=== PATIENT | female | born 1980 | race Caucasian/White ===

== ENCOUNTER 2022-07-28 15:10 | Emergency (ER) | payer OTHER, SELFPAY ==
--- NOTE | ~2022-07-28 | US_ITS ---
EXAMINATION: US OB <=14 wk fetus w TV INDICATION: and bleeding TECHNIQUE: Sonography of the pelvis was performed by transabdominal and transvaginal techniques. COMPARISON: None. RESULT: Uterus: Orientation: Anteverted. 10.7 x 5.7 x 7.0 cm. Myometrium: Multiple fibroids, measuring up to 1.5 cm. Gestation: - Intrauterine gestational sac: Irregular hypoechoic endometrial structure or collection. - Mean Sac Diameter: 0.9 cm, corresponding gestational age 5 week 5 days. - Yolk sac: None visualized. - Embryo: Not seen. -Subgestational hematoma: Absent . Right ovary: 4.0 x 2.0 x 1.9 cm. Normal sonographic appearance with physiologic follicles. . No ad nexal mass. Left ovary: 2.9 x 1.1 x 1.3 cm. Normal sonographic appearance with physiologic follicles. . No adn exal mass. Pelvis free fluid: None. IMPRESSION: Irregular endometrial structures/collection which may represent a gestational sac, without identifica tion of a pole, likely representing an intrauterine of uncertain viability. Recommend continued clinical/laboratory and sonographic follow-up. Estimated Gestational Age: 5 weeks, 5 days by mean gestational sac diameter. ASH by ultrasound 2022. Reviewed, dictated and finalized at location K. ARCHITECT IMPRESSION: Irregular endometrial structures/collection which may represent a gestational s ac, without identification of a pole, likely representing an intrauterine of uncertain viability. Recommend continued clinical/laboratory and sonographic follow-up. Estimated Gestational Age: 5 weeks, 5 days by mean gestational sac diameter. E DD by ultrasound 03/25/2023.
[2022-07-28 15:13] VITALS: BP 129/64; PULSE 107; RESP 16; TEMP 36.2; O2SAT 100
--- NOTE | 2022-07-28 15:35 | ED.GENADULT ---
HPI - General Adult General Chief complaint: Vaginal Bleeding Stated complaint: 8 weeks 5 days spotting and cramping Time Seen by Provider: 07/28/22 15:31 Source: RN notes reviewed History of Present Illness HPI narrative: Patient presents emergency department from home for vaginal bleeding in . Patient states she is approximately 8 weeks patient is G3, P2 states that she began to have some dark brown vaginal bleeding yesterday continued today states is associated with some mild left lower abdominal pain patient states that she is followed by Dr. Waldron but has not had an evaluation yet for this and has not had an ultrasound she states she did not take anything for the pain the pain is described as cramping in nature she denies any fevers or chills nausea vomiting or any other symptoms Related Data Home Medications Medication Instructions Recorded Confirmed insulin glargine 100 unit/mL (3 unit subcut 07/28/22 07/28/22 mL) subcutaneous pen (Lantus Solostar U-100 Insulin) insulin lispro 100 unit/mL subcut 07/28/22 subcutaneous pen (Humalog KwikPen (U-100) Insulin) Allergies Allergy/AdvReac Type Severity Reaction Status Date / Time azithromycin Allergy Unknown Hives Verified 07/28/22 15:11 amoxicillin AdvReac Unknown Verified 07/28/22 15:11 Review of Systems Review of Systems: Gen.: Denies fevers or chills ENT: Denies congestion Respiratory: Denies shortness of breath or cough CV: Denies chest pain or palpitations GI: Reports left lower quadrant abdominal pain, denies nausea, emesis or diarrhea see HPI Musculoskeletal: Denies back pain or muscle pain Neuro: Denies numbness, tingling, weakness or focal weakness Skin: Denies rash Except as documented, all other systems reviewed and negative [facility] Past Medical History Medical History (Updated 07/28/22 @ 17:32 by Sahil Sage DO) Diabetes mellitus Social History Social History (Updated 07/28/22 @ 15:36 by Sahil Sage DO) Smoking status: Never smoker Exam Narrative: APPEARANCE: No acute distress, nontoxic, resting in bed HEENT: Normocephalic, atraumatic, RESPIRATORY: No respiratory distress, clear to auscultation bilaterally with no rhonchi wheezing or rales CARDIOVASCULAR: RRR s murmur ABDOMINAL: Soft nondistended mild tenderness in left lower quadrant no tenderness in the right lower quadrant, right upper quadrant left upper quadrant no rebound or guarding : Normal external exam, small amount of dark brownish blood in vaginal canal cervix is closed with no active bleeding, no adnexal tenderness MUSCULOSKELETAl: Moves all extremities. NEURO: Awake and alert. Following commands, speech normal, no focal deficits SKIN:: Warm, dry. Normal Color PSYCHIATRIC: Normal affect/mood Course Course Emergency Course: Reviewed old records patient with a positive blood type from January [address] Cabrera for Dr. Waldron for [facility]ACH[facility] presentation work-up recommends patient be discharged at this time with follow-up in the office on Saturday for repeat beta-hCG and further evaluation Patient is feeling better at this time repeat abdominal exam soft nontender. Discussed with patient results of workup and diagnosis. Discussed need for follow-up with primary care, proper use of medication, and reasons to return to the emergency department. Patient understands and agrees to current treatment plan Vital Signs Vital signs: Vital Signs Temperature 97.2 F L 07/28/22 15:13 Pulse Rate 107 H 07/28/22 15:13 Respiratory Rate 16 07/28/22 15:13 Blood Pressure 129/64 07/28/22 15:13 Pulse Oximetry 100 07/28/22 15:13 Oxygen Delivery Room Air 07/28/22 15:13 Temperature 97.2 F L 07/28/22 15:13 Pulse Rate 107 H 07/28/22 15:13 Respiratory Rate 16 07/28/22 15:13 Blood Pressure 129/64 07/28/22 15:13 Pulse Oximetry 100 07/28/22 15:13 Oxygen Delivery Room Air 07/28/22 15:13
[2022-07-28 15:38] LABS: Basophils Absolute Auto 0.1 K/mm3 (0.0-0.1); Basophils Percent Auto 0.3 % (0.2-1.2); Eosinophils Absolute Auto 0.1 K/mm3 (0-0.3); Eosinophils Percent Auto 0.7 % (0-4.4); Hematocrit 45.3 % (37.0-47.0); Hemoglobin 15.4 g/dL (12.0-15.0); Immature Granulocyte Absolute 0.07 K/mm3 (0.00-0.031); Immature Granulocyte Percent A 0.5 % (0-0.5); Lymphocytes Absolute Auto 2.82 K/mm3 (0.9-3.2); Lymphocytes Percent Auto 19.2 % (18.3-44.2); Mean Corpuscular Volume 91.3 fl (80-100); Monocytes Absolute Auto 0.6 K/mm3 (0.1-0.6); Neutrophils Absolute Auto 11.1 K/mm3 (1.3-6.7); Neutrophils Percent Auto 75.3 % (45.5-73.1); Platelet Count Result 297 k/mm3 (150-375); Red Blood Count 4.96 M/mm3 (4.2-5.4); Red Cell Distribution Width 12.2 % (11.5-14.5); White Blood Count 14.7 K/mm3 (4.5-10.0)
[2022-07-28 16:11] LABS: Beta HCG Quantitative 239.75 mIU/ML
[2022-07-28] MEDS: ACETAMINOPHEN 500 MG TABLET 1000 MG PO (17:26)
== END 2022-07-28 17:40 | disposition home or self-care (01) ==
PROVIDERS: Emergency Medicine; Emergency Provider Emergency Medicine; PCP Physician Assistant
DX: O20.0 Threatened abortion (principal); O24.111 Pre-existing type 2 diabetes mellitus, in pregnancy, first trimester; Z3A.01 Less than 8 weeks gestation of pregnancy; Z79.4 Long term (current) use of insulin
CPT/HCPCS: 36415; 76801; 76817; 84702; 85025; 85461; 86850; 86900; 86901; 99284; A9270

== ENCOUNTER 2022-07-30 13:56 | Outpatient (CLI) | payer OTHER, SELFPAY | END 2022-07-30 13:57 | disposition home or self-care (01) | PROVIDERS: PCP Physician Assistant; Visit Provider Obstetrics & Gynecology Gynecology | DX: O20.0 Threatened abortion (principal); Z3A.00 Weeks of gestation of pregnancy not specified | CPT/HCPCS: 36415; 84702 ==

== ENCOUNTER 2022-08-08 08:40 | Outpatient (CLI) | payer OTHER, SELFPAY ==
--- NOTE | ~2022-08-08 | US_ITS ---
Pelvic ultrasound. Clinical History: First trimester , vaginal bleeding Technique: Realtime transabdominal and transvaginal scanning of the pelvis was performed. Color flow Doppler and Doppler spectral analysis were performed. Findings: The uterus is anteverted. There is a possible early intrauterine gestational sac, with tresa mated gestational age of 5 weeks 2 days based on average sac diameter 7 mm. Small submucosal fibroid present, measuring 1.2 cm in diameter. The right ovary measures 2.3 x 3.9 x 2.1 cm. No significant right ovarian or adnexal mass is seen. The left ovary measures 2.4 x 1.9 x 1.8 cm. No significant left ovarian or adnexal mass is seen. There is no evidence of free fluid in the cul de sac. Impression: Probable early intrauterine gestational sac, with estimated gestational age of 5 weeks 2 days based o n average sac diameter. No visible pole or yolk sac at this time, which could be commensurate w ith the early gestational age. Consider follow-up ultrasound in 7-10 days to assess for development f etal pole/cardiac activity. Serial beta hCG trending may be useful. Suspected 1.2 cm submucosal fibroid. Reviewed, dictated and finalized at location . D [employer]ICATION SPECIALIST Impression: Probable early intrauterine gestational sac, with estimated gestational age of 5 weeks 2 days based on average sac diameter. No visible pole or yolk sac at this time, which could be commensurate with the early gestational age. Cons ider follow-up ultrasound in 7-10 days to assess for development pole/car diac activity. Serial beta hCG trending may be useful. Suspected 1.2 cm submucosal fibroid.
== END 2022-08-08 08:41 | disposition home or self-care (01) ==
LOC: CHSIMG 08:41
PROVIDERS: PCP Physician Assistant; Visit Provider Obstetrics & Gynecology Gynecology
DX: O26.851 Spotting complicating pregnancy, first trimester (principal); O20.0 Threatened abortion
CPT/HCPCS: 76801; 76817

== ENCOUNTER 2022-08-13 15:30 | Outpatient (CLI) | payer OTHER, SELFPAY | END 2022-08-13 15:31 | disposition home or self-care (01) | LOC: CHSLAB 15:32 | PROVIDERS: PCP Physician Assistant; Visit Provider Obstetrics & Gynecology Gynecology | DX: Z32.01 Encounter for pregnancy test, result positive (principal) | CPT/HCPCS: 36415; 84702 ==

== ENCOUNTER 2022-08-15 15:01 | Outpatient (CLI) | payer OTHER, SELFPAY | END 2022-08-15 15:02 | disposition home or self-care (01) | PROVIDERS: PCP Physician Assistant; Visit Provider Physician Assistant | DX: Z32.01 Encounter for pregnancy test, result positive (principal) | CPT/HCPCS: 36415; 84702 ==

== ENCOUNTER 2022-08-17 13:53 | Outpatient (CLI) | payer OTHER, SELFPAY ==
--- NOTE | ~2022-08-17 | US_ITS ---
Pelvic ultrasound. Clinical History: First trimester , assess for viability Technique: Realtime transabdominal and transvaginal scanning of the pelvis was performed. Color flow Doppler and Doppler spectral analysis were performed. Findings: The uterus is anteverted. There is an early intrauterine gestational sac, with yolk sac pre sent but no visible pole. Average sac diameter of 1.4 cm corresponds to an estimated gestationa l age of 5 weeks 4 days. Probable submucosal fibroids are present, measuring 1.5 cm and 1.6 cm in forrest meter respectively.. Neither ovary seen. No other adnexal mass seen. There is no evidence of free fluid in the cul de sac. Impression: Intrauterine gestation with estimated gestational age of 5 weeks 4 days. Yolk sac present without vis ible pole, which could be commensurate with the early gestational age. Probable submucosal fibroids, as noted above. Reviewed, dictated and finalized at [facility]. H FEEDER Impression: Intrauterine gestation with estimated gestational age of 5 weeks 4 days. Yolk s ac present without visible pole, which could be commensurate with the ear ly gestational age. Probable submucosal fibroids, as noted above.
== END 2022-08-17 13:54 ==
PROVIDERS: PCP Obstetrics & Gynecology Gynecology; Visit Provider Obstetrics & Gynecology Gynecology
DX: O36.80X0 Pregnancy with inconclusive fetal viability, not applicable or unspecified (principal); Z3A.00 Weeks of gestation of pregnancy not specified
CPT/HCPCS: 76801; 76817

== ENCOUNTER 2023-01-02 08:45 | Outpatient (CLI) | payer OTHER, SELFPAY ==
--- NOTE | 2023-01-02 11:00 | NEURO_ITS ---
Impression: # Complains of left foot drop. 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 # Needle/EMG exam neurogenic. # Clinical correlation recommended. Nerve Conduction Studies Anti Sensory Summary Table Stim Site NR Peak (ms) P-T Amp (?V) Site1 Site2 Delta-P (ms) Dist (cm) Rylan (m/s) Left Sup Fibular Anti Sensory (Ant Lat Mall) NO RESPONSE 14 cm NR 14 cm Ant Lat Mall 16.0 Left Sural Anti Sensory (Lat Mall) NO RESPONSE Calf NR Calf Lat Mall 16.0 Motor Summary Table Stim Site NR Onset (ms) O-P Amp (mV) Site1 Site2 Delta-0 (ms) Dist (cm) Rylan (m/s) Left Peroneal Motor (Vastus Med) NO RESPONSE Ankle NR Popit Ankle 0.0 Popit NR Left Tibial Motor (Abd Juarez Brev) Ankle 5.9 2.6 Knee Ankle 12.6 48.0 38 Knee 18.5 2.0 F Wave Studies NR F-Lat (ms) L-R F-Lat (ms) Left Peroneal (Mrkrs) (EDB) NO RESPONSE NR Left Tibial (Mrkrs) (Abd Hallucis) 71.96 EMG Side Muscle Nerve Root Ins Act Fibs Amp Dur Recrt Comment Left AntTibialis Dp Br Fibular L4-5 Nml Nml Decr >12ms Reduced Left Gastroc Tibial S1-2 Nml Nml Nml Nml Nml Left Fibularis Long Sup Br Fibular L5-S1 Nml Nml Nml Nml Nml Left Flex Dig Long Tibial L5-S2 Nml Nml Nml Nml Nml Left Ext Dig Brev Dp Br Fibular L5, S1 Nml Nml Decr >12ms Reduced Left QuadratusFem QuadFemoris L4-5, S1 Nml Nml Nml Nml Reduced MTDD
== END 2023-01-02 08:46 | disposition home or self-care (01) ==
LOC: ANHNEURO 08:49
PROVIDERS: PCP Physician Assistant; Visit Provider Physician Assistant
DX: M21.372 Foot drop, left foot (principal); G57.82 Other specified mononeuropathies of left lower limb
CPT/HCPCS: 95886; 95908

== ENCOUNTER 2023-01-08 15:14 | Outpatient (RCR) | payer OTHER, SELFPAY ==
--- NOTE | 2023-01-08 17:50 | OPREHPOC ---
Outpatient Therapy Plan of Care This is a Multidisciplinary Plan of Care that may contain components documented by all disciplines (PT, OT, and ST.) PT Problem 1 PT Problem #1 Knowledge Deficit PT Goal 1 Goal Patient to demonstrate independence with HEP Target Visit 6 PT Problem 2 PT Problem #2 Impaired Range of Motion PT Goal 1 Goal Patient to demonstrate L ankle DF to 0 deg to decrease fall risk with ambulation Target Visit 12 PT Problem 3 PT Problem #3 Impaired Strength PT Goal 1 Goal Patient to demonstrate 3+/5 strength of L ankle to return to walking prolonged periods of time at PLOF Target Visit 12 PT Problem 4 PT Problem #4 Impaired Functional Mobil PT Goal 1 Goal 1.Patient to improve LEFS by 20% 2.Patient to deny occurance of falls 3.Patient to report working a full shift with no toe drag Target Visit 12
--- NOTE | 2023-01-08 17:50 | PTOPEVAL1 ---
Assessment and note entered by Alissa Coelho DPT Evaluation Information Assessment Status Evaluation Diagnosis L foot drop, weakness Onset 01/04/23 Subjective Information Patient reports about 3 months ago she worked many shifts in a row and devolped foot drop. Since then she has had many falls. She reports she had a nerve conduction test and the peroneal nerve is compressed. She reports difficulty with walking, performing house hoold tasks, and navigating stairs. She reports she has a follow up with a suregon. She denies pain Reported Pain Level Pain Score 0: Self Report Assessment PT Clinical Summary Patient is a 42 year old female who presents to PT with L foot drop. Patient demonstrates decreased L ankle weakness, decreased L ankle AROM and gait impairments impairing her ability to ambulate without fall risk, nagivate stairs and complete house hold tasks. Patient would benefit from skilled PT to address impairments and return to PLOF. Plan of Care Interventions Electrical Stimulation,Gait Training,Hot Pack/Cold Pack,Manual Therapy,Neuro Re-education,Patient/ Caregiver Educati,Therapeutic Activities, Therapeutic Exercise PT Services Indicated Yes Treatment Frequency and 2x weekly for 12 visits Duration These treatments will address the objective and functional deficits as defined above. The patient will be advanced safely and appropriately in order for the patient to progress towards his/her prior level of function. Additional exercises will be introduced and as well as a comprehensive home exercise program upon discharge, if needed, ?to ensure carryover of functional gains achieved in the clinic. This treatment plan has been reviewed and agreement upon by the patient.
== END 2023-01-08 17:00 | disposition still patient (30) ==
LOC: CHSPT 15:14
PROVIDERS: PCP Family Medicine; Visit Provider Physician Assistant
DX: M21.372 Foot drop, left foot (principal)
CPT/HCPCS: 97110; 97140; 97161

== ENCOUNTER 2023-02-18 13:09 | Outpatient (CLI) | payer OTHER, SELFPAY ==
--- NOTE | ~2023-02-18 | XR_ITS ---
EXAMINATION: XR chest 2V DATE: 02/18/2023 13:45 INDICATION: History of tobacco use TECHNIQUE: PA and lateral views of the chest are obtained. COMPARISON: None available FINDINGS: The lungs are free of acute opacities. No pleural effusion or pneumothorax. The cardiomedia stinal silhouette is normal. The visualized bones and soft tissues are unremarkable. IMPRESSION: 1. No acute cardiopulmonary abnormality. Reviewed, dictated and finalized at location A.
== END 2023-02-18 13:10 | disposition home or self-care (01) ==
PROVIDERS: PCP Family Medicine; Visit Provider Physician Assistant
DX: Z01.818 Encounter for other preprocedural examination (principal)
CPT/HCPCS: 71046; 93005

== ENCOUNTER 2023-02-23 22:41 | Emergency (ER) | payer OTHER, SELFPAY ==
[2023-02-23 22:47] VITALS: BP 112/65; PULSE 96; RESP 20; TEMP 36.4; O2SAT 96
--- NOTE | 2023-02-24 00:41 | PC.NURSE ---
Patient talking loudly with other patients in the waiting room. Stating, I have been her fucking two hours and they keep taking people back before me. You know black people, it a racial thing. I'm leaving and going to another ER . Upon walking out the ER doors patient stated, Fucking black lives matter more .
== END 2023-02-24 00:41 | disposition left against medical advice (07) ==
PROVIDERS: PCP Family Medicine
DX: K59.00 Constipation, unspecified (principal)
CPT/HCPCS: 99199

== ENCOUNTER 2023-03-26 13:47 | Outpatient (RCR) | payer OTHER, SELFPAY ==
--- NOTE | 2023-03-26 14:03 | OPREHPOC ---
Outpatient Therapy Plan of Care This is a Multidisciplinary Plan of Care that may contain components documented by all disciplines (PT, OT, and ST.) PT Problem 1 PT Problem #1 Knowledge Deficit PT Goal 1 Goal Patient to demonstrate independence with HEP Target Visit 6 PT Problem 2 PT Problem #2 Impaired Range of Motion PT Goal 1 Goal Patient to demonstrate L ankle DF to 0 deg to decrease fall risk with ambulation Target Visit 12 PT Problem 3 PT Problem #3 Impaired Strength PT Goal 1 Goal Patient to demonstrate 4/5 strength of L ankle to return to walking prolonged periods of time at PLOF Target Visit 12 PT Problem 4 PT Problem #4 Impaired Functional Mobil PT Goal 1 Goal 1.Patient to improve LEFS by 20% 2.Patient to deny occurance of falls 3.Patient to report working a full shift with no toe drag Target Visit 12
--- NOTE | 2023-03-26 14:03 | PTOPREEVAL ---
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 She reports since she has notived some improvement in DF and eversion but has had difficulty with big toe extension. She reports her gait has improved and has less instance of toe drag. She reports she has worked a little but otherwise has been limited in activity . She reports since surgery she has also had more feeling in her lower leg. Reported Pain Level Pain Score 0: Self Report Assessment PT Clinical Summary Patient returns to PT following peroneal nerve release on 02/20/23. She demonstrates decreased L ankle ROM, decreased L ankle strength and impaired gait mechanincs limiting her ability to ambulate prolonged periods, navigate stairs and work. She would benefit from skilled PT to address impairments and return to PLOF. Plan of Care Interventions Therapeutic Exercise,Patient/Caregiver Educati, Manual Therapy,Neuro Re-education,Therapeutic Activities,Hot Pack/Cold Pack,Electrical Stimulation,Gait Training PT Services Indicated Yes Treatment Frequency and 2x weekly for 12 visits Duration These treatments will address the objective and functional deficits as defined above. The patient will be advanced safely and appropriately in order for the patient to progress towards his/her prior level of function. Additional exercises will be introduced and as well as a comprehensive home exercise program upon discharge, if needed, ?to ensure carryover of functional gains achieved in the clinic. This treatment plan has been reviewed and agreement upon by the patient.
== END 2023-03-26 15:31 | disposition home or self-care (01) ==
LOC: CHSPT 13:47
PROVIDERS: PCP Family Medicine
DX: M21.372 Foot drop, left foot (principal); G57.30 Lesion of lateral popliteal nerve, unspecified lower limb
CPT/HCPCS: 97110; 97164

== ENCOUNTER 2023-08-23 10:11 | Emergency (ER) | payer OTHER, SELFPAY ==
[2023-08-23 10:09] VITALS: BP 119/61; PULSE 89; RESP 15; TEMP 36.4; O2SAT 98
--- NOTE | 2023-08-23 10:34 | ED.GENADULT ---
HPI - General Adult General Chief complaint: Urogenital-Female Stated complaint: unable to urinate Time Seen by Provider: 08/23/23 10:22 History of Present Illness HPI narrative: Patient 43-year-old female presents emergency department with chief complaint of suprapubic pain inability to have urine draining from her catheter. The patient reports that her catheter was last changed approximately 3 weeks ago and reports that her urine has had sediment and has had little output out of the catheter the patient now reports that she has a fullness sensation in her suprapubic region and reports she is unable to get comfortable. The patient reports that she had a spinal injury status post surgery patient and has also developed a coccyx wound she is followed by wound care provider. The patient reports that she had osteomyelitis and has completed her PICC line antibiotics and is now on oral antibiotics. Related Data Home Medications Medication Instructions Recorded Confirmed insulin glargine 100 unit/mL (3 unit subcut 07/28/22 07/28/22 mL) subcutaneous pen (Lantus Solostar U-100 Insulin) insulin lispro 100 unit/mL subcut 07/28/22 subcutaneous pen (Humalog KwikPen (U-100) Insulin) Allergies Allergy/AdvReac Type Severity Reaction Status Date / Time azithromycin Allergy Unknown Hives Verified 02/23/23 22:55 amoxicillin AdvReac Unknown Verified 02/23/23 22:55 Review of Systems Review of Systems: A 10 system review of systems was completed on the patient and is negative except for what is stated in the HPI. Nursing and ancillary documentation was reviewed. [facility] Past Medical History Medical History Diabetes mellitus Social History Social History Smoking status: Never smoker Exam Narrative: GENERAL: Well-appearing, well-nourished, and in no acute distress. HEAD: Normocephalic, atraumatic. EYES: PERRLA and EOMI. ENT: Nares clear, no rhinorrhea or epistaxis. Mucous membranes moist. NECK: Supple. CHEST: Clear to auscultation. No respiratory distress. HEART: Regular rate and rhythm. No murmur heard. Normal peripheral pulses. ABDOMEN: Soft, nontender, nondistended, normal active bowel sounds. Marcos catheter in place with large amount of sediment in the tube and no drainage EXTREMITIES: Normal range of motion. No edema. SKIN: Warm, dry, no rash. Sacral wound present pink tissue no purulent drainage NEURO: No new focal deficits, weakness of bilateral lower extremities. Alert and oriented x3. PSYCH: Normal mood and affect. Course Vital Signs Vital signs: Vital Signs Temperature 36.4 C 08/23/23 10:09 Pulse Rate 89 08/23/23 10:09 Respiratory Rate 15 08/23/23 10:09 Blood Pressure 119/61 08/23/23 10:09 Pulse Oximetry 98 08/23/23 10:09 Oxygen Delivery Room Air 08/23/23 10:09 Temperature 36.4 C 08/23/23 10:09 Pulse Rate 87 08/23/23 11:00 Respiratory Rate 15 08/23/23 11:00 Blood Pressure 117/75 08/23/23 11:00 Pulse Oximetry 100 08/23/23 11:00 Oxygen Delivery Room Air 08/23/23 10:09 Medical Decision Making [facility] Narrative Medical decision making narrative: Differential diagnosis includes Marcos malfunction, UTI, sepsis, The Marcos catheter was found to be malfunctioning and clogged. Marcos catheter was changed and urine was drained. Urinalysis showed no evidence UTI the patient's vital signs are stable the patient was offered blood work but has decided to not do blood work at this time. Vital Signs Vital Signs: Vital Signs Temperature 36.4 C 08/23/23 10:09 Pulse Rate 89 08/23/23 10:09 Respiratory Rate 15 08/23/23 10:09 Blood Pressure 119/61 08/23/23 10:09 Pulse Oximetry 98 08/23/23 10:09 Oxygen Delivery Room Air 08/23/23 10:09 Temperature 36.4 C 08/23/23 10:09 Pulse Rate 87 08/23/23 11:00 Resp
[2023-08-23 10:56] LABS: Appearance Urine Cloudy (Clear); Bacteria Urine None Seen /hpf; Bilirubin Urine Negative (Negative); Blood Urine Negative (Negative); Color Urine Yellow (Yellow); Glucose Urine UA Negative (Negative); Ketones Urine Negative (Negative); Leukocyte Esterase Ur Trace LEU/UL (Negative); Nitrate Urine Negative (Negative); Non Pathogenic Casts 0-2; Protein Urine 1+ mg/dL (Negative); RBC Urine 0-2 /hpf (0-2); Specific Grav Ur 1.019 (1.001-1.035); Squamous Epithelial Cell Urine None seen /hpf (Few); Urobilinogen Urine 0.2 mg/dL (<2.0); WBC Urine 0-5 /hpf; pH Urine 8.5 (5.0-9.0)
[2023-08-23 11:00] VITALS: BP 117/75; PULSE 87; RESP 15; O2SAT 100
[2023-08-23 11:02] VITALS: BP 117/75; PULSE 88; RESP 17; O2SAT 100
[2023-08-23 11:03] LABS: Add Urine Microscopic? YES
[2023-08-23 11:18] VITALS: PULSE 94; RESP 19; O2SAT 100
--- NOTE | 2023-08-23 11:22 | PC.NURSE ---
Pt arrived to ED with prehospital urethral catheter in place, gross amount of sediment present in tubing, tubing not secured. Pt had >999mL on bladder scan. Catheter replaced with clear urine return.
--- NOTE | 2023-08-23 11:39 | PC.NURSE ---
pt would like to decline blood work today. 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 notified and no new orders at this time
[2023-08-23 11:45] VITALS: BP 115/73; PULSE 90; RESP 12; O2SAT 100
--- NOTE | 2023-08-23 13:25 | PC.NURSE ---
replaced sacrum dressing and advised and educated pt when to change again.
[2023-08-23 13:27] VITALS: BP 119/75; PULSE 73; RESP 17; TEMP 36.9; O2SAT 100
--- NOTE | 2023-09-05 13:04 | PC.NURSE ---
LATE ENTRY This note is being entered to document information to the patient's record. The following information was omitted on [08/23/23], by [Dr. Juan]. KAYDEN for insertion of ledbetter catheter to replace existing indwelling cath.
== END 2023-08-23 13:34 | disposition home or self-care (01) ==
PROVIDERS: Emergency Provider Emergency Medicine; PCP Family Medicine
DX: T83.098A Other mechanical complication of other urinary catheter, initial encounter (principal); R33.9 Retention of urine, unspecified; M86.9 Osteomyelitis, unspecified; E11.9 Type 2 diabetes mellitus without complications; Z79.4 Long term (current) use of insulin; Y84.6 Urinary catheterization as the cause of abnormal reaction of the patient, or of later complication, without mention of misadventure at the time of the procedure
CPT/HCPCS: 51702; 81001; 99283

== ENCOUNTER 2023-09-18 13:43 | Emergency (ER) | payer OTHER, MEDICAID, SELFPAY ==
[2023-09-18 13:47] VITALS: BP 152/75; PULSE 97; RESP 21; TEMP 36.2; O2SAT 95
--- NOTE | 2023-09-18 14:13 | ED.GENADULT ---
HPI - General Adult General Chief complaint: Urogenital-Female Stated complaint: urinary catheter issue Time Seen by Provider: 09/18/23 13:52 History of Present Illness HPI narrative: patient is a 43-year-old female who presents ER with urinary retention. Patient reports her catheters not been draining since yesterday. She is having lower abdominal pain/ pressure. Patient reports significant anxiety due to recent hospitalizations and traumatic events in her life. Patient underwent aortic bypass grafting in May of 2023. When she woke up she felt as if there is something wrong and she went back in to surgery. 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 Patient does still have your. She also reports that she had a septic infection from E coli while she was in rehab in [place]. This was in July of this year. Patient denies any new fevers or chills. She has not had recurrent issues with Marcos catheter clogging off. Related Data Home Medications Medication Instructions Recorded Confirmed insulin glargine 100 unit/mL (3 unit subcut 07/28/22 07/28/22 mL) subcutaneous pen (Lantus Solostar U-100 Insulin) insulin lispro 100 unit/mL subcut 07/28/22 subcutaneous pen (Humalog KwikPen (U-100) Insulin) Allergies Allergy/AdvReac Type Severity Reaction Status Date / Time azithromycin Allergy Unknown Hives Verified 02/23/23 22:55 amoxicillin AdvReac Unknown Verified 02/23/23 22:55 Review of Systems Review of Systems: All systems reviewed & are unremarkable except as noted in HPI and below Constitutional: Constitutional: Reports no additional constitutional complaints ENT: Reports system reviewed and no additional complaints, except as documented Cardiovascular: Cardiovascular: Reports no additional cardiovascular complaints Respiratory: Respiratory: Reports no additional respiratory complaints Gastrointestinal: Gastrointestinal: Reports abdominal pain, Denies nausea and Denies vomiting Genitourinary: Genitourinary: Reports as per HPI Comments: +Urinary Retention PMFSH Past Medical History Medical History (Updated 09/18/23 @ 15:32 by Esdras Andersen MD) Diabetes mellitus Spinal cord stroke Surgical History Surgical History (Updated 09/18/23 @ 14:16 by Esdras Andersen MD) History of aorto-femoral bypass Social History Social History Smoking status: Never smoker Exam Narrative: GENERAL: Anxious-appearing, well-nourished, and in no acute distress. HEAD: Normocephalic, atraumatic. ENT: Mucous membranes moist. CHEST: Clear to auscultation. No respiratory distress. HEART: Regular rate and rhythm. Normal peripheral pulses. ABDOMEN: Soft, suprapubic discomfort, nondistended. EXTREMITIES: lower extremity paralysis. Normal strength and range of motion upper extremities. SKIN: Warm, dry, no rash. NEURO: Alert and oriented x3. PSYCH: Teasrful and anxious but normal thought content. Course Course Emergency Course: 1800 mL removed after catheter exchange. Urine with trace leukocyte esterase but no bacteria or white blood cells. Discharge home. Vital Signs Vital signs: Vital Signs Temperature 97.1 F L 09/18/23 13:47 Pulse Rate 97 09/18/23 13:47 Respiratory Rate 21 H 09/18/23 13:47 Blood Pressure 152/75 H 09/18/23 13:47 Pulse Oximetry 95 09/18/23 13:47 Oxygen Delivery Room Air 09/18/23 13:47 Temperature 97.1 F L 09/18/23 13:47 Pulse Rate 97 09/18/23 13:47 Respiratory Rate 21 H 09/18/23 13:47 Blood Pressure 152/75 H 09/18/23 13:47 Pulse Oximetry 95 09/18/23 13:47 Oxygen Delivery Room Air 09/18/23 13:47 Medical Decision Making Vital Signs Vital Signs: Vital Signs Temperature 97.1 F L 09/18/23 13:47 Pulse Rate 97 09/18/23 13:47 Respiratory Rate 21 H 09/18/23 13:47
[2023-09-18 14:55] LABS: Appearance Urine Cloudy (Clear); Bacteria Urine None Seen /hpf; Bilirubin Urine Negative (Negative); Blood Urine Negative (Negative); Color Urine Yellow (Yellow); Glucose Urine UA Negative (Negative); Ketones Urine Negative (Negative); Leukocyte Esterase Ur Trace LEU/UL (Negative); Nitrate Urine Negative (Negative); Non Pathogenic Casts 0-2; Protein Urine Negative (Negative); RBC Urine 0-2 /hpf (0-2); Squamous Epithelial Cell Urine None Seen /hpf (Few); Urobilinogen Urine 0.2 mg/dL (<2.0); WBC Urine 0-5 /hpf (0-3); pH Urine 7.5 (5.0-9.0)
[2023-09-18 15:13] LABS: Add Urine Microscopic? YES
[2023-09-18 15:51] VITALS: BP 162/68; PULSE 98; RESP 19; O2SAT 98
== END 2023-09-18 16:29 | disposition home or self-care (01) ==
PROVIDERS: Emergency Provider Emergency Medicine; PCP Family Medicine
DX: T83.098A Other mechanical complication of other urinary catheter, initial encounter (principal); E11.9 Type 2 diabetes mellitus without complications; G82.20 Paraplegia, unspecified; Z95.1 Presence of aortocoronary bypass graft; Z79.4 Long term (current) use of insulin; Y84.6 Urinary catheterization as the cause of abnormal reaction of the patient, or of later complication, without mention of misadventure at the time of the procedure
CPT/HCPCS: 51702; 81001; 99283

== ENCOUNTER 2023-10-02 16:41 | Emergency (ER) | payer OTHER, MEDICAID, SELFPAY ==
[2023-10-02 16:40] VITALS: BP 111/67; PULSE 100; RESP 16; TEMP 36.9; O2SAT 100
--- NOTE | 2023-10-02 17:24 | ED.FEMALEGU ---
HPI - Female Genitourinary General Chief complaint: Urogenital-Female Stated complaint: ledbetter came out Time Seen by Provider: 10/02/23 17:00 Source: patient Mode of arrival: ambulatory Limitations: no limitations History of Present Illness HPI Narrative: This is a 43-year-old female who presents to the ED via EMS from home for chief complaint of Ledbetter catheter issue. Patient reports that her Ledbetter catheter came last night. She has had suprapubic abdominal discomfort due to urinary retention. She has history of spinal cord stroke and has chronic Ledbetter catheter use. Patient is unsure why it came out, but feels that this happened when she was coughing last night. She reports that she to cough hard thinks that may have popped the Ledbetter balloon. Denies fevers, chills, nausea, vomiting, diarrhea chest pain and shortness of breath. Denies hematuria. Related Data Home Medications Medication Instructions Recorded Confirmed insulin glargine 100 unit/mL (3 unit subcut 07/28/22 07/28/22 mL) subcutaneous pen (Lantus Solostar U-100 Insulin) insulin lispro 100 unit/mL subcut 07/28/22 subcutaneous pen (Humalog KwikPen (U-100) Insulin) Allergies Allergy/AdvReac Type Severity Reaction Status Date / Time azithromycin Allergy Unknown Hives Verified 02/23/23 22:55 amoxicillin AdvReac Unknown Verified 02/23/23 22:55 Review of Systems Review of Systems: All systems as dictated in [facility] Past Medical History Medical History (Updated 10/02/23 @ 17:43 by Juan Miguel Lakhani PA-C) Diabetes mellitus Spinal cord stroke Surgical History Surgical History (Updated 09/18/23 @ 14:16 by Esdras Andersen MD) History of aorto-femoral bypass Social History Social History Smoking status: Never smoker Exam Narrative: GENERAL: Well-appearing, well-nourished, and in no acute distress. HEAD: Normocephalic, atraumatic. EYES: PERRLA and EOMI. ENT: Nares clear, no rhinorrhea or epistaxis. Mucous membranes moist. Oropharynx without tonsillar hypertrophy exudate or other lesions. NECK: Supple. No adenopathy or masses. CHEST: No respiratory distress. Clear to auscultation. No wheezes rales or rhonchi HEART: Regular rate and rhythm. No murmur heard. Normal peripheral pulses. ABDOMEN: Soft, nontender, nondistended, normal active bowel sounds. MSK: Normal range of motion. No edema. SKIN: Warm, dry, no rash. NEURO: Alert and oriented x3. No focal deficits. PSYCH: Normal mood and affect. : Ledbetter catheter has been replaced by nursing staff. It is actively draining clear yellow urine. Course Vital Signs Vital signs: Vital Signs Temperature 98.5 F 10/02/23 16:40 Pulse Rate 100 10/02/23 16:40 Respiratory Rate 16 10/02/23 16:40 Blood Pressure 111/67 10/02/23 16:40 Pulse Oximetry 100 10/02/23 16:40 Oxygen Delivery Room Air 10/02/23 16:40 Temperature 98.5 F 10/02/23 16:40 Pulse Rate 100 10/02/23 16:40 Respiratory Rate 16 10/02/23 16:40 Blood Pressure 111/67 10/02/23 16:40 Pulse Oximetry 100 10/02/23 16:40 Oxygen Delivery Room Air 10/02/23 16:40 MDM - Female Genitourinary MDM Narrative Medical decision making narrative: This is a 43-year-old female who presents to the ED with chief complaint of Ledbetter catheter ?popping out? last night. Vitals are normal. Exam is unremarkable. No evidence of acute. Nursing staff was able to replace the patient's chronic indwelling Ledbetter catheter here without difficulty. She uses a Ledbetter catheter due to old spinal stroke. After the new catheter was placed a UA was obtained and shows overt evidence of UTI. She is overall well-appearing and prefers to go home at this point without any further workup. Cephalexin given here. Rx for cephalexin given for UTI. Pt will be discharged in stable condition. Return precautions given and supportive measures discussed. Pt is unders
[2023-10-02 17:25] LABS: Appearance Urine Cloudy (Clear); Bacteria Urine 4+ /hpf; Bilirubin Urine Negative (Negative); Blood Urine 2+ (Negative); Color Urine Yellow (Yellow); Glucose Urine UA Negative (Negative); Ketones Urine 1+ mg/dL (Negative); Leukocyte Esterase Ur 3+ LEU/UL (Negative); Nitrate Urine Negative (Negative); Non Pathogenic Casts 0-2; Protein Urine 1+ mg/dL (Negative); RBC Urine 21-50 /hpf (0-2); Specific Grav Ur 1.014 (1.001-1.035); Squamous Epithelial Cell Urine None Seen /hpf (Few); Urobilinogen Urine 0.2 mg/dL (<2.0); WBC Urine >100 /hpf (0-3)
[2023-10-02 17:40] LABS: Add Urine Microscopic? YES
[2023-10-02] MEDS: CEPHALEXIN 500 MG CAPSULE PO (18:03)
[2023-10-02 20:45] VITALS: BP 140/60; PULSE 107; RESP 16; O2SAT 100
== END 2023-10-02 21:15 | disposition home or self-care (01) ==
LOC: ANHED 17:56
PROVIDERS: Emergency Provider Physician Assistant; PCP Family Medicine
DX: N39.0 Urinary tract infection, site not specified (principal); E11.9 Type 2 diabetes mellitus without complications; Z95.1 Presence of aortocoronary bypass graft; Z79.4 Long term (current) use of insulin
CPT/HCPCS: 51702; 81001; 87077; 87086; 87088; 87186; 99283; A9270

== ENCOUNTER 2023-11-08 11:18 | Emergency (ER) | payer OTHER, BC, MEDICAID, SELFPAY ==
[2023-11-08 11:22] VITALS: BP 173/94; PULSE 96; RESP 22; TEMP 36.8; O2SAT 100
--- NOTE | 2023-11-08 12:01 | PC.NURSE ---
Pt pulled EMS IV out of left A/C. Attempted to restart to right wrist, site blew.
--- NOTE | 2023-11-08 12:06 | PC.NURSE ---
Pt states she wants to go home does not want any other treatment. Anila STARKEY notified.
[2023-11-08] MEDS: SODIUM CHLORIDE 0.9% IV 1,000 ML 999 ML IV CONT (12:09)
[2023-11-08] MEDS: ONDANSETRON INJ 4 MG/2 ML VIAL IV PUSH (12:09)
--- NOTE | 2023-11-08 12:22 | ED.NAVMDI ---
HPI - Nausea/Vomiting/Diarrhea General Chief complaint: Nausea/Vomiting/Diarrhea Stated complaint: n/v/d Time Seen by Provider: 11/08/23 11:33 Source: patient Mode of arrival: EMS Limitations: no limitations History of Present Illness HPI Narrative: Patient is a 43-year-old female, with PMH of DM, chronic Marcos catheter, paraplegia r/t spinal cord stroke, who presents the ED via EMS with report of nausea and vomiting. Patient reports she began feeling ill around 5:00 a.m. this morning. She has been unable to keep down any food or drink since then, complains of persistent vomiting. Denies diarrhea or constipation. Denies significant abdominal pain. Denies fevers, but does report hot cold sensation. Denies family members with similar symptoms. Denies cough or cold symptoms. Related Data Home Medications Medication Instructions Recorded Confirmed insulin glargine 100 unit/mL (3 unit subcut 07/28/22 07/28/22 mL) subcutaneous pen (Lantus Solostar U-100 Insulin) insulin lispro 100 unit/mL subcut 07/28/22 subcutaneous pen (Humalog KwikPen (U-100) Insulin) Allergies Allergy/AdvReac Type Severity Reaction Status Date / Time azithromycin Allergy Unknown Hives Verified 02/23/23 22:55 amoxicillin AdvReac Unknown Verified 02/23/23 22:55 Review of Systems Review of Systems: CONSTITUTIONAL: Denies fever, chills, or sweats. CARDIOVASCULAR: Denies chest pain. RESPIRATORY: Denies cough or dyspnea. GASTROINTESTINAL: See HPI. GENITOURINARY: Denies dysuria or hematuria. NEUROLOGIC: Denies headache, dizziness, numbness, or weakness. All systems reviewed & are unremarkable except as noted in HPI and below PMFSH Past Medical History Medical History Diabetes mellitus Spinal cord stroke Surgical History Surgical History History of aorto-femoral bypass Social History Social History Smoking status: Never smoker Exam Narrative: GENERAL: Well appearing, well-nourished, non-toxic, in no acute distress. HEAD: Normocephalic, atraumatic. RESPIRATORY: Airway patent, respirations nonlabored. Clear to auscultation bilaterally, no rales, rhonchi, wheezing. CARDIOVASCULAR: Regular rate and rhythm without murmurs, rubs, or gallops. ABDOMINAL: Soft, mild tenderness throughout lower abdomen with palpation, no rebound. Nondistended. Normoactive BS. MUSCULOSKELETAL: Paraplegic, no voluntary movement of lower extremities. Atrophy of BLE. SKIN: Warm, dry, normal color. NEURO: A&O X3. Speech clear. Cranial nerves II-XII grossly intact. PSYCHIATRIC: Appropriate mood and affect. Normal interaction. Course Vital Signs Vital signs: Vital Signs Temperature 98.2 F 11/08/23 11:22 Pulse Rate 96 11/08/23 11:22 Respiratory Rate 22 H 11/08/23 11:22 Blood Pressure 173/94 H 11/08/23 11:22 Pulse Oximetry 100 11/08/23 11:22 Oxygen Delivery Room Air 11/08/23 11:22 Temperature 98.2 F 11/08/23 11:22 Pulse Rate 96 11/08/23 11:22 Respiratory Rate 22 H 11/08/23 11:22 Blood Pressure 173/94 H 11/08/23 11:22 Pulse Oximetry 100 11/08/23 11:22 Oxygen Delivery Room Air 11/08/23 11:22 MDM - Nausea/Vomiting/Diarrhea MDM Narrative Medical decision making narrative: Patient with history of paraplegia presented to ED with several hour onset of nausea, vomiting, unable to keep down food or drink. Vital signs are stable upon arrival. Patient in no acute distress. Fluids and Zofran ordered. Patient's first IV unfortunately blew. She was hesitant to receive another IV, stating she just wanted to go home. Did allow nurse to replace IV, received 1L fluid bolus and 4mg Zofran. Blood work was sent to lab, but unfortunately hemolyzed and needed to be redrawn. Patient refused to have any further sticks, stating she wants to g
[2023-11-08 12:30] VITALS: BP 170/94; PULSE 93; RESP 16; TEMP 36.7; O2SAT 100
[2023-11-08 12:35] LABS: Appearance Urine Turbid (Clear); Bacteria Urine 4+ /hpf; Bilirubin Urine Negative (Negative); Blood Urine 2+ (Negative); Color Urine Yellow (Yellow); Glucose Urine UA Negative (Negative); Ketones Urine 2+ mg/dL (Negative); Leukocyte Esterase Ur 2+ LEU/UL (Negative); Need Manual Microscopic Reviewed; Nitrate Urine Negative (Negative); Protein Urine 1+ mg/dL (Negative); RBC Urine 21-50 /hpf (0-2); Specific Grav Ur 1.015 (1.001-1.035); Squamous Epithelial Cell Urine Occasional /hpf (Few); Urobilinogen Urine 0.2 mg/dL (<2.0); pH Urine >=9.0 (5.0-9.0)
--- NOTE | 2023-11-08 12:37 | PC.NURSE ---
Pt refusing to have blood redrawn, states I just want to go home . Anila STARKEY informed.
--- NOTE | 2023-11-08 12:39 | PC.NURSE ---
Pt states she is unable to ride in a car due to her paralysis & decub. Address confirmed
[2023-11-08 12:40] LABS: Add Urine Microscopic? YES
[2023-11-08 12:45] VITALS: PULSE 101; RESP 15
[2023-11-08 13:08] LABS: Influenza A QL RT-PCR Negative (Negative); Influenza B QL RT-PCR Negative (Negative); RSV RNA, RT-PCR Negative (Negative); SARS-CoV-2 RNA PCR Negative (Negative)
[2023-11-08 13:09] LABS: Amphetamine Screen Urine Negative (Negative); Barbiturate Screen Urine Negative (Negative); Benzodiazepines Screen Urine Negative (Negative); Cannabinoid Screen Urine Positive (Negative); Cocaine Screen Urine Negative (Negative); Methadone Screen Urine Negative (Negative); Opiate Screen Urine Positive (Negative); Phencyclidine Screen Urine Negative (Negative)
--- NOTE | 2023-11-08 13:39 | PC.NURSE ---
Pt incontinent of soft brown stool. Sera care given, clean diaper applied.
--- NOTE | 2023-11-08 14:08 | PC.NURSE ---
Pt incontinent of stool. Sera care given, soft brown stool. EMS here to take pt home.
== END 2023-11-08 14:15 | disposition left against medical advice (07) ==
PROVIDERS: Emergency Provider Physician Assistant; PCP Family Medicine
DX: R11.2 Nausea with vomiting, unspecified (principal); R82.998 Other abnormal findings in urine; E11.9 Type 2 diabetes mellitus without complications; G82.20 Paraplegia, unspecified; Z95.1 Presence of aortocoronary bypass graft; Z79.4 Long term (current) use of insulin
CPT/HCPCS: 36415; 80307; 81001; 87077; 87086; 87186; 87637; 96374; 99284; J2405; J7030

== ENCOUNTER 2023-11-10 11:40 | Inpatient (IN) | payer OTHER, BC, MEDICAID, SELFPAY ==
--- NOTE | ~2023-11-10 | CT_ITS ---
EXAMINATION: CT abdomen pelvis w con DATE: 11/10/2023 16:02 INDICATION: History of paralysis. Fever and nausea. TECHNIQUE: Computed tomography (CT) of the abdomen and pelvis was performed with 100 cc Omnipaque 350 intravenous contrast. The dose-length product was 415.13 mGy-cm. Automated exposure control and iter ative reconstruction technique were employed. COMPARISON: No prior studies for comparison. FINDINGS: Lung bases unremarkable. Heart size normal. No significant pleural or pericardial effusion. There is phlegmonous change in the presacral space as well as posterior to the sacrum with associate d soft tissue gas. Findings suspicious for infection, although no drainable fluid collection is ident ified. Marcos catheter present in the bladder. The internal iliac arteries appear to be at least parti ally thrombosed. The liver, spleen, pancreas, adrenal glands are unremarkable. There is segmental atrophy of the right kidney. There is diffuse atrophy of the left kidney with heterogeneous hypoperfusion. Cannot exclude pyelonephritis. No significant hydronephrosis. No lymphadenopathy. There is mild segmental thickenin g of the sigmoid colon, suspicious for colitis. There is scoliosis. IMPRESSION: 1. Moderate phlegmonous changes present in the presacral/perirectal location as well as posterior to the sacrum. There is associated soft tissue gas posterior to the sacrum. Findings suspicious for infe ction, although no drainable fluid collection identified. 2: Mild segmental thickening, suspicious for colitis. 3: Heterogeneous geographic hypoperfusion of an atrophic left kidney. Consider pyelonephritis in the appropriate clinical setting. Reviewed, dictated and finalized at location A. IMPRESSION: 1. Moderate phlegmonous changes present in the presacral/perirectal location as well as posterior to the sacrum. There is associated soft tissue gas posterior to the sacrum. Findings suspicious for infection, although no drainable fluid collection identified. 2: Mild segmental thickening, suspicious for colitis. 3: Heterogeneous geographic hypoperfusion of an atrophic left kidney. Consider pyelonephritis in the appropriate clinical setting.
[2023-11-10 11:40] VITALS: BP 173/93; PULSE 87; RESP 18; TEMP 37.3; O2SAT 100
--- NOTE | 2023-11-10 13:30 | PC.NURSE ---
This RN was passing by patient room where curtain was pulled and noted a foul odor, came to help clean pt of stool. Pt was repositioned and trash and linen changed by this RN. Pt states Get my paperwork. Now. I have been here for over 2 hours and not a single person has done a thing to help me. This RN states Your nurse just helped you get changed and repositioned. We are attempting to help you as best we can. Our ER is busy, we apologize about the wait time. The patient then began to yell profanities, states Smart ass, I am going to call administration and report you are a terrible hospital and no help to anyone. Now get me my papers so I can go to a hospital where they actually see their patients and help them. Mara been sick for two days. This RN states I am happy to get the recharger for you to talk to. Pt then states Get me the administration, too! Pt continued to yell profanities and would not remain calm. canvass manager Charli notified.
--- NOTE | 2023-11-10 13:32 | PC.NURSE ---
Upon arrival to the ED patient was complaining of nausea and needing repositioned. patient repositioned and linens changed and bowel movement cleaned up. patient stated that she needed a bath. patient positioned comfortably and explained plan of care for patient. patient denied questions and verbalized understanding
--- NOTE | 2023-11-10 13:34 | PC.NURSE ---
Patient called out multiple times, available staff- nurses, techs, responded to the room and patient stated she only wanted her nurse. patient requesting ice water because very thirsty - this RN explained that since she was vomiting she couldn't have anything to eat or drink. patient continued to ask for water, ice chips given. patient requesting to be turned. patient repositioned and she yelled at this RN and the tech didn't know what we were doing and if we can't reposition her properly to just turn her to the other side. patient began yelling profanities at this RN and another RN who were attempting to help. When this RN explained that i had to transport another patient and i would be back as soon as I got back, she stated that I needed to send her to a hospital that had more time for her, Preferably [facility] . Patient states she wants to sign out of the hospital and wants to just go home because she's Deathly ill
--- NOTE | 2023-11-10 14:07 | ED.NAVMDI ---
HPI - Nausea/Vomiting/Diarrhea General Chief complaint: Nausea/Vomiting/Diarrhea Stated complaint: N/V Time Seen by Provider: 11/10/23 13:20 History of Present Illness HPI Narrative: Patient is a 43 year old female with history of paraplegia after a aortic bypass due to aortic thrombosis, chronic indwelling Marcos catheter, chronic bedsores here today with generalized fatigue and nausea and vomiting. She states that the symptoms began feeling unwell yesterday. She describes feeling nauseous, vomiting with some generalized abdominal discomfort. She has had multiple episodes of loose stool but would not describe these as diarrhea. She has been feeling flushed, has had a low-grade fever both here and at home but has not had a temperature over 100.4? F. Related Data Home Medications Medication Instructions Recorded Confirmed insulin glargine 100 unit/mL (3 unit subcut 07/28/22 07/28/22 mL) subcutaneous pen (Lantus Solostar U-100 Insulin) insulin lispro 100 unit/mL subcut 07/28/22 subcutaneous pen (Humalog KwikPen (U-100) Insulin) Allergies Allergy/AdvReac Type Severity Reaction Status Date / Time azithromycin Allergy Unknown Hives Verified 11/08/23 13:27 amoxicillin AdvReac Unknown Verified 11/08/23 13:27 [facility] Past Medical History Medical History Diabetes mellitus Spinal cord stroke Surgical History Surgical History History of aorto-femoral bypass Social History Social History Smoking status: Never smoker Exam Narrative: GENERAL: Well-appearing, well-nourished, and in no acute distress. HEAD: Normocephalic, atraumatic. EYES: PERRLA and EOMI. ENT: Nares clear. Mucous membranes moist. NECK: Supple. CHEST: Clear to auscultation. No respiratory distress. HEART: Regular rate and rhythm. Normal peripheral pulses. ABDOMEN: Soft, Mild diffuse tenderness, nondistended. EXTREMITIES: Normal range of motion. No edema. SKIN: Warm, dry, no rash. 4 x 5 cm Stage 3-4 sacral ulcer present with small amount of active drainage, no surrounding erythema NEURO: No focal deficits. Alert and oriented x3. PSYCH: Normal mood and affect. Course Course Emergency Course: Chart review performed. Patient is here with nausea, vomiting and low grade fever. Triage vitals show HTN, otherwise normal. Patient was seen here yesterday. She had a UA that was concerning for possible UTI. they attempted to perform labs however her IV blew and her labs hemolyzed and she signed out AMA instead of getting additional evaluations. She was discharged on Bactrim. Patient seen evaluated, she is a comfortable-appearing, warm to touch, concern for possible infectious process. She does have a very deep sacral ulcer which she notes has been present for quite some time. I am concerned that this could be a source of her infection. Will additionally do septic workup. Morphine and Zofran ordered. Will additionally do some IV fluids. Lab work and imaging reviewed. White blood cell count of 12, hemoglobin 11.2. Electrolytes grossly normal with normal renal function. UA consistent with UTI. CT shows moderate phlegmonous changes in the presacral/perirectal location as well as posterior to the sacrum. This is associated with some soft tissue gas posterior to the sacrum. Findings suspicious for infection although no drainable fluid collection is identified. She does have some mild segmental thickening suspicious for colitis. She has heterogenously geographic hypoperfusion of an atrophic left kidney consider pyelonephritis. She does have a UTI on lab work. Will cover her with antibiotics with UTI and possible infected sacral ulcer. Will start cefepime and vancomycin. After reviewing patient's urine culture, cefepime was discontinued. Patient re
--- NOTE | 2023-11-10 14:51 | PC.NURSE ---
While drawing labs, ERP was speaking with the patient, patient asked if she could drink something to which it was explained that they wanted to do imaging to make note of how deep the wound is on her coccyx, patient started to decline. ERP gave the explanation to why she wanted to get imaging done, that she wanted the patient to be NPO in case surgery wants the wound debrided and pt agreed to it. After the dr walked out the patient asked me to give her a soda, this RN reiterated the plan for not drinking anything and waiting for imaging. patient began yelling and telling this RN The dr told me I could drink, if you're not going to give me a soda you can just fucking give me my piss bag and ill drink that and that she doesn't need imaging because she's seeing a wound doctor soon this RN stated that I could let the dr know that she doesn't want to do the imaging now and the patient stated is that going to tell you whats making me feel so sick? This RN explained that getting imaging done can help find and locate the source of infection if thats what she has going on. patient agreed and stated when will my CT be
[2023-11-10 14:57] LABS: Basophils Absolute Auto 0.1 K/mm3 (0.0-0.1); Basophils Percent Auto 0.4 % (0.2-1.2); Eosinophils Percent Auto 0.3 % (0-4.4); Hematocrit 33.7 % (37.0-47.0); Hemoglobin 11.2 g/dL (12.0-15.0); Immature Granulocyte Absolute 0.05 K/mm3 (0.00-0.031); Immature Granulocyte Percent A 0.4 % (0-0.5); Lymphocytes Absolute Auto 1.98 K/mm3 (0.9-3.2); Lymphocytes Percent Auto 16.5 % (18.3-44.2); Mean Corpuscular HGB Conc 33.2 g/dl (32-36); Mean Corpuscular Hemoglobin 28.3 pg (26-34); Mean Corpuscular Volume 85.1 fl (80-100); Mean Platelet Volume 9.7 fl (7.4-10.4); Monocytes Absolute Auto 0.6 K/mm3 (0.1-0.6); Monocytes Percent Auto 4.6 % (2.6-8.5); Neutrophils Absolute Auto 9.3 K/mm3 (1.3-6.7); Neutrophils Percent Auto 77.8 % (45.5-73.1); Platelet Count Result 266 k/mm3 (150-375); Red Blood Count 3.96 M/mm3 (4.2-5.4); Red Cell Distribution Width 15.9 % (11.5-14.5)
[2023-11-10] MEDS: ONDANSETRON INJ 4 MG/2 ML VIAL IV PUSH (14:59)
[2023-11-10] MEDS: MORPHINE SULFATE (*CRX) 4 MG/ML INJ IV PUSH ×2 (14:59→18:37)
[2023-11-10 15:07] VITALS: BP 177/90; PULSE 84; RESP 18; O2SAT 99
[2023-11-10 15:08] LABS: Alanine Aminotransferase 14 U/L (6-35); Albumin Level 4.1 g/dL (3.5-5.1); Alkaline Phosphatase 92 U/L (38-126); Anion Gap 11 mmol/L (4-12); Aspartate Amino Transferase 15 U/L (14-36); Bilirubin,Total 0.7 mg/dL (0.2-1.3); Blood Urea Nitrogen 12 mg/dL (7-17); Carbon Dioxide 17 mmol/L (22-30); Chloride 108 mmol/L (98-107); Estimated CRCL calculation 129 ml/min; Estimated Glomerular Filt Rate > 60; Glucose 146 mg/dL (65-110); Lipase 62 U/L (23-300); Potassium 3.4 mmol/L (3.4-5.0); Sodium 136 mmol/L (137-145)
[2023-11-10 16:13] LABS: Add Urine Microscopic? YES; Appearance Urine Turbid (Clear); Bacteria Urine 4+ /hpf; Bilirubin Urine Negative (Negative); Blood Urine 1+ (Negative); Color Urine Yellow (Yellow); Glucose Urine UA Negative (Negative); Ketones Urine 1+ mg/dL (Negative); Leukocyte Esterase Ur 1+ LEU/UL (Negative); Need Manual Microscopic Reviewed; Nitrate Urine Negative (Negative); Non Pathogenic Casts >20; Protein Urine Trace mg/dL (Negative); Specific Grav Ur 1.015 (1.001-1.035); Squamous Epithelial Cell Urine Moderate /hpf (Few); WBC Urine 51-100 /hpf (0-3); pH Urine 7.5 (5.0-9.0)
[2023-11-10] MEDS: metroNIDAZOLE 500 MG/ISO 100ML 500 MG/100 ML BAG 100 MG IVPB (18:38)
[2023-11-10] MEDS: SODIUM CHLORIDE 0.9% IV 1,000 ML 999 ML IV CONT (18:38)
[2023-11-10 19:27] LABS: Lactic Acid Reflex 0.7 mmol/L (0.7-2.0)
--- NOTE | 2023-11-10 19:42 | PC.NURSE ---
patient refused to be hooked up to monitors or get vital signs taken- stating that If they keep me I will just get vitals when i get to another room - i don't feel like it right now
[2023-11-10 19:49] LABS: Influenza A QL RT-PCR Negative (Negative); Influenza B QL RT-PCR Negative (Negative); RSV RNA, RT-PCR Negative (Negative); SARS-CoV-2 RNA PCR Negative (Negative)
[2023-11-10] MEDS: VANCOMYCIN 1,500 MG/NS 500 ML 1,500 MG/500 ML BAG 250 MG IVPB (20:07)
--- NOTE | 2023-11-10 20:17 | ADMGEN ---
This patient, Jill Villa, was admitted to Medical Room 348-01. Patient/family oriented to hospital policies and general routines including ID bracelet, bed and alarms, visiting hours, pain management, procedures, bathroom and other care routines, personal items, smoking policy, room service/diet, and visiting hours. Information on how to activate the Rapid Response Team has been discussed. Patient/Family are encouraged to report perceived risks to care and to ask questions if they do not understand what they are told or what they should do.
[2023-11-10 21:55] VITALS: BP 176/86; PULSE 82; RESP 21; TEMP 35.9; O2SAT 100
--- NOTE | 2023-11-10 22:07 | PM.IMHP ---
H&P: HPI History of Present Illness Date/Time: 11/10/23 20:30 Chief Complaint: Nausea and vomiting. Narrative: This is a 43-year-old female with paraplegia following aortic bypass due to aortic thrombosis, type 1 diabetes mellitus, diabetic peripheral neuropathy, and hyperlipidemia who presented to the emergency department for evaluation of nausea and vomiting. The patient provides the following history. She has not been feeling well for a couple of days with a decreased appetite, nausea, and vomiting. She has generalized abdominal discomfort that she cannot really describe. Last night she began to feel flushed and reports having a low-grade fever. She has a chronic wound on her posterior which she states is smaller than it has been quite some time however she has noticed an increase in drainage and pain. She denies sinus congestion, sore throat, cough, hematemesis, back pain, and overt diarrhea though she reports soft stools. No sick contacts. She has not noticed a change in urine output or malodorous urine. Marcos catheter was exchanged within the last week or so. Of note she was seen emergency department 2 days ago with similar symptoms and a urine culture obtained at that time has since come back growing ESBL Klebsiella pneumoniae sensitive only to carbapenems. In the ED: She was afebrile on arrival with blood pressures in the 170s systolic. Labs were significant for WBC count of 12.0, hemoglobin 11.2, sodium 136, chloride 108, BUN 12, creatinine 0.60, lactic acid 1.0, glucose 146. Urine was positive for 1+ ketones, 1+ blood, 1+ leukocyte esterase, 11 to 20 RBC, 51 to 100 WBC, 4+ bacteria, greater than 20 casts, and moderate squamous cells. She tested negative for RSV, influenza, and COVID. CT of the abdomen and pelvis showed moderate phlegmonous changes in the presacral/perirectal location as well as posterior to the sacrum with associated soft tissue gas posterior to the sacrum though no drainable fluid collection was identified, mild segmental thickening suspicious for colitis and heterogeneous geographic hypoperfusion of atrophic left kidney which could be pyelonephritis in the appropriate clinical setting. She was given a dose of meropenem and vancomycin and she is being admitted in this setting for further treatment and evaluation. Review of Systems Review of Systems: 12 systems were reviewed and are negative except for as per HPI. [facility] Past Medical History Medical History (Updated 11/10/23 @ 22:22 by Marci Rogers PA-C) Aortic thrombus Clostridium difficile diarrhea Deep venous thrombosis Diabetic peripheral neuropathy Hyperlipidemia Neurogenic bladder Spinal cord stroke Type 1 diabetes mellitus Surgical History Surgical History History of aorto-femoral bypass Family History Family History Mother Acute myocardial infarction Diabetes mellitus Hypertension Father History of blood clots Social History Social History (Updated 11/10/23 @ 22:19 by Marci Rogers PA-C) Social History: Surrogate medical decision maker: Ml Aguilar, mother. Code status: Full code. Smoking status: Former smoker Alcohol intake: never Substance use: former Substance use type: crack/cocaine Do You Feel Safe in your Home?: Yes Lack of Transportation: No Lack of Food: Never True Current Housing: I Have Housing Concerned About Future Housing: No Difficulty Paying Gas/Electric Bills: No Difficulty Paying for Meds: No Currently Unemployed: No Education: High School Diploma/GED Difficulty w/ Childcare or Family Care: No Additional living arrangements comments: Lives with spouse and children in [place]. Spiritual care concerns: No Meds Home Medications and Allergies Home Medications Medication Instructions Recorded Confirmed Type insulin glargine 100 unit/mL (3 44 unit
[2023-11-10] MEDS: MEROPENEM 1 GM/NS 100 ML 1 GM/100 ML BAG IVPB (23:04)
[2023-11-10] MEDS: COLLAGENASE OINT 30 GM TUBE 1 APPLIC TOPICAL (23:05)
[2023-11-10] MEDS: HYDROcodone/acetaminophen (*CRX) 10-325 MG TABLET 1 TAB PO (23:05)
[2023-11-10] MEDS: GABAPENTIN 300 MG CAPSULE 600 MG PO (23:05)
[2023-11-11] MEDS: ONDANSETRON INJ 4 MG/2 ML VIAL IV PUSH (02:01)
[2023-11-11] MEDS: MEROPENEM 1 GM/NS 100 ML 1 GM/100 ML BAG IVPB ×3 (05:46→21:03)
[2023-11-11] MEDS: HYDROcodone/acetaminophen (*CRX) 10-325 MG TABLET 1 TAB PO ×5 (05:46→22:13)
[2023-11-11] MEDS: GABAPENTIN 300 MG CAPSULE 600 MG PO ×3 (05:46→21:03)
[2023-11-11 06:00] VITALS: BP 145/46; PULSE 88; RESP 20; TEMP 36.1; O2SAT 99
[2023-11-11 06:08] LABS: Hematocrit 32.9 % (37.0-47.0); Hemoglobin 10.6 g/dL (12.0-15.0); Mean Corpuscular HGB Conc 32.2 g/dl (32-36); Mean Corpuscular Hemoglobin 28.7 pg (26-34); Mean Corpuscular Volume 89.2 fl (80-100); Mean Platelet Volume 9.6 fl (7.4-10.4); Platelet Count Result 245 k/mm3 (150-375); Red Blood Count 3.69 M/mm3 (4.2-5.4); Red Cell Distribution Width 15.9 % (11.5-14.5); White Blood Count 8.2 K/mm3 (4.5-10.0)
[2023-11-11 06:21] LABS: Anion Gap 7 mmol/L (4-12); Blood Urea Nitrogen 10 mg/dL (7-17); Calcium 9.7 mg/dL (8.4-10.2); Carbon Dioxide 20 mmol/L (22-30); Chloride 109 mmol/L (98-107); Estimated CRCL calculation 129 ml/min; Estimated Glomerular Filt Rate > 60; Glucose 104 mg/dL (65-110); Magnesium 1.8 mg/dL (1.6-2.3); Potassium 3.3 mmol/L (3.4-5.0); Sodium 136 mmol/L (137-145)
[2023-11-11 08:29] LABS: Glucose Point of Care 121 mg/dl (65-105)
[2023-11-11 09:00] VITALS: O2SAT 100
[2023-11-11] MEDS: INSULIN ASPART (*BKC) 100 UNITS/ML 10 UNITS SUB-Q ×3 (09:07→17:16)
[2023-11-11] MEDS: VANCOMYCIN 1,500 MG/NS 500 ML 1,500 MG/500 ML BAG 250 MG IVPB ×2 (09:11→21:03)
[2023-11-11] MEDS: ENOXAPARIN 40 MG/0.4 ML SYRINGE SUB-Q (09:11)
[2023-11-11] MEDS: POTASSIUM CHLORIDE 20 MEQ ER TABLET 40 MEQ PO (09:29)
--- NOTE | 2023-11-11 10:31 | PM.CNGS ---
Assessment and Plan Assessment and plan (1) Pressure ulcer of sacral region: Qualifiers: Pressure injury stage: unspecified pressure injury stage Qualified Code(s): L89.159 - Pressure ulcer of sacral region, unspecified stage Code(s): L89.159 - Pressure ulcer of sacral region, unspecified stage Status: Acute Assessment and Plan: Stage III, no drainable areas, necrotic tissue, will ask Wound Care to see patient regarding possible Dankins' solution, continue enzymatic debridement with Santyl for now, continue antibiotics (2) Complicated urinary tract infection: Code(s): N39.0 - Urinary tract infection, site not specified Status: Acute Assessment and Plan: continue antibiotics (3) Type 1 diabetes mellitus: Code(s): E10.9 - Type 1 diabetes mellitus without complications Status: Acute Assessment and Plan: tight blood sugar control given infection History of Present Illness Consult details Consult date: 11/11/23 Reason for consult: wound care Requesting physician: Cornel Mae MD Narrative: The patient is a 43-year-old female with a history paraplegia following aortic bypass surgery presenting with weakness, fevers, nausea, poor appetite over the last few days. The patient reports she has a chronic sacral wound that has been draining more and is more tender. The patient reports the has actually been healing prior to this episode. Workup in the emergency department was significant for UTI and likely infected sacral wound. We were consulted for management sacral wound. The patient reports since admission she feels much better and normal this point. Review of Systems Review of Systems: All systems reviewed & are unremarkable except as noted in HPI and below PMFSH Past Medical History Medical History Aortic thrombus Clostridium difficile diarrhea Deep venous thrombosis Diabetic peripheral neuropathy Hyperlipidemia Neurogenic bladder Spinal cord stroke Type 1 diabetes mellitus Surgical History Surgical History History of aorto-femoral bypass Family History Family History Mother Acute myocardial infarction Diabetes mellitus Hypertension Father History of blood clots Social History Social History Social History: Surrogate medical decision maker: Ml Leonedi, mother. Code status: Full code. Smoking status: Former smoker Alcohol intake: never Substance use: former Substance use type: crack/cocaine Do You Feel Safe in your Home?: Yes Lack of Transportation: No Lack of Food: Never True Current Housing: I Have Housing Concerned About Future Housing: No Difficulty Paying Gas/Electric Bills: No Difficulty Paying for Meds: No Currently Unemployed: No Education: High School Diploma/GED Difficulty w/ Childcare or Family Care: No Additional living arrangements comments: Lives with spouse and children in [place]. Spiritual care concerns: No Meds Home Medications and Allergies Home Medications Medication Instructions Recorded Confirmed Type insulin glargine 100 unit/mL (3 44 unit subcut HS 07/28/22 11/10/23 History mL) subcutaneous pen (Lantus Solostar U-100 Insulin) insulin lispro 100 unit/mL 10 unit subcut AC 07/28/22 11/10/23 History subcutaneous pen (Humalog KwikPen (U-100) Insulin) atorvastatin 20 mg tablet 20 mg PO HS 11/10/23 11/10/23 History collagenase clostridium histo. 250 1 applic topical BID 11/10/23 11/10/23 History unit/gram topical ointment (Santyl) gabapentin 600 mg tablet 600 mg PO TID 11/10/23 11/10/23 History hydrocodone 10 mg-acetaminophen 1 tablet PO Q4H PRN Pain (Scale 11/10/23 11/10/23 History 325 mg tablet Score 4-6) trazodone 100 mg tablet 100 mg PO
[2023-11-11 11:17] LABS: Hemoglobin A1C 5.7 % (<5.7)
[2023-11-11 12:11] LABS: Glucose Point of Care 97 mg/dl (65-105)
[2023-11-11] MEDS: COLLAGENASE OINT 30 GM TUBE 1 APPLIC TOPICAL ×2 (13:00→21:04)
--- NOTE | 2023-11-11 13:14 | PM.IMPN ---
Progress Note: A&P Assessment and Plan (1) Complicated urinary tract infection: Code(s): N39.0 - Urinary tract infection, site not specified Status: Acute Assessment and Plan: Patient presents with nausea and vomiting. UPT negative. ED visit on 10/02/2023 and urine culture at that time grew Enterobacter cloacae sensitive to meropenem She was seen in the ED on 11/08/23 and had a positive UA with UCx growing Klebsiella pneumoniae that was snell resistant. UA was consistent with UTI on this admission as well. Urine cultures and blood cultures collected. CT scan shows heterogeneous geographic hypoperfusion the atrophic left kidney concerning for pyelonephritis. She was started on vancomycin and meropenem. WBC normal. No fevers. Follow-up on culture results. (2) Pressure ulcer of sacral region: Qualifiers: Pressure injury stage: unspecified pressure injury stage Qualified Code(s): L89.159 - Pressure ulcer of sacral region, unspecified stage Code(s): L89.159 - Pressure ulcer of sacral region, unspecified stage Status: Acute Assessment and Plan: CT scan of the abdomen and pelvis showed moderate phlegmonous changes present in the presacral/perirectal location as well as posterior to the sacrum. No obvious drainable fluid collection identified. General surgery consulted and appreciate their input. Wound care consult. Wound cultures obtained. Continue dressing changes. Continue current IV antibiotics (3) Type 1 diabetes mellitus: Code(s): E10.9 - Type 1 diabetes mellitus without complications Status: Acute Assessment and Plan: The patient's blood glucose was reviewed on 11/10 Glucose remains well controlled. Continue AccuCheks covering with sliding scale. Hypoglycemia protocol available as needed. Continue to follow (4) Elevated blood pressure reading: Code(s): R03.0 - Elevated blood-pressure reading, without diagnosis of hypertension Status: Acute Assessment and Plan: Patient with elevated blood pressure on admission. It has improved and may be related to pain. Continue to follow. 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 Frequent turning. Routine skin care. Plan DVT prophylaxis - Lovenox Code status -full Subjective Date/time seen: 11/11/23 13:14 Interval history: 43yo female with paraplegia following aortic bypass due to aortic thrombosis, DM Type 1 with diabetic peripheral neuropathy and HLD here for nausea and vomiting.? She feels better and is requesting discharge. She is having left sided back pain. Has a chronic Marcos. Does not have a hx of chronic UTIs. Hx of hepatic and renal failure requiring HD when in [facility]. ALso with a liver lesion newly discovered but she never followed up Exam Narrative: AF 97.0 145/46 88 20 99% ra Gen - NARD Chest - CTA bilaterally, nml RR CV - RRR S1/S2 Abd - Soft, NT/ND, Positive BS - Marcos secured draining clear yellow urine Ext - No pedal edema Neuro - Alert and oriented. Paraplegia Psych - tearful at times Skin - Warm and dry. Sacral decubitus ulcer not visualized today Objective Data Vital Signs Vital Signs: Vital Signs - 24 hr 11/10/23 15:07 11/10/23 20:36 11/10/23 21:55 Temperature 96.6 F L Pulse Rate 84 82 Respiratory Rate 18 21 H Blood Pressure 177/90 H 176/86 H Pulse Oximetry 99 100 Oxygen Delivery Room Air 11/11/23 06:00 Temperature 97.0 F L Pulse Rate 88 Respiratory Rate 20 Blood Pressure 145/46 H Pulse Oximetry 99 Oxygen Delivery Intake/Output Intake/Output: Intake & Output 11/08/23 11/09/23 11/10/23 11/11/23 23:59 23:59 23:59 23:59 Intake Total 1600 1040 Output Total 1100 Balance 1600 -60 Meds/Results Medications: Active Medications Generic Nam
[2023-11-11 14:05] VITALS: BP 157/75; PULSE 72; RESP 16; TEMP 36.2; O2SAT 100
[2023-11-11 16:52] LABS: Glucose Point of Care 94 mg/dl (65-105)
[2023-11-11 19:53] VITALS: O2SAT 98
[2023-11-11 20:52] VITALS: BP 178/77; PULSE 85; RESP 20; TEMP 36.2; O2SAT 100
[2023-11-11] MEDS: traZODone HCL 50 MG TABLET 100 MG PO (21:03)
[2023-11-11] MEDS: ATORVASTATIN 20 MG TABLET PO (21:04)
[2023-11-11] MEDS: INSULIN GLARGINE (*BKC) 100 UNITS/ML 44 UNITS SUB-Q (21:15)
[2023-11-12 04:59] LABS: Glucose Point of Care 126 mg/dl (65-105)
[2023-11-12] MEDS: GABAPENTIN 300 MG CAPSULE 600 MG PO ×3 (05:18→22:13)
[2023-11-12] MEDS: MEROPENEM 1 GM/NS 100 ML 1 GM/100 ML BAG IVPB ×3 (05:18→22:13)
[2023-11-12] MEDS: HYDROcodone/acetaminophen (*CRX) 10-325 MG TABLET 1 TAB PO ×5 (05:18→22:34)
[2023-11-12 06:00] VITALS: BP 180/85; PULSE 88; RESP 20; TEMP 36.1; O2SAT 100
[2023-11-12 07:10] LABS: Basophils Absolute Auto 0.1 K/mm3 (0.0-0.1); Basophils Percent Auto 0.8 % (0.2-1.2); Eosinophils Absolute Auto 0.3 K/mm3 (0-0.3); Eosinophils Percent Auto 3.8 % (0-4.4); Hemoglobin 10.6 g/dL (12.0-15.0); Immature Granulocyte Absolute 0.03 K/mm3 (0.00-0.031); Immature Granulocyte Percent A 0.4 % (0-0.5); Lymphocytes Absolute Auto 2.47 K/mm3 (0.9-3.2); Lymphocytes Percent Auto 33.4 % (18.3-44.2); Mean Corpuscular HGB Conc 32.1 g/dl (32-36); Mean Corpuscular Hemoglobin 28.6 pg (26-34); Mean Corpuscular Volume 89.2 fl (80-100); Mean Platelet Volume 9.8 fl (7.4-10.4); Monocytes Absolute Auto 0.5 K/mm3 (0.1-0.6); Monocytes Percent Auto 6.5 % (2.6-8.5); Neutrophils Absolute Auto 4.1 K/mm3 (1.3-6.7); Neutrophils Percent Auto 55.1 % (45.5-73.1); Platelet Count Result 236 k/mm3 (150-375); Red Cell Distribution Width 16.1 % (11.5-14.5); White Blood Count 7.4 K/mm3 (4.5-10.0)
[2023-11-12 07:23] LABS: Vancomycin Trough 20.7 ug/mL (10.0-20.0)
[2023-11-12 07:24] LABS: Albumin Level 3.5 g/dL (3.5-5.1); Anion Gap 4 mmol/L (4-12); Blood Urea Nitrogen 17 mg/dL (7-17); Calcium 9.3 mg/dL (8.4-10.2); Carbon Dioxide 21 mmol/L (22-30); Chloride 111 mmol/L (98-107); Estimated CRCL calculation 112 ml/min; Estimated Glomerular Filt Rate > 60; Glucose 135 mg/dL (65-110); Magnesium 1.9 mg/dL (1.6-2.3); Potassium 3.9 mmol/L (3.4-5.0); Sodium 136 mmol/L (137-145)
[2023-11-12 08:34] LABS: Glucose Point of Care 128 mg/dl (65-105)
[2023-11-12] MEDS: ENOXAPARIN 40 MG/0.4 ML SYRINGE SUB-Q (08:57)
[2023-11-12] MEDS: COLLAGENASE OINT 30 GM TUBE 1 APPLIC TOPICAL (08:57)
[2023-11-12] MEDS: INSULIN ASPART (*BKC) 100 UNITS/ML 10 UNITS SUB-Q ×3 (09:01→17:20)
[2023-11-12 12:39] LABS: Glucose Point of Care 130 mg/dl (65-105)
[2023-11-12 13:57] VITALS: BP 157/76; PULSE 86; RESP 18; TEMP 36.3; O2SAT 100
[2023-11-12 14:04] VITALS: BMI 22.6
[2023-11-12] MEDS: VANCOMYCIN 1,500 MG/NS 500 ML 1,500 MG/500 ML BAG 250 MG IVPB (15:44)
[2023-11-12] MEDS: SOD HYPOCHLORITE 1/4 STRENGTH 473 ML 1 APPLIC TOPICAL ×2 (15:45→22:14)
--- NOTE | 2023-11-12 15:58 | PM.IMPN ---
Progress Note: A&P Assessment and Plan (1) Complicated urinary tract infection: Code(s): N39.0 - Urinary tract infection, site not specified Status: Acute Assessment and Plan: Patient presents with nausea and vomiting. UPT negative. Patient has spinal cord injury and probably with neurogenic bladder requiring chronic Marcos ED visit on 10/02/23 with UCx that grew Enterobacter cloacae sensitive to meropenem ED on 11/08/23 with UCx growing Klebsiella pneumoniae that was snell resistant. UA was consistent with UTI on this admission as well. UCx (11/09) - GNB BCx (11/09) NGTD CT scan shows heterogeneous geographic hypoperfusion the atrophic left kidney concerning for pyelonephritis. She was started on vancomycin and meropenem. WBC remains normal. No fevers. Marcos has been changed out since admission Follow-up on culture results. Continue current abx (2) Pressure ulcer of sacral region: Qualifiers: Pressure injury stage: unspecified pressure injury stage Qualified Code(s): L89.159 - Pressure ulcer of sacral region, unspecified stage Code(s): L89.159 - Pressure ulcer of sacral region, unspecified stage Status: Acute Assessment and Plan: CT scan of the abdomen and pelvis showed moderate phlegmonous changes present in the presacral/perirectal location as well as posterior to the sacrum. No obvious drainable fluid collection identified. General surgery consulted and appreciate their input. Wound care consulted. Wound cultures obtained and growing Klebsiella pneumoniae. Continue dressing changes. Continue current IV antibiotics (3) Type 1 diabetes mellitus: Code(s): E10.9 - Type 1 diabetes mellitus without complications Status: Acute Assessment and Plan: A1c 5.7. The patient's blood glucose was reviewed on 11/11 Glucose remains almost too well controlled. Continue AccuCheks covering with sliding scale. Hypoglycemia protocol available as needed. Continue to follow. Will back off on lantus dose. (4) Elevated blood pressure reading: Code(s): R03.0 - Elevated blood-pressure reading, without diagnosis of hypertension Status: Acute Assessment and Plan: Patient with elevated blood pressure on admission. It has persistent and may be related to pain. Prior BP have been mostly okay. Continue to follow for now. 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 She was having paresthesias to her feet and workup revealed aortic disease requiring surgery. She had surgery in [place] in May 2023 that was complicated with spinal cord stroke resulting in paraplegia and a long complicated course. She developed a sacral decubitus ulcer with osteomyelitis requiring moth exterminator IV abx via PICC line. Also with possible neurogenic bladder but has the sensation to void and does not appear to have had urodynamics Frequent turning. Routine skin care. Plan DVT prophylaxis - Lovenox Code status - full Subjective Date/time seen: 11/12/23 15:58 Interval history: 43yo female with paraplegia following aortic bypass due to aortic thrombosis, DM Type 1 with diabetic peripheral neuropathy and HLD here for nausea and vomiting.? Patient feels better. Eating okay. Has necrotic toes that have been improving and related to her initially aortic surgery in May. Exam Narrative: AF 97.3 157/76 86 18 100% ra Gen - NARD Chest - CTA bilaterally, nml RR CV - RRR S1/S2 Abd - Soft, NT/ND, Positive BS Back - no CVA tenderness - Marcos secured draining clear yellow urine Ext - No pedal edema Neuro - Alert and oriented. Paraplegia Psych - tearful at times Skin - Warm and dry. Multiple toes with necrotic tips Objective Data Vital Signs Vital Signs: Vital Signs - 24 hr 11/11/23 19:53 11/11/23 20:52 11/11/23 20:00
[2023-11-12 17:06] LABS: Glucose Point of Care 99 mg/dl (65-105)
--- NOTE | 2023-11-12 17:08 | PM.PNGS ---
Progress Note: A&P Assessment and Plan (1) UTI (urinary tract infection): Qualifiers: Encounter type: initial encounter Indwelling urinary catheter type: indwelling urethral catheter Urinary tract infection type: catheter-associated UTI Qualified Code(s): T83.511A - Infection and inflammatory reaction due to indwelling urethral catheter, initial encounter; N39.0 - Urinary tract infection, site not specified Code(s): N39.0 - Urinary tract infection, site not specified Status: Acute Assessment and Plan: local wound care c Dakins' solution, pressure off loading, will eventually need grafting Subjective Subjective Date/Time Seen: 11/12/23 17:08 Interval history: no acute issues, appreciate wound care evaluation Review of Systems Review of Systems: All systems reviewed & are unremarkable except as noted in HPI and below Exam Const: General: cooperative, comfortable and no acute distress Resp: Auscultation: clear to auscultation bilaterally Cardio: Rate: regular rate Rhythm: regular rhythm Back/Spine/Pelvis: Other: stage 3 sacral ulcer - clean, less drainage today Objective Data Vital Signs Vital Signs: Vital Signs - 24 hr 11/11/23 19:53 11/11/23 20:52 11/11/23 20:00 Temperature 36.2 C L Pulse Rate 85 Respiratory Rate 20 Blood Pressure 178/77 H Pulse Oximetry 98 100 Oxygen Delivery Room Air Room Air 11/12/23 06:00 11/12/23 09:00 11/12/23 13:57 Temperature 36.1 C L 36.3 C L Pulse Rate 88 86 Respiratory Rate 20 18 Blood Pressure 180/85 H 157/76 H Pulse Oximetry 100 100 Oxygen Delivery Room Air Intake/Output Intake/Output: Intake & Output 11/09/23 11/10/23 11/11/23 11/12/23 23:59 23:59 23:59 23:59 Intake Total 1600 2160 1580 Output Total 1450 2300 Balance 1600 710 -720 Meds/Results Medications: Active Medications Generic Name Dose Route Start Last Admin Trade Name Freq PRN Reason Stop Dose Admin Acetaminophen 650 mg 11/10/23 22:25 Acetaminophen 325 Mg Tablet PO Q6H PRN Mild Pain (1-3) or Fever Hydrocodone Bitart/Acetaminophen 1 tab 11/10/23 22:25 11/12/23 13:24 Hydrocodone/Acetaminophen (*Crx) 10-325 Mg Tablet PO 1 tab Q4H PRN Administration Pain (Scale Score 4-6) Atorvastatin Calcium 20 mg 11/11/23 21:00 11/11/23 21:04 Atorvastatin 20 Mg Tablet PO 20 mg HS SUSANNE Administration Dextrose 12.5 gm 11/10/23 22:25 Dextrose 50% 25 Gm/50 Ml Syringe IV PUSH PRN PRN Hypoglycemia Protocol Enoxaparin Sodium 40 mg 11/11/23 09:00 11/12/23 08:57 Enoxaparin 40 Mg/0.4 Ml Syringe SUB-Q 40 mg DAILY SUSANNE Administration Gabapentin 600 mg 11/10/23 22:00 11/12/23 13:24 Gabapentin 300 Mg Capsule PO 600 mg Q8HR SUSANNE Administration Glucagon 1 mg 11/10/23 22:25 Glucagon For Inj 1 Mg Vial IM PRN PRN Hypoglycemia Protocol Glucose 15 gm 11/10/23 22:25 Glucose Oral Gel 15 Gm Of Glucse In 37.5 Gm Tube PO PRN PRN Hypoglycemia Protocol Meropenem 1 gm in 100 mls @ 200 mls/hr 11/11/23 06:00 11/12/23 13:25 IVPB 200 mls/hr Q8H SUSANNE Administration Dextrose 1,000 mls @ 100 mls/hr 11/10/23 22:25 Dextrose 5% 1,000 Ml IVPB PRN PRN Hypoglycemia Protocol Vancomycin HCl 1,500 mg in 500 mls @ 250 mls/hr 11/12/23 15:00 11/12/23 15:44 Vancomycin 1,500 Mg/Ns 500 Ml IVPB 250 mls/hr Q18H SUSANNE Administration Insulin Aspart 10 units 11/11/23 08:00 11/12/23 12:40 Insulin Aspart (*Bkc) 100 Units/Ml SUB-Q 10 units TIDWM SUSANNE Administration Insulin Aspart 3 - 6 units 11/11/23 08:00 11/12/23 12:43 Insulin Aspart (*Bkc) 100 Units/Ml SUB-Q Not Given TIDWM SUSANNE Protocol Insulin Aspart 1 - 3 units 11/11/23 21:00 11/11/23 21:17 Insulin Aspart (*Bkc) 100 Units/Ml SUB-Q Not Given HS SUSANNE Protocol Insulin Glargine 36 units 11/12/23 21:00 Insulin Glargine (*Bkc) 100
[2023-11-12 22:00] VITALS: BP 167/84; PULSE 95; RESP 20; TEMP 36.1; O2SAT 100
[2023-11-12] MEDS: traZODone HCL 50 MG TABLET 100 MG PO (22:12)
[2023-11-12] MEDS: ATORVASTATIN 20 MG TABLET PO (22:13)
[2023-11-12] MEDS: INSULIN GLARGINE (*BKC) 100 UNITS/ML 36 UNITS SUB-Q (22:36)
[2023-11-13] MEDS: HYDROcodone/acetaminophen (*CRX) 10-325 MG TABLET 1 TAB PO ×4 (02:52→20:03)
[2023-11-13 05:42] LABS: Basophils Absolute Auto 0.1 K/mm3 (0.0-0.1); Basophils Percent Auto 0.5 % (0.2-1.2); Eosinophils Absolute Auto 0.2 K/mm3 (0-0.3); Eosinophils Percent Auto 2.4 % (0-4.4); Hematocrit 33.3 % (37.0-47.0); Hemoglobin 10.6 g/dL (12.0-15.0); Immature Granulocyte Absolute 0.04 K/mm3 (0.00-0.031); Immature Granulocyte Percent A 0.4 % (0-0.5); Lymphocytes Absolute Auto 2.42 K/mm3 (0.9-3.2); Lymphocytes Percent Auto 24.6 % (18.3-44.2); Mean Corpuscular HGB Conc 31.8 g/dl (32-36); Mean Corpuscular Hemoglobin 28.7 pg (26-34); Mean Corpuscular Volume 90.2 fl (80-100); Mean Platelet Volume 9.9 fl (7.4-10.4); Monocytes Absolute Auto 0.6 K/mm3 (0.1-0.6); Monocytes Percent Auto 5.6 % (2.6-8.5); Neutrophils Absolute Auto 6.6 K/mm3 (1.3-6.7); Neutrophils Percent Auto 66.5 % (45.5-73.1); Platelet Count Result 229 k/mm3 (150-375); Red Blood Count 3.69 M/mm3 (4.2-5.4); Red Cell Distribution Width 16.2 % (11.5-14.5); White Blood Count 9.9 K/mm3 (4.5-10.0)
[2023-11-13] MEDS: MEROPENEM 1 GM/NS 100 ML 1 GM/100 ML BAG IVPB ×3 (05:48→21:08)
[2023-11-13] MEDS: GABAPENTIN 300 MG CAPSULE 600 MG PO ×3 (05:48→21:07)
[2023-11-13 05:56] LABS: Albumin Level 3.5 g/dL (3.5-5.1); Anion Gap 4 mmol/L (4-12); Blood Urea Nitrogen 16 mg/dL (7-17); Calcium 9.7 mg/dL (8.4-10.2); Carbon Dioxide 23 mmol/L (22-30); Chloride 110 mmol/L (98-107); Estimated CRCL calculation 112 ml/min; Estimated Glomerular Filt Rate > 60; Glucose 91 mg/dL (65-110); Phosphorus 3.2 mg/dL (2.5-4.5); Potassium 4.1 mmol/L (3.4-5.0); Sodium 137 mmol/L (137-145)
[2023-11-13 06:00] VITALS: BP 161/87; PULSE 89; RESP 20; TEMP 36.2; O2SAT 99
[2023-11-13 08:11] LABS: Glucose Point of Care 154 mg/dl (65-105)
[2023-11-13 08:17] LABS: Glucose Point of Care 84 mg/dl (65-105)
[2023-11-13] MEDS: ENOXAPARIN 40 MG/0.4 ML SYRINGE SUB-Q (08:56)
[2023-11-13] MEDS: VANCOMYCIN 1,500 MG/NS 500 ML 1,500 MG/500 ML BAG 250 MG IVPB (08:57)
[2023-11-13] MEDS: SOD HYPOCHLORITE 1/4 STRENGTH 473 ML 1 APPLIC TOPICAL ×2 (08:57→20:06)
[2023-11-13] MEDS: INSULIN ASPART (*BKC) 100 UNITS/ML 10 UNITS SUB-Q ×2 (08:58→17:38)
[2023-11-13 09:00] VITALS: PULSE 92; RESP 16; O2SAT 98
--- NOTE | 2023-11-13 13:07 | PM.PNGS ---
Progress Note: A&P Assessment and Plan (1) Pressure ulcer of sacral region: Qualifiers: Pressure injury stage: unspecified pressure injury stage Qualified Code(s): L89.159 - Pressure ulcer of sacral region, unspecified stage Code(s): L89.159 - Pressure ulcer of sacral region, unspecified stage Status: Acute Assessment and Plan: cont local wound care [place], f/u c Dr. Roman in 2 wks as outpt for possible graft Subjective Subjective Date/Time Seen: 11/13/23 13:07 Interval history: no acute issues Review of Systems Review of Systems: All systems reviewed & are unremarkable except as noted in HPI and below Exam Const: General: cooperative, comfortable and no acute distress Resp: Auscultation: clear to auscultation bilaterally Cardio: Rate: regular rate Rhythm: regular rhythm GI: Inspection: normal to inspection GI Palp: No abdominal tenderness and Yes Soft to palpation Back/Spine/Pelvis: Other: sacral wound - drsg C/D/I Objective Data Vital Signs Vital Signs: Vital Signs - 24 hr 11/12/23 13:57 11/12/23 20:00 11/12/23 22:00 Temperature 36.3 C L 36.1 C L Pulse Rate 86 95 Respiratory Rate 18 20 Blood Pressure 157/76 H 167/84 H Pulse Oximetry 100 100 Oxygen Delivery Room Air 11/13/23 06:00 Temperature 36.2 C L Pulse Rate 89 Respiratory Rate 20 Blood Pressure 161/87 H Pulse Oximetry 99 Oxygen Delivery Intake/Output Intake/Output: Intake & Output 11/10/23 11/11/23 11/12/23 11/13/23 23:59 23:59 23:59 23:59 Intake Total 1600 2160 2700 960 Output Total 1450 2300 2200 Balance 1600 710 400 -1240 Meds/Results Medications: Active Medications Generic Name Dose Route Start Last Admin Trade Name Freq PRN Reason Stop Dose Admin Acetaminophen 650 mg 11/10/23 22:25 Acetaminophen 325 Mg Tablet PO Q6H PRN Mild Pain (1-3) or Fever Hydrocodone Bitart/Acetaminophen 1 tab 11/10/23 22:25 11/13/23 09:08 Hydrocodone/Acetaminophen (*Crx) 10-325 Mg Tablet PO 1 tab Q4H PRN Administration Pain (Scale Score 4-6) Atorvastatin Calcium 20 mg 11/11/23 21:00 11/12/23 22:13 Atorvastatin 20 Mg Tablet PO 20 mg HS SUSANNE Administration Dextrose 12.5 gm 11/10/23 22:25 Dextrose 50% 25 Gm/50 Ml Syringe IV PUSH PRN PRN Hypoglycemia Protocol Enoxaparin Sodium 40 mg 11/11/23 09:00 11/13/23 08:56 Enoxaparin 40 Mg/0.4 Ml Syringe SUB-Q 40 mg DAILY SUSANNE Administration Gabapentin 600 mg 11/10/23 22:00 11/13/23 05:48 Gabapentin 300 Mg Capsule PO 600 mg Q8HR SUSANNE Administration Glucagon 1 mg 11/10/23 22:25 Glucagon For Inj 1 Mg Vial IM PRN PRN Hypoglycemia Protocol Glucose 15 gm 11/10/23 22:25 Glucose Oral Gel 15 Gm Of Glucse In 37.5 Gm Tube PO PRN PRN Hypoglycemia Protocol Meropenem 1 gm in 100 mls @ 200 mls/hr 11/11/23 06:00 11/13/23 05:48 IVPB 200 mls/hr Q8H SUSANNE Administration Dextrose 1,000 mls @ 100 mls/hr 11/10/23 22:25 Dextrose 5% 1,000 Ml IVPB PRN PRN Hypoglycemia Protocol Vancomycin HCl 1,500 mg in 500 mls @ 250 mls/hr 11/12/23 15:00 11/13/23 08:57 Vancomycin 1,500 Mg/Ns 500 Ml IVPB 250 mls/hr Q18H SUSANNE Administration Insulin Aspart 10 units 11/11/23 08:00 11/13/23 12:30 Insulin Aspart (*Bkc) 100 Units/Ml SUB-Q Not Given TIDWM SUSANNE Insulin Aspart 3 - 6 units 11/11/23 08:00 11/13/23 12:30 Insulin Aspart (*Bkc) 100 Units/Ml SUB-Q Not Given TIDWM [facility] Protocol Insulin Aspart 1 - 3 units 11/11/23 21:00 11/13/23 00:11 Insulin Aspart (*Bkc) 100 Units/Ml SUB-Q Not Given HS [facility] Protocol Insulin Glargine 36 units 11/12/23 21:00 11/12/23 22:36 Insulin Glargine (*Bkc) 100 Units/Ml SUB-Q 36 units HS SUSANNE Administration Morphine Sulfate 2 mg 11/10/23 22:25 Morphine Sulfate (*Crx) 2 Mg/Ml Inj IV PUSH Q4H PRN Pain Rated 7-10 Ondansetron
[2023-11-13 14:00] VITALS: BP 173/83; PULSE 92; RESP 16; TEMP 36.6; O2SAT 98
[2023-11-13 17:12] LABS: Glucose Point of Care 71 mg/dl (65-105)
[2023-11-13 17:12] LABS: Glucose Point of Care 158 mg/dl (65-105)
--- NOTE | 2023-11-13 18:57 | PM.IMPN ---
Progress Note: A&P Assessment and Plan (1) Complicated urinary tract infection: Code(s): N39.0 - Urinary tract infection, site not specified Status: Acute Assessment and Plan: Patient presents with nausea and vomiting. UPT negative. Patient has spinal cord injury and probably with neurogenic bladder requiring chronic [facility] ED visit on 10/02/23 with UCx that grew Enterobacter cloacae sensitive to meropenem ED on 11/08/23 with UCx growing Klebsiella pneumoniae that was snell resistant. UA was consistent with UTI on this admission as well. UCx (11/09) - GNB BCx (11/09) NGTD CT scan shows heterogeneous geographic hypoperfusion the atrophic left kidney concerning for pyelonephritis. She was started on vancomycin and meropenem. WBC remains normal. No fevers. [facility] has been changed out since admission Follow-up on culture results. Continue current abx (2) Pressure ulcer of sacral region: Qualifiers: Pressure injury stage: unspecified pressure injury stage Qualified Code(s): L89.159 - Pressure ulcer of sacral region, unspecified stage Code(s): L89.159 - Pressure ulcer of sacral region, unspecified stage Status: Acute Assessment and Plan: CT scan of the abdomen and pelvis showed moderate phlegmonous changes present in the presacral/perirectal location as well as posterior to the sacrum. No obvious drainable fluid collection identified. General surgery consulted and appreciate their input. Wound care consulted. Wound cultures obtained and growing Klebsiella pneumoniae. Continue dressing changes. Continue current IV antibiotics (3) Type 1 diabetes mellitus: Code(s): E10.9 - Type 1 diabetes mellitus without complications Status: Acute Assessment and Plan: A1c 5.7. The patient's blood glucose was reviewed on 11/11 Glucose remains almost too well controlled. Continue AccuCheks covering with sliding scale. Hypoglycemia protocol available as needed. Continue to follow. Will back off on lantus dose. (4) Elevated blood pressure reading: Code(s): R03.0 - Elevated blood-pressure reading, without diagnosis of hypertension Status: Acute Assessment and Plan: Patient with elevated blood pressure on admission. It has persistent and may be related to pain. Prior BP have been mostly okay. Continue to follow for now. 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 She was having paresthesias to her feet and workup revealed aortic disease requiring surgery. She had surgery in [place] in May 2023 that was complicated with spinal cord stroke resulting in paraplegia and a long complicated course. 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 Also with possible neurogenic bladder but has the sensation to void and does not appear to have had urodynamics Frequent turning. Routine skin care. Plan Assuming care on 11/13/2023. No change in the patient's status however we are waiting on sensitivities the urine and wound culture. Continue vancomycin meropenem DVT prophylaxis - Lovenox Code status - full Subjective Date/time seen: 11/13/23 18:57 Interval history: No acute overnight events. She denies complaints today. Review of Systems Review of Systems: All systems reviewed & are unremarkable except as noted in HPI and below (Subjective) Exam Const: General: comfortable and no acute distress Eyes: Pupils: Equal, round and reactive pupils present Neck: Neck: supple GI: Inspection: non-distended GI Palp: Yes Soft to palpation Auscultation: normal bowel sounds : Bimanual exam- vagina & uterus: bladder normal to palpation Extrem: General: no edema Objective Data Vital Signs Vital Signs: Vital Signs - 24 hr 11/12/23 20:00 11/12/23 2
[2023-11-13] MEDS: traZODone HCL 50 MG TABLET 100 MG PO (20:03)
[2023-11-13] MEDS: ATORVASTATIN 20 MG TABLET PO (20:04)
[2023-11-13] MEDS: INSULIN GLARGINE (*BKC) 100 UNITS/ML 36 UNITS SUB-Q (20:11)
[2023-11-13 21:07] LABS: Glucose Point of Care 147 mg/dl (65-105)
[2023-11-13 22:00] VITALS: BP 168/71; PULSE 97; RESP 18; TEMP 36.3; O2SAT 96
[2023-11-14] MEDS: HYDROcodone/acetaminophen (*CRX) 10-325 MG TABLET 1 TAB PO ×4 (02:46→21:06)
[2023-11-14] MEDS: VANCOMYCIN 1,500 MG/NS 500 ML 1,500 MG/500 ML BAG 250 MG IVPB (02:47)
[2023-11-14] MEDS: ONDANSETRON INJ 4 MG/2 ML VIAL IV PUSH (02:53)
[2023-11-14 05:41] LABS: Basophils Absolute Auto 0.1 K/mm3 (0.0-0.1); Basophils Percent Auto 0.6 % (0.2-1.2); Eosinophils Absolute Auto 0.2 K/mm3 (0-0.3); Hematocrit 32.8 % (37.0-47.0); Hemoglobin 10.3 g/dL (12.0-15.0); Immature Granulocyte Absolute 0.03 K/mm3 (0.00-0.031); Immature Granulocyte Percent A 0.4 % (0-0.5); Lymphocytes Absolute Auto 2.14 K/mm3 (0.9-3.2); Mean Corpuscular HGB Conc 31.4 g/dl (32-36); Mean Corpuscular Hemoglobin 28.5 pg (26-34); Mean Corpuscular Volume 90.9 fl (80-100); Mean Platelet Volume 9.8 fl (7.4-10.4); Monocytes Absolute Auto 0.5 K/mm3 (0.1-0.6); Monocytes Percent Auto 6.2 % (2.6-8.5); Neutrophils Percent Auto 62.8 % (45.5-73.1); Platelet Count Result 231 k/mm3 (150-375); Red Blood Count 3.61 M/mm3 (4.2-5.4); White Blood Count 7.9 K/mm3 (4.5-10.0)
[2023-11-14] MEDS: GABAPENTIN 300 MG CAPSULE 600 MG PO ×3 (05:52→21:06)
[2023-11-14] MEDS: MEROPENEM 1 GM/NS 100 ML 1 GM/100 ML BAG IVPB (05:52)
[2023-11-14 06:00] VITALS: BP 150/73; PULSE 81; RESP 20; TEMP 36.3; O2SAT 100
[2023-11-14 06:03] LABS: Anion Gap 4 mmol/L (4-12); Blood Urea Nitrogen 19 mg/dL (7-17); Calcium 9.6 mg/dL (8.4-10.2); Carbon Dioxide 23 mmol/L (22-30); Chloride 109 mmol/L (98-107); Estimated CRCL calculation 99 ml/min; Estimated Glomerular Filt Rate > 60; Glucose 113 mg/dL (65-110); Potassium 4.4 mmol/L (3.4-5.0); Sodium 136 mmol/L (137-145)
[2023-11-14 06:24] LABS: Procalcitonin 5.5 ng/mL
[2023-11-14] MEDS: ENOXAPARIN 40 MG/0.4 ML SYRINGE SUB-Q (08:47)
[2023-11-14 08:55] LABS: Glucose Point of Care 109 mg/dl (65-105)
--- NOTE | 2023-11-14 09:21 | PC.NURSE ---
Patient BS was 109 a bedfast. Pt had 10 units Novolog scheduled. Supervisor Prop Making spoke with patient you is afraid that dose would lower her BS too much. Morning dose was held and will continue to monitor BS levels
[2023-11-14] MEDS: SOD HYPOCHLORITE 1/4 STRENGTH 473 ML 1 APPLIC TOPICAL ×2 (10:25→21:10)
[2023-11-14 11:17] LABS: Glucose Point of Care 99 mg/dl (65-105)
[2023-11-14] MEDS: ERTAPENEM 1 GM/NS 50 ML 1 GM/50 ML BAG IVPB (12:13)
[2023-11-14 13:49] VITALS: BP 148/67; PULSE 68; RESP 16; TEMP 36.5; O2SAT 96
--- NOTE | 2023-11-14 15:30 | PM.IMPN ---
Progress Note: A&P Assessment and Plan (1) Complicated urinary tract infection: Code(s): N39.0 - Urinary tract infection, site not specified Status: Acute Assessment and Plan: Patient presents with nausea and vomiting. UPT negative. Patient has spinal cord injury and probably with neurogenic bladder requiring chronic [facility] ED visit on 10/02/23 with UCx that grew Enterobacter cloacae sensitive to meropenem ED on 11/08/23 with UCx growing Klebsiella pneumoniae that was snell resistant. UA was consistent with UTI on this admission as well. UCx (11/09) -Klebsiella pneumonia only sensitive to imipenem meropenem BCx (11/09) no growth to date CT scan shows heterogeneous geographic hypoperfusion the atrophic left kidney concerning for pyelonephritis. She was started on vancomycin and meropenem. WBC remains normal. No fevers. [facility] has been changed out since admission On 11/13 meropenem and vancomycin changed to ertapenem. Complete 7 day course last day would be on SaturdayNovember 16 (2) Pressure ulcer of sacral region: Qualifiers: Pressure injury stage: unspecified pressure injury stage Qualified Code(s): L89.159 - Pressure ulcer of sacral region, unspecified stage Code(s): L89.159 - Pressure ulcer of sacral region, unspecified stage Status: Acute Assessment and Plan: CT scan of the abdomen and pelvis showed moderate phlegmonous changes present in the presacral/perirectal location as well as posterior to the sacrum. No obvious drainable fluid collection identified. General surgery consulted and appreciate their input. Wound care consulted. Wound cultures obtained and growing Klebsiella pneumoniae pansensitive and MSSA Continue dressing changes. On 11/14/2023 meropenem and vancomycin changed to ertapenem. (3) Type 1 diabetes mellitus: Code(s): E10.9 - Type 1 diabetes mellitus without complications Status: Acute Assessment and Plan: A1c 5.7. The patient's blood glucose was reviewed on 11/11 Glucose remains almost too well controlled. Continue AccuCheks covering with sliding scale. Hypoglycemia protocol available as needed. Continue to follow. Lantus dose has been decreased (4) Elevated blood pressure reading: Code(s): R03.0 - Elevated blood-pressure reading, without diagnosis of hypertension Status: Acute Assessment and Plan: Patient with elevated blood pressure on admission. It has persistent and may be related to pain. 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 She was having paresthesias to her feet and workup revealed aortic disease requiring surgery. She had surgery in [place] in May 2023 that was complicated with spinal cord stroke resulting in paraplegia and a long complicated course. 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 Also with possible neurogenic bladder but has the sensation to void and does not appear to have had urodynamics Frequent turning. Routine skin care. Plan Patient has necrotic toes which she reports to be improving, related to her initial aortic surgery in May DVT prophylaxis - Lovenox Code status - full Dispo: On 11/13 the tibia is for urine and wound culture resulted. Wound culture MSSA and Klebsiella pansensitive however urine was resistant, only sensitive to meropenem imipenem. Antibiotics meropenem and vancomycin change to ertapenem 1 day dosing to help get the patient discharged. Discussions held with care coordination and unfortunately they are unable to provide home health service to administer daily ertapenem dosing. Ertapenem can be given IM but pharmacy cannot prescribe that for the patient either. Unfortunately, it seems she will require daily ertapenem dosing and then can be discharged
[2023-11-14 17:03] LABS: Glucose Point of Care 116 mg/dl (65-105)
--- NOTE | 2023-11-14 17:05 | PC.NURSE ---
Pt BS has been in low 100's and feels BS would lower too much with 10U Novolog at dinner
[2023-11-14 20:58] LABS: Glucose Point of Care 156 mg/dl (65-105)
[2023-11-14 21:02] VITALS: BP 166/76; PULSE 92; RESP 20; TEMP 36.9; O2SAT 100
[2023-11-14] MEDS: INSULIN GLARGINE (*BKC) 100 UNITS/ML 36 UNITS SUB-Q (21:05)
[2023-11-14] MEDS: traZODone HCL 50 MG TABLET 100 MG PO (21:06)
[2023-11-14] MEDS: ATORVASTATIN 20 MG TABLET PO (21:06)
[2023-11-15] MEDS: HYDROcodone/acetaminophen (*CRX) 10-325 MG TABLET 1 TAB PO ×3 (01:04→14:14)
[2023-11-15 05:40] VITALS: BP 145/75; PULSE 82; RESP 20; TEMP 36.9; O2SAT 100
[2023-11-15] MEDS: GABAPENTIN 300 MG CAPSULE 600 MG PO ×3 (06:56→20:38)
[2023-11-15] MEDS: MORPHINE SULFATE (*CRX) 2 MG/ML INJ IV PUSH (07:23)
[2023-11-15 08:18] LABS: Glucose Point of Care 100 mg/dl (65-105)
[2023-11-15] MEDS: ENOXAPARIN 40 MG/0.4 ML SYRINGE SUB-Q (08:46)
[2023-11-15] MEDS: SOD HYPOCHLORITE 1/4 STRENGTH 473 ML 1 APPLIC TOPICAL ×2 (09:38→20:46)
[2023-11-15] MEDS: ERTAPENEM 1 GM/NS 50 ML 1 GM/50 ML BAG IVPB (12:01)
[2023-11-15 12:04] LABS: Glucose Point of Care 142 mg/dl (65-105)
[2023-11-15] MEDS: ONDANSETRON INJ 4 MG/2 ML VIAL IV PUSH ×2 (14:10→22:17)
[2023-11-15 14:32] VITALS: BP 150/67; PULSE 84; RESP 18; TEMP 36.2; O2SAT 98
[2023-11-15 16:52] LABS: Glucose Point of Care 136 mg/dl (65-105)
--- NOTE | 2023-11-15 16:57 | PM.IMPN ---
Progress Note: A&P Assessment and Plan (1) Complicated urinary tract infection: Code(s): N39.0 - Urinary tract infection, site not specified Status: Acute Assessment and Plan: Patient presents with nausea and vomiting. UPT negative. Patient has spinal cord injury and probably with neurogenic bladder requiring chronic [facility] ED visit on 10/02/23 with UCx that grew Enterobacter cloacae sensitive to meropenem ED on 11/08/23 with UCx growing Klebsiella pneumoniae that was snell resistant. UA was consistent with UTI on this admission as well. UCx (11/09) -Klebsiella pneumonia only sensitive to imipenem meropenem BCx (11/09) no growth to date CT scan shows heterogeneous geographic hypoperfusion the atrophic left kidney concerning for pyelonephritis. She was started on vancomycin and meropenem. WBC remains normal. No fevers. [facility] has been changed out since admission On 11/13 meropenem and vancomycin changed to ertapenem. Complete 7 day course last day would be on SaturdayNovember 16 (2) Pressure ulcer of sacral region: Qualifiers: Pressure injury stage: unspecified pressure injury stage Qualified Code(s): L89.159 - Pressure ulcer of sacral region, unspecified stage Code(s): L89.159 - Pressure ulcer of sacral region, unspecified stage Status: Acute Assessment and Plan: CT scan of the abdomen and pelvis showed moderate phlegmonous changes present in the presacral/perirectal location as well as posterior to the sacrum. No obvious drainable fluid collection identified. General surgery consulted and appreciate their input. Wound care consulted. Wound cultures obtained and growing Klebsiella pneumoniae pansensitive and MSSA Continue dressing changes. On 11/14/2023 meropenem and vancomycin changed to ertapenem. (3) Type 1 diabetes mellitus: Code(s): E10.9 - Type 1 diabetes mellitus without complications Status: Acute Assessment and Plan: A1c 5.7. Glucose remains almost too well controlled. Continue AccuCheks covering with sliding scale. Hypoglycemia protocol available as needed. Continue to follow. Lantus dose has been decreased (4) Elevated blood pressure reading: Code(s): R03.0 - Elevated blood-pressure reading, without diagnosis of hypertension Status: Acute Assessment and Plan: Patient with elevated blood pressure on admission. It has persistent and may be related to pain. 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 She was having paresthesias to her feet and workup revealed aortic disease requiring surgery. She had surgery in [place] in May 2023 that was complicated with spinal cord stroke resulting in paraplegia and a long complicated course. 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 Also with possible neurogenic bladder but has the sensation to void and does not appear to have had urodynamics Frequent turning. Routine skin care. Plan Patient has necrotic toes which she reports to be improving, related to her initial aortic surgery in May DVT prophylaxis - Lovenox Code status - full Dispo: On 11/13 the tibia is for urine and wound culture resulted. Wound culture MSSA and Klebsiella pansensitive however urine was resistant, only sensitive to meropenem imipenem. Antibiotics meropenem and vancomycin change to ertapenem 1 day dosing to help get the patient discharged. Discussions held with care coordination and unfortunately they are unable to provide home health service to administer daily ertapenem dosing. Ertapenem can be given IM but pharmacy cannot prescribe that for the patient either. Unfortunately, it seems she will require daily ertapenem dosing and then can be discharged on Saturday after completing 7 day course. She is
--- NOTE | 2023-11-15 17:50 | PC.NURSE ---
Nursing staff received call from manager behavioral of food service helper regarding behavior of patient towards food service helper staff. Patient has been rude and aggressive, as well as, hanging up on staff on several occasions. on this instance, patient was upset she couldn't receive cornelio sauce after she had already received a meal tray. Patient called nurses station to sign out AMA stating this isn't [facility] and she can get what she wants . At this time patient has decided to stay but states if one more thing goes wrong shes leaving .
[2023-11-15] MEDS: METOCLOPRAMIDE HCL INJ 10 MG/2 ML VIAL 5 MG IV PUSH (18:42)
[2023-11-15 20:37] VITALS: BP 151/79; PULSE 95; RESP 18; TEMP 36.5; O2SAT 100
[2023-11-15] MEDS: ATORVASTATIN 20 MG TABLET PO (20:38)
[2023-11-15] MEDS: traZODone HCL 50 MG TABLET 100 MG PO (20:38)
[2023-11-15] MEDS: INSULIN GLARGINE (*BKC) 100 UNITS/ML 36 UNITS SUB-Q (20:43)
[2023-11-15 21:47] LABS: Glucose Point of Care 164 mg/dl (65-105)
--- NOTE | 2023-11-15 22:09 | PC.NURSE ---
At patient bedside in attempt to administer wound care. Patient states that this task was recently performed by her daughter. Patient verbalized no further intervention necessary.
[2023-11-16] MEDS: METOCLOPRAMIDE HCL INJ 10 MG/2 ML VIAL 5 MG IV PUSH ×2 (00:15→15:23)
[2023-11-16 05:32] VITALS: BP 148/74; PULSE 99; RESP 18; TEMP 36.4; O2SAT 94
[2023-11-16] MEDS: ONDANSETRON INJ 4 MG/2 ML VIAL IV PUSH ×3 (06:00→20:12)
[2023-11-16] MEDS: GABAPENTIN 300 MG CAPSULE 600 MG PO ×3 (06:00→20:16)
[2023-11-16 08:13] LABS: Glucose Point of Care 107 mg/dl (65-105)
[2023-11-16 09:05] VITALS: O2SAT 94
[2023-11-16] MEDS: HYDROcodone/acetaminophen (*CRX) 10-325 MG TABLET 1 TAB PO ×2 (09:07→17:56)
[2023-11-16] MEDS: ENOXAPARIN 40 MG/0.4 ML SYRINGE SUB-Q (09:09)
[2023-11-16] MEDS: SOD HYPOCHLORITE 1/4 STRENGTH 473 ML 1 APPLIC TOPICAL ×2 (09:10→20:17)
[2023-11-16 12:04] LABS: Glucose Point of Care 106 mg/dl (65-105)
[2023-11-16] MEDS: ERTAPENEM 1 GM/NS 50 ML 1 GM/50 ML BAG IVPB (12:18)
--- NOTE | 2023-11-16 13:13 | WPDPN ---
Progress Note: A&P Assessment and Plan (1) Complicated urinary tract infection: Code(s): N39.0 - Urinary tract infection, site not specified Status: Acute Assessment and Plan: Patient is completing a course of IV antibiotic therapy for urinary tract infection. (2) Pressure ulcer of sacral region: Qualifiers: Pressure injury stage: unspecified pressure injury stage Qualified Code(s): L89.159 - Pressure ulcer of sacral region, unspecified stage Code(s): L89.159 - Pressure ulcer of sacral region, unspecified stage Status: Acute Assessment and Plan: Patient has a sacral decubitus ulcer which has angulation tissue at the base over the sacrum. There is no bone exposed at this time. There is no chronic tissue and no cellulitic changes around the wound. I think she would benefit from application of a xenograft to facilitate faster wound closure and with the application of a wound VAC. Will need to check with Case Management or wound care nurses to see if she has benefits from her insurance for wound VAC and then whether she can have a home health nurse change the wound VAC sent home work if she can come to the [facility] here at [facility] for wound VAC changes. If it looks like this is a viable option then I would retain her here in the hospital so that I can apply the graft and wound VAC in the operating room early next week. Subjective Date/time seen: 11/16/23 13:13 Interval history: Patient seen today for follow-up on her sacral decubitus wound. She was admitted for urine tract infection with multidrug resistant organisms has needed IV antibiotics with ertapenem. She is going to complete that course of treatment tomorrow. I was asked to evaluate the patient for her sacral decubitus wound which presently is clean without any obvious necrotic tissue. Exam Skin: Other: Sacral decubitus wound is clean. The skin that measures about 3cm in diameter. It is about 2cm deep. There is a tunnel for about additional 3cm cephalad. There is no sign drainage no redness of the skin around the wound. Good granulation tissue at the base. Objective Data Vital Signs Vital Signs: Vital Signs - 24 hr 11/15/23 14:32 11/15/23 20:37 11/15/23 20:00 Temperature 36.2 C L 36.5 C Pulse Rate 84 95 Respiratory Rate 18 18 Blood Pressure 150/67 H 151/79 H Pulse Oximetry 98 100 Oxygen Delivery Room Air 11/16/23 05:32 11/16/23 09:05 Temperature 36.4 C Pulse Rate 99 Respiratory Rate 18 Blood Pressure 148/74 H Pulse Oximetry 94 94 Oxygen Delivery Room Air Intake/Output Intake/Output: Intake & Output 11/13/23 11/14/23 11/15/23 11/16/23 23:59 23:59 23:59 23:59 Intake Total 3360 2150 1780 400 Output Total 3800 4425 3050 1550 [facility] [phone] Meds/Results Medications: Active Medications Generic Name Dose Route Start Last Admin Trade Name Freq PRN Reason Stop Dose Admin Acetaminophen 650 mg 11/10/23 22:25 Acetaminophen 325 Mg Tablet PO Q6H PRN Mild Pain (1-3) or Fever Hydrocodone Bitart/Acetaminophen 1 tab 11/10/23 22:25 11/16/23 09:07 Hydrocodone/Acetaminophen (*Crx) 10-325 Mg Tablet PO 1 tab Q4H PRN Administration Pain (Scale Score 4-6) Atorvastatin Calcium 20 mg 11/11/23 21:00 11/15/23 20:38 Atorvastatin 20 Mg Tablet PO 20 mg HS SUSANNE Administration Dextrose 12.5 gm 11/10/23 22:25 Dextrose 50% 25 Gm/50 Ml Syringe IV PUSH PRN PRN Hypoglycemia Protocol Enoxaparin Sodium 40 mg 11/11/23 09:00 11/16/23 09:09 Enoxaparin 40 Mg/0.4 Ml Syringe SUB-Q 40 mg DAILY SUSANNE Administration Gabapentin 600 mg 11/10/23 22:00 11/16/23 06:00 Gabapentin 300 Mg Capsule PO 600 mg Q8HR SUSANNE Administration Glucagon 1 mg 11/10/23 22:25 Glucagon For Inj 1 Mg Vial IM PRN PRN Hypoglycemia Protocol Glucose 15 gm 11/10/23 22:25 Glucose Oral
--- NOTE | 2023-11-16 13:53 | PM.IMPN ---
Progress Note: A&P Assessment and Plan (1) Complicated urinary tract infection: Code(s): N39.0 - Urinary tract infection, site not specified Status: Acute Assessment and Plan: Patient presents with nausea and vomiting. UPT negative. Patient has spinal cord injury and probably with neurogenic bladder requiring chronic [facility] ED visit on 10/02/23 with UCx that grew Enterobacter cloacae sensitive to meropenem ED on 11/08/23 with UCx growing Klebsiella pneumoniae that was snell resistant. UA was consistent with UTI on this admission as well. UCx (11/09) -Klebsiella pneumonia only sensitive to imipenem meropenem BCx (11/09) no growth to date CT scan shows heterogeneous geographic hypoperfusion the atrophic left kidney concerning for pyelonephritis. She was started on vancomycin and meropenem. WBC remains normal. No fevers. [facility] has been changed out since admission On 11/13 meropenem and vancomycin changed to ertapenem. Complete 7 day course last day would be on SaturdayNovember 16 (2) Pressure ulcer of sacral region: Qualifiers: Pressure injury stage: unspecified pressure injury stage Qualified Code(s): L89.159 - Pressure ulcer of sacral region, unspecified stage Code(s): L89.159 - Pressure ulcer of sacral region, unspecified stage Status: Acute Assessment and Plan: CT scan of the abdomen and pelvis showed moderate phlegmonous changes present in the presacral/perirectal location as well as posterior to the sacrum. No obvious drainable fluid collection identified. General surgery consulted and appreciate their input. Wound care consulted. Wound cultures obtained and growing Klebsiella pneumoniae pansensitive and MSSA Continue dressing changes. On 11/14/2023 meropenem and vancomycin changed to ertapenem. Plans for graft and VAC placement noted from General surgery. Care coordination consulted (3) Type 1 diabetes mellitus: Code(s): E10.9 - Type 1 diabetes mellitus without complications Status: Acute Assessment and Plan: A1c 5.7. Glucose remains almost too well controlled. Continue AccuCheks covering with sliding scale. Hypoglycemia protocol available as needed. Continue to follow. Lantus dose has been decreased (4) Elevated blood pressure reading: Code(s): R03.0 - Elevated blood-pressure reading, without diagnosis of hypertension Status: Acute Assessment and Plan: Patient with elevated blood pressure on admission. It has persistent and may be related to pain. 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 She was having paresthesias to her feet and workup revealed aortic disease requiring surgery. She had surgery in [place] in May 2023 that was complicated with spinal cord stroke resulting in paraplegia and a long complicated course. 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 Also with possible neurogenic bladder but has the sensation to void and does not appear to have had urodynamics Frequent turning. Routine skin care. Plan Patient has necrotic toes which she reports to be improving, related to her initial aortic surgery in May DVT prophylaxis - Lovenox Code status - full Dispo: On 11/13 the tibia is for urine and wound culture resulted. Wound culture MSSA and Klebsiella pansensitive however urine was resistant, only sensitive to meropenem imipenem. Antibiotics meropenem and vancomycin change to ertapenem 1 day dosing to help get the patient discharged. Discussions held with care coordination and unfortunately they are unable to provide home health service to administer daily ertapenem dosing. Ertapenem can be given IM but pharmacy cannot prescribe that for the patient either. Unfortunately, it seems she will require daily er
[2023-11-16 14:36] VITALS: BP 140/76; PULSE 98; RESP 19; TEMP 36.4; O2SAT 99
[2023-11-16 16:56] LABS: Glucose Point of Care 162 mg/dl (65-105)
[2023-11-16] MEDS: INSULIN ASPART (*BKC) 100 UNITS/ML 10 UNITS SUB-Q (17:50)
[2023-11-16 19:40] VITALS: BP 179/86; PULSE 97; RESP 16; TEMP 36.3; O2SAT 100
[2023-11-16 20:01] LABS: Glucose Point of Care 128 mg/dl (65-105)
[2023-11-16] MEDS: ATORVASTATIN 20 MG TABLET PO (20:16)
[2023-11-16] MEDS: traZODone HCL 50 MG TABLET 100 MG PO (20:17)
[2023-11-16] MEDS: INSULIN GLARGINE (*BKC) 100 UNITS/ML 36 UNITS SUB-Q (20:18)
[2023-11-17] MEDS: METOCLOPRAMIDE HCL INJ 10 MG/2 ML VIAL 5 MG IV PUSH ×3 (00:04→23:58)
[2023-11-17] MEDS: HYDROcodone/acetaminophen (*CRX) 10-325 MG TABLET 1 TAB PO ×4 (00:04→20:23)
[2023-11-17 03:51] VITALS: BP 133/67; PULSE 90; RESP 20; TEMP 36.4; O2SAT 100
[2023-11-17] MEDS: GABAPENTIN 300 MG CAPSULE 600 MG PO ×3 (05:36→20:18)
[2023-11-17] MEDS: ONDANSETRON INJ 4 MG/2 ML VIAL IV PUSH ×2 (05:38→20:23)
[2023-11-17 07:46] LABS: Glucose Point of Care 110 mg/dl (65-105)
[2023-11-17] MEDS: ENOXAPARIN 40 MG/0.4 ML SYRINGE SUB-Q (08:38)
[2023-11-17 08:40] VITALS: O2SAT 100
--- NOTE | 2023-11-17 08:41 | PC.NURSE ---
Scheduled insulin 10 units at 0800 held, patient is not eating.
--- NOTE | 2023-11-17 11:18 | WPDPN ---
Progress Note: A&P Assessment and Plan (1) Pressure ulcer of sacral region: Qualifiers: Pressure injury stage: unspecified pressure injury stage Qualified Code(s): L89.159 - Pressure ulcer of sacral region, unspecified stage Code(s): L89.159 - Pressure ulcer of sacral region, unspecified stage Status: Acute Assessment and Plan: Sacral decubitus ulcer base is clean. There is good granulation tissue in the area. No cellulitis around the infection is noted. Will plan on proceeding with placement of Marigen xenograft tomorrow or the next day and application wound VAC to hopefully get the wound heal faster. Will need to stay in hospital least 2 days after procedure until the wound VAC and removed for the 1st time after placement of the graft. After that time hopefully we can continue the wound VAC and home and have either home health nurse coming to the home changes or the patient come to the [facility] wound VAC changes. Alternatively there is an option to try to teach family MRSA change the wound after home since they have been performing packing of the wound on a regular basis in doing very good job of keeping the wound clean. Will keep her NPO after midnight just in case an abdomen schedule tomorrow for placement of the graft. Subjective Date/time seen: 11/17/23 11:18 Interval history: Patient without acute clinical changes. He has been doing well. Exam Skin: Other: Sacral decubitus wound remains unchanged from yesterday's exam. There is no purulent drainage. No cellulitis. Wound measures approximately 3cm at the opening with 2cm in depth. Is about 3cm in cephalad tunneling. Objective Data Vital Signs Vital Signs: Vital Signs - 24 hr 11/16/23 14:36 11/16/23 19:40 11/17/23 03:51 Temperature 36.4 C 36.3 C L 36.4 C Pulse Rate 98 97 90 Respiratory Rate 19 16 20 Blood Pressure 140/76 179/86 H 133/67 Pulse Oximetry 99 100 100 Intake/Output Intake/Output: Intake & Output 11/14/23 11/15/23 11/16/23 11/17/23 23:59 23:59 23:59 23:59 Intake Total 2150 1780 1650 300 Output Total 4419 3050 3400 1250 Balance -4901 -8900 -3760 -218 Meds/Results Medications: Active Medications Generic Name Dose Route Start Last Admin Trade Name Freq PRN Reason Stop Dose Admin Acetaminophen 650 mg 11/10/23 22:25 Acetaminophen 325 Mg Tablet PO Q6H PRN Mild Pain (1-3) or Fever Hydrocodone Bitart/Acetaminophen 1 tab 11/10/23 22:25 11/17/23 05:38 Hydrocodone/Acetaminophen (*Crx) 10-325 Mg Tablet PO 1 tab Q4H PRN Administration Pain (Scale Score 4-6) Atorvastatin Calcium 20 mg 11/11/23 21:00 11/16/23 20:16 Atorvastatin 20 Mg Tablet PO 20 mg HS SUSANNE Administration Dextrose 12.5 gm 11/10/23 22:25 Dextrose 50% 25 Gm/50 Ml Syringe IV PUSH PRN PRN Hypoglycemia Protocol Enoxaparin Sodium 40 mg 11/11/23 09:00 11/17/23 08:38 Enoxaparin 40 Mg/0.4 Ml Syringe SUB-Q 40 mg DAILY SUSANNE Administration Gabapentin 600 mg 11/10/23 22:00 11/17/23 05:36 Gabapentin 300 Mg Capsule PO 600 mg Q8HR SUSANNE Administration Glucagon 1 mg 11/10/23 22:25 Glucagon For Inj 1 Mg Vial IM PRN PRN Hypoglycemia Protocol Glucose 15 gm 11/10/23 22:25 Glucose Oral Gel 15 Gm Of Glucse In 37.5 Gm Tube PO PRN PRN Hypoglycemia Protocol Dextrose 1,000 mls @ 100 mls/hr 11/10/23 22:25 Dextrose 5% 1,000 Ml IVPB PRN PRN Hypoglycemia Protocol Ertapenem 1 gm in 50 mls @ 100 mls/hr 11/14/23 12:00 11/16/23 12:18 Invanz 1 Gm/Ns 50 Ml IVPB 11/17/23 12:29 100 mls/hr Q24H SUSANNE Administration Insulin Aspart 10 units 11/11/23 08:00 11/17/23 08:40 Insulin Aspart (*Bkc) 100 Units/Ml SUB-Q Not Given TIDWM [facility] Insulin Aspart 3 - 6 units 11/11/23 08:00 11/17/23 08:37 Insulin Aspart (*Bkc) 100 Units/Ml SUB-Q Not Given TIDWM [facility] Protocol Insulin
--- NOTE | 2023-11-17 11:50 | PM.IMPN ---
Progress Note: A&P Assessment and Plan (1) Complicated urinary tract infection: Code(s): N39.0 - Urinary tract infection, site not specified Status: Acute Assessment and Plan: Patient presents with nausea and vomiting. UPT negative. Patient has spinal cord injury and probably with neurogenic bladder requiring chronic Marcos ED visit on 10/02/23 with UCx that grew Enterobacter cloacae sensitive to meropenem ED on 11/08/23 with UCx growing Klebsiella pneumoniae that was snell resistant. UA was consistent with UTI on this admission as well. UCx (11/09) -Klebsiella pneumonia only sensitive to imipenem meropenem BCx (11/09) no growth to date CT scan shows heterogeneous geographic hypoperfusion the atrophic left kidney concerning for pyelonephritis. She was started on vancomycin and meropenem. WBC remains normal. No fevers. Marcos has been changed out since admission On 11/13 meropenem and vancomycin changed to ertapenem. Complete 7 day course last day would be on SaturdayNovember 16 (2) Pressure ulcer of sacral region: Qualifiers: Pressure injury stage: unspecified pressure injury stage Qualified Code(s): L89.159 - Pressure ulcer of sacral region, unspecified stage Code(s): L89.159 - Pressure ulcer of sacral region, unspecified stage Status: Acute Assessment and Plan: CT scan of the abdomen and pelvis showed moderate phlegmonous changes present in the presacral/perirectal location as well as posterior to the sacrum. No obvious drainable fluid collection identified. General surgery consulted and appreciate their input. Wound care consulted. Wound cultures obtained and growing Klebsiella pneumoniae pansensitive and MSSA Continue dressing changes. On 11/14/2023 meropenem and vancomycin changed to ertapenem. Plans for graft and VAC placement noted from General surgery. Care coordination consulted. Tentatively planned for skin grafting in a.m. (3) Type 1 diabetes mellitus: Code(s): E10.9 - Type 1 diabetes mellitus without complications Status: Acute Assessment and Plan: A1c 5.7. Glucose remains almost too well controlled. Continue AccuCheks covering with sliding scale. Hypoglycemia protocol available as needed. Continue to follow. Lantus dose has been decreased (4) Elevated blood pressure reading: Code(s): R03.0 - Elevated blood-pressure reading, without diagnosis of hypertension Status: Acute Assessment and Plan: Patient with elevated blood pressure on admission. It has persistent and may be related to pain. 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 She was having paresthesias to her feet and workup revealed aortic disease requiring surgery. She had surgery in [place] in May 2023 that was complicated with spinal cord stroke resulting in paraplegia and a long complicated course. She developed a sacral decubitus ulcer with osteomyelitis requiring half-way IV abx via PICC line. Also with possible neurogenic bladder but has the sensation to void and does not appear to have had urodynamics Frequent turning. Routine skin care. Plan Patient has necrotic toes which she reports to be improving, related to her initial aortic surgery in May DVT prophylaxis - Lovenox Code status - full Dispo: On 11/13 the tibia is for urine and wound culture resulted. Wound culture MSSA and Klebsiella pansensitive however urine was resistant, only sensitive to meropenem imipenem. Antibiotics meropenem and vancomycin change to ertapenem 1 day dosing to help get the patient discharged. Discussions held with care coordination and unfortunately they are unable to provide home health service to administer daily ertapenem dosing. Ertapenem can be given IM but pharmacy cannot prescribe that for the patient either. U
[2023-11-17 11:59] LABS: Glucose Point of Care 196 mg/dl (65-105)
[2023-11-17] MEDS: PANTOPRAZOLE 40 MG TABLET PO (12:11)
[2023-11-17] MEDS: ERTAPENEM 1 GM/NS 50 ML 1 GM/50 ML BAG IVPB (12:11)
[2023-11-17] MEDS: INSULIN ASPART (*BKC) 100 UNITS/ML 10 UNITS SUB-Q (12:12)
[2023-11-17 14:00] VITALS: BP 126/68; PULSE 100; RESP 18; TEMP 36; O2SAT 98
[2023-11-17 16:51] LABS: Glucose Point of Care 105 mg/dl (65-105)
[2023-11-17 19:34] VITALS: BP 138/71; PULSE 102; RESP 20; TEMP 36.4; O2SAT 99
[2023-11-17] MEDS: ATORVASTATIN 20 MG TABLET PO (20:18)
[2023-11-17] MEDS: traZODone HCL 50 MG TABLET 100 MG PO (20:18)
[2023-11-17 20:19] VITALS: PULSE 102
[2023-11-17] MEDS: PROPRANOLOL HCL 20 MG TABLET PO (20:19)
[2023-11-17 20:29] LABS: Glucose Point of Care 188 mg/dl (65-105)
[2023-11-18] VITALS (9 sets, daily range): BP systolic 127–164; BP diastolic 51–87; PULSE 77–100; RESP 12–20; TEMP 36.3–36.6; O2SAT 98–100
[2023-11-18] MEDS: HYDROcodone/acetaminophen (*CRX) 10-325 MG TABLET 1 TAB PO ×3 (00:31→20:25)
[2023-11-18] MEDS: GABAPENTIN 300 MG CAPSULE 600 MG PO ×2 (05:32→20:25)
[2023-11-18] MEDS: ONDANSETRON INJ 4 MG/2 ML VIAL IV PUSH (05:35)
[2023-11-18 07:55] LABS: Glucose Point of Care 104 mg/dl (65-105)
--- NOTE | 2023-11-18 08:33 | PC.NURSE ---
Scheduled dose of insulin aspart 10 units for 0800 held, patient is NPO until this afternoon for a procedure and has a BS of 103 at 0745.
[2023-11-18] MEDS: SODIUM CHLORIDE 0.45% 1,000 ML 100 ML IV CONT (08:37)
[2023-11-18 11:34] LABS: Glucose Point of Care 84 mg/dl (65-105)
[2023-11-18] MEDS: LACTATED RINGERS 1,000 ML 30 ML IV CONT (13:00)
--- NOTE | 2023-11-18 13:19 | WPDHPUPDATE1 ---
History and Physical Update Update Date/Time: 11/18/23 13:19 History and Physical has been reviewed, including an updated exam of the patient. There are NO changes in the patient's condition. Risks, benefits, and alternatives have been discussed and questions answered. Patient agrees to proceed with procedure.
[2023-11-18 13:22] LABS: Glucose Point of Care 84 mg/dl (65-105)
--- NOTE | 2023-11-18 13:25 | WPDANESEPPF ---
Anes - Initial Pre Proc Eval Procedure: Operation Date: 11/18/23 12:00 Proposed Procedures p Debridement Sacral Decubitus Ulcer, Application of Graft, Wound Vac Placement - Eric Roman MD Date/Time: 11/18/23 13:25 Surgeon: Cornel Mae MD Pre Op Diagnosis: UTI, Sacral ulcer Patient Data Age: 43 Gender: F Height: 1.88 m Weight: 81.1 kg Last Vital Signs Temp 36.5 C 11/18/23 03:53 Pulse 92 11/18/23 03:53 Resp 16 11/18/23 03:53 BP 127/51 L 11/18/23 03:53 Pulse Ox 100 11/18/23 03:53 O2 Del Method Room Air 11/17/23 08:40 Allergies Allergy/AdvReac Type Severity Reaction Status Date / Time azithromycin Allergy Unknown Hives Verified 11/08/23 13:27 amoxicillin AdvReac Unknown Verified 11/08/23 13:27 Home Medications Medication Instructions Recorded Confirmed Type insulin glargine 100 unit/mL (3 44 unit subcut HS 07/28/22 11/10/23 History mL) subcutaneous pen (Lantus Solostar U-100 Insulin) insulin lispro 100 unit/mL 10 unit subcut AC 07/28/22 11/10/23 History subcutaneous pen (Humalog KwikPen (U-100) Insulin) atorvastatin 20 mg tablet 20 mg PO HS 11/10/23 11/10/23 History collagenase clostridium histo. 250 1 applic topical BID 11/10/23 11/10/23 History unit/gram topical ointment (Santyl) gabapentin 600 mg tablet 600 mg PO TID 11/10/23 11/10/23 History hydrocodone 10 mg-acetaminophen 1 tablet PO Q4H PRN Pain (Scale 11/10/23 11/10/23 History 325 mg tablet Score 4-6) trazodone 100 mg tablet 100 mg PO HS 11/10/23 11/10/23 History propranolol 40 mg tablet 20 mg PO Q12H 11/17/23 11/17/23 History Laboratory Tests 11/17/23 11/17/23 11/18/23 16:47 20:27 07:33 POC Capillary Glucose 105 mg/dl 188 H mg/dl 104 mg/dl (65-105) (65-105) (65-105) 11/18/23 11/18/23 11:31 13:16 POC Capillary Glucose 84 mg/dl 84 mg/dl (65-105) (65-105) Patient hx anesthesia problems: none Family hx anesthesia problems: none Results Review: All pre-operative results and documents have been reviewed as part of the pre-operative evaluation. [facility] Past Medical History Medical History Aortic thrombus Clostridium difficile diarrhea Deep venous thrombosis Diabetic peripheral neuropathy Hyperlipidemia Neurogenic bladder Paraplegia Spinal cord stroke Type 1 diabetes mellitus Surgical History Surgical History History of aorto-femoral bypass Family History Family History Mother Acute myocardial infarction Diabetes mellitus Hypertension Father History of blood clots Social History Social History Social History: Surrogate medical decision maker: Ml Aguilar, mother. Code status: Full code. Smoking status: Former smoker Alcohol intake: never Substance use: former Substance use type: crack/cocaine Do You Feel Safe in your Home?: Yes Lack of Transportation: No Lack of Food: Never True Current Housing: I Have Housing Concerned About Future Housing: No Difficulty Paying Gas/Electric Bills: No Difficulty Paying for Meds: No Currently Unemployed: No Education: High School Diploma/GED Difficulty w/ Childcare or Family Care: No Additional living arrangements comments: Lives with spouse and children in [place]. Spiritual care concerns: No Anes - Eval Final PreProcedure Day of Procedure 11/18/23 13:25 Patient weight: normal Heart: regular rate and rhythm Lungs: clear to auscultation Airway: Mallampati scale class II Neurological: alert and oriented Last oral intake: >/= 8 hours ASA classification: IV Emergent: no Anesthetic plan: proceed Anesthesia type and monitoring: general ETT and standard monitoring Results Review: All pre-operative results and documents have been reviewed as
--- NOTE | 2023-11-18 14:03 | PM.IMPN ---
Progress Note: A&P Assessment and Plan (1) Complicated urinary tract infection: Code(s): N39.0 - Urinary tract infection, site not specified Status: Acute Assessment and Plan: Patient presents with nausea and vomiting. UPT negative. Patient has spinal cord injury and probably with neurogenic bladder requiring chronic Marcos ED visit on 10/02/23 with UCx that grew Enterobacter cloacae sensitive to meropenem ED on 11/08/23 with UCx growing Klebsiella pneumoniae that was snell resistant. UA was consistent with UTI on this admission as well. UCx (11/09) -Klebsiella pneumonia only sensitive to imipenem meropenem BCx (11/09) no growth to date CT scan shows heterogeneous geographic hypoperfusion the atrophic left kidney concerning for pyelonephritis. She was started on vancomycin and meropenem. WBC remains normal. No fevers. Marcos has been changed out since admission On 11/13 meropenem and vancomycin changed to ertapenem. Completed 7 day course on SaturdayNovember 16 (2) Pressure ulcer of sacral region: Qualifiers: Pressure injury stage: unspecified pressure injury stage Qualified Code(s): L89.159 - Pressure ulcer of sacral region, unspecified stage Code(s): L89.159 - Pressure ulcer of sacral region, unspecified stage Status: Acute Assessment and Plan: CT scan of the abdomen and pelvis showed moderate phlegmonous changes present in the presacral/perirectal location as well as posterior to the sacrum. No obvious drainable fluid collection identified. General surgery consulted and appreciate their input. Wound care consulted. Wound cultures obtained and growing Klebsiella pneumoniae pansensitive and MSSA Continue dressing changes. On 11/14/2023 meropenem and vancomycin changed to ertapenem. Plans for graft and VAC placement noted from General surgery. Care coordination consulted. planned skin graft today (3) Type 1 diabetes mellitus: Code(s): E10.9 - Type 1 diabetes mellitus without complications Status: Acute Assessment and Plan: A1c 5.7. Glucose remains almost too well controlled. Continue AccuCheks covering with sliding scale. Hypoglycemia protocol available as needed. Continue to follow. Lantus dose has been decreased (4) Elevated blood pressure reading: Code(s): R03.0 - Elevated blood-pressure reading, without diagnosis of hypertension Status: Acute Assessment and Plan: Patient with elevated blood pressure on admission. It has persistent and may be related to pain. 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 She was having paresthesias to her feet and workup revealed aortic disease requiring surgery. She had surgery in [place] in May 2023 that was complicated with spinal cord stroke resulting in paraplegia and a long complicated course. 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 Also with possible neurogenic bladder but has the sensation to void and does not appear to have had urodynamics Frequent turning. Routine skin care. Subjective Date/time seen: 11/18/23 14:03 Interval history: no overnight events, going for the graft today. no sob, chest pain reported Review of Systems Review of Systems: All systems reviewed & are unremarkable except as noted in HPI and below (Subjective) Exam Narrative: Gen - NARD Chest - CTA bilaterally, nml RR CV - RRR S1/S2 Abd - Soft, NT/ND, Back - no CVA tenderness - Marcos secured draining clear yellow urine Ext - No pedal edema Neuro - Alert and oriented. Paraplegia Psych -normal mood Skin - Warm and dry. Multiple toes with necrotic tips Objective Data Vital Signs Vital Signs: Vital Signs - 24 hr 11/17/23 19:34 11/17/23 20:19 11/18/23 03:53 Temperature 9
[2023-11-18] MEDS: ERTAPENEM 1 GM/NS 50 ML 1 GM/50 ML BAG IVPB (15:31)
[2023-11-18 16:47] LABS: Glucose Point of Care 79 mg/dl (65-105)
[2023-11-18] MEDS: fentaNYL CITRATE INJ (*CRX) 100 MCG/2 ML VIAL 25 MCG IV PUSH ×4 (16:50→17:09)
[2023-11-18] MEDS: ATORVASTATIN 20 MG TABLET PO (20:24)
[2023-11-18] MEDS: PROPRANOLOL HCL 20 MG TABLET PO (20:24)
[2023-11-18] MEDS: traZODone HCL 50 MG TABLET 100 MG PO (20:24)
[2023-11-18 21:22] LABS: Glucose Point of Care 78 mg/dl (65-105)
[2023-11-18 23:37] LABS: Glucose Point of Care 204 mg/dl (65-105)
[2023-11-19] MEDS: INSULIN GLARGINE (*BKC) 100 UNITS/ML 36 UNITS SUB-Q ×2 (00:16→21:06)
[2023-11-19] MEDS: HYDROcodone/acetaminophen (*CRX) 10-325 MG TABLET 1 TAB PO ×4 (00:16→21:01)
[2023-11-19] MEDS: ACETAMINOPHEN 325 MG TABLET 650 MG PO (04:28)
[2023-11-19 04:54] VITALS: BP 115/54; PULSE 86; RESP 16; TEMP 36.4; O2SAT 98
[2023-11-19] MEDS: GABAPENTIN 300 MG CAPSULE 600 MG PO ×3 (05:57→21:02)
[2023-11-19 08:05] LABS: Glucose Point of Care 206 mg/dl (65-105)
--- NOTE | 2023-11-19 08:41 | WPDANESPN ---
Anes - Prog Note Post-Op Date/Time: 11/19/23 08:41 Cardiovascular status: normal Respiratory status: normal Airway patency: baseline Mental status: baseline Post-Op hydration status: normal Vital Signs: Last Vital Signs Temp 36.4 C 11/19/23 04:54 Pulse 86 11/19/23 04:54 Resp 16 11/19/23 04:54 BP 115/54 L 11/19/23 04:54 Pulse Ox 98 11/19/23 04:54 O2 Del Method Room Air 11/18/23 20:00 O2 Flow Rate 10 11/18/23 16:30 Pain Score (VAS): 12/24 I/O: Intake & Output 11/18/23 11/19/23 11/19/23 23:59 07:59 15:59 Intake Total 1140 Output Total 1300 Balance 1140 -1300 Laboratory Tests 11/14/23 05:33 11/14/23 05:33 11/18/23 11/18/23 11/18/23 11:31 13:16 16:45 POC Capillary Glucose 84 84 79 11/18/23 11/18/23 11/19/23 20:24 23:34 08:01 POC Capillary Glucose 78 204 H 206 H Post-procedural complaints: none Patient Feedback: Patient satisfied with anesthetic care.
[2023-11-19 09:14] VITALS: PULSE 84
[2023-11-19] MEDS: PANTOPRAZOLE 40 MG TABLET PO (09:14)
[2023-11-19] MEDS: ENOXAPARIN 40 MG/0.4 ML SYRINGE SUB-Q (09:14)
[2023-11-19] MEDS: PROPRANOLOL HCL 20 MG TABLET PO (09:14)
[2023-11-19] MEDS: INSULIN ASPART (*BKC) 100 UNITS/ML SUB-Q (09:16)
[2023-11-19] MEDS: INSULIN ASPART (*BKC) 100 UNITS/ML 10 UNITS SUB-Q (09:16)
[2023-11-19 09:20] VITALS: O2SAT 98
--- NOTE | 2023-11-19 10:02 | P.OP_ITS ---
Procedure Note - Detailed Date of Procedure 11/18/23 Pre-op Diagnosis Stage IV sacral decubitus ulcer Post-op Diagnosis Same Procedure Performed Evaluation under anesthesia and application of Marigen xenograft and placement of wound VAC. (Graft = 21 sq cm), (Wound vax = 21 sq cm) Surgeon Eric Roman MD Anesthesia MAC Indications patient is a 43-year-old female who unfortunately had a spinal stroke and was left a paraplegic from the waist down after a prior surgical procedure. She developed a sacral decubitus ulcer after becoming paralyzed. She was admitted [facility] for a urinary tract infection and we were consult to see the sacral decubitus ulcer. The ulcer actually has good granulation tissue at the base and is very clean. She has not had adjunct treatment with grafts or wound VAC placement to help this ulcer heal faster. She presents now for placement of a Marigen xenograft and a wound vac. Findings The opening to the stage IV sacral decubitus wound is about 3cm in diameter. It is about 2cm in depth. It does tunnel for another 3 to 4 cm cephalad. The whole wound base measures 7cm in length by approximately 3cm in width. About 2cm in depth. Excellent granulation tissues noted throughout the whole base of the wound. There is no exposed bone or periosteum. No necrotic tissue was seen. Only very thin serous drainage is noted. The total area covered by the xenograft is 7x3cm which equals 21 sq cm. The wound VAC over the same area of 21 sq cm. Description of Procedure After informed consent was obtained patient brought to the operating room she was placed in the right lateral decubitus position on operating table. She was then given and general LMA anesthesia. The area the lower back and sacral area was then prepped and draped usual sterile fashion. A time-out was then performed correctly identifying the patient as well as procedure to be performed. She was given perioperative IV antibiotics. I 1st started by performing evaluation under anesthesia. The wound was irrigated out of the Betadine was washed out. I then carefully examined the whole wound bed and there was no exposure of bone or periosteum. There was good granulation tissue throughout the whole cavity. There was no necrotic tissue noted. No evidence of cellulitis. I measured the wound cavity it was possibly 7cm in vertical length by 3cm in width. Is about 1cm in depth. I then applied Marigen micro granulated xenograft to the base of the wound. This is then followed by a sheet of the same Marigen xenograft material. This was then covered with a piece of non adherent cleared barrier dressing and then on top a piece of black foam wound VAC was placed. A black foam was lateralized onto the left hip region and clear adhesive dressings were all placed. The suction pad to the wound VAC was applied to the left hip region. The area covered by the wound VAC the wound was 21 sq cm. The VAC was then attached to the suction unit and we obtained a very good seal without any leaking. The patient tolerated the procedure well no complications. All sponges, needles, and instrument counts were correct at the end procedure. EBL was _5__cc. The patient was awakened and taken to recovery in stable and satisfactory condition. Implants Marigen micro granulated xenograft and Marigen solid sheet xenograft, wound vac. Estimated Blood Loss 5 Urine Output 1,000 Drains No Packing Yes (Wound VAC placed with black sponge) Pathology None sent Complications No immediate complications Condition Stable Disposition PACU [facility] Billing Surgery - Charge Forward: Surgery Billing
--- NOTE | 2023-11-19 11:39 | PCNFU ---
Nutrition Follow-Up Complete: Increased nutrient needs related to altered skin integrity as evidenced by noted pressure injury to sacrum Goal: PO intake to remain 75% or greater Pt current nutrition is consistent carbohydrate. Nutrition recommendation: Continue with a consistent carbohydrate diet, Wilmer BID, Glucerna BID. Consider a daily MVI for wound healing. Will monitor weight status. Last recorded weight is 81.1 kg. Weight down 5.3 kg/6% x 9 days. Bowel Motility: abd WNL; BM: 11/18 Labs Reviewed: glucose 206 Meds Noted: [place], Lipitor, Novolog, Lantus, Reglan, Zofran, Protonix, Desyrel Skin: sacrum wound with wound VAC Additional Notes: Patient reports she is feeling ok, but tired. She reports a good appetite. Denies nausea, vomiting, diarrhea, constipation. She is drinking Glucerna but desires them cold and reports they occasionally come up and are room temperature. Will request fast food worker send ice. Intake: 50-100% of meals. Edema: +1 bilateral foot/ankle Monitor intake, wt, labs, skin. Follow up in 5 days.
[2023-11-19 12:02] LABS: Glucose Point of Care 87 mg/dl (65-105)
--- NOTE | 2023-11-19 14:03 | PM.IMPN ---
Progress Note: A&P Assessment and Plan (1) Complicated urinary tract infection: Code(s): N39.0 - Urinary tract infection, site not specified Status: Acute Assessment and Plan: Patient presents with nausea and vomiting. UPT negative. Patient has spinal cord injury and probably with neurogenic bladder requiring chronic [facility]cos ED visit on 10/02/23 with UCx that grew Enterobacter cloacae sensitive to meropenem ED on 11/08/23 with UCx growing Klebsiella pneumoniae that was snell resistant. UA was consistent with UTI on this admission as well. UCx (11/09) -Klebsiella pneumonia only sensitive to imipenem meropenem BCx (11/09) no growth to date CT scan shows heterogeneous geographic hypoperfusion the atrophic left kidney concerning for pyelonephritis. She was started on vancomycin and meropenem. WBC remains normal. No fevers. Marcos has been changed out since admission On 11/13 meropenem and vancomycin changed to ertapenem. Completed 7 day course on SaturdayNovember 16 (2) Pressure ulcer of sacral region: Qualifiers: Pressure injury stage: unspecified pressure injury stage Qualified Code(s): L89.159 - Pressure ulcer of sacral region, unspecified stage Code(s): L89.159 - Pressure ulcer of sacral region, unspecified stage Status: Acute Assessment and Plan: CT scan of the abdomen and pelvis showed moderate phlegmonous changes present in the presacral/perirectal location as well as posterior to the sacrum. No obvious drainable fluid collection identified. General surgery consulted and appreciate their input. Wound care consulted. Wound cultures obtained and growing Klebsiella pneumoniae pansensitive and MSSA Continue dressing changes. On 11/14/2023 meropenem and vancomycin changed to ertapenem. Plans for graft and VAC placement noted from General surgery. Care coordination consulted. Status post skin grafting 11/18/2023 now on wound VAC. Wound check as planned by stay General surgery and plan for DC after that. Wound care to start process for wound VAC approval (3) Type 1 diabetes mellitus: Code(s): E10.9 - Type 1 diabetes mellitus without complications Status: Acute Assessment and Plan: A1c 5.7. Glucose remains almost too well controlled. Continue AccuCheks covering with sliding scale. Hypoglycemia protocol available as needed. Continue to follow. Lantus dose has been decreased (4) Elevated blood pressure reading: Code(s): R03.0 - Elevated blood-pressure reading, without diagnosis of hypertension Status: Acute Assessment and Plan: Patient with elevated blood pressure on admission. It has persistent and may be related to pain. 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 She was having paresthesias to her feet and workup revealed aortic disease requiring surgery. She had surgery in [place] in May 2023 that was complicated with spinal cord stroke resulting in paraplegia and a long complicated course. She developed a sacral decubitus ulcer with osteomyelitis requiring usp IV abx via PICC line. Also with possible neurogenic bladder but has the sensation to void and does not appear to have had urodynamics Frequent turning. Routine skin care. Subjective Date/time seen: 11/19/23 14:03 Interval history: No new complaints. Doing okay. No chest pain or shortness of breath. Review of Systems Review of Systems: All systems reviewed & are unremarkable except as noted in HPI and below (Subjective) Exam Narrative: Gen - NARD Chest - CTA bilaterally, nml RR CV - RRR S1/S2 Abd - Soft, NT/ND, Back - no CVA tenderness - Marcos secured draining clear yellow urine Ext - No pedal edema Neuro - Alert and oriented. Paraplegia Psych -normal mood Skin - Warm and dry. Multiple toes with
--- NOTE | 2023-11-19 15:39 | PM.PNGS ---
Progress Note: A&P Assessment and Plan (1) Pressure ulcer of sacral region: Qualifiers: Pressure injury stage: unspecified pressure injury stage Qualified Code(s): L89.159 - Pressure ulcer of sacral region, unspecified stage Code(s): L89.159 - Pressure ulcer of sacral region, unspecified stage Status: Acute Assessment and Plan: Sacral decubitus ulcer now status post Marigen xenograft application and wound vac placement. The wound vac appears to be functioning well and we will plan on keeping this in place for the next few days. Initial dressing change will be no sooner than Saturday or by Dr. Roman. CC will work on home wound vac approval and home health is being set up. Plan I have discussed the patient's case and plan of care with Dr. Roman. Subjective Subjective Date/Time Seen: 11/19/23 15:39 Post Op day: 1 (Evaluation under anesthesia and application of Marigen xenograft and placement of wound VAC) Interval history: Patient seen today on medical floor. She reports feeling tired, but no other complaints at this time. No issues with wound vac overnight. Exam Narrative: Sacral wound with wound vac in place and functioning well Objective Data Vital Signs Vital Signs: Vital Signs - 24 hr 11/18/23 16:30 11/18/23 16:45 11/18/23 17:00 Temperature 97.9 F Pulse Rate 77 100 94 Respiratory Rate 13 19 12 Blood Pressure 128/75 149/87 H 156/78 H Pulse Oximetry 100 100 100 Oxygen Delivery Simple Face Mask Room Air Room Air Oxygen Flow Rate 10 11/18/23 17:15 11/18/23 17:38 11/18/23 20:21 Temperature 97.6 F 97.4 F L Pulse Rate 87 88 95 Respiratory Rate 12 16 20 Blood Pressure 148/72 H 161/60 H 164/66 H Pulse Oximetry 99 99 98 Oxygen Delivery Room Air Oxygen Flow Rate 11/18/23 20:24 11/18/23 20:00 11/19/23 04:54 Temperature 97.6 F Pulse Rate 95 86 Respiratory Rate 16 Blood Pressure 115/54 L Pulse Oximetry 98 Oxygen Delivery Room Air Oxygen Flow Rate 11/19/23 09:14 Temperature Pulse Rate 84 Respiratory Rate Blood Pressure Pulse Oximetry Oxygen Delivery Oxygen Flow Rate Intake/Output Intake/Output: Intake & Output 11/16/23 11/17/23 11/18/2311/18/24 23:59 23:59 23:59 23:59 Intake Total 1700 1150 1140 720 Output Total 3400 2750 1900 2300 Balance -1700 -1600 -760 -9514 Meds/Results Medications: Active Medications Generic Name Dose Route Start Last Admin Trade Name Freq PRN Reason Stop Dose Admin Acetaminophen 650 mg 11/10/23 22:25 11/19/23 04:28 Acetaminophen 325 Mg Tablet PO 650 mg Q6H PRN Administration Mild Pain (1-3) or Fever Hydrocodone Bitart/Acetaminophen 1 tab 11/10/23 22:25 11/19/23 10:57 Hydrocodone/Acetaminophen (*Crx) 10-325 Mg Tablet PO 1 tab Q4H PRN Administration Pain (Scale Score 4-6) Atorvastatin Calcium 20 mg 11/11/23 21:00 11/18/23 20:24 Atorvastatin 20 Mg Tablet PO 20 mg HS SUSANNE Administration Dextrose 12.5 gm 11/10/23 22:25 Dextrose 50% 25 Gm/50 Ml Syringe IV PUSH PRN PRN Hypoglycemia Protocol Enoxaparin Sodium 40 mg 11/11/23 09:00 11/19/23 09:14 Enoxaparin 40 Mg/0.4 Ml Syringe SUB-Q 40 mg DAILY SUSANNE Administration Fentanyl Citrate 25 mcg 11/18/23 13:54 11/18/23 17:09 Fentanyl Citrate Inj (*Crx) 100 Mcg/2 Ml Vial IV PUSH 25 mcg Q2M PRN Administration Pain Gabapentin 600 mg 11/10/23 22:00 11/19/23 14:23 Gabapentin 300 Mg Capsule PO 600 mg Q8HR SUSANNE Administration Glucagon 1 mg 11/10/23 22:25 Glucagon For Inj 1 Mg Vial IM PRN PRN Hypoglycemia Protocol Glucose 15 gm 11/10/23 22:25 Glucose Oral Gel 15 Gm Of Glucse In 37.5 Gm Tube PO PRN PRN Hypoglycemia Protocol Dextrose 1,000 mls @ 100 mls/hr 11/10/23 22:25 Dextrose 5% 1,000 Ml IVPB PRN PRN Hypoglycemia Protocol Insulin Aspart 10 units 11/11/23 08:00 11/19/23 12:15
[2023-11-19 17:13] LABS: Glucose Point of Care 135 mg/dl (65-105)
--- NOTE | 2023-11-19 17:37 | PC.NURSE ---
Patient stated she is not hungry for dinner and is not eating. Scheduled insulin aspart (10 units) being held for 1700 administration.
[2023-11-19] MEDS: ATORVASTATIN 20 MG TABLET PO (21:02)
[2023-11-19] MEDS: traZODone HCL 50 MG TABLET 100 MG PO (21:02)
[2023-11-19 21:25] VITALS: BP 95/58; PULSE 80; RESP 18; TEMP 36.4; O2SAT 97
[2023-11-19 21:26] LABS: Glucose Point of Care 128 mg/dl (65-105)
[2023-11-20 03:45] VITALS: BP 136/61; PULSE 92; RESP 16; TEMP 36.4; O2SAT 99
[2023-11-20] MEDS: HYDROcodone/acetaminophen (*CRX) 10-325 MG TABLET 1 TAB PO ×4 (05:03→22:08)
[2023-11-20] MEDS: GABAPENTIN 300 MG CAPSULE 600 MG PO ×3 (05:03→22:02)
[2023-11-20] MEDS: METOCLOPRAMIDE HCL INJ 10 MG/2 ML VIAL 5 MG IV PUSH ×2 (05:07→20:26)
[2023-11-20 08:22] LABS: Glucose Point of Care 112 mg/dl (65-105)
[2023-11-20 08:59] VITALS: PULSE 96
[2023-11-20] MEDS: PROPRANOLOL HCL 20 MG TABLET PO ×2 (08:59→20:26)
[2023-11-20] MEDS: ENOXAPARIN 40 MG/0.4 ML SYRINGE SUB-Q (08:59)
[2023-11-20 09:00] VITALS: O2SAT 99
[2023-11-20] MEDS: PANTOPRAZOLE 40 MG TABLET PO (09:00)
[2023-11-20] MEDS: INSULIN ASPART (*BKC) 100 UNITS/ML 10 UNITS SUB-Q ×2 (09:01→17:13)
--- NOTE | 2023-11-20 11:05 | PM.IMPN ---
Progress Note: A&P Assessment and Plan (1) Complicated urinary tract infection: Code(s): N39.0 - Urinary tract infection, site not specified Status: Acute Assessment and Plan: Patient presents with nausea and vomiting. UPT negative. Patient has spinal cord injury and probably with neurogenic bladder requiring chronic [facility] ED visit on 10/02/23 with UCx that grew Enterobacter cloacae sensitive to meropenem ED on 11/08/23 with UCx growing Klebsiella pneumoniae that was snell resistant. UA was consistent with UTI on this admission as well. UCx (11/09) -Klebsiella pneumonia only sensitive to imipenem meropenem BCx (11/09) negative CT scan shows heterogeneous geographic hypoperfusion the atrophic left kidney concerning for pyelonephritis. She was started on vancomycin and meropenem. WBC was 12K but normalized quickly. No fevers. Marcos has been changed out since admission On 11/13 meropenem and vancomycin changed to ertapenem. She completed 7 day course on SaturdayNovember 16 (2) Pressure ulcer of sacral region: Qualifiers: Pressure injury stage: unspecified pressure injury stage Qualified Code(s): L89.159 - Pressure ulcer of sacral region, unspecified stage Code(s): L89.159 - Pressure ulcer of sacral region, unspecified stage Status: Acute Assessment and Plan: CT scan of the abdomen and pelvis showed moderate phlegmonous changes present in the presacral/perirectal location as well as posterior to the sacrum. No obvious drainable fluid collection identified. General surgery consulted and appreciate their input. Wound care consulted. Wound cultures obtained and growing Klebsiella pneumoniae pansensitive and MSSA On 11/14/2023 meropenem and vancomycin changed to ertapenem. Plans for graft and VAC placement noted from General surgery. Care coordination consulted. Status post skin grafting 11/18/2023 now on wound VAC. Wound check as planned by General surgery and plan for DC after that. Process for wound VAC approval started (3) Type 1 diabetes mellitus: Code(s): E10.9 - Type 1 diabetes mellitus without complications Status: Acute Assessment and Plan: A1c 5.7. Glucose remains almost too well controlled. Continue AccuCheks covering with sliding scale. Hypoglycemia protocol available as needed. Continue to follow. Continue lower Lantus dose for now (4) Elevated blood pressure reading: Code(s): R03.0 - Elevated blood-pressure reading, without diagnosis of hypertension Status: Acute Assessment and Plan: Patient with elevated blood pressure on admission. It has persistent and may be related to pain. 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 She was having paresthesias to her feet and workup revealed aortic disease requiring surgery. She had surgery in [place] in May 2023 that was complicated with spinal cord stroke resulting in paraplegia and a long complicated course. She developed a sacral decubitus ulcer with osteomyelitis requiring watermelon inspector IV abx via PICC line. Also with possible neurogenic bladder but has the sensation to void and does not appear to have had urodynamics Frequent turning. Routine skin care. 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 Assuming care. Chart reviewed. She slept well last night. Does complain of some soreness in the low back and sacral area. Eating well. Complains of slight nausea. No chest pain, shortness of breath or cough. Does complain that her right foot feels swollen.
[2023-11-20 12:08] LABS: Glucose Point of Care 105 mg/dl (65-105)
--- NOTE | 2023-11-20 16:20 | PM.PNGS ---
Progress Note: A&P Assessment and Plan (1) Pressure ulcer of sacral region: Qualifiers: Pressure injury stage: unspecified pressure injury stage Qualified Code(s): L89.159 - Pressure ulcer of sacral region, unspecified stage Code(s): L89.159 - Pressure ulcer of sacral region, unspecified stage Status: Acute Assessment and Plan: Sacral decubitus ulcer now status post Marigen xenograft application and wound vac placement. We will plan on changing the wound VAC tomorrow at the bedside with the wound care nurses. Home health has been approved, but still waiting for home wound VAC approval. Plan I have discussed the patient's case and plan of care with Dr. Roman. Subjective Subjective Date/Time Seen: 11/20/23 16:20 Patient reports: no new complaints Interval history: Patient did well overnight and today. No specific complaints at this time. Per nursing, no issues with the wound VAC. Exam Narrative: Sacral wound with wound vac in place and functioning well Objective Data Vital Signs Vital Signs: Vital Signs - 24 hr 11/19/23 20:00 11/19/23 21:25 11/20/23 03:45 Temperature 97.6 F 97.6 F Pulse Rate 80 92 Respiratory Rate 18 16 Blood Pressure 95/58 L 136/61 Pulse Oximetry 97 99 Oxygen Delivery Room Air 11/20/23 08:59 11/20/23 09:00 Temperature Pulse Rate 96 Respiratory Rate Blood Pressure Pulse Oximetry 99 Oxygen Delivery Room Air Intake/Output Intake/Output: Intake & Output 11/17/23 11/18/23 11/19/23 11/20/23 23:59 23:59 23:59 23:59 Intake Total 1150 1140 1460 464 Output Total 2750 1900 3100 850 Balance -1600 -760 -1640 -386 Meds/Results Medications: Active Medications Generic Name Dose Route Start Last Admin Trade Name Freq PRN Reason Stop Dose Admin Acetaminophen 650 mg 11/10/23 22:25 11/19/23 04:28 Acetaminophen 325 Mg Tablet PO 650 mg Q6H PRN Administration Mild Pain (1-3) or Fever Hydrocodone Bitart/Acetaminophen 1 tab 11/10/23 22:25 11/20/23 13:25 Hydrocodone/Acetaminophen (*Crx) 10-325 Mg Tablet PO 1 tab Q4H PRN Administration Pain (Scale Score 4-6) Atorvastatin Calcium 20 mg 11/11/23 21:00 11/19/23 21:02 Atorvastatin 20 Mg Tablet PO 20 mg HS SUSANNE Administration Dextrose 12.5 gm 11/10/23 22:25 Dextrose 50% 25 Gm/50 Ml Syringe IV PUSH PRN PRN Hypoglycemia Protocol Enoxaparin Sodium 40 mg 11/11/23 09:00 11/20/23 08:59 Enoxaparin 40 Mg/0.4 Ml Syringe SUB-Q 40 mg DAILY SUSANNE Administration Fentanyl Citrate 25 mcg 11/18/23 13:54 11/18/23 17:09 Fentanyl Citrate Inj (*Crx) 100 Mcg/2 Ml Vial IV PUSH 25 mcg Q2M PRN Administration Pain Gabapentin 600 mg 11/10/23 22:00 11/20/23 13:26 Gabapentin 300 Mg Capsule PO 600 mg Q8HR SUSANNE Administration Glucagon 1 mg 11/10/23 22:25 Glucagon For Inj 1 Mg Vial IM PRN PRN Hypoglycemia Protocol Glucose 15 gm 11/10/23 22:25 Glucose Oral Gel 15 Gm Of Glucse In 37.5 Gm Tube PO PRN PRN Hypoglycemia Protocol Dextrose 1,000 mls @ 100 mls/hr 11/10/23 22:25 Dextrose 5% 1,000 Ml IVPB PRN PRN Hypoglycemia Protocol Insulin Aspart 10 units 11/11/23 08:00 11/20/23 12:24 Insulin Aspart (*Bkc) 100 Units/Ml SUB-Q Not Given TIDWM SUSANNE Insulin Aspart 3 - 6 units 11/11/23 08:00 11/20/23 12:24 Insulin Aspart (*Bkc) 100 Units/Ml SUB-Q Not Given TIDWM [facility] Protocol Insulin Aspart 1 - 3 units 11/11/23 21:00 11/19/23 21:10 Insulin Aspart (*Bkc) 100 Units/Ml SUB-Q Not Given HS [facility] Protocol Insulin Glargine 36 units 11/12/23 21:00 11/19/23 21:06 Insulin Glargine (*Bkc) 100 Units/Ml SUB-Q 36 units HS SUSANNE Administration Metoclopramide HCl 5 mg 11/15/23 17:24 11/20/23 05:07 Metoclopramide Hcl Inj 10 Mg/2 Ml Vial IV PUSH 5 mg Q6HR PRN Administration Nausea Miscellaneous Information 0 each 0
[2023-11-20 17:02] LABS: Glucose Point of Care 206 mg/dl (65-105)
[2023-11-20] MEDS: INSULIN ASPART (*BKC) 100 UNITS/ML SUB-Q (17:14)
[2023-11-20 20:26] VITALS: PULSE 94
[2023-11-20] MEDS: traZODone HCL 50 MG TABLET 100 MG PO (20:26)
[2023-11-20] MEDS: ATORVASTATIN 20 MG TABLET PO (20:26)
[2023-11-20 21:10] VITALS: BP 129/55; PULSE 99; RESP 18; TEMP 36.8; O2SAT 96
[2023-11-20 22:42] LABS: Glucose Point of Care 90 mg/dl (65-105)
[2023-11-20 23:14] LABS: Glucose Point of Care 114 mg/dl (65-105)
[2023-11-20] MEDS: ONDANSETRON INJ 4 MG/2 ML VIAL IV PUSH (23:56)
[2023-11-21 04:34] VITALS: BP 127/66; PULSE 95; RESP 18; TEMP 36.8; O2SAT 94
[2023-11-21] MEDS: GABAPENTIN 300 MG CAPSULE 600 MG PO ×2 (05:16→14:13)
[2023-11-21] MEDS: METOCLOPRAMIDE HCL INJ 10 MG/2 ML VIAL 5 MG IV PUSH (05:16)
[2023-11-21 05:20] LABS: Basophils Percent Auto 0.4 % (0.2-1.2); Eosinophils Absolute Auto 0.3 K/mm3 (0-0.3); Eosinophils Percent Auto 2.6 % (0-4.4); Hematocrit 30.2 % (37.0-47.0); Hemoglobin 9.7 g/dL (12.0-15.0); Immature Granulocyte Absolute 0.03 K/mm3 (0.00-0.031); Immature Granulocyte Percent A 0.3 % (0-0.5); Lymphocytes Absolute Auto 2.06 K/mm3 (0.9-3.2); Lymphocytes Percent Auto 20.5 % (18.3-44.2); Mean Corpuscular HGB Conc 32.1 g/dl (32-36); Mean Corpuscular Hemoglobin 29.1 pg (26-34); Mean Corpuscular Volume 90.7 fl (80-100); Mean Platelet Volume 10.4 fl (7.4-10.4); Monocytes Absolute Auto 0.6 K/mm3 (0.1-0.6); Monocytes Percent Auto 6.1 % (2.6-8.5); Neutrophils Percent Auto 70.1 % (45.5-73.1); Platelet Count Result 195 k/mm3 (150-375); Red Blood Count 3.33 M/mm3 (4.2-5.4); Red Cell Distribution Width 15.1 % (11.5-14.5)
[2023-11-21 05:31] LABS: Albumin Level 3.5 g/dL (3.5-5.1); Anion Gap 8 mmol/L (4-12); Blood Urea Nitrogen 20 mg/dL (7-17); Calcium 10.6 mg/dL (8.4-10.2); Carbon Dioxide 22 mmol/L (22-30); Chloride 105 mmol/L (98-107); Estimated CRCL calculation 68 ml/min; Estimated Glomerular Filt Rate 50; Glucose 143 mg/dL (65-110); Magnesium 1.8 mg/dL (1.6-2.3); Phosphorus 3.4 mg/dL (2.5-4.5); Potassium 4.4 mmol/L (3.4-5.0); Sodium 135 mmol/L (137-145)
[2023-11-21] MEDS: PANTOPRAZOLE 40 MG TABLET PO (08:01)
[2023-11-21] MEDS: ENOXAPARIN 40 MG/0.4 ML SYRINGE SUB-Q (08:02)
[2023-11-21] MEDS: ONDANSETRON INJ 4 MG/2 ML VIAL IV PUSH (08:05)
[2023-11-21 08:32] LABS: Glucose Point of Care 102 mg/dl (65-105)
[2023-11-21] MEDS: HYDROcodone/acetaminophen (*CRX) 10-325 MG TABLET 1 TAB PO (09:32)
[2023-11-21 09:35] VITALS: PULSE 95
[2023-11-21] MEDS: PROPRANOLOL HCL 20 MG TABLET PO (09:35)
--- NOTE | 2023-11-21 11:06 | PM.PNGS ---
Progress Note: A&P Assessment and Plan (1) Pressure ulcer of sacral region: Qualifiers: Pressure injury stage: unspecified pressure injury stage Qualified Code(s): L89.159 - Pressure ulcer of sacral region, unspecified stage Code(s): L89.159 - Pressure ulcer of sacral region, unspecified stage Status: Acute Assessment and Plan: Sacral decubitus ulcer now status post Marigen xenograft application and wound vac placement. Wound vac changed today with Dr. Roman. Wound appears clean and we plan to continue wound vac therapy on discharge. Still waiting for home wound vac approval. HH is already set up. We will have the patient come back to f/u with Dr. Roman next week in the wound clinic. Her first two wound vac changes (Saturday and Saturday) will be scheduled in the wound clinic and then home health can continue wound vac changes after that if she is healing well. Okay from a surgical standpoint to discharge the patient when wound vac is approved. Plan I have discussed the patient's case and plan of care with Dr. Roman. Subjective Subjective Date/Time Seen: 11/21/23 11:06 Post Op day: 6 (Evaluation under anesthesia and application of Marigen xenograft and placement of wound VAC) Patient reports: no new complaints and nausea Interval history: Patient was seen this morning with Dr. Roman and wound care nurses. She reports 5-6 episodes of loose stools last night. She has some nausea this morning, but no vomiting. No other complaints at this time. Exam Const: General: comfortable and no acute distress Orientation/consciousness: patient oriented x3 GI: Other: Wound vac removed. Sacral wound appears clean (see wound care note for measurements) with no necrotic tissue and no purulent drainage. Tunneling cephalad. Wound vac applied Objective Data Vital Signs Vital Signs: Vital Signs - 24 hr 11/20/23 20:26 11/20/23 21:10 11/20/23 20:00 Temperature 98.2 F Pulse Rate 94 99 Respiratory Rate 18 Blood Pressure 129/55 L Pulse Oximetry 96 Oxygen Delivery Room Air 11/21/23 04:34 11/21/23 09:35 Temperature 98.3 F Pulse Rate 95 95 Respiratory Rate 18 Blood Pressure 127/66 Pulse Oximetry 94 Oxygen Delivery Intake/Output Intake/Output: Intake & Output 11/18/23 11/19/23 11/20/23 11/21/23 23:59 23:59 23:59 23:59 Intake Total 1140 1460 2204 890 Output Total 1900 3100 2250 1900 [facility] -760 -1640 -46 -1010 Meds/Results Medications: Active Medications Generic Name Dose Route Start Last Admin Trade Name Freq PRN Reason Stop Dose Admin Acetaminophen 650 mg 11/21/23 10:00 Acetaminophen 325 Mg Tablet PO Q6H PRN Mild Pain (1-5) Or Fever Hydrocodone Bitart/Acetaminophen 1 tab 11/21/23 10:00 Hydrocodone/Acetaminophen (*Crx) 10-325 Mg Tablet PO Q6H PRN Pain Rated 6 or Greater Atorvastatin Calcium 20 mg 11/11/23 21:00 11/20/23 20:26 Atorvastatin 20 Mg Tablet PO 20 mg HS SUSANNE Administration Dextrose 12.5 gm 11/10/23 22:25 Dextrose 50% 25 Gm/50 Ml Syringe IV PUSH PRN PRN Hypoglycemia Protocol Enoxaparin Sodium 40 mg 11/11/23 09:00 11/21/23 08:02 Enoxaparin 40 Mg/0.4 Ml Syringe SUB-Q 40 mg DAILY SUSANNE Administration Gabapentin 600 mg 11/10/23 22:00 11/21/23 05:16 Gabapentin 300 Mg Capsule PO 600 mg Q8HR SUSANNE Administration Glucagon 1 mg 11/10/23 22:25 Glucagon For Inj 1 Mg Vial IM PRN PRN Hypoglycemia Protocol Glucose 15 gm 11/10/23 22:25 Glucose Oral Gel 15 Gm Of Glucse In 37.5 Gm Tube PO PRN PRN Hypoglycemia Protocol Dextrose 1,000 mls @ 100 mls/hr 11/10/23 22:25 Dextrose 5% 1,000 Ml IVPB PRN PRN Hypoglycemia Protocol Insulin Aspart 10 units 11/11/23 08:00 11/21/23 09:39 Insulin Aspart (*Bkc) 100 Units/Ml SUB-Q Not Given TIDWM SUSANNE Insulin Aspart 3 - 6 units 11/11/23 08:00 11/21/23 09:35 Insulin Aspart (*Bkc
[2023-11-21 11:51] LABS: Glucose Point of Care 115 mg/dl (65-105)
--- NOTE | 2023-11-21 13:31 | PM.IMPN ---
Progress Note: A&P Assessment and Plan (1) Complicated urinary tract infection: Code(s): N39.0 - Urinary tract infection, site not specified Status: Acute Assessment and Plan: Patient presents with nausea and vomiting. UPT negative. Patient has spinal cord injury and probably with neurogenic bladder requiring chronic Marcos ED visit on 10/02/23 with UCx that grew Enterobacter cloacae sensitive to meropenem ED on 11/08/23 with UCx growing Klebsiella pneumoniae that was snell resistant. UA was consistent with UTI on this admission as well. UCx (11/09) -Klebsiella pneumonia only sensitive to imipenem meropenem BCx (11/09) negative CT scan shows heterogeneous geographic hypoperfusion the atrophic left kidney concerning for pyelonephritis. She was started on vancomycin and meropenem. WBC was 12K but normalized quickly. No fevers. Marcos has been changed out since admission On 11/13 meropenem and vancomycin changed to ertapenem. She completed 7 day course on SaturdayNovember 16 Abd pain with diarrhea but doubt CDiff since formed stools. Abd pain out of proportion to exam. Follow (2) Pressure ulcer of sacral region: Qualifiers: Pressure injury stage: unspecified pressure injury stage Qualified Code(s): L89.159 - Pressure ulcer of sacral region, unspecified stage Code(s): L89.159 - Pressure ulcer of sacral region, unspecified stage Status: Acute Assessment and Plan: CT scan of the abdomen and pelvis showed moderate phlegmonous changes present in the presacral/perirectal location as well as posterior to the sacrum. No obvious drainable fluid collection identified. General surgery consulted and appreciate their input. Wound care consulted. Wound cultures obtained and growing Klebsiella pneumoniae pansensitive and MSSA On 11/14/2023 meropenem and vancomycin changed to ertapenem. Plans for graft and VAC placement noted from General surgery. Care coordination consulted. Status post skin grafting 11/18/2023 now on wound VAC. General surgery following and appreciate their input. Plan home with wound VAC once this is approved (3) Type 1 diabetes mellitus: Code(s): E10.9 - Type 1 diabetes mellitus without complications Status: Acute Assessment and Plan: A1c 5.7. Glucose better with occasional value at 200 Continue AccuCheks covering with sliding scale. Hypoglycemia protocol available as needed. Continue to follow. Continue lower Lantus dose (4) Elevated blood pressure reading: Code(s): R03.0 - Elevated blood-pressure reading, without diagnosis of hypertension Status: Acute Assessment and Plan: Patient with elevated blood pressure on admission. Improved since. 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 She was having paresthesias to her feet and workup revealed aortic disease requiring surgery. She had surgery in [place] in May 2023 that was complicated with spinal cord stroke resulting in paraplegia and a long complicated course. She developed a sacral decubitus ulcer with osteomyelitis requiring penitentiary IV abx via PICC line. Also with possible neurogenic bladder but has the sensation to void and does not appear to have had urodynamics Frequent turning. Routine skin care. 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 Complains of nausea this morning. Also with diarrhea but staff states soft, brown and mostly formed. Patient also with crampy abd pain. Tolerating oral intake. No CP or cough Exam Narrative: AF 97.3 127/66 95 18
[2023-11-21 14:40] VITALS: BP 148/75; PULSE 75; RESP 18; TEMP 37; O2SAT 100
[2023-11-21 17:31] LABS: Glucose Point of Care 126 mg/dl (65-105)
--- NOTE | 2023-11-21 17:58 | PM.DS ---
DS: Admitting Diagnosis Discharge Date 11/21/23 Admitting Diagnosis Nausea and vomiting DS: Discharge Diagnosis Discharge Diagnosis (1) Complicated urinary tract infection: Code(s): N39.0 - Urinary tract infection, site not specified Status: Acute (2) Pressure ulcer of sacral region: Qualifiers: Pressure injury stage: unspecified pressure injury stage Qualified Code(s): L89.159 - Pressure ulcer of sacral region, unspecified stage Code(s): L89.159 - Pressure ulcer of sacral region, unspecified stage Status: Acute (3) Type 1 diabetes mellitus: Code(s): E10.9 - Type 1 diabetes mellitus without complications Status: Acute (4) Elevated blood pressure reading: Code(s): R03.0 - Elevated blood-pressure reading, without diagnosis of hypertension Status: Acute (5) Paraplegia: Code(s): G82.20 - Paraplegia, unspecified Status: Acute DS: Summary Hospital Course Reason for hospitalization: 43yo female with 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 Hospital Course: Patient presented with nausea and vomiting. UPT negative. 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 She was having paresthesias to her feet and workup revealed aortic disease requiring surgery which she had in [place] in May 2023 that was complicated with spinal cord stroke resulting in paraplegia and a long complicated course. She developed a sacral decubitus ulcer with osteomyelitis requiring longterm IV abx via PICC line. Also with possible neurogenic bladder but has the sensation to void and does not appear to have had urodynamics yet. Prior cultures reviewed showing she has had resistant strains. UA on admission was consistent with UTI. UCx (11/09) grew Klebsiella pneumonia only sensitive to imipenem and meropenem. BCx (11/09) negative. CT scan shows heterogeneous geographic hypoperfusion the atrophic left kidney concerning for pyelonephritis. She was started on vancomycin and meropenem on admission. WBC was 12K but normalized quickly. No fevers. Marcos was changed out. Abx changed to ertapenem and she completed [address] scan of the abdomen and pelvis also showed moderate phlegmonous changes present in the presacral/perirectal location as well as posterior to the sacrum. No obvious drainable fluid collection was identified. General surgery was consulted and appreciate their input. Wound care consulted. Wound cultures obtained and growing Klebsiella pneumoniae pansensitive and MSSA. Status post skin grafting 11/18/2023 and wound VAC apply. Wound vac approved for home. Patient has Type 1 diabetes mellitus. A1c 5.7. Glucose was low-normal so lantus dose was decreased. She had paramenters on her meal time insulin and she rarely received a dose. She was monitored with AccuCheks covering with sliding scale. Hypoglycemia protocol was available as needed. Wound vac changed today. Wound appeared clean. Patient is set up with home health. HH is already set up. Patient to follow up next week in the wound clinic. She overall did well and was able to be discharged on 11/21/23. Plan to have her followup with urology after discharge for urodynamics. Status at Discharge Cognitive/behavioral status at discharge: stable Time Spent with Patient Time attestation: Total time spent providing and/or coordinating discharge services: 35 minutes Time spent: Greater than 30 minutes Exam Narrative: AF 97.3 127/66 95 18 94% ra Gen - NARD Chest - CTA bilaterally, nml RR CV - RRR S1/S2 Abd - soft, diffuse tenderness but no guarding. +BS - Marcos secured draining clear yellow urine Ext - No pedal edema Neuro - Alert and oriented. Paraplegia Psych -normal mood. patient becomes tearful with abd exam despite minimal palpation Skin - Warm and dry. Multiple toes
== END 2023-11-21 19:27 | disposition home health service (06) | DRG 580 ==
LOC: ANHED 13:20 → ANH3MED 18:50
PROVIDERS: General Practice; Physician Assistant; Surgery; Admitting Provider Family Medicine; Emergency Provider Student in an Organized Health Care Education/Training Program; PCP Physician Assistant; Visit Provider Internal Medicine
PROC: 0JU Subcutaneous Tissue and Fascia, Supplement (ICD-10-PCS; principal; 2023-11-18 12:00)
DX: L89.154 Pressure ulcer of sacral region, stage 4 (principal); G82.20 Paraplegia, unspecified; T83.511A Infection and inflammatory reaction due to indwelling urethral catheter, initial encounter; Z16.12 Extended spectrum beta lactamase (ESBL) resistance; N39.0 Urinary tract infection, site not specified; B95.61 Methicillin susceptible Staphylococcus aureus infection as the cause of diseases classified elsewhere; B96.1 Klebsiella pneumoniae [K. pneumoniae] as the cause of diseases classified elsewhere; E10.42 Type 1 diabetes mellitus with diabetic polyneuropathy; E78.5 Hyperlipidemia, unspecified; N31.9 Neuromuscular dysfunction of bladder, unspecified; Z95.1 Presence of aortocoronary bypass graft; Z79.4 Long term (current) use of insulin; Z20.822 Contact with and (suspected) exposure to COVID-19; Z86.718 Personal history of other venous thrombosis and embolism; Z87.891 Personal history of nicotine dependence
CPT/HCPCS: 36415; 74177; 80048; 80053; 80069; 80202; 80307; 81001; 81025; 82948; 83036; 83605; 83690; 83735; 84145; 85025; 85027; 87040; 87070; 87077; 87086; 87088; 87181; 87186; 87205; 87637; 96374; 96375; 99284; 99285; A9270; J1335; J1650; J1815; J1836; J2185; J2270; J2371; J2405; J2704; J2765; J3010; J3370; J7030; J7120; Q4158; Q9967

== ENCOUNTER 2023-11-28 13:37 | Observation (INO) | payer OTHER, MEDICAID, SELFPAY ==
--- NOTE | ~2023-11-28 | XR_ITS ---
EXAMINATION: XR chest 2V 11/28/2023 15:00 INDICATION: Sepsis PROCEDURE: 2 view chest COMPARISON: 02/18/2023 FINDINGS: The lungs are clear. Elevated right diaphragm. The cardiomediastinal silhouette is within n ormal limits. There are no pleural effusions. There is no pneumothorax suspected. IMPRESSION: 1: NO ACUTE CARDIOPULMONARY DISEASE. Reviewed, dictated and finalized at location B.
--- NOTE | ~2023-11-28 | CT_ITS ---
CT abdomen pelvis wo con Ordering provider: Alexandra Goldman APRN History: 43 years Female with . CVA pain/UTI/sepsis . Comparison: May: 12/05/2023 Technique: CT abdomen and pelvis without IV and without oral contrast. Radiation reduction technique utilized. DLP 574.9 mGy Findings: VISUALIZED LOWER CHEST: Normal. Small soft tissue density seen anterior to the heart adjacent to the pericardium which may be loculated pericardial effusion which measures 4 x 1.7 cm. UPPER ABDOMINAL ORGANS: Liver: Hepatomegaly Gallbladder: Normal. Spleen: Normal. Stomach/duodenum: Normal. Pancreas: Normal. Adrenals: Normal. Kidneys: Atrophic left kidney. PELVIC ORGANS: The bladder is normal. Marcos's catheter is seen in the bladder. Uterus is normal. BOWEL AND MESENTERY: Colon: Fat stranding in the perirectal area with 2 small hypoechoic density areas which may be small abscesses measuring 1.4 and 1.6 cm.. No evidence of appendicitis. Small Bowel: Normal. No obstruction. Peritoneum/mesentery: No free air or free fluid. No mesenteric lymphadenopathy. RETROPERITONEUM: Chart seen adjacent to the distal aorta and extending to the femoral arteries. Stent is seen in the l eft iliac artery. Mild atheromatous disease of the abdominal aorta. No retroperitoneal lymphadenopat hy. Cervix small para-aortic lymph nodes. MUSCULOSKELETAL: Superficial soft tissues: Fat stranding in these subcutaneous tissues of the buttocks suggestive of e rosita or inflammatory changes. On outside is seen also in the left buttock. Otherwise, The superficial soft tissues are normal. Bones: Age appropriate degenerative changes of the spine. IMPRESSION: 1. Tiny abscesses in the perirectal area with inflammatory changes. 2. Ulcer in the right buttock adjacent to the sacrum. 3. Other appearances are unchanged from previous examination. Reviewed, dictated and finalized at location A.
[2023-11-28 13:32] VITALS: BP 127/86; PULSE 97; RESP 15; TEMP 36.6; O2SAT 100
[2023-11-28 14:32] LABS: Appearance Urine Turbid (Clear); Bacteria Urine None Seen /hpf; Bilirubin Urine Negative (Negative); Blood Urine Non-Hemolyzed Trace (Negative); Color Urine Yellow (Yellow); Glucose Urine UA Negative (Negative); Ketones Urine Negative (Negative); Leukocyte Esterase Ur 1+ LEU/UL (Negative); Need Manual Microscopic Reviewed; Nitrate Urine Negative (Negative); Non Pathogenic Casts 0-2; Protein Urine Trace mg/dL (Negative); RBC Urine 21-50 /hpf (0-2); Specific Grav Ur 1.013 (1.001-1.035); Squamous Epithelial Cell Urine Occasional /hpf (Few); pH Urine 8.5 (5.0-9.0)
--- NOTE | 2023-11-28 14:32 | ED.FEMALEGU ---
HPI - Female Genitourinary General Chief complaint: Urogenital-Female Stated complaint: UTI Time Seen by Provider: 11/28/23 14:12 History of Present Illness HPI Narrative: Patient is a 43-year-old female with history of type 1 diabetes, paraplegia following aortic bypass, diabetic peripheral neuropathy, hyperlipidemia, recurrent urinary tract infections here with urinary symptoms x3 days. Patient states that over the last 2-3 days she has had flank pain, chills, sweating. she notes a history of frequent UTIs as well as sepsis. She has a known history of multidrug resistant UTIs in the past. She has not felt a fever. She does have a wound VAC in place, has been set up with outpatient wound care and management of this wound VAC which is supposed to start next Saturday. She notes she has had a burning pain sensation over the site of her sacral ulcer which has been present since last admission and application of wound VAC. Related Data Home Medications Medication Instructions Recorded Confirmed atorvastatin 20 mg tablet 20 mg PO HS 11/10/23 11/28/23 gabapentin 600 mg tablet 600 mg PO TID 11/10/23 11/28/23 hydrocodone 10 mg-acetaminophen 1 tablet PO Q4H PRN Pain (Scale 11/10/23 11/28/23 325 mg tablet Score 4-6) trazodone 100 mg tablet 100 mg PO HS 11/10/23 11/28/23 propranolol 40 mg tablet 20 mg PO Q12H 11/17/23 11/28/23 Allergies Allergy/AdvReac Type Severity Reaction Status Date / Time azithromycin Allergy Unknown Hives Verified 11/26/23 15:02 amoxicillin AdvReac Unknown Verified 11/26/23 15:02 Review of Systems Review of Systems: All systems reviewed & are unremarkable except as noted in HPI and below [facility] Past Medical History Medical History Aortic thrombus Clostridium difficile diarrhea Deep venous thrombosis Diabetic peripheral neuropathy Hyperlipidemia Neurogenic bladder Paraplegia Spinal cord stroke Type 1 diabetes mellitus Surgical History Surgical History History of aorto-femoral bypass Family History Family History Mother Acute myocardial infarction Diabetes mellitus Hypertension Father History of blood clots Social History Social History Social History: Surrogate medical decision maker: Ml Augilar, mother. Code status: Full code. Smoking status: Former smoker Alcohol intake: never Substance use: former Substance use type: crack/cocaine Do You Feel Safe in your Home?: Yes Lack of Transportation: No Lack of Food: Never True Current Housing: I Have Housing Concerned About Future Housing: No Difficulty Paying Gas/Electric Bills: No Difficulty Paying for Meds: No Currently Unemployed: No Education: High School Diploma/GED Difficulty w/ Childcare or Family Care: No Additional living arrangements comments: Lives with spouse and children in [place]. Spiritual care concerns: No Exam Narrative: GENERAL: Well-appearing, well-nourished, and in no acute distress. HEAD: Normocephalic, atraumatic. EYES: PERRLA and EOMI. ENT: Nares clear. Mucous membranes moist. NECK: Supple. CHEST: Clear to auscultation. No respiratory distress. HEART: Regular rate and rhythm. Normal peripheral pulses. ABDOMEN: Soft, diffusely tender, nondistended. EXTREMITIES: Normal range of motion of bilateral upper extremities. No edema. SKIN: Warm, dry, no rash. pressure ulcer present over the sacrum, wound VAC in place. NEURO: No new focal deficits. Chronic lower extremity paralysis. Alert and oriented x3. Course Course Emergency Course: Chart review performed, patient here for urinary symptoms times 2-3 days. She is well known to this hospital and she was admitted last by myself at the end of last month and was just discharged about a week ago.
[2023-11-28 14:57] LABS: Basophils Absolute Auto 0.1 K/mm3 (0.0-0.1); Basophils Percent Auto 0.5 % (0.2-1.2); Eosinophils Absolute Auto 0.1 K/mm3 (0-0.3); Eosinophils Percent Auto 0.5 % (0-4.4); Hematocrit 30.7 % (37.0-47.0); Hemoglobin 10.1 g/dL (12.0-15.0); Immature Granulocyte Absolute 0.11 K/mm3 (0.00-0.031); Immature Granulocyte Percent A 0.9 % (0-0.5); Lymphocytes Absolute Auto 2.08 K/mm3 (0.9-3.2); Lymphocytes Percent Auto 17.2 % (18.3-44.2); Mean Corpuscular HGB Conc 32.9 g/dl (32-36); Mean Corpuscular Hemoglobin 28.8 pg (26-34); Mean Corpuscular Volume 87.5 fl (80-100); Mean Platelet Volume 9.8 fl (7.4-10.4); Monocytes Absolute Auto 0.5 K/mm3 (0.1-0.6); Monocytes Percent Auto 3.9 % (2.6-8.5); Neutrophils Absolute Auto 9.3 K/mm3 (1.3-6.7); Platelet Count Result 311 k/mm3 (150-375); Red Blood Count 3.51 M/mm3 (4.2-5.4); Red Cell Distribution Width 15.2 % (11.5-14.5); White Blood Count 12.1 K/mm3 (4.5-10.0)
[2023-11-28 15:00] VITALS: BP 107/73; PULSE 99; RESP 12; O2SAT 100
[2023-11-28] MEDS: MORPHINE SULFATE (*CRX) 4 MG/ML INJ IV PUSH (15:07)
[2023-11-28] MEDS: ONDANSETRON INJ 4 MG/2 ML VIAL IV PUSH (15:07)
[2023-11-28 15:08] LABS: Add Urine Microscopic? YES; Amorphous Sediment Urine Heavy
[2023-11-28] MEDS: LACTATED RINGERS 1,000 ML 999 ML IV CONT (15:08)
[2023-11-28 15:09] LABS: Prothrombin Time 13.2 Seconds (11.1-14.7)
[2023-11-28 15:10] LABS: Lactic Acid Reflex 1.5 mmol/L (0.7-2.0)
[2023-11-28 15:10] LABS: Partial Thromboplastin Time 29.7 Seconds (22.3-36.8)
[2023-11-28 15:14] LABS: Alanine Aminotransferase 24 U/L (6-35); Albumin Level 3.6 g/dL (3.5-5.1); Alkaline Phosphatase 184 U/L (38-126); Anion Gap 9 mmol/L (4-12); Aspartate Amino Transferase 18 U/L (14-36); Bilirubin,Total 0.3 mg/dL (0.2-1.3); Blood Urea Nitrogen 16 mg/dL (7-17); CRP 3.6 mg/dL (<1.0); Calcium 10.2 mg/dL (8.4-10.2); Carbon Dioxide 22 mmol/L (22-30); Chloride 105 mmol/L (98-107); Estimated Glomerular Filt Rate > 60; Glucose 181 mg/dL (65-110); Potassium 3.9 mmol/L (3.4-5.0); Sodium 136 mmol/L (137-145)
--- NOTE | 2023-11-28 15:32 | PM.IMHP ---
H&P: HPI History of Present Illness Date/Time: 11/28/23 15:32 Chief Complaint: Flank Pain Narrative: 43 y/o F presents here with flank pain, chills, and diaphoresis with PMH of paraplegia secondary to an embolic cord stroke after surgery was performed for aortic thrombus via aortic bypass (May 2023), DM1, diabetic peripheral neuropathy, and HLD. The patient presents here with flank pain, diaphoresis, and chills. Onset of symptoms was Saturday (11/25). Symptoms consistent with previous UTIs that patient has experienced. The patient has a chronic indwelling Marcos due to suspected neurogenic bladder related to her paraplegia. She was recently admitted for a complicated UTI and a pressure wound to sacral region from 11/10/2023 to 11/21/2023. During this admission her urine culture grew MDR Klebsiella, blood cultures negative, wound cultures grew Klebsiella that was pansensitive and MSSA. Patient had skin grafting performed on 11/18/2023 and wound VAC applied. Since discharge she was able to follow-up with the wound clinic this week and she reports the wound has been healing well. Does have past history of sacral decubitus ulcer with osteomyelitis requiring long-term IV antibiotics via a PICC line after the aortic bypass in May of 2023. She is currently living at home and receives help from and 2 children. Initial VS at presentation: 97.9? F, HR 97, RR 15, 127/86, and 100% on RA. ED workup showed: WBC 12.1, hemoglobin 10.1, normal coags, creatinine 0.7 and GFR >60, lactic 1.5, CRP 3.6, and UA suspicious for UTI. CXR showed no acute cardiopulmonary disease. Review of Systems Review of Systems: All systems reviewed & are unremarkable except as noted in HPI and below PMFSH Past Medical History Medical History Aortic thrombus Clostridium difficile diarrhea Deep venous thrombosis Diabetic peripheral neuropathy Hyperlipidemia Neurogenic bladder Paraplegia Spinal cord stroke Type 1 diabetes mellitus Surgical History Surgical History History of aorto-femoral bypass Family History Family History Mother Acute myocardial infarction Diabetes mellitus Hypertension Father History of blood clots Social History Social History Social History: Surrogate medical decision maker: Ml Aguilar, mother. Code status: Full code. Smoking status: Former smoker Alcohol intake: never Substance use: former Substance use type: crack/cocaine Do You Feel Safe in your Home?: Yes Lack of Transportation: No Lack of Food: Never True Current Housing: I Have Housing Concerned About Future Housing: No Difficulty Paying Gas/Electric Bills: No Difficulty Paying for Meds: No Currently Unemployed: No Education: High School Diploma/GED Difficulty w/ Childcare or Family Care: No Additional living arrangements comments: Lives with spouse and children in [place]. Spiritual care concerns: No Meds Home Medications and Allergies Home Medications Medication Instructions Recorded Confirmed Type atorvastatin 20 mg tablet 20 mg PO HS 11/10/23 11/28/23 History gabapentin 600 mg tablet 600 mg PO TID 11/10/23 11/28/23 History hydrocodone 10 mg-acetaminophen 1 tablet PO Q4H PRN Pain (Scale 11/10/23 11/28/23 History 325 mg tablet Score 4-6) trazodone 100 mg tablet 100 mg PO HS 11/10/23 11/28/23 History propranolol 40 mg tablet 20 mg PO Q12H 11/17/23 11/28/23 History insulin glargine 100 unit/mL (3 36 unit (0.36 mL) subcut HS #3 mL 11/21/23 11/28/23 Rx mL) subcutaneous pen (Lantus Solostar U-100 Insulin) insulin lispro 100 unit/mL 10 unit (0.1 mL) subcut AC #15 mL 11/21/23 11/28/23 Rx subcutaneous pen (Humalog KwikPen (U-100) Insulin) Allergies Allergy/AdvReac Ty
[2023-11-28] MEDS: MEROPENEM 1 GM/NS 100 ML 1 GM/100 ML BAG IVPB ×2 (15:42→21:56)
--- NOTE | 2023-11-28 15:54 | PC.NURSE ---
wound vac removed per orders and wet to dry dressing applied. dated added to dressing and wound vac machine going upstairs with patient
--- NOTE | 2023-11-28 16:04 | ADMGEN ---
This patient, Jill Villa, was admitted to [facility] Room 321-01. Patient/family oriented to hospital policies and general routines including ID bracelet, bed and alarms, visiting hours, pain management, procedures, bathroom and other care routines, personal items, smoking policy, room service/diet, and visiting hours. Information on how to activate the Rapid Response Team has been discussed. Patient/Family are encouraged to report perceived risks to care and to ask questions if they do not understand what they are told or what they should do.
[2023-11-28 16:17] VITALS: BMI 23.8
[2023-11-28 16:51] LABS: Glucose Point of Care 138 mg/dl (65-105)
[2023-11-28] MEDS: GABAPENTIN 300 MG CAPSULE 600 MG PO (17:08)
[2023-11-28] MEDS: HYDROcodone/acetaminophen (*CRX) 10-325 MG TABLET 1 TAB PO ×2 (17:08→22:20)
[2023-11-28] MEDS: LACTATED RINGERS 1,000 ML 100 ML IV CONT (17:13)
[2023-11-28] MEDS: INSULIN ASPART (*BKC) 100 UNITS/ML 10 UNITS SUB-Q (18:01)
[2023-11-28 21:30] VITALS: BP 120/49; PULSE 99; RESP 18; TEMP 37.1; O2SAT 96
[2023-11-28] MEDS: INSULIN GLARGINE (*BKC) 100 UNITS/ML 36 UNITS SUB-Q (21:53)
[2023-11-28] MEDS: ATORVASTATIN 20 MG TABLET PO (21:55)
[2023-11-28] MEDS: traZODone HCL 50 MG TABLET 100 MG PO (21:55)
[2023-11-28 21:57] VITALS: PULSE 55
[2023-11-28] MEDS: PROPRANOLOL HCL 20 MG TABLET PO (21:57)
[2023-11-28 22:04] LABS: Glucose Point of Care 92 mg/dl (65-105)
--- NOTE | 2023-11-28 22:21 | PC.NURSE ---
pt refusing to allow staff to take wound photo at this time, stating I'm sure it will be the same tomorrow and told this RN that she is trying to sleep.
[2023-11-29] MEDS: HYDROcodone/acetaminophen (*CRX) 10-325 MG TABLET 1 TAB PO ×4 (03:11→19:05)
[2023-11-29 04:30] VITALS: BP 139/59; PULSE 105; RESP 16; TEMP 36.4; O2SAT 98
[2023-11-29] MEDS: MORPHINE SULFATE (*CRX) 2 MG/ML INJ IV PUSH (04:47)
[2023-11-29] MEDS: MEROPENEM 1 GM/NS 100 ML 1 GM/100 ML BAG IVPB ×3 (05:12→21:01)
--- NOTE | 2023-11-29 07:15 | PCWOUND ---
WOCN NOTE Received consult for patient's sacral ulcer with wound vac. Patient is followed in the wound center by Dr. Roman who applied graft to sacral ulcer with wound vac. Consult placed for Dr. Roman. Will wait for surgeons wound care orders before assessing patient. Per notes placed by nursing staff, a wet to dry dressing has been applied. This is sufficient for the time being.
[2023-11-29 07:48] LABS: Glucose Point of Care 104 mg/dl (65-105)
--- NOTE | 2023-11-29 09:10 | P.PNIM_ITS ---
Progress Note: A&P Assessment and Plan (1) Sepsis: Code(s): A41.9 - Sepsis, unspecified organism Status: Acute (2) Complicated urinary tract infection: Code(s): N39.0 - Urinary tract infection, site not specified Status: Acute (3) Pressure ulcer of sacral region: Qualifiers: Pressure injury stage: unspecified pressure injury stage Qualified Code(s): L89.159 - Pressure ulcer of sacral region, unspecified stage Code(s): L89.159 - Pressure ulcer of sacral region, unspecified stage Status: Acute (4) Type 1 diabetes mellitus: Code(s): E10.9 - Type 1 diabetes mellitus without complications Status: Acute (5) Paraplegia: Code(s): G82.20 - Paraplegia, unspecified Status: Acute Plan Sepsis without septic shock secondary to UTI * Meropenem based on previous UA cultures * Monitor lactic acid levels q6hr. 1.5 POA * Repeat CBC, CMP. * Two sets of blood cultures pending * urine cultures. Pending- * C-reactive proteins elevated * neuro status checks * Chest x-ray no cardiopulmonary findings * Monitor albumin, monitoring of mental status. * glucose monitoring and control UTI * chronic indwelling Marcos secondary to suspected neurogenic bladder r/t spinal cord injury * UA: Turbid, non hemolyzed trace blood, 1+ leuks, 21-50 RBC, 11-20 WBC, heavy more for sediment, occasional epithelial cells, no bacteria. * UC pending, obtained on 11/27 * previous micro reviewed: * 10/02/23: Enterobacter cloacae sensitive to meropenem * 11/08/23: Klebsiella pneumoniae that was snell resistant * 11/10/2023: Klebsiella pneumoniae sensitive to imipenem and meropenem only * started on meropenem on 11/27 * antipyretics p.r.n. * IV fluids * CT ABD pending to R/O pyelonephritis or calculus Sacral pressure ulcer * CT abd/pelvis, previous (11/10/23): 1. Moderate phlegmonous changes present in the presacral/perirectal location as well as posterior to the sacrum. There is associated soft tissue gas posterior to the sacrum. Findings suspicious for infection, although no drainable fluid collection identified. 2: Mild segmental thickening, suspicious for colitis. 3: Heterogeneous geographic hypoperfusion of an atrophic left kidney. Consider pyelonephritis in the appropriate clinical setting. * seen by General Surgery during previous admission (11/09-11/20), graft and VAC placement on 11/18/23 * wound culture, previous (11/09): Klebsiella pneumoniae pansensitive and MSSA * wound consulted * continue frequent turning and wound care * Surgery consulted Type 1 diabetes * Accu-Cheks a.c. HS * sliding scale insulin * resume patient's home long-acting * Hemoglobin A1c goal less than 7 pending * Diabetic diet * Watch for hypoglycemia/hypoglycemic protocol ordered Paraplegia * paraplegia secondary to an embolic cord stroke after surgery was performed for aortic thrombus via aortic bypass in May 2023, long complicated course post-op * suspected neurogenic bladder secondary to paraplegia, plan for follow-up outpatient with urology post-previous admission * continue supportive care: frequent turning, routine skin care, good nutrition Code status: Full code per patient DVT prophylaxis: Lovenox Stress ulcer prophylaxis: Protonix 40 daily PT/OT notes: PT/OT pending Disposition: Patient continues admission the medical unit sepsis without septic shock secondary to urinary tract infection last UA 526 showed Klebsiella as well as MSSA sensitive to meropenem IV currently pending cultures and sensitivit
--- NOTE | 2023-11-29 09:10 | PM.IMPN ---
Progress Note: A&P Assessment and Plan (1) Sepsis: Code(s): A41.9 - Sepsis, unspecified organism Status: Acute (2) Complicated urinary tract infection: Code(s): N39.0 - Urinary tract infection, site not specified Status: Acute (3) Pressure ulcer of sacral region: Qualifiers: Pressure injury stage: unspecified pressure injury stage Qualified Code(s): L89.159 - Pressure ulcer of sacral region, unspecified stage Code(s): L89.159 - Pressure ulcer of sacral region, unspecified stage Status: Acute (4) Type 1 diabetes mellitus: Code(s): E10.9 - Type 1 diabetes mellitus without complications Status: Acute (5) Paraplegia: Code(s): G82.20 - Paraplegia, unspecified Status: Acute Plan Sepsis without septic shock secondary to UTI Meropenem based on previous UA cultures Monitor lactic acid levels q6hr. 1.5 POA Repeat CBC, CMP. Two sets of blood cultures pending urine cultures. Pending- C-reactive proteins elevated neuro status checks Chest x-ray no cardiopulmonary findings Monitor albumin, monitoring of mental status. glucose monitoring and control UTI chronic indwelling Marcos secondary to suspected neurogenic bladder r/t spinal cord injury UA: Turbid, non hemolyzed trace blood, 1+ leuks, 21-50 RBC, 11-20 WBC, heavy more for sediment, occasional epithelial cells, no bacteria. UC pending, obtained on 11/27 previous micro reviewed: 10/02/23: Enterobacter cloacae sensitive to meropenem 11/08/23: Klebsiella pneumoniae that was snell resistant 11/10/2023: Klebsiella pneumoniae sensitive to imipenem and meropenem only started on meropenem on 11/27 antipyretics p.r.n. IV fluids CT ABD pending to R/O pyelonephritis or calculus Sacral pressure ulcer CT abd/pelvis, previous (11/10/23): 1. Moderate phlegmonous changes present in the presacral/perirectal location as well as posterior to the sacrum. There is associated soft tissue gas posterior to the sacrum. Findings suspicious for infection, although no drainable fluid collection identified. 2: Mild segmental thickening, suspicious for colitis. 3: Heterogeneous geographic hypoperfusion of an atrophic left kidney. Consider pyelonephritis in the appropriate clinical setting. seen by General Surgery during previous admission (11/09-11/20), graft and VAC placement on 11/18/23 wound culture, previous (11/09): Klebsiella pneumoniae pansensitive and MSSA wound consulted continue frequent turning and wound care Surgery consulted Type 1 diabetes Accu-Cheks a.c. 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 aortic bypass in May 2023, long complicated course post-op suspected neurogenic bladder secondary to paraplegia, plan for follow-up outpatient with urology post-previous admission continue supportive care: frequent turning, routine skin care, good nutrition Code status: Full code per patient DVT prophylaxis: Lovenox Stress ulcer prophylaxis: Protonix 40 daily PT/OT notes: PT/OT pending Disposition: Patient continues admission the medical unit sepsis without septic shock secondary to urinary tract infection last UA 526 showed Klebsiella as well as MSSA sensitive to meropenem IV currently pending cultures and sensitivity. Patient currently lives at home with family and home health will likely return when medically stable. Time Spent With Patient Time with patient: 15 - 25 minutes Subjective Date/time seen: 11/29/23 09:10 Interval history: Admission: Medical Chart Narrative: 43 y/o F presents here with flank pain, chills, and diaphoresis with PMH of paraplegia secondary to an embolic cord stroke after surgery was performed fo
[2023-11-29 09:20] VITALS: O2SAT 98
[2023-11-29] MEDS: ENOXAPARIN 40 MG/0.4 ML SYRINGE SUB-Q (09:27)
[2023-11-29] MEDS: GABAPENTIN 300 MG CAPSULE 600 MG PO ×3 (09:28→19:05)
[2023-11-29 09:33] VITALS: PULSE 102
[2023-11-29] MEDS: PROPRANOLOL HCL 20 MG TABLET PO ×2 (09:33→21:01)
[2023-11-29 11:49] LABS: Glucose Point of Care 138 mg/dl (65-105)
[2023-11-29 13:07] VITALS: BMI 23.8
[2023-11-29 14:00] VITALS: BP 127/56; PULSE 87; RESP 18; TEMP 36.6; O2SAT 100
[2023-11-29 14:11] LABS: Basophils Absolute Auto 0.1 K/mm3 (0.0-0.1); Basophils Percent Auto 0.4 % (0.2-1.2); Eosinophils Absolute Auto 0.1 K/mm3 (0-0.3); Eosinophils Percent Auto 1.2 % (0-4.4); Hematocrit 32.6 % (37.0-47.0); Hemoglobin 10.5 g/dL (12.0-15.0); Immature Granulocyte Absolute 0.12 K/mm3 (0.00-0.031); Immature Granulocyte Percent A 1.1 % (0-0.5); Lymphocytes Absolute Auto 1.94 K/mm3 (0.9-3.2); Lymphocytes Percent Auto 17.2 % (18.3-44.2); Mean Corpuscular HGB Conc 32.2 g/dl (32-36); Mean Corpuscular Hemoglobin 28.7 pg (26-34); Mean Corpuscular Volume 89.1 fl (80-100); Mean Platelet Volume 10.1 fl (7.4-10.4); Monocytes Absolute Auto 0.5 K/mm3 (0.1-0.6); Monocytes Percent Auto 4.3 % (2.6-8.5); Neutrophils Absolute Auto 8.5 K/mm3 (1.3-6.7); Neutrophils Percent Auto 75.8 % (45.5-73.1); Platelet Count Result 309 k/mm3 (150-375); Red Blood Count 3.66 M/mm3 (4.2-5.4); Red Cell Distribution Width 15.4 % (11.5-14.5); White Blood Count 11.3 K/mm3 (4.5-10.0)
[2023-11-29 14:24] LABS: Alanine Aminotransferase 21 U/L (6-35); Albumin Level 3.7 g/dL (3.5-5.1); Alkaline Phosphatase 184 U/L (38-126); Anion Gap 10 mmol/L (4-12); Aspartate Amino Transferase 16 U/L (14-36); Bilirubin,Total 0.5 mg/dL (0.2-1.3); Blood Urea Nitrogen 11 mg/dL (7-17); Calcium 10.3 mg/dL (8.4-10.2); Carbon Dioxide 23 mmol/L (22-30); Chloride 104 mmol/L (98-107); Estimated CRCL calculation 99 ml/min; Estimated Glomerular Filt Rate > 60; Glucose 117 mg/dL (65-110); Potassium 3.9 mmol/L (3.4-5.0); Sodium 137 mmol/L (137-145)
--- NOTE | 2023-11-29 14:46 | P.PNWOUND_ITS ---
Wound Care Note Date/Time: 11/29/23 14:46 History: Patient readmitted to the hospital with recurrent UTI. I have been following her for a stage IV sacral decubitus ulcer which is actually very clean. She had placement of a Marigen xenograft to aid with faster healing. She has been ma naged with a wound VAC at home. The wound VAC has been changed in the [facility] here this week but plans are to transition to home health care changing the wound vacs next week. I was asked to follow the patient while she is in the hospital here for the ulcer. Assessment and Plan Assessment and plan (1) Pressure ulcer of sacral region: Qualifiers: Pressure injury stage: unspecified pressure injury stage Qualified Code(s): L89.159 - Pressure ulcer of sacral region, unspecified stage Code(s): L89.159 - Pressure ulcer of sacral region, unspecified stage Status: Acute Assessment and Plan: Stable and slowly improving stage IV sacral decubitus wound. Continue wound VAC management for now. I did discuss with her that the wound VAC will likely help it heal much faster. She states that she will continue the wound VAC management now. Management for her recurrent UTI as per the hospitalist service. Will have the wound care nurse here see her and change the wound VAC as well she is an inpatient. Wound care nurses know to contact me if they have any concerns about the wound while she is an inpatient. When she eventually goes home, the home health nurses can do her wound VAC change with the cyst to the wound care clinic every couple of weeks for an interval exam for me to see her. Exam Skin: Other: Patient still has stage IV sacral decubitus wound. It is decreasing in size. Over the past 2 weeks it is decreased 0.5cm in all directions. Excellent granulation tissue at the base. No necrotic tissue and no purulence.
[2023-11-29 16:12] LABS: Glucose Point of Care 155 mg/dl (65-105)
[2023-11-29 20:57] LABS: Glucose Point of Care 189 mg/dl (65-105)
[2023-11-29] MEDS: traZODone HCL 50 MG TABLET 100 MG PO (21:01)
[2023-11-29] MEDS: ATORVASTATIN 20 MG TABLET PO (21:01)
[2023-11-29 21:10] VITALS: BP 147/59; PULSE 103; RESP 13; TEMP 36.2; O2SAT 100
[2023-11-29] MEDS: INSULIN GLARGINE (*BKC) 100 UNITS/ML 36 UNITS SUB-Q (21:10)
[2023-11-30] MEDS: HYDROcodone/acetaminophen (*CRX) 10-325 MG TABLET 1 TAB PO ×4 (02:54→16:41)
[2023-11-30 06:00] VITALS: BP 132/62; PULSE 98; RESP 18; TEMP 36.1; O2SAT 100
[2023-11-30] MEDS: MEROPENEM 1 GM/NS 100 ML 1 GM/100 ML BAG IVPB (06:25)
[2023-11-30 06:59] LABS: Alanine Aminotransferase 16 U/L (6-35); Albumin Level 3.5 g/dL (3.5-5.1); Alkaline Phosphatase 151 U/L (38-126); Anion Gap 10 mmol/L (4-12); Aspartate Amino Transferase 13 U/L (14-36); Bilirubin,Total 0.4 mg/dL (0.2-1.3); Blood Urea Nitrogen 17 mg/dL (7-17); Calcium 10.3 mg/dL (8.4-10.2); Carbon Dioxide 23 mmol/L (22-30); Chloride 105 mmol/L (98-107); Estimated CRCL calculation 99 ml/min; Estimated Glomerular Filt Rate > 60; Glucose 147 mg/dL (65-110); Potassium 3.6 mmol/L (3.4-5.0); Sodium 138 mmol/L (137-145)
[2023-11-30 07:11] LABS: Hematocrit 30.2 % (37.0-47.0); Hemoglobin 9.6 g/dL (12.0-15.0); Mean Corpuscular HGB Conc 31.8 g/dl (32-36); Mean Corpuscular Hemoglobin 28.7 pg (26-34); Mean Corpuscular Volume 90.1 fl (80-100); Mean Platelet Volume 10.2 fl (7.4-10.4); Platelet Count Result 304 k/mm3 (150-375); Red Blood Count 3.35 M/mm3 (4.2-5.4); Red Cell Distribution Width 15.1 % (11.5-14.5); White Blood Count 11.7 K/mm3 (4.5-10.0)
[2023-11-30 07:32] LABS: Glucose Point of Care 145 mg/dl (65-105)
--- NOTE | 2023-11-30 09:07 | PCPTNOTE ---
attempted PT eval ~ 845, pt refused--pain of 9/10 and not feeling well.
--- NOTE | 2023-11-30 09:21 | PCOTNOTE ---
Attempted to see pt. for occupational therapy evaluation, pt. declined at this time due to sacral wound pain, agreeable to participate tomorrow. Nursing aware
[2023-11-30 10:07] VITALS: PULSE 98
[2023-11-30] MEDS: PROPRANOLOL HCL 20 MG TABLET PO (10:07)
[2023-11-30] MEDS: GABAPENTIN 300 MG CAPSULE 600 MG PO ×2 (10:07→16:39)
[2023-11-30] MEDS: ENOXAPARIN 40 MG/0.4 ML SYRINGE SUB-Q (10:08)
[2023-11-30] MEDS: ONDANSETRON INJ 4 MG/2 ML VIAL IV PUSH (10:37)
[2023-11-30 11:33] LABS: Glucose Point of Care 170 mg/dl (65-105)
[2023-11-30] MEDS: INSULIN ASPART (*BKC) 100 UNITS/ML 10 UNITS SUB-Q (12:47)
[2023-11-30 14:00] VITALS: BP 135/55; PULSE 81; RESP 18; TEMP 36.2; O2SAT 100
--- NOTE | 2023-11-30 14:57 | P.DS_ITS ---
DS: Admitting Diagnosis Discharge Date 11/30/2023 Admitting Diagnosis UTI/Sacral wound DS: Discharge Diagnosis Discharge Diagnosis (1) Sepsis: Code(s): A41.9 - Sepsis, unspecified organism Status: Acute (2) Complicated urinary tract infection: Code(s): N39.0 - Urinary tract infection, site not specified Status: Acute (3) Pressure ulcer of sacral region: Qualifiers: Pressure injury stage: unspecified pressure injury stage Qualified Code(s): L89.159 - Pressure ulcer of sacral region, unspecified stage Code(s): L89.159 - Pressure ulcer of sacral region, unspecified stage Status: Acute (4) Type 1 diabetes mellitus: Code(s): E10.9 - Type 1 diabetes mellitus without complications Status: Acute (5) Paraplegia: Code(s): G82.20 - Paraplegia, unspecified Status: Acute Plan Sepsis without septic shock secondary to UTI-RULED OUT * Meropenem based on previous UA cultures * Monitor lactic acid levels q6hr. 1.5 POA * Repeat CBC, CMP. * Two sets of blood cultures pending * urine cultures. Pending- * C-reactive proteins elevated * neuro status checks * Chest x-ray no cardiopulmonary findings * Monitor albumin, monitoring of mental status. * glucose monitoring and control UTI-RULED OUT * chronic indwelling Marcos secondary to suspected neurogenic bladder r/t spinal cord injury * UA: Turbid, non hemolyzed trace blood, 1+ leuks, 21-50 RBC, 11-20 WBC, heavy more for sediment, occasional epithelial cells, no bacteria. * UC pending, obtained on 11/27 * previous micro reviewed: * 10/02/23: Enterobacter cloacae sensitive to meropenem * 11/08/23: Klebsiella pneumoniae that was snell resistant * 11/10/2023: Klebsiella pneumoniae sensitive to imipenem and meropenem only * started on meropenem on 11/27 * antipyretics p.r.n. * IV fluids * CT ABD pending to R/O pyelonephritis or calculus Sacral pressure ulcer * CT abd/pelvis, previous (11/10/23): 1. Moderate phlegmonous changes present in the presacral/perirectal location as well as posterior to the sacrum. There is associated soft tissue gas posterior to the sacrum. Findings suspicious for infection, although no drainable fluid collection identified. 2: Mild segmental thickening, suspicious for colitis. 3: Heterogeneous geographic hypoperfusion of an atrophic left kidney. Consider pyelonephritis in the appropriate clinical setting. * seen by General Surgery during previous admission (11/09-11/20), graft and VAC placement on 11/18/23 * wound culture, previous (11/09): Klebsiella pneumoniae pansensitive and MSSA * wound consulted * continue frequent turning and wound care * Surgery consulted Type 1 diabetes * Accu-Cheks a.c. 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
--- NOTE | 2023-11-30 14:57 | PM.DS ---
DS: Admitting Diagnosis Discharge Date 11/30/2023 Admitting Diagnosis UTI/Sacral wound DS: Discharge Diagnosis Discharge Diagnosis (1) Sepsis: Code(s): A41.9 - Sepsis, unspecified organism Status: Acute (2) Complicated urinary tract infection: Code(s): N39.0 - Urinary tract infection, site not specified Status: Acute (3) Pressure ulcer of sacral region: Qualifiers: Pressure injury stage: unspecified pressure injury stage Qualified Code(s): L89.159 - Pressure ulcer of sacral region, unspecified stage Code(s): L89.159 - Pressure ulcer of sacral region, unspecified stage Status: Acute (4) Type 1 diabetes mellitus: Code(s): E10.9 - Type 1 diabetes mellitus without complications Status: Acute (5) Paraplegia: Code(s): G82.20 - Paraplegia, unspecified Status: Acute Plan Sepsis without septic shock secondary to UTI-RULED OUT Meropenem based on previous UA cultures Monitor lactic acid levels q6hr. 1.5 POA Repeat CBC, CMP. Two sets of blood cultures pending urine cultures. Pending- C-reactive proteins elevated neuro status checks Chest x-ray no cardiopulmonary findings Monitor albumin, monitoring of mental status. glucose monitoring and control UTI-RULED OUT chronic indwelling Marcos secondary to suspected neurogenic bladder r/t spinal cord injury UA: Turbid, non hemolyzed trace blood, 1+ leuks, 21-50 RBC, 11-20 WBC, heavy more for sediment, occasional epithelial cells, no bacteria. UC pending, obtained on 11/27 previous micro reviewed: 10/02/23: Enterobacter cloacae sensitive to meropenem 11/08/23: Klebsiella pneumoniae that was snell resistant 11/10/2023: Klebsiella pneumoniae sensitive to imipenem and meropenem only started on meropenem on 11/27 antipyretics p.r.n. IV fluids CT ABD pending to R/O pyelonephritis or calculus Sacral pressure ulcer CT abd/pelvis, previous (11/10/23): 1. Moderate phlegmonous changes present in the presacral/perirectal location as well as posterior to the sacrum. There is associated soft tissue gas posterior to the sacrum. Findings suspicious for infection, although no drainable fluid collection identified. 2: Mild segmental thickening, suspicious for colitis. 3: Heterogeneous geographic hypoperfusion of an atrophic left kidney. Consider pyelonephritis in the appropriate clinical setting. seen by General Surgery during previous admission (11/09-11/20), graft and VAC placement on 11/18/23 wound culture, previous (11/09): Klebsiella pneumoniae pansensitive and MSSA wound consulted continue frequent turning and wound care Surgery consulted Type 1 diabetes Accu-Cheks a.c. 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 aortic bypass in May 2023, long complicated course post-op suspected neurogenic bladder secondary to paraplegia, plan for follow-up outpatient with urology post-previous admission continue supportive care: frequent turning, routine skin care, good nutrition Code status: Full code per patient DVT prophylaxis: Lovenox Stress ulcer prophylaxis: Protonix 40 daily PT/OT notes: PT/OT pending Disposition: Patient continues admission the medical unit sepsis without septic shock secondary to urinary tract infection last UA 526 showed Klebsiella as well as MSSA sensitive to meropenem IV currently pending cultures and sensitivity. Patient currently lives at home with family and home health will likely return when medically stable. DS: Summary Hospital Course Reason for hospitalization: Possible sepsis and UTI both ruled out/Sacral wound Hospital Course: Chief Complaint: Flank Pain Narrative: 43 y/o F presents here
[2023-11-30 16:35] LABS: Glucose Point of Care 118 mg/dl (65-105)
== END 2023-11-30 17:55 | disposition home health service (06) ==
LOC: ANHED 14:22 → ANH3MEDSUR 11-29 07:05
PROVIDERS: Student in an Organized Health Care Education/Training Program; Admitting Provider Internal Medicine; Emergency Provider Student in an Organized Health Care Education/Training Program; PCP Physician Assistant; Visit Provider Nurse Practitioner Family
DX: L89.154 Pressure ulcer of sacral region, stage 4 (principal); E10.42 Type 1 diabetes mellitus with diabetic polyneuropathy; E78.5 Hyperlipidemia, unspecified; I69.369 Other paralytic syndrome following cerebral infarction affecting unspecified side; G82.20 Paraplegia, unspecified; N31.9 Neuromuscular dysfunction of bladder, unspecified; Z86.718 Personal history of other venous thrombosis and embolism; Z87.891 Personal history of nicotine dependence; Z79.4 Long term (current) use of insulin; Z79.891 Long term (current) use of opiate analgesic; Z96.0 Presence of urogenital implants
CPT/HCPCS: 36415; 71046; 74176; 80053; 81001; 82948; 83605; 85025; 85027; 85610; 85730; 86140; 87040; 87086; 87088; 96361; 96365; 96375; 96376; 99285; A9270; G0378; J1650; J1815; J2185; J2270; J2405; J7120

== ENCOUNTER 2023-12-04 16:33 | Outpatient (NON) | payer OTHER, MEDICAID, SELFPAY | END 2023-12-04 16:34 | disposition home or self-care (01) | LOC: CHSLAB 16:35 | PROVIDERS: Visit Provider Physician Assistant | DX: N39.0 Urinary tract infection, site not specified (principal) | CPT/HCPCS: 87077; 87086; 87088; 87186 ==

== ENCOUNTER 2023-12-13 10:45 | Emergency (ER) | payer OTHER, MEDICAID, SELFPAY ==
--- NOTE | ~2023-12-13 | CT_ITS ---
EXAMINATION: CT abdomen pelvis w con DATE: 12/13/2023 13:34 INDICATION: Bowel obstruction. Urinary tract infection. TECHNIQUE: Computed tomography (CT) of the abdomen and pelvis was performed with 100 mL Omnipaque-350 intravenous contrast. Automated exposure control and iterative reconstruction technique were employe d. The dose-length product was 755.96 mGy-cm. COMPARISON: 11/29/2023 and 11/10/2023 FINDINGS: Lung bases are clear with mild atelectasis at the dependent lateral aspect of the right lower lung. H eart size is normal. No pericardial or pleural effusion. Liver, gallbladder, spleen, pancreas and rig ht adrenal gland are normal. 12 mm left adrenal adenoma with low-attenuation on prior noncontrast carole dy. Moderate left renal atrophy. 1-2 mm nonobstructing renal stones at lower pole calyces of the both the left and right kidneys. No bowel obstruction. Normal appendix. Moderate amount of stool at the r ectum with persistent presacral/perirectal inflammatory stranding which could be seen with a proctoco litis, potentially stercoral colitis. Marcos catheter within the otherwise normal bladder. Anteverted uterus and bilateral adnexa are unremarkable. No free intraperitoneal gas or fluid. No pathologically enlarged abdominal or pelvic lymphadenopathy. There is calcified atherosclerosis of the aorta and ma ny of the other arteries. There is occlusion of the caudal-most aorta and bilateral common iliac ganga karla including along a thrombosed left common iliac artery stent with patent bypass graft extending f rom the infrarenal abdominal aorta to the bifurcation of the bilateral common iliac arteries. There i s a deep sacral decubitus ulcer extending to the sacrococcygeal junction with cortical erosion along the inferior endplate of the S6 segment consistent with osteomyelitis. IMPRESSION: 1. Persistent perirectal/presacral stranding with mild wall thickening at the distal rectum consisten t with proctocolitis potentially stercoral colitis. Of note review of the prior 2 studies each demons trate a persistent 2.5 cm segment of relative stenosis/stricture with wall thickening at the distal r ectum which raises some concern for malignancy. Recommend correlation with proctoscopy. 2. Sacral decubitus ulcer with early osteomyelitis at the caudal endplate of the S6 segment. 3. Bilateral nonobstructing nephrolithiasis with moderate left renal atrophy. 4. Patent aortobiiliac bypass graft with occlusion of the caudal-most aorta and bilateral common vera c arteries including thrombosis of a prior left common iliac artery stent. Reviewed, dictated and finalized at location B. IMPRESSION: 1. Persistent perirectal/presacral stranding with mild wall thickening at the d istal rectum consistent with proctocolitis potentially stercoral colitis. Of no te review of the prior 2 studies each demonstrate a persistent 2.5 cm segment o f relative stenosis/stricture with wall thickening at the distal rectum which r aises some concern for malignancy. Recommend correlation with proctoscopy. 2. Sacral decubitus ulcer with early osteomyelitis at the caudal endplate of th e S6 segment. 3. Bilateral nonobstructing nephrolithiasis with moderate left renal atrophy. 4. Patent aortobiiliac bypass graft with occlusion of the caudal-most aorta and bilateral common iliac arteries including thrombosis of a prior left common il iac artery stent.
[2023-12-13 10:50] VITALS: BP 167/90; PULSE 90; RESP 16; TEMP 36.6; O2SAT 100
--- NOTE | 2023-12-13 11:08 | PC.NURSE ---
after obtaining vital signs pt refusing to be hooked up to the monitor. educated pt on the importance of being on the monitor. pt still refusing.
[2023-12-13 12:06] LABS: Basophils Absolute Auto 0.1 K/mm3 (0.0-0.1); Basophils Percent Auto 0.5 % (0.2-1.2); Eosinophils Percent Auto 0.3 % (0-4.4); Hematocrit 34.8 % (37.0-47.0); Hemoglobin 11.5 g/dL (12.0-15.0); Immature Granulocyte Absolute 0.05 K/mm3 (0.00-0.031); Immature Granulocyte Percent A 0.4 % (0-0.5); Lymphocytes Absolute Auto 2.34 K/mm3 (0.9-3.2); Lymphocytes Percent Auto 20.9 % (18.3-44.2); Mean Corpuscular Hemoglobin 28.8 pg (26-34); Mean Platelet Volume 10.3 fl (7.4-10.4); Monocytes Absolute Auto 0.3 K/mm3 (0.1-0.6); Monocytes Percent Auto 2.7 % (2.6-8.5); Neutrophils Absolute Auto 8.4 K/mm3 (1.3-6.7); Neutrophils Percent Auto 75.2 % (45.5-73.1); Platelet Count Result 339 k/mm3 (150-375); Red Cell Distribution Width 14.3 % (11.5-14.5); White Blood Count 11.2 K/mm3 (4.5-10.0)
[2023-12-13 12:10] LABS: Lactic Acid Reflex 1.1 mmol/L (0.7-2.0)
[2023-12-13 12:24] LABS: Alanine Aminotransferase 19 U/L (6-35); Albumin Level 4.7 g/dL (3.5-5.1); Alkaline Phosphatase 138 U/L (38-126); Anion Gap 11 mmol/L (4-12); Aspartate Amino Transferase 20 U/L (14-36); Bilirubin,Total 0.6 mg/dL (0.2-1.3); Blood Urea Nitrogen 27 mg/dL (7-17); Calcium 13.2 mg/dL (8.4-10.2); Carbon Dioxide 21 mmol/L (22-30); Chloride 103 mmol/L (98-107); Estimated CRCL calculation 73 ml/min; Estimated Glomerular Filt Rate 55; Glucose 141 mg/dL (65-110); Potassium 4.1 mmol/L (3.4-5.0); Sodium 135 mmol/L (137-145)
[2023-12-13 12:30] LABS: Appearance Urine Cloudy (Clear); Bacteria Urine None Seen /hpf; Bilirubin Urine Negative (Negative); Blood Urine 1+ (Negative); Budding Yeast Urine Present /hpf; Calcium Oxalate Crystals Urine Present /hpf; Color Urine Yellow (Yellow); Glucose Urine UA Negative (Negative); Ketones Urine Trace mg/dL (Negative); Leukocyte Esterase Ur 2+ LEU/UL (Negative); Mucus Urine Present /lpf; Nitrate Urine Negative (Negative); Non Pathogenic Casts 0-2; Protein Urine Trace mg/dL (Negative); Squamous Epithelial Cell Urine None Seen /hpf (Few); Urobilinogen Urine 0.2 mg/dL (<2.0); pH Urine 7.5 (5.0-9.0)
[2023-12-13 12:34] LABS: Add Urine Microscopic? YES
--- NOTE | 2023-12-13 12:47 | ED.GENADULT ---
HPI - General Adult General Chief complaint: Nausea/Vomiting/Diarrhea Stated complaint: weakness Time Seen by Provider: 12/13/23 11:33 History of Present Illness HPI narrative: 43-year-old female that is a paraplegic with suprapubic Marcos catheter presents emergency department complaining of low back pain and decreased bowel movements. Patient suspects that she does have a urinary tract infection. Patient is also concerned that she is having some issues with constipation over the last 4 days. Related Data Home Medications Medication Instructions Recorded Confirmed atorvastatin 20 mg tablet 20 mg PO HS 11/10/23 11/28/23 gabapentin 600 mg tablet 600 mg PO TID 11/10/23 11/28/23 hydrocodone 10 mg-acetaminophen 1 tablet PO Q4H PRN Pain (Scale 11/10/23 11/28/23 325 mg tablet Score 4-6) trazodone 100 mg tablet 100 mg PO HS 11/10/23 11/28/23 propranolol 40 mg tablet 20 mg PO Q12H 11/17/23 11/28/23 Allergies Allergy/AdvReac Type Severity Reaction Status Date / Time azithromycin Allergy Unknown Hives Verified 12/13/23 11:02 amoxicillin AdvReac Unknown Verified 12/13/23 11:02 Review of Systems Review of Systems: All systems reviewed & are unremarkable except as noted in HPI and below PMFSH Past Medical History Medical History Aortic thrombus Clostridium difficile diarrhea Deep venous thrombosis Diabetic peripheral neuropathy Hyperlipidemia Neurogenic bladder Paraplegia Spinal cord stroke Type 1 diabetes mellitus Surgical History Surgical History History of aorto-femoral bypass Family History Family History Mother Acute myocardial infarction Diabetes mellitus Hypertension Father History of blood clots Social History Social History Social History: Surrogate medical decision maker: Ml Aguilar, mother. Code status: Full code. Smoking status: Former smoker Alcohol intake: never Substance use: former Substance use type: crack/cocaine Do You Feel Safe in your Home?: Yes Lack of Transportation: No Lack of Food: Never True Current Housing: I Have Housing Concerned About Future Housing: No Difficulty Paying Gas/Electric Bills: No Difficulty Paying for Meds: No Currently Unemployed: No Education: High School Diploma/GED Difficulty w/ Childcare or Family Care: No Additional living arrangements comments: Lives with spouse and children in [place]. Spiritual care concerns: No Exam Narrative: APPEARANCE: Well-appearing HEAD: normocephalic, atraumatic. EYES: PERRLA/EOMI, conjunctivae clear. NOSE: Normal no drainage EARS:TMS clear with good light reflex. THROAT: Pharynx clear, no exudate. NECK: Supple. No adenopathy, no masses. RESPIRATORY: Airway patent, respirations nonlabored. Clear to auscultation bilaterally, no rales, rhonchi, wheezing. CARDIOVASCULAR: Regular rate and rhythm without murmurs rubs or gallops. ABDOMINAL: Suprapubic tenderness MUSCULOSKELETAL: Moves all extremities. Strength/ROM intact, No edema, No calf tenderness. NEURO: Alert. At neuro baseline SKIN: Warm, dry. Normal Color Course Course Emergency Course: Patient did have stool output from the enema and patient was started on antibiotics for urinary tract infection. Patient prefers to be discharged home. Patient was encouraged close follow-up with her primary care physician. Vital Signs Vital signs: Vital Signs Temperature 97.8 F 12/13/23 10:50 Pulse Rate 90 12/13/23 10:50 Respiratory Rate 16 12/13/23 10:50 Blood Pressure 167/90 H 12/13/23 10:50 Pulse Oximetry 100 12/13/23 10:50 Oxygen Delivery Room Air 12/13/23 10:50 Temperature 97.8 F 12/13/23 10:50 Pulse Rate 89 12/13/23 17:22 Respiratory Rate 18 12/13/23 17:22 Blood Pressure
[2023-12-13] MEDS: SODIUM CHLORIDE 0.9% IV 1,000 ML 999 ML IV CONT ×2 (12:49→12:50)
[2023-12-13] MEDS: SULFAMETHOXAZOLE/TRIMETHOPRIM 800/160 MG DS TABLET 1 TAB PO (12:50)
[2023-12-13] MEDS: HYDROcodone/acetaminophen (*CRX) 5-325 MG TABLET 1 TAB PO (13:12)
[2023-12-13 17:22] VITALS: BP 159/78; PULSE 89; RESP 18; O2SAT 100
== END 2023-12-13 18:03 | disposition home or self-care (01) ==
PROVIDERS: Emergency Provider Emergency Medicine; PCP Physician Assistant
DX: N39.0 Urinary tract infection, site not specified (principal); K59.00 Constipation, unspecified; G82.20 Paraplegia, unspecified; E10.42 Type 1 diabetes mellitus with diabetic polyneuropathy; E78.5 Hyperlipidemia, unspecified; N31.9 Neuromuscular dysfunction of bladder, unspecified; Z95.828 Presence of other vascular implants and grafts; Z86.718 Personal history of other venous thrombosis and embolism; Z87.891 Personal history of nicotine dependence; N20.0 Calculus of kidney; N26.1 Atrophy of kidney (terminal); K62.4 Stenosis of anus and rectum; L89.159 Pressure ulcer of sacral region, unspecified stage; M46.28 Osteomyelitis of vertebra, sacral and sacrococcygeal region
CPT/HCPCS: 36415; 74177; 80053; 81001; 81025; 83605; 85025; 87086; 87088; 87106; 96360; 96361; 99284; A9270; J7030; Q9967

== ENCOUNTER 2023-12-23 15:16 | Outpatient (NON) | payer OTHER, MEDICAID, SELFPAY ==
[2023-12-24 10:10] LABS: Appearance Urine Sl Cloudy (Clear); Bilirubin Urine Negative (Negative); Blood Urine Negative (Negative); Color Urine Light Yellow (Yellow); Glucose Urine UA Negative (Negative); Ketones Urine Negative (Negative); Leukocyte Esterase Ur 2+ LEU/UL (Negative); Nitrate Urine Negative (Negative); Protein Urine Negative (Negative); Urobilinogen Urine 0.2 mg/dL (0.2-1.0)
[2023-12-24 10:21] LABS: Add Urine Microscopic? YES; RBC Urine None seen /hpf (0-2)
[2023-12-24 10:22] LABS: Bacteria Urine 2+ /hpf; Squamous Epithelial Cell Urine Rare /hpf (Few)
== END 2023-12-23 15:17 | disposition home or self-care (01) ==
LOC: CHSLAB 15:18
PROVIDERS: Visit Provider Physician Assistant
DX: R82.998 Other abnormal findings in urine (principal); Z43.6 Encounter for attention to other artificial openings of urinary tract; N39.0 Urinary tract infection, site not specified
CPT/HCPCS: 81001; 87077; 87086; 87088; 87181

== ENCOUNTER 2023-12-24 07:39 | Outpatient (RCR) | payer OTHER, MEDICAID, SELFPAY ==
[2023-11-26 14:41] VITALS: BMI 22.4
--- NOTE | 2023-12-17 09:50 | PCWOUND ---
WOCN NOTE Patient called and cancelled for today. Let Dr Roman's office know. waiting for them to give date on reschedule.
--- NOTE | 2023-12-30 17:52 | P.PN_ITS ---
Progress Note: A&P Assessment and Plan (1) Pressure ulcer of sacral region: Qualifiers: Pressure injury stage: unspecified pressure injury stage Qualified Code(s): L89.159 - Pressure ulcer of sacral region, unspecified stage Code(s): L89.159 - Pressure ulcer of sacral region, unspecified stage Status: Acute Assessment and Plan: the sacral decubitus wound has contracted some. There seems to be in the new skin growth at the edges. Granulation tissue was present the base. See no obvious exposed bone but is palpable at the base of the wound. There is a CT scan performed for other complaints of abdominal pain just does seem to suggest osteomyelitis of the sacrum. She has no fever no outward signs of cellulitis of the wound. For now will continue to monitor the wound off of antibiotics and see if we will continue here with the present course of local wound care and wound VAC dressings. I have recommended to the clinic next week wound care nurses to evaluate the wound. I will see him again in 2 weeks. Subjective Date/time seen: 12/24/23 Interval history: Patient is seen in the [facility] for interval follow-up on her sacral decubitus wound. She has home health services for change the wound VAC at home as well as seen in the Wound Care Clinic. There are reports from home health nursing that the patient does removed the wound VAC and home leaves off over the weekend. She had a wound back off this weekend due to burning at the site of the wound and had just been doing wet to dry dressings this weekend. A piece of tissue was 2 brought from the family as I thought it was a piece of bone. A Wixson of the tissue by me reveals this not to be bone. Exam Skin: Other: The sacral decubitus wound now measures 3.5x1.3x2.0cm. It does undermine from the 10 o'clock to 1 o'clock position about 2.8cm. There is granulation tissue throughout most of the base. The tip of the coccyx is palpable but I do not see any exposed bone on evaluation. No purulent drainage or necrotic tissue was noted.
== END 2024-02-24 23:59 | disposition home or self-care (01) ==
LOC: ANHWOC 07:39
PROVIDERS: PCP Physician Assistant; Visit Provider Surgery
DX: L89.159 Pressure ulcer of sacral region, unspecified stage (principal)
CPT/HCPCS: 97606; 99214; G0463

== ENCOUNTER 2023-12-31 13:05 | Emergency (ER) | payer OTHER, MEDICAID, SELFPAY ==
[2023-12-31 13:15] VITALS: BP 165/82; PULSE 82; RESP 18; TEMP 36.4; O2SAT 98
--- NOTE | 2023-12-31 13:22 | ED.FEMALEGU ---
HPI - Female Genitourinary General Chief complaint: Urogenital-Female Stated complaint: vomiting Time Seen by Provider: 12/31/23 13:12 Source: patient Mode of arrival: ambulatory History of Present Illness HPI Narrative: Patient is a 43-year-old female with significant past medical history that presents today for UTI and nausea. Patient is a paraplegic and has a permanent Marcos catheter in. She states that she recently around 3 weeks ago was diagnosed with another UTI. She was given Bactrim for this. There was a culture done and no One went over the results with her or check the susceptibility. a susceptibility showed it was susceptible to ampicillin vancomycin and interfere time. It did not show anything more on the list. Her symptoms now include nausea vomiting. She states last time she had bad UTI she had the same symptoms and Ended up septic. she denies any fevers or shortness of breath. She says she is currently still taking the Bactrim because they restart her on Bactrim about 5 days ago and she is still currently taking it. MD elicited complaint: UTI Pertinent past history: recurrent UTIs Onset (ago): day(s) Location of symptoms: perineum Female Urogenital Radiation: Non-Radiating Quality of pain: cramping Consistency: constant Vaginal discharge: none Vaginal bleeding: none Urinary symptoms: Dysuria, Urgency and Frequency Exacerbating factors: none Relieving factors: none Associated symptoms: abdominal pain Treatment prior to arrival: other (Bactrim ) Sexual activity: No Patient : No Related Data Home Medications Medication Instructions Recorded Confirmed atorvastatin 20 mg tablet 20 mg PO HS 11/10/23 12/31/23 gabapentin 600 mg tablet 600 mg PO TID 11/10/23 12/31/23 hydrocodone 10 mg-acetaminophen 1 tablet PO Q4H PRN Pain (Scale 11/10/23 12/31/23 325 mg tablet Score 4-6) trazodone 100 mg tablet 100 mg PO HS 11/10/23 12/31/23 propranolol 40 mg tablet 20 mg PO Q12H 11/17/23 12/31/23 Allergies Allergy/AdvReac Type Severity Reaction Status Date / Time azithromycin Allergy Unknown Hives Verified 12/31/23 13:32 amoxicillin AdvReac Unknown Verified 12/31/23 13:32 Review of Systems Constitutional: Constitutional: Reports as per HPI Eyes: Eyes: Reports as per HPI ENT: Reports system reviewed and no additional complaints, except as documented Cardiovascular: Cardiovascular: Reports as per HPI Respiratory: Respiratory: Reports no additional respiratory complaints Gastrointestinal: Gastrointestinal: Reports no additional gastrointestinal complaints Genitourinary: Genitourinary: Reports as per HPI and Reports nocturia Musculoskeletal: Musculoskeletal: Reports no additional musculoskeletal complaints Integumentary/Breasts: Skin/Breast: Reports system reviewed and no additional complaints, except as docu Neurologic: Reports system reviewed and no additional complaints, except as documented Psychiatric: Psychiatric: Reports no additional psychiatric complaints Endocrine: Endocrine: Reports no additional endocrine complaints Hematologic/Lymphatic: Hematologic/Lymphatic: Reports no additional hematologic/lymphatic complaints Allergic/Immunologic: Allergic/Immunologic: Reports no additional allergic/immunologic complaints [facility] Past Medical History Medical History Aortic thrombus Clostridium difficile diarrhea Deep venous thrombosis Diabetic peripheral neuropathy Hyperlipidemia Neurogenic bladder Paraplegia Spinal cord stroke Type 1 diabetes mellitus Surgical History Surgical History History of aorto-femoral bypass Family History Family History Mother Acute myocardial infarction Diabetes mellitus Hypertension Father History of blood clots Social History Social History (Reviewed 12/31/23 @ 13:39 by Epifanio Colindres
[2023-12-31] MEDS: SODIUM CHLORIDE 0.9% IV 1,000 ML 999 ML IV CONT ×2 (13:37→14:45)
[2023-12-31] MEDS: ONDANSETRON INJ 4 MG/2 ML VIAL IV PUSH (13:38)
[2023-12-31 13:43] LABS: Basophils Absolute Auto 0.04 K/mm3 (0.00-0.10); Basophils Percent Auto 0.5 % (0.0-1.0); Eosinophils Absolute Auto 0.21 K/mm3 (0.02-0.50); Eosinophils Percent Auto 2.5 % (1.0-6.0); Hematocrit 33.5 % (35.0-49.0); Hemoglobin 11.1 g/dL (12.0-15.0); Immature Granulocyte Absolute 0.03 K/mm3 (0.00-0.00); Immature Granulocyte Percent A 0.4 % (0.0-0.0); Lymphocytes Absolute Auto 2.41 K/mm3 (1.10-4.50); Lymphocytes Percent Auto 29.2 % (18.0-42.0); Mean Corpuscular HGB Conc 33.1 g/dL (32-36); Mean Corpuscular Hemoglobin 29.2 pg (27.0-31.0); Mean Corpuscular Volume 88.2 fL (78.0-102.0); Mean Platelet Volume 9.7 fl (9.2-11.8); Monocytes Absolute Auto 0.41 K/mm3 (0.10-0.90); Neutrophils Absolute Auto 5.15 K/mm3 (1.70-7.20); Neutrophils Percent Auto 62.4 % (50.0-70.0); Platelet Count Result 251 K/mm3 (150-420); Red Cell Distribution Width 13.6 % (11.6-14.4); White Blood Count 8.3 K/mm3 (4.8-10.8)
[2023-12-31 13:44] LABS: Bilirubin Urine Negative (Negative); Blood Urine Trace-intact (Negative); Color Urine Light Yellow (Yellow); Glucose Urine UA Negative (Negative); Ketones Urine Negative (Negative); Leukocyte Esterase Ur 3+ LEU/UL (Negative); Nitrate Urine Negative (Negative); Protein Urine Trace (Negative); Urobilinogen Urine 0.2 mg/dL (0.2-1.0)
[2023-12-31 13:51] LABS: Add Urine Microscopic? YES; Appearance Urine Sl Cloudy (Clear); Bacteria Urine 1+ /hpf; RBC Urine 0-2 /hpf (0-2); Squamous Epithelial Cell Urine Moderate /hpf (Few); WBC Urine 16-20 /hpf (0-3)
[2023-12-31 13:58] LABS: Alanine Aminotransferase 18 U/L (14-59); Albumin Level 3.5 g/dL (3.4-5.0); Alkaline Phosphatase 108 U/L (46-116); Anion Gap 7 mmol/L (4-12); Aspartate Amino Transferase 11 U/L (15-37); Bilirubin,Total 0.3 mg/dL (0.00-1.00); Blood Urea Nitrogen 19 mg/dL (7-18); Carbon Dioxide 26 mmol/L (21-32); Chloride 100 mmol/L (98-108); Estimated CRCL calculation 61 ml/min; Estimated Glomerular Filt Rate 44; Glucose 139 mg/dL (70-99); Osmolality Calculated 280 mOsm/kg (285-295); Potassium 3.7 mmol/L (3.5-5.1); Sodium 133 mmol/L (136-145); Total Protein 7.3 g/dL (6.4-8.2)
[2023-12-31 14:01] LABS: Calcium > 14.0 mg/dL (8.5-10.1)
[2023-12-31 14:03] LABS: Lactic Acid Reflex 0.8 mmol/L (0.4-2.0)
[2023-12-31] MEDS: NITROFURANTOIN MONOHYD MACROCR 100 MG CAP PO (14:36)
--- NOTE | 2023-12-31 14:38 | PC.NURSE ---
PT IS LYING ON RT SIDE WITH PILLOW UNDER LEFT SIDE. PT IS REQUESTING PAIN MEDICATION FOR BACK PAIN. PT TOOK MEDICATION WITHOUT DIFFICULTY, TO HAVE ANOTHER LITER OF FLUIDS PRIOR TO DC HOME. ERP HAS SPOKEN WITH PT AND REVIEWED RESULTS. PT DENIES ANY OTHER NEEDS OR COMPLAINTS. LIGHTS ARE OFF AND BLANKET PROVIDED. WILL CONTINUE TO MONITOR.
[2023-12-31] MEDS: MORPHINE SULFATE (*CRX) 2 MG/ML INJ 1 MG IV PUSH (14:45)
--- NOTE | 2023-12-31 15:44 | PC.NURSE ---
pt is speaking with friend at bedside. ivf infusing as ordered without difficulty. pt denies any needs or complaints. will continue to monitor.
[2023-12-31 16:07] VITALS: BP 180/89; PULSE 85; RESP 18; TEMP 36.4; O2SAT 100
[2023-12-31 16:25] VITALS: BP 148/78; PULSE 80; RESP 18; TEMP 36.6; O2SAT 98
--- NOTE | 2024-01-03 15:42 | PC.NURSE ---
final urine culture recieved and pt is on correct antibiotic pt on Nitrofurantoin with is susceptible for Enterococcus species per Dr Colindres
== END 2023-12-31 16:25 | disposition home or self-care (01) ==
PROVIDERS: Emergency Provider Family Medicine; PCP Physician Assistant
DX: N39.0 Urinary tract infection, site not specified (principal); E86.0 Dehydration; E78.5 Hyperlipidemia, unspecified; E10.9 Type 1 diabetes mellitus without complications; Z87.891 Personal history of nicotine dependence; Z79.899 Other long term (current) drug therapy; Z79.891 Long term (current) use of opiate analgesic
CPT/HCPCS: 36415; 80053; 81001; 83605; 85025; 87077; 87086; 87088; 87181; 96361; 96374; 96375; 99284; A9270; J2270; J2405; J7030

== ENCOUNTER 2024-01-01 21:41 | Inpatient (IN) | payer OTHER, MEDICAID, SELFPAY ==
--- NOTE | ~2024-01-01 | CT_ITS ---
Non-contrast CT scan of the Abdomen and Pelvis Clinical indication: Flank pain Technique: 2.5 mm axial scans were obtained through the abdomen and pelvis without intravenous or or al contrast. Dose reduction technique was used on this scan by utilizing automated exposure control a nd iterative reconstruction technique. The dose-length product (DLP) was 296.25 mGy-cm. COMPARISON: 12/13/2023 Findings: Images through the lung bases reveal no abnormalities. Punctate nonobstructing renal stones are present. No ureteral stone or hydronephrosis seen on either side. The liver, spleen, pancreas, gallbladder, and adrenals appear normal. There are atherosclerotic calci fications of the aorta, probable aortoiliac bypass. There is no evidence of bowel obstruction. There is focal circumferential wall thickening and possibl e minimal narrowing at the distal rectum. There is stable infiltration of presacral fat. Images through the pelvis were performed. There is no evidence of ascites or lymphadenopathy. There i s air in urinary bladder with Marcos catheter and small layering urinary bladder stones. No pelvic mas s evident. There is a small sacral decubitus ulcer just left of midline at the level of the coccyx. Focal osteom yelitis of S6 present. Impression: Small nonobstructing renal stones and small areas urinary bladder stones. No hydronephrosis or ureter al stones seen. Stable probable circumferential wall thickening focally the distal rectum with infiltration of presac ral fat. Underlying colonic malignancy not excluded. Sacral decubitus ulcer with probable focal osteomyelitis of S6. Reviewed, dictated and finalized at [facility]. Impression: Small nonobstructing renal stones and small areas urinary bladder stones. No hy dronephrosis or ureteral stones seen. Stable probable circumferential wall thickening focally the distal rectum with infiltration of presacral fat. Underlying colonic malignancy not excluded. Sacral decubitus ulcer with probable focal osteomyelitis of S6.
--- NOTE | ~2024-01-01 | US_ITS ---
EXAMINATION: US thyroid DATE: 01/02/2024 14:30 INDICATION: Hypercalcemia TECHNIQUE: Multiple ultrasound images of the thyroid were obtained. COMPARISON: None. FINDINGS: The right thyroid lobe measures 5.6 x 2.3 x 2.3 cm. The left thyroid lobe measures 5.7 x 2.1 x 1.8 c m. Thyroid isthmus measures 2-3 mm maximal thickness. There is a 1.8 x 1.7 x 1.1 cm solid wider than tall isoechoic nodule with smooth margins and without echogenic foci at the inferior right thyroid lo be (TI-RADS 4, moderately suspicious , FNA if >=1.5 cm, annual followup is >=1 cm). 1.2 x 0.9 x 0.6 c m solid mixed isoechoic and hyperechoic nodule with smooth margins and without echogenic foci at the inferior left thyroid lobe (TI-RADS 3, mildly suspicious , FNA if >=2.5 cm, annual followup is >=1.5 cm). There is normal echotexture, echogenicity and vascular flow throughout the remainder of the thyr oid gland. IMPRESSION: 1. Nodules at the inferior aspect of both the right and left thyroid lobes, the larger TI RADS 4 nodu le measuring 1.8 cm on the right and the smaller 1.2 cm TI RADS 3 nodule on the left. The former meet s criteria for ultrasound-guided biopsy. Differential for both nodules, given the position as well as the provided history of hypercalcemia would also include parathyroid adenoma and could also consider parathyroid scintigraphy for correlation. Reviewed, dictated and finalized at location [facility]. IMPRESSION: 1. Nodules at the inferior aspect of both the right and left thyroid lobes, the larger TI RADS 4 nodule measuring 1.8 cm on the right and the smaller 1.2 cm T I RADS 3 nodule on the left. The former meets criteria for ultrasound-guided bi opsy. Differential for both nodules, given the position as well as the provided history of hypercalcemia would also include parathyroid adenoma and could also consider parathyroid scintigraphy for correlation.
--- NOTE | ~2024-01-01 | US_ITS ---
EXAMINATION: US FNA w image guidance DATE: 01/03/2024 11:38 INDICATION: Nodule at the inferior right thyroid TECHNIQUE: A time-out was performed to verify the patient's name, date of , and procedure to be performed . The procedure and its benefits and risks were discussed with the patient. Risks specifically discus sed included bleeding and infection. The patient understood the risks and agreed to proceed. The neck was prepped and draped in the usual sterile manner. 5 mL 1% lidocaine was used for local anesthesia . 6 passes were made with a 25G needle into the lesion. Appropriate needle location was documented with continuous sonographic guidance. A sterile bandage was applied. There were no immediate compli cations. FINDINGS: Grayscale ultrasound images demonstrate biopsy needles advanced into the larger 1.8 cm hypoechoic TI RADS 4 nodule concern, unclear whether within or along side the inferior right thyroid. IMPRESSION: 1. Successful ultrasound-guided fine needle aspiration of a 1.8 cm TI RADS 4 nodule at the inferior right thyroid. Reviewed, dictated and finalized at location [facility]. IMPRESSION: 1. Successful ultrasound-guided fine needle aspiration of a 1.8 cm TI RADS 4 n odule at the inferior right thyroid.
--- NOTE | ~2024-01-01 | XR_ITS ---
XR chest 2V Ordering provider: Jose De Jesus Juan MD History: 43 years Female with . weakness . Comparison: November 28, 2023 FINDINGS: MEDIASTINUM: The cardiac silhouette is not enlarged. LUNGS: No infiltrates, effusions or pneumothorax. OTHER: No free air under the diaphragm. IMPRESSION: No acute cardiopulmonary pathology. Reviewed, dictated and finalized at location [facility].
[2024-01-01 21:43] VITALS: BP 165/75; PULSE 84; RESP 15; TEMP 36.4; O2SAT 97
[2024-01-01 21:47] VITALS: O2SAT 97
--- NOTE | 2024-01-01 21:49 | ECG_ITS ---
Test Date: 2024-01-01 23:17:32 Measurements Intervals [place] Rate: 75 P: 68 UT: 234 QRS: 53 QRSD: 100 T: 59 QT: 363 QTc: 408 Interpretive Statements SINUS RHYTHM WITH FIRST DEGREE AV BLOCK DELAYED PRECORDIAL R/S TRANSITION ST ELEVATION IN ANTERIOR LEADS- PROBABLY EARLY REPOLARIZATION BASELINE ARTIFACT- I, III, AVR, AVL, V1 BORDERLINE ECG No previous ECG available for comparison Electronically Signed On 01-02-2024 06:27:35 CDT by Esteban Pandya D.O.
[2024-01-01] MEDS: SODIUM CHLORIDE 0.9% IV 1,000 ML 999 ML IV CONT (22:04)
[2024-01-01] MEDS: MORPHINE SULFATE (*CRX) 4 MG/ML INJ 2 MG IV PUSH (22:04)
[2024-01-01] MEDS: ONDANSETRON INJ 4 MG/2 ML VIAL IV PUSH (22:04)
[2024-01-01 22:05] LABS: Basophils Percent Auto 0.5 % (0.2-1.2); Eosinophils Absolute Auto 0.2 K/mm3 (0-0.3); Eosinophils Percent Auto 2.1 % (0-4.4); Hematocrit 33.4 % (37.0-47.0); Hemoglobin 10.9 g/dL (12.0-15.0); Immature Granulocyte Absolute 0.02 K/mm3 (0.00-0.031); Immature Granulocyte Percent A 0.2 % (0-0.5); Lymphocytes Absolute Auto 2.01 K/mm3 (0.9-3.2); Lymphocytes Percent Auto 22.9 % (18.3-44.2); Mean Corpuscular HGB Conc 32.6 g/dl (32-36); Mean Corpuscular Hemoglobin 28.8 pg (26-34); Mean Corpuscular Volume 88.4 fl (80-100); Mean Platelet Volume 9.8 fl (7.4-10.4); Monocytes Absolute Auto 0.5 K/mm3 (0.1-0.6); Monocytes Percent Auto 5.7 % (2.6-8.5); Neutrophils Percent Auto 68.6 % (45.5-73.1); Platelet Count Result 252 k/mm3 (150-375); Red Blood Count 3.78 M/mm3 (4.2-5.4); Red Cell Distribution Width 13.6 % (11.5-14.5); White Blood Count 8.8 K/mm3 (4.5-10.0)
[2024-01-01 22:14] LABS: Lactic Acid Reflex 0.6 mmol/L (0.7-2.0)
[2024-01-01 22:16] VITALS: PULSE 78
[2024-01-01 22:18] LABS: Alanine Aminotransferase 14 U/L (6-35); Albumin Level 4.2 g/dL (3.5-5.1); Alkaline Phosphatase 97 U/L (38-126); Anion Gap 9 mmol/L (4-12); Aspartate Amino Transferase 21 U/L (14-36); Bilirubin,Total 0.6 mg/dL (0.2-1.3); Blood Urea Nitrogen 25 mg/dL (7-17); Calcium 13.7 mg/dL (8.4-10.2); Carbon Dioxide 24 mmol/L (22-30); Chloride 103 mmol/L (98-107); Estimated CRCL calculation 59 ml/min; Estimated Glomerular Filt Rate 45; Glucose 138 mg/dL (65-110); Potassium 3.5 mmol/L (3.4-5.0); Sodium 136 mmol/L (137-145)
--- NOTE | 2024-01-01 22:36 | ED.GENADULT ---
HPI - General Adult General Chief complaint: Weakness Stated complaint: Weakness, UTI dx yesterday Time Seen by Provider: 01/01/24 21:48 History of Present Illness HPI narrative: Patient is a 43-year-old female who presents emergency department with chief complaint of generalized weakness UTI patient reports that she was recently seen at another facility and was diagnosed with urinary tract infection. The patient reports that she feels generally weak and feels that the antibiotics are not helping her the patient reports that she has had some abdominal discomfort and felt nauseated is not the patient reports that she has had to be on meropenem before in the past and also reports that she would like to go to rehab for physical deconditioning. Related Data Home Medications Medication Instructions Recorded Confirmed atorvastatin 20 mg tablet 20 mg PO HS 11/10/23 12/31/23 gabapentin 600 mg tablet 600 mg PO TID 11/10/23 12/31/23 hydrocodone 10 mg-acetaminophen 1 tablet PO Q4H PRN Pain (Scale 11/10/23 12/31/23 325 mg tablet Score 4-6) trazodone 100 mg tablet 100 mg PO HS 11/10/23 12/31/23 propranolol 40 mg tablet 20 mg PO Q12H 11/17/23 12/31/23 Allergies Allergy/AdvReac Type Severity Reaction Status Date / Time azithromycin Allergy Unknown Hives Verified 12/31/23 13:32 amoxicillin AdvReac Unknown Verified 12/31/23 13:32 Review of Systems Review of Systems: A 10 system review of systems was completed on the patient and is negative except for what is stated in the HPI. Nursing and ancillary documentation was reviewed. [facility] Past Medical History Medical History Aortic thrombus Clostridium difficile diarrhea Deep venous thrombosis Diabetic peripheral neuropathy Hyperlipidemia Neurogenic bladder Paraplegia Spinal cord stroke Type 1 diabetes mellitus Surgical History Surgical History History of aorto-femoral bypass Family History Family History Mother Acute myocardial infarction Diabetes mellitus Hypertension Father History of blood clots Social History Social History Social History: Surrogate medical decision maker: lM Aguilar, mother. Code status: Full code. Smoking status: Former smoker Alcohol intake: never Substance use: former Substance use type: crack/cocaine Do You Feel Safe in your Home?: Yes Lack of Transportation: No Lack of Food: Never True Current Housing: I Have Housing Concerned About Future Housing: No Difficulty Paying Gas/Electric Bills: No Difficulty Paying for Meds: No Currently Unemployed: No Education: High School Diploma/GED Difficulty w/ Childcare or Family Care: No Additional living arrangements comments: Lives with spouse and children in [place]. Spiritual care concerns: No Exam Narrative: GENERAL: Well-appearing, well-nourished, and in no acute distress. HEAD: Normocephalic, atraumatic. EYES: PERRLA and EOMI. ENT: Nares clear, no rhinorrhea or epistaxis. Mucous membranes moist. NECK: Supple. CHEST: Clear to auscultation. No respiratory distress. HEART: Regular rate and rhythm. No murmur heard. Normal peripheral pulses. ABDOMEN: Soft, nontender, nondistended, normal active bowel sounds. EXTREMITIES: Normal range of motion. No edema. SKIN: Warm, dry, no rash. NEURO: No focal deficits. Alert and oriented x3. PSYCH: Normal mood and affect. Course Vital Signs Vital signs: Vital Signs Temperature 36.4 C 01/01/24 21:43 Pulse Rate 84 01/01/24 21:43 Respiratory Rate 15 01/01/24 21:43 Blood Pressure 165/75 H 01/01/24 21:43 Pulse Oximetry 97 01/01/24 21:43 Oxygen Delivery Room Air 01/01/24 21:43 Temperature 36.4 C 01/01/24 21:43 Pulse Rate 80
[2024-01-01 22:38] LABS: Procalcitonin 10.1 ng/mL
[2024-01-01] MEDS: MEROPENEM 1 GM/NS 100 ML 1 GM/100 ML BAG IVPB (22:54)
[2024-01-01] MEDS: MORPHINE SULFATE (*CRX) 4 MG/ML INJ IV PUSH (23:39)
[2024-01-02] VITALS (18 sets, daily range): BP systolic 144–183; BP diastolic 64–99; PULSE 71–116; RESP 12–16; TEMP 36.2–37.3; O2SAT 97–100; BMI 22.6
[2024-01-02] MEDS: SODIUM CHLORIDE 0.9% IV 1,000 ML 999 ML IV CONT (00:18)
--- NOTE | 2024-01-02 00:43 | PM.IMHP ---
H&P: HPI History of Present Illness Date/Time: 01/02/24 00:43 Chief Complaint: Generalized malaise. Narrative: This is a 43 yo female with PMHx significant for recurrent UTI, insulin-dependent diabetes mellitus, paraplegia, neurogenic bladder, spinal cord stroke. Patient presents to the emergency room due to generalized malaise, chills, nausea, vomiting, poor per orally intake has been treated in the outpatient setting for urinary tract infection initially with Bactrim and given Macrobid due to worsening of the symptoms patient decided to present to the emergency room. Patient has been admitted for further evaluation management and treatment. XR chest 2V Ordering provider: Jose De Jesus Juan MD History: 43 years Female with . weakness . Comparison: November 28, 2023 FINDINGS: MEDIASTINUM: The cardiac silhouette is not enlarged. LUNGS: No infiltrates, effusions or pneumothorax. OTHER: No free air under the diaphragm. IMPRESSION: No acute cardiopulmonary pathology. Review of Systems Review of Systems: Generalized malaise, chills, urinary tract infection, nausea, vomiting, poor per orally intake. [facility] Past Medical History Medical History (Updated 01/02/24 @ 05:00 by Hung Bear MD) Aortic thrombus Clostridium difficile diarrhea Deep venous thrombosis Diabetic peripheral neuropathy Hyperlipidemia Neurogenic bladder Paraplegia Spinal cord stroke Type 1 diabetes mellitus Surgical History Surgical History History of aorto-femoral bypass Family History Family History Mother Acute myocardial infarction Diabetes mellitus Hypertension Father History of blood clots Social History Social History Social History: Surrogate medical decision maker: Ml Aguilar, mother. Code status: Full code. Smoking packs per day: 1 Smoking cigarettes per day: 20.0 Years smoked: 25 Smoking pack-years: 25.00 Smoking status: Current every day smoker Tobacco type: cigarettes Alcohol intake: former Substance use: current Substance use type: marijuana Last use: 01/01/2024 Do You Feel Safe in your Home?: Yes Lack of Transportation: No Lack of Food: Never True Current Housing: I Have Housing Concerned About Future Housing: No Difficulty Paying Gas/Electric Bills: No Difficulty Paying for Meds: No Currently Unemployed: No Education: Trade/Vocational Certificate Difficulty w/ Childcare or Family Care: No Additional living arrangements comments: Lives with spouse and children in [place]. Spiritual care concerns: No Meds Home Medications and Allergies Home Medications Medication Instructions Recorded Confirmed Type atorvastatin 20 mg tablet 20 mg PO HS 11/10/23 01/02/24 History gabapentin 600 mg tablet 600 mg PO TID 11/10/23 01/02/24 History hydrocodone 10 mg-acetaminophen 1 tablet PO Q4H PRN Pain 11/10/23 01/02/24 History 325 mg tablet trazodone 100 mg tablet 100 mg PO HS 11/10/23 01/02/24 History insulin glargine 100 unit/mL (3 36 unit (0.36 mL) subcut HS #3 mL 11/21/23 01/02/24 Rx mL) subcutaneous pen (Lantus Solostar U-100 Insulin) insulin lispro 100 unit/mL 10 unit (0.1 mL) subcut AC #15 mL 11/21/23 01/02/24 Rx subcutaneous pen (Humalog KwikPen (U-100) Insulin) ondansetron 4 mg disintegrating 4 mg PO Q8H PRN nausea and 12/13/23 01/02/24 Rx tablet vomiting #14 tabs metoclopramide HCl 10 mg tablet 10 mg PO BID #60 tabs 12/31/23 01/02/24 Rx nitrofurantoin 100 mg PO Q12H 5 days #10 caps 12/31/23 01/02/24 Rx monohydrate/macrocrystals 100 mg capsule (Macrobid) propranolol 20 mg tablet 10 mg PO Q12H 01/02/24 01/02/24 History Allergies Allergy/AdvReac Type Severity Reaction Status Date / Time azithromycin Allergy Unknown Hiv
[2024-01-02 00:44] LABS: Appearance Urine Cloudy (Clear); Bacteria Urine Rare /hpf; Bilirubin Urine Negative (Negative); Blood Urine Negative (Negative); Color Urine Yellow (Yellow); Glucose Urine UA Negative (Negative); Ketones Urine Negative (Negative); Leukocyte Esterase Ur 2+ LEU/UL (Negative); Nitrate Urine Negative (Negative); Protein Urine Trace mg/dL (Negative); RBC Urine 0-2 /hpf (0-2); Specific Grav Ur 1.012 (1.001-1.035); Squamous Epithelial Cell Urine Few /hpf (Few); Urobilinogen Urine 0.2 mg/dL (<2.0); WBC Urine 21-50 /hpf (0-3)
[2024-01-02 00:59] LABS: Add Urine Microscopic? YES
[2024-01-02] MEDS: SODIUM CHLORIDE 0.9% IV 1,000 ML 150 ML IV CONT ×2 (01:05→13:16)
[2024-01-02] MEDS: MORPHINE SULFATE (*CRX) 4 MG/ML INJ IV PUSH (01:08)
--- NOTE | 2024-01-02 01:55 | ADMGEN ---
This patient, Jill Villa, was admitted to IMU Room 209-01. Patient/family oriented to hospital policies and general routines including ID bracelet, bed and alarms, visiting hours, pain management, procedures, bathroom and other care routines, personal items, smoking policy, room service/diet, and visiting hours. Information on how to activate the Rapid Response Team has been discussed. Patient/Family are encouraged to report perceived risks to care and to ask questions if they do not understand what they are told or what they should do.
[2024-01-02 02:09] LABS: Alkaline Phosphatase 102 U/L (38-126)
[2024-01-02] MEDS: HYDROmorphone HCL INJ (*CRX) 1 MG/ML SYR IV PUSH ×4 (02:21→23:04)
[2024-01-02 02:22] LABS: Parathyroid Intact 36.3 pg/mL (7.5-53.5)
[2024-01-02] MEDS: ONDANSETRON INJ 4 MG/2 ML VIAL IV PUSH ×2 (02:23→13:17)
[2024-01-02 05:39] LABS: Basophils Absolute Auto 0.1 K/mm3 (0.0-0.1); Basophils Percent Auto 0.8 % (0.2-1.2); Eosinophils Absolute Auto 0.2 K/mm3 (0-0.3); Eosinophils Percent Auto 2.7 % (0-4.4); Hematocrit 33.2 % (37.0-47.0); Hemoglobin 10.8 g/dL (12.0-15.0); Immature Granulocyte Absolute 0.03 K/mm3 (0.00-0.031); Immature Granulocyte Percent A 0.4 % (0-0.5); Lymphocytes Absolute Auto 2.24 K/mm3 (0.9-3.2); Lymphocytes Percent Auto 30.3 % (18.3-44.2); Mean Corpuscular HGB Conc 32.5 g/dl (32-36); Mean Corpuscular Hemoglobin 29.3 pg (26-34); Mean Corpuscular Volume 90.2 fl (80-100); Mean Platelet Volume 9.8 fl (7.4-10.4); Monocytes Absolute Auto 0.5 K/mm3 (0.1-0.6); Monocytes Percent Auto 6.1 % (2.6-8.5); Neutrophils Absolute Auto 4.4 K/mm3 (1.3-6.7); Neutrophils Percent Auto 59.7 % (45.5-73.1); Platelet Count Result 223 k/mm3 (150-375); Red Blood Count 3.68 M/mm3 (4.2-5.4); Red Cell Distribution Width 13.6 % (11.5-14.5); White Blood Count 7.4 K/mm3 (4.5-10.0)
[2024-01-02 05:51] LABS: Anion Gap 9 mmol/L (4-12); Blood Urea Nitrogen 22 mg/dL (7-17); Calcium 12.9 mg/dL (8.4-10.2); Carbon Dioxide 24 mmol/L (22-30); Chloride 104 mmol/L (98-107); Estimated CRCL calculation 63 ml/min; Estimated Glomerular Filt Rate 45; Glucose 143 mg/dL (65-110); Magnesium 1.9 mg/dL (1.6-2.3); Phosphorus 2.9 mg/dL (2.5-4.5); Potassium 3.2 mmol/L (3.4-5.0); Sodium 137 mmol/L (137-145)
[2024-01-02 06:45] LABS: Glucose Point of Care 143 mg/dl (65-105)
[2024-01-02] MEDS: MEROPENEM 1 GM/NS 100 ML 1 GM/100 ML BAG IVPB (06:52)
[2024-01-02] MEDS: PROPRANOLOL HCL 10 MG TABLET PO ×2 (09:13→20:11)
[2024-01-02] MEDS: GABAPENTIN 300 MG CAPSULE 600 MG PO ×3 (09:13→17:19)
--- NOTE | 2024-01-02 11:11 | PM.IMPN ---
Progress Note: A&P Assessment and Plan (1) UTI (urinary tract infection): Code(s): N39.0 - Urinary tract infection, site not specified Status: Acute Assessment and Plan: 01/02/24: Patient came in with weakness and UTI which was being treated on an outpatient basis with Bactrim however she was not getting much relief and had worsening symptoms and they switched her over to Macrobid. She continued to be symptomatic and came in for further evaluation Urine culture from 12/30 showed Enterococcus species on final read. Patient was put on meropenem overnight and we will switch that to vancomycin today considering susceptibilities and penicillin allergy. History of multiple UTIs likely due to chronic Marcos New set of blood and urine cultures are pending (2) Neurogenic bladder: Code(s): N31.9 - Neuromuscular dysfunction of bladder, unspecified Status: Acute Assessment and Plan: 01/02/24: Chronic Marcos due to paraplegia from spinal cord stroke (3) Hypercalcemia: Code(s): E83.52 - Hypercalcemia Status: Acute Assessment and Plan: 01/02/24: Patient has hypercalcemia and initially presented with calcium level of greater than 14, today calcium levels 12.9 Vitamin-D level pending, PTH was within normal range 36.3 We will get an ultrasound of the thyroid Questionable malignancy??, CT scan shown stable probable circumferential wall thickening focally at the distal rectum with infiltration of presacral fat suspicious for colonic malignancy. This was noted on previous scans as well. GI consulted for additional workup (4) Paraplegia: Code(s): G82.20 - Paraplegia, unspecified Status: Chronic Assessment and Plan: 01/02/24: Of note, patient suffered a spinal cord stroke (5) Pressure ulcer of sacral region: Qualifiers: Pressure injury stage: unspecified pressure injury stage Qualified Code(s): L89.159 - Pressure ulcer of sacral region, unspecified stage Code(s): L89.159 - Pressure ulcer of sacral region, unspecified stage Status: Chronic Assessment and Plan: 01/02/24: Abdomen pelvis CT shown sacral decubitus ulcer with probable focal osteomyelitis of S6 which is unchanged from previous imaging (6) Type 1 diabetes mellitus: Code(s): E10.9 - Type 1 diabetes mellitus without complications Status: Chronic Assessment and Plan: 01/02/24: Blood glucose ranging 138-143 Last hemoglobin A1c on 11/11/2023 was 5.7 Lantus 36 units ordered for at bedtime Mealtime replacement insulin ordered 10 units with meals Accu-Cheks AC and HS Hypoglycemic protocol in place Will change patient over to a diabetic diet Time Spent With Patient Time with patient: Greater than 35 minutes Subjective Date/time seen: 01/02/24 11:11 Interval history: Interval history: This is a 43-year-old female who presented to the hospital on 01/01/2024 with weakness and UTI. Patient was recently seen and treated for this urinary tract infection and initially placed on Bactrim however she had worsening symptoms and was changed over to Macrobid. She is not having any relief with either antibiotic and presents for further workup. Workup in the hospital included a chest x-ray which was negative. Abdomen pelvis CT which shown small nonobstructing renal stones and small area urinary bladder stones, no hydronephrosis or ureteral stone seen, stable probable wall thickening at the distal rectum with infiltration of pre sacral fat, sacral decubitus ulcer with probable focal osteomyelitis of S6 which is unchanged from previous imaging. Initial labs shown a normal white blood count of 8.8, hemoglobin 10.9, sodium 136, creatinine 1.3, EGFR 45, calcium 13.7, lactic acid 0, procalcitonin 10.1. UA was obtained and showed 2+ leukocyte, 21-50 WBC, rare bacteria. Urine and blood cultures were obtained and are pending. Her urine culture from 12/31/2023 resulted with Enterococcus
[2024-01-02 12:29] LABS: Glucose Point of Care 157 mg/dl (65-105)
[2024-01-02] MEDS: INSULIN ASPART (*BKC) 100 UNITS/ML 10 UNITS SUB-Q (13:13)
[2024-01-02] MEDS: VANCOMYCIN 2,000 MG/NS 500 ML 2,000 MG/500 ML BAG 250 MG IVPB (13:14)
[2024-01-02 16:21] LABS: Glucose Point of Care 109 mg/dl (65-105)
--- NOTE | 2024-01-02 17:27 | PC.NURSE ---
This patient, Jill Villa, was transferred to [[id number] ] on 01/02/24 at 1727. Personal belongings sent with patient. Report given to [ REJI Hankins @ [phone]]. Appropriate documentation sent with patient.
--- NOTE | 2024-01-02 17:50 | WPDGICN ---
Assessment and Plan Assessment and plan (1) Abnormality of rectum: Code(s): K62.9 - Disease of anus and rectum, unspecified Status: Acute Assessment and Plan: will need colonoscopy however still with nausea, she won't be able to tolerate bowel prep just yet plan is to treat urosepsis with abx and hoping that we can do colonoscopy Saturday if no more emesis (2) Intractable nausea and vomiting: Code(s): R11.2 - Nausea with vomiting, unspecified Status: Acute Assessment and Plan: probably due to complicated uti antiemetics, protonix may need also egd, will follow hospital course (3) Sepsis: Code(s): A41.9 - Sepsis, unspecified organism Status: Acute Assessment and Plan: on iv abx (4) Complicated urinary tract infection: Code(s): N39.0 - Urinary tract infection, site not specified Status: Acute (5) Neurogenic bladder: Code(s): N31.9 - Neuromuscular dysfunction of bladder, unspecified Status: Acute (6) Paraplegia: Code(s): G82.20 - Paraplegia, unspecified Status: Chronic GI Consult Note Consult date/time: 01/02/24 17:50 Reason for consult: n/v, abnormal colon by ct scan HPI: Jill Villa is a 43 year old female with medical history of recurrent UTI, insulin-dependent diabetes mellitus, paraplegia, neurogenic bladder, spinal cord stroke. She has been treated orally for UTI but has been feeling sicker and now with intractable nausea and vomiting, finally admitted, started on iv abx. She had CT scan that showed Small nonobstructing renal stones and small areas urinary bladder stones. No hydronephrosis or ureteral stones seen. Stable probable circumferential wall thickening focally the distal rectum with infiltration of presacral fat. Underlying colonic malignancy not excluded. Sacral decubitus ulcer with probable focal osteomyelitis of S6. She never had scopes. Also burning sensation in chest with emesis. Review of Systems Constitutional: Constitutional: Reports chills Comments: malaise Eyes: Eyes: Denies blurry vision ENT: Reports Normal hearing present Cardiovascular: Cardiovascular: Denies chest pain Respiratory: Respiratory: Denies cough Gastrointestinal: Gastrointestinal: Reports nausea and Reports vomiting Genitourinary: Comments: uti, neurogenic bladder Neurologic: Comments: paraplegia Psychiatric: Psychiatric: Denies behavioral changes PMFSH Past Medical History Medical History (Updated 01/02/24 @ 17:54 by Kun Montes De Oca MD) Abnormality of rectum Aortic thrombus Clostridium difficile diarrhea Deep venous thrombosis Diabetic peripheral neuropathy Hyperlipidemia Intractable nausea and vomiting Neurogenic bladder Paraplegia Spinal cord stroke Type 1 diabetes mellitus Surgical History Surgical History History of aorto-femoral bypass Family History Family History Mother Acute myocardial infarction Diabetes mellitus Hypertension Father History of blood clots Social History Social History Social History: Surrogate medical decision maker: Ml Aguilar, mother. Code status: Full code. Smoking packs per day: 1 Smoking cigarettes per day: 20.0 Years smoked: 25 Smoking pack-years: 25.00 Smoking status: Current every day smoker Tobacco type: cigarettes Alcohol intake: former Substance use: current Substance use type: marijuana Last use: 01/01/2024 Do You Feel Safe in your Home?: Yes Lack of Transportation: No Lack of Food: Never True Current Housing: I Have Housing Concerned About Future Housing: No Difficulty Paying Gas/Electric Bills: No Difficulty Paying for Meds: No Currently Unemployed: No Education: Trade/Vocational Certificate
[2024-01-02] MEDS: ATORVASTATIN 20 MG TABLET PO (20:11)
[2024-01-02] MEDS: METOCLOPRAMIDE HCL INJ 10 MG/2 ML VIAL 5 MG IV PUSH (20:14)
[2024-01-02] MEDS: traZODone HCL 50 MG TABLET 100 MG PO (20:14)
[2024-01-02 23:23] LABS: Glucose Point of Care 86 mg/dl (65-105)
[2024-01-03 05:13] LABS: Estimated CRCL calculation 80 ml/min; Estimated Glomerular Filt Rate > 60
[2024-01-03] MEDS: VANCOMYCIN 1,500 MG/NS 500 ML 1,500 MG/500 ML BAG 250 MG IVPB (06:14)
[2024-01-03] MEDS: SODIUM CHLORIDE 0.9% IV 1,000 ML 100 ML IV CONT ×2 (06:45→20:33)
[2024-01-03 06:55] VITALS: BP 160/86; PULSE 111; RESP 16; TEMP 36.4; O2SAT 97
[2024-01-03 07:46] LABS: Glucose Point of Care 116 mg/dl (65-105)
--- NOTE | 2024-01-03 07:49 | P.PNIM_ITS ---
Progress Note: A&P Assessment and Plan (1) UTI (urinary tract infection): Code(s): N39.0 - Urinary tract infection, site not specified Status: Acute Assessment and Plan: 01/02/24: * Patient came in with weakness and UTI which was being treated on an outpatient basis with Bactrim however she was not getting much relief and had worsening symptoms and they switched her over to Macrobid. She continued to be symp tomatic and came in for further evaluation * Urine culture from 12/30 showed Enterococcus species on final read. Patient was put on meropenem overnight and we will switch that to vancomycin today considering susceptibilities and penicillin allergy. 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 This was noted on previous scans as well. * GI consulted for additional workup 01/03/24: * GI recommending colonoscopy once Nausea and vomiting resolves. May need EGD as well. GI will continue to follow. * US of the thyroid revealed nodules at the inferior aspect of both the right and left thyroid lobes * Will get US guided biopsy of thyroid nodule * Patient has decubitus ulcer with osteomyelitis changes which could also explain bump in calcium level versus her immobility due to paraplegia * Vitamin D level is pending (4) Paraplegia: Code(s): G82.20 - Paraplegia, unspecified Status: Chronic Assessment and Plan: 01/02/24: * Of note, patient suffered a spinal cord stroke 01/03/24: * PT and OT ordered. Patient has been undergoing therapy since spinal cord stroke as she was told that she could regain back her mobility. (5) Pressure ulcer of sacral region: Qualifiers: Pressure injury stage: unspecified pressure injury stage Qualified Code(s): L89.159 - Pressure ulcer of sacral region, unspecified stage Code(s): L89.159 - Pressure ulcer of sacral region, unspecified stage Status: Chronic Assessment and Plan: 01/02/24: * Abdomen pelvis CT shown sacral decubitus ulcer with probable focal osteomyelitis of S6 which is unchanged from previous imaging 01/03/24: * Dressing changes daily (6) Type 1 diabetes mellitus: Code(s): E10.9 - Type 1 diabetes mellitus without complications Status: Chronic Assessment and Plan: 01/02/24: * Blood glucose ranging 138-143 * Last hemoglobin A1c on 11/11/2023 was 5.7 * Lantus 36 units ordered for at bedtime * Mealtime replacement insulin ordered 10 units with meals * Accu-Cheks AC and HS * Hypoglycemic protocol in place * Will change patient over to a diabetic diet
--- NOTE | 2024-01-03 07:49 | PM.IMPN ---
Progress Note: A&P Assessment and Plan (1) UTI (urinary tract infection): Code(s): N39.0 - Urinary tract infection, site not specified Status: Acute Assessment and Plan: 01/02/24: Patient came in with weakness and UTI which was being treated on an outpatient basis with Bactrim however she was not getting much relief and had worsening symptoms and they switched her over to Macrobid. She continued to be symptomatic and came in for further evaluation Urine culture from 12/30 showed Enterococcus species on final read. Patient was put on meropenem overnight and we will switch that to vancomycin today considering susceptibilities and penicillin allergy. 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 This was noted on previous scans as well. GI consulted for additional workup 01/03/24: GI recommending colonoscopy once Nausea and vomiting resolves. May need EGD as well. GI will continue to follow. US of the thyroid revealed nodules at the inferior aspect of both the right and left thyroid lobes Will get US guided biopsy of thyroid nodule Patient has decubitus ulcer with osteomyelitis changes which could also explain bump in calcium level versus her immobility due to paraplegia Vitamin D level is pending (4) Paraplegia: Code(s): G82.20 - Paraplegia, unspecified Status: Chronic Assessment and Plan: 01/02/24: Of note, patient suffered a spinal cord stroke 01/03/24: PT and OT ordered. Patient has been undergoing therapy since spinal cord stroke as she was told that she could regain back her mobility. (5) Pressure ulcer of sacral region: Qualifiers: Pressure injury stage: unspecified pressure injury stage Qualified Code(s): L89.159 - Pressure ulcer of sacral region, unspecified stage Code(s): L89.159 - Pressure ulcer of sacral region, unspecified stage Status: Chronic Assessment and Plan: 01/02/24: Abdomen pelvis CT shown sacral decubitus ulcer with probable focal osteomyelitis of S6 which is unchanged from previous imaging 01/03/24: Dressing changes daily (6) Type 1 diabetes mellitus: Code(s): E10.9 - Type 1 diabetes mellitus without complications Status: Chronic Assessment and Plan: 01/02/24: Blood glucose ranging 138-143 Last hemoglobin A1c on 11/11/2023 was 5.7 Lantus 36 units ordered for at bedtime Mealtime replacement insulin ordered 10 units with meals Accu-Cheks AC and HS Hypoglycemic protocol in place Will change patient over to a diabetic diet 01/03/24: No change to current treatment plan Time Spent With Patient Time with patient: 25 - 35 minutes Subjective Date/time seen: 01/03/24 07:49 Interval history: Interval history: This is a 43-year-old female who presented to the hospital on 01/01/2024 with weakness and UTI. Patient was recently seen and treated for this urinary tract infection and initially placed on Bactrim however she had worseni
--- NOTE | 2024-01-03 08:02 | WPDGIPROGNO ---
Progress Note: A&P Assessment and Plan (1) Abnormality of rectum: Code(s): K62.9 - Disease of anus and rectum, unspecified Status: Acute Assessment and Plan: never had colonoscopy probably Saturday, still some nause and unable to tolerate bowel prep (2) Intractable nausea and vomiting: Code(s): R11.2 - Nausea with vomiting, unspecified Status: Acute Assessment and Plan: improving, antiemetics advance diet as tolerated (3) Sepsis: Code(s): A41.9 - Sepsis, unspecified organism Status: Acute Assessment and Plan: probably from uti, on treatment (4) Paraplegia: Code(s): G82.20 - Paraplegia, unspecified Status: Chronic (5) Neurogenic bladder: Code(s): N31.9 - Neuromuscular dysfunction of bladder, unspecified Status: Acute (6) UTI (urinary tract infection): Code(s): N39.0 - Urinary tract infection, site not specified Status: Acute (7) Pressure ulcer of sacral region: Qualifiers: Pressure injury stage: unspecified pressure injury stage Qualified Code(s): L89.159 - Pressure ulcer of sacral region, unspecified stage Code(s): L89.159 - Pressure ulcer of sacral region, unspecified stage Status: Chronic Subjective Date/time seen: 01/03/24 08:02 Interval history: still nauseous but overall better Review of Systems Review of Systems: All systems reviewed & are unremarkable except as noted in HPI and below Exam Narrative: General: In no acute distress, well nourished Head: atraumatic, no encephalopathy Eyes: EOMI, PERRLA, sclera clear ENT: moist mucous membranes Neck: supple, no JVD, no adenopathy, trachea midline Cardiac: Normal S1 and S2. RRR Respiratory: Lungs clear to auscultation, no adventitious lung sounds, currently on room air Gastrointestinal: soft, non-distended, non-tender, hypoactive bowel sounds. : Marcos catheter in place Extremities: paraplegic at baseline Skin: decubitus ulcer coccyx Neuro: Alert and oriented x4, paraplegia. Psych: anxious Objective Data Vital Signs Vital Signs: Vital Signs - 24 hr 01/02/24 09:13 01/02/24 10:00 01/02/24 11:28 Temperature 97.2 F L Pulse Rate 82 76 82 Respiratory Rate 16 Blood Pressure 168/77 H Pulse Oximetry 100 Oxygen Delivery 01/02/24 12:00 01/02/24 14:00 01/02/24 15:34 Temperature 97.6 F Pulse Rate 81 81 86 Respiratory Rate 16 Blood Pressure 151/64 H Pulse Oximetry 99 Oxygen Delivery 01/02/24 17:44 01/02/24 20:11 01/02/24 20:23 Temperature 98.9 F 99.2 F Pulse Rate 98 100 116 H Respiratory Rate 16 16 Blood Pressure 175/78 H 161/82 H Pulse Oximetry 100 98 Oxygen Delivery 01/02/24 20:00 01/03/24 06:55 Temperature 97.6 F Pulse Rate 111 H Respiratory Rate 16 Blood Pressure 160/86 H Pulse Oximetry 97 Oxygen Delivery Room Air Intake/Output Intake/Output: Intake & Output 12/31/23 01/01/24 01/02/24 01/03/24 23:59 23:59 23:59 23:59 Intake Total 1100 3465 1315 Output Total 2900 700 Balance 1100 565 615 Meds/Results Medications: Active Medications Generic Name Dose Route Start Last Admin Trade Name Freq PRN Reason Stop Dose Admin Acetaminophen 650 mg 01/02/24 00:46 Acetaminophen 325 Mg Tablet PO Q4H PRN Mild Pain (1-3) or Fever Hydrocodone Bitart/Acetaminophen 1 tab 01/02/24 04:42 Hydrocodone/Acetaminophen (*Crx) 10-325 Mg Tablet PO Q4H PRN Pain 4-6 Atorvastatin Calcium 20 mg 01/02/24 21:00 01/02/24 20:11 Atorvastatin 20 Mg Tablet PO 20 mg HS SUSANNE Administration Dextrose 12.5 gm 01/02/24 05:12 Dextrose 50% 25 Gm/50 Ml Syringe IV PUSH PRN PRN Hypoglycemia Protocol Gabapentin 600 mg 01/02/24 09:00 01/02/24 17:19 Gabapentin 300 Mg Capsule PO 600 mg TID SUSANNE Administration Glucagon 1 mg 01/02/24 05:12 Glucagon For Inj 1 Mg Vial IM PRN PRN Hypoglycemia Protocol
[2024-01-03 08:37] LABS: Basophils Percent Auto 0.5 % (0.2-1.2); Eosinophils Percent Auto 0.2 % (0-4.4); Hematocrit 30.9 % (37.0-47.0); Immature Granulocyte Absolute 0.03 K/mm3 (0.00-0.031); Immature Granulocyte Percent A 0.5 % (0-0.5); Lymphocytes Absolute Auto 0.38 K/mm3 (0.9-3.2); Lymphocytes Percent Auto 6.2 % (18.3-44.2); Mean Corpuscular HGB Conc 32.4 g/dl (32-36); Mean Corpuscular Hemoglobin 29.7 pg (26-34); Mean Corpuscular Volume 91.7 fl (80-100); Mean Platelet Volume 10.2 fl (7.4-10.4); Monocytes Absolute Auto 0.2 K/mm3 (0.1-0.6); Monocytes Percent Auto 3.3 % (2.6-8.5); Neutrophils Absolute Auto 5.5 K/mm3 (1.3-6.7); Neutrophils Percent Auto 89.3 % (45.5-73.1); Platelet Count Result 192 k/mm3 (150-375); Red Blood Count 3.37 M/mm3 (4.2-5.4); Red Cell Distribution Width 13.8 % (11.5-14.5); White Blood Count 6.1 K/mm3 (4.5-10.0)
[2024-01-03 09:20] LABS: Alanine Aminotransferase 11 U/L (6-35); Albumin Level 3.4 g/dL (3.5-5.1); Alkaline Phosphatase 79 U/L (38-126); Anion Gap 10 mmol/L (4-12); Aspartate Amino Transferase 15 U/L (14-36); Bilirubin,Total 0.4 mg/dL (0.2-1.3); Blood Urea Nitrogen 16 mg/dL (7-17); Calcium 12.4 mg/dL (8.4-10.2); Carbon Dioxide 20 mmol/L (22-30); Chloride 105 mmol/L (98-107); Estimated CRCL calculation 80 ml/min; Estimated Glomerular Filt Rate > 60; Glucose 115 mg/dL (65-110); Magnesium 1.8 mg/dL (1.6-2.3); Potassium 3.3 mmol/L (3.4-5.0); Sodium 135 mmol/L (137-145)
[2024-01-03 09:54] VITALS: PULSE 110
[2024-01-03] MEDS: NITROFURANTOIN MONOHYD MACROCR 100 MG CAP PO ×2 (09:54→20:24)
[2024-01-03] MEDS: GABAPENTIN 300 MG CAPSULE 600 MG PO ×3 (09:54→17:53)
[2024-01-03] MEDS: PROPRANOLOL HCL 10 MG TABLET PO ×2 (09:54→20:21)
[2024-01-03] MEDS: HYDROmorphone HCL INJ (*CRX) 1 MG/ML SYR IV PUSH ×4 (09:56→20:57)
[2024-01-03] MEDS: PANTOPRAZOLE SODIUM IV 40 MG VIAL IV PUSH (09:59)
[2024-01-03 11:52] LABS: Glucose Point of Care 148 mg/dl (65-105)
[2024-01-03] MEDS: INSULIN ASPART (*BKC) 100 UNITS/ML 10 UNITS SUB-Q (12:05)
--- NOTE | 2024-01-03 12:26 | PCPTNOTE ---
Spoke with Current hospitalist, Tanvi Bradshaw APRN, Pt ok to come off bedrest. Will make RN aware.
[2024-01-03 13:41] VITALS: BMI 10.0
[2024-01-03 14:53] VITALS: BP 128/62; PULSE 92; RESP 16; TEMP 36.4; O2SAT 99
[2024-01-03] MEDS: HYDROcodone/acetaminophen (*CRX) 10-325 MG TABLET 1 TAB PO (15:17)
[2024-01-03 16:52] LABS: Glucose Point of Care 113 mg/dl (65-105)
--- NOTE | 2024-01-03 18:29 | PC.NURSE ---
This afternoon, tech reported to the RN that upon entering the patients room she saw a cloud of smoke and a vape in the bed. Shortly after, RN entered room and did not see any vape in the bed or any smoke in the room. RN asked the patient if she was using a vape in the room, patient stated she was not, and said it could be her perfume bottle she was spraying. RN left the room to report to the foam charger. senior informatica developer then entered the room, and she received the same response from the patient. senior informatica developer provided education regarding hospital policy and vaping/smoking in the room. RN did note a pocket knife in the patients possession at the bedside, which was taken and locked in the patients cabinet in the patients room.
[2024-01-03 20:21] VITALS: PULSE 100
[2024-01-03] MEDS: traZODone HCL 50 MG TABLET 100 MG PO (20:21)
[2024-01-03] MEDS: ATORVASTATIN 20 MG TABLET PO (20:21)
[2024-01-03 20:28] VITALS: BP 135/63; PULSE 100; RESP 16; TEMP 36.6; O2SAT 100
[2024-01-03] MEDS: INSULIN GLARGINE (*BKC) 100 UNITS/ML 36 UNITS SUB-Q (20:34)
[2024-01-03 21:17] LABS: Glucose Point of Care 186 mg/dl (65-105)
[2024-01-04 04:44] VITALS: BP 151/62; PULSE 100; RESP 16; TEMP 37.1; O2SAT 97
[2024-01-04] MEDS: HYDROmorphone HCL INJ (*CRX) 1 MG/ML SYR IV PUSH ×5 (05:58→20:36)
[2024-01-04 06:18] LABS: Basophils Percent Auto 0.5 % (0.2-1.2); Eosinophils Absolute Auto 0.1 K/mm3 (0-0.3); Eosinophils Percent Auto 1.4 % (0-4.4); Hematocrit 29.6 % (37.0-47.0); Hemoglobin 9.5 g/dL (12.0-15.0); Immature Granulocyte Absolute 0.02 K/mm3 (0.00-0.031); Immature Granulocyte Percent A 0.5 % (0-0.5); Lymphocytes Absolute Auto 0.82 K/mm3 (0.9-3.2); Lymphocytes Percent Auto 19.8 % (18.3-44.2); Mean Corpuscular HGB Conc 32.1 g/dl (32-36); Mean Corpuscular Hemoglobin 29.1 pg (26-34); Mean Corpuscular Volume 90.8 fl (80-100); Monocytes Absolute Auto 0.2 K/mm3 (0.1-0.6); Monocytes Percent Auto 5.8 % (2.6-8.5); Platelet Count Result 152 k/mm3 (150-375); Red Blood Count 3.26 M/mm3 (4.2-5.4); Red Cell Distribution Width 13.5 % (11.5-14.5); White Blood Count 4.1 K/mm3 (4.5-10.0)
[2024-01-04 06:32] LABS: Alanine Aminotransferase 17 U/L (6-35); Albumin Level 3.2 g/dL (3.5-5.1); Alkaline Phosphatase 76 U/L (38-126); Anion Gap 7 mmol/L (4-12); Aspartate Amino Transferase 22 U/L (14-36); Bilirubin,Total 0.2 mg/dL (0.2-1.3); Blood Urea Nitrogen 18 mg/dL (7-17); Calcium 10.8 mg/dL (8.4-10.2); Carbon Dioxide 24 mmol/L (22-30); Chloride 105 mmol/L (98-107); Estimated CRCL calculation 73 ml/min; Estimated Glomerular Filt Rate 55; Glucose 130 mg/dL (65-110); Potassium 3.5 mmol/L (3.4-5.0); Sodium 136 mmol/L (137-145)
--- NOTE | 2024-01-04 07:43 | PM.IMPN ---
Progress Note: A&P Assessment and Plan (1) Abnormality of rectum: Code(s): K62.9 - Disease of anus and rectum, unspecified Status: Acute Assessment and Plan: Pt with significant nausea and vomiting on admission -resolved -CT Stable probable circumferential wall thickening focally the distal rectum with infiltration of presacral fat. Underlying colonic malignancy not excluded. -Plan for colonoscopy on saturday with GI, no hx of colonoscopy (2) UTI (urinary tract infection): Code(s): N39.0 - Urinary tract infection, site not specified Status: Acute Assessment and Plan: Initial UA positive for enterococcus but recent one is negative -was on vanc but transitioned to oral macrobid -has neurogenic bladder and chronic foleywhich has been changed on admission -blood cultures NGTD (3) Pressure ulcer of sacral region: Qualifiers: Pressure injury stage: unspecified pressure injury stage Qualified Code(s): L89.159 - Pressure ulcer of sacral region, unspecified stage Code(s): L89.159 - Pressure ulcer of sacral region, unspecified stage Status: Chronic Assessment and Plan: Noted initially October, recent CT with probable focal osteomyelitis of S6 and she also has necrotic tissues on bilateral toes -Sees Dr. 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 see above US bx of thyroid complete, pathology pending Pt also has decubitus ulcer with probable osteo (6) Paraplegia: Code(s): G82.20 - Paraplegia, unspecified Status: Chronic Assessment and Plan: Pt has a hx of spinal stroke which caused paraplegia (7) Type 1 diabetes mellitus: Code(s): E10.9 - Type 1 diabetes mellitus without complications Status: Chronic Assessment and Plan: Last glucose 130--good control -continue lantus 36u with 10u novolog TIDWM -This will need to be adjusted when pt starts her colonoscopy prep. Since she is type 1 would not hold entirely but will need to adjust. Will do 1/2 dose of lantus tonight in preparation of liquid diet tomorrow. Her meal time should be adjusted once she goes to clear liquids. (8) Anemia: Code(s): D64.9 - Anemia, unspecified Status: Acute Assessment and Plan: Noted started earlier this year -will run anemia labs with tomorrows AM labs -no signs of current blood loss Time Spent With Patient Time with patient: 25 - 35 minutes Subjective Date/time seen: 01/04/24 07:43 Interval history: Pt is a 43-year-old female here for mulitple complaints. Pt is doing much better today--she is eating and drinking fine with no nausea or vomiting. She denies CP, SOB, fevers, or constipation. Last BM today. She has a hx of osteomyelitis and sees Dr. Roman for this. She also has black toes which are improving since her sx. Review of Systems Review of Systems: All systems reviewed & are unremarkable except as noted in HPI and below Exam Narrative: General: Well developed well nourished patient in NAD HEENT: normocephalic Neck: supple Neuro: Alert and oriented x4. LE with exam findings consistent with paraplegia. UE moves spontaniously CV:RRR Resp:CTA Abd: Soft, non distended. No pain to palpation. Positive bowel sounds Extremities: dry,
[2024-01-04 07:49] LABS: Glucose Point of Care 151 mg/dl (65-105)
[2024-01-04 08:05] VITALS: PULSE 88
[2024-01-04] MEDS: PROPRANOLOL HCL 10 MG TABLET PO ×2 (08:05→20:37)
[2024-01-04] MEDS: NITROFURANTOIN MONOHYD MACROCR 100 MG CAP PO ×2 (08:05→20:37)
[2024-01-04] MEDS: HYDROcodone/acetaminophen (*CRX) 10-325 MG TABLET 1 TAB PO (08:05)
[2024-01-04] MEDS: SODIUM CHLORIDE 0.9% IV 1,000 ML 100 ML IV CONT ×2 (08:06→18:46)
[2024-01-04] MEDS: PANTOPRAZOLE SODIUM IV 40 MG VIAL IV PUSH (08:06)
[2024-01-04] MEDS: GABAPENTIN 300 MG CAPSULE 600 MG PO ×3 (08:06→17:14)
[2024-01-04] MEDS: INSULIN ASPART (*BKC) 100 UNITS/ML 10 UNITS SUB-Q ×2 (08:34→17:15)
[2024-01-04 11:51] LABS: Glucose Point of Care 73 mg/dl (65-105)
--- NOTE | 2024-01-04 13:19 | WPDGIPROGNO ---
Progress Note: A&P Assessment and Plan (1) Abnormality of rectum: Code(s): K62.9 - Disease of anus and rectum, unspecified Status: Acute Assessment and Plan: never had colonoscopy no more nausea, she will be able to tolerate bowel prep, will change to liquid diet today primary team will lower dose of insulin (2) Intractable nausea and vomiting: Code(s): R11.2 - Nausea with vomiting, unspecified Status: Acute Assessment and Plan: no more nausea and tolerating diet some gerd symptom and never had egd, will do one as well on Saturday (3) Sepsis: Code(s): A41.9 - Sepsis, unspecified organism Status: Acute Assessment and Plan: probably from uti, resolved (4) Paraplegia: Code(s): G82.20 - Paraplegia, unspecified Status: Chronic (5) Neurogenic bladder: Code(s): N31.9 - Neuromuscular dysfunction of bladder, unspecified Status: Acute (6) UTI (urinary tract infection): Code(s): N39.0 - Urinary tract infection, site not specified Status: Acute (7) Pressure ulcer of sacral region: Qualifiers: Pressure injury stage: unspecified pressure injury stage Qualified Code(s): L89.159 - Pressure ulcer of sacral region, unspecified stage Code(s): L89.159 - Pressure ulcer of sacral region, unspecified stage Status: Chronic Subjective Date/time seen: 01/04/24 13:19 Interval history: nausea is going and feeling much better several family members at bedside Review of Systems Review of Systems: All systems reviewed & are unremarkable except as noted in HPI and below Exam Narrative: General: In no acute distress, well nourished Head: atraumatic, no encephalopathy Eyes: EOMI, PERRLA, sclera clear ENT: moist mucous membranes Neck: supple, no JVD, no adenopathy Cardiac: Normal S1 and S2. RRR Respiratory: Lungs clear to auscultation Gastrointestinal: soft, non-distended, non-tender, normal bowel sounds. : Marcos catheter in place Extremities: paraplegic at baseline Skin: decubitus ulcer coccyx Neuro: Alert and oriented x4, paraplegia. Psych: good spirits Objective Data Vital Signs Vital Signs: Vital Signs - 24 hr 01/03/24 13:41 01/03/24 14:53 01/03/24 20:21 Temperature 97.6 F Pulse Rate 92 100 Respiratory Rate 16 Blood Pressure 128/62 Pulse Oximetry 99 Oxygen Delivery Room Air 01/03/24 20:28 01/03/24 20:00 01/04/24 04:44 Temperature 97.8 F 98.7 F Pulse Rate 100 100 Respiratory Rate 16 16 Blood Pressure 135/63 151/62 H Pulse Oximetry 100 97 Oxygen Delivery Room Air 01/04/24 08:05 01/04/24 08:15 Temperature Pulse Rate 88 Respiratory Rate Blood Pressure Pulse Oximetry Oxygen Delivery Room Air Intake/Output Intake/Output: Intake & Output 01/01/24 01/02/24 01/03/24 01/04/24 23:59 23:59 23:59 23:59 Intake Total 1100 3465 3035 1600 Output Total 2900 1700 1000 Balance 5597 743 5551 600 Meds/Results Medications: Active Medications Generic Name Dose Route Start Last Admin Trade Name Freq PRN Reason Stop Dose Admin Acetaminophen 650 mg 01/02/24 00:46 Acetaminophen 325 Mg Tablet PO Q4H PRN Mild Pain (1-3) or Fever Hydrocodone Bitart/Acetaminophen 1 tab 01/02/24 04:42 01/04/24 08:05 Hydrocodone/Acetaminophen (*Crx) 10-325 Mg Tablet PO 1 tab Q4H PRN Administration Pain 4-6 Atorvastatin Calcium 20 mg 01/02/24 21:00 01/03/24 20:21 Atorvastatin 20 Mg Tablet PO 20 mg HS SUSANNE Administration Dextrose 12.5 gm 01/02/24 05:12 Dextrose 50% 25 Gm/50 Ml Syringe IV PUSH PRN PRN Hypoglycemia Protocol Gabapentin 600 mg 01/02/24 09:00 01/04/24 12:45 Gabapentin 300 Mg Capsule PO 600 mg TID SUSANNE Administration Glucagon 1 mg 01/02/24 05:12 Glucagon For Inj 1 Mg Vial IM PRN PRN Hypoglycemia Protocol Glucose 15 gm 01/02/24 05:12 Glucose Oral Gel 15 Gm Of Glucs
[2024-01-04 14:00] VITALS: BP 158/60; PULSE 89; RESP 16; TEMP 36.9; O2SAT 98
[2024-01-04 16:52] LABS: Glucose Point of Care 157 mg/dl (65-105)
[2024-01-04 20:00] VITALS: PULSE 100; RESP 16; O2SAT 100
[2024-01-04 20:18] VITALS: BP 140/57; PULSE 100; RESP 16; TEMP 36.8; O2SAT 100
[2024-01-04] MEDS: INSULIN GLARGINE (*BKC) 100 UNITS/ML 18 UNITS SUB-Q (20:36)
[2024-01-04 20:37] VITALS: PULSE 100
[2024-01-04] MEDS: ATORVASTATIN 20 MG TABLET PO (20:37)
[2024-01-04] MEDS: traZODone HCL 50 MG TABLET 100 MG PO (20:37)
[2024-01-04 23:10] LABS: Glucose Point of Care 125 mg/dl (65-105)
[2024-01-05] MEDS: HYDROmorphone HCL INJ (*CRX) 1 MG/ML SYR IV PUSH ×7 (00:37→22:10)
[2024-01-05] MEDS: SODIUM CHLORIDE 0.9% IV 1,000 ML 100 ML IV CONT ×2 (04:33→21:04)
[2024-01-05 06:01] LABS: Basophils Percent Auto 0.6 % (0.2-1.2); Eosinophils Absolute Auto 0.1 K/mm3 (0-0.3); Eosinophils Percent Auto 2.6 % (0-4.4); Hematocrit 25.6 % (37.0-47.0); Hemoglobin 8.4 g/dL (12.0-15.0); Immature Granulocyte Absolute 0.03 K/mm3 (0.00-0.031); Immature Granulocyte Percent A 0.6 % (0-0.5); Lymphocytes Absolute Auto 1.52 K/mm3 (0.9-3.2); Lymphocytes Percent Auto 28.1 % (18.3-44.2); Mean Corpuscular HGB Conc 32.8 g/dl (32-36); Mean Corpuscular Hemoglobin 29.9 pg (26-34); Mean Corpuscular Volume 91.1 fl (80-100); Mean Platelet Volume 10.3 fl (7.4-10.4); Monocytes Absolute Auto 0.4 K/mm3 (0.1-0.6); Neutrophils Absolute Auto 3.3 K/mm3 (1.3-6.7); Neutrophils Percent Auto 61.1 % (45.5-73.1); Platelet Count Result 136 k/mm3 (150-375); Red Blood Count 2.81 M/mm3 (4.2-5.4); Red Cell Distribution Width 13.5 % (11.5-14.5); White Blood Count 5.4 K/mm3 (4.5-10.0)
[2024-01-05 06:07] LABS: Alanine Aminotransferase 20 U/L (6-35); Albumin Level 2.9 g/dL (3.5-5.1); Alkaline Phosphatase 77 U/L (38-126); Anion Gap 7 mmol/L (4-12); Aspartate Amino Transferase 25 U/L (14-36); Bilirubin,Total 0.2 mg/dL (0.2-1.3); Blood Urea Nitrogen 19 mg/dL (7-17); Calcium 9.8 mg/dL (8.4-10.2); Carbon Dioxide 21 mmol/L (22-30); Chloride 108 mmol/L (98-107); Estimated CRCL calculation 80 ml/min; Estimated Glomerular Filt Rate > 60; Glucose 127 mg/dL (65-110); Potassium 3.4 mmol/L (3.4-5.0); Sodium 136 mmol/L (137-145)
[2024-01-05 06:33] LABS: Iron 11 ug/dL (37-170); Transferrin 143 mg/dL (206-381)
[2024-01-05 06:43] LABS: Percent Iron Saturation 5 % (20-50)
[2024-01-05 07:12] LABS: Folic Acid 12.1 ng/mL (2.76->20)
[2024-01-05 07:30] VITALS: BP 124/60; PULSE 96; RESP 16; TEMP 36.5
[2024-01-05 08:14] LABS: Glucose Point of Care 162 mg/dl (65-105)
[2024-01-05] MEDS: PANTOPRAZOLE SODIUM IV 40 MG VIAL IV PUSH (08:22)
--- NOTE | 2024-01-05 08:56 | PCOTNOTE ---
Attempted to see pt for Occupational Therapy treatment. Pt is declining to participate in therapy services today stating I've been popping all night...I've been up all night..I'm not doing that today. Pt also declined to have therapist attempt at a later time today. RN is aware of pt's refusal. Will continue per poc duration/frequency tomorrow.
--- NOTE | 2024-01-05 09:02 | WPDGIPROGNO ---
Progress Note: A&P Assessment and Plan (1) Abnormality of rectum: Code(s): K62.9 - Disease of anus and rectum, unspecified Status: Acute Assessment and Plan: never had colonoscopy will start bowel prep today and scopes tomorrow (2) Intractable nausea and vomiting: Code(s): R11.2 - Nausea with vomiting, unspecified Status: Acute Assessment and Plan: no more nausea and tolerating diet some gerd symptom and never had egd egd in am (3) Sepsis: Code(s): A41.9 - Sepsis, unspecified organism Status: Acute Assessment and Plan: probably from uti, resolved (4) Paraplegia: Code(s): G82.20 - Paraplegia, unspecified Status: Chronic (5) Neurogenic bladder: Code(s): N31.9 - Neuromuscular dysfunction of bladder, unspecified Status: Acute (6) UTI (urinary tract infection): Code(s): N39.0 - Urinary tract infection, site not specified Status: Acute Subjective Date/time seen: 01/05/24 09:02 Interval history: she is anxious about scopes tomorrow Review of Systems Review of Systems: All systems reviewed & are unremarkable except as noted in HPI and below Exam Narrative: General: In no acute distress, well nourished Head: atraumatic, no encephalopathy Eyes: EOMI, PERRLA, sclera clear ENT: moist mucous membranes Neck: supple. Cardiac: Normal S1 and S2. RRR Respiratory: Lungs clear to auscultation Gastrointestinal: soft, non-distended, non-tender, normal bowel sounds. : Marcos catheter in place Extremities: paraplegic at baseline Skin: decubitus ulcer coccyx Neuro: Alert and oriented x4, paraplegia. Psych: good spirits Objective Data Vital Signs Vital Signs: Vital Signs - 24 hr 01/04/24 14:00 01/04/24 20:18 01/04/24 20:37 Temperature 98.4 F 98.2 F Pulse Rate 89 100 100 Respiratory Rate 16 16 Blood Pressure 158/60 H 140/57 L Pulse Oximetry 98 100 Oxygen Delivery Fraction of Inspired Oxygen 01/04/24 20:00 01/05/24 07:30 Temperature 97.7 F Pulse Rate 100 96 Respiratory Rate 16 16 Blood Pressure 124/60 Pulse Oximetry 100 Oxygen Delivery Room Air Fraction of Inspired Oxygen 21 Intake/Output Intake/Output: Intake & Output 01/02/24 01/03/24 01/04/24 01/05/24 23:59 23:59 23:59 23:59 Intake Total 3465 3035 3620 1528.3 Output Total 2900 1700 2200 2475 Balance 565 1335 1420 -946.7 Meds/Results Medications: Active Medications Generic Name Dose Route Start Last Admin Trade Name Freq PRN Reason Stop Dose Admin Acetaminophen 650 mg 01/02/24 00:46 Acetaminophen 325 Mg Tablet PO Q4H PRN Mild Pain (1-3) or Fever Hydrocodone Bitart/Acetaminophen 1 tab 01/02/24 04:42 01/04/24 08:05 Hydrocodone/Acetaminophen (*Crx) 10-325 Mg Tablet PO 1 tab Q4H PRN Administration Pain 4-6 Artificial Tears 1 drop 01/05/24 07:42 Artificial Tears Ophth Soln 15 Ml Bottle EACH EYE QID PRN Dry Eye(s) Atorvastatin Calcium 20 mg 01/02/24 21:00 01/04/24 20:37 Atorvastatin 20 Mg Tablet PO 20 mg HS SUSANNE Administration Bisacodyl 20 mg 01/05/24 17:00 Bisacodyl 5 Mg Tablet Ec PO 01/05/24 17:01 ONCE ONE Dextrose 12.5 gm 01/02/24 05:12 Dextrose 50% 25 Gm/50 Ml Syringe IV PUSH PRN PRN Hypoglycemia Protocol Gabapentin 600 mg 01/02/24 09:00 01/04/24 17:14 Gabapentin 300 Mg Capsule PO 600 mg TID SUSANNE Administration Glucagon 1 mg 01/02/24 05:12 Glucagon For Inj 1 Mg Vial IM PRN PRN Hypoglycemia Protocol Glucose 15 gm 01/02/24 05:12 Glucose Oral Gel 15 Gm Of Glucse In 37.5 Gm Tube PO PRN PRN Hypoglycemia Protocol Hydromorphone HCl 1 mg 01/02/24 02:01 01/05/24 08:20 Hydromorphone Hcl Inj (*Crx) 1 Mg/Ml Syr IV PUSH 1 mg Q3H PRN Administration Pain Rated 7-10 Sodium Chloride 1,000 mls @ 100 mls/hr 01/02/24 00:50 01/05/24 04:33 Normal Saline Iv IV CONT 100
[2024-01-05] MEDS: IRON SUCROSE COMPLEX 400 MG, IRON SUCROSE COMPLEX 100 MG in SODIUM CHLORIDE 0.9% IV 250 ML 78.57 MG IVPB (09:10)
[2024-01-05 09:14] VITALS: PULSE 96
[2024-01-05] MEDS: GABAPENTIN 300 MG CAPSULE 600 MG PO ×3 (09:14→17:16)
[2024-01-05] MEDS: NITROFURANTOIN MONOHYD MACROCR 100 MG CAP PO ×2 (09:14→21:05)
[2024-01-05] MEDS: PROPRANOLOL HCL 10 MG TABLET PO ×2 (09:14→21:06)
--- NOTE | 2024-01-05 10:31 | PM.IMPN ---
Progress Note: A&P Assessment and Plan (1) Abnormality of rectum: Code(s): K62.9 - Disease of anus and rectum, unspecified Status: Acute Assessment and Plan: Pt with significant nausea and vomiting on admission -resolved -CT Stable probable circumferential wall thickening focally the distal rectum with infiltration of presacral fat. Underlying colonic malignancy not excluded. -GI following - Plan for colonoscopy on Saturday (2) UTI (urinary tract infection): Code(s): N39.0 - Urinary tract infection, site not specified Status: Acute Assessment and Plan: Initial UA positive for enterococcus but recent one is negative -continue Macrobid -has neurogenic bladder and chronic foleywhich has been changed on admission -bladder scan as needed, consider changing ledbetter as patient is experiencing discomfort and may be retaining -blood cultures NGTD (3) Pressure ulcer of sacral region: Qualifiers: Pressure injury stage: unspecified pressure injury stage Qualified Code(s): L89.159 - Pressure ulcer of sacral region, unspecified stage Code(s): L89.159 - Pressure ulcer of sacral region, unspecified stage Status: Chronic Assessment and Plan: Noted initially October, recent CT with probable focal osteomyelitis of S6 and she also has necrotic tissues on bilateral toes -Sees Dr. 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 see above US bx of thyroid complete, pathology pending Pt also has decubitus ulcer with probable osteo (6) Paraplegia: Code(s): G82.20 - Paraplegia, unspecified Status: Chronic Assessment and Plan: Pt has a hx of spinal stroke which caused paraplegia (7) Type 1 diabetes mellitus: Code(s): E10.9 - Type 1 diabetes mellitus without complications Status: Chronic Assessment and Plan: Last glucose 130--good control -previously on lantus 36u with 10u novolog TIDWM -Lantus adjusted to 18 units overnight -changed to low dose sliding scale while patient is on clear liquids -continue AccuCheck and hypoglycemic protocol. (8) Anemia: Code(s): D64.9 - Anemia, unspecified Status: Chronic Assessment and Plan: Noted started earlier this year -no signs of current blood loss - iron studies: iron 11, TIBC 232, % sat 5, transferrin 143, ferritin 119 -IV Venofer 500 mg ordered today Subjective Date/time seen: 01/05/24 10:31 Interval history: Patient is lying in bed this morning in no acute distress. Her only complaints are that she feels tired and that she cannot eat until after her colonoscopy scheduled for tomorrow afternoon. She is reporting some burning around her catheter, which she does not usually feel. Her bladder feels full and we will bladder scan and consider replacing catheter as it was recently changed on admission and this is when her concerns started. May consider yeast infection if symptoms do not resolve and burning continues as she is on AB for UTI. Insulin has been adjusted while on clears, will continue to monitor. IV Venofer ordered for today and she is quite iron deficient with anemia. Review of Systems Review of Systems: All systems reviewed & are unremarkable except as noted in HP
[2024-01-05 12:08] LABS: Glucose Point of Care 140 mg/dl (65-105)
[2024-01-05] MEDS: HYDROcodone/acetaminophen (*CRX) 10-325 MG TABLET 1 TAB PO ×2 (13:11→17:35)
[2024-01-05 14:00] VITALS: BP 157/68; PULSE 85; RESP 16; TEMP 36.4; O2SAT 100
--- NOTE | 2024-01-05 14:01 | PM.CNGS ---
Assessment and Plan Assessment and plan (1) Pressure ulcer of sacral region: Qualifiers: Pressure injury stage: unspecified pressure injury stage Qualified Code(s): L89.159 - Pressure ulcer of sacral region, unspecified stage Code(s): L89.159 - Pressure ulcer of sacral region, unspecified stage Status: Chronic Assessment and Plan: By discussion with patient and her , as well as measurements from previous visits, this sacral deep cubitus is clearly healing. Today the wound looks very clean without any evidence of an infection such as osteomyelitis. No doubt there are probably some bony changes on imaging but clinically this does not seem to be significant by my evaluation. Continue silver rope dressing changes. I will ask the wound nurses to see the patient tomorrow and also confer with Dr. Roman. (2) Spinal cord stroke: Code(s): G95.11 - Acute infarction of spinal cord (embolic) (nonembolic) Status: Chronic Assessment and Plan: May 2023 (3) Paraplegia: Code(s): G82.20 - Paraplegia, unspecified Status: Chronic (4) UTI (urinary tract infection): Code(s): N39.0 - Urinary tract infection, site not specified Status: Acute Assessment and Plan: Enterococcus per culture. Patient not currently on any antibiotics. (5) Type 1 diabetes mellitus: Code(s): E10.9 - Type 1 diabetes mellitus without complications Status: Chronic (6) History of smoking: Code(s): Z87.891 - Personal history of nicotine dependence Status: Chronic (7) Abnormality of rectum: Code(s): K62.9 - Disease of anus and rectum, unspecified Status: Acute Assessment and Plan: Patient to have EGD and colonoscopy for this problem and #8, below, by Dr. Saleh on Saturday. (8) Intractable nausea and vomiting: Code(s): R11.2 - Nausea with vomiting, unspecified Status: Acute History of Present Illness Consult details Consult date: 01/05/24 Reason for consult: other (Osteomyelitis sacral decubitus wound) Requesting physician: Anila Lin PA-C Narrative: Patient is a 43-year-old woman with paraplegia as a consequence of spinal cord stroke following aorto iliac bypass performed May of 2023. This surgery was done in [place] and apparently patient had a large sacral decubitus develop during her recovery. She has been followed by my partner, Dr. Roman, who took her to surgery on 11/18/2023 and placed a Marigen Xenograft and wound VAC. She has been followed with wound VAC therapy by Dr. Roman as well as the Wound specialty nurses at [place] [facility]. The wound has been decreasing in size significantly. She was last seen by Dr. Roman on December 23, 12 days ago. The wound VAC had been causing her to have burning pain and had been discontinued. Currently she is having Silver rope packing to the wound daily with ABD dressing. Patient has also had numerous problems with urinary retention and urinary tract infections. On this admission, she came to our emergency room with complaints of fatigue and having had urinary tract infection treated at another facility prior to that. The ER physician had a culture result that showed Enterococcus. On 01/02/2020 for she had a CT scan of the abdomen and pelvis for flank pain. This showed some nonobstructing renal stones and stones in the urinary bladder. There was some circumferential thickening of the rectum for unknown reasons. It also was read as sacral decubitus ulcer with probable focal osteomyelitis of S6. I was asked to see the patient in consultation regarding this reading of osteomyelitis. CT scan of 12/13/2023 also was for abdominal complaints and suggested early osteomyelitis of S6. The wound at that time was 3.5 x 2 cm. No areas of debridement were noted and no signs of infection were appreciated. Patient is seen now in consultation. Patient had intractable nausea and vomiting
[2024-01-05] MEDS: BISACODYL 5 MG TABLET EC 20 MG PO (17:17)
[2024-01-05] MEDS: polyethylene glycoL 3350 238 GM BOTTLE PO (17:24)
[2024-01-05 17:31] LABS: Glucose Point of Care 163 mg/dl (65-105)
[2024-01-05] MEDS: ARTIFICIAL TEARS OPHTH SOLN 15 ML BOTTLE 1 DROP EACH EYE (18:33)
[2024-01-05 20:00] VITALS: PULSE 100; RESP 16; O2SAT 100
[2024-01-05] MEDS: ATORVASTATIN 20 MG TABLET PO (21:05)
[2024-01-05] MEDS: INSULIN GLARGINE (*BKC) 100 UNITS/ML 18 UNITS SUB-Q (21:05)
[2024-01-05] MEDS: traZODone HCL 50 MG TABLET 100 MG PO (21:05)
[2024-01-05 21:06] VITALS: PULSE 100
[2024-01-05 21:09] LABS: Glucose Point of Care 174 mg/dl (65-105)
[2024-01-05 22:00] VITALS: BP 146/57; PULSE 100; RESP 17; TEMP 36.8; O2SAT 100
[2024-01-06] VITALS (11 sets, daily range): BP systolic 101–169; BP diastolic 49–73; PULSE 77–108; RESP 16–18; TEMP 36–37; O2SAT 96–100
[2024-01-06] MEDS: METOCLOPRAMIDE HCL INJ 10 MG/2 ML VIAL 5 MG IV PUSH ×2 (00:06→06:21)
[2024-01-06] MEDS: HYDROcodone/acetaminophen (*CRX) 10-325 MG TABLET 1 TAB PO ×2 (00:06→06:39)
[2024-01-06] MEDS: HYDROmorphone HCL INJ (*CRX) 1 MG/ML SYR IV PUSH ×6 (01:35→20:52)
[2024-01-06] MEDS: MAGNESIUM CITRATE 300 ML BTL PO ×2 (01:35→06:20)
[2024-01-06 06:17] LABS: Basophils Percent Auto 0.3 % (0.2-1.2); Eosinophils Absolute Auto 0.2 K/mm3 (0-0.3); Eosinophils Percent Auto 2.7 % (0-4.4); Hematocrit 26.8 % (37.0-47.0); Hemoglobin 8.7 g/dL (12.0-15.0); Immature Granulocyte Absolute 0.02 K/mm3 (0.00-0.031); Immature Granulocyte Percent A 0.3 % (0-0.5); Lymphocytes Absolute Auto 1.35 K/mm3 (0.9-3.2); Lymphocytes Percent Auto 22.9 % (18.3-44.2); Mean Corpuscular HGB Conc 32.5 g/dl (32-36); Mean Corpuscular Hemoglobin 29.8 pg (26-34); Mean Corpuscular Volume 91.8 fl (80-100); Mean Platelet Volume 10.2 fl (7.4-10.4); Monocytes Absolute Auto 0.5 K/mm3 (0.1-0.6); Monocytes Percent Auto 8.7 % (2.6-8.5); Neutrophils Absolute Auto 3.8 K/mm3 (1.3-6.7); Neutrophils Percent Auto 65.1 % (45.5-73.1); Platelet Count Result 143 k/mm3 (150-375); Red Blood Count 2.92 M/mm3 (4.2-5.4); White Blood Count 5.9 K/mm3 (4.5-10.0)
[2024-01-06 06:37] LABS: Alanine Aminotransferase 22 U/L (6-35); Alkaline Phosphatase 105 U/L (38-126); Anion Gap 5 mmol/L (4-12); Aspartate Amino Transferase 25 U/L (14-36); Bilirubin,Total 0.2 mg/dL (0.2-1.3); Blood Urea Nitrogen 13 mg/dL (7-17); Carbon Dioxide 25 mmol/L (22-30); Chloride 109 mmol/L (98-107); Estimated CRCL calculation 99 ml/min; Estimated Glomerular Filt Rate > 60; Glucose 90 mg/dL (65-110); Sodium 139 mmol/L (137-145)
[2024-01-06] MEDS: SODIUM CHLORIDE 0.9% IV 1,000 ML 100 ML IV CONT ×2 (07:23→22:15)
--- NOTE | 2024-01-06 07:46 | P.PNIM_ITS ---
Progress Note: A&P Assessment and Plan (1) UTI (urinary tract infection): Code(s): N39.0 - Urinary tract infection, site not specified Status: Acute Assessment and Plan: 01/02/24: * Patient came in with weakness and UTI which was being treated on an outpatient basis with Bactrim however she was not getting much relief and had worsening symptoms and they switched her over to Macrobid. She continued to be symp tomatic and came in for further evaluation * Urine culture from 12/30 showed Enterococcus species on final read. Patient was put on meropenem overnight and we will switch that to vancomycin today considering susceptibilities and penicillin allergy. 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 This was noted on previous scans as well. * GI consulted for additional workup 01/03/24: * GI recommending colonoscopy once Nausea and vomiting resolves. May need EGD as well. GI will continue to follow. * US of the thyroid revealed nodules at the inferior aspect of both the right and left thyroid lobes * Will get US guided biopsy of thyroid nodule * Patient has decubitus ulcer with osteomyelitis changes which could also explain bump in calcium level versus her immobility due to paraplegia * Vitamin D level is pending 01/06/24: * Colonoscopy and EGD today with GI * Vitamin D level still pending (4) Paraplegia: Code(s): G82.20 - Paraplegia, unspecified Status: Chronic Assessment and Plan: 01/02/24: * Of note, patient suffered a spinal cord stroke 01/03/24: * PT and OT ordered. Patient has been undergoing therapy since spinal cord stroke as she was told that she could regain back her mobility. 01/06/24: * No change to current treatment plan (5) Pressure ulcer of sacral region: Qualifiers: Pressure injury stage: unspecified pressure injury stage Qualified Code(s): L89.159 - Pressure ulcer of sacral region, unspecified stage Code(s): L89.159 - Pressure ulcer of sacral region, unspecified stage Status: Chronic Assessment and Plan: 01/02/24: * Abdomen pelvis CT shown sacral decubitus ulcer with probable focal osteomyelitis of S6 which is unchanged from previous imaging 01/03/24: * Dressing changes daily 01/06/24: * General surgery was consulted and does not feel the wound is infected. * Continue with silver rope dressing changes daily * Wound nurse consulted (6) Type 1 diabetes mellitus: Code(s): E10.9 - Type 1 diabetes mellitus without complicat
--- NOTE | 2024-01-06 07:46 | PM.IMPN ---
Progress Note: A&P Assessment and Plan (1) UTI (urinary tract infection): Code(s): N39.0 - Urinary tract infection, site not specified Status: Acute Assessment and Plan: 01/02/24: Patient came in with weakness and UTI which was being treated on an outpatient basis with Bactrim however she was not getting much relief and had worsening symptoms and they switched her over to Macrobid. She continued to be symptomatic and came in for further evaluation Urine culture from 12/30 showed Enterococcus species on final read. Patient was put on meropenem overnight and we will switch that to vancomycin today considering susceptibilities and penicillin allergy. 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 This was noted on previous scans as well. GI consulted for additional workup 01/03/24: GI recommending colonoscopy once Nausea and vomiting resolves. May need EGD as well. GI will continue to follow. US of the thyroid revealed nodules at the inferior aspect of both the right and left thyroid lobes Will get US guided biopsy of thyroid nodule Patient has decubitus ulcer with osteomyelitis changes which could also explain bump in calcium level versus her immobility due to paraplegia Vitamin D level is pending 01/06/24: Colonoscopy and EGD today with GI Vitamin D level still pending (4) Paraplegia: Code(s): G82.20 - Paraplegia, unspecified Status: Chronic Assessment and Plan: 01/02/24: Of note, patient suffered a spinal cord stroke 01/03/24: PT and OT ordered. Patient has been undergoing therapy since spinal cord stroke as she was told that she could regain back her mobility. 01/06/24: No change to current treatment plan (5) Pressure ulcer of sacral region: Qualifiers: Pressure injury stage: unspecified pressure injury stage Qualified Code(s): L89.159 - Pressure ulcer of sacral region, unspecified stage Code(s): L89.159 - Pressure ulcer of sacral region, unspecified stage Status: Chronic Assessment and Plan: 01/02/24: Abdomen pelvis CT shown sacral decubitus ulcer with probable focal osteomyelitis of S6 which is unchanged from previous imaging 01/03/24: Dressing changes daily 01/06/24: General surgery was consulted and does not feel the wound is infected. Continue with silver rope dressing changes daily Wound nurse consulted (6) Type 1 diabetes mellitus: Code(s): E10.9 - Type 1 diabetes mellitus without complications Status: Chronic Assessment and Plan: 01/02/24: Blood glucose ranging 138-143 Last hemoglobin A1c on 11/11/2023 was 5.7 Lantus 36 units ordered for at bedtime Mealtime replacement insulin ordered 10 units with meals Accu-Cheks AC and HS Hypoglycemic protocol in place Will change patient over to a diabetic diet 01/03/24: No change to current treatment plan Time Spent With Patient Time with patient: 25 -
[2024-01-06] MEDS: PROPRANOLOL HCL 10 MG TABLET PO ×2 (08:22→20:53)
[2024-01-06 08:35] LABS: Glucose Point of Care 123 mg/dl (65-105)
--- NOTE | 2024-01-06 08:58 | PCOTNOTE ---
Patient refused treatment this session due to completing a bowel prep on this date. Will follow up tomorrow.
--- NOTE | 2024-01-06 11:17 | PCPTNOTE ---
Attempted to see patient for PT, however patient refused. Patient reported she is having to bowel prep for testing today and did not want to do any therapy for today.
[2024-01-06 12:10] LABS: Glucose Point of Care 87 mg/dl (65-105)
--- NOTE | 2024-01-06 13:25 | PC.NURSE ---
To GI Lab via [employer].
[2024-01-06 13:41] LABS: Glucose Point of Care 85 mg/dl (65-105)
[2024-01-06] MEDS: LACTATED RINGERS 1,000 ML 150 ML IV CONT (13:45)
--- NOTE | 2024-01-06 13:55 | WPDANESEPPF ---
Anes - Initial Pre Proc Eval Procedure: Operation Date: 01/06/24 17:00 Proposed Procedures p Esophagogastroduodenoscopy & Colonoscopy - Kun Montes De Oca MD Date/Time: 01/06/24 13:55 Surgeon: Tanvi Bradshaw APRN Pre Op Diagnosis: UTI, Hypercalcemia, Dehydration Patient Data Age: 43 Gender: F Height: 1.88 m Weight: 87.2 kg Last Vital Signs Temp 97.1 F L 01/06/24 13:41 Pulse 87 01/06/24 13:41 Resp 18 01/06/24 13:41 BP 134/49 L 01/06/24 13:41 Pulse Ox 96 01/06/24 13:41 O2 Del Method Room Air 01/06/24 08:22 FiO2 21 01/06/24 08:22 Allergies Allergy/AdvReac Type Severity Reaction Status Date / Time azithromycin Allergy Unknown Hives Verified 01/06/24 13:35 amoxicillin AdvReac Unknown Verified 01/06/24 13:35 Home Medications Medication Instructions Recorded Confirmed Type atorvastatin 20 mg tablet 20 mg PO HS 11/10/23 01/02/24 History gabapentin 600 mg tablet 600 mg PO TID 11/10/23 01/02/24 History hydrocodone 10 mg-acetaminophen 1 tablet PO Q4H PRN Pain 11/10/23 01/02/24 History 325 mg tablet trazodone 100 mg tablet 100 mg PO HS 11/10/23 01/02/24 History insulin glargine 100 unit/mL (3 36 unit (0.36 mL) subcut HS #3 mL 11/21/23 01/02/24 Rx mL) subcutaneous pen (Lantus Solostar U-100 Insulin) insulin lispro 100 unit/mL 10 unit (0.1 mL) subcut AC #15 mL 11/21/23 01/02/24 Rx subcutaneous pen (Humalog KwikPen (U-100) Insulin) ondansetron 4 mg disintegrating 4 mg PO Q8H PRN nausea and 12/13/23 01/02/24 Rx tablet vomiting #14 tabs metoclopramide HCl 10 mg tablet 10 mg PO BID #60 tabs 12/31/23 01/02/24 Rx nitrofurantoin 100 mg PO Q12H 5 days #10 caps 12/31/23 01/02/24 Rx monohydrate/macrocrystals 100 mg capsule (Macrobid) propranolol 20 mg tablet 10 mg PO Q12H 01/02/24 01/06/24 History Laboratory Tests 01/02/24 01/05/24 01/05/24 01:03 17:25 20:56 WBC RBC Hgb Hct MCV MCH MCHC RDW Plt Count MPV Immature Gran % (Auto) Neut % (Auto) Lymph % (Auto) [place] % (Auto) Eos % (Auto) Baso % (Auto) Lymph # (Auto) [place] # (Auto) Eos # (Auto) Baso # (Auto) Abs Immat Gran (auto) Absolute Neuts (auto) Absolute Nucleated RBC Nucleated RBC % Sodium Potassium Chloride Carbon Dioxide Anion Gap BUN Creatinine Estim Creat Clear Calc Estimated GFR Glucose POC Capillary Glucose 163 H mg/dl 174 H mg/dl (65-105) (65-105) Calcium Total Bilirubin AST ALT Alkaline Phosphatase Total Protein Albumin Urine Total Volume Not Reportable 01/06/24 01/06/24 01/06/24 05:59 08:09 12:06 WBC 5.9 K/mm3 (4.5-10.0) RBC 2.92 L M/mm3 (4.2-5.4) Hgb 8.7 L g/dL (12.0-15.0) Hct 26.8 L % (37.0-47.0) MCV 91.8 fl (80-100) MCH 29.8 pg (26-34) MCHC 32.5 g/dl (32-36) RDW 14.0 % (11.5-14.5) Plt Count 143 L k/mm3 (150-375) MPV 10.2 fl (7.4-10.4) Immature Gran % (Auto) 0.3 % (0-0.5) Neut % (Auto) 65.1 % (45.5-73.1) Lymph % (Auto) 22.9 % (18.3-44.2) [place] % (Auto) 8.7 H % (2.6-8.5) Eos % (Auto) 2.7 % (0-4.4) Baso % (Auto) 0.3 % (0.2-1.2) Lymph # (Auto) 1.35 K/mm3 (0.9-3.2) [place] # (Auto) 0.5 K/mm3 (0.1-0.6) Eos # (Auto) 0.2 K/mm3 (0-0.3) Baso # (Auto) 0.0 K/mm3 (0.0-0.1) Abs Immat Gran (auto) 0.02 K/mm3 (0.00-0.031) Absolut
[2024-01-06] MEDS: BENZOCAINE (*SP) 60 ML SPRAY CAN (HURRICAINE) 1 SPRAY MUCOUS MEM (14:15)
--- NOTE | 2024-01-06 14:29 | SUR.OPER ---
egd end 1425 colonoscopy start 1423
[2024-01-06 15:19] LABS: Glucose Point of Care 67 mg/dl (65-105)
[2024-01-06] MEDS: DEXTROSE 50% 25 GM/50 ML SYRINGE IV PUSH (15:20)
[2024-01-06 15:44] LABS: Glucose Point of Care 96 mg/dl (65-105)
--- NOTE | 2024-01-06 15:50 | PC.NURSE ---
Returned from GI Lab via stretcher.
[2024-01-06] MEDS: GABAPENTIN 300 MG CAPSULE 600 MG PO (16:49)
[2024-01-06 16:56] LABS: Glucose Point of Care 114 mg/dl (65-105)
--- NOTE | 2024-01-06 17:33 | PM.PNGS ---
Progress Note: A&P Assessment and Plan (1) Stage IV pressure ulcer of sacral region: Code(s): L89.154 - Pressure ulcer of sacral region, stage 4 Status: Chronic Assessment and Plan: Discussed with wound care nurses who saw the patient's wound today. Also discussed with Dr. Roman. No acute changes to the chronic sacral wound. Continue silver rope dressing changes daily. She will follow-up with Dr. Roman in the wound clinic in 2-3 weeks. We will sign off and she can continue outpatient care. (2) Paraplegia: Code(s): G82.20 - Paraplegia, unspecified Status: Chronic Subjective Subjective Date/Time Seen: 01/06/24 17:33 Patient reports: no new complaints and afebrile Review of Systems Review of Systems: All systems reviewed & are unremarkable except as noted in HPI and below (HPI) Exam Const: General: comfortable, alert and awake Objective Data Vital Signs Vital Signs: Vital Signs - 24 hr 01/05/24 21:06 01/05/24 20:00 01/05/24 22:00 Temperature 36.8 C Pulse Rate 100 100 100 Respiratory Rate 16 17 Blood Pressure 146/57 H Pulse Oximetry 100 100 Oxygen Delivery Room Air Fraction of Inspired Oxygen 01/06/24 06:00 01/06/24 08:22 01/06/24 08:22 Temperature 37.0 C Pulse Rate 95 88 Respiratory Rate 16 16 Blood Pressure 140/67 Pulse Oximetry 97 97 Oxygen Delivery Room Air Fraction of Inspired Oxygen 01/06/24 13:41 01/06/24 14:50 01/06/24 15:00 Temperature 36.2 C L Pulse Rate 87 77 84 Respiratory Rate 18 16 18 Blood Pressure 134/49 L 101/60 126/73 Pulse Oximetry 96 100 100 Oxygen Delivery Fraction of Inspired Oxygen 01/06/24 15:10 01/06/24 16:10 01/06/24 16:00 Temperature 36.0 C L Pulse Rate 85 94 Respiratory Rate 18 16 16 Blood Pressure 149/71 H 169/67 H Pulse Oximetry 100 100 100 Oxygen Delivery Room Air Fraction of Inspired Oxygen Intake/Output Intake/Output: Intake & Output 01/03/24 01/04/24 01/05/24 01/06/24 23:59 23:59 23:59 23:59 Intake Total 3035 3620 3968.3 2283.3 Output Total 1700 2200 3100 1000 Balance 1335 1420 868.3 1283.3 Meds/Results Medications: Active Medications Generic Name Dose Route Start Last Admin Trade Name Freq PRN Reason Stop Dose Admin Acetaminophen 650 mg 01/02/24 00:46 Acetaminophen 325 Mg Tablet PO Q4H PRN Mild Pain (1-3) or Fever Hydrocodone Bitart/Acetaminophen 1 tab 01/02/24 04:42 01/06/24 06:39 Hydrocodone/Acetaminophen (*Crx) 10-325 Mg Tablet PO 1 tab Q4H PRN Administration Pain 4-6 Artificial Tears 1 drop 01/05/24 07:42 01/05/24 18:33 Artificial Tears Ophth Soln 15 Ml Bottle EACH EYE 1 drop QID PRN Administration Dry Eye(s) Atorvastatin Calcium 20 mg 01/02/24 21:00 01/05/24 21:05 Atorvastatin 20 Mg Tablet PO 20 mg HS SUSANNE Administration Dextrose 12.5 gm 01/02/24 05:12 01/06/24 15:20 Dextrose 50% 25 Gm/50 Ml Syringe IV PUSH 12.5 gm PRN PRN Administration Hypoglycemia Protocol Fluconazole 150 mg 01/05/24 10:44 Fluconazole 150 Mg Tablet PO ONCE PRN yeast Gabapentin 600 mg 01/02/24 09:00 01/06/24 16:49 Gabapentin 300 Mg Capsule PO 600 mg TID SUSANNE Administration Glucagon 1 mg 01/02/24 05:12 Glucagon For Inj 1 Mg Vial IM PRN PRN Hypoglycemia Protocol Glucose 15 gm 01/02/24 05:12 Glucose Oral Gel 15 Gm Of Glucse In 37.5 Gm Tube PO PRN PRN Hypoglycemia Protocol Hydromorphone HCl 1 mg 01/02/24 02:01 01/06/24 16:49 Hydromorphone Hcl Inj (*Crx) 1 Mg/Ml Syr IV PUSH 1 mg Q3H PRN Administration Pain Rated 7-10 Sodium Chloride 1,000 mls @ 100 mls/hr 01/02/24 00:50 01/06/24 16:00 Normal Saline Iv IV CONT 100 mls/hr .Q10H SUSANNE Infusion Dextrose 1,000 mls @ 100 mls/hr 01/02/24 05:12 Dextrose 5% 1,000 Ml IVPB PRN PRN Hypoglycemia Protocol Insulin Aspart 10 units 01/02/24 12:00
[2024-01-06] MEDS: INSULIN GLARGINE (*BKC) 100 UNITS/ML 18 UNITS SUB-Q (20:53)
[2024-01-06] MEDS: NITROFURANTOIN MONOHYD MACROCR 100 MG CAP PO (20:53)
[2024-01-06] MEDS: ATORVASTATIN 20 MG TABLET PO (20:54)
[2024-01-06] MEDS: traZODone HCL 50 MG TABLET 100 MG PO (20:54)
[2024-01-06 21:53] LABS: Glucose Point of Care 159 mg/dl (65-105)
[2024-01-07] MEDS: HYDROmorphone HCL INJ (*CRX) 1 MG/ML SYR IV PUSH ×6 (00:07→16:30)
[2024-01-07 04:45] VITALS: BP 120/65; PULSE 83; RESP 18; TEMP 36.6; O2SAT 97
[2024-01-07 05:38] LABS: Basophils Percent Auto 0.6 % (0.2-1.2); Eosinophils Absolute Auto 0.2 K/mm3 (0-0.3); Eosinophils Percent Auto 3.6 % (0-4.4); Hematocrit 24.8 % (37.0-47.0); Immature Granulocyte Absolute 0.02 K/mm3 (0.00-0.031); Immature Granulocyte Percent A 0.4 % (0-0.5); Lymphocytes Absolute Auto 2.12 K/mm3 (0.9-3.2); Lymphocytes Percent Auto 40.1 % (18.3-44.2); Mean Corpuscular HGB Conc 32.3 g/dl (32-36); Mean Corpuscular Hemoglobin 29.3 pg (26-34); Mean Corpuscular Volume 90.8 fl (80-100); Mean Platelet Volume 9.9 fl (7.4-10.4); Monocytes Absolute Auto 0.4 K/mm3 (0.1-0.6); Monocytes Percent Auto 7.2 % (2.6-8.5); Neutrophils Absolute Auto 2.6 K/mm3 (1.3-6.7); Neutrophils Percent Auto 48.1 % (45.5-73.1); Platelet Count Result 157 k/mm3 (150-375); Red Blood Count 2.73 M/mm3 (4.2-5.4); Red Cell Distribution Width 13.9 % (11.5-14.5); White Blood Count 5.3 K/mm3 (4.5-10.0)
[2024-01-07 05:47] LABS: Alanine Aminotransferase 18 U/L (6-35); Albumin Level 2.6 g/dL (3.5-5.1); Anion Gap 6 mmol/L (4-12); Aspartate Amino Transferase 18 U/L (14-36); Bilirubin,Total 0.2 mg/dL (0.2-1.3); Blood Urea Nitrogen 15 mg/dL (7-17); Calcium 8.1 mg/dL (8.4-10.2); Carbon Dioxide 24 mmol/L (22-30); Chloride 109 mmol/L (98-107); Estimated CRCL calculation 99 ml/min; Estimated Glomerular Filt Rate > 60; Glucose 130 mg/dL (65-110); Potassium 3.4 mmol/L (3.4-5.0); Sodium 139 mmol/L (137-145)
[2024-01-07 05:48] LABS: Alkaline Phosphatase 94 U/L (38-126)
[2024-01-07 08:40] LABS: Glucose Point of Care 104 mg/dl (65-105)
[2024-01-07 09:24] VITALS: PULSE 90
[2024-01-07] MEDS: PROPRANOLOL HCL 10 MG TABLET PO (09:24)
[2024-01-07] MEDS: NITROFURANTOIN MONOHYD MACROCR 100 MG CAP PO (09:24)
[2024-01-07] MEDS: PANTOPRAZOLE SODIUM IV 40 MG VIAL IV PUSH (09:26)
[2024-01-07] MEDS: GABAPENTIN 300 MG CAPSULE 600 MG PO ×2 (09:26→13:07)
[2024-01-07] MEDS: SODIUM CHLORIDE 0.9% IV 1,000 ML 100 ML IV CONT (09:27)
[2024-01-07] MEDS: HYDROcodone/acetaminophen (*CRX) 10-325 MG TABLET 1 TAB PO (11:34)
--- NOTE | 2024-01-07 11:37 | PCNFU ---
Nutrition Follow-Up Complete: Moderate protein calorie malnutrition related to inadequate energy intake and increased nutrient needs as evidenced by a significant weight loss of -13% x 4 months, poor po intake, altered skin integrity, and NFPE findings for moderate subcutaneous fat loss (cheeks) and moderate muscle wasting (jewish, clavicle). Goal: PO intake 75% of meals and supplements Patient is meeting current goal. No new goal. Pt current nutrition is [facility] diet with Glucerna shakes BID and Wilmer BID. Last recorded weight is 86 kg, down from 87.6 kg on admit. Bowel Motility: +BM reported 01/06 Labs Reviewed:Glu 130, Alb 2.6,Hct 24.8,Hgb 8.0 Meds Noted:NovoLog,Lantus, Reglan, Protonix. Skin: Sacral wound stage IV. Additional Notes: Patient remains on a [facility] dit and tolerating diet. Supplements of Glucerna shakes providing an additional 220 kcal and 10 gm protein. Wilmer BID adding an additional 90 kcals. Agree with diet orders. Monitor intake, wt, labs, skin. Follow up in 7 days.
--- NOTE | 2024-01-07 12:10 | PCOTNOTE ---
Attempted to see Patient for OT treatment session. Patient refused any and all services at this time. Patient very outspoken and aggravated at this time. RN notified and aware.
[2024-01-07 12:43] LABS: Glucose Point of Care 110 mg/dl (65-105)
--- NOTE | 2024-01-07 12:52 | PM.DS ---
DS: Admitting Diagnosis Discharge Date 01/07/24 Admitting Diagnosis Sepsis Hypercalcemia Paraplegia Neurogenic bladder Diabetic peripheral neuropathy Type 1 diabetes mellitus Spinal cord stroke DS: Summary Hospital Course Reason for hospitalization: Sepsis Hypercalcemia Paraplegia Neurogenic bladder Diabetic peripheral neuropathy Type 1 diabetes mellitus Spinal cord stroke Hospital Course: This is a 43-year-old female who presented to the hospital on 01/01/2024 with weakness and UTI. Patient was recently seen and treated for this urinary tract infection and initially placed on Bactrim however she had worsening symptoms and was changed over to Macrobid. She is not having any relief with either antibiotic and presents for further workup. Workup in the hospital included a chest x-ray which was negative. Abdomen pelvis CT which shown small nonobstructing renal stones and small area urinary bladder stones, no hydronephrosis or ureteral stone seen, stable probable wall thickening at the distal rectum with infiltration of pre sacral fat, sacral decubitus ulcer with probable focal osteomyelitis of S6 which is unchanged from previous imaging. Initial labs shown a normal white blood count of 8.8, hemoglobin 10.9, sodium 136, creatinine 1.3, EGFR 45, calcium 13.7, lactic acid 0, procalcitonin 10.1. UA was obtained and showed 2+ leukocyte, 21-50 WBC, rare bacteria. Urine and blood cultures were obtained and are pending. Her urine culture from 12/31/2023 resulted with Enterococcus species. She was started on meropenem. Patient had an EGD and colonoscopy on 01/06/2024. The EGD was unremarkable. Colonoscopy shown colitis and rectal stenosis. Biopsies were taken and sent off for cytology. Vital signs are stable, she is afebrile she is on room air. She stable at this time for discharge. She will need to follow up with her primary care physician in 1 week and follow up outpatient for PT and OT. Final diagnosis: Sepsis, UTI, hypercalcemia, colitis, thyroid nodule Status at Discharge Cognitive/behavioral status at discharge: Alert oriented x4 Functional status at discharge: wheelchair bound Overall status at discharge: patient is progressing back to baseline Time Spent with Patient Time attestation: Total time spent providing and/or coordinating discharge services: Time spent: Greater than 30 minutes Exam Narrative: General: In no acute distress, well nourished Cardiac: Normal S1 and S2. RRR, No murmur, gallops or friction rubs, peripheral pulses intact. Respiratory: Lungs clear to auscultation, no adventitious lung sounds, currently on room air Gastrointestinal: soft, non-distended, non-tender, hyperactive bowel sounds. : Marcos catheter in place Extremities: paraplegic at baseline Skin: decubitus ulcer coccyx with dressing in place Neuro: Alert and oriented x4 DS: Data Data Completed and Pending Completed studies during hospitalization: Abdomen pelvis CT Thyroid ultrasound Guided needle placement ultrasound Chest x-ray Pending studies at discharge: Pending at discharge 01/06/24 14:44 Surgical [PTH] Routine 01/03/24 10:57 Cytology [PTH] Routine Labs on day of discharge: Labs from last 24 hours 01/07/24 01/07/24 01/07/24 11:57 08:25 05:23 WBC 5.3 RBC 2.73 L Hgb 8.0 L Hct 24.8 L MCV 90.8 MCH 29.3 MCHC 32.3 RDW 13.9 Plt Count 157 MPV 9.9 Immature Gran % (Auto) 0.4 Neut % (Auto) 48.1 Lymph % (Auto) 40.1 Campbell % (Auto) 7.2 Eos % (Auto) 3.6 Baso % (Auto) 0.6 Lymph # (Auto) 2.12 Campbell # (Auto) 0.4 Eos # (Auto) 0.2 Baso # (Auto) 0.0 Abs Immat Gran (auto) 0.02 Absolute Neuts (auto) 2.6 Absolute Nucleated RBC 0.000 Nucleated RBC % 0.0 Sodium 139 Potassium 3.4 Chloride 109 H Carbon Dioxide 24 Anion Gap 6 BUN 15 Creatinine 0.80 Estim Creat Clear Calc 99 Estimated GFR > 60 Glucose 130 H P
[2024-01-07] MEDS: METOCLOPRAMIDE HCL INJ 10 MG/2 ML VIAL 5 MG IV PUSH (14:42)
--- NOTE | 2024-01-07 17:24 | WPDGIPROGNO ---
Progress Note: A&P Assessment and Plan (1) Ischemic colitis: Code(s): K55.9 - Vascular disorder of intestine, unspecified Status: Acute Assessment and Plan: rectosigmoid site she is doing much better, good appetite and no pain pending biopsies consider to repeat colonoscopy in 1 year (2) Stage IV pressure ulcer of sacral region: Code(s): L89.154 - Pressure ulcer of sacral region, stage 4 Status: Chronic (3) Intractable nausea and vomiting: Code(s): R11.2 - Nausea with vomiting, unspecified Status: Acute Assessment and Plan: resolved s/p egd (4) Paraplegia: Code(s): G82.20 - Paraplegia, unspecified Status: Chronic Subjective Date/time seen: 01/07/24 17:00 Interval history: doing well tolerating diet, she is going to be discharged colonoscopy noted ischemic colitis in rectosigmoid s/p balloon dilation Review of Systems Review of Systems: All systems reviewed & are unremarkable except as noted in HPI and below Exam Narrative: General: In no acute distress, well nourished Cardiac: Normal S1 and S2. RRR. Respiratory: Lungs clear to auscultation, no adventitious lung sounds, currently on room air Gastrointestinal: soft, non-distended, non-tender, + bowel sounds. : Marcos catheter in place Extremities: paraplegic at baseline Skin: decubitus ulcer coccyx with dressing in place Neuro: Alert and oriented x4 Objective Data Vital Signs Vital Signs: Vital Signs - 24 hr 01/06/24 20:53 01/06/24 20:00 01/06/24 20:40 Temperature 98.1 F Pulse Rate 108 H 108 H 108 H Respiratory Rate 16 18 Blood Pressure 167/61 H Pulse Oximetry 100 100 Oxygen Delivery Room Air Fraction of Inspired Oxygen 01/07/24 04:45 01/07/24 09:24 01/07/24 09:26 Temperature 97.8 F Pulse Rate 83 90 Respiratory Rate 18 Blood Pressure 120/65 Pulse Oximetry 97 Oxygen Delivery Room Air Fraction of Inspired Oxygen Intake/Output Intake/Output: Intake & Output 01/04/24 01/05/24 01/06/24 01/07/24 23:59 23:59 23:59 23:59 Intake Total 3620 3968.3 2940.0 2915 Output Total 2200 3100 3420 1650 Balance 1420 868.3 -480.0 1265 Meds/Results Radiology Results: ITS Impressions Chest X-Ray 01/01/24 22:57 IMPRESSION: No acute cardiopulmonary pathology. Abdomen/Pelvis CT 01/02/24 05:38 Impression: Small nonobstructing renal stones and small areas urinary bladder stones. No hydronephrosis or ureteral stones seen. Stable probable circumferential wall thickening focally the distal rectum with infiltration of presacral fat. Underlying colonic malignancy not excluded. Sacral decubitus ulcer with probable focal osteomyelitis of S6. Thyroid Ultrasound 01/02/24 17:01 IMPRESSION: 1. Nodules at the inferior aspect of both the right and left thyroid lobes, the larger TI RADS 4 nodule measuring 1.8 cm on the right and the smaller 1.2 cm TI RADS 3 nodule on the left. The former meets criteria for ultrasound-guided biopsy. Differential for both nodules, given the position as well as the provided history of hypercalcemia would also include parathyroid adenoma and could also consider parathyroid scintigraphy for correlation. Guidance Needle Placement Ultrasound 01/03/24 11:49 IMPRESSION: 1. Successful ultrasound-guided fine needle aspiration of a 1.8 cm TI RADS 4 nodule at the inferior right thyroid. Labs Labs: Laboratory Results - last 24 hr 01/06/24 01/07/24 01/07/24 20:42 05:23 08:25 WBC 5.3 RBC 2.73 L Hgb 8.0 L Hct 24.8 L MCV 90.8 MCH 29.3 MCHC 32.3 RDW 13.9 Plt Count 157 MPV 9.9 Immature Gran % (Auto) 0.4 Neut % (Auto) 48.1 Lymph % (Auto) 40.1 Addison % (Auto) 7.2 Eos % (Auto) 3.6 Baso % (Auto) 0.6 Lymph # (Auto) 2.12 Addison # (Auto) 0.4 Eos # (Auto) 0.2 Baso # (Auto) 0.0 Abs Immat Gran (auto) 0.02 Absolute Neuts (auto) 2.6 Absolute N
[2024-01-08 13:23] LABS: Vitamin D 1,25 (OH)2 Total 8 pg/mL (18-72); Vitamin D2 1,25 (OH)2 <8 pg/mL; Vitamin D3 1,25 (OH)2 8 pg/mL
== END 2024-01-07 17:15 | disposition home or self-care (01) | DRG 699 ==
LOC: ANHED 01-02 00:48 → ANHIMU 01-02 01:18 → ANH2MED 01-02 17:42
PROVIDERS: Internal Medicine Gastroenterology; Physician Assistant; Admitting Provider Internal Medicine; Emergency Provider Emergency Medicine; PCP Family Medicine; Visit Provider Nurse Practitioner Acute Care
PROC: 0DJ08ZZ Inspection of Upper Intestinal Tract, Via Natural or Artificial Opening Endoscopic (ICD-10-PCS; CPT 43235; principal; 2024-01-06 17:00)
DX: T83.511A Infection and inflammatory reaction due to indwelling urethral catheter, initial encounter (principal); G82.20 Paraplegia, unspecified; M46.28 Osteomyelitis of vertebra, sacral and sacrococcygeal region; K55.9 Vascular disorder of intestine, unspecified; N39.0 Urinary tract infection, site not specified; K62.4 Stenosis of anus and rectum; L89.159 Pressure ulcer of sacral region, unspecified stage; E83.52 Hypercalcemia; E10.42 Type 1 diabetes mellitus with diabetic polyneuropathy; E78.5 Hyperlipidemia, unspecified; D64.9 Anemia, unspecified; K21.9 Gastro-esophageal reflux disease without esophagitis; N20.0 Calculus of kidney; N31.9 Neuromuscular dysfunction of bladder, unspecified; R11.2 Nausea with vomiting, unspecified; I69.865 Other paralytic syndrome following other cerebrovascular disease, bilateral; Z87.891 Personal history of nicotine dependence; Z86.718 Personal history of other venous thrombosis and embolism; Z79.4 Long term (current) use of insulin; Z99.3 Dependence on wheelchair
CPT/HCPCS: 10005; 36415; 71046; 74176; 76536; 80048; 80053; 81001; 82340; 82565; 82607; 82652; 82728; 82746; 82948; 83540; 83550; 83605; 83735; 83970; 84075; 84100; 84145; 84443; 84466; 85025; 87040; 87086; 87088; 88172; 88173; 88305; 93005; 96361; 96365; 96366; 96367; 96374; 96375; 96376; 97162; 97166; 99285; A9270; G0378; J1170; J1756; J1815; J2185; J2270; J2405; J2430; J2470; J2704; J2765; J3370; J7030; J7050; J7070; J7120

== ENCOUNTER 2024-01-11 20:46 | Inpatient (IN) | payer OTHER, MEDICAID, SELFPAY ==
--- NOTE | ~2024-01-11 | XR_ITS ---
XR abdomen obstructive series Ordering provider: Jose De Jesus Apple MD History: . diarrhea . Comparison: None. FINDINGS: BOWEL: Nonobstructive bowel gas pattern. ORGANOMEGALY: None. SIGNIFICANT PATHOLOGIC CALCIFICATIONS: None. OTHER: No free air is seen under the diaphragm. IMPRESSION: NO ACUTE ABDOMINAL FINDINGS. Reviewed, dictated and finalized at location A.
--- NOTE | ~2024-01-11 | CT_ITS ---
EXAMINATION: CT abdomen pelvis w con DATE: 01/11/2024 22:38 INDICATION: Paraplegic patient with sacral/right buttock wound TECHNIQUE: Computed tomography (CT) of the abdomen and pelvis was performed without intravenous contr ast. Automated exposure control and iterative reconstruction technique were employed. Exam dose: 572 .78 mGy-cm total exam DLP. COMPARISON: 01/02/2024 CT abdomen pelvis FINDINGS: The lung bases are clear. Normal heart size. No pericardial or pleural effusion. The lung bases are clear. The liver and spleen are unremarkable. The gallbladder is distended; no gallbladder wall thickening o r pericholecystic fat stranding or fluid is noted. No bile duct or pancreatic duct dilatation. No pancreatic mass lesion or calcification. No renal mass lesion is evident. The spleen is unremarkable. Approximately 2 mm nonobstructing lower pole right renal calculus. There are 2 or 3 similar a small n onobstructing left renal calculi. No hydronephrosis of either kidney. Prominent volume loss and scarring of the left kidney likely due to chronic pyelonephritis. There is atherosclerotic calcification but normal caliber of the abdominal aorta. No intraperitoneal or retroperitoneal or pelvic mass lesion or adenopathy or ascites is noted. There is a Marcos catheter within the urinary bladder. Urinary bladder is relatively evacuated. The ur inary bladder wall appears of diffuse prominent thickness; consider neurogenic bladder versus cystiti s and/or underdistention because. Recommend clinical correlation for possible cystitis. 1.5 cm hypoattenuating lesion of the uterus, likely a fibroid. There is a prominent amount of fecal material in the rectum and the colon. No bowel obstruction or in traperitoneal free is air is detected. Again noted is a left parasagittal sacral ulcer with underlying focal liver sacral bone destruction c onsistent with osteomyelitis. IMPRESSION: Left parasagittal sacral ulcer with subjacent focal distal sacral osteomyelitis Mild bilateral nonobstructive nephrolithiasis Chronic pyelonephritis the left kidney Diffuse thickening. Bladder wall which may be due to neurogenic cause versus cystitis; recommend clin ical correlation Reviewed, dictated and finalized at [facility]. Reviewed, dictated and finalized at location J. IMPRESSION: Left parasagittal sacral ulcer with subjacent focal distal sacral osteomyelitis Mild bilateral nonobstructive nephrolithiasis Chronic pyelonephritis the left kidney Diffuse thickening. Bladder wall which may be due to neurogenic cause versus cy stitis; recommend clinical correlation
[2024-01-11 20:49] VITALS: BP 150/76; PULSE 94; RESP 16; TEMP 37.2; O2SAT 100
[2024-01-11 21:17] LABS: BEDSIDEPREGUCG Negative
[2024-01-11 21:19] LABS: Basophils Absolute Auto 0.1 K/mm3 (0.0-0.1); Basophils Percent Auto 0.7 % (0.2-1.2); Eosinophils Absolute Auto 0.1 K/mm3 (0-0.3); Eosinophils Percent Auto 1.9 % (0-4.4); Hematocrit 29.6 % (37.0-47.0); Hemoglobin 9.9 g/dL (12.0-15.0); Immature Granulocyte Percent A 1.4 % (0-0.5); Lymphocytes Absolute Auto 2.02 K/mm3 (0.9-3.2); Lymphocytes Percent Auto 29.2 % (18.3-44.2); Mean Corpuscular HGB Conc 33.4 g/dl (32-36); Mean Corpuscular Hemoglobin 29.9 pg (26-34); Mean Corpuscular Volume 89.4 fl (80-100); Mean Platelet Volume 9.3 fl (7.4-10.4); Monocytes Absolute Auto 0.6 K/mm3 (0.1-0.6); Monocytes Percent Auto 8.1 % (2.6-8.5); Neutrophils Absolute Auto 4.1 K/mm3 (1.3-6.7); Neutrophils Percent Auto 58.7 % (45.5-73.1); Platelet Count Result 273 k/mm3 (150-375); Red Blood Count 3.31 M/mm3 (4.2-5.4); Red Cell Distribution Width 14.2 % (11.5-14.5); White Blood Count 6.9 K/mm3 (4.5-10.0)
[2024-01-11 21:29] LABS: Alanine Aminotransferase 18 U/L (6-35); Albumin Level 3.8 g/dL (3.5-5.1); Alkaline Phosphatase 97 U/L (38-126); Anion Gap 10 mmol/L (4-12); Aspartate Amino Transferase 21 U/L (14-36); Bilirubin,Total 0.3 mg/dL (0.2-1.3); Blood Urea Nitrogen 9 mg/dL (7-17); Calcium 8.5 mg/dL (8.4-10.2); Carbon Dioxide 23 mmol/L (22-30); Chloride 106 mmol/L (98-107); Estimated CRCL calculation 105 ml/min; Estimated Glomerular Filt Rate > 60; Glucose 115 mg/dL (65-110); Lipase 45 U/L (23-300); Potassium 3.6 mmol/L (3.4-5.0); Sodium 139 mmol/L (137-145)
--- NOTE | 2024-01-11 21:39 | ED.WEAKNESS ---
HPI - Weakness General Chief complaint: Nausea/Vomiting/Diarrhea Stated complaint: weak Time Seen by Provider: 01/11/24 21:35 Source: patient Mode of arrival: EMS Limitations: physical limitation History of Present Illness HPI Narrative: Patient presents complaint of weakness nausea vomiting and dizziness no fevers. She has a history of aortic bypass complicated by spinal cord stroke that left her paraplegic. She has been laying in bed the last few days smoking marijuana. She is bed confined. Has an ulcer on her buttock that she describes as burning. Also has an indwelling catheter. Goes to [facility] every 2 weeks, currently using Aquacell on it. Daughter helps with dressing changes but patient states it isn't going well and she doesn't feel like she can be safe at home right now given she is not improving. LBM this morning; no diarrhea, constipation bleeding. Related Data Home Medications Medication Instructions Recorded Confirmed atorvastatin 20 mg tablet 20 mg PO HS 11/10/23 01/12/24 gabapentin 600 mg tablet 600 mg PO TID 11/10/23 01/12/24 trazodone 100 mg tablet 100 mg PO HS 11/10/23 01/12/24 melatonin 10 mg tablet 10 mg PO HS 01/12/24 01/12/24 Allergies Allergy/AdvReac Type Severity Reaction Status Date / Time azithromycin Allergy Unknown Hives Verified 01/11/24 20:56 amoxicillin AdvReac Unknown Verified 01/11/24 20:56 [facility] Past Medical History Medical History (Updated 01/12/24 @ 01:03 by Gabriella Hood MD) Abnormality of rectum Aortic thrombus Clostridium difficile diarrhea Deep venous thrombosis Diabetic peripheral neuropathy Hyperlipidemia Intractable nausea and vomiting Ischemic colitis Neurogenic bladder Paraplegia Spinal cord stroke Type 1 diabetes mellitus Surgical History Surgical History History of aorto-femoral bypass [facility] Family History Family History Mother Acute myocardial infarction Diabetes mellitus Hypertension Father History of blood clots Social History Social History Social History: Surrogate medical decision maker: Ml Aguilar, mother. Code status: Full code. Smoking packs per day: 1 Smoking cigarettes per day: 20.0 Years smoked: 25 Smoking pack-years: 25.00 Smoking status: Current every day smoker Tobacco type: cigarettes Alcohol intake: former Substance use: former Substance use type: marijuana Last use: 01/01/2024 Do You Feel Safe in your Home?: Yes Lack of Transportation: No Lack of Food: Never True Current Housing: I Have Housing Concerned About Future Housing: No Difficulty Paying Gas/Electric Bills: No Difficulty Paying for Meds: No Currently Unemployed: No Education: High School Diploma/GED Difficulty w/ Childcare or Family Care: No Additional living arrangements comments: Lives with spouse and children in [place]. Spiritual care concerns: No Exam Narrative: GENERAL: well-nourished, and in no acute distress. HEAD: Normocephalic, atraumatic. EYES: Non injected, non icteric ENT: Nares clear, no rhinorrhea or epistaxis. NECK: Supple. CHEST: Speaking in full sentences. No respiratory distress. HEART: Regular rate and rhythm. . ABDOMEN: Soft, nondistended. EXTREMITIES: No edema. : Indwelling Marcos catheter. SKIN: Warm, dry. Deep sacral wound that with purulent malodorous discharge. No packing in wound though there was some gauze balled up adjacent to it when overlying dressing taken down. Probes deep. NEURO: Paraplegic. Alert and oriented x3. PSYCH: Congruent mood and affect. Course Vital Signs Vital signs: Vital Signs Temperature 98.9 F 01/11/24 20:49 Pulse Rate 94 01/11/24 20:49 Respiratory Rate 16 01/11/24 20:49 Blood Pressure 150/76 H 01/11/24 20:49 Pulse Oximetry 100 01/10
[2024-01-11 21:47] LABS: Appearance Urine Turbid (Clear); Bacteria Urine 4+ /hpf; Bilirubin Urine Negative (Negative); Blood Urine Non-Hemolyzed Trace (Negative); Color Urine Yellow (Yellow); Glucose Urine UA Negative (Negative); Ketones Urine Negative (Negative); Leukocyte Esterase Ur 3+ LEU/UL (Negative); Need Manual Microscopic Reviewed; Nitrate Urine Positive (Negative); Protein Urine Negative (Negative); Specific Grav Ur 1.008 (1.001-1.035); Squamous Epithelial Cell Urine None Seen /hpf (Few); Urobilinogen Urine 0.2 mg/dL (<2.0); WBC Urine >100 /hpf (0-3)
[2024-01-11 21:48] LABS: Add Urine Microscopic? YES
[2024-01-11] MEDS: SODIUM CHLORIDE 0.9% IV 1,000 ML 999 ML IV CONT (22:16)
[2024-01-11] MEDS: ONDANSETRON INJ 4 MG/2 ML VIAL IV PUSH (22:16)
[2024-01-11] MEDS: MORPHINE SULFATE (*CRX) 4 MG/ML INJ IV PUSH (22:16)
[2024-01-11 23:35] LABS: Lactic Acid Reflex 0.7 mmol/L (0.7-2.0)
[2024-01-12] VITALS (9 sets, daily range): BP systolic 135–164; BP diastolic 60–92; PULSE 64–89; RESP 15–18; TEMP 36.3–36.7; O2SAT 97–100; BMI 22.7
[2024-01-12] MEDS: MORPHINE SULFATE (*CRX) 4 MG/ML INJ IV PUSH (01:38)
--- NOTE | 2024-01-12 01:52 | PM.IMHP ---
H&P: HPI History of Present Illness Date/Time: 01/12/24 01:52 Chief Complaint: generalized weakness Narrative: This is a 43 yo female with PMHx significant for spinal stroke, AAA, T2DM, neurogenic bladder, chronic indwelling Marcos catheter, chronic decubitus sacral ulcer, patient presents to ED had recent admission and treated for UTI. Today comes due to n/v, generalizd weakness, worsening decubitus ulcer. EXAMINATION: CT abdomen pelvis w con DATE: 01/11/2024 22:38 INDICATION: Paraplegic patient with sacral/right buttock wound TECHNIQUE: Computed tomography (CT) of the abdomen and pelvis was performed without intravenous contrast. Automated exposure control and iterative reconstruction technique were employed. Exam dose: 572.78 mGy-cm total exam DLP. COMPARISON: 01/02/2024 CT abdomen pelvis FINDINGS: The lung bases are clear. Normal heart size. No pericardial or pleural effusion. The lung bases are clear. The liver and spleen are unremarkable. The gallbladder is distended; no gallbladder wall thickening or pericholecystic fat stranding or fluid is noted. No bile duct or pancreatic duct dilatation. No pancreatic mass lesion or calcification. No renal mass lesion is evident. The spleen is unremarkable. Approximately 2 mm nonobstructing lower pole right renal calculus. There are 2 or 3 similar a small nonobstructing left renal calculi. No hydronephrosis of either kidney. Prominent volume loss and scarring of the left kidney likely due to chronic pyelonephritis. There is atherosclerotic calcification but normal caliber of the abdominal aorta. No intraperitoneal or retroperitoneal or pelvic mass lesion or adenopathy or ascites is noted. There is a Marcos catheter within the urinary bladder. Urinary bladder is relatively evacuated. The urinary bladder wall appears of diffuse prominent thickness; consider neurogenic bladder versus cystitis and/or underdistention because. Recommend clinical correlation for possible cystitis. 1.5 cm hypoattenuating lesion of the uterus, likely a fibroid. There is a prominent amount of fecal material in the rectum and the colon. No bowel obstruction or intraperitoneal free is air is detected. Again noted is a left parasagittal sacral ulcer with underlying focal liver sacral bone destruction consistent with osteomyelitis. IMPRESSION: Left parasagittal sacral ulcer with subjacent focal distal sacral osteomyelitis Mild bilateral nonobstructive nephrolithiasis Chronic pyelonephritis the left kidney Diffuse thickening. Bladder wall which may be due to neurogenic cause versus cystitis; recommend clinical correlation Review of Systems Review of Systems: generalized weakness, decubitus wound. Constitutional: Constitutional: Reports weakness Eyes: Eyes: Denies change in vision ENT: Denies dysphagia and Denies odynophagia Cardiovascular: Cardiovascular: Denies chest pain, Denies orthopnea and Denies paroxysmal nocturnal dyspnea Respiratory: Respiratory: Denies cough Gastrointestinal: Gastrointestinal: Reports nausea and Reports vomiting Genitourinary: Genitourinary: Reports other (chronic indwelling Marcos catheter) Musculoskeletal: Musculoskeletal: Reports back pain Integumentary/Breasts: Skin/Breast: Reports wounds (sacral) Neurologic: Reports abnormal gait (paraplegia.) Psychiatric: Psychiatric: Reports no additional psychiatric complaints and Reports as per HPI Endocrine: Endocrine: Denies cold intolerance, Denies heat intolerance, Denies polyphagia, Denies polydipsia, Denies polyuria and Denies palpitations Hematologic/Lymphatic: Hematologic/Lymphatic: Reports no additional hematologic/lymphatic complaints and Reports as per HPI Allergic/Immunologic: Allergic/Immunologic: Reports no additional allergic/immunologic complaints and Reports as per HPI [facility] Past Medical History Medical History (Updated 01/12/24 @ 01:03 by Gabriella Hood MD) Abnormality of rectum Aortic thrombus
--- NOTE | 2024-01-12 02:50 | ADMGEN ---
This patient, Jill Villa, was admitted to Medical Room 246-. Patient/family oriented to hospital policies and general routines including ID bracelet, bed and alarms, visiting hours, pain management, procedures, bathroom and other care routines, personal items, smoking policy, room service/diet, and visiting hours. Information on how to activate the Rapid Response Team has been discussed. Patient/Family are encouraged to report perceived risks to care and to ask questions if they do not understand what they are told or what they should do.
[2024-01-12] MEDS: HYDROmorphone HCL INJ (*CRX) 1 MG/ML SYR IV PUSH (03:35)
[2024-01-12] MEDS: HYDROcodone/acetaminophen (*CRX) 10-325 MG TABLET 1 TAB PO ×4 (06:22→19:43)
[2024-01-12 08:38] LABS: Glucose Point of Care 113 mg/dl (65-105)
[2024-01-12] MEDS: GABAPENTIN 300 MG CAPSULE 600 MG PO ×3 (10:05→17:41)
[2024-01-12] MEDS: ONDANSETRON INJ 4 MG/2 ML VIAL IV PUSH (10:14)
--- NOTE | 2024-01-12 12:30 | PM.IMPN ---
Progress Note: A&P Assessment and Plan (1) Urinary tract infection associated with indwelling urethral catheter: Qualifiers: Encounter type: initial encounter Qualified Code(s): T83.511A - Infection and inflammatory reaction due to indwelling urethral catheter, initial encounter; N39.0 - Urinary tract infection, site not specified Code(s): T83.511A - Infection and inflammatory reaction due to indwelling urethral catheter, initial encounter; N39.0 - Urinary tract infection, site not specified Status: Acute (2) Pressure ulcer of sacral region, stage 4: Code(s): L89.154 - Pressure ulcer of sacral region, stage 4 Status: Acute (3) Intractable nausea and vomiting: Code(s): R11.2 - Nausea with vomiting, unspecified Status: Acute (4) Normocytic anemia: Code(s): D64.9 - Anemia, unspecified Status: Acute (5) Diabetic peripheral neuropathy: Code(s): E11.42 - Type 2 diabetes mellitus with diabetic polyneuropathy Status: Acute (6) Neurogenic bladder: Code(s): N31.9 - Neuromuscular dysfunction of bladder, unspecified Status: Acute (7) Paraplegia: Code(s): G82.20 - Paraplegia, unspecified Status: Chronic Plan This is a 43-year-old female who presents to the hospital on 01/01/2024 with weakness and UTI. Patient was recently seen and treated for this urinary tract infection and similar symptom. Discharged on 01/07/2020 patient presents again with nausea vomiting generalized weakness worsening decubitus ulcer. Acceptable vital signs. She 6.9 hemoglobin cleared up to 173. Renal function was normal. Lactate was normal at 0.7. Urinalysis was positive for UTI. ct abdomen: Left parasagittal sacral ulcer with subjacent focal distal sacral osteomyelitis Mild bilateral nonobstructive nephrolithiasis Chronic pyelonephritis the left kidney Diffuse thickening. Bladder wall which may be due to neurogenic cause versus cystitis; recommend clinical correlation Follow urine culture. She has been started on ceftriaxone. History of Enterococcus infection. will start meropenem. 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 Will get a wound culture from sacral decubitus ulcer. Nausea vomiting EGD and colonoscopy was recently performed which showed: EGD unremarkable, colonoscopy showed colitis and rectal stenosis. Type 1 diabetes on insulin at line spinal cord stroke. He was having paresthesia to her feet and Workup revealed Aortic disease requiring surgery. She had surgery in [place] in May 2023 complicated with spinal cord stroke resulting in paraplegia and long complicated course. CT with osteomyelitis requiring long-term IV antibiotics. Also has neurogenic bladder DVT prophylaxis Lovenox Subjective Date/time seen: 01/12/24 12:30 Interval history: no overnight event,s complais of pain in the back, no other complaints. no nausea, vomiting. Review of Systems Review of Systems: All systems reviewed & are unremarkable except as noted in HPI and below Exam Narrative: GENERAL: Well-appearing, well-nourished, and in no acute distress. HEAD: Normocephalic, atraumatic. EYES: Non injected, non icteric ENT: Nares clear, no rhinorrhea or epistaxis. CHEST: Speaking in full sentences. No respiratory distress. HEART: Regular rate and rhythm. . ABDOMEN: Soft, nondistended. EXTREMITIES: Normal range of motion. No edema. Sacral decubitus ulcer noted with minimal drainage no foul smell much smaller than what I have seen before SKIN: Warm, dry, no rash. NEURO: No focal deficits. Alert and oriented x3. PSYCH: Normal mood and affect. Objective Data Vital Signs Vital Signs: Vital Signs - 24 hr 01/11/24 20:49 01/12/24 00:08 01/12/24 01:38 Temperature 98.9 F Pulse Rate 94 89 72 Respiratory Rate 16 16 15 Blood Pressure 150/76 H 148/92 H 164/78 H Pulse Oximetry 100 100 98 Oxygen Delivery Room Air 01/12/24 03:02 01/12/24 02
[2024-01-12 12:35] LABS: Glucose Point of Care 116 mg/dl (65-105)
[2024-01-12] MEDS: MORPHINE SULFATE (*CRX) 2 MG/ML INJ IV PUSH ×2 (12:51→21:37)
[2024-01-12 13:43] LABS: Hemoglobin A1C 6.2 % (<5.7)
[2024-01-12] MEDS: MEROPENEM 1 GM/NS 100 ML 1 GM/100 ML BAG IVPB ×2 (14:41→20:59)
[2024-01-12 17:07] LABS: Glucose Point of Care 110 mg/dl (65-105)
[2024-01-12] MEDS: NICOTINE (*PBKC) 21 MG PATCH 1 PATCH TRANSDERM (17:41)
[2024-01-12 20:02] LABS: Glucose Point of Care 120 mg/dl (65-105)
[2024-01-12] MEDS: ATORVASTATIN 20 MG TABLET PO (20:59)
[2024-01-12] MEDS: MELATONIN 5 MG TABLET 10 MG PO (21:00)
[2024-01-12] MEDS: traZODone HCL 50 MG TABLET 100 MG PO (21:00)
[2024-01-13 00:47] LABS: Glucose Point of Care 132 mg/dl (65-105)
[2024-01-13] MEDS: HYDROcodone/acetaminophen (*CRX) 10-325 MG TABLET 1 TAB PO ×4 (04:13→21:16)
[2024-01-13 05:15] LABS: Basophils Absolute Auto 0.1 K/mm3 (0.0-0.1); Basophils Percent Auto 0.9 % (0.2-1.2); Eosinophils Absolute Auto 0.1 K/mm3 (0-0.3); Eosinophils Percent Auto 1.7 % (0-4.4); Hematocrit 27.5 % (37.0-47.0); Hemoglobin 8.9 g/dL (12.0-15.0); Immature Granulocyte Percent A 1.8 % (0-0.5); Lymphocytes Percent Auto 34.9 % (18.3-44.2); Mean Corpuscular HGB Conc 32.4 g/dl (32-36); Mean Corpuscular Hemoglobin 30.1 pg (26-34); Mean Corpuscular Volume 92.9 fl (80-100); Mean Platelet Volume 9.7 fl (7.4-10.4); Monocytes Absolute Auto 0.6 K/mm3 (0.1-0.6); Monocytes Percent Auto 11.6 % (2.6-8.5); Neutrophils Absolute Auto 2.7 K/mm3 (1.3-6.7); Neutrophils Percent Auto 49.1 % (45.5-73.1); Platelet Count Result 241 k/mm3 (150-375); Red Blood Count 2.96 M/mm3 (4.2-5.4); Red Cell Distribution Width 14.9 % (11.5-14.5); White Blood Count 5.4 K/mm3 (4.5-10.0)
[2024-01-13] MEDS: MORPHINE SULFATE (*CRX) 2 MG/ML INJ IV PUSH ×4 (05:18→23:38)
[2024-01-13] MEDS: MEROPENEM 1 GM/NS 100 ML 1 GM/100 ML BAG IVPB ×3 (05:19→21:19)
[2024-01-13 05:28] LABS: Alanine Aminotransferase 17 U/L (6-35); Albumin Level 3.3 g/dL (3.5-5.1); Alkaline Phosphatase 81 U/L (38-126); Anion Gap 9 mmol/L (4-12); Aspartate Amino Transferase 23 U/L (14-36); Bilirubin,Total 0.2 mg/dL (0.2-1.3); Blood Urea Nitrogen 8 mg/dL (7-17); Calcium 7.9 mg/dL (8.4-10.2); Carbon Dioxide 20 mmol/L (22-30); Chloride 110 mmol/L (98-107); Estimated CRCL calculation 115 ml/min; Estimated Glomerular Filt Rate > 60; Glucose 99 mg/dL (65-110); Magnesium 1.8 mg/dL (1.6-2.3); Potassium 3.5 mmol/L (3.4-5.0); Sodium 139 mmol/L (137-145)
[2024-01-13 05:37] VITALS: BP 128/61; PULSE 64; RESP 20; TEMP 36.7; O2SAT 98
--- NOTE | 2024-01-13 08:05 | PCCCNOTE ---
01/09/24 Received call from pt. today. Reports she is home and is requesting to go into [facility]. Continues to refuse NH placement in a local SNF facility. Reviewed last admission with pt. via phone and she is aware that [facility] acute rehab is not an option. Swing bed at [facility] had denied pt. as well. Informed pt. that [facility] rehab is not an option, [facility]p placement would be able to be done under her Medicaid. Offered to email pt. a SNF/NH list that would potentially take her IPA, however she denies wanting this and refused email NH list.
[2024-01-13 08:08] LABS: Glucose Point of Care 101 mg/dl (65-105)
[2024-01-13] MEDS: NICOTINE (*PBKC) 21 MG PATCH 1 PATCH TRANSDERM (09:04)
[2024-01-13] MEDS: GABAPENTIN 300 MG CAPSULE 600 MG PO ×3 (09:05→17:44)
[2024-01-13] MEDS: ENOXAPARIN 40 MG/0.4 ML SYRINGE SUB-Q (09:05)
[2024-01-13 11:55] LABS: Glucose Point of Care 128 mg/dl (65-105)
--- NOTE | 2024-01-13 12:07 | PM.IMPN ---
Progress Note: A&P Assessment and Plan (1) Urinary tract infection associated with indwelling urethral catheter: Qualifiers: Encounter type: initial encounter Qualified Code(s): T83.511A - Infection and inflammatory reaction due to indwelling urethral catheter, initial encounter; N39.0 - Urinary tract infection, site not specified Code(s): T83.511A - Infection and inflammatory reaction due to indwelling urethral catheter, initial encounter; N39.0 - Urinary tract infection, site not specified Status: Acute (2) Pressure ulcer of sacral region, stage 4: Code(s): L89.154 - Pressure ulcer of sacral region, stage 4 Status: Acute (3) Intractable nausea and vomiting: Code(s): R11.2 - Nausea with vomiting, unspecified Status: Acute (4) Normocytic anemia: Code(s): D64.9 - Anemia, unspecified Status: Acute (5) Diabetic peripheral neuropathy: Code(s): E11.42 - Type 2 diabetes mellitus with diabetic polyneuropathy Status: Acute (6) Neurogenic bladder: Code(s): N31.9 - Neuromuscular dysfunction of bladder, unspecified Status: Acute (7) Paraplegia: Code(s): G82.20 - Paraplegia, unspecified Status: Chronic Plan This is a 43-year-old female who presents to the hospital on 01/01/2024 with weakness and UTI. Patient was recently seen and treated for this urinary tract infection and similar symptom. Discharged on 01/07/2020 patient presents again with nausea vomiting generalized weakness worsening decubitus ulcer. Acceptable vital signs. She 6.9 hemoglobin cleared up to 173. Renal function was normal. Lactate was normal at 0.7. Urinalysis was positive for UTI. ct abdomen: Left parasagittal sacral ulcer with subjacent focal distal sacral osteomyelitis Mild bilateral nonobstructive nephrolithiasis Chronic pyelonephritis the left kidney Diffuse thickening. Bladder wall which may be due to neurogenic cause versus cystitis; recommend clinical correlation Follow urine culture. She has been started on ceftriaxone. History of Enterococcus infection. will start meropenem. 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 Wound culture from sacral decubitus ulcer growing Enterobacter. Urine growing Klebsiella await cultures. Plan to treat for osteomyelitis for 6 weeks course. unknown if oral or IV Nausea vomiting EGD and colonoscopy was recently performed which showed: EGD unremarkable, colonoscopy showed colitis and rectal stenosis. Type 1 diabetes on insulin at line spinal cord stroke. He was having paresthesia to her feet and Workup revealed Aortic disease requiring surgery. 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 CT with osteomyelitis requiring long-term IV antibiotics. Also has neurogenic bladder DVT prophylaxis Lovenox Subjective Date/time seen: 01/13/24 12:07 Interval history: No new complaints. Wants to work with therapy. no new complaints. Review of Systems Review of Systems: All systems reviewed & are unremarkable except as noted in HPI and below Exam Narrative: GENERAL: Well-appearing, well-nourished, and in no acute distress. HEAD: Normocephalic, atraumatic. EYES: Non injected, non icteric ENT: Nares clear, no rhinorrhea or epistaxis. CHEST: Speaking in full sentences. No respiratory distress. HEART: Regular rate and rhythm. . ABDOMEN: Soft, nondistended. EXTREMITIES: Normal range of motion. No edema. Sacral decubitus ulcer noted with minimal drainage no foul smell much smaller than what I have seen before SKIN: Warm, dry, no rash. NEURO: No focal deficits. Alert and oriented x3. PSYCH: Normal mood and affect. Objective Data Vital Signs Vital Signs: Vital Signs - 24 hr 01/12/24 12:46 01/12/24 14:34 01/12/24 19:49 Temperature 97.4 F L 97.5 F L Pulse Rate 64 66 68 Respiratory Rate 16 17 16 Blood Pressure
[2024-01-13 13:18] VITALS: BMI 22.7
[2024-01-13 14:00] VITALS: BP 153/65; PULSE 74; RESP 16; TEMP 37; O2SAT 99
[2024-01-13 16:59] LABS: Glucose Point of Care 158 mg/dl (65-105)
[2024-01-13] MEDS: CYCLOBENZAPRINE HCL 5 MG TABLET PO (17:59)
[2024-01-13 20:50] VITALS: BP 171/73; PULSE 84; RESP 18; TEMP 36.5; O2SAT 100
[2024-01-13 20:55] LABS: Glucose Point of Care 114 mg/dl (65-105)
[2024-01-13] MEDS: traZODone HCL 50 MG TABLET 100 MG PO (21:17)
[2024-01-13] MEDS: MELATONIN 5 MG TABLET 10 MG PO (21:17)
[2024-01-13] MEDS: ATORVASTATIN 20 MG TABLET PO (21:17)
[2024-01-14] MEDS: MEROPENEM 1 GM/NS 100 ML 1 GM/100 ML BAG IVPB ×3 (05:28→21:25)
[2024-01-14] MEDS: MORPHINE SULFATE (*CRX) 2 MG/ML INJ IV PUSH ×3 (05:28→17:41)
[2024-01-14 05:30] VITALS: BP 136/77; PULSE 87; RESP 18; TEMP 36.5; O2SAT 99
[2024-01-14 07:54] LABS: Glucose Point of Care 119 mg/dl (65-105)
[2024-01-14] MEDS: GABAPENTIN 300 MG CAPSULE 600 MG PO ×3 (09:59→17:41)
[2024-01-14] MEDS: ENOXAPARIN 40 MG/0.4 ML SYRINGE SUB-Q (09:59)
[2024-01-14] MEDS: NICOTINE (*PBKC) 21 MG PATCH 1 PATCH TRANSDERM (10:03)
[2024-01-14 11:58] LABS: Glucose Point of Care 131 mg/dl (65-105)
--- NOTE | 2024-01-14 12:38 | PM.IMPN ---
Progress Note: A&P Assessment and Plan (1) Urinary tract infection associated with indwelling urethral catheter: Qualifiers: Encounter type: initial encounter Qualified Code(s): T83.511A - Infection and inflammatory reaction due to indwelling urethral catheter, initial encounter; N39.0 - Urinary tract infection, site not specified Code(s): T83.511A - Infection and inflammatory reaction due to indwelling urethral catheter, initial encounter; N39.0 - Urinary tract infection, site not specified Status: Acute (2) Pressure ulcer of sacral region, stage 4: Code(s): L89.154 - Pressure ulcer of sacral region, stage 4 Status: Acute (3) Intractable nausea and vomiting: Code(s): R11.2 - Nausea with vomiting, unspecified Status: Acute (4) Normocytic anemia: Code(s): D64.9 - Anemia, unspecified Status: Acute (5) Diabetic peripheral neuropathy: Code(s): E11.42 - Type 2 diabetes mellitus with diabetic polyneuropathy Status: Acute (6) Neurogenic bladder: Code(s): N31.9 - Neuromuscular dysfunction of bladder, unspecified Status: Acute (7) Paraplegia: Code(s): G82.20 - Paraplegia, unspecified Status: Chronic Plan This is a 43-year-old female who presents to the hospital on 01/01/2024 with weakness and UTI. Patient was recently seen and treated for this urinary tract infection and similar symptom. Discharged on 01/07/2020 patient presents again with nausea vomiting generalized weakness worsening decubitus ulcer. Acceptable vital signs. She 6.9 hemoglobin cleared up to 173. Renal function was normal. Lactate was normal at 0.7. Urinalysis was positive for UTI. ct abdomen: Left parasagittal sacral ulcer with subjacent focal distal sacral osteomyelitis Mild bilateral nonobstructive nephrolithiasis Chronic pyelonephritis the left kidney Diffuse thickening. Bladder wall which may be due to neurogenic cause versus cystitis; recommend clinical correlation Urine culture growing multi-drug resistant Klebsiella. Sensitive to meropenem which will be continued Wound culture is growing Enterobacter multi-drug resistant sensitive to meropenem and imipenem. Will plan to treat with meropenem/imipenem for above-stated infections along with sacral osteomyelitis for total 6 weeks course Need PICC line placed. She has wanted to go to a nursing facility for rehabilitation along with IV antibiotics treatment. Nausea vomiting EGD and colonoscopy was recently performed which showed: EGD unremarkable, colonoscopy showed colitis and rectal stenosis. Type 1 diabetes on insulin at line spinal cord stroke. He was having paresthesia to her feet and Workup revealed Aortic disease requiring surgery. 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 CT with osteomyelitis requiring long-term IV antibiotics. Also has neurogenic bladder DVT prophylaxis Lovenox Subjective Date/time seen: 01/14/24 12:38 Interval history: Feels low. Discussed about IV antibiotics treatment. Complains of low back pain. Review of Systems Review of Systems: All systems reviewed & are unremarkable except as noted in HPI and below Exam Narrative: GENERAL: Well-appearing, well-nourished, and in no acute distress. HEAD: Normocephalic, atraumatic. EYES: Non injected, non icteric ENT: Nares clear, no rhinorrhea or epistaxis. CHEST: Speaking in full sentences. No respiratory distress. HEART: Regular rate and rhythm. . ABDOMEN: Soft, nondistended. EXTREMITIES: Normal range of motion. No edema. Sacral decubitus ulcer noted with minimal drainage no foul smell much smaller than previously SKIN: Warm, dry, no rash. NEURO: No focal deficits. Alert and oriented x3. PSYCH: Normal mood and affect. Objective Data Vital Signs Vital Signs: Vital Signs - 24 hr 01/13/24 14:00 01/13/24 20:50 01/14/24 05:30 Te
[2024-01-14] MEDS: CITALOPRAM HYDROBROMIDE 10 MG TABLET PO (13:18)
[2024-01-14] MEDS: CYCLOBENZAPRINE HCL 5 MG TABLET PO ×2 (13:27→21:36)
[2024-01-14] MEDS: LORazepam INJ (*CRX) 2 MG/ML VIAL 0.5 MG IV PUSH (13:53)
[2024-01-14 14:00] VITALS: BP 165/87; PULSE 93; RESP 20; TEMP 36.7; O2SAT 100
[2024-01-14] MEDS: LIDOCAINE HCL 1% PF INJ 5 ML VIAL INFILTRATE (14:00)
[2024-01-14] MEDS: HYDROcodone/acetaminophen (*CRX) 10-325 MG TABLET 1 TAB PO ×2 (15:15→19:19)
[2024-01-14 16:49] LABS: Glucose Point of Care 179 mg/dl (65-105)
[2024-01-14 20:30] LABS: Glucose Point of Care 191 mg/dl (65-105)
[2024-01-14 21:22] VITALS: BP 174/80; PULSE 98; RESP 18; TEMP 36.5; O2SAT 98
[2024-01-14] MEDS: traZODone HCL 50 MG TABLET 100 MG PO (21:24)
[2024-01-14] MEDS: MELATONIN 5 MG TABLET 10 MG PO (21:24)
[2024-01-14] MEDS: ATORVASTATIN 20 MG TABLET PO (21:24)
[2024-01-14] MEDS: CENTRAL LINE FLUSH 10 ML IV PUSH (21:26)
[2024-01-14] MEDS: INSULIN GLARGINE (*BKC) 100 UNITS/ML 25 UNITS SUB-Q (21:27)
[2024-01-15] MEDS: MORPHINE SULFATE (*CRX) 2 MG/ML INJ IV PUSH ×4 (00:42→17:50)
[2024-01-15 06:00] VITALS: BP 144/75; PULSE 78; RESP 20; TEMP 35.8; O2SAT 100
[2024-01-15] MEDS: MEROPENEM 1 GM/NS 100 ML 1 GM/100 ML BAG IVPB ×3 (06:01→22:17)
[2024-01-15] MEDS: CENTRAL LINE FLUSH 10 ML IV PUSH ×3 (06:04→22:21)
[2024-01-15 08:10] LABS: Glucose Point of Care 115 mg/dl (65-105)
[2024-01-15 09:00] LABS: Hemoglobin 10.1 g/dL (12.0-15.0); Mean Corpuscular HGB Conc 31.6 g/dl (32-36); Mean Corpuscular Hemoglobin 29.2 pg (26-34); Mean Corpuscular Volume 92.5 fl (80-100); Mean Platelet Volume 9.5 fl (7.4-10.4); Platelet Count Result 213 k/mm3 (150-375); Red Blood Count 3.46 M/mm3 (4.2-5.4); Red Cell Distribution Width 15.1 % (11.5-14.5)
[2024-01-15] MEDS: CITALOPRAM HYDROBROMIDE 10 MG TABLET PO (09:04)
[2024-01-15] MEDS: GABAPENTIN 300 MG CAPSULE 600 MG PO ×3 (09:04→17:50)
[2024-01-15] MEDS: ENOXAPARIN 40 MG/0.4 ML SYRINGE SUB-Q (09:04)
[2024-01-15] MEDS: HYDROcodone/acetaminophen (*CRX) 10-325 MG TABLET 1 TAB PO (09:10)
[2024-01-15 09:18] LABS: Albumin Level 3.5 g/dL (3.5-5.1); Anion Gap 8 mmol/L (4-12); Blood Urea Nitrogen 14 mg/dL (7-17); Calcium 8.7 mg/dL (8.4-10.2); Carbon Dioxide 22 mmol/L (22-30); Chloride 107 mmol/L (98-107); Estimated CRCL calculation 132 ml/min; Estimated Glomerular Filt Rate > 60; Glucose 101 mg/dL (65-110); Phosphorus 2.2 mg/dL (2.5-4.5); Potassium 4.1 mmol/L (3.4-5.0); Sodium 137 mmol/L (137-145)
--- NOTE | 2024-01-15 10:12 | PCOTNOTE ---
Attempted to see Patient at this time. Patient declined at this time due to having very loose stools, waiting on medications, and waiting for a doctor to come see her. Patient requested therapy come back at a later time. She does better in the afternoons. Will attempt again.
[2024-01-15] MEDS: LORazepam (*CRX) 0.5 MG TABLET PO ×2 (10:59→20:28)
--- NOTE | 2024-01-15 12:10 | PM.IMPN ---
Progress Note: A&P Assessment and Plan (1) Urinary tract infection associated with indwelling urethral catheter: Qualifiers: Encounter type: initial encounter Qualified Code(s): T83.511A - Infection and inflammatory reaction due to indwelling urethral catheter, initial encounter; N39.0 - Urinary tract infection, site not specified Code(s): T83.511A - Infection and inflammatory reaction due to indwelling urethral catheter, initial encounter; N39.0 - Urinary tract infection, site not specified Status: Acute Assessment and Plan: Patient presents with GI symptoms. Found to have UTI by UA. UA is consistent with UTI. UCx collected. She has a history of Enterococcus and ESBL Urine test was negative. CT scan showing noted with prominent volume loss and scarring of the left kidney, nonobstructing renal stones, diffuse urinary bladder wall thickening. Rocephin started but change to meropenem. UCx growing Klebsiella ESBL. PICC line already in place. (2) Pressure ulcer of sacral region, stage 4: Code(s): L89.154 - Pressure ulcer of sacral region, stage 4 Status: Acute Assessment and Plan: CT scan shows left parasagittal sacral ulcer with underlying focal distal sacral osteomyelitis. No fevers. No elevated white count. Wound care consulted showing chronic stage IV pressure injury to the sacrum wound bed is pale pink color with gap the coast where the bone. No outward signs or symptoms of infection noted to the wound bed her surrounding tissue. Wound care instructions being followed. Wound culture growing Enterobacter with significant resistance pattern. Continue IV abx for now. (3) Osteomyelitis: Code(s): M86.9 - Osteomyelitis, unspecified Status: Acute Assessment and Plan: As above (4) Depression: Code(s): F32.A - Depression, unspecified Status: Acute Assessment and Plan: Mood is poor. She asked for medications and Celexa started by others. She is sad and frustrated. Do not feel she is actively suicidal but more frustration with her situation. Continue Celexa. Suicide precautions. Crisis evaluation at discharge when location found for her to go. (5) Intractable nausea and vomiting: Code(s): R11.2 - Nausea with vomiting, unspecified Status: Acute Assessment and Plan: No further n/v. Eating mostly 70-100% of meals. [place] related to above Resolved. Follow CT showing prominent amount of fecal material in the rectum and colon. Having diarrhea but suspect leaking around hard stool. Check KUB (6) Normocytic anemia: Code(s): D64.9 - Anemia, unspecified Status: Acute Assessment and Plan: Hemoglobin low but stable in the 9-10 range this admission. Iron 11, TIBC 232 with 5% saturation. Ferritin normal at 119. B12 and folate levels normal. TSH normal. 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 Also with possible neurogenic bladder but has the sensation to void and does not appear to have had urodynamics Frequent turning. Routine skin care. Followup with urology after discharge (8) Neurogenic bladder: Code(s): N31.9 - Neuromuscular dysfunction of bladder, unspecified Status: Acute Assessment and Plan: Requiring chronic ledbetter (9) Type 1 diabetes mellitus: Code(s): E10.9 - Type 1 diabetes mellitus without complications Status: Chronic Assessment and Plan: A1c 6.2%. The patient's blood glucose was reviewed on 01/14 Glucose remains well controlled.
[2024-01-15 12:14] LABS: Glucose Point of Care 151 mg/dl (65-105)
[2024-01-15] MEDS: POTASSIUM/PHOSPHORUS/SODIUM 1.5 GM PACKET 1 PACKET PO (12:56)
[2024-01-15 14:00] VITALS: BP 138/72; PULSE 70; RESP 19; TEMP 36.4; O2SAT 100
--- NOTE | 2024-01-15 14:18 | PCPTNOTE ---
The patient treatment was not able to be completed at this time due to patient out of room testing. Will plan to continue treatment per plan of care.
--- NOTE | 2024-01-15 15:58 | PC.NURSE ---
Changed ledbetter catheter on 01/15/[address] Apple
[2024-01-15 17:00] LABS: Glucose Point of Care 93 mg/dl (65-105)
[2024-01-15 19:37] LABS: Glucose Point of Care 167 mg/dl (65-105)
[2024-01-15] MEDS: traZODone HCL 50 MG TABLET 100 MG PO (20:22)
[2024-01-15] MEDS: MICONAZOLE NITRATE 2% VAGINAL CREAM 45 GM TUBE 1 APPFUL VAGINAL (20:22)
[2024-01-15] MEDS: MELATONIN 5 MG TABLET 10 MG PO (20:23)
[2024-01-15] MEDS: INSULIN GLARGINE (*BKC) 100 UNITS/ML 25 UNITS SUB-Q (20:23)
[2024-01-15] MEDS: ATORVASTATIN 20 MG TABLET PO (20:28)
[2024-01-15 20:48] VITALS: BP 158/70; PULSE 82; RESP 20; TEMP 35.9; O2SAT 98
[2024-01-16] MEDS: MORPHINE SULFATE (*CRX) 2 MG/ML INJ IV PUSH ×2 (01:22→11:35)
[2024-01-16 05:22] VITALS: BP 128/62; PULSE 74; RESP 20; TEMP 36.3; O2SAT 98
[2024-01-16] MEDS: MEROPENEM 1 GM/NS 100 ML 1 GM/100 ML BAG IVPB ×3 (05:34→20:57)
[2024-01-16] MEDS: CENTRAL LINE FLUSH 20 ML IV PUSH (05:35)
[2024-01-16] MEDS: CENTRAL LINE FLUSH 10 ML IV PUSH ×3 (05:35→22:34)
[2024-01-16 06:07] LABS: Alanine Aminotransferase 43 U/L (6-35); Albumin Level 3.1 g/dL (3.5-5.1); Alkaline Phosphatase 97 U/L (38-126); Anion Gap 7 mmol/L (4-12); Aspartate Amino Transferase 38 U/L (14-36); Bilirubin,Total 0.2 mg/dL (0.2-1.3); Blood Urea Nitrogen 21 mg/dL (7-17); Calcium 8.4 mg/dL (8.4-10.2); Carbon Dioxide 23 mmol/L (22-30); Chloride 107 mmol/L (98-107); Estimated CRCL calculation 115 ml/min; Estimated Glomerular Filt Rate > 60; Glucose 124 mg/dL (65-110); Magnesium 1.7 mg/dL (1.6-2.3); Phosphorus 2.4 mg/dL (2.5-4.5); Potassium 4.2 mmol/L (3.4-5.0); Sodium 137 mmol/L (137-145)
[2024-01-16 08:13] LABS: Glucose Point of Care 115 mg/dl (65-105)
[2024-01-16] MEDS: ENOXAPARIN 40 MG/0.4 ML SYRINGE SUB-Q (08:40)
[2024-01-16] MEDS: GABAPENTIN 300 MG CAPSULE 600 MG PO ×3 (08:40→17:59)
[2024-01-16] MEDS: NICOTINE (*PBKC) 21 MG PATCH 1 PATCH TRANSDERM (08:40)
[2024-01-16] MEDS: CITALOPRAM HYDROBROMIDE 10 MG TABLET PO (08:40)
[2024-01-16] MEDS: CYCLOBENZAPRINE HCL 5 MG TABLET PO ×2 (09:40→17:59)
[2024-01-16] MEDS: POTASSIUM/PHOSPHORUS/SODIUM 1.5 GM PACKET 1 PACKET PO (09:41)
[2024-01-16] MEDS: HYDROcodone/acetaminophen (*CRX) 10-325 MG TABLET 1 TAB PO ×3 (09:41→20:56)
[2024-01-16 12:09] LABS: Glucose Point of Care 176 mg/dl (65-105)
[2024-01-16] MEDS: INSULIN ASPART (*BKC) 100 UNITS/ML 10 UNITS SUB-Q (12:40)
[2024-01-16] MEDS: LORazepam (*CRX) 0.5 MG TABLET PO ×2 (12:42→21:17)
[2024-01-16 14:00] VITALS: BP 130/64; PULSE 70; RESP 19; TEMP 36.4; O2SAT 99
[2024-01-16 17:10] LABS: Glucose Point of Care 118 mg/dl (65-105)
--- NOTE | 2024-01-16 17:27 | PM.IMPN ---
Progress Note: A&P Assessment and Plan (1) Urinary tract infection associated with indwelling urethral catheter: Qualifiers: Encounter type: initial encounter Qualified Code(s): T83.511A - Infection and inflammatory reaction due to indwelling urethral catheter, initial encounter; N39.0 - Urinary tract infection, site not specified Code(s): T83.511A - Infection and inflammatory reaction due to indwelling urethral catheter, initial encounter; N39.0 - Urinary tract infection, site not specified Status: Acute Assessment and Plan: Patient presents with GI symptoms. Found to have UTI by UA. UA is consistent with UTI. UCx collected. She has a history of Enterococcus and ESBL Urine test was negative. CT scan showing prominent volume loss and scarring of the left kidney, nonobstructing renal stones, diffuse urinary bladder wall thickening. Ledbetter catheter changed out UCx growing Klebsiella ESBL. PICC line already in place. Rocephin started but change to meropenem. (2) Pressure ulcer of sacral region, stage 4: Code(s): L89.154 - Pressure ulcer of sacral region, stage 4 Status: Acute Assessment and Plan: CT scan shows left parasagittal sacral ulcer with underlying focal distal sacral osteomyelitis. No fevers. No elevated white count. Wound care consulted showing chronic stage IV pressure injury to the sacrum. Wound bed is pale pink color with depth fo towards the bone. No outward signs or symptoms of infection noted to the wound bed or surrounding tissue. Wound care instructions being followed. Wound culture growing Enterobacter with significant resistance pattern but sensitive to meropenem Continue IV abx for now. (3) Osteomyelitis: Code(s): M86.9 - Osteomyelitis, unspecified Status: Acute Assessment and Plan: As above (4) Depression: Code(s): F32.A - Depression, unspecified Status: Acute Assessment and Plan: Mood is poor. She asked for medications and Celexa started by others. She is sad and frustrated. Do not feel she is actively suicidal but more frustration about her situation. Continue Celexa. Suicide precautions. Crisis evaluation performed today and safety contract agreed to and she has follow up with a counselor. (5) Intractable nausea and vomiting: Code(s): R11.2 - Nausea with vomiting, unspecified Status: Acute Assessment and Plan: No further n/v. Eating well [place] related to above Resolved. Follow CT showing prominent amount of fecal material in the rectum and colon. Having diarrhea. KUB showing nonobstructive bowel gas pattern. Miralax stopped. Follow (6) Normocytic anemia: Code(s): D64.9 - Anemia, unspecified Status: Acute Assessment and Plan: Hemoglobin low but stable in the 9-10 range this admission. Iron 11, TIBC 232 with 5% saturation. Ferritin normal at 119. B12 and folate levels normal. TSH normal. 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 Also with possible neurogenic bladder but has the sensation to void and does not appear to have had urodynamics Frequent turning. Routine skin care. Followup with urology after discharge (8) Neurogenic bladder: Code(s): N31.9 - Neuromuscular dysfunction of bladder, unspecified Status: Acute Assessment and Plan: Requiring chronic ledbetter This has been exchanged this admission (9) Type 1 diabetes mellitus: Code(s): E10.9 - Type 1 diabetes mellitus without complications Status: Chronic Assessment and Plan: A1c 6.2%. The pat
[2024-01-16] MEDS: oxyCODONE/ACETAMINOPHEN (*CRX) 5-325 MG TABLET 1 TABLET PO (17:59)
[2024-01-16 20:00] VITALS: PULSE 81; RESP 18; O2SAT 98
[2024-01-16] MEDS: traZODone HCL 50 MG TABLET 100 MG PO (20:55)
[2024-01-16] MEDS: ATORVASTATIN 20 MG TABLET PO (20:56)
[2024-01-16] MEDS: MELATONIN 5 MG TABLET 10 MG PO (20:57)
[2024-01-16] MEDS: MICONAZOLE NITRATE 2% VAGINAL CREAM 45 GM TUBE 1 APPFUL VAGINAL (20:57)
[2024-01-16 21:20] LABS: Glucose Point of Care 189 mg/dl (65-105)
[2024-01-16] MEDS: INSULIN GLARGINE (*BKC) 100 UNITS/ML 25 UNITS SUB-Q (21:20)
[2024-01-16 21:32] VITALS: BP 133/54; PULSE 81; RESP 18; TEMP 36.1; O2SAT 98
[2024-01-17] MEDS: oxyCODONE/ACETAMINOPHEN (*CRX) 5-325 MG TABLET 1 TABLET PO ×3 (00:02→17:11)
[2024-01-17] MEDS: HYDROcodone/acetaminophen (*CRX) 10-325 MG TABLET 1 TAB PO (04:48)
[2024-01-17] MEDS: MEROPENEM 1 GM/NS 100 ML 1 GM/100 ML BAG IVPB ×2 (04:48→14:10)
[2024-01-17] MEDS: CENTRAL LINE FLUSH 10 ML IV PUSH ×2 (04:49→14:27)
[2024-01-17 05:16] VITALS: BP 113/63; PULSE 78; RESP 16; TEMP 36.1; O2SAT 98
[2024-01-17 05:18] LABS: Basophils Percent Auto 0.8 % (0.2-1.2); Eosinophils Absolute Auto 0.2 K/mm3 (0-0.3); Eosinophils Percent Auto 3.7 % (0-4.4); Hematocrit 28.3 % (37.0-47.0); Hemoglobin 8.9 g/dL (12.0-15.0); Immature Granulocyte Absolute 0.03 K/mm3 (0.00-0.031); Immature Granulocyte Percent A 0.6 % (0-0.5); Mean Corpuscular HGB Conc 31.4 g/dl (32-36); Mean Corpuscular Hemoglobin 30.2 pg (26-34); Mean Corpuscular Volume 95.9 fl (80-100); Mean Platelet Volume 10.1 fl (7.4-10.4); Monocytes Absolute Auto 0.4 K/mm3 (0.1-0.6); Monocytes Percent Auto 7.2 % (2.6-8.5); Neutrophils Absolute Auto 2.7 K/mm3 (1.3-6.7); Neutrophils Percent Auto 52.7 % (45.5-73.1); Platelet Count Result 180 k/mm3 (150-375); Red Blood Count 2.95 M/mm3 (4.2-5.4); Red Cell Distribution Width 14.6 % (11.5-14.5); White Blood Count 5.1 K/mm3 (4.5-10.0)
[2024-01-17 05:37] LABS: Alanine Aminotransferase 51 U/L (6-35); Albumin Level 3.2 g/dL (3.5-5.1); Alkaline Phosphatase 96 U/L (38-126); Anion Gap 7 mmol/L (4-12); Aspartate Amino Transferase 44 U/L (14-36); Bilirubin,Total 0.4 mg/dL (0.2-1.3); Blood Urea Nitrogen 22 mg/dL (7-17); Calcium 9.1 mg/dL (8.4-10.2); Carbon Dioxide 22 mmol/L (22-30); Chloride 107 mmol/L (98-107); Estimated CRCL calculation 132 ml/min; Estimated Glomerular Filt Rate > 60; Glucose 101 mg/dL (65-110); Phosphorus 2.8 mg/dL (2.5-4.5); Potassium 4.5 mmol/L (3.4-5.0); Sodium 136 mmol/L (137-145)
[2024-01-17 07:45] LABS: Glucose Point of Care 93 mg/dl (65-105)
[2024-01-17] MEDS: ENOXAPARIN 40 MG/0.4 ML SYRINGE SUB-Q (10:00)
[2024-01-17] MEDS: CYCLOBENZAPRINE HCL 5 MG TABLET PO (10:00)
[2024-01-17] MEDS: GABAPENTIN 300 MG CAPSULE 600 MG PO ×2 (10:00→14:10)
[2024-01-17] MEDS: FERROUS SULFATE 325 MG TABLET DR PO (10:00)
[2024-01-17] MEDS: CITALOPRAM HYDROBROMIDE 10 MG TABLET PO (10:00)
[2024-01-17 11:47] LABS: Acetaminophen < 10 ug/mL (10-30)
[2024-01-17 12:15] LABS: Glucose Point of Care 122 mg/dl (65-105)
[2024-01-17 13:07] LABS: Amphetamine Screen Urine Negative (Negative); Barbiturate Screen Urine Negative (Negative); Benzodiazepines Screen Urine Negative (Negative); Cannabinoid Screen Urine Negative (Negative); Cocaine Screen Urine Negative (Negative); Methadone Screen Urine Negative (Negative); Opiate Screen Urine Positive (Negative); Phencyclidine Screen Urine Negative (Negative)
--- NOTE | 2024-01-17 13:13 | PCNFU ---
Nutrition Follow-Up Complete: Moderate protein calorie malnutrition related to chronic paraplegia, as evidenced by intakes <75% needs >1 month; weight loss 9%/4 months Goal: Adequate PO intake for wound healing support at least 75% meals and supplements Patient is meeting current goal. No new goal. Pt current nutrition is Regular with Wilmer BID and Ensure Compact BID. Last recorded weight is 82.5 kg, no new weight to report. Bowel Motility: +BM reported 01/16 Labs Reviewed: Cr 0.6,BUN 22, Na 136, Hgb 8.9,Hct 28.3 Meds Noted: Lantus, Lovenox, Lipitor. Skin: Stage IV sacrum. Additional Notes: Patient remains on a Regular diet with Wilmer BID and Ensure compact BID. Intake has been 100% of meals. HbA1c 6.2%. Blood sugars WNL. Agree with diet orders. Monitoring intakes, weights, labs, supplement tolerance, plan of care, wound healing Follow up in 5 days
[2024-01-17 15:27] VITALS: BP 156/63; PULSE 67; RESP 16; TEMP 36.8; O2SAT 100
[2024-01-17 17:24] LABS: Glucose Point of Care 82 mg/dl (65-105)
--- NOTE | 2024-01-17 18:29 | PM.DS ---
DS: Admitting Diagnosis Discharge Date January 17, 2024 Admitting Diagnosis Nausea vomiting and diarrhea DS: Discharge Diagnosis Discharge Diagnosis (1) Osteomyelitis: Code(s): M86.9 - Osteomyelitis, unspecified Status: Acute (2) Depression: Code(s): F32.A - Depression, unspecified Status: Acute (3) Urinary tract infection associated with indwelling urethral catheter: Qualifiers: Encounter type: initial encounter Qualified Code(s): T83.511A - Infection and inflammatory reaction due to indwelling urethral catheter, initial encounter; N39.0 - Urinary tract infection, site not specified Code(s): T83.511A - Infection and inflammatory reaction due to indwelling urethral catheter, initial encounter; N39.0 - Urinary tract infection, site not specified Status: Acute (4) Pressure ulcer of sacral region, stage 4: Code(s): L89.154 - Pressure ulcer of sacral region, stage 4 Status: Acute (5) Opioid dependence: Code(s): F11.20 - Opioid dependence, uncomplicated Status: Acute DS: Summary Hospital Course Hospital Course: 43yo female with spinal stroke, AAA, T2DM, neurogenic bladder, chronic indwelling Marcos catheter, chronic decubitus sacral ulcer, patient presents to ED for n/v and diarrhea. She had recent admission and treated for UTI. She was treated for a catheter associated UTI initially with Rocephin, then changed to meropenem. Eventually changed to ertapenem once daily dosing and discharged to detention on 01/17/2024 stable condition. Ertapenem used for the Klebsiella ESBL she received a PICC line. If the Klebsiella pneumoniae only sensitive to imipenem/meropenem. A swab of her sacral ulcer/chronic osteomyelitis growing Enterobacter clocae only sensitive to imipenem Zosyn and meropenem. The once daily ertapenem was prescribed for 6 weeks. She continues to follow-up with wound care outside of the hospital. Advised the patient to follow with primary care and also recommended Infectious Disease to delineate ongoing management of this chronic osteomyelitis. Patient reports her pain is uncontrolled. Prior to admission she was receiving [place]. She did better with oxycodone acetaminophen. Her gabapentin was also changed to Lyrica. Adverse effects, risk and benefits of medications discussed. Also educated the patient on the worsening signs of infection and to advise nursing staff if she experiences these. The patient smokes marijuana prior to admission and in the setting of opioid use advised the patient to avoid marijuana in all other illicit substances. She was in agreement. Please see the following for detail problems and management otherwise: (1) Urinary tract infection associated with indwelling urethral catheter: Qualifiers: Encounter type: initial encounter Qualified Code(s): T83.511A - Infection and inflammatory reaction due to indwelling urethral catheter, initial encounter; N39.0 - Urinary tract infection, site not specified Code(s): T83.511A - Infection and inflammatory reaction due to indwelling urethral catheter, initial encounter; N39.0 - Urinary tract infection, site not specified Status: Acute Assessment and Plan: Patient presents with GI symptoms. Found to have UTI by UA. UA is consistent with UTI. UCx collected. She has a history of Enterococcus and ESBL Urine test was negative. CT scan showing prominent volume loss and scarring of the left kidney, nonobstructing renal stones, diffuse urinary bladder wall thickening. Marcos catheter changed out UCx growing Klebsiella ESBL. PICC line already in place. Rocephin started but change to meropenem. (2) Pressure ulcer of sacral region, stage 4: Code(s): L89.154 - Pressure ulcer of sacral region, stage 4 Status: Acute Assessment and Plan: CT scan shows left parasagittal sacral ulcer with underlying focal distal sacral osteomyelitis. No fever
== END 2024-01-17 19:45 | DRG 698 ==
LOC: ANHED 21:52 → ANH2MED 01-12 02:20
PROVIDERS: Internal Medicine; Admitting Provider Internal Medicine; Emergency Provider Student in an Organized Health Care Education/Training Program; PCP Family Medicine; Visit Provider General Practice
DX: T83.511A Infection and inflammatory reaction due to indwelling urethral catheter, initial encounter (principal); L89.154 Pressure ulcer of sacral region, stage 4; G82.20 Paraplegia, unspecified; Z16.12 Extended spectrum beta lactamase (ESBL) resistance; M86.9 Osteomyelitis, unspecified; N39.0 Urinary tract infection, site not specified; B96.1 Klebsiella pneumoniae [K. pneumoniae] as the cause of diseases classified elsewhere; B96.89 Other specified bacterial agents as the cause of diseases classified elsewhere; D64.9 Anemia, unspecified; E10.42 Type 1 diabetes mellitus with diabetic polyneuropathy; E78.5 Hyperlipidemia, unspecified; F17.210 Nicotine dependence, cigarettes, uncomplicated; F32.A Depression, unspecified; N31.9 Neuromuscular dysfunction of bladder, unspecified; Z86.718 Personal history of other venous thrombosis and embolism; Z95.1 Presence of aortocoronary bypass graft
CPT/HCPCS: 36415; 36569; 74019; 74177; 80053; 80069; 80307; 81001; 81025; 82948; 83036; 83605; 83690; 83735; 84100; 85025; 85027; 87070; 87077; 87086; 87088; 87186; 87205; 96365; 96374; 96375; 97110; 97112; 97161; 97162; 97166; 97530; 97535; 99285; A9270; J0696; J1170; J1650; J1815; J2060; J2185; J2270; J2405; J7030; Q9967

== ENCOUNTER 2024-01-27 22:16 | Inpatient (IN) | payer OTHER, MEDICAID, SELFPAY ==
--- NOTE | ~2024-01-27 | CT_ITS ---
EXAMINATION: CT abdomen pelvis w con DATE: 01/28/2024 00:09 INDICATION: Lower abdominal pain. Nausea and vomiting and diarrhea. Paraplegia. TECHNIQUE: Computed tomography (CT) of the abdomen and pelvis was performed with 100 mL Omnipaque 350 intravenous contrast. Automated exposure control and iterative reconstruction technique were employe d. The dose-length product was 628.63 mGy-cm. COMPARISON: CT abdomen and pelvis 05/13/2024, 11/10/23 FINDINGS: The visualized portions of the lung bases are clear without pneumonia or pleural effusion. The heart size is normal. There is a small pericardial effusion. There is a 9 mm cyst in the liver. T he gallbladder, spleen, and pancreas are normal. There is an 11 mm mass of fat in right adrenal gland , consistent with a myelolipoma. There is a 14 mm mass in left adrenal gland, likely an adenoma in th e absence of known malignancy. There is cortical thinning in right kidney inferior pole with hypoenha ncement, stable from 11/10/23, consistent with infarct. There is a 2 mm stone in right kidney. There i s moderate atrophy of left kidney. There is hypoenhancement in left kidney, stable from 11/10/23, cons istent with infarct. There is a 2 mm stone in left kidney. There is wall thickening of the descending and sigmoid colon and rectum with surrounding fat stranding. There is no significant stenosis of the renal arteries. There are changes of aortobiiliac bypass grafting. There is mild left para-aortic ly mphadenopathy, likely reactive. There is a stent in the [place] left common iliac artery. There is mod erate thoracic spondylosis and mild lumbar spondylosis. There is soft tissue swelling overlying the s acrum. There are erosions of the junction of the sacrum and coccyx without change. IMPRESSION: 1. Colitis involving the descending and sigmoid colon and rectum. 2. Mild left para-aortic lymphadenopathy, likely reactive. 3. Chronic sacrococcygeal osteomyelitis. Reviewed, dictated and finalized at location A.
[2024-01-27 22:17] VITALS: BP 103/57; PULSE 108; RESP 20; TEMP 36.9; O2SAT 100
[2024-01-27 22:53] LABS: BEDSIDEPREGUCG Negative
[2024-01-27 22:58] LABS: Basophils Absolute Auto 0.1 K/mm3 (0.0-0.1); Basophils Percent Auto 0.5 % (0.2-1.2); Eosinophils Absolute Auto 0.1 K/mm3 (0-0.3); Eosinophils Percent Auto 0.5 % (0-4.4); Hematocrit 39.1 % (37.0-47.0); Hemoglobin 12.9 g/dL (12.0-15.0); Immature Granulocyte Absolute 0.08 K/mm3 (0.00-0.031); Immature Granulocyte Percent A 0.5 % (0-0.5); Lymphocytes Absolute Auto 2.03 K/mm3 (0.9-3.2); Lymphocytes Percent Auto 13.6 % (18.3-44.2); Mean Corpuscular Volume 90.9 fl (80-100); Mean Platelet Volume 10.4 fl (7.4-10.4); Monocytes Absolute Auto 0.7 K/mm3 (0.1-0.6); Monocytes Percent Auto 4.3 % (2.6-8.5); Neutrophils Percent Auto 80.6 % (45.5-73.1); Platelet Count Result 279 k/mm3 (150-375); Red Cell Distribution Width 13.2 % (11.5-14.5)
[2024-01-27 23:12] LABS: Alanine Aminotransferase 38 U/L (6-35); Albumin Level 4.5 g/dL (3.5-5.1); Alkaline Phosphatase 127 U/L (38-126); Anion Gap 15 mmol/L (4-12); Aspartate Amino Transferase 34 U/L (14-36); Bilirubin,Total 0.6 mg/dL (0.2-1.3); Blood Urea Nitrogen 20 mg/dL (7-17); Calcium 10.2 mg/dL (8.4-10.2); Carbon Dioxide 20 mmol/L (22-30); Chloride 104 mmol/L (98-107); Estimated CRCL calculation 99 ml/min; Estimated Glomerular Filt Rate > 60; Glucose 174 mg/dL (65-110); Lipase 67 U/L (23-300); Potassium 4.1 mmol/L (3.4-5.0); Sodium 139 mmol/L (137-145)
[2024-01-27 23:16] LABS: Add Urine Microscopic? YES; Appearance Urine Turbid (Clear); Bacteria Urine 4+ /hpf; Bilirubin Urine 1+ (Negative); Blood Urine Negative (Negative); Color Urine Dark Yellow (Yellow); Glucose Urine UA Negative (Negative); Ketones Urine Trace mg/dL (Negative); Leukocyte Esterase Ur 3+ LEU/UL (Negative); Need Manual Microscopic Reviewed; Nitrate Urine Negative (Negative); Protein Urine 1+ mg/dL (Negative); Squamous Epithelial Cell Urine Few /hpf (Few); WBC Urine 51-100 /hpf (0-3); pH Urine 7.5 (5.0-9.0)
[2024-01-27] MEDS: LACTATED RINGERS 1,000 ML 999 ML IV CONT (23:35)
[2024-01-27] MEDS: ONDANSETRON INJ 4 MG/2 ML VIAL IV PUSH (23:35)
[2024-01-27] MEDS: FAMOTIDINE 20 MG/2 ML VIAL IV PUSH (23:35)
[2024-01-28] MEDS: cefTRIAXone 2 GM/NS 100 ML 2 GM/100 ML BAG IVPB (00:57)
[2024-01-28 01:10] VITALS: BP 108/59; PULSE 87; RESP 18; O2SAT 96
[2024-01-28] MEDS: MEROPENEM 1 GM/NS 100 ML 1 GM/100 ML BAG IVPB (02:44)
[2024-01-28] MEDS: VANCOMYCIN HCL 125 MG ORAL CAPSULE PO ×4 (02:44→23:42)
--- NOTE | 2024-01-28 02:50 | ED.ABDPAIN ---
HPI - Abdominal Pain General Chief Complaint: Abdominal Pain Stated Complaint: ABD PAIN, BACK PAIN Time Seen by Provider: 01/27/24 22:50 History of Present Illness HPI narrative: 43F h/o spinal stroke with paraplegia, decubitus ulcers, MDR infections, p/w n/v/d today and abdominal pain. Related Data Home Medications Medication Instructions Recorded Confirmed atorvastatin 20 mg tablet 20 mg PO HS 11/10/23 01/12/24 trazodone 100 mg tablet 100 mg PO HS 11/10/23 01/12/24 melatonin 10 mg tablet 10 mg PO HS 01/12/24 01/12/24 Allergies Allergy/AdvReac Type Severity Reaction Status Date / Time azithromycin Allergy Unknown Hives Verified 01/11/24 20:56 amoxicillin AdvReac Unknown Verified 01/11/24 20:56 Review of Systems Review of Systems: All systems reviewed & are unremarkable except as noted in HPI and below PMFSH Past Medical History Medical History (Updated 01/28/24 @ 02:54 by Roshni Stanford MD) Abnormality of rectum Aortic thrombus Clostridium difficile diarrhea Deep venous thrombosis Diabetic peripheral neuropathy Hyperlipidemia Intractable nausea and vomiting Ischemic colitis Neurogenic bladder Paraplegia Spinal cord stroke Type 1 diabetes mellitus Surgical History Surgical History History of aorto-femoral bypass [facility] Family History Family History Mother Acute myocardial infarction Diabetes mellitus Hypertension Father History of blood clots Social History Social History Social History: Surrogate medical decision maker: Ml Aguilar, mother. Code status: Full code. Smoking packs per day: 1 Smoking cigarettes per day: 20.0 Years smoked: 25 Smoking pack-years: 25.00 Smoking status: Current every day smoker Tobacco type: cigarettes Alcohol intake: former Substance use: former Substance use type: marijuana Last use: 01/01/2024 Do You Feel Safe in your Home?: Yes Lack of Transportation: No Lack of Food: Never True Current Housing: I Have Housing Concerned About Future Housing: No Difficulty Paying Gas/Electric Bills: No Difficulty Paying for Meds: No Currently Unemployed: No Education: High School Diploma/GED Difficulty w/ Childcare or Family Care: No Additional living arrangements comments: Lives with spouse and children in [place]. Spiritual care concerns: No Exam Narrative: EXAMINATION OF ORGAN SYSTEMS/BODY AREAS: Constitutional: Vital signs per nursing GENERAL: Appears very uncomfortable HEAD: Normal with no signs of head trauma. EYES: EOMI, conjunctiva normal ENT: Hearing grossly intact LUNGS: Nonlabored breathing. HEART: [Regular rate and rhythm] ABD: [Soft], [slightly tender to palpation] lower abdomen EXT: Paralyzed lower extremities SKIN: Decubitus ulcer NEURO: [Alert and oriented x 3.] PSYCH: Normal affect Course Vital Signs Vital signs: Vital Signs Temperature 98.5 F 01/27/24 22:17 Pulse Rate 108 H 01/27/24 22:17 Respiratory Rate 20 01/27/24 22:17 Blood Pressure 103/57 L 01/27/24 22:17 Pulse Oximetry 100 01/27/24 22:17 Oxygen Delivery Room Air 01/27/24 22:17 Temperature 98.5 F 01/27/24 22:17 Pulse Rate 87 01/28/24 01:10 Respiratory Rate 18 01/28/24 01:10 Blood Pressure 108/59 L 01/28/24 01:10 Pulse Oximetry 96 01/28/24 01:10 Oxygen Delivery Room Air 01/27/24 22:17 MDM - Abdominal Pain MDM Narrative Medical decision making narrative: Electronic medical record was reviewed. Patient presented to the ED with complaint of [abdominal pain and vomiting and diarrhea]. Vitals [were within acceptable limits]. Physical exam revealed [tenderness to palpation lower abdomen]. Based on the patient's history and physical exam, my differential includes but is not limited to [gastritis, gastroen
[2024-01-28] MEDS: MORPHINE SULFATE (*CRX) 4 MG/ML INJ IV PUSH (03:39)
--- NOTE | 2024-01-28 04:06 | ADMGEN ---
This patient, Jill Villa, was admitted to 3 [facility] Surg Room 319-01. Patient/family oriented to hospital policies and general routines including ID bracelet, bed and alarms, visiting hours, pain management, procedures, bathroom and other care routines, personal items, smoking policy, room service/diet, and visiting hours. Information on how to activate the Rapid Response Team has been discussed. Patient/Family are encouraged to report perceived risks to care and to ask questions if they do not understand what they are told or what they should do.
[2024-01-28 04:15] VITALS: BP 95/53; PULSE 75; RESP 20; TEMP 36.2; O2SAT 98
[2024-01-28 04:22] VITALS: BMI 22.6
[2024-01-28 04:25] LABS: Toxigenic C. Diff POSITIVE (NEGATIVE)
--- NOTE | 2024-01-28 05:40 | PC.NURSE ---
0443: Called Dr. Bear on [employer] with no answer (not on network) and then called Dr. Bear on her cell phone- went right to voicemail and message left asking her to call me about her new admission in 319 and lab result. No return call. 0535: Called Dr. Bear on [employer], no anwer (not on network) then called her on her call phone which went right to voicemail. I then proceeded to have her paged overhead in the hospital. 0537: Received call from Dr. Bear and informed her of POSITIVE C-diff result. Dr. Bear states that Pt. had PO Vancomycin and no new orders received.
[2024-01-28 07:46] VITALS: O2SAT 98
--- NOTE | 2024-01-28 08:27 | PM.IMHP ---
H&P: HPI History of Present Illness Date/Time: 01/28/24 08:27 Chief Complaint: 43 yo female with PMHx significant for spinal stroke, AAA, T2DM, neurogenic bladder, chronic indwelling Marcos catheter, chronic decubitus sacral ulcer, patient presents to ED due to abdominal pain and vomiting and diarrhea. The ED patient was positive for C diff. was started on vancomycin. Patient urinalysis shows leukocyte esterase 3+, nitrites negative. During last admission patient was managed with PICC line and advised to continue ertapenem for 6 weeks. For unknown reason patient was in another hospital and PICC line was removed and ertapenem was discontinued. During examination patient denies any dysuria, vaginal discharge or abdominal pain. We decided not to treat her with more antibiotic and exacerbate her C diff condition. Review of Systems Review of Systems: All systems reviewed & are unremarkable except as noted in HPI and below PMFSH Past Medical History Medical History (Updated 01/28/24 @ 02:54 by Roshni Stanford MD) Abnormality of rectum Aortic thrombus Clostridium difficile diarrhea Deep venous thrombosis Diabetic peripheral neuropathy Hyperlipidemia Intractable nausea and vomiting Ischemic colitis Neurogenic bladder Paraplegia Spinal cord stroke Type 1 diabetes mellitus Surgical History Surgical History History of aorto-femoral bypass [facility] Family History Family History Mother Acute myocardial infarction Diabetes mellitus Hypertension Father History of blood clots Social History Social History Social History: Surrogate medical decision maker: Ml Aguilar, mother. Code status: Full code. Smoking packs per day: 1 Smoking cigarettes per day: 20.0 Years smoked: 25 Smoking pack-years: 25.00 Smoking status: Current every day smoker Tobacco type: cigarettes Second hand tobacco smoke exposure: No Alcohol intake: never Substance use: former Substance use type: marijuana Other substance usage details: daily Last use: 01/27/24 Do You Feel Safe in your Home?: Yes Lack of Transportation: No Lack of Food: Never True Current Housing: I Have Housing Concerned About Future Housing: No Difficulty Paying Gas/Electric Bills: No Difficulty Paying for Meds: No Currently Unemployed: No Education: High School Diploma/GED Difficulty w/ Childcare or Family Care: No Additional living arrangements comments: Lives with spouse and children in [place]. Spiritual care concerns: No Meds Home Medications and Allergies Home Medications Medication Instructions Recorded Confirmed Type atorvastatin 20 mg tablet 20 mg PO HS 11/10/23 01/28/24 History trazodone 100 mg tablet 100 mg PO HS 11/10/23 01/28/24 History insulin glargine 100 unit/mL (3 36 unit (0.36 mL) subcut HS #3 mL 11/21/23 01/28/24 Rx mL) subcutaneous pen (Lantus Solostar U-100 Insulin) insulin lispro 100 unit/mL 10 unit (0.1 mL) subcut AC #15 mL 11/21/23 01/28/24 Rx subcutaneous pen (Humalog KwikPen (U-100) Insulin) melatonin 10 mg tablet 10 mg PO HS 01/12/24 01/28/24 History citalopram 20 mg tablet (Celexa) 10 mg PO QAM #30 tabs 01/17/24 01/28/24 Rx ferrous sulfate 325 mg (65 mg 325 mg PO DAILY #30 tabs 01/17/24 01/28/24 Rx iron) tablet,delayed release miconazole nitrate 2 % vaginal 1 appful vaginal HS #45 grams 01/17/24 01/28/24 Rx cream oxycodone-acetaminophen 5 mg-325 1 tablet PO Q6HR PRN Pain Rated 01/17/24 01/28/24 Rx mg tablet 7-10 #7 tabs polyethylene glycol 3350 17 gram 17 g PO QAM #30 ea 01/17/24 01/28/24 Rx oral powder packet (Miralax) pregabalin 50 mg capsule (Lyrica) 50 mg PO TID #90 caps 01/17/24 01/28/24 Rx Allergies Allergy/AdvReac Type Severity Reaction Status Date / Time azithromycin Allergy
[2024-01-28] MEDS: PREGABALIN (*CRX) 50 MG CAPSULE PO ×3 (09:00→22:03)
[2024-01-28] MEDS: CITALOPRAM HYDROBROMIDE 10 MG TABLET PO (09:00)
[2024-01-28] MEDS: FERROUS SULFATE 325 MG TABLET DR PO (09:00)
--- NOTE | 2024-01-28 09:04 | P.CDI_ITS ---
CDI Query Clarification Request Clarification request - UTI has been documented by ER provider, chronic indwelling ledbetter catheter documented. Please clarify if UTI is: * due to/associated with chronic indwelling ledbetter catheter * not due to/associated with chronic indwelling ledbetter catheter * unable to determine
--- NOTE | 2024-01-28 09:04 | WPDCDIQUERY2 ---
CDI Query Clarification Request Clarification request - UTI has been documented by ER provider, chronic indwelling ledbetter catheter documented. Please clarify if UTI is: due to/associated with chronic indwelling ledbetter catheter not due to/associated with chronic indwelling ledbetter catheter unable to determine
[2024-01-28] MEDS: INSULIN ASPART (*BKC) 100 UNITS/ML 10 UNITS SUB-Q ×2 (09:05→11:56)
[2024-01-28 09:11] LABS: Glucose Point of Care 219 mg/dl (65-105)
[2024-01-28] MEDS: oxyCODONE/ACETAMINOPHEN (*CRX) 5-325 MG TABLET 1 TABLET PO ×3 (09:13→22:03)
[2024-01-28 10:40] VITALS: BMI 22.6
[2024-01-28 11:56] LABS: Glucose Point of Care 162 mg/dl (65-105)
[2024-01-28] MEDS: MORPHINE SULFATE (*CRX) 2 MG/ML INJ IV PUSH ×2 (13:11→18:26)
[2024-01-28 14:00] VITALS: BP 127/76; PULSE 82; RESP 18; TEMP 36.4; O2SAT 100
[2024-01-28 16:28] LABS: Glucose Point of Care 102 mg/dl (65-105)
[2024-01-28 19:50] VITALS: BP 123/62; PULSE 78; RESP 20; TEMP 36.9; O2SAT 99
[2024-01-28 20:28] LABS: Glucose Point of Care 199 mg/dl (65-105)
[2024-01-28] MEDS: MICONAZOLE NITRATE 2% VAGINAL CREAM 45 GM TUBE 1 APPFUL VAGINAL (20:49)
[2024-01-28] MEDS: traZODone HCL 50 MG TABLET 100 MG PO (20:49)
[2024-01-28] MEDS: INSULIN GLARGINE (*BKC) 100 UNITS/ML 36 UNITS SUB-Q (20:50)
[2024-01-28] MEDS: ATORVASTATIN 20 MG TABLET PO (20:50)
[2024-01-28] MEDS: MELATONIN 5 MG TABLET 10 MG PO (20:50)
[2024-01-29] MEDS: HYDROmorphone HCL INJ (*CRX) 1 MG/ML SYR IV PUSH ×5 (00:08→22:26)
[2024-01-29 05:35] VITALS: BP 134/60; PULSE 82; RESP 20; TEMP 35.7; O2SAT 96
[2024-01-29] MEDS: PREGABALIN (*CRX) 50 MG CAPSULE PO ×3 (05:40→21:18)
[2024-01-29] MEDS: VANCOMYCIN HCL 125 MG ORAL CAPSULE PO ×4 (05:42→22:27)
[2024-01-29 07:07] LABS: Hematocrit 30.9 % (37.0-47.0); Hemoglobin 9.5 g/dL (12.0-15.0); Mean Corpuscular HGB Conc 30.7 g/dl (32-36); Mean Corpuscular Hemoglobin 29.5 pg (26-34); Mean Platelet Volume 10.6 fl (7.4-10.4); Platelet Count Result 194 k/mm3 (150-375); Red Blood Count 3.22 M/mm3 (4.2-5.4); Red Cell Distribution Width 13.2 % (11.5-14.5); White Blood Count 5.2 K/mm3 (4.5-10.0)
[2024-01-29 07:20] LABS: Alanine Aminotransferase 34 U/L (6-35); Albumin Level 3.3 g/dL (3.5-5.1); Alkaline Phosphatase 83 U/L (38-126); Anion Gap 8 mmol/L (4-12); Aspartate Amino Transferase 27 U/L (14-36); Bilirubin,Total 0.1 mg/dL (0.2-1.3); Blood Urea Nitrogen 25 mg/dL (7-17); Calcium 9.2 mg/dL (8.4-10.2); Carbon Dioxide 25 mmol/L (22-30); Chloride 106 mmol/L (98-107); Estimated CRCL calculation 89 ml/min; Estimated Glomerular Filt Rate > 60; Glucose 114 mg/dL (65-110); Potassium 4.5 mmol/L (3.4-5.0); Sodium 139 mmol/L (137-145)
[2024-01-29 07:27] LABS: Glucose Point of Care 113 mg/dl (65-105)
[2024-01-29 08:00] VITALS: PULSE 82; RESP 20; O2SAT 96
[2024-01-29] MEDS: CITALOPRAM HYDROBROMIDE 10 MG TABLET PO (09:53)
[2024-01-29] MEDS: ENOXAPARIN 40 MG/0.4 ML SYRINGE SUB-Q (09:53)
[2024-01-29] MEDS: FERROUS SULFATE 325 MG TABLET DR PO (09:53)
[2024-01-29] MEDS: oxyCODONE/ACETAMINOPHEN (*CRX) 5-325 MG TABLET 1 TABLET PO ×3 (09:55→21:18)
[2024-01-29 11:45] LABS: Glucose Point of Care 154 mg/dl (65-105)
[2024-01-29 14:00] VITALS: BP 128/68; PULSE 78; RESP 19; TEMP 36.8; O2SAT 99
--- NOTE | 2024-01-29 15:55 | PM.IMPN ---
Progress Note: A&P Assessment and Plan (1) Colitis: Code(s): K52.9 - Noninfective gastroenteritis and colitis, unspecified Status: Acute (2) UTI (urinary tract infection): Code(s): N39.0 - Urinary tract infection, site not specified Status: Acute Plan Leukocytosis has resolved. Patient's diarrhea is beginning to improve. Continue vancomycin. Per the discussion from admitting hospitalist, patient would like to hold off on further IV antibiotics will need to monitor for any urinary symptoms. If stable in the morning she can be discharged. Patient does not want to go to SNF, she left after 2 days from discharge last admission because she thought that the facility was not clean. She wants to return home. She herself reports presenting to an outside ER after leaving the intermediate a few weeks ago and then she was transferred to [facility] in [place]. There the infectious disease doctor stopped antibiotics but wanted to obtain a bone biopsy. They did not want to do anesthesia and during. the biopsy she had to stop it due to pain. Subsequently, she was referred to Plastic surgery to possibly do a flap surgery. She needs tohave continued follow-up with Infectious Disease in the setting of these recent events and decision to stop antibiotics. She does not want to follow-up with the plastic surgeon associated with [facility] due to the distance. She does follow with Dr. Roman for wound care regularly so will defer referral to them Lovenox. Full code. Subjective Date/time seen: 01/29/24 15:55 Interval history: No acute overnight events. stomach discomfort but believes it is improved. Review of Systems Review of Systems: All systems reviewed & are unremarkable except as noted in HPI and below (Subjective) Exam Const: General: comfortable and no acute distress Eyes: Pupils: Equal, round and reactive pupils present Neck: Neck: supple Resp: Effort & Inspection: normal respiratory effort Auscultation: clear to auscultation bilaterally Cardio: Rate: regular rate Rhythm: regular rhythm GI: GI Palp: Yes Soft to palpation and Yes Tenderness to palpation present (GI) Extrem: General: no edema Objective Data Vital Signs Vital Signs: Vital Signs - 24 hr 01/28/24 20:00 01/28/24 19:50 01/29/24 05:35 Temperature 98.5 F 96.3 F L Pulse Rate 78 82 Respiratory Rate 20 20 Blood Pressure 123/62 134/60 Pulse Oximetry 99 96 Oxygen Delivery Room Air Fraction of Inspired Oxygen 01/29/24 08:00 01/29/24 14:00 Temperature 98.3 F Pulse Rate 82 78 Respiratory Rate 20 19 Blood Pressure 128/68 Pulse Oximetry 96 99 Oxygen Delivery Room Air Fraction of Inspired Oxygen 21 Intake/Output Intake/Output: Intake & Output 01/26/24 01/27/24 01/28/24 01/29/24 23:59 23:59 23:59 23:59 Intake Total 2754 1148 Output Total 1000 700 Balance 1754 448 Meds/Results Medications: Active Medications Generic Name Dose Route Start Last Admin Trade Name Freq PRN Reason Stop Dose Admin Atorvastatin Calcium 20 mg 01/28/24 21:00 01/28/24 20:50 Atorvastatin 20 Mg Tablet PO 20 mg HS SUSANNE Administration Citalopram Hydrobromide 10 mg 01/28/24 09:00 01/29/24 09:53 Citalopram Hydrobromide 10 Mg Tablet PO 10 mg QAM SUSANNE Administration Enoxaparin Sodium 40 mg 01/29/24 09:00 01/29/24 09:53 Enoxaparin 40 Mg/0.4 Ml Syringe SUB-Q 40 mg DAILY SUSANNE Administration Ferrous Sulfate 325 mg 01/28/24 09:00 01/29/24 09:53 Ferrous Sulfate [address] PO 325 mg DAILY SUSANNE Administration Hydromorphone HCl 1 mg 01/28/24 23:51 01/29/24 11:41 Hydromorphone Hcl Inj (*Crx) 1 Mg/Ml Syr IV PUSH 1 mg Q3H PRN Administration Pain Rated 7-10 IF NPO Insulin Aspart 10 units 01/28/24 08:00 01/29/24 12:14 Insulin Aspart (*Bkc) 100 Units/Ml SUB-Q Not Given [facility] Insulin Glargine 36 units 01/28/24 21:00 01/28/24 20:50 Insulin Glar
[2024-01-29] MEDS: MELATONIN 5 MG TABLET 10 MG PO (21:17)
[2024-01-29] MEDS: traZODone HCL 50 MG TABLET 100 MG PO (21:17)
[2024-01-29] MEDS: ATORVASTATIN 20 MG TABLET PO (21:18)
[2024-01-29] MEDS: INSULIN GLARGINE (*BKC) 100 UNITS/ML 36 UNITS SUB-Q (21:18)
[2024-01-29 21:25] LABS: Glucose Point of Care 188 mg/dl (65-105)
[2024-01-29 21:46] VITALS: BP 134/60; PULSE 75; RESP 16; TEMP 36.8; O2SAT 100
[2024-01-30] MEDS: HYDROmorphone HCL INJ (*CRX) 1 MG/ML SYR IV PUSH ×7 (02:02→21:18)
[2024-01-30] MEDS: VANCOMYCIN HCL 125 MG ORAL CAPSULE PO ×3 (04:52→17:20)
[2024-01-30] MEDS: PREGABALIN (*CRX) 50 MG CAPSULE PO ×3 (04:52→21:07)
[2024-01-30 06:00] VITALS: BP 121/56; PULSE 95; RESP 16; TEMP 36.3; O2SAT 94
[2024-01-30 08:00] VITALS: RESP 16; O2SAT 94
[2024-01-30 08:27] LABS: Glucose Point of Care 133 mg/dl (65-105)
[2024-01-30] MEDS: ENOXAPARIN 40 MG/0.4 ML SYRINGE SUB-Q (08:28)
[2024-01-30] MEDS: CITALOPRAM HYDROBROMIDE 10 MG TABLET PO (08:28)
--- NOTE | 2024-01-30 09:55 | PCPTNOTE ---
Attempted PT evaluation, pt refused stating she has been up all night with diarrhea. Pt request therapist does NOT return today, but maybe tomorrow. RN aware. Will follow.
--- NOTE | 2024-01-30 10:54 | PCOTNOTE ---
Per PT, pt is currently refusing to participate today, despite encouragement, stating she had a bad night. Will continue to follow for OT evaluation.
[2024-01-30 11:50] LABS: Glucose Point of Care 153 mg/dl (65-105)
[2024-01-30] MEDS: INSULIN ASPART (*BKC) 100 UNITS/ML 10 UNITS SUB-Q (12:16)
--- NOTE | 2024-01-30 12:22 | PM.IMPN ---
Progress Note: A&P Assessment and Plan (1) Colitis: Code(s): K52.9 - Noninfective gastroenteritis and colitis, unspecified Status: Acute (2) UTI (urinary tract infection): Code(s): N39.0 - Urinary tract infection, site not specified Status: Acute Plan Leukocytosis has resolved. Patient's diarrhea is beginning to improve. Continue vancomycin. Per the discussion from admitting hospitalist, patient would like to hold off on further IV antibiotics will need to monitor for any urinary symptoms. If stable in the morning she can be discharged. Patient does not want to go to SNF, she left after 2 days from discharge last admission because she thought that the facility was not clean. She wants to return home. She herself reports presenting to an outside ER after leaving the [facility] a few weeks ago and then she was transferred to [facility] in [place]. There the infectious disease doctor stopped antibiotics but wanted to obtain a bone biopsy. They did not want to do anesthesia and during. the biopsy she had to stop it due to pain. Subsequently, she was referred to Plastic surgery to possibly do a flap surgery. She needs to have continued follow-up with Infectious Disease in the setting of these recent events and decision to stop antibiotics. She does not want to follow-up with the plastic surgeon associated with [facility] due to the distance. She does follow with Dr. Roman for wound care regularly so will defer referral to them 01/30/2024: Patient reports multiple bowel movements she does not think she should go home. She cannot quantify the bowel movements. She reports severe abdominal pain. Nurse reports the bowel movements have been formed but loose and not have the toxic smell of Clostridium difficile. Should also note, the patient does request pain meds very aggressively as previously admissions. Continue vancomycin for now, continue to follow her symptoms. Will check a procalcitonin and CBC with differential tomorrow. If she is stable she can go home. Her coordinators arranging but patient is refusing [facility] facility. Sonja. Full code. Subjective Date/time seen: 01/30/24 12:22 Interval history: Patient reports multiple bowel movements which were very loose. She cannot quantify. She reports severe abdominal pain as well. Review of Systems Review of Systems: All systems reviewed & are unremarkable except as noted in HPI and below (Subjective) Exam Const: General: comfortable and no acute distress Eyes: Pupils: Equal, round and reactive pupils present Neck: Neck: supple Resp: Effort & Inspection: normal respiratory effort Auscultation: clear to auscultation bilaterally Cardio: Rate: regular rate Rhythm: regular rhythm GI: GI Palp: Yes Soft to palpation and Yes Tenderness to palpation present (GI) Extrem: General: no edema Objective Data Vital Signs Vital Signs: Vital Signs - 24 hr 01/29/24 14:00 01/29/24 20:00 01/29/24 21:46 Temperature 98.3 F 98.2 F Pulse Rate 78 75 Respiratory Rate 19 16 Blood Pressure 128/68 134/60 Pulse Oximetry 99 100 Oxygen Delivery Room Air 01/30/24 06:00 01/30/24 08:00 Temperature 97.3 F L Pulse Rate 95 Respiratory Rate 16 16 Blood Pressure 121/56 L Pulse Oximetry 94 94 Oxygen Delivery Room Air Intake/Output Intake/Output: Intake & Output 01/27/24 01/28/24 01/29/24 01/30/24 23:59 23:59 23:59 23:59 Intake Total 2754 1508 640 Output Total 1000 2200 200 Balance 1754 -692 440 Meds/Results Medications: Active Medications Generic Name Dose Route Start Last Admin Trade Name Freq PRN Reason Stop Dose Admin Atorvastatin Calcium 20 mg 01/28/24 21:00 01/29/24 21:18 Atorvastatin 20 Mg Tablet PO 20 mg HS SUSANNE Administration Citalopram Hydrobromide 10 mg 01/28/24 09:00 01/30/24 08:28 Citalopram Hydrobromide 10 Mg Tablet PO 10 mg QAM SUSANNE Administration Enoxaparin Sod
[2024-01-30 14:20] VITALS: BP 117/64; PULSE 82; RESP 16; TEMP 36.7; O2SAT 98
--- NOTE | 2024-01-30 14:27 | P.CDI_ITS ---
Do not agree CDI Query Clarification Request Risk Factors: chronic ledbetter Clinical Indicators:WBC on 01/26 15.2, positive urine culture 01/28. Treatment: none Sepsis has been documented by the ER Provider, if you agree with this diagnosis please add to your problem list. Below are the CDC definitions, please clarify the appropriate diagnosis for your patients clinical presentation and severity of illness. * Septicemia: Systemic disease (sepsis) associated with positive blood cultures. * Sepsis: An infection-induced syndrome without organ dysfunction. * Severe Sepsis: Sepsis with associated acute organ dysfunction. * Septic Shock: Severe sepsis in which the cardiovascular system begins to fail, blood pressure drops, and vital organs are deprived of adequate blood supply.
[2024-01-30 17:01] LABS: Glucose Point of Care 100 mg/dl (65-105)
[2024-01-30] MEDS: oxyCODONE/ACETAMINOPHEN (*CRX) 5-325 MG TABLET 1 TABLET PO (17:19)
[2024-01-30 20:48] LABS: Glucose Point of Care 158 mg/dl (65-105)
[2024-01-30] MEDS: traZODone HCL 50 MG TABLET 100 MG PO (21:07)
[2024-01-30] MEDS: ATORVASTATIN 20 MG TABLET PO (21:07)
[2024-01-30] MEDS: MELATONIN 5 MG TABLET 10 MG PO (21:08)
[2024-01-30] MEDS: INSULIN GLARGINE (*BKC) 100 UNITS/ML 36 UNITS SUB-Q (21:29)
[2024-01-30 21:32] VITALS: BP 130/62; PULSE 72; RESP 13; TEMP 36.6; O2SAT 100
[2024-01-31] MEDS: HYDROmorphone HCL INJ (*CRX) 1 MG/ML SYR IV PUSH ×5 (00:36→14:11)
[2024-01-31] MEDS: VANCOMYCIN HCL 125 MG ORAL CAPSULE PO ×3 (00:36→12:51)
[2024-01-31] MEDS: oxyCODONE/ACETAMINOPHEN (*CRX) 5-325 MG TABLET 1 TABLET PO ×2 (05:37→16:12)
[2024-01-31] MEDS: PREGABALIN (*CRX) 50 MG CAPSULE PO ×2 (05:37→14:11)
[2024-01-31 05:53] VITALS: BP 102/52; PULSE 64; RESP 13; TEMP 36.2; O2SAT 98
[2024-01-31 06:30] LABS: Basophils Absolute Auto 0.1 K/mm3 (0.0-0.1); Basophils Percent Auto 0.9 % (0.2-1.2); Eosinophils Absolute Auto 0.2 K/mm3 (0-0.3); Eosinophils Percent Auto 3.4 % (0-4.4); Hematocrit 29.4 % (37.0-47.0); Hemoglobin 9.3 g/dL (12.0-15.0); Immature Granulocyte Absolute 0.07 K/mm3 (0.00-0.031); Immature Granulocyte Percent A 1.3 % (0-0.5); Lymphocytes Absolute Auto 2.18 K/mm3 (0.9-3.2); Lymphocytes Percent Auto 39.5 % (18.3-44.2); Mean Corpuscular HGB Conc 31.6 g/dl (32-36); Mean Corpuscular Volume 94.8 fl (80-100); Mean Platelet Volume 10.2 fl (7.4-10.4); Monocytes Absolute Auto 0.4 K/mm3 (0.1-0.6); Monocytes Percent Auto 7.4 % (2.6-8.5); Neutrophils Absolute Auto 2.6 K/mm3 (1.3-6.7); Neutrophils Percent Auto 47.5 % (45.5-73.1); Platelet Count Result 186 k/mm3 (150-375); Red Cell Distribution Width 13.4 % (11.5-14.5); White Blood Count 5.5 K/mm3 (4.5-10.0)
[2024-01-31 06:47] LABS: Alanine Aminotransferase 76 U/L (6-35); Albumin Level 3.3 g/dL (3.5-5.1); Alkaline Phosphatase 85 U/L (38-126); Anion Gap 5 mmol/L (4-12); Aspartate Amino Transferase 53 U/L (14-36); Bilirubin,Total 0.1 mg/dL (0.2-1.3); Blood Urea Nitrogen 21 mg/dL (7-17); Calcium 9.2 mg/dL (8.4-10.2); Carbon Dioxide 26 mmol/L (22-30); Chloride 105 mmol/L (98-107); Estimated CRCL calculation 89 ml/min; Estimated Glomerular Filt Rate > 60; Glucose 110 mg/dL (65-110); Magnesium 1.8 mg/dL (1.6-2.3); Potassium 4.6 mmol/L (3.4-5.0); Sodium 136 mmol/L (137-145)
[2024-01-31 06:59] LABS: Procalcitonin 3.3 ng/mL
[2024-01-31 07:57] LABS: Glucose Point of Care 101 mg/dl (65-105)
[2024-01-31 08:00] VITALS: PULSE 64; RESP 13; O2SAT 98
[2024-01-31] MEDS: CITALOPRAM HYDROBROMIDE 10 MG TABLET PO (09:17)
[2024-01-31] MEDS: FERROUS SULFATE 325 MG TABLET DR PO (09:17)
--- NOTE | 2024-01-31 09:44 | PM.DS ---
DS: Admitting Diagnosis Discharge Date January 31, 2024 Admitting Diagnosis Abdominal pain, nausea/vomiting, diarrhea DS: Discharge Diagnosis Discharge Diagnosis (1) Transaminitis: Code(s): R74.01 - Elevation of levels of liver transaminase levels Status: Acute (2) Colitis: Code(s): K52.9 - Noninfective gastroenteritis and colitis, unspecified Status: Acute DS: Summary Hospital Course Hospital Course: H&P via Francine Mahmood MD 43 yo female with PMHx significant for spinal stroke, AAA, T2DM, neurogenic bladder, chronic indwelling Marcos catheter, chronic decubitus sacral ulcer, patient presents to ED due to abdominal pain and vomiting and diarrhea. The ED patient was positive for C diff. was started on vancomycin. Patient urinalysis shows leukocyte esterase 3+, nitrites negative. During last admission patient was managed with PICC line and advised to continue ertapenem for 6 weeks. For unknown reason patient was in another hospital and PICC line was removed and ertapenem was discontinued. During examination patient denies any dysuria, vaginal discharge or abdominal pain. We decided not to treat her with more antibiotic and exacerbate her C diff condition. ----- Follow-up history includes: Patient was discharged on 01/17/2024 to [facility] A few days after the patient signed herself out. She then presented to [facility] emergency department. There she was admitted, she was seen by infectious disease consultants and antibiotics were stopped. A bone biopsy was attempted but the patient had the procedure stopped due to pain. She was discharged with follow-up to plastic surgery for possible wound flap. Shortly after returning home she developed abdominal pain, vomiting and diarrhea. As of 01/31/2024 her abdominal pain, vomiting, diarrhea have resolved. She is having normal bowel movements and will be discharged in stable condition back to home on another 10 days of vancomycin to 125 mg p.o. q.6 hours. She is advised to be discharged to [facility]dc but she continues to refuse, she wants to be home. Risks versus benefits discussed, as well as risks vs benefits of medications. For her decubitus ulcer/neuropathic pain she will be prescribed a short course of pregabalin and oxycodone again. [facility] reviewed with [facility], last prescriptions were for pregabalin and oxycodone on 01/17/2024. These were the prescriptions made when she was discharged by myself, was not provided these medications as she signed herself out from the [facility] facility. Advised the patient to follow with PCP on her multiple medical conditions and use of narcotics. She agrees to not use illicit drugs otherwise. She has follow-up with Infectious Disease and advised her would be prudent to continue follow-up. She follows up with Dr. Roman for wound care and also has a referral for Plastic surgery. CMP ordered for 3 days due to mildly elevated LFTs, could be due to pregabalin/trazodone use and this will be followed in the outpatient setting. She was full code. Time Spent with Patient Time attestation: Total time spent providing and/or coordinating discharge services: Time spent: Greater than 30 minutes Exam Const: General: comfortable and no acute distress Eyes: Pupils: Equal, round and reactive pupils present Neck: Neck: supple Resp: Effort & Inspection: normal respiratory effort Auscultation: clear to auscultation bilaterally Cardio: Rate: regular rate Rhythm: regular rhythm GI: GI Palp: Yes Soft to palpation and No Tenderness to palpation present (GI) Extrem: General: no edema DS: Data Data Completed and Pending Labs on day of discharge: Labs from last 24 hours 01/31/24 01/31/24 01/30/24 07:54 06:23 20:44 WBC 5.5 RBC 3.10 L Hgb 9.3 L Hct 29.4 L MCV 94.8 MCH 30.0 MCHC 31.6 L RDW 13.4 Plt Count 186 MPV 10.2 Immature Gran % (Auto) 1.3 H Neut % (Au
--- NOTE | 2024-01-31 10:01 | PCOTNOTE ---
Pt reports she is discharging to home today and that she does not want or need therapy at this time. Will d/c OT orders. Please re-order should status change.
--- NOTE | 2024-01-31 10:08 | PCPTNOTE ---
Pt reports she is discharging to home today and that she does not want or need therapy at this time. RN aware.
[2024-01-31 11:54] LABS: Glucose Point of Care 153 mg/dl (65-105)
--- NOTE | 2024-02-01 18:16 | PC.NURSE ---
patient called with questions regarding her medications upon discharge. answered all questions.
--- NOTE | 2024-02-04 12:21 | PC.NURSE ---
Patient called with questions regarding discharging medications. Discharging hospitalist made aware that Lyrica prescription was transmitted to the wrong pharmacy. Patient requesting pain medication. Patient educated to call PCP for further medical needs since she is no longer a patient under our services. Patient voiced understanding and noted has a follow up appointment with PCP this Saturday.
== END 2024-01-31 16:20 | disposition home or self-care (01) | DRG 371 ==
LOC: ANHED 01-28 02:54 → ANH3MEDSUR 01-28 03:04
PROVIDERS: General Practice; Admitting Provider Internal Medicine; Emergency Provider Emergency Medicine; PCP Family Medicine; Visit Provider General Practice
DX: A04.72 Enterocolitis due to Clostridium difficile, not specified as recurrent (principal); L89.154 Pressure ulcer of sacral region, stage 4; G82.20 Paraplegia, unspecified; N39.0 Urinary tract infection, site not specified; F11.20 Opioid dependence, uncomplicated; M86.9 Osteomyelitis, unspecified; E78.5 Hyperlipidemia, unspecified; E10.42 Type 1 diabetes mellitus with diabetic polyneuropathy; F17.210 Nicotine dependence, cigarettes, uncomplicated; F32.A Depression, unspecified; G89.29 Other chronic pain; N31.9 Neuromuscular dysfunction of bladder, unspecified; R74.01 Elevation of levels of liver transaminase levels; Z86.718 Personal history of other venous thrombosis and embolism
CPT/HCPCS: 36415; 74177; 80053; 81001; 81025; 82948; 83690; 83735; 84145; 85025; 85027; 87077; 87086; 87088; 87186; 87493; 96361; 96365; 96374; 96375; 99285; A9270; J0696; J1170; J1650; J1815; J2185; J2270; J2405; J7120; Q9967

== ENCOUNTER 2024-02-09 23:41 | Inpatient (IN) | payer OTHER, MEDICAID, SELFPAY ==
--- NOTE | ~2024-02-09 | NM_ITS ---
EXAMINATION: NM bone 3 phase DATE: 02/13/2024 16:00 INDICATION: Sacrococcygeal wound concerning for ostomy myelitis TECHNIQUE: 22.5 mCi Tc-99m HDP by intravenous route. Scintigrams of the pelvis were obtained in bao ographic, blood pool, and delayed phases. COMPARISON: CT studies dated 01/27/[address] studies between 11/10/2023 and 01/27/2024 FINDINGS: There is increased uptake at the sacrococcygeal junction on the delayed posterior imaging. Minimal in creased uptake in this region on the angiographic phase and mild uptake in this region on the immedia te blood pool images. Findings consistent with osteomyelitis. As noted on the most recent CT study on 01/27/2024 there is erosion of the bones at either side of the sacrococcygeal junction which appears to have occurred between the imaging on 11/27/2023 and 01/02/2024. No significant progression between and 01/27/2024. IMPRESSION: 1. Chronic osteomyelitis at the sacrococcygeal junction. Reviewed, dictated and finalized at location A.
--- NOTE | ~2024-02-09 | US_ITS ---
Duplex Sonography of the bilateral lower extremities: Indication: Pain Sagittal and transverse B-mode images as well as color-flow imaging were performed on the right and l eft femoral and popliteal veins. B-mode examination was done without and with compression in the tra nsverse plane. There is good visualization of the bilateral common femoral, proximal profunda femora l, superficial femoral, greater saphenous, and popliteal veins. Normal flow was seen on color-flow im aging. Normal compressibility was demonstrated. Visualized calf veins are also patent. Impression: No evidence of deep vein thrombosis involving either lower extremity. Reviewed, dictated and finalized at location M. Impression: No evidence of deep vein thrombosis involving either lower extremit y.
[2024-02-09 23:43] VITALS: BP 151/81; PULSE 90; RESP 15; TEMP 36.8; O2SAT 97
[2024-02-10] VITALS (11 sets, daily range): BP systolic 111–134; BP diastolic 59–79; PULSE 62–92; RESP 16–20; TEMP 36.3–36.4; O2SAT 97–100; BMI 23.5
[2024-02-10 02:03] LABS: Basophils Percent Auto 0.6 % (0.2-1.2); Eosinophils Absolute Auto 0.1 K/mm3 (0-0.3); Eosinophils Percent Auto 2.1 % (0-4.4); Hematocrit 31.1 % (37.0-47.0); Hemoglobin 10.2 g/dL (12.0-15.0); Immature Granulocyte Absolute 0.03 K/mm3 (0.00-0.031); Immature Granulocyte Percent A 0.4 % (0-0.5); Lymphocytes Absolute Auto 2.45 K/mm3 (0.9-3.2); Lymphocytes Percent Auto 36.6 % (18.3-44.2); Mean Corpuscular HGB Conc 32.8 g/dl (32-36); Mean Corpuscular Volume 91.5 fl (80-100); Mean Platelet Volume 10.1 fl (7.4-10.4); Monocytes Absolute Auto 0.4 K/mm3 (0.1-0.6); Monocytes Percent Auto 5.4 % (2.6-8.5); Neutrophils Absolute Auto 3.7 K/mm3 (1.3-6.7); Neutrophils Percent Auto 54.9 % (45.5-73.1); Platelet Count Result 232 k/mm3 (150-375); Red Cell Distribution Width 14.3 % (11.5-14.5); White Blood Count 6.7 K/mm3 (4.5-10.0)
[2024-02-10 02:16] LABS: Alanine Aminotransferase 63 U/L (6-35); Albumin Level 3.9 g/dL (3.5-5.1); Alkaline Phosphatase 96 U/L (38-126); Anion Gap 11 mmol/L (4-12); Aspartate Amino Transferase 58 U/L (14-36); Bilirubin,Total 0.2 mg/dL (0.2-1.3); Blood Urea Nitrogen 22 mg/dL (7-17); Calcium 9.6 mg/dL (8.4-10.2); Carbon Dioxide 23 mmol/L (22-30); Chloride 103 mmol/L (98-107); Estimated CRCL calculation 99 ml/min; Estimated Glomerular Filt Rate > 60; Glucose 186 mg/dL (65-110); Lipase 106 U/L (23-300); Potassium 4.1 mmol/L (3.4-5.0); Sodium 137 mmol/L (137-145)
[2024-02-10] MEDS: ONDANSETRON INJ 4 MG/2 ML VIAL IV PUSH ×2 (02:25→20:56)
[2024-02-10] MEDS: MORPHINE SULFATE (*CRX) 2 MG/ML INJ IV PUSH (02:25)
[2024-02-10 02:38] LABS: Influenza A QL RT-PCR Negative (Negative); Influenza B QL RT-PCR Negative (Negative); SARS-CoV-2 RNA PCR Positive (Negative)
[2024-02-10 02:40] LABS: SPREG INTERNAL CONTROL Positive; Serum Qual hCG Negative
[2024-02-10 02:55] LABS: Add Urine Microscopic? YES; Appearance Urine Cloudy (Clear); Bacteria Urine 3+ /hpf; Bilirubin Urine Negative (Negative); Blood Urine Negative (Negative); Color Urine Yellow (Yellow); Glucose Urine UA Negative (Negative); Ketones Urine Negative (Negative); Leukocyte Esterase Ur 2+ LEU/UL (Negative); Need Manual Microscopic Reviewed; Nitrate Urine Positive (Negative); Protein Urine 1+ mg/dL (Negative); RBC Urine 0-2 /hpf (0-2); Specific Grav Ur 1.021 (1.001-1.035); Squamous Epithelial Cell Urine Few /hpf (Few); Urobilinogen Urine 0.2 mg/dL (<2.0); WBC Urine 51-100 /hpf (0-3); pH Urine 6.5 (5.0-9.0)
--- NOTE | 2024-02-10 03:58 | ED.ABDPAIN ---
HPI - Abdominal Pain General Chief Complaint: Abdominal Pain Stated Complaint: abd pain/R leg pain Time Seen by Provider: 02/09/24 23:51 History of Present Illness HPI narrative: Patient is a 43-year-old female who presents to the emergency department this evening complaining of lower abdominal/suprapubic pain for the past 2 days. Denies any nausea, vomiting, or diarrhea. 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 patient states that when she gets these UTIs the only antibiotic she responds to is meropenem. Patient states that this feels like another UTI. Denies any fevers or chills at home. No additional symptoms or concerns at this time. 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 States that the degree of necrosis has been the same since May. Related Data Home Medications Medication Instructions Recorded Confirmed atorvastatin 20 mg tablet 20 mg PO HS 11/10/23 02/06/24 trazodone 100 mg tablet 100 mg PO HS 11/10/23 02/06/24 melatonin 10 mg tablet 10 mg PO HS 01/12/24 02/06/24 Allergies Allergy/AdvReac Type Severity Reaction Status Date / Time azithromycin Allergy Unknown Hives Verified 02/09/24 23:55 amoxicillin AdvReac Unknown Verified 02/09/24 23:55 Review of Systems Review of Systems: All systems are reviewed and are negative unless stated otherwise in the HPI. [facility] Past Medical History Medical History Abnormality of rectum Aortic thrombus Clostridium difficile diarrhea Deep venous thrombosis Diabetic peripheral neuropathy Hyperlipidemia Intractable nausea and vomiting Ischemic colitis Neurogenic bladder Paraplegia Spinal cord stroke Type 1 diabetes mellitus Surgical History Surgical History History of aorto-femoral bypass [facility] Family History Family History Mother Acute myocardial infarction Diabetes mellitus Hypertension Father History of blood clots Social History Social History Social History: Surrogate medical decision maker: Ml Aguilar, . Code status: Full code. Smoking packs per day: 1 Smoking cigarettes per day: 20.0 Years smoked: 25 Smoking pack-years: 25.00 Smoking status: Current every day smoker Tobacco type: cigarettes Second hand tobacco smoke exposure: No Alcohol intake: never Substance use: former Substance use type: marijuana Other substance usage details: daily Last use: 01/27/24 Do You Feel Safe in your Home?: Yes Lack of Transportation: No Lack of Food: Never True Current Housing: I Have Housing Concerned About Future Housing: No Difficulty Paying Gas/Electric Bills: No Difficulty Paying for Meds: No Currently Unemployed: No Education: High School Diploma/GED Difficulty w/ Childcare or Family Care: No Additional living arrangements comments: Lives with spouse and children in [place]. Spiritual care concerns: No Exam Narrative: General: Alert, awake, afebrile, in no acute distress. HEENT: PERRL, no rhinorrhea, no post nasal drip, oropharynx clear. Cardiovascular: Regular rate and rhythm, no murmurs, rubs or gallops, no peripheral edema. Respiratory: Clear to auscultation bilaterally, no tachypnea, no wheezing, no rhonchi, no rubs, no respiratory distress. Abdomen: Soft, nontender, nondistended, no rebound, no guarding, no peritoneal signs.
[2024-02-10 04:15] LABS: Creatine Kinase 32 U/L (30-135)
[2024-02-10] MEDS: MEROPENEM 500 MG/NS 100 ML 500 MG/100 ML BAG 200 MG IVPB ×2 (04:25→11:52)
[2024-02-10] MEDS: VANCOMYCIN 2,000 MG/NS 500 ML BAG 250 MG IVPB (05:49)
--- NOTE | 2024-02-10 06:01 | ADMGEN ---
This patient, Jill Villa, was admitted to Medical Room 250-01. Patient/family oriented to hospital policies and general routines including ID bracelet, bed and alarms, visiting hours, pain management, procedures, bathroom and other care routines, personal items, smoking policy, room service/diet, and visiting hours. Information on how to activate the Rapid Response Team has been discussed. Patient/Family are encouraged to report perceived risks to care and to ask questions if they do not understand what they are told or what they should do.
[2024-02-10] MEDS: HYDROmorphone HCL INJ (*CRX) 1 MG/ML SYR IV PUSH ×6 (06:19→21:54)
[2024-02-10 09:19] LABS: Glucose Point of Care 126 mg/dl (65-105)
[2024-02-10] MEDS: CITALOPRAM HYDROBROMIDE 10 MG TABLET PO (09:32)
[2024-02-10] MEDS: ASPIRIN 81 MG CHEWABLE TABLET PO (09:32)
[2024-02-10 11:59] LABS: Glucose Point of Care 158 mg/dl (65-105)
[2024-02-10] MEDS: INSULIN ASPART (*BKC) 100 UNITS/ML SUB-Q (12:13)
--- NOTE | 2024-02-10 12:18 | PM.IMHP ---
H&P: HPI History of Present Illness Date/Time: 02/10/24 12:18 Chief Complaint: abdominal pain Narrative: 43-year-old female who presents to the emergency department complaining of lower abdominal/suprapubic pain for the past 2 days. Denies any nausea, vomiting, or diarrhea. 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 patient states that when she gets these UTIs the only antibiotic she responds to is meropenem. Patient states that this feels like another UTI. Denies any fevers or chills at home. No additional symptoms or concerns at this time. 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 States that the degree of necrosis has been the same since May. Review of Systems Review of Systems: All systems reviewed & are unremarkable except as noted in HPI and below PMFSH Past Medical History Medical History Abnormality of rectum Aortic thrombus Clostridium difficile diarrhea Deep venous thrombosis Diabetic peripheral neuropathy Hyperlipidemia Intractable nausea and vomiting Ischemic colitis Neurogenic bladder Paraplegia Spinal cord stroke Type 1 diabetes mellitus Surgical History Surgical History History of aorto-femoral bypass [facility] Family History Family History Mother Acute myocardial infarction Diabetes mellitus Hypertension Father History of blood clots Social History Social History Social History: Surrogate medical decision maker: Ml Aguilar, mother. Code status: Full code. Smoking packs per day: 1 Smoking cigarettes per day: 20.0 Years smoked: 25 Smoking pack-years: 25.00 Smoking status: Current every day smoker Tobacco type: cigarettes Second hand tobacco smoke exposure: No Alcohol intake: never Substance use: former Substance use type: marijuana Other substance usage details: daily Last use: 02/09/24 Do You Feel Safe in your Home?: Yes Lack of Transportation: No Lack of Food: Never True Current Housing: I Have Housing Concerned About Future Housing: No Difficulty Paying Gas/Electric Bills: No Difficulty Paying for Meds: No Currently Unemployed: No Education: High School Diploma/GED Difficulty w/ Childcare or Family Care: No Additional living arrangements comments: Lives with spouse and children in [place]. Spiritual care concerns: No Meds Home Medications and Allergies Home Medications Medication Instructions Recorded Confirmed Type atorvastatin 20 mg tablet 20 mg PO HS 11/10/23 02/10/24 History trazodone 100 mg tablet 100 mg PO HS 11/10/23 02/10/24 History insulin glargine 100 unit/mL (3 36 unit (0.36 mL) subcut HS #3 mL 11/21/23 02/10/24 Rx mL) subcutaneous pen (Lantus Solostar U-100 Insulin) insulin lispro 100 unit/mL 10 unit (0.1 mL) subcut AC #15 mL 11/21/23 02/10/24 Rx subcutaneous pen (Humalog KwikPen (U-100) Insulin) melatonin 10 mg tablet 10 mg PO HS 01/12/24 02/10/24 History citalopram 20 mg tablet (Celexa) 10 mg PO QAM #30 tabs 01/17/24 02/10/24 Rx polyethylene glycol 3350 17 gram 17 g PO QAM #30 ea 01/17/24 02/10/24 Rx oral powder packet (Miralax) aspirin 81 mg tablet 81 mg PO DAILY 02/10/24 02/10/24 History Allergies Allergy/AdvReac Type Severity Reaction Status Date / Time azithromycin Allergy Unknown Hives Verified 02/10/24 05:42 amoxicillin AdvReac Unknown
[2024-02-10] MEDS: HEPARIN SODIUM 5,000 UNITS/ML VIAL 5000 UNITS SUB-Q ×2 (13:59→21:55)
[2024-02-10 17:19] LABS: Glucose Point of Care 99 mg/dl (65-105)
[2024-02-10 17:56] LABS: Glucose Point of Care 120 mg/dl (65-105)
[2024-02-10] MEDS: MEROPENEM 1 GM/NS 100 ML 1 GM/100 ML BAG IVPB (20:13)
[2024-02-10] MEDS: MELATONIN 5 MG TABLET 10 MG PO (20:56)
[2024-02-10] MEDS: traZODone HCL 50 MG TABLET 100 MG PO (20:56)
[2024-02-10] MEDS: ATORVASTATIN 20 MG TABLET PO (20:57)
[2024-02-10 21:26] LABS: Glucose Point of Care 116 mg/dl (65-105)
[2024-02-10] MEDS: INSULIN GLARGINE (*BKC) 100 UNITS/ML 10 UNITS SUB-Q (21:55)
[2024-02-11] MEDS: HYDROmorphone HCL INJ (*CRX) 1 MG/ML SYR IV PUSH ×8 (01:16→23:43)
[2024-02-11] MEDS: MEROPENEM 1 GM/NS 100 ML 1 GM/100 ML BAG IVPB ×3 (05:13→20:55)
[2024-02-11] MEDS: HEPARIN SODIUM 5,000 UNITS/ML VIAL 5000 UNITS SUB-Q ×3 (05:14→20:55)
[2024-02-11] MEDS: ONDANSETRON INJ 4 MG/2 ML VIAL IV PUSH (05:23)
[2024-02-11 06:45] LABS: Basophils Percent Auto 0.6 % (0.2-1.2); Eosinophils Absolute Auto 0.2 K/mm3 (0-0.3); Eosinophils Percent Auto 2.4 % (0-4.4); Hematocrit 31.9 % (37.0-47.0); Hemoglobin 10.2 g/dL (12.0-15.0); Immature Granulocyte Absolute 0.03 K/mm3 (0.00-0.031); Immature Granulocyte Percent A 0.4 % (0-0.5); Lymphocytes Absolute Auto 1.64 K/mm3 (0.9-3.2); Lymphocytes Percent Auto 23.6 % (18.3-44.2); Mean Corpuscular Hemoglobin 30.1 pg (26-34); Mean Corpuscular Volume 94.1 fl (80-100); Mean Platelet Volume 10.3 fl (7.4-10.4); Monocytes Absolute Auto 0.3 K/mm3 (0.1-0.6); Monocytes Percent Auto 4.3 % (2.6-8.5); Neutrophils Absolute Auto 4.8 K/mm3 (1.3-6.7); Neutrophils Percent Auto 68.7 % (45.5-73.1); Platelet Count Result 206 k/mm3 (150-375); Red Blood Count 3.39 M/mm3 (4.2-5.4); Red Cell Distribution Width 14.1 % (11.5-14.5); White Blood Count 6.9 K/mm3 (4.5-10.0)
[2024-02-11 07:02] LABS: Anion Gap 9 mmol/L (4-12); Blood Urea Nitrogen 18 mg/dL (7-17); Calcium 9.5 mg/dL (8.4-10.2); Carbon Dioxide 21 mmol/L (22-30); Chloride 105 mmol/L (98-107); Estimated CRCL calculation 112 ml/min; Estimated Glomerular Filt Rate > 60; Glucose 131 mg/dL (65-110); Potassium 4.4 mmol/L (3.4-5.0); Sodium 135 mmol/L (137-145)
[2024-02-11 07:05] LABS: CRP < 0.5 mg/dL (<1.0)
[2024-02-11 07:14] VITALS: BP 105/50; PULSE 99; RESP 14; TEMP 36.6; O2SAT 99
--- NOTE | 2024-02-11 07:18 | PM.IMPN ---
Progress Note: A&P Assessment and Plan (1) UTI (urinary tract infection): Code(s): N39.0 - Urinary tract infection, site not specified Status: Acute (2) Osteomyelitis: Code(s): M86.9 - Osteomyelitis, unspecified Status: Acute (3) COVID: Code(s): U07.1 - COVID-19 Status: Acute Plan 43-year-old female who presents to the emergency department this evening complaining of lower abdominal/suprapubic pain for the past 2 days. test positive for COVID-19. 1. COVID-19 infection: asymptomatic On room air Will monitor closely 2. history of recurrent UTIs: history of chronic indwelling Marcos catheter continue with meropenem Follow-up urine culture 3. history of chronic osteomyelitis in the sacral region: continue with meropenem and vancomycin. Outpatient ID recommended 6 weeks of antibiotics per notes Wound care consult Discuss with surgery Follow ESR CRP with next set of labs 4. chronic necrotic ulcers of toes: Wound care consult 5. diabetes mellitus: Blood glucose checked t.i.d. a.c. and HS resume Lantus, will start on 10 units of Lantus at nighttime 5 units of mealtime insulin along with sliding scale next item adjust dose as needed 6. 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 Labs Na 134, CO2 21, BUN 18, Glucose 131 May need PICC for osteo, follow up final urine cultures Review of Systems Review of Systems: All systems reviewed & are unremarkable except as noted in HPI and below Exam Narrative: General: Alert, awake, afebrile, in no acute distress. HEENT: PERRL,oropharynx clear. Cardiovascular: Regular rate and rhythm, no murmurs, rubs or gallops, no peripheral edema. Respiratory: Clear to auscultation bilaterally, no tachypnea, no wheezing, no rhonchi, no rubs, no respiratory distress. Abdomen: Soft, nontender, nondistended, no rebound, no guarding, no peritoneal signs. Rectal: Sacral decubitus ulcer noted over the coccyx. Musculoskeletal: Chronic bilateral lower extremity toe necrosis. Skin: No rashes or petechia, no signs of infection. Psychiatric: Alert and oriented, normal behavior and judgment for situation. Neurological: Alert and oriented to person, place, and time. Follows all commands. Objective Data Vital Signs Vital Signs: Vital Signs - 24 hr 02/10/24 10:11 02/10/24 09:32 02/10/24 16:36 Temperature 97.6 F Pulse Rate 62 Respiratory Rate 16 19 Blood Pressure 111/64 Pulse Oximetry 98 98 98 Oxygen Delivery Room Air Room Air Fraction of Inspired Oxygen 21 02/10/24 19:19 02/10/24 19:54 02/10/24 21:26 Temperature 97.6 F 97.6 F Pulse Rate 62 76 Respiratory Rate 19 16 Blood Pressure 134/79 Pulse Oximetry 98 100 Oxygen Delivery Room Air Fraction of Inspired Oxygen 02/11/24 07:14 Temperature 97.9 F Pulse Rate 99 Respiratory Rate 14 Blood Pressure 105/50 L Pulse Oximetry 99 Oxygen Delivery Fraction of Inspired Oxygen Intake/Output Intake/Output: Intake & Output 02/08/24 02/09/24 02/10/24 02/11/24 23:59 23:59 23:59 23:59 Intake Total 1880 300 Output Total 1495 1650 Balance 385 -1350 Meds/Results Medications: Active Medications Generic Name Dose Route Start Last Admin Trade Name Freq PRN Reason Stop Dose Admin Aspirin 81 mg 02/10/24 09:00 02/10/24 09:32 Aspirin 81 Mg Chewable Tablet PO 81 mg DAILY SUSANNE Administration Atorvastatin Calcium 20 mg 02/10/24 21:00 02/10/24 20:57 Atorvastatin 20 Mg Tablet PO 20 mg HS SUSANNE Administration Citalopram Hydrobromide 10 mg 02/10/24 09:00 02/10/24 09:32 Citalopram Hydrobromide 10 Mg Tablet PO 10 mg QAM SUSANNE Administration Dextrose 12.5 gm 02/10/24 08:37 Dex
[2024-02-11 07:19] LABS: Erythrocyte Sedimentation Rate 57 mm/hr (0-20)
[2024-02-11 08:20] LABS: Glucose Point of Care 130 mg/dl (65-105)
[2024-02-11 08:41] VITALS: RESP 16; O2SAT 99
[2024-02-11] MEDS: VANCOMYCIN HCL 125 MG ORAL CAPSULE PO ×4 (08:41→23:43)
[2024-02-11] MEDS: CITALOPRAM HYDROBROMIDE 10 MG TABLET PO (08:41)
[2024-02-11] MEDS: ASPIRIN 81 MG CHEWABLE TABLET PO (08:41)
[2024-02-11 11:53] LABS: Glucose Point of Care 126 mg/dl (65-105)
[2024-02-11] MEDS: GABAPENTIN 300 MG CAPSULE PO ×2 (13:22→17:17)
[2024-02-11 14:00] VITALS: BP 132/62; PULSE 70; RESP 16; TEMP 36.7; O2SAT 100
[2024-02-11 17:08] LABS: Glucose Point of Care 104 mg/dl (65-105)
[2024-02-11 19:59] LABS: Glucose Point of Care 178 mg/dl (65-105)
[2024-02-11 20:22] VITALS: BP 161/78; PULSE 77; RESP 20; TEMP 37; O2SAT 100
[2024-02-11] MEDS: traZODone HCL 50 MG TABLET 100 MG PO (20:55)
[2024-02-11] MEDS: MELATONIN 5 MG TABLET 10 MG PO (20:55)
[2024-02-11] MEDS: ATORVASTATIN 20 MG TABLET PO (20:55)
[2024-02-11] MEDS: INSULIN GLARGINE (*BKC) 100 UNITS/ML 10 UNITS SUB-Q (20:56)
[2024-02-12] MEDS: HYDROmorphone HCL INJ (*CRX) 1 MG/ML SYR IV PUSH ×6 (03:02→20:44)
[2024-02-12 06:00] VITALS: BP 121/57; PULSE 85; RESP 18; TEMP 36.8; O2SAT 99
[2024-02-12] MEDS: MEROPENEM 1 GM/NS 100 ML 1 GM/100 ML BAG IVPB ×3 (06:28→21:27)
[2024-02-12] MEDS: HEPARIN SODIUM 5,000 UNITS/ML VIAL 5000 UNITS SUB-Q ×3 (06:28→21:27)
[2024-02-12] MEDS: VANCOMYCIN HCL 125 MG ORAL CAPSULE PO ×2 (06:28→12:16)
[2024-02-12 08:18] LABS: Glucose Point of Care 117 mg/dl (65-105)
[2024-02-12 08:42] LABS: Basophils Percent Auto 0.4 % (0.2-1.2); Eosinophils Absolute Auto 0.1 K/mm3 (0-0.3); Hematocrit 33.3 % (37.0-47.0); Hemoglobin 10.5 g/dL (12.0-15.0); Immature Granulocyte Absolute 0.02 K/mm3 (0.00-0.031); Immature Granulocyte Percent A 0.4 % (0-0.5); Lymphocytes Absolute Auto 1.44 K/mm3 (0.9-3.2); Lymphocytes Percent Auto 25.7 % (18.3-44.2); Mean Corpuscular HGB Conc 31.5 g/dl (32-36); Mean Corpuscular Hemoglobin 29.9 pg (26-34); Mean Corpuscular Volume 94.9 fl (80-100); Monocytes Absolute Auto 0.3 K/mm3 (0.1-0.6); Monocytes Percent Auto 4.6 % (2.6-8.5); Neutrophils Absolute Auto 3.8 K/mm3 (1.3-6.7); Neutrophils Percent Auto 66.9 % (45.5-73.1); Platelet Count Result 197 k/mm3 (150-375); Red Blood Count 3.51 M/mm3 (4.2-5.4); Red Cell Distribution Width 13.7 % (11.5-14.5); White Blood Count 5.6 K/mm3 (4.5-10.0)
[2024-02-12 08:51] LABS: Alanine Aminotransferase 77 U/L (6-35); Albumin Level 3.7 g/dL (3.5-5.1); Alkaline Phosphatase 111 U/L (38-126); Anion Gap 8 mmol/L (4-12); Aspartate Amino Transferase 48 U/L (14-36); Bilirubin,Total 0.4 mg/dL (0.2-1.3); Blood Urea Nitrogen 17 mg/dL (7-17); Calcium 9.5 mg/dL (8.4-10.2); Carbon Dioxide 23 mmol/L (22-30); Chloride 105 mmol/L (98-107); Estimated CRCL calculation 112 ml/min; Estimated Glomerular Filt Rate > 60; Glucose 105 mg/dL (65-110); Potassium 4.2 mmol/L (3.4-5.0); Sodium 136 mmol/L (137-145)
[2024-02-12] MEDS: GABAPENTIN 300 MG CAPSULE PO ×3 (09:13→18:03)
[2024-02-12] MEDS: INSULIN ASPART (*BKC) 100 UNITS/ML SUB-Q ×2 (09:13→12:22)
[2024-02-12] MEDS: ASPIRIN 81 MG CHEWABLE TABLET PO (09:13)
[2024-02-12] MEDS: CITALOPRAM HYDROBROMIDE 10 MG TABLET PO (09:13)
[2024-02-12 11:54] LABS: Glucose Point of Care 109 mg/dl (65-105)
[2024-02-12 14:00] VITALS: BP 120/64; PULSE 76; RESP 12; TEMP 36.8; O2SAT 99
--- NOTE | 2024-02-12 14:21 | PM.IMPN ---
Progress Note: A&P Assessment and Plan (1) UTI (urinary tract infection): Code(s): N39.0 - Urinary tract infection, site not specified Status: Acute (2) Osteomyelitis: Code(s): M86.9 - Osteomyelitis, unspecified Status: Acute (3) COVID: Code(s): U07.1 - COVID-19 Status: Acute Plan 43-year-old female who presents to the emergency department this evening complaining of lower abdominal/suprapubic pain for the past 2 days. test positive for COVID-19. history of chronic osteomyelitis in the sacral region: continue with meropenem. Stop IV Vancomycin. Outpatient ID recommended 6 weeks of antibiotics per notes Wound care consult Discussed with outpatient surgery, will get a bone scan. CRP was normal. Wound clean and not draining Follow ESR CRP with next set of labs COVID-19 infection: asymptomatic On room air Will monitor closely UTI, present on admission, catheter associated History of chronic indwelling Marcos catheter Continue meropenem Follow-up urine culture--sensitive to carbapenems and zosyn. Complicated UTI chronic necrotic ulcers of toes: Wound care consult diabetes mellitus: Blood glucose checked t.i.d. a.c. and HS resume Lantus, will start on 10 units of Lantus at nightime 5 units of mealtime insulin along with sliding scale next item adjust dose as needed Diarrhea Hx C-diff Was on oral vanc 125 q6, off for 5 days prior to admission. Now with increased diarrhea on 125mg q6 oral vanc --Increase Oral vanc to 250 q6 and monitor diarrhea. 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 Notes she was off Pain to legs and wound slightly improved. admitted 02/09 CT abd/pelvis--colitis, chronic sacrococcygeal osteomyelitis-- VSS. Labs Na 134, CO2 21, BUN 18, Glucose 131 May need PICC for osteo--discussing with Dr. Roman, follow up final urine cultures Review of Systems Review of Systems: All systems reviewed & are unremarkable except as noted in HPI and below Exam Narrative: General: Alert, awake, afebrile, in no acute distress. HEENT: PERRL,oropharynx clear. Cardiovascular: Regular rate and rhythm, no murmurs, rubs or gallops, no peripheral edema. Respiratory: Clear to auscultation bilaterally, no tachypnea, no wheezing, no rhonchi, no rubs, no respiratory distress. Abdomen: Soft, nontender, nondistended, no rebound, no guarding, no peritoneal signs. Rectal: Sacral decubitus ulcer noted over the coccyx. Musculoskeletal: Chronic bilateral lower extremity toe necrosis. Skin: No rashes or petechia, no signs of infection. Psychiatric: Alert and oriented, normal behavior and judgment for situation. Neurological: Alert and oriented to person, place, and time. Follows all commands. Bilateral LE paralysis Objective Data Vital Signs Vital Signs: Vital Signs - 24 hr 02/11/24 20:22 02/11/24 20:48 02/12/24 06:00 Temperature 98.6 F 98.3 F Pulse Rate 77 85 Respiratory Rate 20 18 Blood Pressure 161/78 H 121/57 L Pulse Oximetry 100 99 Oxygen Delivery Room Air 02/12/24 09:15 Temperature Pulse Rate Respiratory Rate Blood Pressure Pulse Oximetry Oxygen Delivery Room Air Intake/Output Intake/Output: Intake & Output 02/09/24 02/10/24 02/11/24 02/12/24 23:59 23:59 23:59 23:59 Intake Total 1880 1990 1540 Output Total 1495 2500 1800 Balance 766 -511 -230 Meds/Results Medications: Active Medications Generic Name Dose Route Start Last Admin Trade Name Freq PRN Reason Stop Dose Admin Aspirin 81 mg 02/10/24 09:00 02/12/24 09:13 Aspirin 81 Mg Chewable Tablet PO 81 mg DAILY SUSANNE Administration Atorvastatin Calcium 20 mg 02/10/24 21:00 02/11/24 20:55 Atorvastatin 20 Mg Tablet PO 20 mg HS SUSANNE Administration Citalopram Almo
[2024-02-12 16:01] LABS: Glucose Point of Care 71 mg/dl (65-105)
[2024-02-12] MEDS: VANCOMYCIN HCL 125 MG ORAL CAPSULE 250 MG PO (18:04)
[2024-02-12 20:29] LABS: Glucose Point of Care 173 mg/dl (65-105)
[2024-02-12] MEDS: traZODone HCL 50 MG TABLET 100 MG PO (20:39)
[2024-02-12] MEDS: MELATONIN 5 MG TABLET 10 MG PO (20:40)
[2024-02-12] MEDS: ATORVASTATIN 20 MG TABLET PO (20:40)
[2024-02-12 20:45] VITALS: BP 154/73; PULSE 86; RESP 18; TEMP 37.1; O2SAT 100
[2024-02-12] MEDS: INSULIN GLARGINE (*BKC) 100 UNITS/ML 10 UNITS SUB-Q (21:24)
[2024-02-13] MEDS: VANCOMYCIN HCL 125 MG ORAL CAPSULE 250 MG PO ×5 (00:46→23:04)
[2024-02-13] MEDS: HYDROmorphone HCL INJ (*CRX) 1 MG/ML SYR IV PUSH ×8 (01:31→23:05)
[2024-02-13] MEDS: HEPARIN SODIUM 5,000 UNITS/ML VIAL 5000 UNITS SUB-Q ×3 (05:07→21:39)
[2024-02-13] MEDS: MEROPENEM 1 GM/NS 100 ML 1 GM/100 ML BAG IVPB ×3 (05:08→21:40)
[2024-02-13 05:47] LABS: Basophils Percent Auto 0.4 % (0.2-1.2); Eosinophils Absolute Auto 0.1 K/mm3 (0-0.3); Eosinophils Percent Auto 1.8 % (0-4.4); Hematocrit 29.6 % (37.0-47.0); Hemoglobin 9.7 g/dL (12.0-15.0); Immature Granulocyte Absolute 0.02 K/mm3 (0.00-0.031); Immature Granulocyte Percent A 0.3 % (0-0.5); Lymphocytes Absolute Auto 1.64 K/mm3 (0.9-3.2); Lymphocytes Percent Auto 23.2 % (18.3-44.2); Mean Corpuscular HGB Conc 32.8 g/dl (32-36); Mean Corpuscular Hemoglobin 30.8 pg (26-34); Mean Platelet Volume 10.3 fl (7.4-10.4); Monocytes Absolute Auto 0.4 K/mm3 (0.1-0.6); Monocytes Percent Auto 5.1 % (2.6-8.5); Neutrophils Absolute Auto 4.9 K/mm3 (1.3-6.7); Neutrophils Percent Auto 69.2 % (45.5-73.1); Platelet Count Result 192 k/mm3 (150-375); Red Blood Count 3.15 M/mm3 (4.2-5.4); Red Cell Distribution Width 13.8 % (11.5-14.5); White Blood Count 7.1 K/mm3 (4.5-10.0)
[2024-02-13 06:00] VITALS: BP 114/61; PULSE 70; RESP 20; TEMP 36.8; O2SAT 98
[2024-02-13 06:10] LABS: Alanine Aminotransferase 53 U/L (6-35); Albumin Level 3.2 g/dL (3.5-5.1); Alkaline Phosphatase 102 U/L (38-126); Anion Gap 10 mmol/L (4-12); Aspartate Amino Transferase 31 U/L (14-36); Bilirubin,Total 0.2 mg/dL (0.2-1.3); Blood Urea Nitrogen 24 mg/dL (7-17); Calcium 8.6 mg/dL (8.4-10.2); Carbon Dioxide 23 mmol/L (22-30); Chloride 105 mmol/L (98-107); Estimated CRCL calculation 99 ml/min; Estimated Glomerular Filt Rate > 60; Glucose 118 mg/dL (65-110); Potassium 3.8 mmol/L (3.4-5.0); Sodium 138 mmol/L (137-145)
--- NOTE | 2024-02-13 07:56 | PM.IMPN ---
Progress Note: A&P Assessment and Plan (1) UTI (urinary tract infection): Code(s): N39.0 - Urinary tract infection, site not specified Status: Acute (2) Osteomyelitis: Code(s): M86.9 - Osteomyelitis, unspecified Status: Acute (3) COVID: Code(s): U07.1 - COVID-19 Status: Acute Plan 43-year-old female who presents to the emergency department this evening complaining of lower abdominal/suprapubic pain for the past 2 days. test positive for COVID-19. history of chronic osteomyelitis in the sacral region: continue with meropenem. Stop IV Vancomycin. Outpatient ID recommended 6 weeks of antibiotics per notes Wound care consult Discussed with outpatient surgery, will get a bone scan. CRP was normal. Wound clean and not draining Follow ESR CRP with next set of labs COVID-19 infection: asymptomatic On room air Will monitor closely UTI, present on admission, catheter associated History of chronic indwelling Ledbetter catheter Continue meropenem Follow-up urine culture--sensitive to carbapenems and zosyn. Complicated UTI chronic necrotic ulcers of toes: Wound care consult Bilateral LE paralysis Chronic LE pain Increase Gabapentin 300<400 TID Add nortriptyline 10hs Topical lidocaine Turn q2 diabetes mellitus: Blood glucose checked t.i.d. a.c. and HS resume Lantus, will start on 10 units of Lantus at nightime 5 units of mealtime insulin along with sliding scale next item adjust dose as needed Diarrhea Hx C-diff Was on oral vanc 125 q6, off for 5 days prior to admission. Now with increased diarrhea on 125mg q6 oral vanc --Increase Oral vanc to 250 q6 and monitor diarrhea, seems improved. 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 Treating UTI with meropenem, complicated since indwelling ledbetter. Ledbetter changed in the ED Review of Systems Review of Systems: All systems reviewed & are unremarkable except as noted in HPI and below Exam Narrative: General - Awake and alert. No acute distress Eyes - PERRLA, EOM intact ENT - No thrush, No erythema Neck - No noticeable or palpable swelling Lymph Nodes - No lymphadenopathy Cardiovascular - RRR no m/r/g, no JVD Lungs: Clear to auscultation, No wheezing, use of accessory muscles, no crackles or wheezes. Skin - Skin warm and dry, rashes, small sacral wound without drainage Abdomen - Normal bowel sounds, abdomen soft and nontender Extremities - No edema, cyanosis or clubbing, bilateral LE paralysis +sensation, no movement Musculoskeletal - 5/5 strength, normal range of motion, no swollen or erythematous joints. Neurological ? Alert and oriented x 3, CN 2-12 grossly intact . LE Paralysis Psych: Normal mood and affect Objective Data Vital Signs Vital Signs: Vital Signs - 24 hr 02/12/24 09:15 02/12/24 14:00 02/12/24 20:45 Temperature 98.2 F 98.7 F Pulse Rate 76 86 Respiratory Rate 12 18 Blood Pressure 120/64 154/73 H Pulse Oximetry 99 100 Oxygen Delivery Room Air 02/13/24 06:00 Temperature 98.2 F Pulse Rate 70 Respiratory Rate 20 Blood Pressure 114/61 Pulse Oximetry 98 Oxygen Delivery Intake/Output Intake/Output: Intake & Output 02/10/24 02/11/24 02/12/24 02/13/24 23:59 23:59 23:59 23:59 Intake Total 1880 1990 3080 580 Output Total 1495 2500 2950 1200 Balance 385 510 130 -620 Meds/Results Medications: Active Medications Generic Name Dose Route Start Last Admin Trade Name Freq PRN Reason Stop Dose Admin Aspirin 81 mg 02/10/24 09:00 02/12/24 09:13 Aspirin 81 Mg Chewable Tablet PO 81 mg DAILY SUSANNE Administration Atorvastatin Calcium 20 mg 02/10/24 21:00 02/12/24 20:40
[2024-02-13 08:01] LABS: Glucose Point of Care 128 mg/dl (65-105)
[2024-02-13] MEDS: ASPIRIN 81 MG CHEWABLE TABLET PO (08:03)
[2024-02-13] MEDS: CITALOPRAM HYDROBROMIDE 10 MG TABLET PO (08:03)
[2024-02-13] MEDS: GABAPENTIN 300 MG CAPSULE PO ×2 (08:03→13:03)
[2024-02-13 11:50] LABS: Glucose Point of Care 151 mg/dl (65-105)
[2024-02-13] MEDS: INSULIN ASPART (*BKC) 100 UNITS/ML SUB-Q (13:03)
[2024-02-13 15:54] VITALS: BP 132/77; PULSE 84; RESP 18; TEMP 36.1; O2SAT 100
[2024-02-13] MEDS: GABAPENTIN 400 MG CAPSULE PO (17:01)
[2024-02-13 17:04] LABS: Glucose Point of Care 115 mg/dl (65-105)
[2024-02-13] MEDS: INSULIN GLARGINE (*BKC) 100 UNITS/ML 10 UNITS SUB-Q (20:09)
[2024-02-13] MEDS: NORTRIPTYLINE HCL 10 MG CAPSULE PO (20:10)
[2024-02-13] MEDS: traZODone HCL 50 MG TABLET 100 MG PO (20:10)
[2024-02-13] MEDS: ATORVASTATIN 20 MG TABLET PO (20:10)
[2024-02-13] MEDS: MELATONIN 5 MG TABLET 10 MG PO (20:10)
[2024-02-13 20:20] LABS: Glucose Point of Care 122 mg/dl (65-105)
[2024-02-13 20:28] VITALS: BP 160/75; PULSE 86; RESP 18; TEMP 36.9; O2SAT 99
[2024-02-13] MEDS: LIDOCAINE HCL 4% SOLN 50 ML BTL 1 APPLIC TOPICAL (21:40)
[2024-02-14] MEDS: HYDROmorphone HCL INJ (*CRX) 1 MG/ML SYR IV PUSH ×7 (02:02→21:26)
[2024-02-14] MEDS: LIDOCAINE HCL 4% SOLN 50 ML BTL 1 APPLIC TOPICAL (02:06)
[2024-02-14] MEDS: HEPARIN SODIUM 5,000 UNITS/ML VIAL 5000 UNITS SUB-Q ×2 (05:37→14:44)
[2024-02-14] MEDS: VANCOMYCIN HCL 125 MG ORAL CAPSULE 250 MG PO ×2 (05:38→12:11)
[2024-02-14] MEDS: MEROPENEM 1 GM/NS 100 ML 1 GM/100 ML BAG IVPB ×3 (05:39→21:32)
[2024-02-14 06:00] VITALS: BP 127/55; PULSE 83; RESP 20; TEMP 36.6; O2SAT 100
[2024-02-14 07:51] LABS: Glucose Point of Care 117 mg/dl (65-105)
--- NOTE | 2024-02-14 07:52 | PM.IMPN ---
Progress Note: A&P Assessment and Plan (1) UTI (urinary tract infection): Code(s): N39.0 - Urinary tract infection, site not specified Status: Acute (2) Osteomyelitis: Code(s): M86.9 - Osteomyelitis, unspecified Status: Acute (3) COVID: Code(s): U07.1 - COVID-19 Status: Acute Plan 43-year-old female who presents to the emergency department this evening complaining of lower abdominal/suprapubic pain for the past 2 days. test positive for COVID-19. UTI, present on admission, catheter associated History of chronic indwelling Ledbetter catheter. Ledbetter was changed in the ED 02/09 Continue meropenem 02/09-02/16 AM Follow-up urine culture--sensitive to carbapenems and zosyn. Complicated UTI Diarrhea Hx C-diff Was on oral vanc 125 q6, off for 5 days prior to admission. Now with increased diarrhea on 125mg q6 oral vanc --Increase Oral vanc to 500 q6 and monitor diarrhea, seems improved with higher dose. Change to fidaxomicin if diarrhea not resolving --Limit antibiotics when able history of chronic osteomyelitis in the sacral region: CT abd/pelvis showed sacral osteomyelitis. Bone scan showed osteomyelitis but no progression between 01/01-01/26. Discussed with Dr. Roman, surgery and he reports the wound has been healing. CRP was normal, Overall since there has been no progression in a month off antibiotics, risk of antibiotics outweighs the benefit in the short term, especially in the setting of recent C-dff. Previously unable to obtain a bone biopsy and would prefer a bone biopsy off antibiotics so could narrow antibiotics if possible. --Wound care consulted, continuing local wound care Discussed with outpatient surgery, will get a bone scan. CRP (0.5) & Alk phos (102) were normal. ESR only slightly elevated 1-2. Wound clean and minimal nonpurulent drainage. --Recommend repeat CBC, CMP, ESR , CRP in 1-2 weeks --Consider repeat imaging --Follow up with surgery, Dr. Roman in 1 month --Consider ID follow up, defer pending follow up with surgery --Try to obtain bone biopsy off antibiotics if stable with worsening wound, labs, or imaging. 02/13/24 Bone Scan There is increased uptake at the sacrococcygeal junction on the delayed posterior imaging. Minimal increased uptake in this region on the angiographic phase and mild uptake in this region on the immediate blood pool images. Findings consistent with osteomyelitis. As noted on the most recent CT study on 01/27/2024 there is erosion of the bones at either side of the sacrococcygeal junction which appears to have occurred between the imaging on 11/27/2023 and 01/02/2024. No significant progression between 01/02/2024 and 01/27/2024. COVID-19 infection: asymptomatic except headache intermittently On room air chronic necrotic ulcers of toes: Wound care consult Bilateral LE paralysis Chronic LE pain Increase Gabapentin 300<400<600 TID. She reports taking 5 gabapentin at once when she's having a lot of pain. Needs better control overall Started nortriptyline 10hs, Topical lidocaine Turn q2 Consider pain management referral/follow up diabetes mellitus: Blood sugars controlled. 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 Erosion of the bones noted between 11/26 and 01/01, with no signficant progression between 01/01 and 01/27/24 Treating UTI with meropenem, complicated since indwelling ledbetter. Ledbetter changed in the ED 12/10 Frequent diarrhea and irritation to skin Leg pain, intermittently severe Review of Systems Review of Systems: Leg pain, Occa
[2024-02-14] MEDS: CITALOPRAM HYDROBROMIDE 10 MG TABLET PO (08:37)
[2024-02-14] MEDS: GABAPENTIN 400 MG CAPSULE PO ×2 (08:37→12:12)
[2024-02-14] MEDS: ASPIRIN 81 MG CHEWABLE TABLET PO (08:37)
--- NOTE | 2024-02-14 11:18 | PCNFU ---
Nutrition Follow-Up Complete: Increased protein needs as related to wounds as evidenced by pressure ulcers reported. Goal: Adequate Intake of at least 75% of meals/supplements Patient is meeting goal. No new goal. Pt current nutrition is DBCC with Ensure Compact BID and Wilmer BID. Last recorded weight is 83.1 kg, no new weight to report. Bowel Motility: +BM reported 02/13 Labs Reviewed:no labs to report. Meds Noted: Lipitor, Lantus, NovoLog, Vancomycin. Skin: WNL Additional Notes: Patient remains on a DBCC diet, eating 100% of meals. Tolerating diet supplements of Ensure Compact and Wilmer BID. Agree with diet orders. RD will monitor weight, labs, skin, oral intake, meds every 7 days.
[2024-02-14 12:00] LABS: Glucose Point of Care 144 mg/dl (65-105)
[2024-02-14] MEDS: INSULIN ASPART (*BKC) 100 UNITS/ML SUB-Q (12:12)
[2024-02-14 14:00] VITALS: BP 145/80; PULSE 85; RESP 12; TEMP 36.5; O2SAT 98
[2024-02-14 17:14] LABS: Glucose Point of Care 70 mg/dl (65-105)
[2024-02-14] MEDS: GABAPENTIN 300 MG CAPSULE 600 MG PO (18:00)
[2024-02-14] MEDS: VANCOMYCIN HCL 125 MG ORAL CAPSULE 500 MG PO (18:00)
[2024-02-14 20:00] VITALS: PULSE 80; RESP 20; O2SAT 100
[2024-02-14 20:57] LABS: Glucose Point of Care 154 mg/dl (65-105)
[2024-02-14 21:06] VITALS: BP 152/63; PULSE 80; RESP 20; TEMP 36.8; O2SAT 100
[2024-02-14] MEDS: ATORVASTATIN 20 MG TABLET PO (21:22)
[2024-02-14] MEDS: NORTRIPTYLINE HCL 10 MG CAPSULE PO (21:22)
[2024-02-14] MEDS: traZODone HCL 50 MG TABLET 100 MG PO (21:22)
[2024-02-14] MEDS: MELATONIN 5 MG TABLET 10 MG PO (21:23)
[2024-02-14] MEDS: MICONAZOLE NITRATE 2% CREAM 30 GM TUBE 1 APPLIC TOPICAL (21:23)
[2024-02-14] MEDS: ENOXAPARIN 40 MG/0.4 ML SYRINGE SUB-Q (21:23)
[2024-02-14] MEDS: INSULIN GLARGINE (*BKC) 100 UNITS/ML 10 UNITS SUB-Q (21:39)
[2024-02-15] MEDS: VANCOMYCIN HCL 125 MG ORAL CAPSULE 500 MG PO ×2 (00:37→06:53)
[2024-02-15] MEDS: HYDROmorphone HCL INJ (*CRX) 1 MG/ML SYR IV PUSH ×8 (00:39→23:31)
[2024-02-15 06:00] VITALS: BP 118/73; PULSE 94; RESP 18; TEMP 36.7; O2SAT 100
[2024-02-15] MEDS: MEROPENEM 1 GM/NS 100 ML 1 GM/100 ML BAG IVPB ×3 (06:54→22:29)
[2024-02-15 07:55] LABS: Glucose Point of Care 129 mg/dl (65-105)
[2024-02-15] MEDS: ASPIRIN 81 MG CHEWABLE TABLET PO (08:26)
[2024-02-15] MEDS: MICONAZOLE NITRATE 2% CREAM 30 GM TUBE 1 APPLIC TOPICAL ×2 (08:26→20:48)
[2024-02-15] MEDS: GABAPENTIN 300 MG CAPSULE 600 MG PO ×3 (08:26→16:43)
[2024-02-15] MEDS: CITALOPRAM HYDROBROMIDE 10 MG TABLET PO (08:26)
--- NOTE | 2024-02-15 11:53 | PM.IMPN ---
Progress Note: A&P Assessment and Plan (1) UTI (urinary tract infection): Code(s): N39.0 - Urinary tract infection, site not specified Status: Acute Assessment and Plan: Catheter associated Resistant Klebsiella Continue Meropenem through 02/16 Missed outpatient appt with Dr. Dewitt due to hospitalization and would like to discuss catheter removal with him prior to discharge (2) Clostridium difficile enterocolitis: Code(s): A04.72 - Enterocolitis due to Clostridium difficile, not specified as recurrent Status: Acute Assessment and Plan: 02/15/24: Switch from vancomycin po to Dificid Note that diarrhea stopped while not taking vancomycin and resume when vancomycin was restarted (3) Osteomyelitis: Code(s): M86.9 - Osteomyelitis, unspecified Status: Acute Assessment and Plan: Currently receiving Meropenem Was following with Dr. Roman as outpatient and wishes to discuss PICC line again with him prior to discharge (consult entered for 02/16) ID at [facility] recommended 6 weeks IV Invanz (per Dr. Roman's outpatient notes) (4) COVID: Code(s): U07.1 - COVID-19 Status: Acute Assessment and Plan: Currently asymptomatic (5) Spinal cord stroke: Code(s): G95.11 - Acute infarction of spinal cord (embolic) (nonembolic) Status: Chronic Assessment and Plan: With paraplegia that is improving Pain helped by gabapentin and topical lidocaine (6) Neurogenic bladder: Code(s): N31.9 - Neuromuscular dysfunction of bladder, unspecified Status: Acute Assessment and Plan: Urology to evaluate re: catheter removal (7) Diabetic peripheral neuropathy: Code(s): E11.42 - Type 2 diabetes mellitus with diabetic polyneuropathy Status: Acute Assessment and Plan: Gabapentin and lidocaine helping pain (8) Type 1 diabetes mellitus: Code(s): E10.9 - Type 1 diabetes mellitus without complications Status: Chronic Assessment and Plan: 02/14 FBS 129 Continue Lantus 10 units HS Lispro 5 units TID with meals & SSI (9) Pressure ulcer of sacral region: Qualifiers: Pressure injury stage: unspecified pressure injury stage Qualified Code(s): L89.159 - Pressure ulcer of sacral region, unspecified stage Code(s): L89.159 - Pressure ulcer of sacral region, unspecified stage Status: Chronic Assessment and Plan: Improving Continue wound care Subjective Date/time seen: 02/15/24 11:53 Interval history: Doing well overall, except still experiencing diarrhea. States vancomycin does not work for her c diff. Has not tried Dificid. She and her do not want to consider fecal transplant. Review of Systems Review of Systems: All systems reviewed & are unremarkable except as noted in HPI and below Exam Narrative: General - Awake and alert. No acute distress Eyes - PERRLA, EOM intact ENT - No thrush, No erythema Neck - No noticeable or palpable swelling Lymph Nodes - No lymphadenopathy Cardiovascular - RRR no m/r/g, no JVD Lungs: Clear to auscultation, No wheezing, use of accessory muscles, no crackles or wheezes. Skin - Skin warm and dry, rashes, small sacral wound without drainage Abdomen - Normal bowel sounds, abdomen soft and nontender Extremities - No edema, cyanosis or clubbing, bilateral LE paralysis +sensation, + pain, no movement Musculoskeletal - 5/5 strength, normal range of motion, no swollen or erythematous joints. Neurological ? Alert and oriented x 3, CN 2-12 grossly intact . LE Paralysis Psych: Intermittently tearful Objective Data Vital Signs Vital Signs: Vital Signs - 24 hr 02/14/24 14:00 02/14/24 21:06 02/14/24 20:00 Temperature 97.7 F 98.2 F Pulse Rate 85 80 80 Respiratory Rate 12 20 20 Blood Pressure 145/80 H 152/63 H Pulse Oximetry 98 100 100 Oxygen Delivery Room Air Fraction of Inspired Oxygen 02/15/24 06:00 Te
[2024-02-15 12:00] LABS: Glucose Point of Care 131 mg/dl (65-105)
[2024-02-15 14:00] VITALS: BP 137/73; PULSE 93; RESP 18; TEMP 37.2; O2SAT 100
[2024-02-15] MEDS: LIDOCAINE HCL 4% SOLN 50 ML BTL 1 APPLIC TOPICAL ×2 (16:46→20:48)
[2024-02-15 16:57] LABS: Glucose Point of Care 139 mg/dl (65-105)
[2024-02-15 20:29] VITALS: BP 143/67; PULSE 109; RESP 16; TEMP 36.7; O2SAT 100
[2024-02-15] MEDS: ATORVASTATIN 20 MG TABLET PO (20:29)
[2024-02-15] MEDS: ENOXAPARIN 40 MG/0.4 ML SYRINGE SUB-Q (20:29)
[2024-02-15] MEDS: FIDAXOMICIN 200 MG TABLET PO (20:29)
[2024-02-15] MEDS: MELATONIN 5 MG TABLET 10 MG PO (20:30)
[2024-02-15] MEDS: NORTRIPTYLINE HCL 10 MG CAPSULE PO (20:30)
[2024-02-15] MEDS: traZODone HCL 50 MG TABLET 100 MG PO (20:30)
[2024-02-15] MEDS: INSULIN GLARGINE (*BKC) 100 UNITS/ML 10 UNITS SUB-Q (20:31)
[2024-02-15 20:45] LABS: Glucose Point of Care 176 mg/dl (65-105)
[2024-02-16] MEDS: HYDROmorphone HCL INJ (*CRX) 1 MG/ML SYR IV PUSH ×5 (02:23→18:23)
[2024-02-16] MEDS: MEROPENEM 1 GM/NS 100 ML 1 GM/100 ML BAG IVPB ×2 (05:36→13:50)
[2024-02-16 06:00] VITALS: BP 100/49; PULSE 84; RESP 16; TEMP 36.3; O2SAT 99
--- NOTE | 2024-02-16 07:31 | P.PNIM_ITS ---
Progress Note: A&P Assessment and Plan (1) UTI (urinary tract infection): Code(s): N39.0 - Urinary tract infection, site not specified Status: Acute Assessment and Plan: * Catheter associated * Resistant Klebsiella * Continue Meropenem through 02/16 * Missed outpatient appt with Dr. Dewitt due to hospitalization and would like to discuss catheter removal with him prior to discharge (2) Clostridium difficile enterocolitis: Code(s): A04.72 - Enterocolitis due to Clostridium difficile, not specified as recurrent Status: Acute Assessment and Plan: * 02/15/24: Switch from vancomycin po to Dificid * Note that diarrhea stopped while not taking vancomycin and resume when vancomycin was restarted (3) Osteomyelitis: Code(s): M86.9 - Osteomyelitis, unspecified Status: Acute Assessment and Plan: * Currently receiving Meropenem for UTI * Previous culture 01/11/24 with Enterobacter sensitive to meropenem needs treatment this was discontinued at [facility] in an attempt to get a bone biopsy off antibiotic * Bone biopsy was not completed due to patient stating it was to painful * PICC was removed and they did not continue IV ABX * Currently holding on 6 week ertapenem IV since bone scan showed no progression this could only exacerbate patient's C diff * follows with dr. Roman O/P/ we will verify with Dr. Roman regarding IV antibiotics prior to discharge * ID at [facility] recommended 6 weeks IV Invanz (per Dr. 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 - Acute infarction of spinal cord (embolic) (nonembolic) Status: Chronic Assessment and Plan: * With paraplegia that is improving * Pain helped by gabapentin and topical lidocaine (6) Neurogenic bladder: Code(s): N31.9 - Neuromuscular dysfunction of bladder, unspecified Status: Acute Assessment and Plan: * Urology to evaluate re: catheter removal (7) Diabetic peripheral neuropathy: Code(s): E11.42 - Type 2 diabetes mellitus with diabetic polyneuropathy Status: Acute Assessment and Plan: * Gabapentin and lidocaine helping pain (8) Type 1 diabetes mellitus: Code(s): E10.9 - Type 1 diabetes mellitus without complications Status: Chronic Assessment and Plan: * 02/14 FBS 129 * Continue Lantus 10 units HS * Lispro 5 units TID with meals & SSI * Accucheck ACHS * hypolycemic protocol (9) Pressure ulcer of sacral region: Qualifiers: Pressure injury stage: unspecified pressure injury stage Qualified Code(s): L89.159 - Pressure ulcer of sacral region, unspecified stage Code(s): L89.
--- NOTE | 2024-02-16 07:31 | PM.IMPN ---
Progress Note: A&P Assessment and Plan (1) UTI (urinary tract infection): Code(s): N39.0 - Urinary tract infection, site not specified Status: Acute Assessment and Plan: Catheter associated Resistant Klebsiella Continue Meropenem through 02/16 Missed outpatient appt with Dr. Dewitt due to hospitalization and would like to discuss catheter removal with him prior to discharge (2) Clostridium difficile enterocolitis: Code(s): A04.72 - Enterocolitis due to Clostridium difficile, not specified as recurrent Status: Acute Assessment and Plan: 02/15/24: Switch from vancomycin po to Dificid Note that diarrhea stopped while not taking vancomycin and resume when vancomycin was restarted (3) Osteomyelitis: Code(s): M86.9 - Osteomyelitis, unspecified Status: Acute Assessment and Plan: Currently receiving Meropenem for UTI Previous culture 01/11/24 with Enterobacter sensitive to meropenem needs treatment this was discontinued at [facility] in an attempt to get a bone biopsy off antibiotic Bone biopsy was not completed due to patient stating it was to painful PICC was removed and they did not continue IV ABX Currently holding on 6 week ertapenem IV since bone scan showed no progression this could only exacerbate patient's C diff follows with dr. Roman O/P/ we will verify with Dr. Roman regarding IV antibiotics prior to discharge ID at [place] recommended 6 weeks IV Invanz (per Dr. 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 - Acute infarction of spinal cord (embolic) (nonembolic) Status: Chronic Assessment and Plan: With paraplegia that is improving Pain helped by gabapentin and topical lidocaine (6) Neurogenic bladder: Code(s): N31.9 - Neuromuscular dysfunction of bladder, unspecified Status: Acute Assessment and Plan: Urology to evaluate re: catheter removal (7) Diabetic peripheral neuropathy: Code(s): E11.42 - Type 2 diabetes mellitus with diabetic polyneuropathy Status: Acute Assessment and Plan: Gabapentin and lidocaine helping pain (8) Type 1 diabetes mellitus: Code(s): E10.9 - Type 1 diabetes mellitus without complications Status: Chronic Assessment and Plan: 02/14 FBS 129 Continue Lantus 10 units HS Lispro 5 units TID with meals & SSI Accucheck ACHS hypolycemic protocol (9) Pressure ulcer of sacral region: Qualifiers: Pressure injury stage: unspecified pressure injury stage Qualified Code(s): L89.159 - Pressure ulcer of sacral region, unspecified stage Code(s): L89.159 - Pressure ulcer of sacral region, unspecified stage Status: Chronic Assessment and Plan: Currently receiving Meropenem for UTI Previous culture 01/11/24 with Enterobacter sensitive to meropenem needs treatment this was discontinued at [facility] in an attempt to get a bone biopsy off antibiotic Bone biopsy was not completed due to patient stating it was to painful PICC was removed and they did not continue IV ABX Currently holding on 6 week ertapenem IV since bone scan showed no progression this could only exacerbate patient's C diff follows with dr. Roman O/P/ we will verify with Dr. Roman regarding IV antibiotics prior to discharge ID at [place] recommended 6 weeks IV Invanz (per Dr. Roman's outpatient notes) Wound consulted Q2 turns Plan Code status: Full code per patient DVT prophylaxis: Lovenox Stress ulcer prophylaxis: Protonix 40 daily PT/OT notes: PT/OT pending need assistance with bed to chair transfers Disposition: patient continues admission for treatment of ESBL UTI as well as
[2024-02-16 08:19] LABS: Glucose Point of Care 101 mg/dl (65-105)
[2024-02-16 08:43] LABS: Hematocrit 31.7 % (37.0-47.0); Hemoglobin 10.3 g/dL (12.0-15.0); Mean Corpuscular HGB Conc 32.5 g/dl (32-36); Mean Corpuscular Hemoglobin 30.7 pg (26-34); Mean Corpuscular Volume 94.6 fl (80-100); Mean Platelet Volume 10.1 fl (7.4-10.4); Platelet Count Result 207 k/mm3 (150-375); Red Blood Count 3.35 M/mm3 (4.2-5.4); Red Cell Distribution Width 13.6 % (11.5-14.5); White Blood Count 5.1 K/mm3 (4.5-10.0)
[2024-02-16 09:01] LABS: Alanine Aminotransferase 50 U/L (6-35); Albumin Level 3.7 g/dL (3.5-5.1); Alkaline Phosphatase 101 U/L (38-126); Anion Gap 8 mmol/L (4-12); Aspartate Amino Transferase 36 U/L (14-36); Bilirubin,Total 0.2 mg/dL (0.2-1.3); Blood Urea Nitrogen 33 mg/dL (7-17); Calcium 9.3 mg/dL (8.4-10.2); Carbon Dioxide 24 mmol/L (22-30); Chloride 104 mmol/L (98-107); Estimated CRCL calculation 112 ml/min; Estimated Glomerular Filt Rate > 60; Glucose 111 mg/dL (65-110); Potassium 4.3 mmol/L (3.4-5.0); Sodium 136 mmol/L (137-145)
[2024-02-16] MEDS: ASPIRIN 81 MG CHEWABLE TABLET PO (09:10)
[2024-02-16] MEDS: CITALOPRAM HYDROBROMIDE 10 MG TABLET PO (09:10)
[2024-02-16] MEDS: FIDAXOMICIN 200 MG TABLET PO ×2 (09:10→20:51)
[2024-02-16] MEDS: GABAPENTIN 300 MG CAPSULE 600 MG PO ×3 (09:10→17:53)
[2024-02-16] MEDS: MICONAZOLE NITRATE 2% CREAM 30 GM TUBE 1 APPLIC TOPICAL ×2 (09:11→20:53)
[2024-02-16 11:52] LABS: Glucose Point of Care 147 mg/dl (65-105)
[2024-02-16] MEDS: oxyBUTYnin CHLORIDE XL 5 MG TAB.ER.24 PO (12:15)
[2024-02-16] MEDS: INSULIN ASPART (*BKC) 100 UNITS/ML SUB-Q (12:17)
[2024-02-16 14:00] VITALS: BP 150/72; PULSE 121; RESP 14; TEMP 36.6; O2SAT 100
[2024-02-16] MEDS: oxyCODONE/ACETAMINOPHEN (*CRX) 5-325 MG TABLET 1 TABLET PO ×2 (14:26→20:51)
[2024-02-16 17:01] LABS: Glucose Point of Care 139 mg/dl (65-105)
--- NOTE | 2024-02-16 19:00 | PC.NURSE ---
Patient stated that their bladder had felt full and uncomfortable. Patient had very little output post catheter removal at 1215. @1800 bladder was scanned and noted to have >696ml in bladder. Catheter replaced per provider order.
[2024-02-16 20:14] LABS: Glucose Point of Care 157 mg/dl (65-105)
[2024-02-16] MEDS: traZODone HCL 50 MG TABLET 100 MG PO (20:50)
[2024-02-16] MEDS: ATORVASTATIN 20 MG TABLET PO (20:51)
[2024-02-16] MEDS: NORTRIPTYLINE HCL 10 MG CAPSULE PO (20:51)
[2024-02-16] MEDS: MELATONIN 5 MG TABLET 10 MG PO (20:51)
[2024-02-16] MEDS: INSULIN GLARGINE (*BKC) 100 UNITS/ML 10 UNITS SUB-Q (20:52)
[2024-02-16] MEDS: ENOXAPARIN 40 MG/0.4 ML SYRINGE SUB-Q (20:52)
[2024-02-16 20:58] VITALS: BP 117/61; PULSE 100; RESP 18; TEMP 36.1; O2SAT 91
[2024-02-17] MEDS: oxyCODONE/ACETAMINOPHEN (*CRX) 5-325 MG TABLET 1 TABLET PO ×4 (01:12→20:48)
[2024-02-17] MEDS: HYDROmorphone HCL INJ (*CRX) 1 MG/ML SYR IV PUSH ×4 (01:13→20:49)
[2024-02-17 04:56] LABS: Hematocrit 29.3 % (37.0-47.0); Hemoglobin 9.5 g/dL (12.0-15.0); Mean Corpuscular HGB Conc 32.4 g/dl (32-36); Mean Corpuscular Hemoglobin 30.7 pg (26-34); Mean Corpuscular Volume 94.8 fl (80-100); Mean Platelet Volume 10.6 fl (7.4-10.4); Platelet Count Result 185 k/mm3 (150-375); Red Blood Count 3.09 M/mm3 (4.2-5.4); Red Cell Distribution Width 13.7 % (11.5-14.5); White Blood Count 4.9 K/mm3 (4.5-10.0)
[2024-02-17 05:09] LABS: Alanine Aminotransferase 56 U/L (6-35); Albumin Level 3.5 g/dL (3.5-5.1); Alkaline Phosphatase 99 U/L (38-126); Anion Gap 7 mmol/L (4-12); Aspartate Amino Transferase 44 U/L (14-36); Bilirubin,Total 0.2 mg/dL (0.2-1.3); Blood Urea Nitrogen 40 mg/dL (7-17); Calcium 9.4 mg/dL (8.4-10.2); Carbon Dioxide 24 mmol/L (22-30); Chloride 106 mmol/L (98-107); Estimated CRCL calculation 99 ml/min; Estimated Glomerular Filt Rate > 60; Glucose 142 mg/dL (65-110); Potassium 4.2 mmol/L (3.4-5.0); Sodium 137 mmol/L (137-145)
[2024-02-17 06:00] VITALS: BP 115/53; PULSE 94; RESP 18; TEMP 36.6; O2SAT 99
[2024-02-17 08:02] LABS: Glucose Point of Care 123 mg/dl (65-105)
[2024-02-17] MEDS: CITALOPRAM HYDROBROMIDE 10 MG TABLET PO (09:31)
[2024-02-17] MEDS: oxyBUTYnin CHLORIDE XL 5 MG TAB.ER.24 PO (09:31)
[2024-02-17] MEDS: FIDAXOMICIN 200 MG TABLET PO ×2 (09:32→20:48)
[2024-02-17] MEDS: MICONAZOLE NITRATE 2% CREAM 30 GM TUBE 1 APPLIC TOPICAL ×2 (09:32→20:52)
[2024-02-17] MEDS: GABAPENTIN 300 MG CAPSULE 600 MG PO ×3 (09:32→16:57)
[2024-02-17] MEDS: ASPIRIN 81 MG CHEWABLE TABLET PO (09:32)
[2024-02-17 12:01] LABS: Glucose Point of Care 121 mg/dl (65-105)
--- NOTE | 2024-02-17 12:24 | WPDURCON ---
Assessment and Plan Assessment and plan (1) Neurogenic bladder: Code(s): N31.9 - Neuromuscular dysfunction of bladder, unspecified Status: Acute Assessment and Plan: Secondary to her spinal stroke. Have discussed urodynamics as outpatient but this will not change our management at this point time. Have recommended her or her to learn intermittent catheterization if that is an option. Will have her nurse practitioner come by tomorrow to discuss further. If nursing staff in patient is unable to teach them then they will need to come to the office at some point time for the instruction. (2) UTI (urinary tract infection): Code(s): N39.0 - Urinary tract infection, site not specified Status: Acute Assessment and Plan: Treat as per sensitivities. Recommend that they irrigate Marcos 2 to 3 times a week with a mixture of 75 cc of sterile water with 25 cc of white vinegar. Urology Consult Note HPI Date Seen: 02/17/24 Time Seen: 12:25 Requesting Physician: SEBASTIÁN Brady Primary Care Provider: Anjum Araiza, Consult Narrative Reason for consult: Urinary retention Narrative: Jill Villa is a 43 year old female who suffered a spinal stroke in May of 2023. She has had an indwelling Marcos since that time and states that it has been changed by her friend who was then nurse. She is now admitted for UTI/osteomyelitis but also was found to be COVID positive as well as have C diff. she had the Marcos catheter removed yesterday but failed her voiding trial. Review of Systems Review of Systems: All systems reviewed & are unremarkable except as noted in HPI and below PMFSH Past Medical History Medical History Abnormality of rectum Aortic thrombus Clostridium difficile diarrhea Deep venous thrombosis Diabetic peripheral neuropathy Hyperlipidemia Intractable nausea and vomiting Ischemic colitis Neurogenic bladder Paraplegia Spinal cord stroke Type 1 diabetes mellitus Surgical History Surgical History History of aorto-femoral bypass [facility] Family History Family History Mother Acute myocardial infarction Diabetes mellitus Hypertension Father History of blood clots Social History Social History Social History: Surrogate medical decision maker: Ml Aguilar, mother. Code status: Full code. Smoking packs per day: 1 Smoking cigarettes per day: 20.0 Years smoked: 25 Smoking pack-years: 25.00 Smoking status: Current every day smoker Tobacco type: cigarettes Second hand tobacco smoke exposure: No Alcohol intake: never Substance use: former Substance use type: marijuana Other substance usage details: daily Last use: 02/09/24 Do You Feel Safe in your Home?: Yes Lack of Transportation: No Lack of Food: Never True Current Housing: I Have Housing Concerned About Future Housing: No Difficulty Paying Gas/Electric Bills: No Difficulty Paying for Meds: No Currently Unemployed: No Education: High School Diploma/GED Difficulty w/ Childcare or Family Care: No Additional living arrangements comments: Lives with spouse and children in [place]. Spiritual care concerns: No Meds Home Medications and Allergies Home Medications Medication Instructions Recorded Confirmed Type atorvastatin 20 mg tablet 20 mg PO HS 11/10/23 02/10/24 History trazodone 100 mg tablet 100 mg PO HS 11/10/23 02/10/24 History insulin glargine 100 unit/mL (3 36 unit (0.36 mL) subcut HS #3 mL 11/21/23 02/10/24 Rx mL) subcutaneous pen (Lantus Solostar U-100 Insulin) insulin lispro 100 unit/mL 10 unit (0.1 mL) subcut AC #15 mL 11/21/23 02/10/24 Rx subcutaneous pen (Humalog KwikPen (
--- NOTE | 2024-02-17 12:31 | P.PNIM_ITS ---
Progress Note: A&P Assessment and Plan (1) UTI (urinary tract infection): Code(s): N39.0 - Urinary tract infection, site not specified Status: Acute Assessment and Plan: * Catheter associated * Resistant Klebsiella * Continue Meropenem through 02/16 * Missed outpatient appt with Dr. Dewitt due to hospitalization and would like to discuss catheter removal with him prior to discharge 02/17/24: * Dr. Fernandez to evaluate today for urology and make recommendations. * Last day of Meropenem for ESBL UTI. (2) Clostridium difficile enterocolitis: Code(s): A04.72 - Enterocolitis due to Clostridium difficile, not specified as recurrent Status: Acute Assessment and Plan: * 02/15/24: Switch from vancomycin po to Dificid * Note that diarrhea stopped while not taking vancomycin and resume when vancomycin was restarted * 02/17/24: Continue Dificid. (3) Osteomyelitis: Code(s): M86.9 - Osteomyelitis, unspecified Status: Acute Assessment and Plan: * Currently receiving Meropenem for UTI * Previous culture 01/11/24 with Enterobacter sensitive to meropenem needs treatment this was discontinued at [facility] in an attempt to get a bone biopsy off antibiotic * Bone biopsy was not completed due to patient stating it was to painful * PICC was removed and they did not continue IV ABX * Currently holding on 6 week ertapenem IV since bone scan showed no progression this could only exacerbate patient's C diff * follows with dr. Roman O/P/ we will verify with Dr. Roman regarding IV antibiotics prior to discharge * ID at [place] recommended 6 weeks IV Invanz (per Dr. Roman's outpatient notes) * Wound consulted * Q2 turns 02/17/24: * Awaiting consult and recommendations of Gen Noriega regarding treatment with IV abx of Invanz as outpt for 6 weeks or for other recommendations. * Continue turning Q2 hours to offload pressure. 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 - Acute infarction of spinal cord (embolic) (nonembolic) Status: Chronic Assessment and Plan: * With paraplegia that is improving * Pain helped by gabapentin and topical lidocaine (6) Neurogenic bladder: Code(s): N31.9 - Neuromuscular dysfunction of bladder, unspecified Status: Acute Assessment and Plan: * Urology to evaluate re: catheter removal (7) Diabetic peripheral neuropathy: Code(s): E11.42 - Type 2 diabetes mellitus with diabetic polyneuropathy Status: Acute Assessment and Plan: * Gabapentin and lidocaine helping pain (8) Type 1 diabetes mellitus: Code(s): E10.9 - Type 1 diabetes mellitus without complications Status: Chronic Assessment and Plan: * 02/14 FBS 129 * [place]
--- NOTE | 2024-02-17 12:31 | PM.IMPN ---
Progress Note: A&P Assessment and Plan (1) UTI (urinary tract infection): Code(s): N39.0 - Urinary tract infection, site not specified Status: Acute Assessment and Plan: Catheter associated Resistant Klebsiella Continue Meropenem through 02/16 Missed outpatient appt with Dr. Dewitt due to hospitalization and would like to discuss catheter removal with him prior to discharge 02/17/24: Dr. Fernandez to evaluate today for urology and make recommendations. Last day of Meropenem for ESBL UTI. (2) Clostridium difficile enterocolitis: Code(s): A04.72 - Enterocolitis due to Clostridium difficile, not specified as recurrent Status: Acute Assessment and Plan: 02/15/24: Switch from vancomycin po to Dificid Note that diarrhea stopped while not taking vancomycin and resume when vancomycin was restarted 02/17/24: Continue Dificid. (3) Osteomyelitis: Code(s): M86.9 - Osteomyelitis, unspecified Status: Acute Assessment and Plan: Currently receiving Meropenem for UTI Previous culture 01/11/24 with Enterobacter sensitive to meropenem needs treatment this was discontinued at [facility] in an attempt to get a bone biopsy off antibiotic Bone biopsy was not completed due to patient stating it was to painful PICC was removed and they did not continue IV ABX Currently holding on 6 week ertapenem IV since bone scan showed no progression this could only exacerbate patient's C diff follows with dr. Roman O/P/ we will verify with Dr. Roman regarding IV antibiotics prior to discharge ID at [facility] recommended 6 weeks IV Invanz (per Dr. Roman's outpatient notes) Wound consulted Q2 turns 02/17/24: Awaiting consult and recommendations of Gen [facility] regarding treatment with IV abx of Invanz as outpt for 6 weeks or for other recommendations. Continue turning Q2 hours to offload pressure. 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 - Acute infarction of spinal cord (embolic) (nonembolic) Status: Chronic Assessment and Plan: With paraplegia that is improving Pain helped by gabapentin and topical lidocaine (6) Neurogenic bladder: Code(s): N31.9 - Neuromuscular dysfunction of bladder, unspecified Status: Acute Assessment and Plan: Urology to evaluate re: catheter removal (7) Diabetic peripheral neuropathy: Code(s): E11.42 - Type 2 diabetes mellitus with diabetic polyneuropathy Status: Acute Assessment and Plan: Gabapentin and lidocaine helping pain (8) Type 1 diabetes mellitus: Code(s): E10.9 - Type 1 diabetes mellitus without complications Status: Chronic Assessment and Plan: 02/14 FBS 129 Continue Lantus 10 units HS Lispro 5 units TID with meals & SSI Accucheck ACHS hypolycemic protocol (9) Pressure ulcer of sacral region: Qualifiers: Pressure injury stage: unspecified pressure injury stage Qualified Code(s): L89.159 - Pressure ulcer of sacral region, unspecified stage Code(s): L89.159 - Pressure ulcer of sacral region, unspecified stage Status: Chronic Assessment and Plan: Currently receiving Meropenem for UTI Previous culture 01/11/24 with Enterobacter sensitive to meropenem needs treatment this was discontinued at [facility] in an attempt to get a bone biopsy off antibiotic Bone biopsy was not completed due to patient stating it was to painful PICC was removed and they did not continue IV ABX Currently holding on 6 week ertapenem IV since bone scan showed no progression this could only exacerbate patient's C diff follows with dr. Roman O/P/ we will verify with Dr. Roman regarding IV antibiotics prior to discharge ID at [facility] recommended 6 weeks IV Invanz (per
[2024-02-17 14:00] VITALS: BP 125/49; PULSE 79; RESP 14; TEMP 36.3; O2SAT 100
[2024-02-17 17:31] LABS: Glucose Point of Care 241 mg/dl (65-105)
[2024-02-17] MEDS: INSULIN ASPART (*BKC) 100 UNITS/ML SUB-Q ×3 (17:49→22:12)
[2024-02-17 20:03] VITALS: BP 113/55; PULSE 71; RESP 20; TEMP 36.5; O2SAT 100
[2024-02-17] MEDS: ENOXAPARIN 40 MG/0.4 ML SYRINGE SUB-Q (20:47)
[2024-02-17] MEDS: ATORVASTATIN 20 MG TABLET PO (20:47)
[2024-02-17] MEDS: traZODone HCL 50 MG TABLET 100 MG PO (20:48)
[2024-02-17] MEDS: MELATONIN 5 MG TABLET 10 MG PO (20:48)
[2024-02-17] MEDS: NORTRIPTYLINE HCL 10 MG CAPSULE PO (20:48)
[2024-02-17 21:35] LABS: Glucose Point of Care 265 mg/dl (65-105)
[2024-02-17] MEDS: INSULIN GLARGINE (*BKC) 100 UNITS/ML 10 UNITS SUB-Q (22:10)
[2024-02-18] MEDS: oxyCODONE/ACETAMINOPHEN (*CRX) 5-325 MG TABLET 1 TABLET PO ×3 (02:10→12:24)
[2024-02-18] MEDS: HYDROmorphone HCL INJ (*CRX) 1 MG/ML SYR IV PUSH ×2 (02:19→08:34)
[2024-02-18 04:51] VITALS: BP 103/52; PULSE 84; RESP 18; TEMP 36.5; O2SAT 97
[2024-02-18 06:45] LABS: Hematocrit 30.9 % (37.0-47.0); Hemoglobin 9.7 g/dL (12.0-15.0); Mean Corpuscular HGB Conc 31.4 g/dl (32-36); Mean Corpuscular Hemoglobin 30.4 pg (26-34); Mean Corpuscular Volume 96.9 fl (80-100); Platelet Count Result 179 k/mm3 (150-375); Red Blood Count 3.19 M/mm3 (4.2-5.4); Red Cell Distribution Width 13.4 % (11.5-14.5); White Blood Count 4.9 K/mm3 (4.5-10.0)
[2024-02-18 06:47] LABS: Alanine Aminotransferase 57 U/L (6-35); Albumin Level 3.4 g/dL (3.5-5.1); Alkaline Phosphatase 86 U/L (38-126); Anion Gap 8 mmol/L (4-12); Aspartate Amino Transferase 33 U/L (14-36); Bilirubin,Total 0.2 mg/dL (0.2-1.3); Blood Urea Nitrogen 41 mg/dL (7-17); Calcium 9.1 mg/dL (8.4-10.2); Carbon Dioxide 23 mmol/L (22-30); Chloride 105 mmol/L (98-107); Estimated CRCL calculation 129 ml/min; Estimated Glomerular Filt Rate > 60; Glucose 117 mg/dL (65-110); Potassium 4.7 mmol/L (3.4-5.0); Sodium 136 mmol/L (137-145)
[2024-02-18 08:09] LABS: Glucose Point of Care 130 mg/dl (65-105)
[2024-02-18] MEDS: GABAPENTIN 300 MG CAPSULE 600 MG PO ×2 (08:32→12:24)
[2024-02-18] MEDS: FIDAXOMICIN 200 MG TABLET PO (08:32)
[2024-02-18] MEDS: ASPIRIN 81 MG CHEWABLE TABLET PO (08:32)
[2024-02-18] MEDS: CITALOPRAM HYDROBROMIDE 10 MG TABLET PO (08:32)
[2024-02-18] MEDS: MICONAZOLE NITRATE 2% CREAM 30 GM TUBE 1 APPLIC TOPICAL (08:33)
[2024-02-18] MEDS: oxyBUTYnin CHLORIDE XL 5 MG TAB.ER.24 PO (08:33)
--- NOTE | 2024-02-18 09:19 | WPDUROPN2 ---
Progress Note: A&P Assessment and Plan (1) Neurogenic bladder: Code(s): N31.9 - Neuromuscular dysfunction of bladder, unspecified Status: Acute Assessment and Plan: Secondary to her spinal stroke. A successful void trial this admission and Marcos catheter replaced. Continue with Marcos catheter on discharge. Will plan for intermittent catheterization education as an outpatient (2) UTI (urinary tract infection): Code(s): N39.0 - Urinary tract infection, site not specified Status: Acute Assessment and Plan: Urine culture with resistant Klebsiella pneumoniae. Completed course of meropenem Subjective Subjective Date/Time Seen: 02/18/24 09:19 Interval history: She is feeling well today. Reports no issues with Marcos catheter. Denies nausea, vomiting, fever, chills Review of Systems Review of Systems: All systems reviewed & are unremarkable except as noted in HPI and below Exam Narrative: General: Awake, alert, comfortable, no acute distress HEENT: Normocephalic, atraumatic, sclerae anicteric Respiratory: Normal respiratory effort, no accessory muscle use : Marcos catheter draining clear yellow urine Skin: Normal coloration, warm and dry Neurologic: No focal neuro deficits noted Psychiatric: Appropriate mood and affect, judgment and insight intact Objective Data Vital Signs Vital Signs: Vital Signs - 24 hr 02/17/24 09:30 02/17/24 11:31 02/17/24 14:00 Temperature 97.4 F L Pulse Rate 79 Respiratory Rate 14 Blood Pressure 125/49 L Pulse Oximetry 100 Oxygen Delivery Room Air Room Air 02/17/24 20:03 02/17/24 20:47 02/18/24 04:51 Temperature 97.7 F 97.7 F Pulse Rate 71 84 Respiratory Rate 20 18 Blood Pressure 113/55 L 103/52 L Pulse Oximetry 100 97 Oxygen Delivery Room Air Intake/Output Intake/Output: Intake & Output 02/15/24 02/16/24 02/17/24 02/18/24 23:59 23:59 23:59 23:59 Intake Total 2440 3390 4460 390 Output Total 4250 1850 3950 1200 Balance -1810 1540 510 -810 Meds/Results Medications: Active Medications Generic Name Dose Route Start Last Admin Trade Name Freq PRN Reason Stop Dose Admin Aspirin 81 mg 02/10/24 09:00 02/18/24 08:32 Aspirin 81 Mg Chewable Tablet PO 81 mg DAILY SUSANNE Administration Atorvastatin Calcium 20 mg 02/10/24 21:00 02/17/24 20:47 Atorvastatin 20 Mg Tablet PO 20 mg HS SUSANNE Administration Citalopram Hydrobromide 10 mg 02/10/24 09:00 02/18/24 08:32 Citalopram Hydrobromide 10 Mg Tablet PO 10 mg QAM SUSANNE Administration Dextrose 12.5 gm 02/10/24 08:37 Dextrose 50% 25 Gm/50 Ml Syringe IV PUSH PRN PRN Hypoglycemia Protocol Enoxaparin Sodium 40 mg 02/14/24 21:00 02/17/24 20:47 Enoxaparin 40 Mg/0.4 Ml Syringe SUB-Q 40 mg HS SUSANNE Administration Fidaxomicin 200 mg 02/15/24 21:00 02/18/24 08:32 Fidaxomicin 200 Mg Tablet PO 200 mg Q12HR SUSANNE Administration Gabapentin 600 mg 02/14/24 17:00 02/18/24 08:32 Gabapentin 300 Mg Capsule PO 600 mg TID SUSANNE Administration Glucagon 1 mg 02/10/24 08:37 Glucagon For Inj 1 Mg Vial IM PRN PRN Hypoglycemia Protocol Glucose 15 gm 02/10/24 08:37 Glucose Oral Gel 15 Gm Of Glucse In 37.5 Gm Tube PO PRN PRN Hypoglycemia Protocol Hydromorphone HCl 1 mg 02/16/24 12:48 02/18/24 08:34 Hydromorphone Hcl Inj (*Crx) 1 Mg/Ml Syr IV PUSH 1 mg Q6H PRN Administration Pain Rated 7-10 Dextrose 1,000 mls @ 100 mls/hr 02/10/24 08:37 Dextrose 5% 1,000 Ml IVPB PRN PRN Hypoglycemia Protocol Insulin Aspart 2 - 5 units 02/10/24 12:00 02/18/24 08:32 Insulin Aspart (*Bkc) 100 Units/Ml SUB-Q Not Given TIDWM SUSNANE Protocol Insulin Aspart 1 - 2 units 02/10/24 21:00 02/17/24 22:12 Insulin Aspart (*Bkc) 100 Units/Ml SUB-Q 1 units HS SUSANNE Administration Protocol Insulin Aspart 5 units 02/10/24 12:00
--- NOTE | 2024-02-18 11:41 | P.DS_ITS ---
DS: Admitting Diagnosis Discharge Date 02/18/2024 Admitting Diagnosis UTI with ESBL/ severe like pain/ C diff DS: Discharge Diagnosis Discharge Diagnosis (1) UTI (urinary tract infection): Code(s): N39.0 - Urinary tract infection, site not specified Status: Acute Assessment and Plan: * Catheter associated * Resistant Klebsiella * Continue Meropenem through 02/16 * Missed outpatient appt with Dr. Dewitt due to hospitalization and would like to discuss catheter removal with him prior to discharge (2) Clostridium difficile enterocolitis: Code(s): A04.72 - Enterocolitis due to Clostridium difficile, not specified as recurrent Status: Acute Assessment and Plan: * 02/15/24: Switch from vancomycin po to Dificid * Note that diarrhea stopped while not taking vancomycin and resume when vancomycin was restarted (3) Osteomyelitis: Code(s): M86.9 - Osteomyelitis, unspecified Status: Acute Assessment and Plan: * Currently receiving Meropenem for UTI * Previous culture 01/11/24 with Enterobacter sensitive to meropenem needs treatment this was discontinued at [facility] in an attempt to get a bone biopsy off antibiotic * Bone biopsy was not completed due to patient stating it was to painful * PICC was removed and they did not continue IV ABX * Currently holding on 6 week ertapenem IV since bone scan showed no progression this could only exacerbate patient's C diff * follows with dr. Roman O/P/ we will verify with Dr. Roman regarding IV antibiotics prior to discharge * ID at [facility] recommended 6 weeks IV Invanz (per Dr. Roman's outpatient notes) * Wound consulted * Q2 turns 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 - Acute infarction of spinal cord (embolic) (nonembolic) Status: Chronic Assessment and Plan: * With paraplegia that is improving * Pain helped by gabapentin and topical lidocaine (6) Neurogenic bladder: Code(s): N31.9 - Neuromuscular dysfunction of bladder, unspecified Status: Acute Assessment and Plan: * Urology to evaluate re: catheter removal (7) Diabetic peripheral neuropathy: Code(s): E11.42 - Type 2 diabetes mellitus with diabetic polyneuropathy Status: Acute Assessment and Plan: * Gabapentin and lidocaine helping pain (8) Type 1 diabetes mellitus: Code(s): E10.9 - Type 1 diabetes mellitus without complications Status: Chronic Assessment and Plan: * 02/14 FBS 129 * Continue Lantus 10 units HS * Lispro 5 units TID with meals & SSI * Accucheck ACHS * hypolycemic protocol (9)
--- NOTE | 2024-02-18 11:41 | PM.DS ---
DS: Admitting Diagnosis Discharge Date 02/18/2024 Admitting Diagnosis UTI with ESBL/ severe like pain/ C diff DS: Discharge Diagnosis Discharge Diagnosis (1) UTI (urinary tract infection): Code(s): N39.0 - Urinary tract infection, site not specified Status: Acute Assessment and Plan: Catheter associated Resistant Klebsiella Continue Meropenem through 02/16 Missed outpatient appt with Dr. Dewitt due to hospitalization and would like to discuss catheter removal with him prior to discharge (2) Clostridium difficile enterocolitis: Code(s): A04.72 - Enterocolitis due to Clostridium difficile, not specified as recurrent Status: Acute Assessment and Plan: 02/15/24: Switch from vancomycin po to Dificid Note that diarrhea stopped while not taking vancomycin and resume when vancomycin was restarted (3) Osteomyelitis: Code(s): M86.9 - Osteomyelitis, unspecified Status: Acute Assessment and Plan: Currently receiving Meropenem for UTI Previous culture 01/11/24 with Enterobacter sensitive to meropenem needs treatment this was discontinued at [facility] in an attempt to get a bone biopsy off antibiotic Bone biopsy was not completed due to patient stating it was to painful PICC was removed and they did not continue IV ABX Currently holding on 6 week ertapenem IV since bone scan showed no progression this could only exacerbate patient's C diff follows with dr. Roman O/P/ we will verify with Dr. Roamn regarding IV antibiotics prior to discharge ID at [facility] recommended 6 weeks IV Invanz (per Dr. 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 - Acute infarction of spinal cord (embolic) (nonembolic) Status: Chronic Assessment and Plan: With paraplegia that is improving Pain helped by gabapentin and topical lidocaine (6) Neurogenic bladder: Code(s): N31.9 - Neuromuscular dysfunction of bladder, unspecified Status: Acute Assessment and Plan: Urology to evaluate re: catheter removal (7) Diabetic peripheral neuropathy: Code(s): E11.42 - Type 2 diabetes mellitus with diabetic polyneuropathy Status: Acute Assessment and Plan: Gabapentin and lidocaine helping pain (8) Type 1 diabetes mellitus: Code(s): E10.9 - Type 1 diabetes mellitus without complications Status: Chronic Assessment and Plan: 02/14 FBS 129 Continue Lantus 10 units HS Lispro 5 units TID with meals & SSI Accucheck ACHS hypolycemic protocol (9) Pressure ulcer of sacral region: Qualifiers: Pressure injury stage: unspecified pressure injury stage Qualified Code(s): L89.159 - Pressure ulcer of sacral region, unspecified stage Code(s): L89.159 - Pressure ulcer of sacral region, unspecified stage Status: Chronic Assessment and Plan: Currently receiving Meropenem for UTI Previous culture 01/11/24 with Enterobacter sensitive to meropenem needs treatment this was discontinued at [facility] in an attempt to get a bone biopsy off antibiotic Bone biopsy was not completed due to patient stating it was to painful PICC was removed and they did not continue IV ABX Currently holding on 6 week ertapenem IV since bone scan showed no progression this could only exacerbate patient's C diff follows with dr. Roman O/P/ we will verify with Dr. Roman regarding IV antibiotics prior to discharge ID at [facility] recommended 6 weeks IV Invanz (per Dr. Roman's outpatient notes) Wound consulted Q2 turns Plan Disposition: Discharged to home with home health DS: Summary Hospital Course Hospital Course: 43-year-old female who presents t
[2024-02-18 11:50] LABS: Glucose Point of Care 150 mg/dl (65-105)
[2024-02-18] MEDS: INSULIN ASPART (*BKC) 100 UNITS/ML SUB-Q (12:25)
--- NOTE | 2024-02-18 13:01 | WPDCN ---
Assessment and Plan Assessment and plan (1) Stage IV pressure ulcer of sacral region: Code(s): L89.154 - Pressure ulcer of sacral region, stage 4 Status: Chronic Assessment and Plan: healing wound, do not believe she has active osteomyelitis at this point, as long as wound continues to heal would hold off on IV antibiotics, continue local wound care, follow-up with [facility] HPI Data of Consult Date/Time: 02/17/2024 Requesting Physician: Alexandra Goldman APRN Primary Care Provider: Anjum Araiza, MD Consult Narrative Narrative: Jill Villa is a 43 year old female well known to the Surgical Service for stage IV sacral decubitus ulcer. The patient has been following up with [facility], however compliance has been an issue with follow-ups. The patient has been admitted with UTI. The wound seems to be healing well. There is a question of whether not she needs 6 weeks of IV antibiotics for osteomyelitis of the sacral wound. Upon discussion with the patient, there is a lot of confusion regarding recommendations regarding the wound. The patient reports the wound seems to be healing, however continues to complain of pain in the area. Review of Systems Review of Systems: All systems reviewed & are unremarkable except as noted in HPI and below PMFSH Past Medical History Medical History Abnormality of rectum Aortic thrombus Clostridium difficile diarrhea Deep venous thrombosis Diabetic peripheral neuropathy Hyperlipidemia Intractable nausea and vomiting Ischemic colitis Neurogenic bladder Paraplegia Spinal cord stroke Type 1 diabetes mellitus Surgical History Surgical History History of aorto-femoral bypass [facility] Family History Family History Mother Acute myocardial infarction Diabetes mellitus Hypertension Father History of blood clots Social History Social History Social History: Surrogate medical decision maker: Ml Aguilar, mother. Code status: Full code. Smoking packs per day: 1 Smoking cigarettes per day: 20.0 Years smoked: 25 Smoking pack-years: 25.00 Smoking status: Current every day smoker Tobacco type: cigarettes Second hand tobacco smoke exposure: No Alcohol intake: never Substance use: former Substance use type: marijuana Other substance usage details: daily Last use: 02/09/24 Do You Feel Safe in your Home?: Yes Lack of Transportation: No Lack of Food: Never True Current Housing: I Have Housing Concerned About Future Housing: No Difficulty Paying Gas/Electric Bills: No Difficulty Paying for Meds: No Currently Unemployed: No Education: High School Diploma/GED Difficulty w/ Childcare or Family Care: No Additional living arrangements comments: Lives with spouse and children in [place]. Spiritual care concerns: No Meds Home Medications and Allergies Home Medications Medication Instructions Recorded Confirmed Type atorvastatin 20 mg tablet 20 mg PO HS 11/10/23 02/10/24 History trazodone 100 mg tablet 100 mg PO HS 11/10/23 02/10/24 History insulin glargine 100 unit/mL (3 36 unit (0.36 mL) subcut HS #3 mL 11/21/23 02/10/24 Rx mL) subcutaneous pen (Lantus Solostar U-100 Insulin) insulin lispro 100 unit/mL 10 unit (0.1 mL) subcut AC #15 mL 11/21/23 02/10/24 Rx subcutaneous pen (Humalog KwikPen (U-100) Insulin) melatonin 10 mg tablet 10 mg PO HS 01/12/24 02/10/24 History citalopram 20 mg tablet (Celexa) 10 mg PO QAM #30 tabs 01/17/24 02/10/24 Rx aspirin 81 mg tablet 81 mg PO DAILY 02/10/24 02/10/24 History fidaxomicin 200 mg tablet (Dificid) 200 mg PO Q12HR #8 tabs 02/18/24 Rx gabapentin 300 mg capsule 600 mg PO TID #90 caps 02/18/24 Rx (Neurontin)
== END 2024-02-18 13:45 | disposition home health service (06) | DRG 698 ==
LOC: ANHED 02-10 00:03 → ANH2MED 02-10 04:23
PROVIDERS: Internal Medicine; Nurse Practitioner Acute Care; Nurse Practitioner Adult Health; Admitting Provider Internal Medicine; Emergency Provider Emergency Medicine; PCP Family Medicine; Visit Provider Nurse Practitioner Family
DX: T83.518A Infection and inflammatory reaction due to other urinary catheter, initial encounter (principal); L89.154 Pressure ulcer of sacral region, stage 4; U07.1 COVID-19; N39.0 Urinary tract infection, site not specified; Z16.12 Extended spectrum beta lactamase (ESBL) resistance; M46.28 Osteomyelitis of vertebra, sacral and sacrococcygeal region; A04.72 Enterocolitis due to Clostridium difficile, not specified as recurrent; L97.528 Non-pressure chronic ulcer of other part of left foot with other specified severity; L97.518 Non-pressure chronic ulcer of other part of right foot with other specified severity; I69.369 Other paralytic syndrome following cerebral infarction affecting unspecified side; B96.1 Klebsiella pneumoniae [K. pneumoniae] as the cause of diseases classified elsewhere; E10.69 Type 1 diabetes mellitus with other specified complication; E10.42 Type 1 diabetes mellitus with diabetic polyneuropathy; E78.5 Hyperlipidemia, unspecified; F17.210 Nicotine dependence, cigarettes, uncomplicated; N31.9 Neuromuscular dysfunction of bladder, unspecified; Z79.4 Long term (current) use of insulin; Z86.718 Personal history of other venous thrombosis and embolism; Z99.3 Dependence on wheelchair; Z88.0 Allergy status to penicillin; Z95.1 Presence of aortocoronary bypass graft; Z79.82 Long term (current) use of aspirin
CPT/HCPCS: 36415; 78315; 80048; 80053; 81001; 82550; 82948; 83690; 84703; 85025; 85027; 85652; 86140; 87040; 87077; 87086; 87088; 87186; 87636; 93970; 96365; 96366; 96367; 96372; 96374; 96375; 96376; 97162; 97165; 97535; 99285; A9270; A9503; G0378; J1170; J1644; J1650; J1815; J2185; J2270; J2405; J3370

== ENCOUNTER 2024-02-25 00:27 | Observation (INO) | payer OTHER, MEDICAID, SELFPAY ==
[2024-02-25] VITALS (7 sets, daily range): BP systolic 103–146; BP diastolic 51–81; PULSE 75–91; RESP 15–18; TEMP 36.1–36.6; O2SAT 98–100
[2024-02-25 02:08] LABS: Basophils Absolute Auto 0.1 K/mm3 (0.0-0.1); Basophils Percent Auto 0.6 % (0.2-1.2); Eosinophils Absolute Auto 0.2 K/mm3 (0-0.3); Eosinophils Percent Auto 2.6 % (0-4.4); Hematocrit 33.2 % (37.0-47.0); Hemoglobin 10.8 g/dL (12.0-15.0); Immature Granulocyte Absolute 0.03 K/mm3 (0.00-0.031); Immature Granulocyte Percent A 0.4 % (0-0.5); Lymphocytes Absolute Auto 2.26 K/mm3 (0.9-3.2); Lymphocytes Percent Auto 27.8 % (18.3-44.2); Mean Corpuscular HGB Conc 32.5 g/dl (32-36); Mean Corpuscular Hemoglobin 30.7 pg (26-34); Mean Corpuscular Volume 94.3 fl (80-100); Mean Platelet Volume 10.1 fl (7.4-10.4); Monocytes Absolute Auto 0.4 K/mm3 (0.1-0.6); Monocytes Percent Auto 4.7 % (2.6-8.5); Neutrophils Absolute Auto 5.2 K/mm3 (1.3-6.7); Neutrophils Percent Auto 63.9 % (45.5-73.1); Platelet Count Result 219 k/mm3 (150-375); Red Blood Count 3.52 M/mm3 (4.2-5.4); Red Cell Distribution Width 13.5 % (11.5-14.5); White Blood Count 8.1 K/mm3 (4.5-10.0)
[2024-02-25] MEDS: SODIUM CHLORIDE 0.9% IV 1,000 ML 999 ML IV CONT (02:20)
[2024-02-25] MEDS: ONDANSETRON INJ 4 MG/2 ML VIAL IV PUSH (02:20)
[2024-02-25] MEDS: MORPHINE SULFATE (*CRX) 4 MG/ML INJ IV PUSH ×2 (02:20→04:37)
[2024-02-25 02:23] LABS: Anion Gap 8 mmol/L (4-12); Blood Urea Nitrogen 21 mg/dL (7-17); Carbon Dioxide 24 mmol/L (22-30); Chloride 105 mmol/L (98-107); Estimated CRCL calculation 112 ml/min; Potassium 4.3 mmol/L (3.4-5.0); Sodium 137 mmol/L (137-145)
[2024-02-25 02:24] LABS: Alanine Aminotransferase 76 U/L (6-35); Albumin Level 3.9 g/dL (3.5-5.1); Alkaline Phosphatase 102 U/L (38-126); Aspartate Amino Transferase 48 U/L (14-36); Bilirubin,Total 0.1 mg/dL (0.2-1.3); Calcium 9.7 mg/dL (8.4-10.2); Estimated Glomerular Filt Rate > 60; Glucose 159 mg/dL (65-110)
--- NOTE | 2024-02-25 03:13 | ED.FEMALEGU ---
HPI - Female Genitourinary General Chief complaint: Urogenital-Female <Slime Vidal APRN - Last Filed: 02/25/24 04:10> Stated complaint: UTI, weakness, burning with urination <Slime Vidal APRN - Last Filed: 02/25/24 04:10> Time Seen by Provider: 02/25/24 00:44 <Slime Vidal APRN - Last Filed: 02/25/24 04:10> Source: patient <Slime Vidal APRN - Last Filed: 02/25/24 04:10> Limitations: no limitations <Slime Vidal APRN - Last Filed: 02/25/24 04:10> History of Present Illness HPI Narrative: Patient is a 43-year-old female who presents to the ER with concerns of a urinary tract infection. She has an extensive history of urinary tract infections, as she is a paraplegic and has a Marcos catheter in place at all times. Patient was last admitted to the hospital for UTI within the last couple of weeks and discharged on February 18, 2024. She reports when she gets UTIs she gets leg pain, nausea, and sediment in her Marcos catheter bag. Patient reports she notice sediment in her catheter bag this morning and she is experiencing nausea/leg pain. She also has a history of chronic osteomyelitis, COVID and colitis. Patient denies fevers, chest pain, shortness the breath, increased weakness. <Slime Vidal APRN - Last Filed: 02/25/24 04:10> Related Data Home medications: Home Medications Medication Instructions Recorded Confirmed atorvastatin 20 mg tablet 20 mg PO HS 11/10/23 02/10/24 trazodone 100 mg tablet 100 mg PO HS 11/10/23 02/10/24 melatonin 10 mg tablet 10 mg PO HS 01/12/24 02/10/24 aspirin 81 mg tablet 81 mg PO DAILY 02/10/24 02/10/24 <Slime Vidal APRN - Last Filed: 02/25/24 04:10> Allergies/Adverse reactions: Allergies Allergy/AdvReac Type Severity Reaction Status Date / Time azithromycin Allergy Unknown Hives Verified 02/10/24 05:42 amoxicillin AdvReac Unknown Verified 02/10/24 05:42 <Slime Vidal APRN - Last Filed: 02/25/24 04:10> Review of Systems Review of Systems: All systems reviewed & are unremarkable except as noted in HPI and below <Slime Vidal APRN - Last Filed: 02/25/24 04:10> [facility] Past Medical History Medical History: Medical History Abnormality of rectum Aortic thrombus Clostridium difficile diarrhea Deep venous thrombosis Diabetic peripheral neuropathy Hyperlipidemia Intractable nausea and vomiting Ischemic colitis Neurogenic bladder Paraplegia Spinal cord stroke Type 1 diabetes mellitus <Slime Vidal APRN - Last Filed: 02/25/24 04:10> Surgical History Surgical History: Surgical History History of aorto-femoral bypass [facility] <Slime Vidal APRN - Last Filed: 02/25/24 04:10> Family History Family History: Family History Mother Acute myocardial infarction Diabetes mellitus Hypertension Father History of blood clots <Slime Vidal APRN - Last Filed: 02/25/24 04:10> Social History Social History: Social History Social History: Surrogate medical decision maker: Ml Aguilar, mother. Code status: Full code. Smoking packs per day: 1 Smoking cigarettes per day: 20.0 Years smoked: 25 Smoking pack-years: 25.00 Smoking status: Current every day smoker Tobacco type: cigarettes Second hand tobacco smoke exposure: No Alcohol intake: never Substance use: former Substance use type: marijuana Other substance usage details: daily Last use: 02/09/24 Do You Feel Safe in your Home?: Yes Lack of Transportation: No Lack of Food: Never True Current Housing: I Have Housing Concerned About Future Housing: No Difficulty Paying Gas/Electric Bills: No Difficulty Paying for
[2024-02-25 03:51] LABS: Add Urine Microscopic? YES; Appearance Urine Cloudy (Clear); Bacteria Urine 4+ /hpf; Bilirubin Urine Negative (Negative); Blood Urine Non-Hemolyzed Trace (Negative); Budding Yeast Urine Present /hpf; Color Urine Yellow (Yellow); Glucose Urine UA Negative (Negative); Ketones Urine Negative (Negative); Leukocyte Esterase Ur 1+ LEU/UL (Negative); Need Manual Microscopic Reviewed; Nitrate Urine Positive (Negative); Non Pathogenic Casts 0-2; Protein Urine Negative (Negative); Specific Grav Ur 1.017 (1.001-1.035); Squamous Epithelial Cell Urine None Seen /hpf (Few); Urobilinogen Urine 0.2 mg/dL (<2.0); WBC Urine 21-50 /hpf (0-3); pH Urine 6.5 (5.0-9.0)
[2024-02-25] MEDS: MEROPENEM 1 GM/NS 100 ML 1 GM/100 ML BAG IVPB ×2 (04:18→13:30)
[2024-02-25] MEDS: HYDROmorphone HCL INJ (*CRX) 1 MG/ML SYR IV PUSH (06:51)
[2024-02-25] MEDS: oxyCODONE/ACETAMINOPHEN (*CRX) 5-325 MG TABLET 1 TABLET PO (10:29)
--- NOTE | 2024-02-25 11:49 | PM.IMHP ---
H&P: HPI History of Present Illness Date/Time: 02/25/24 11:49 Chief Complaint: Urinary complaints Narrative: Patient is a 43-year-old female who presents to the ER with concerns of a urinary tract infection. She has an extensive history of urinary tract infections, as she is a paraplegic and has a Marcos catheter in place at all times. Last exchanged in February 16, 2024 while she was here in the hospital. Patient was last admitted to the hospital for UTI within the last couple of weeks and discharged on February 18, 2024. She reports when she gets UTIs she gets leg pain, nausea, and sediment in her Marcos catheter bag. Patient reports she notice sediment in her catheter bag this morning and she is experiencing nausea/leg pain. She also has a history of chronic osteomyelitis, COVID and colitis. Patient denies fevers, chest pain, shortness the breath, increased weakness. Patient was otherwise stable. Vital signs are stable which is he did 3 point platelet of 219 panel was unremarkable urinalysis showed 50 WBC 6-10 positive side esterase nitrate. Budding yeast present. Bacteria present UTI and has been started on meropenem. She was also recently treated for C diff infection due to multiple antibiotic treatment and completed Dificid. She currently denies any diarrhea. Review of Systems Review of Systems: - CONSTITUTIONAL: Denies weight loss, fever and chills. - HEENT: Denies changes in vision and hearing - RESPIRATORY: Denies SOB and cough. - CV: Denies palpitations and CP. - GI: Denies abdominal pain, reports some nausea, denies vomiting and diarrhea. - : Denies dysuria and urinary frequency. - MSK: Reports lower extremity pain which is chronic - SKIN: Denies rash and pruritus. Has chronic decubitus ulcer in the back - NEUROLOGICAL: Denies headache and syncope. - PSYCHIATRIC: Denies recent changes in mood. Denies anxiety and depression. [facility] Past Medical History Medical History Abnormality of rectum Aortic thrombus Clostridium difficile diarrhea Deep venous thrombosis Diabetic peripheral neuropathy Hyperlipidemia Intractable nausea and vomiting Ischemic colitis Neurogenic bladder Paraplegia Spinal cord stroke Type 1 diabetes mellitus Surgical History Surgical History History of aorto-femoral bypass [facility] Family History Family History Mother Acute myocardial infarction Diabetes mellitus Hypertension Father History of blood clots Social History Social History Social History: Surrogate medical decision maker: Ml Aguilar, mother. Code status: Full code. Smoking packs per day: 1.5 Smoking cigarettes per day: 30.0 Years smoked: 24 Smoking pack-years: 36.00 Smoking status: Former smoker Second hand tobacco smoke exposure: No Alcohol intake: never Substance use: former Substance use type: marijuana Other substance usage details: daily Last use: 02/09/24 Do You Feel Safe in your Home?: Yes Lack of Transportation: No Lack of Food: Never True Current Housing: I Have Housing Concerned About Future Housing: No Difficulty Paying Gas/Electric Bills: No Difficulty Paying for Meds: No Currently Unemployed: No Education: High School Diploma/GED Difficulty w/ Childcare or Family Care: No Additional living arrangements comments: Lives with spouse and children in [place]. Spiritual care concerns: No Meds Home Medications and Allergies Home Medications Medication Instructions Recorded Confirmed Type atorvastatin 20 mg tablet 20 mg PO HS 11/10/23 02/25/24 History trazodone 100 mg tablet 100 mg PO HS 11/10/23 02/25/24 History insulin glargine 100 unit/mL (3 36 unit (0.36 mL) subcut HS #3
[2024-02-25] MEDS: GABAPENTIN 300 MG CAPSULE 600 MG PO ×2 (13:36→16:52)
[2024-02-25 14:30] LABS: Hemoglobin A1C 5.7 % (<5.7)
[2024-02-25 15:04] LABS: Glucose Point of Care 127 mg/dl (65-105)
[2024-02-25] MEDS: oxyCODONE HCL (*CRX) 5 MG TAB IR PO ×2 (15:33→20:46)
[2024-02-25 17:27] LABS: Glucose Point of Care 160 mg/dl (65-105)
[2024-02-25] MEDS: ATORVASTATIN 20 MG TABLET PO (20:46)
[2024-02-25] MEDS: traZODone HCL 50 MG TABLET 100 MG PO (20:46)
[2024-02-25] MEDS: MELATONIN 5 MG TABLET 10 MG PO (20:46)
[2024-02-25] MEDS: NORTRIPTYLINE HCL 10 MG CAPSULE PO (20:46)
[2024-02-25] MEDS: INSULIN GLARGINE (*BKC) 100 UNITS/ML 24 UNITS SUB-Q (20:49)
[2024-02-25 21:54] LABS: Glucose Point of Care 144 mg/dl (65-105)
[2024-02-26] MEDS: oxyCODONE HCL (*CRX) 5 MG TAB IR PO ×6 (00:31→20:23)
[2024-02-26 04:38] VITALS: BP 116/68; PULSE 85; RESP 16; TEMP 36.3; O2SAT 100
[2024-02-26 08:31] VITALS: O2SAT 97
[2024-02-26 08:32] VITALS: O2SAT 97
[2024-02-26 09:09] LABS: Glucose Point of Care 108 mg/dl (65-105)
--- NOTE | 2024-02-26 09:16 | PM.IMPN ---
Progress Note: A&P Assessment and Plan (1) Drug (multiple) resistant infection: Status: Acute (2) UTI (urinary tract infection): Code(s): N39.0 - Urinary tract infection, site not specified Status: Acute (3) Opioid dependence: Code(s): F11.20 - Opioid dependence, uncomplicated Status: Acute (4) Depression: Code(s): F32.A - Depression, unspecified Status: Acute (5) Normocytic anemia: Code(s): D64.9 - Anemia, unspecified Status: Acute (6) Urinary tract infection associated with indwelling urethral catheter: Qualifiers: Encounter type: initial encounter Qualified Code(s): T83.511A - Infection and inflammatory reaction due to indwelling urethral catheter, initial encounter; N39.0 - Urinary tract infection, site not specified Code(s): T83.511A - Infection and inflammatory reaction due to indwelling urethral catheter, initial encounter; N39.0 - Urinary tract infection, site not specified Status: Acute (7) Pressure ulcer of sacral region, stage 4: Code(s): L89.154 - Pressure ulcer of sacral region, stage 4 Status: Acute (8) Spinal cord stroke: Code(s): G95.11 - Acute infarction of spinal cord (embolic) (nonembolic) Status: Chronic (9) Paraplegia: Code(s): G82.20 - Paraplegia, unspecified Status: Chronic (10) Neurogenic bladder: Code(s): N31.9 - Neuromuscular dysfunction of bladder, unspecified Status: Acute (11) Diabetic peripheral neuropathy: Code(s): E11.42 - Type 2 diabetes mellitus with diabetic polyneuropathy Status: Acute (12) Type 1 diabetes mellitus: Code(s): E10.9 - Type 1 diabetes mellitus without complications Status: Chronic Plan Patient is a 43-year-old female who presents to the ER with concerns of a urinary tract infection. She has an extensive history of urinary tract infections, as she is a paraplegic and has a Marcos catheter in place at all times. Last exchanged in February 16, 2024 while she was here in the hospital. Patient was last admitted to the hospital for UTI within the last couple of weeks and discharged on February 18, 2024. She reports when she gets UTIs she gets leg pain, nausea, and sediment in her Marcos catheter bag. Patient reports she notice sediment in her catheter bag this morning and she is experiencing nausea/leg pain. She also has a history of chronic osteomyelitis, COVID and colitis. Patient denies fevers, chest pain, shortness the breath, increased weakness. Patient was otherwise stable. Vital signs are stable which is he did 3 point platelet of 219 panel was unremarkable urinalysis showed 50 WBC 6-10 positive side esterase nitrate. Budding yeast present. Bacteria present UTI and has been started on meropenem. She was also recently treated for C diff infection due to multiple antibiotic treatment and completed Dificid. She currently denies any diarrhea. She is supposed to see Urology as an outpatient basis to switch to intermittent catheterization which she is interested in. Urology will be consulted if this can be achieved while she is here I doubt she has really UTI as she is afebrile and WBC count is normal. Await the urine culture. Sacrum decubitus ulcer is stable and will continue on wound care. History of osteomyelitis treated with antibiotics DVT prophylaxis Lovenox status full code Type 1 diabetes on insulin No spinal cord stroke with paresthesia and pain in bilateral lower extremity. Workup revealed aortic disease requiring surgery. She had surgery in [place] in May 2023 complicated with spinal cord stroke resulting in paraplegia long complicated course. 02/25: Urine culture grows Klebsiella pneumonia, pending susceptibility, same bacteria growing as previous culture. consult urologist, need tor change the the catheter. Continue antibiotics May need repeat urine culture, if negative, possible colonization
[2024-02-26] MEDS: ENOXAPARIN 40 MG/0.4 ML SYRINGE SUB-Q (09:19)
[2024-02-26] MEDS: GABAPENTIN 300 MG CAPSULE 600 MG PO ×3 (09:19→16:26)
[2024-02-26] MEDS: CITALOPRAM HYDROBROMIDE 10 MG TABLET PO (09:20)
[2024-02-26] MEDS: ASPIRIN 81 MG ENTERIC TABLET PO (09:20)
[2024-02-26 11:08] VITALS: BMI 23.5
[2024-02-26 12:21] LABS: Glucose Point of Care 168 mg/dl (65-105)
--- NOTE | 2024-02-26 12:23 | WPDURCON ---
Assessment and Plan Assessment and plan (1) Drug (multiple) resistant infection: Status: Acute Assessment and Plan: History of multi drug resistant Klebsiella pneumoniae positive urine cultures. Suspect colonization as she has no symptoms of active UTI. No indication for antibiotics at this time. May benefit from outpatient referral to Infectious Disease for continued monitoring. Would avoid treating with broad spectrum antibiotics unless acutely symptomatic given her history of C. diff (2) Neurogenic bladder: Code(s): N31.9 - Neuromuscular dysfunction of bladder, unspecified Status: Acute Assessment and Plan: Has had chronic indwelling ledbetter. Will plan to transition to intermittent self catheterization 3x/day. Education to be provided and then will arrange follow up in the office for continued monitoring. Urology Consult Note HPI Date Seen: 02/26/24 Requesting Physician: Hung Bear MD Primary Care Provider: Anjum Araiza, Consult Narrative Narrative: Jill Villa is a 43 year old female with a history of a spinal stroke, wheelchair bound, with neurogenic bladder with chronic ledbetter in place who is being seen in consultation for recurrent UTI. She presented to the ER on 02/25/24 with leg pain that she felt was consistent with prior UTIs. UA was abnormal as expected given indwelling ledbetter catheter. Urine culture has grown klebsiella pneumoniae which is consistent with prior urine cultures. Suspect this is due to colonization as she has no acute symptoms. She was recently seen during prior admission 02/16/24 with plans for outpatient follow up to begin intermittent self catheterization. She had an appointment in the office yesterday to initiate this but was not able to attend due to hospitalization. She reports ledbetter catheter irritation and is eager for removal and wishes to begin self catheterization. Review of Systems Review of Systems: All systems reviewed & are unremarkable except as noted in HPI and below PMFSH Past Medical History Medical History Abnormality of rectum Aortic thrombus Clostridium difficile diarrhea Deep venous thrombosis Diabetic peripheral neuropathy Hyperlipidemia Intractable nausea and vomiting Ischemic colitis Neurogenic bladder Paraplegia Spinal cord stroke Type 1 diabetes mellitus Surgical History Surgical History History of aorto-femoral bypass [facility] Family History Family History Mother Acute myocardial infarction Diabetes mellitus Hypertension Father History of blood clots Social History Social History Social History: Surrogate medical decision maker: Ml Aguilar, mother. Code status: Full code. Smoking packs per day: 1.5 Smoking cigarettes per day: 30.0 Years smoked: 24 Smoking pack-years: 36.00 Smoking status: Former smoker Second hand tobacco smoke exposure: No Alcohol intake: never Substance use: former Substance use type: marijuana Other substance usage details: daily Last use: 02/09/24 Do You Feel Safe in your Home?: Yes Lack of Transportation: No Lack of Food: Never True Current Housing: I Have Housing Concerned About Future Housing: No Difficulty Paying Gas/Electric Bills: No Difficulty Paying for Meds: No Currently Unemployed: No Education: High School Diploma/GED Difficulty w/ Childcare or Family Care: No Additional living arrangements comments: Lives with spouse and children in [place]. Spiritual care concerns: No Meds Home Medications and Allergies Home Medications Medication Instructions Recorded Confirmed Type atorvastatin 20 mg tablet 20 mg PO HS 11/10/23 02/25/24 History trazodone 100 mg tablet 100 mg PO
[2024-02-26] MEDS: DULoxetine HCL 30 MG CAPSULE.DR PO (12:36)
[2024-02-26 14:00] VITALS: BP 122/48; PULSE 87; RESP 18; TEMP 36.7; O2SAT 100
--- NOTE | 2024-02-26 16:05 | PC.NURSE ---
Dr. Morales said patient can not discharge today. He want the patients urine culture to finalize. Patient requesting more pain medication and Dr. Morales said to give a times 1 dose of IVP morphine 2 mg.
[2024-02-26] MEDS: MORPHINE SULFATE (*CRX) 2 MG/ML INJ IV PUSH (16:26)
[2024-02-26 17:29] LABS: Glucose Point of Care 86 mg/dl (65-105)
[2024-02-26 20:00] VITALS: PULSE 78; RESP 20; O2SAT 100
[2024-02-26] MEDS: NORTRIPTYLINE HCL 10 MG CAPSULE PO (20:24)
[2024-02-26] MEDS: MELATONIN 5 MG TABLET 10 MG PO (20:25)
[2024-02-26] MEDS: ATORVASTATIN 20 MG TABLET PO (20:25)
[2024-02-26] MEDS: traZODone HCL 50 MG TABLET 100 MG PO (20:26)
[2024-02-26] MEDS: INSULIN GLARGINE (*BKC) 100 UNITS/ML 24 UNITS SUB-Q (20:28)
[2024-02-26 21:52] LABS: Glucose Point of Care 114 mg/dl (65-105)
[2024-02-26 21:53] VITALS: BP 144/65; PULSE 78; RESP 20; TEMP 36.2; O2SAT 100
[2024-02-27] MEDS: oxyCODONE HCL (*CRX) 5 MG TAB IR PO ×3 (00:27→10:34)
[2024-02-27] MEDS: ONDANSETRON INJ 4 MG/2 ML VIAL IV PUSH (01:00)
[2024-02-27] MEDS: FLUCONAZOLE 150 MG TABLET PO (01:02)
[2024-02-27 06:00] VITALS: BP 140/60; PULSE 80; RESP 20; TEMP 36.6; O2SAT 100
[2024-02-27] MEDS: GABAPENTIN 300 MG CAPSULE 600 MG PO (08:16)
[2024-02-27] MEDS: DULoxetine HCL 30 MG CAPSULE.DR PO (08:16)
[2024-02-27] MEDS: ENOXAPARIN 40 MG/0.4 ML SYRINGE SUB-Q (08:16)
[2024-02-27] MEDS: ASPIRIN 81 MG ENTERIC TABLET PO (08:16)
[2024-02-27] MEDS: CITALOPRAM HYDROBROMIDE 10 MG TABLET PO (08:16)
--- NOTE | 2024-02-27 08:48 | PM.DS ---
DS: Admitting Diagnosis Discharge Date 02/27/2024 Admitting Diagnosis Concern for UTI DS: Discharge Diagnosis Discharge Diagnosis (1) Drug (multiple) resistant infection: Status: Acute (2) UTI (urinary tract infection): Code(s): N39.0 - Urinary tract infection, site not specified Status: Acute (3) Opioid dependence: Code(s): F11.20 - Opioid dependence, uncomplicated Status: Acute (4) Depression: Code(s): F32.A - Depression, unspecified Status: Acute (5) Normocytic anemia: Code(s): D64.9 - Anemia, unspecified Status: Acute (6) Urinary tract infection associated with indwelling urethral catheter: Qualifiers: Encounter type: initial encounter Qualified Code(s): T83.511A - Infection and inflammatory reaction due to indwelling urethral catheter, initial encounter; N39.0 - Urinary tract infection, site not specified Code(s): T83.511A - Infection and inflammatory reaction due to indwelling urethral catheter, initial encounter; N39.0 - Urinary tract infection, site not specified Status: Acute (7) Pressure ulcer of sacral region, stage 4: Code(s): L89.154 - Pressure ulcer of sacral region, stage 4 Status: Acute (8) Spinal cord stroke: Code(s): G95.11 - Acute infarction of spinal cord (embolic) (nonembolic) Status: Chronic (9) Paraplegia: Code(s): G82.20 - Paraplegia, unspecified Status: Chronic (10) Neurogenic bladder: Code(s): N31.9 - Neuromuscular dysfunction of bladder, unspecified Status: Acute (11) Diabetic peripheral neuropathy: Code(s): E11.42 - Type 2 diabetes mellitus with diabetic polyneuropathy Status: Acute (12) Type 1 diabetes mellitus: Code(s): E10.9 - Type 1 diabetes mellitus without complications Status: Chronic DS: Summary Hospital Course Hospital Course: Patient is a 43-year-old female who presents to the ER with concerns of a urinary tract infection. She has an extensive history of urinary tract infections, as she is a paraplegic and has a Marcos catheter in place at all times. Last exchanged in February 16, 2024 while she was here in the hospital. Patient was last admitted to the hospital for UTI within the last couple of weeks and discharged on February 18, 2024. She reports when she gets UTIs she gets leg pain, nausea, and sediment in her Marcos catheter bag. Patient reports she notice sediment in her catheter bag this morning and she is experiencing nausea/leg pain. She also has a history of chronic osteomyelitis, COVID and colitis. Patient denies fevers, chest pain, shortness the breath, increased weakness. Patient was otherwise stable. Vital signs are stable chronic anemia platelet of 219 panel was unremarkable urinalysis showed 50 WBC 6-10 positive side esterase nitrate. Budding yeast present. Bacteria present UTI possible however with chronic Marcos likely colonization she does my cell count home or fever. With her history of C diff and multiple active growth will avoid any broad-spectrum antibiotics and hence watch off antibiotics. Her diarrhea has already resolved from recent deficit treatment. She is supposed to see Urology as an outpatient basis to switch to intermittent catheterization which she is interested in. Urology was consulted and Marcos catheter was removed. She was taught for intermittent catheterization which she is already hospital stay. Urine culture indeed is growing some Klebsiella however will take this as a colonizer not a real infection will avoid antibiotics in this setting. She is otherwise feeling very well and opts to go home. She might benefit from seeing infectious disease specialist as an outpatient basis for continued monitoring on her UTI. COPD on intermittent catheterization for her neurogenic bladder. Sacrum decubitus ulcer is stable and will continue on wound care. History of osteomyelitis treated with antibiot
[2024-02-27 08:53] LABS: Glucose Point of Care 86 mg/dl (65-105)
--- NOTE | 2024-02-27 09:42 | WPDUROPN2 ---
Progress Note: A&P Assessment and Plan (1) Drug (multiple) resistant infection: Status: Acute Assessment and Plan: History of multi drug resistant Klebsiella pneumoniae positive urine cultures. Suspect colonization as she has no symptoms of active UTI. No indication for antibiotics at this time. May benefit from outpatient referral to Infectious Disease for continued monitoring. Would avoid treating with broad spectrum antibiotics unless acutely symptomatic given her history of C. diff (2) Neurogenic bladder: Code(s): N31.9 - Neuromuscular dysfunction of bladder, unspecified Status: Acute Assessment and Plan: Has had chronic indwelling ledbetter. Now transitioned to intermittent self catheterization. Will continue TID. She is tolerating this well. Will be discharged home with catheter supplies and will f/u in the office in 1 week so subsequent supplies can be ordered. Plan Okay for discharge home from urologic standpoint. No need to continue antibiotics at this time. Subjective Subjective Date/Time Seen: 02/27/24 09:42 Interval history: Jill is doing well today. She offers no concerns. Has been doing intermittent self catheterization since yesterday and reports no issues with this. Denies any difficulty and reports good urine output. Denies suprapubic pressure, fullness, pain. Eager for discharge home. Review of Systems Review of Systems: All systems reviewed & are unremarkable except as noted in HPI and below Exam Narrative: General: Awake, alert, comfortable, no acute distress HEENT: Normocephalic, atraumatic, sclerae anicteric Respiratory: Normal respiratory effort, no accessory muscle use Abdomen: Nondistended, soft, nontender Skin: Normal coloration, warm and dry Neurologic: No focal neuro deficits noted Psychiatric: Appropriate mood and affect, judgment and insight intact Objective Data Vital Signs Vital Signs: Vital Signs - 24 hr 02/26/24 14:00 02/26/24 21:53 02/26/24 20:00 Temperature 98.0 F 97.1 F L Pulse Rate 87 78 78 Respiratory Rate 18 20 20 Blood Pressure 122/48 L 144/65 H Pulse Oximetry 100 100 100 Oxygen Delivery Room Air 02/27/24 06:00 Temperature 97.8 F Pulse Rate 80 Respiratory Rate 20 Blood Pressure 140/60 Pulse Oximetry 100 Oxygen Delivery Intake/Output Intake/Output: Intake & Output 02/24/24 02/25/24 02/26/24 02/27/24 23:59 23:59 23:59 23:59 Intake Total 2019 2019 Output Total 600 2571 9964 Balance 6423 -[id number] -3088 Meds/Results Medications: Active Medications Generic Name Dose Route Start Last Admin Trade Name Freq PRN Reason Stop Dose Admin Acetaminophen 650 mg 02/25/24 23:46 Acetaminophen 325 Mg Tablet PO Q6H PRN Mild Pain (1-3) or Fever Aspirin 81 mg 02/26/24 09:00 02/27/24 08:16 Aspirin 81 Mg Enteric Tablet PO 81 mg QAM SUSANNE Administration Atorvastatin Calcium 20 mg 02/25/24 21:00 02/26/24 20:25 Atorvastatin 20 Mg Tablet PO 20 mg HS SUSANNE Administration Citalopram Hydrobromide 10 mg 02/26/24 09:00 02/27/24 08:16 Citalopram Hydrobromide 10 Mg Tablet PO 10 mg QAM SUSANNE Administration Dextrose 12.5 gm 02/25/24 13:05 Dextrose 50% 25 Gm/50 Ml Syringe IV PUSH PRN PRN Hypoglycemia Protocol Duloxetine HCl 30 mg 02/26/24 12:15 02/27/24 08:16 Duloxetine Hcl 30 Mg Capsule.Dr PO 30 mg QAM SUSANNE Administration Enoxaparin Sodium 40 mg 02/26/24 09:00 02/27/24 08:16 Enoxaparin 40 Mg/0.4 Ml Syringe SUB-Q 40 mg DAILY SUSANNE Administration Gabapentin 600 mg 02/25/24 13:00 02/27/24 08:16 Gabapentin 300 Mg Capsule PO 600 mg TID SUSANNE Administration Glucagon 1 mg 02/25/24 13:05 Glucagon For Inj 1 Mg Vial IM PRN PRN Hypoglycemia Protocol Glucose 15 gm 02/25/24 13:05 Glucose Oral Gel 15 Gm Of Glucse In 37.5 Gm Tube PO PRN PRN Hypoglycemia Protocol Dextrose 1,000 mls @ 100 mls/hr
== END 2024-02-27 11:45 | disposition home health service (06) ==
LOC: ANHED 05:06 → ANH3MED 06:42
PROVIDERS: Registered Nurse; Admitting Provider Internal Medicine; Emergency Provider Student in an Organized Health Care Education/Training Program; PCP Family Medicine; Visit Provider Internal Medicine
DX: N39.0 Urinary tract infection, site not specified (principal); T83.511A Infection and inflammatory reaction due to indwelling urethral catheter, initial encounter; E10.42 Type 1 diabetes mellitus with diabetic polyneuropathy; G82.20 Paraplegia, unspecified; E78.5 Hyperlipidemia, unspecified; N31.9 Neuromuscular dysfunction of bladder, unspecified; F32.A Depression, unspecified; D64.9 Anemia, unspecified; L89.154 Pressure ulcer of sacral region, stage 4; Z86.718 Personal history of other venous thrombosis and embolism; Z79.4 Long term (current) use of insulin; Z79.82 Long term (current) use of aspirin; F17.210 Nicotine dependence, cigarettes, uncomplicated; F11.20 Opioid dependence, uncomplicated; Z16.30 Resistance to unspecified antimicrobial drugs
CPT/HCPCS: 36415; 80053; 81001; 82948; 83036; 85025; 87077; 87086; 87088; 87186; 96361; 96365; 96372; 96374; 96375; 96376; 99285; A9270; G0378; J1170; J1650; J1815; J2185; J2270; J2405; J7030

== ENCOUNTER 2024-03-03 22:02 | Emergency (ER) | payer OTHER, MEDICAID, SELFPAY ==
--- NOTE | ~2024-03-03 | CT_ITS ---
EXAMINATION: CTA abd aorta runoff DATE: 03/03/2024 23:55 INDICATION: cold necrotic painful toes . TECHNIQUE: Computed tomography (CT) of the lower chest chest, abdomen, pelvis, and lower extremities was performed with 100 mL Omnipaque-350 intravenous contrast in the arterial phase. Automated exposur e control and iterative reconstruction technique were employed. The dose-length product was 1181.10 m Gy-cm. COMPARISON: CT abdomen pelvis 01/27/2024 FINDINGS: CHEST: Thoracic aorta: No significant dilation. No dissection. Lung parenchyma and airways: Lungs and airways are clear. Chest wall: No thyroid or soft tissue mass. No axillary lymphadenopathy. Mediastinum: No mass or lymphadenopathy. Heart and pericardium: Normal heart size. No pericardial effusion. Coronary artery calcifications: Mild. Pleura: No effusion or mass. Thoracic bones: No acute osseous finding in the chest. ABDOMEN/PELVIS: Liver: 1.3 cm irregular area of hyperenhancement in the right liver lobe,. Biliary/Gallbladder: Gallbladder is normal. No bile duct dilation. Pancreas: No mass or duct dilation. Spleen: Normal. Adrenals: Right adrenal myelolipoma. 1.4 cm indeterminate density left adrenal nodule. Kidneys: Left renal atrophy. Multiple hypoenhancing areas in the bilateral kidneys likely atelectasis Chronic infarct.. GI tract: Moderate distal esophageal and gastric wall edema. No small or large bowel dilation. Distal sigmoid and rectal wall edema. Normal appendix. Mesentery/Peritoneum: No ascites, mass, or free air. Retroperitoneum: No mass Atherosclerotic abdominal aortic and/or arterial calcifications. The inferio r mesenteric artery is not confidently identified. Otherwise patent major branch vessel artery origin s. Aortobiiliac grafts. Grafts appear patent. Moderate narrowing at the landing site of the right sang ac graft. Stent in the lower sioux left common iliac artery. Severe short segment stenoses in the distal r ight superficial femoral artery and at the right trifurcation. Moderate short segment narrowing in th e left trifurcation. 2 vessel flow below the level of the bilateral ankles. Pelvis: Distended urinary bladder with mild wall thickening and gas in the bladder lumen. Normal uter us. Normal left ovary. 1.2 cm simple right ovarian cyst versus dominant follicle. Coarse right ovaria n calcification. Presacral edema. Soft Tissues: Sacral decubitus ulcer extending to bone. Abdominopelvic bones: Stable changes of chronic synovitis in the sacrum. IMPRESSION: 1.3 cm hyperenhancing focus in the right liver lobe. Recommend nonemergent but timely outpatient MR o f the liver for further evaluation. 1.4 cm indeterminate density left adrenal mass. Typical recommendation is adrenal CT for further eval uation however this lesion could be evaluated at the time of the above recommended MRI liver. Persistent regions of bilateral renal hypoenhancement, suggestive of infarcts. Distal colitis/proctitis. Possible cystitis. Gas in the bladder lumen could be related to infection or recent instrumentation/c atheterization. Sacral decubitus ulcer with chronic sacral/coccygeal osteoarthritis. Patent aortobiiliac grafts. Moderate short segment stenosis at the landing site of the right iliac gr aft. Severe short segment stenoses on the right in the distal SFA and at the trifurcation. 2 vessel f low is present below the level of the ankles bilaterally. Reviewed, dictated and finalized at location K. IMPRESSION: 1.3 cm hyperenhancing focus in the right liver lobe. Recommend nonemergent but timely outpatient MR of the liver for further evaluation. 1.4 cm indeterminate density left adrenal mass. Typical recommendation is adren al CT for further evaluation however this lesion could be evaluated at the
[2024-03-03 22:03] VITALS: BP 178/99; PULSE 90; RESP 18; TEMP 36.7; O2SAT 99
[2024-03-03] MEDS: MORPHINE SULFATE (*CRX) 4 MG/ML INJ IV PUSH (23:09)
[2024-03-03 23:18] LABS: Basophils Percent Auto 0.4 % (0.2-1.2); Eosinophils Absolute Auto 0.2 K/mm3 (0-0.3); Eosinophils Percent Auto 2.3 % (0-4.4); Hematocrit 36.5 % (37.0-47.0); Hemoglobin 12.2 g/dL (12.0-15.0); Immature Granulocyte Absolute 0.04 K/mm3 (0.00-0.031); Immature Granulocyte Percent A 0.4 % (0-0.5); Lymphocytes Absolute Auto 2.74 K/mm3 (0.9-3.2); Lymphocytes Percent Auto 30.1 % (18.3-44.2); Mean Corpuscular HGB Conc 33.4 g/dl (32-36); Mean Corpuscular Hemoglobin 30.7 pg (26-34); Mean Corpuscular Volume 91.7 fl (80-100); Mean Platelet Volume 10.1 fl (7.4-10.4); Monocytes Absolute Auto 0.5 K/mm3 (0.1-0.6); Monocytes Percent Auto 5.7 % (2.6-8.5); Neutrophils Absolute Auto 5.5 K/mm3 (1.3-6.7); Neutrophils Percent Auto 61.1 % (45.5-73.1); Platelet Count Result 241 k/mm3 (150-375); Red Blood Count 3.98 M/mm3 (4.2-5.4); Red Cell Distribution Width 12.6 % (11.5-14.5); White Blood Count 9.1 K/mm3 (4.5-10.0)
[2024-03-03 23:27] LABS: Alanine Aminotransferase 101 U/L (6-35); Albumin Level 4.2 g/dL (3.5-5.1); Alkaline Phosphatase 153 U/L (38-126); Anion Gap 11 mmol/L (4-12); Aspartate Amino Transferase 68 U/L (14-36); Bilirubin,Total 0.3 mg/dL (0.2-1.3); Blood Urea Nitrogen 22 mg/dL (7-17); Calcium 10.3 mg/dL (8.4-10.2); Carbon Dioxide 22 mmol/L (22-30); Chloride 104 mmol/L (98-107); Estimated CRCL calculation 99 ml/min; Estimated Glomerular Filt Rate > 60; Glucose 121 mg/dL (65-110); Sodium 137 mmol/L (137-145)
--- NOTE | 2024-03-04 00:43 | ED.GENADULT ---
HPI - General Adult General Chief complaint: Extremity Injury, Lower Stated complaint: NECRTOTIC TOES, L 5TH TOE COMING OFF. Time Seen by Provider: 03/03/24 22:12 History of Present Illness HPI narrative: Patient with history of aorta femoral bypass done last year at [facility] complicated by thrombosis/ischemia, she has not been able to follow back up with the surgeon since she is suing her and does not currently have a vascular surgeon to follow up with. She states she has had black toes since June, presents with several days now of severe pain to her bilateral feet and toes. Her daughter saw her today and was worried that her right 4th toe looked like it was going to come off Related Data Home Medications Medication Instructions Recorded Confirmed atorvastatin 20 mg tablet 20 mg PO HS 11/10/23 02/25/24 trazodone 100 mg tablet 100 mg PO HS 11/10/23 02/25/24 melatonin 10 mg tablet 10 mg PO HS 01/12/24 02/25/24 aspirin 81 mg tablet 81 mg PO DAILY 02/10/24 02/25/24 Allergies Allergy/AdvReac Type Severity Reaction Status Date / Time azithromycin Allergy Unknown Hives Verified 03/03/24 22:15 amoxicillin AdvReac Unknown Verified 03/03/24 22:15 Review of Systems Review of Systems: All systems reviewed & are unremarkable except as noted in HPI and below PMFSH Past Medical History Medical History Abnormality of rectum Aortic thrombus Clostridium difficile diarrhea Deep venous thrombosis Diabetic peripheral neuropathy Hyperlipidemia Intractable nausea and vomiting Ischemic colitis Neurogenic bladder Paraplegia Spinal cord stroke Type 1 diabetes mellitus Surgical History Surgical History History of aorto-femoral bypass [facility] Family History Family History Mother Acute myocardial infarction Diabetes mellitus Hypertension Father History of blood clots Social History Social History Social History: Surrogate medical decision maker: Ml Aguilar, mother. Code status: Full code. Smoking packs per day: 1.5 Smoking cigarettes per day: 30.0 Years smoked: 24 Smoking pack-years: 36.00 Smoking status: Former smoker Second hand tobacco smoke exposure: No Alcohol intake: never Substance use: former Substance use type: marijuana Other substance usage details: daily Last use: 02/09/24 Do You Feel Safe in your Home?: Yes Lack of Transportation: No Lack of Food: Never True Current Housing: I Have Housing Concerned About Future Housing: No Difficulty Paying Gas/Electric Bills: No Difficulty Paying for Meds: No Currently Unemployed: No Education: High School Diploma/GED Difficulty w/ Childcare or Family Care: No Additional living arrangements comments: Lives with spouse and children in [place]. Spiritual care concerns: No Exam Narrative: EXAMINATION OF ORGAN SYSTEMS/BODY AREAS: Constitutional: Vital signs per nursing GENERAL:[No acute distress, non-toxic appearing.] HEAD: Normal with no signs of head trauma. EYES: EOMI, conjunctiva normal ENT: Hearing grossly intact LUNGS: Nonlabored breathing. HEART: [Regular rate and rhythm], normal bilateral DP pulses ABD: [Soft], [nontender to palpation] EXT: Blackened toes bilaterally; toes 2-5 on R foot, toes 4-5 on L foot SKIN: see above NEURO: [Alert and oriented x 3. No gross focal sensory or strength deficits.] PSYCH: Normal affect Course Vital Signs Vital signs: Vital Signs Temperature 98.0 F 03/03/24 22:03 Pulse Rate 90 03/03/24 22:03 Respiratory Rate 18 03/03/24 22:03 Blood Pressure 178/99 H 03/03/24 22:03 Pulse Oximetry 99 03/03/24 22:03 Oxygen Delivery Room Air 03/03/24 22:03 Temperature 98.0 F 03/03/24 22:03 Pulse
[2024-03-04] MEDS: MORPHINE SULFATE (*CRX) 4 MG/ML INJ IV PUSH ×2 (01:43→05:48)
[2024-03-04 01:44] VITALS: BP 144/62; PULSE 84; RESP 18; O2SAT 99
[2024-03-04 04:04] VITALS: BP 135/93; PULSE 93; RESP 18; O2SAT 98
[2024-03-04 06:59] VITALS: BP 140/85; PULSE 73; RESP 18; TEMP 36.6; O2SAT 100
[2024-03-04] MEDS: KETOROLAC 15 MG/ML VIAL (*BKC) IV PUSH (07:21)
--- NOTE | 2024-03-04 07:58 | PC.NURSE ---
transferred pt into hospital bed.
[2024-03-04] MEDS: ONDANSETRON INJ 4 MG/2 ML VIAL IV PUSH ×2 (08:26→12:56)
[2024-03-04] MEDS: HYDROcodone/acetaminophen (*CRX) 5-325 MG TABLET 1 TAB PO ×2 (09:14→09:15)
[2024-03-04 10:33] VITALS: BP 120/72; PULSE 74; RESP 17; TEMP 36.4; O2SAT 100
--- NOTE | 2024-03-04 10:49 | PC.NURSE ---
Gave updated VS to [facility]. No change in assignment, waiting for a bed
[2024-03-04 12:13] VITALS: BP 138/76; PULSE 70; TEMP 36.4; O2SAT 100
--- NOTE | 2024-03-04 12:44 | PC.NURSE ---
No Beds available remains on wait list
[2024-03-04] MEDS: oxyCODONE/ACETAMINOPHEN (*CRX) 5-325 MG TABLET 1 TABLET PO (14:19)
== END 2024-03-04 14:35 | disposition short-term general hospital (02) ==
PROVIDERS: Emergency Provider Emergency Medicine; PCP Family Medicine
DX: E10.52 Type 1 diabetes mellitus with diabetic peripheral angiopathy with gangrene (principal); I96 Gangrene, not elsewhere classified; E10.42 Type 1 diabetes mellitus with diabetic polyneuropathy; E78.5 Hyperlipidemia, unspecified; N31.9 Neuromuscular dysfunction of bladder, unspecified; K55.9 Vascular disorder of intestine, unspecified; G82.20 Paraplegia, unspecified; Z95.1 Presence of aortocoronary bypass graft; Z86.718 Personal history of other venous thrombosis and embolism; Z87.891 Personal history of nicotine dependence; Z79.82 Long term (current) use of aspirin; Z79.899 Other long term (current) drug therapy; Z79.4 Long term (current) use of insulin; K76.9 Liver disease, unspecified; E27.9 Disorder of adrenal gland, unspecified; R93.422 Abnormal radiologic findings on diagnostic imaging of left kidney; R93.421 Abnormal radiologic findings on diagnostic imaging of right kidney; K62.89 Other specified diseases of anus and rectum; K52.9 Noninfective gastroenteritis and colitis, unspecified; R93.41 Abnormal radiologic findings on diagnostic imaging of renal pelvis, ureter, or bladder; L89.159 Pressure ulcer of sacral region, unspecified stage; M47.898 Other spondylosis, sacral and sacrococcygeal region
CPT/HCPCS: 36415; 75635; 80053; 83605; 85025; 96374; 96375; 96376; 99285; A9270; J1885; J2270; J2405; Q9967

== ENCOUNTER 2024-03-12 07:02 | Observation (INO) | payer OTHER, BC, MEDICAID, SELFPAY ==
[2024-03-12] VITALS (25 sets, daily range): BP systolic 129–166; BP diastolic 70–106; PULSE 88–107; RESP 9–20; TEMP 36.2–36.7; O2SAT 94–100; BMI 25.9
--- NOTE | 2024-03-12 07:23 | ED.GENADULT ---
HPI - General Adult General Chief complaint: Unspecified Stated complaint: not feeling well Time Seen by Provider: 03/12/24 07:07 History of Present Illness HPI narrative: 43-year-old female presenting to the emergency department for evaluation for not feeling well. Patient did just have amputation of toes on 03/06. Patient does have prior history of spinal cord stroke since May of 2023. Patient states she does straight cath but ran out a straight caths and 1 of her nurse friends did place a Marcos catheter last night. Marcos catheter appears to be a draining successfully. Related Data Home Medications Medication Instructions Recorded Confirmed atorvastatin 20 mg tablet 20 mg PO HS 11/10/23 03/12/24 trazodone 100 mg tablet 100 mg PO HS 11/10/23 03/12/24 melatonin 10 mg tablet 10 mg PO HS 01/12/24 03/12/24 aspirin 81 mg tablet 81 mg PO DAILY 02/10/24 03/12/24 Allergies Allergy/AdvReac Type Severity Reaction Status Date / Time azithromycin Allergy Unknown Hives Verified 03/12/24 15:28 amoxicillin AdvReac Unknown Verified 03/12/24 15:28 Review of Systems Review of Systems: All systems reviewed & are unremarkable except as noted in HPI and below PMFSH Past Medical History Medical History (Updated 03/12/24 @ 18:42 by Baltazar Romero MD) Abnormality of rectum Aortic thrombus Clostridium difficile diarrhea Deep venous thrombosis Diabetic peripheral neuropathy Hyperlipidemia Intractable nausea and vomiting Ischemic colitis Neurogenic bladder Paraplegia Spinal cord stroke Type 1 diabetes mellitus Surgical History Surgical History (Updated 03/12/24 @ 16:17 by Irasema German APRN) History of aorto-femoral bypass [facility] History of partial amputation of toe 4th and 5th toe bilaterally Family History Family History Mother Acute myocardial infarction Diabetes mellitus Hypertension Father History of blood clots Social History Social History Social History: Surrogate medical decision maker: Ml Aguilar, mother. Code status: Full code. Smoking packs per day: 1.5 Smoking cigarettes per day: 30.0 Years smoked: 24 Smoking pack-years: 36.00 Smoking status: Current every day smoker Tobacco type: cigarettes Second hand tobacco smoke exposure: No Alcohol intake: never Substance use: current Substance use type: marijuana Other substance usage details: daily Last use: 02/09/24 Do You Feel Safe in your Home?: Yes Lack of Transportation: No Lack of Food: Never True Current Housing: I Have Housing Concerned About Future Housing: No Difficulty Paying Gas/Electric Bills: No Difficulty Paying for Meds: No Currently Unemployed: No Education: High School Diploma/GED Difficulty w/ Childcare or Family Care: No Additional living arrangements comments: Lives with spouse and children in [place]. Spiritual care concerns: No Exam Narrative: APPEARANCE: Well appearing, no pain, no distress, well-nourished. HEAD: normocephalic, atraumatic. EYES: PERRLA/EOMI, conjunctivae clear. NOSE: Normal no drainage EARS:TMS clear with good light reflex. THROAT: Pharynx clear, no exudate. NECK: Supple. No adenopathy, no masses. RESPIRATORY: Airway patent, respirations nonlabored. Clear to auscultation bilaterally, no rales, rhonchi, wheezing. CARDIOVASCULAR: Regular rate and rhythm without murmurs rubs or gallops. ABDOMINAL: Soft, nontender, nondistended, normal bowel sounds MUSCULOSKELETAL: At baseline NEURO: Alert. Cranial nerves II through XII intact. Grossly intact SKIN: Incisions are well. Course Course Emergency Course: Patient initially preferred to be discharged home ultimately did agree to not leave against medical advice. Vital Signs Vital signs: Vital Signs Temperature 97.1 F L 03/12/24 07:05 Pulse Rate 93 03/12/24
[2024-03-12 08:14] LABS: Influenza A QL RT-PCR Negative (Negative); Influenza B QL RT-PCR Negative (Negative); RSV RNA, RT-PCR Negative (Negative); SARS-CoV-2 RNA PCR Negative (Negative)
[2024-03-12 09:14] LABS: Basophils Absolute Auto 0.1 K/mm3 (0.0-0.1); Basophils Percent Auto 0.4 % (0.2-1.2); Eosinophils Absolute Auto 0.1 K/mm3 (0-0.3); Hematocrit 42.2 % (37.0-47.0); Hemoglobin 13.8 g/dL (12.0-15.0); Immature Granulocyte Absolute 0.05 K/mm3 (0.00-0.031); Immature Granulocyte Percent A 0.4 % (0-0.5); Lymphocytes Absolute Auto 1.63 K/mm3 (0.9-3.2); Lymphocytes Percent Auto 13.3 % (18.3-44.2); Mean Corpuscular HGB Conc 32.7 g/dl (32-36); Mean Corpuscular Hemoglobin 30.1 pg (26-34); Mean Corpuscular Volume 91.9 fl (80-100); Mean Platelet Volume 10.2 fl (7.4-10.4); Monocytes Absolute Auto 0.4 K/mm3 (0.1-0.6); Monocytes Percent Auto 3.6 % (2.6-8.5); Neutrophils Percent Auto 81.3 % (45.5-73.1); Platelet Count Result 267 k/mm3 (150-375); Red Blood Count 4.59 M/mm3 (4.2-5.4); Red Cell Distribution Width 12.5 % (11.5-14.5); White Blood Count 12.3 K/mm3 (4.5-10.0)
[2024-03-12 09:18] LABS: Add Urine Microscopic? YES; Appearance Urine Turbid (Clear); Bacteria Urine 4+ /hpf; Bilirubin Urine Negative (Negative); Blood Urine Negative (Negative); Color Urine Yellow (Yellow); Glucose Urine UA Negative (Negative); Ketones Urine Trace mg/dL (Negative); Leukocyte Esterase Ur 2+ LEU/UL (Negative); Nitrate Urine Positive (Negative); Non Pathogenic Casts 0-2; Protein Urine 1+ mg/dL (Negative); RBC Urine 0-2 /hpf (0-2); Squamous Epithelial Cell Urine None Seen /hpf (Few); WBC Urine 51-100 /hpf (0-3); pH Urine 6.5 (5.0-9.0)
[2024-03-12 09:24] LABS: Alanine Aminotransferase 25 U/L (6-35); Albumin Level 4.7 g/dL (3.5-5.1); Alkaline Phosphatase 107 U/L (38-126); Anion Gap 10 mmol/L (4-12); Aspartate Amino Transferase 18 U/L (14-36); Bilirubin,Total 0.3 mg/dL (0.2-1.3); Blood Urea Nitrogen 14 mg/dL (7-17); Calcium 10.3 mg/dL (8.4-10.2); Carbon Dioxide 23 mmol/L (22-30); Chloride 105 mmol/L (98-107); Estimated CRCL calculation 113 ml/min; Estimated Glomerular Filt Rate > 60; Glucose 170 mg/dL (65-110); Lactic Acid Reflex 1.4 mmol/L (0.7-2.0); Lipase 48 U/L (23-300); Potassium 3.8 mmol/L (3.4-5.0); Sodium 138 mmol/L (137-145)
[2024-03-12 09:34] LABS: INR 0.9; Prothrombin Time 12.8 Seconds (11.1-14.7)
[2024-03-12 09:35] LABS: Partial Thromboplastin Time 25.9 Seconds (22.3-36.8)
[2024-03-12] MEDS: ACETAMINOPHEN 500 MG TABLET 1000 MG PO (09:55)
[2024-03-12] MEDS: levoFLOXacin 750 MG/D5W 150 ML 750 MG/150 ML BAG 100 MG IVPB (10:11)
--- NOTE | 2024-03-12 10:31 | PC.NURSE ---
Pt has been cleaned up from having a small BM three times since arrival to ED. This RN present with each one. Pt suddenly frustrated, states, I'm not going to stay here and lay in my own shit all day, I can get much better care at home . RN apologized to pt, as it has been a very busy morning, assured her we were not intentionally not coming in to help her. Pt given Tylenol for her headache. Pt agitated about the tylenol but agreed to take it. RN informed pt of her lab/UA results and ordered IV antibiotics, plan for CT. Pt refuses her CT, says she will be leaving after her antibiotic and to arrange for an ambulance to take her home. Pt increasingly angered, started cursing, stating that her home health RN would could be doing all of this and do a much better job, pt stated RNs and doctors here have no idea what they're doing and that she should've just came on powder core tester, they're the ones who know what they're doing , and told RN she doesn't think these antibiotics will help her. I spoke with pt about being able to switch the antibiotic if needed after the urine culture grows, and that they will be able to see what med will specifically work with her UTI. Pt stated, this will just end up another lawsuit once I go septic. If you guys aren't willing to treat me, then I'll leave and go somewhere else . Pt assured by RN that we are definitely willing to help her, and that IV antibiotics will be in her best interest for treatment if she is willing to stay. Pt stated that her feet are hurting too, RN asked if I could help reposition them in any way, or move her pillow between her legs, pt firmly told RN no that she does not want any help from me. senior director of global [employer] technology solutions arrived in room, pt refused the CT scan. made aware of situation and her wishes to leave after IV antibiotics.
[2024-03-12] MEDS: HYDROmorphone HCL INJ (*CRX) 1 MG/ML SYR 0.5 MG IV PUSH ×2 (12:04→16:32)
--- NOTE | 2024-03-12 12:26 | PM.IMHP ---
H&P: HPI History of Present Illness Date/Time: 03/12/24 12:26 Chief Complaint: Lower Abdominal Pain Narrative: 43 y/o F presents here with abdominal pain with PMH of paraplegia secondary to an embolic cord stroke after surgery was performed for aortic thrombus via aortic bypass (May 2023), DM1, diabetic peripheral neuropathy, and HLD. The patient since here for further evaluation of general malaise, nausea, vomiting, and chills. She reports onset of symptoms started on Saturday with general malaise and significantly worsened yesterday with the N/V and chills. Endorsing accompanying abdominal pain. Patient reports she has been more constipated lately due to hydrocodone. Last BM today, consistency has been hard/small. Patient believes pain is secondary to constipation. Denies recent diarrhea. Patient has extensive history of UTIs that are multidrug resistant. Patient previously had chronic indwelling Marcos catheter secondary to paraplegia. However, during last admission from 02/25/2024 to 02/27/2024, patient was transitioned from a Marcos catheter to intermittent self catheterization with plans for follow-up in office 1 week post discharge for subsequent supplies to be ordered. The patient reports she ran out of straight catheterization supplies last night and had a friend who is a nurse place a Marcos catheter last night (03/11) which currently remains place. She reports she was unable to attend this appt due to recent admission for amputation of her 4th and 5th toes (bilaterally) at [facility] on 03/06 (Saturday). Reporting significant pain to her left foot at amputation site. Had recent minor trauma to area when her bumped her feet into a surface when moving her. The patient also reports she has been off of her insulin since the end of January. Reports she was diagnosed with type 1 diabetes when she was 14-15 years old. She is unsure if she underwent antibody testing but was significantly overweight at the time. Initial VS at presentation: 97.1? F, HR 93, RR 14, 137/74, and 98% on RA ED workup showed: WBC 12.3, no anemia, creatinine 0.6 and GFR >60, and UA consistent with UTI. Patient declined CT of the abdomen/pelvis. Review of Systems Review of Systems: All systems reviewed & are unremarkable except as noted in HPI and below PMFSH Past Medical History Medical History Abnormality of rectum Aortic thrombus Clostridium difficile diarrhea Deep venous thrombosis Diabetic peripheral neuropathy Hyperlipidemia Intractable nausea and vomiting Ischemic colitis Neurogenic bladder Paraplegia Spinal cord stroke Type 1 diabetes mellitus Surgical History Surgical History (Updated 03/12/24 @ 16:17 by Irasema German APRN) History of aorto-femoral bypass [facility] History of partial amputation of toe 4th and 5th toe bilaterally Family History Family History Mother Acute myocardial infarction Diabetes mellitus Hypertension Father History of blood clots Social History Social History Social History: Surrogate medical decision maker: Mlkiersten Aguilar, mother. Code status: Full code. Smoking packs per day: 1.5 Smoking cigarettes per day: 30.0 Years smoked: 24 Smoking pack-years: 36.00 Smoking status: Current every day smoker Tobacco type: cigarettes Second hand tobacco smoke exposure: No Alcohol intake: never Substance use: current Substance use type: marijuana Other substance usage details: daily Last use: 02/09/24 Do You Feel Safe in your Home?: Yes Lack of Transportation: No Lack of Food: Never True Current Housing: I Have Housing Concerned About Future Housing: No Difficulty Paying Gas/Electric Bills: No Difficulty Paying for Meds: No Currently Unemployed: No Education: High School Diploma/GED Difficulty
[2024-03-12] MEDS: MEROPENEM 1 GM/NS 100 ML 1 GM/100 ML BAG IVPB ×2 (13:53→20:51)
[2024-03-12] MEDS: ONDANSETRON INJ 4 MG/2 ML VIAL IV PUSH (14:48)
--- NOTE | 2024-03-12 15:25 | ADMGEN ---
This patient, Jill Villa, was admitted to 2 Medical Room 260-. Patient/family oriented to hospital policies and general routines including ID bracelet, bed and alarms, visiting hours, pain management, procedures, bathroom and other care routines, personal items, smoking policy, room service/diet, and visiting hours. Information on how to activate the Rapid Response Team has been discussed. Patient/Family are encouraged to report perceived risks to care and to ask questions if they do not understand what they are told or what they should do.
[2024-03-12 17:31] LABS: Glucose Point of Care 124 mg/dl (65-105)
[2024-03-12] MEDS: traZODone HCL 50 MG TABLET 100 MG PO (20:50)
[2024-03-12] MEDS: NORTRIPTYLINE HCL 10 MG CAPSULE PO (20:50)
[2024-03-12] MEDS: ATORVASTATIN 20 MG TABLET PO (20:50)
[2024-03-12] MEDS: MELATONIN 5 MG TABLET 10 MG PO (20:50)
[2024-03-12] MEDS: DOCUSATE SODIUM 100 MG CAPSULE PO (20:50)
[2024-03-13] MEDS: HYDROmorphone HCL INJ (*CRX) 1 MG/ML SYR 0.5 MG IV PUSH ×5 (06:12→21:47)
[2024-03-13] MEDS: ONDANSETRON INJ 4 MG/2 ML VIAL IV PUSH ×2 (06:13→19:58)
[2024-03-13] MEDS: MEROPENEM 1 GM/NS 100 ML 1 GM/100 ML BAG IVPB ×3 (06:13→20:03)
[2024-03-13 06:18] VITALS: BP 148/87; PULSE 93; RESP 18; TEMP 36.8; O2SAT 100
[2024-03-13 08:07] LABS: Glucose Point of Care 159 mg/dl (65-105)
[2024-03-13 08:15] VITALS: O2SAT 98
[2024-03-13] MEDS: CITALOPRAM HYDROBROMIDE 10 MG TABLET PO (08:21)
[2024-03-13] MEDS: DOCUSATE SODIUM 100 MG CAPSULE PO ×2 (08:21→19:59)
[2024-03-13] MEDS: KETOROLAC 15 MG/ML VIAL (*BKC) IV PUSH ×2 (08:21→19:56)
[2024-03-13] MEDS: ASPIRIN 81 MG ENTERIC TABLET PO (08:21)
--- NOTE | 2024-03-13 09:06 | WPDURCON ---
Assessment and Plan Assessment and plan (1) Abnormal urinalysis: Code(s): R82.90 - Unspecified abnormal findings in urine Status: Inactive Assessment and Plan: UA abnormal, though no acute UTI symptoms. She remains afebrile. Urine culture is pending at this time. Currently on meropenem for possible UTI, though I suspect this is indicative of colonization. Would limit use of broad-spectrum antibiotics unless acutely symptomatic given her history of C diff. Discussed during previous admissions that she may benefit from outpatient referral to Infectious Disease for continued monitoring. 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 See plan as above (3) Neurogenic bladder: Code(s): N31.9 - Neuromuscular dysfunction of bladder, unspecified Status: Acute Assessment and Plan: Recently educated on intermittent self catheterization and started doing 3-4x/day. She ran out of supplies and has not been able to establish outpatient care to renew supplies. Marcos placed by friend as an outpatient on 03/11/2024. Will continue indwelling Marcos at this time until outpatient follow-up can be arranged to resume CIC. Will schedule promptly following hospital discharge Urology Consult Note HPI Date Seen: 03/13/24 Requesting Physician: Attila Apple MD Primary Care Provider: Anjum AraizaMD Consult Narrative Narrative: Jill Villa is a 43 year old female well known to me with multiple recent hospital admissions. She has a history of spinal stroke and is wheelchair-bound with neurogenic bladder and recurrent UTIs. She had chronic indwelling Marcos for some time and was recently educated on intermittent catheterization. She did this for few weeks but ran out of supplies. Given her multiple hospitalizations, she has not had the opportunity to establish care in the office to have proper catheter supplies ordered. Most recently, she missed her appointment due to need for hospital admission for amputation of her bilateral 4th and 5th toes. During this time, she did run out of straight catheter supplies and had a friend who is a nurse place a Marcos catheter for her on 03/11/2024. Her catheter is draining without difficulty and she reports no concerns. Yesterday she complained of general malaise with nausea vomiting and abdominal pain which prompted her evaluation in the ER. On arrival, she was afebrile and her vital signs were stable, WBC was minimally elevated at 12.3, UA abnormal, consistent with all prior urinalyses. A urine culture was obtained and is pending at this time. She is currently on meropenem given history of multi-drug resistant Klebsiella UTIs, though suspect this is due to colonization. At the time of my evaluation, she is feeling much improved, back to her usual state of health and reports no concerns. Review of Systems Review of Systems: All systems reviewed & are unremarkable except as noted in HPI and below [facility] Past Medical History Medical History (Updated 03/12/24 @ 18:42 by Baltazar Romero MD) Abnormality of rectum Aortic thrombus Clostridium difficile diarrhea Deep venous thrombosis Diabetic peripheral neuropathy Hyperlipidemia Intractable nausea and vomiting Ischemic colitis Neurogenic bladder Paraplegia Spinal cord stroke Type 1 diabetes mellitus Surgical History Surgical History (Updated 03/12/24 @ 16:17 by Irasema German APRN) History of aorto-femoral bypass [facility] History of partial amputation of toe 4th and 5th toe bilaterally Family History Family History Mother Acute myocardial infarction Diabetes mellitus Hypertension Father History of blood clots Social History Social History Social H
[2024-03-13 10:33] VITALS: BMI 25.9
[2024-03-13 11:54] LABS: Glucose Point of Care 182 mg/dl (65-105)
--- NOTE | 2024-03-13 13:31 | PM.IMPN ---
Progress Note: A&P Assessment and Plan (1) Abnormal urinalysis: Code(s): R82.90 - Unspecified abnormal findings in urine Status: Inactive Assessment and Plan: UA abnormal, though no acute UTI symptoms. She remains afebrile. Urine culture is pending at this time. Currently on meropenem for possible UTI, though I suspect this is indicative of colonization. Would limit use of broad-spectrum antibiotics unless acutely symptomatic given her history of C diff. Discussed during previous admissions that she may benefit from outpatient referral to Infectious Disease for continued monitoring. 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 See plan as above (3) Neurogenic bladder: Code(s): N31.9 - Neuromuscular dysfunction of bladder, unspecified Status: Acute Assessment and Plan: Recently educated on intermittent self catheterization and started doing 3-4x/day. She ran out of supplies and has not been able to establish outpatient care to renew supplies. Marcos placed by friend as an outpatient on 03/11/2024. Will continue indwelling Marcos at this time until outpatient follow-up can be arranged to resume CIC. Will schedule promptly following hospital discharge Plan today feels better and abdominal pain has improved, did have few had BM but overall feeling better, patient with self cath and now Marcos with history of recurrent UTI patient is being treated with meropenem, seen by urologist recommended to follow urine culture and appropriate abx. Subjective Date/time seen: 03/13/24 13:31 Interval history: Lower Abdominal Pain [id number]: 43 y/o F presents here with abdominal pain with PMH of paraplegia secondary to an embolic cord stroke after surgery was performed for aortic thrombus via aortic bypass (May 2023), DM1, diabetic peripheral neuropathy, and HLD. The patient since here for further evaluation of general malaise, nausea, vomiting, and chills. She reports onset of symptoms started on Saturday with general malaise and significantly worsened yesterday with the N/V and chills. Endorsing accompanying abdominal pain. Patient reports she has been more constipated lately due to hydrocodone. Last BM today, consistency has been hard/small. Patient believes pain is secondary to constipation. Denies recent diarrhea. Patient has extensive history of UTIs that are multidrug resistant. Patient previously had chronic indwelling Marcos catheter secondary to paraplegia. However, during last admission from 02/25/2024 to 02/27/2024, patient was transitioned from a Marcos catheter to intermittent self catheterization with plans for follow-up in office 1 week post discharge for subsequent supplies to be ordered. The patient reports she ran out of straight catheterization supplies last night and had a friend who is a nurse place a Marcos catheter last night (03/11) which currently remains place. She reports she was unable to attend this appt due to recent admission for amputation of her 4th and 5th toes (bilaterally) at [facility] on 03/06 (Saturday). Reporting significant pain to her left foot at amputation site. Had recent minor trauma to area when her bumped her feet into a surface when moving her. The patient also reports she has been off of her insulin since the end of January. Reports she was diagnosed with type 1 diabetes when she was 14-15 years old. She is unsure if she underwent antibody testing but was significantly overweight at the time. today feels better and abdominal pain has improved, did have few had BM but overall feeling better, patient with self cath and now Marcos with history of recurrent UTI patient is being treated with meropenem, seen by urologist recommended to follow urine culture and appropriate abx. Review of Systems Review of Systems: All systems reviewed & are unre
[2024-03-13 14:00] VITALS: BP 141/76; PULSE 92; RESP 16; TEMP 36.4; O2SAT 100
[2024-03-13 16:50] LABS: Glucose Point of Care 155 mg/dl (65-105)
[2024-03-13] MEDS: traZODone HCL 50 MG TABLET 100 MG PO (19:59)
[2024-03-13] MEDS: MELATONIN 5 MG TABLET 10 MG PO (19:59)
[2024-03-13] MEDS: ATORVASTATIN 20 MG TABLET PO (19:59)
[2024-03-13] MEDS: NORTRIPTYLINE HCL 10 MG CAPSULE PO (19:59)
[2024-03-13 20:00] VITALS: PULSE 96; RESP 18; O2SAT 99
[2024-03-13 20:10] VITALS: BP 132/62; PULSE 96; RESP 18; TEMP 36.5; O2SAT 99
[2024-03-13 20:50] LABS: Glucose Point of Care 188 mg/dl (65-105)
[2024-03-14] MEDS: HYDROmorphone HCL INJ (*CRX) 1 MG/ML SYR 0.5 MG IV PUSH ×6 (01:44→21:54)
[2024-03-14 04:35] LABS: Hematocrit 33.2 % (37.0-47.0); Hemoglobin 11.3 g/dL (12.0-15.0); Mean Corpuscular Volume 91.2 fl (80-100); Mean Platelet Volume 10.3 fl (7.4-10.4); Platelet Count Result 216 k/mm3 (150-375); Red Blood Count 3.64 M/mm3 (4.2-5.4); Red Cell Distribution Width 12.3 % (11.5-14.5); White Blood Count 9.9 K/mm3 (4.5-10.0)
[2024-03-14] MEDS: MEROPENEM 1 GM/NS 100 ML 1 GM/100 ML BAG IVPB ×2 (04:43→14:03)
[2024-03-14] MEDS: KETOROLAC 15 MG/ML VIAL (*BKC) IV PUSH ×3 (04:43→18:13)
[2024-03-14 04:44] VITALS: BP 137/76; PULSE 95; RESP 18; TEMP 36.5; O2SAT 100
[2024-03-14 05:16] LABS: Anion Gap 8 mmol/L (4-12); Blood Urea Nitrogen 33 mg/dL (7-17); Calcium 9.5 mg/dL (8.4-10.2); Carbon Dioxide 23 mmol/L (22-30); Chloride 105 mmol/L (98-107); Estimated CRCL calculation 87 ml/min; Estimated Glomerular Filt Rate > 60; Glucose 185 mg/dL (65-110); Magnesium 1.8 mg/dL (1.6-2.3); Potassium 4.1 mmol/L (3.4-5.0); Sodium 136 mmol/L (137-145)
[2024-03-14 07:59] LABS: Glucose Point of Care 129 mg/dl (65-105)
[2024-03-14] MEDS: ASPIRIN 81 MG ENTERIC TABLET PO (09:41)
[2024-03-14] MEDS: CITALOPRAM HYDROBROMIDE 10 MG TABLET PO (09:41)
[2024-03-14 12:13] LABS: Glucose Point of Care 134 mg/dl (65-105)
--- NOTE | 2024-03-14 13:35 | PM.IMPN ---
Progress Note: A&P Assessment and Plan (1) Abnormal urinalysis: Code(s): R82.90 - Unspecified abnormal findings in urine Status: Inactive Assessment and Plan: UA abnormal, though no acute UTI symptoms. She remains afebrile. Urine culture is pending at this time. Today we discontinued meropenem since there is no signs of sepsis. Since patient is not undergoing any urological procedure or no evidence of we strongly do not recommend antibiotic at this point. Also patient has a history of C diff infection due to chronic usage of antibiotic. 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 See plan as above (3) Neurogenic bladder: Code(s): N31.9 - Neuromuscular dysfunction of bladder, unspecified Status: Acute Assessment and Plan: Recently educated on intermittent self catheterization and started doing 3-4x/day. She ran out of supplies and has not been able to establish outpatient care to renew supplies. Marcos placed by friend as an outpatient on 03/11/2024. Will continue indwelling Marcos at this time until outpatient follow-up can be arranged to resume CIC. Will schedule promptly following hospital discharge (4) Constipation: Code(s): K59.00 - Constipation, unspecified Status: Inactive Assessment and Plan: Started bowel regimen Had 2 bowel movements. Plan Subjective Date/time seen: 03/14/24 13:35 Interval history: Lower Abdominal Pain H&Q-WMT-Mxodsiyng: 43 y/o F presents here with abdominal pain with PMH of paraplegia secondary to an embolic cord stroke after surgery was performed for aortic thrombus via aortic bypass (May 2023), DM1, diabetic peripheral neuropathy, and HLD. The patient since here for further evaluation of general malaise, nausea, vomiting, and chills. She reports onset of symptoms started on Saturday with general malaise and significantly worsened yesterday with the N/V and chills. Endorsing accompanying abdominal pain. Patient reports she has been more constipated lately due to hydrocodone. Last BM today, consistency has been hard/small. Patient believes pain is secondary to constipation. Denies recent diarrhea. Patient has extensive history of UTIs that are multidrug resistant. Patient previously had chronic indwelling Marcos catheter secondary to paraplegia. However, during last admission from 02/25/2024 to 02/27/2024, patient was transitioned from a Marcos catheter to intermittent self catheterization with plans for follow-up in office 1 week post discharge for subsequent supplies to be ordered. The patient reports she ran out of straight catheterization supplies last night and had a friend who is a nurse place a Marcos catheter last night (03/11) which currently remains place. She reports she was unable to attend this appt due to recent admission for amputation of her 4th and 5th toes (bilaterally) at [facility] on 03/06 (Saturday). Reporting significant pain to her left foot at amputation site. Had recent minor trauma to area when her bumped her feet into a surface when moving her. The patient also reports she has been off of her insulin since the end of January. Reports she was diagnosed with type 1 diabetes when she was 14-15 years old. She is unsure if she underwent antibody testing but was significantly overweight at the time. 03/14 : Patient is currently doing well. Patient had 2 bowel movements after the bowel regimen. Due to her previous history of C diff and indwelling Marcos catheter, possibly colonization ,will discontinue the antibiotic. Review of Systems Review of Systems: All systems reviewed & are unremarkable except as noted in HPI and below Exam Narrative: Patient is comfortable, NAD HEENT: eyes are clear and none icteric LUNGS: No retraction ABD: not distended Lower extremities: no edema
[2024-03-14 14:00] VITALS: BP 160/69; PULSE 88; RESP 18; O2SAT 100
[2024-03-14 17:13] LABS: Glucose Point of Care 150 mg/dl (65-105)
[2024-03-14] MEDS: ONDANSETRON INJ 4 MG/2 ML VIAL IV PUSH (17:53)
[2024-03-14 20:26] VITALS: BP 159/84; PULSE 94; RESP 20; TEMP 36.7; O2SAT 99
[2024-03-14 20:44] LABS: Glucose Point of Care 218 mg/dl (65-105)
[2024-03-14] MEDS: NORTRIPTYLINE HCL 10 MG CAPSULE PO (21:47)
[2024-03-14] MEDS: ATORVASTATIN 20 MG TABLET PO (21:47)
[2024-03-14] MEDS: traZODone HCL 50 MG TABLET 100 MG PO (21:47)
[2024-03-14] MEDS: MELATONIN 5 MG TABLET 10 MG PO (21:48)
[2024-03-15] MEDS: KETOROLAC 15 MG/ML VIAL (*BKC) IV PUSH ×3 (03:17→18:37)
[2024-03-15] MEDS: HYDROmorphone HCL INJ (*CRX) 1 MG/ML SYR 0.5 MG IV PUSH ×4 (05:06→19:22)
[2024-03-15 06:00] VITALS: BP 142/71; PULSE 77; RESP 18; TEMP 36.6; O2SAT 100
[2024-03-15] MEDS: CITALOPRAM HYDROBROMIDE 10 MG TABLET PO (09:15)
[2024-03-15] MEDS: ASPIRIN 81 MG ENTERIC TABLET PO (09:15)
[2024-03-15] MEDS: ONDANSETRON INJ 4 MG/2 ML VIAL IV PUSH (09:15)
--- NOTE | 2024-03-15 10:56 | PC.NURSE ---
patient had glucose reading of 136 at 0823 on 03/15/24. glucose monitor [id number]. when monitor placed on dock, data did not transfer through to computer.
[2024-03-15 11:09] LABS: Glucose Point of Care 136 mg/dl (65-105)
[2024-03-15 12:03] LABS: Glucose Point of Care 160 mg/dl (65-105)
--- NOTE | 2024-03-15 13:51 | PM.DS ---
DS: Admitting Diagnosis Discharge Date 03/15/2024 Admitting Diagnosis UTI, colitis, constipation, diverticulitis, urinary retention, urinary tract infection DS: Discharge Diagnosis Discharge Diagnosis (1) Abnormal urinalysis: Code(s): R82.90 - Unspecified abnormal findings in urine Status: Inactive Assessment and Plan: UA abnormal, though no acute UTI symptoms. She remains afebrile. Urine culture is pending at this time. Today we discontinued meropenem since there is no signs of sepsis. Since patient is not undergoing any urological procedure or no evidence of we strongly do not recommend antibiotic at this point. Also patient has a history of C diff infection due to chronic usage of antibiotic. 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 See plan as above (3) Neurogenic bladder: Code(s): N31.9 - Neuromuscular dysfunction of bladder, unspecified Status: Acute Assessment and Plan: Recently educated on intermittent self catheterization and started doing 3-4x/day. She ran out of supplies and has not been able to establish outpatient care to renew supplies. Marcos placed by friend as an outpatient on 03/11/2024. Will continue indwelling Marcos at this time until outpatient follow-up can be arranged to resume CIC. Will schedule promptly following hospital discharge (4) Constipation: Code(s): K59.00 - Constipation, unspecified Status: Inactive Assessment and Plan: Started bowel regimen Had 2 bowel movements. 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 The patient since here for further evaluation of general malaise, nausea, vomiting, and chills. She reports onset of symptoms started on Saturday with general malaise and significantly worsened yesterday with the N/V and chills. Endorsing accompanying abdominal pain. Patient reports she has been more constipated lately due to hydrocodone. Last BM today, consistency has been hard/small. Patient believes pain is secondary to constipation. Denies recent diarrhea. Patient has extensive history of UTIs that are multidrug resistant. Patient previously had chronic indwelling Marcos catheter secondary to paraplegia. However, during last admission from 02/25/2024 to 02/27/2024, patient was transitioned from a Marcos catheter to intermittent self catheterization with plans for follow-up in office 1 week post discharge for subsequent supplies to be ordered. The patient reports she ran out of straight catheterization supplies last night and had a friend who is a nurse place a Marcos catheter last night (03/11) which currently remains place. She reports she was unable to attend this appt due to recent admission for amputation of her 4th and 5th toes (bilaterally) at [facility] on 03/06 (Saturday). Reporting significant pain to her left foot at amputation site. Had recent minor trauma to area when her bumped her feet into a surface when moving her. The patient also reports she has been off of her insulin since the end of January. Reports she was diagnosed with type 1 diabetes when she was 14-15 years old. She is unsure if she underwent antibody testing but was significantly overweight at the time. Initial VS at presentation: 97.1? F, HR 93, RR 14, 137/74, and 98% on RA ED workup showed: WBC 12.3, no anemia, creatinine 0.6 and GFR >60, and UA consistent with UTI. Patient declined CT of the abdomen/pelvis. Urology : UA abnormal, though no acute UTI symptoms. She remains afebrile. Urine culture is pending at this time. Currently on meropenem for possible UTI, though I suspect this is indicati
[2024-03-15 14:00] VITALS: BP 160/80; PULSE 101; RESP 18; TEMP 36.6; O2SAT 100
--- NOTE | 2024-03-15 14:45 | ECG_ITS ---
Test Date: 2024-03-15 14:55:47 Measurements Intervals [place] Rate: 88 P: 73 MI: 185 QRS: 43 QRSD: 103 T: 53 QT: 356 QTc: 433 Interpretive Statements SINUS RHYTHM BORDERLINE AV CONDUCTION DELAY BORDERLINE R WAVE PROGRESSION, ANTERIOR LEADS BORDERLINE ECG Compared to ECG 01/01/2024 23:17:32 NO SIGNIFICANT CHANGE Electronically Signed On 03-15-2024 15:38:41 CDT by Esteban Pandya D.O.
[2024-03-15 15:45] VITALS: BP 157/75; PULSE 88; RESP 17; TEMP 36.3; O2SAT 99
[2024-03-15 17:14] LABS: Glucose Point of Care 159 mg/dl (65-105)
--- NOTE | 2024-03-15 20:16 | PC.NURSE ---
reviewed patient's D/C instructions with patient
[2024-03-15 20:33] LABS: Glucose Point of Care 219 mg/dl (65-105)
[2024-03-15 20:34] VITALS: BP 152/79; PULSE 91; RESP 18; TEMP 36.8; O2SAT 99
--- NOTE | 2024-03-16 01:54 | PC.NURSE ---
03/15/24 2330 [facility] called floor after 3 new ETA's given, last one for 2400, and states that they will not be able to transport patient to home tonight due to high call volume and lack of truck availability. States they will put patient on schedule to be picked up at 0800 03/16/24. Patient informed and supervisor melt house, Paola, informed that patient is staying.
[2024-03-16] MEDS: HYDROmorphone HCL INJ (*CRX) 1 MG/ML SYR 0.5 MG IV PUSH ×2 (02:19→08:10)
[2024-03-16] MEDS: ASPIRIN 81 MG ENTERIC TABLET PO (08:02)
[2024-03-16] MEDS: ONDANSETRON INJ 4 MG/2 ML VIAL IV PUSH (08:03)
[2024-03-16] MEDS: CITALOPRAM HYDROBROMIDE 10 MG TABLET PO (08:11)
[2024-03-16 08:13] VITALS: RESP 18; O2SAT 99
[2024-03-16 08:15] LABS: Glucose Point of Care 158 mg/dl (65-105)
--- NOTE | 2024-03-16 09:32 | WPDUROPN2 ---
Progress Note: A&P Assessment and Plan (1) Abnormal urinalysis: Code(s): R82.90 - Unspecified abnormal findings in urine Status: Inactive Assessment and Plan: Urine culture with growth of Klebsiella, though no symptoms of acute infection. This is indicative of colonization and no further antibiotic treatment is required. In the future, would limit use of broad-spectrum antibiotics unless acutely symptomatic given her history of C diff. Discussed during previous admissions that she may benefit from outpatient referral to Infectious Disease for continued monitoring. 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 See plan as above (3) Neurogenic bladder: Code(s): N31.9 - Neuromuscular dysfunction of bladder, unspecified Status: Acute Assessment and Plan: Recently educated on intermittent self catheterization and started doing 3-4x/day. She ran out of supplies and has not been able to establish outpatient care to renew supplies. Marcos placed by friend as an outpatient on 03/11/2024. Will continue indwelling Marcos at this time until outpatient follow-up can be arranged to resume CIC. Okay for discharge home from urologic standpoint today, will arrange outpatient follow-up in the next 1-2 days Subjective Subjective Date/Time Seen: 03/16/24 09:32 Interval history: Jill is feeling much improved today. Hoping for discharge home later today. Offers no concerns. No issues with Marcos catheter which is draining clear yellow urine Review of Systems Review of Systems: All systems reviewed & are unremarkable except as noted in HPI and below Exam Narrative: General: Awake, alert, comfortable, no acute distress HEENT: Normocephalic, atraumatic, sclerae anicteric Respiratory: Normal respiratory effort, no accessory muscle use Abdomen: Nondistended, soft, nontender : Marcos catheter draining clear yellow urine Skin: Normal coloration, warm and dry Neurologic: No focal neuro deficits noted Psychiatric: Appropriate mood and affect, judgment and insight intact Objective Data Vital Signs Vital Signs: Vital Signs - 24 hr 03/15/24 14:00 03/15/24 15:45 03/15/24 20:34 Temperature 97.8 F 97.4 F L 98.3 F Pulse Rate 101 H 88 91 Respiratory Rate 18 17 18 Blood Pressure 160/80 H 157/75 H 152/79 H Pulse Oximetry 100 99 99 Oxygen Delivery 03/16/24 08:13 Temperature Pulse Rate Respiratory Rate 18 Blood Pressure Pulse Oximetry 99 Oxygen Delivery Room Air Intake/Output Intake/Output: Intake & Output 03/13/24 03/14/24 03/15/24 03/16/24 23:59 23:59 23:59 23:59 Intake Total 1020 1190 984 910 Output Total 1300 2200 2250 Balance 2920 -806 -7957 -1733 Meds/Results Medications: Active Medications Generic Name Dose Route Start Last Admin Trade Name Freq PRN Reason Stop Dose Admin Acetaminophen 650 mg 03/12/24 12:36 Acetaminophen 325 Mg Tablet PO Q6H PRN Mild Pain (1-3) or Fever Aspirin 81 mg 03/13/24 09:00 03/16/24 08:02 Aspirin 81 Mg Enteric Tablet PO 81 mg QAM SUSANNE Administration Atorvastatin Calcium 20 mg 03/12/24 21:00 03/15/24 22:50 Atorvastatin 20 Mg Tablet PO Not Given HS SUSANNE Citalopram Hydrobromide 10 mg 03/13/24 09:00 03/16/24 08:11 Citalopram Hydrobromide 10 Mg Tablet PO 10 mg QAM SUSANNE Administration Dextrose 12.5 gm 03/12/24 12:40 Dextrose 50% 25 Gm/50 Ml Syringe IV PUSH PRN PRN Hypoglycemia Protocol Docusate Sodium 100 mg 03/12/24 21:00 03/16/24 08:03 Docusate Sodium 100 Mg Capsule PO Not Given Q12HR SUSANNE Glucagon 1 mg 03/12/24 12:40 Glucagon For Inj 1 Mg Vial IM PRN PRN Hypoglycemia Protocol Glucose 15 gm 03/12/24 12:40 Glucose Oral Gel 15 Gm Of Glucse In 37.5 Gm Tube PO PRN PRN Hypoglycemia Pr
[2024-03-16 11:39] LABS: Glucose Point of Care 154 mg/dl (65-105)
[2024-03-22 23:14] LABS: Islet Cell Antibody Screen NEGATIVE (NEGATIVE)
== END 2024-03-16 12:00 | disposition home health service (06) ==
LOC: ANHED 12:23 → ANH2MED 18:04 → ANH3MEDSUR 03-17 08:15
PROVIDERS: Family Medicine; Student in an Organized Health Care Education/Training Program; Admitting Provider Internal Medicine; Emergency Provider Emergency Medicine; PCP Family Medicine; Visit Provider General Practice
DX: R82.90 Unspecified abnormal findings in urine (principal); G82.20 Paraplegia, unspecified; K59.03 Drug induced constipation; T40.2X5A Adverse effect of other opioids, initial encounter; N31.9 Neuromuscular dysfunction of bladder, unspecified; E10.42 Type 1 diabetes mellitus with diabetic polyneuropathy; E78.5 Hyperlipidemia, unspecified; F41.9 Anxiety disorder, unspecified; Z86.718 Personal history of other venous thrombosis and embolism; Z89.422 Acquired absence of other left toe(s); Z89.421 Acquired absence of other right toe(s); Z79.82 Long term (current) use of aspirin; F17.210 Nicotine dependence, cigarettes, uncomplicated; F12.90 Cannabis use, unspecified, uncomplicated; Z20.822 Contact with and (suspected) exposure to COVID-19
CPT/HCPCS: 36415; 80048; 80053; 81001; 82948; 83605; 83690; 83735; 85025; 85027; 85610; 85730; 86337; 86341; 87040; 87077; 87086; 87088; 87186; 87637; 93005; 96365; 96367; 96374; 96375; 96376; 99285; A9270; G0378; J1170; J1885; J1956; J2185; J2405

== ENCOUNTER 2024-03-22 23:24 | Observation (INO) | payer OTHER, BC, MEDICAID, SELFPAY ==
--- NOTE | ~2024-03-22 | XR_ITS ---
Portable chest x-ray Comparison: 01/01/2024 Clinical History: Chest pain Findings: Lungs are clear, without focal consolidation or pleural effusion. Cardiomediastinal silho uette is stable. Bones and soft tissues are unremarkable. Impression: Normal chest. Reviewed, dictated and finalized at [facility]. Impression: Normal chest.
--- NOTE | ~2024-03-22 | CT_ITS ---
CT of the Abdomen and Pelvis: Indication: Abdominal pain Technique: 2.5 mm axial scans were obtained through the abdomen and pelvis following intravenous adm inistration of 100 cc of Omnipaque 350. Dose reduction technique was used on this scan by utilizing a utomated exposure control and iterative reconstruction technique. The dose-length product (DLP) was 7 62.73 mGy-cm. COMPARISON: 03/03/2024 Findings: Scans through the lung bases are unremarkable. The liver, spleen, pancreas, gallbladder, and right adrenal gland are within normal limits. 1.5 cm le ft adrenal nodule again present. Left kidney again somewhat small extensive heterogeneous hypoenhance ment and punctate nonobstructing stone. There is probable focal volume loss and heterogeneous enhance ment of the lower pole the right kidney with punctate stone. No evidence of aortic aneurysm. There is occlusion of the distal abdominal aorta with aortobifemoral bypass. No lymphadenopathy. There is wall thickening of the distal sigmoid colon and rectum with large amount of stool, and mild infiltration of perirectal fat. No bowel obstruction. Images through the pelvis were performed. Urinary bladder stones are present, with tiny bubbles of ai r in urinary bladder. No adnexal mass evident. Sacral decubitus ulcer again noted at the level of the distal sacrum/coccyx. Stable malalignment at the C1-C2 level in the coccyx. Possible chronic osteomy elitis at this level. Impression: Extensive wall thickening of the distal sigmoid colon and rectum, with surrounding inflammatory hussein e, compatible with colitis/proctitis. Large amount of stool also present. Correlate for fecal impacti on/constipation. Sacral decubitus ulcer, with stable malalignment of the C1-C2 level in the coccyx. Questionable chron ic osteomyelitis at this level. Stable extensive left renal volume loss and heterogeneous enhancement, with focal volume loss and het erogeneous enhancement at the right lower renal pole. Findings could reflect sequelae renal infarcts. Correlate for pyelonephritis/UTI. Stable 1.5 cm left adrenal nodule, indeterminate. Additional chronic findings, as above. Reviewed, dictated and finalized at [facility]. Impression: Extensive wall thickening of the distal sigmoid colon and rectum, with surround ing inflammatory change, compatible with colitis/proctitis. Large amount of sto ol also present. Correlate for fecal impaction/constipation. Sacral decubitus ulcer, with stable malalignment of the C1-C2 level in the cocc yx. Questionable chronic osteomyelitis at this level. Stable extensive left renal volume loss and heterogeneous enhancement, with foc al volume loss and heterogeneous enhancement at the right lower renal pole. Fin dings could reflect sequelae renal infarcts. Correlate for pyelonephritis/UTI. Stable 1.5 cm left adrenal nodule, indeterminate. Additional chronic findings, as above.
[2024-03-22 23:28] VITALS: BP 170/92; PULSE 100; RESP 20; TEMP 36.9; O2SAT 98
[2024-03-22 23:36] VITALS: PULSE 102; RESP 17; O2SAT 97
[2024-03-22 23:45] VITALS: RESP 23; O2SAT 98
[2024-03-22 23:46] VITALS: BP 156/93; O2SAT 99
[2024-03-23] VITALS (18 sets, daily range): BP systolic 123–150; BP diastolic 67–83; PULSE 100–117; RESP 11–25; TEMP 35.7–36.9; O2SAT 97–100; BMI 22.9
[2024-03-23 00:12] LABS: Basophils Absolute Auto 0.1 K/mm3 (0.0-0.1); Basophils Percent Auto 0.4 % (0.2-1.2); Eosinophils Absolute Auto 0.1 K/mm3 (0-0.3); Eosinophils Percent Auto 0.4 % (0-4.4); Hematocrit 37.1 % (37.0-47.0); Hemoglobin 12.9 g/dL (12.0-15.0); Immature Granulocyte Absolute 0.13 K/mm3 (0.00-0.031); Immature Granulocyte Percent A 0.7 % (0-0.5); Lymphocytes Absolute Auto 2.23 K/mm3 (0.9-3.2); Lymphocytes Percent Auto 11.5 % (18.3-44.2); Mean Corpuscular HGB Conc 34.8 g/dl (32-36); Mean Corpuscular Volume 89.2 fl (80-100); Mean Platelet Volume 10.2 fl (7.4-10.4); Monocytes Percent Auto 5.2 % (2.6-8.5); Neutrophils Absolute Auto 15.9 K/mm3 (1.3-6.7); Neutrophils Percent Auto 81.8 % (45.5-73.1); Platelet Count Result 283 k/mm3 (150-375); Red Blood Count 4.16 M/mm3 (4.2-5.4); Red Cell Distribution Width 12.3 % (11.5-14.5); White Blood Count 19.4 K/mm3 (4.5-10.0)
[2024-03-23 00:23] LABS: Lactic Acid Reflex 3.5 mmol/L (0.7-2.0)
[2024-03-23] MEDS: SODIUM CHLORIDE 0.9% IV 1,000 ML 999 ML IV CONT (00:24)
[2024-03-23 00:25] LABS: Albumin Level 4.1 g/dL (3.5-5.1); Alkaline Phosphatase 123 U/L (38-126); Anion Gap 14 mmol/L (4-12); Aspartate Amino Transferase 20 U/L (14-36); Bilirubin,Total 0.5 mg/dL (0.2-1.3); Blood Urea Nitrogen 21 mg/dL (7-17); Calcium 10.2 mg/dL (8.4-10.2); Carbon Dioxide 16 mmol/L (22-30); Chloride 105 mmol/L (98-107); Estimated CRCL calculation 112 ml/min; Estimated Glomerular Filt Rate > 60; Glucose 239 mg/dL (65-110); Lipase 40 U/L (23-300); Potassium 4.1 mmol/L (3.4-5.0); Sodium 135 mmol/L (137-145)
[2024-03-23] MEDS: ONDANSETRON INJ 4 MG/2 ML VIAL IV PUSH ×4 (00:25→16:19)
[2024-03-23] MEDS: MORPHINE SULFATE (*CRX) 4 MG/ML INJ IV PUSH ×5 (00:25→08:50)
[2024-03-23 00:26] LABS: Prothrombin Time 13.5 Seconds (11.1-14.7)
[2024-03-23 00:27] LABS: Partial Thromboplastin Time 25.7 Seconds (22.3-36.8)
--- NOTE | 2024-03-23 00:29 | ECG_ITS ---
Test Date: 2024-03-23 00:29:59 Measurements Intervals [place] Rate: 102 P: 71 AL: 189 QRS: 73 QRSD: 89 T: 75 QT: 338 QTc: 441 Interpretive Statements SINUS TACHYCARDIA ABNORMAL RHYTHM ECG Compared to ECG 03/15/2024 14:55:47 NO OBVIOUS CHANGE, CURRENT ECG HAS BASELINE ARTIFACT Electronically Signed On 03-23-2024 07:26:49 CDT by Jose Contreras M.D.
[2024-03-23 00:30] LABS: Alanine Aminotransferase 19 U/L (6-35)
[2024-03-23 00:34] LABS: Troponin I < 0.012 ng/mL (0.000-0.034)
--- NOTE | 2024-03-23 01:32 | PC.NURSE ---
Patient being taken to CT at this time.
[2024-03-23 02:45] LABS: Toxigenic C. Diff POSITIVE (NEGATIVE)
--- NOTE | 2024-03-23 02:56 | ECG_ITS ---
Test Date: 2024-03-23 02:58:37 Measurements Intervals [place] Rate: 112 P: 60 MO: 180 QRS: 59 QRSD: 89 T: 69 QT: 338 QTc: 463 Interpretive Statements SINUS TACHYCARDIA POOR R-WAVE PROGRESSION BORDERLINE ECG Compared to ECG 03/23/2024 00:29:59 NO SIGNIFICANT CHANGE Electronically Signed On 03-23-2024 07:28:26 CDT by Jose Contreras M.D.
[2024-03-23 03:09] LABS: Reflex Lactic Acid Yes or No Add Lactic
[2024-03-23 03:34] LABS: Troponin I < 0.012 ng/mL (0.000-0.034)
--- NOTE | 2024-03-23 03:40 | ED.GENADULT ---
HPI - General Adult General Chief complaint: Abdominal Pain Stated complaint: LLQ pain, CP, R upper CP Time Seen by Provider: 03/22/24 23:36 History of Present Illness HPI narrative: Patient is a 43-year-old female who presents emergency department with chief complaint of abdominal pain and diarrhea. Patient reports she has prior history of C diff colitis reports also a paraplegic patient states that she started having diarrhea again it is uncontrollable similar to when she has had C diff before in the past. The patient reports she has generalized abdominal pain reports no fever Related Data Home Medications Medication Instructions Recorded Confirmed atorvastatin 20 mg tablet 20 mg PO HS 11/10/23 03/12/24 trazodone 100 mg tablet 100 mg PO HS 11/10/23 03/12/24 melatonin 10 mg tablet 10 mg PO HS 01/12/24 03/12/24 aspirin 81 mg tablet 81 mg PO DAILY 02/10/24 03/12/24 Allergies Allergy/AdvReac Type Severity Reaction Status Date / Time azithromycin Allergy Unknown Hives Verified 03/22/24 23:34 amoxicillin AdvReac Unknown Verified 03/22/24 23:34 Review of Systems Review of Systems: A 10 system review of systems was completed on the patient and is negative except for what is stated in the HPI. Nursing and ancillary documentation was reviewed. [facility] Past Medical History Medical History Abnormality of rectum Aortic thrombus Clostridium difficile diarrhea Deep venous thrombosis Diabetic peripheral neuropathy Hyperlipidemia Intractable nausea and vomiting Ischemic colitis Neurogenic bladder Paraplegia Spinal cord stroke Type 1 diabetes mellitus Surgical History Surgical History History of aorto-femoral bypass [facility] History of partial amputation of toe 4th and 5th toe bilaterally Family History Family History Mother Acute myocardial infarction Diabetes mellitus Hypertension Father History of blood clots Social History Social History Social History: Surrogate medical decision maker: Ml Leonedi, mother. Code status: Full code. Smoking packs per day: 1.5 Smoking cigarettes per day: 30.0 Years smoked: 24 Smoking pack-years: 36.00 Smoking status: Current every day smoker Tobacco type: cigarettes Second hand tobacco smoke exposure: No Alcohol intake: never Substance use: current Substance use type: marijuana Other substance usage details: daily Last use: 02/09/24 Do You Feel Safe in your Home?: Yes Lack of Transportation: No Lack of Food: Never True Current Housing: I Have Housing Concerned About Future Housing: No Difficulty Paying Gas/Electric Bills: No Difficulty Paying for Meds: No Currently Unemployed: No Education: High School Diploma/GED Difficulty w/ Childcare or Family Care: No Additional living arrangements comments: Lives with spouse and children in [place]. Spiritual care concerns: No Exam Narrative: GENERAL: Well-appearing, well-nourished, and in no acute distress. HEAD: Normocephalic, atraumatic. EYES: PERRLA and EOMI. ENT: Nares clear, no rhinorrhea or epistaxis. Mucous membranes moist. NECK: Supple. CHEST: Clear to auscultation. No respiratory distress. HEART: Regular rate and rhythm. No murmur heard. Normal peripheral pulses. ABDOMEN: Soft, diffuse mild tenderness nondistended, normal active bowel sounds. EXTREMITIES: Normal range of motion. No edema. SKIN: Warm, dry, no rash. NEURO: No focal deficits. At baseline neurological status Alert and oriented x3. PSYCH: Normal mood and affect. Course Vital Signs Vital signs: Vital Signs Temperature 36.9 C 03/22/24 23:28 Pulse Rate 100 03/22/24 23:28 Respiratory Rate 20 03/22/24 23:28 Blood
[2024-03-23 04:19] LABS: Lactic Acid 1.8 mmol/L (0.7-2.0)
[2024-03-23] MEDS: SODIUM CHLORIDE 0.9% IV 1,000 ML 125 ML IV CONT ×3 (05:33→20:46)
[2024-03-23 06:21] LABS: Add Urine Microscopic? YES; Appearance Urine Cloudy (Clear); Bacteria Urine 4+ /hpf; Bilirubin Urine Negative (Negative); Blood Urine Negative (Negative); Color Urine Yellow (Yellow); Glucose Urine UA Negative (Negative); Ketones Urine Negative (Negative); Leukocyte Esterase Ur Negative LEU/UL (Negative); Need Manual Microscopic Reviewed; Nitrate Urine Negative (Negative); Non Pathogenic Casts 0-2; Protein Urine Negative (Negative); RBC Urine 0-2 /hpf (0-2); Specific Grav Ur 1.031 (1.001-1.035); Squamous Epithelial Cell Urine None Seen /hpf (Few); Urobilinogen Urine 0.2 mg/dL (<2.0); WBC Urine 0-5 /hpf (0-3); pH Urine 5.5 (5.0-9.0)
[2024-03-23 07:32] LABS: Troponin I < 0.012 ng/mL (0.000-0.034)
[2024-03-23] MEDS: FIDAXOMICIN 200 MG TABLET PO ×2 (08:44→20:48)
[2024-03-23] MEDS: CITALOPRAM HYDROBROMIDE 20 MG TABLET PO (08:44)
[2024-03-23] MEDS: MORPHINE SULFATE (*CRX) 2 MG/ML INJ 1 MG IV PUSH ×2 (12:26→16:20)
--- NOTE | 2024-03-23 13:27 | PM.IMHP ---
H&P: HPI History of Present Illness Date/Time: 03/23/24 13:27 Chief Complaint: Abdominal pain Diarrhea Narrative: 43-year-old female with past medical history of DVT, diabetes mellitus, C diff presented with chief complaints of abdominal pain and diarrhea. Patient is paraplegic. Denies any fevers, nausea, vomiting. CT abdomen pelvis showed Extensive wall thickening of the distal sigmoid colon and rectum, with surrounding inflammatory change, compatible with colitis/proctitis. Large amount of stool also present. Correlate for fecal impaction/constipation.Sacral decubitus ulcer, with stable malalignment of the C1-C2 level in the coccyx. Questionable chronic osteomyelitis at this level. Stable extensive left renal volume loss and heterogeneous enhancement, with focal volume loss and heterogeneous enhancement at the right lower renal pole. Findings could reflect sequelae renal infarcts. Correlate for pyelonephritis/UTI. Stable 1.5 cm left adrenal nodule, indeterminate. tested positive for C diff infection Review of Systems Review of Systems: All systems reviewed & are unremarkable except as noted in HPI and below PMFSH Past Medical History Medical History Abnormality of rectum Aortic thrombus Clostridium difficile diarrhea Deep venous thrombosis Diabetic peripheral neuropathy Hyperlipidemia Intractable nausea and vomiting Ischemic colitis Neurogenic bladder Paraplegia Spinal cord stroke Type 1 diabetes mellitus Surgical History Surgical History History of aorto-femoral bypass [facility] History of partial amputation of toe 4th and 5th toe bilaterally Family History Family History Mother Acute myocardial infarction Diabetes mellitus Hypertension Father History of blood clots Social History Social History Social History: Surrogate medical decision maker: Ml Aguilar, mother. Code status: Full code. Smoking packs per day: 1.5 Smoking cigarettes per day: 30.0 Years smoked: 24 Smoking pack-years: 36.00 Smoking status: Current every day smoker Second hand tobacco smoke exposure: No Alcohol intake: never Substance use: current Substance use type: marijuana Other substance usage details: daily Do You Feel Safe in your Home?: Yes Lack of Transportation: No Lack of Food: Never True Current Housing: I Have Housing Concerned About Future Housing: No Difficulty Paying Gas/Electric Bills: No Difficulty Paying for Meds: No Currently Unemployed: No Education: High School Diploma/GED Difficulty w/ Childcare or Family Care: No Additional living arrangements comments: Lives with spouse and children in [place]. Spiritual care concerns: No Meds Home Medications and Allergies Home Medications Medication Instructions Recorded Confirmed Type atorvastatin 20 mg tablet 20 mg PO HS 11/10/23 03/23/24 History trazodone 100 mg tablet 100 mg PO HS 11/10/23 03/23/24 History melatonin 10 mg tablet 10 mg PO HS 01/12/24 03/23/24 History aspirin 81 mg tablet 81 mg PO DAILY 02/10/24 03/23/24 History nortriptyline 10 mg capsule 10 mg PO HS #30 caps 02/18/24 03/23/24 Rx polyethylene glycol 3350 17 gram 17 g PO QAM #30 ea 03/15/24 03/23/24 Rx oral powder packet (Miralax) citalopram 20 mg tablet (Celexa) 20 mg PO QA 03/23/24 03/23/24 History Allergies Allergy/AdvReac Type Severity Reaction Status Date / Time azithromycin Allergy Unknown Hives Verified 03/22/24 23:34 amoxicillin AdvReac Unknown Verified 03/22/24 23:34 Vital Signs Vital Signs - 24 hr 03/22/24 23:28 03/22/24 23:36 03/22/24 23:45 Temperature 98.5 F Pulse Rate 100 102 H Respiratory Rate 20 17 23 H Blood Pressure 170/92 H Pulse Oximetry 98 97 98 Oxygen Delivery Room Air Counts Include 234 Beds At [facility]
[2024-03-23] MEDS: HEPARIN SODIUM 5,000 UNITS/ML VIAL 5000 UNITS SUB-Q ×2 (16:19→20:48)
--- NOTE | 2024-03-23 16:39 | PC.NURSE ---
Spoke to Dr Viveros on phone at [phone], patient reporting her stitches in bilateral 4th and 5th toes were scheduled to be removed today 03/23/[address] Viveros/ hospitalist to follow up tomorrow for possible removal.
[2024-03-23] MEDS: ATORVASTATIN 20 MG TABLET PO (20:47)
[2024-03-23] MEDS: MELATONIN 5 MG TABLET 10 MG PO (20:48)
[2024-03-23] MEDS: traZODone HCL 50 MG TABLET 100 MG PO (20:48)
[2024-03-23] MEDS: NORTRIPTYLINE HCL 10 MG CAPSULE PO (20:48)
--- NOTE | 2024-03-23 21:46 | PC.NURSE ---
Pt demanded IV pain meds. I explained to her that I had a Percocet 5 pill I could give her but the IV meds had been discontinued. She consented to the Percocet 5 pill. I listed and explained all the meds I was giving her that were scheduled in addition to the Percocet. She said she understood and I handed her the med cup with all the pills in it. Pt became irate and started throwing things on the floor. She then ordered me to pull the Percocet from the med cup because she was now refusing to take it. She stated that it causes her constipation (pt has been having diarrhea) and if I had known you were going to give me IV pain meds I would not have ever come to the hospital! I verified that she did not want the Percocet, reiterating that there was nothing else available for pain, and removed the pill from the med cup upon acknowledging that she did not want it. She was irate and ranting about not getting IV pain med. I then left the room. About 10-15 minutes later, pt called the nurses' station complaining about anything and everything (many of the items were fabricated and not feasible) clearly still irate. Charge nurse, Operational Meteorologist and Hospitalist made aware.
[2024-03-24 05:25] VITALS: BP 140/81; PULSE 98; RESP 16; TEMP 36.9; O2SAT 97
[2024-03-24] MEDS: HEPARIN SODIUM 5,000 UNITS/ML VIAL 5000 UNITS SUB-Q ×3 (05:27→20:51)
[2024-03-24] MEDS: oxyCODONE/ACETAMINOPHEN (*CRX) 5-325 MG TABLET 1 TABLET PO (06:41)
[2024-03-24] MEDS: FIDAXOMICIN 200 MG TABLET PO ×2 (08:18→20:41)
[2024-03-24] MEDS: CITALOPRAM HYDROBROMIDE 20 MG TABLET PO (08:18)
[2024-03-24] MEDS: oxyCODONE/ACETAMINOPHEN (*CRX) 10-325 MG TABLET 1 TAB PO ×2 (09:43→18:55)
[2024-03-24] MEDS: ONDANSETRON INJ 4 MG/2 ML VIAL IV PUSH (09:43)
--- NOTE | 2024-03-24 11:36 | PM.IMPN ---
Progress Note: A&P Assessment and Plan (1) C. difficile colitis: Code(s): A04.72 - Enterocolitis due to Clostridium difficile, not specified as recurrent Status: Acute Assessment and Plan: Last diarrheal stool 03/22 Last BM 03/23 was soft partially formed No BM in the last 24 hours Patient on Dificid, white blood cell count significantly elevated on last set of labs, patient refused labs initially today but subsequently consented to labs and white blood cell count has improved Patient complaining of stabbing sharp lower abdominal pain on the left lower quadrant Hyperactive bowel sounds noted (2) Abdominal pain: Code(s): R10.9 - Unspecified abdominal pain Status: Acute Assessment and Plan: See above Plan 43-year-old female with past medical history of DVT, diabetes mellitus, C diff presented with chief complaints of abdominal pain and diarrhea. Patient is paraplegic. Denies any fevers, nausea, vomiting. CT abdomen pelvis showed Extensive wall thickening of the distal sigmoid colon and rectum, with surrounding inflammatory change, compatible with colitis/proctitis. 1. Acute C diff colitis: Continue with IV fluids Started on fidaxomicin Monitor for stool output Monitor leukocytosis Will call GI consult if fails to improve CT also shows constipation, will hold off any stool softeners 2. Resume other home meds 3. Code status: Full 4. DVT prophylaxis: Heparin subQ 5. Disposition: Likely discharge tomorrow as long as patient does not develop signs of bowel obstruction or worsening labs. Time Spent With Patient Time: Time spent 40 minutes with medical management and additional 30+ minutes on procedure of suture removal Time with patient: Greater than 35 minutes Subjective Date/time seen: 03/24/24 14:36 Interval history: Patient upset about IV pain medication having been discontinued. Marcos catheter inserted last night his nursing staff stated that patient was resisting staff performing straight cath as well as patient not wanting to do straight cath on herself because his equipment is different than which she uses at home minute is not as easy to catheterize with our equipment. Patient initially refused labs. When I was able to around in speak with her we explained that her prior labs had a significantly elevated white blood cell count with signs of metabolic acidosis and we needed subsequent labs to determine if our current treatment plan was sufficiently improving her significant lab abnormalities. Patient stated that she initially refused labs because she was mad at the assistant shift supervisor nurse. She agreed to get labs drawn once I was able to discuss this with her. Additionally, patient was supposed to have sutures removed from her 4th and 5th partial toe amputations on bilateral feet yesterday but she was hospitalized. Procedure: Suture Removal Sutures were removed by this provider which took over 30 minutes of time due to very tightly placed mattress sutures in place which were very challenging to remove properly. Right 5th toe had a retained suture that required gentle debridement of scab to retrieve and when scab came up there was granulating tissue with minor wound dehiscence and visible subcutaneous (Vicryl?) suture material. Wound care requested to come evaluate again and make recommendations. Review of Systems Review of Systems: All systems reviewed & are unremarkable except as noted in HPI and below Exam Narrative: GENERAL: Appears uncomfortable but otherwise improved HEAD: Normocephalic, atraumatic. EYES: PERRLA and EOMI. ENT: Nares clear, no rhinorrhea or epistaxis. Mucous membranes moist. NECK: Supple. CHEST: Clear to auscultation. No respiratory distress. HEART: Regular rate and rhythm. No murmur heard. Normal peripheral pulses. ABDOMEN: Soft, diffuse mild tenderness nondistended, hyperactive bowel sounds. : Marcos catheter draining clear yellow urine EXTREM
[2024-03-24 13:05] VITALS: BMI 22.9
[2024-03-24 14:00] VITALS: BP 145/72; PULSE 87; RESP 20; TEMP 36.2; O2SAT 99
[2024-03-24 14:56] LABS: Basophils Percent Auto 0.7 % (0.2-1.2); Eosinophils Absolute Auto 0.1 K/mm3 (0-0.3); Eosinophils Percent Auto 2.3 % (0-4.4); Hematocrit 29.5 % (37.0-47.0); Hemoglobin 9.9 g/dL (12.0-15.0); Immature Granulocyte Absolute 0.02 K/mm3 (0.00-0.031); Immature Granulocyte Percent A 0.3 % (0-0.5); Lymphocytes Percent Auto 36.6 % (18.3-44.2); Mean Corpuscular HGB Conc 33.6 g/dl (32-36); Mean Corpuscular Hemoglobin 30.7 pg (26-34); Mean Corpuscular Volume 91.6 fl (80-100); Mean Platelet Volume 10.1 fl (7.4-10.4); Monocytes Absolute Auto 0.3 K/mm3 (0.1-0.6); Monocytes Percent Auto 5.6 % (2.6-8.5); Neutrophils Absolute Auto 3.1 K/mm3 (1.3-6.7); Neutrophils Percent Auto 54.5 % (45.5-73.1); Platelet Count Result 193 k/mm3 (150-375); Red Blood Count 3.22 M/mm3 (4.2-5.4); White Blood Count 5.7 K/mm3 (4.5-10.0)
[2024-03-24] MEDS: MORPHINE SULFATE (*CRX) 4 MG/ML INJ IV PUSH (15:03)
[2024-03-24 15:21] LABS: Alanine Aminotransferase 14 U/L (6-35); Albumin Level 3.4 g/dL (3.5-5.1); Alkaline Phosphatase 89 U/L (38-126); Anion Gap 7 mmol/L (4-12); Aspartate Amino Transferase 20 U/L (14-36); Bilirubin,Total 0.2 mg/dL (0.2-1.3); Blood Urea Nitrogen 14 mg/dL (7-17); Carbon Dioxide 22 mmol/L (22-30); Chloride 108 mmol/L (98-107); Estimated CRCL calculation 112 ml/min; Estimated Glomerular Filt Rate > 60; Glucose 138 mg/dL (65-110); Magnesium 1.7 mg/dL (1.6-2.3); Potassium 3.8 mmol/L (3.4-5.0); Sodium 137 mmol/L (137-145)
[2024-03-24 15:48] LABS: Erythrocyte Sedimentation Rate 102 mm/hr (0-20)
[2024-03-24 16:13] LABS: CRP 3.3 mg/dL (<1.0)
[2024-03-24] MEDS: traZODone HCL 50 MG TABLET 100 MG PO (20:40)
[2024-03-24] MEDS: NORTRIPTYLINE HCL 10 MG CAPSULE PO (20:41)
[2024-03-24] MEDS: ATORVASTATIN 20 MG TABLET PO (20:41)
[2024-03-24] MEDS: MELATONIN 5 MG TABLET 10 MG PO (20:51)
[2024-03-24 22:00] VITALS: BP 122/64; PULSE 107; RESP 14; TEMP 37.1; O2SAT 98
[2024-03-25] MEDS: oxyCODONE/ACETAMINOPHEN (*CRX) 10-325 MG TABLET 1 TAB PO ×2 (03:42→12:26)
[2024-03-25 05:51] VITALS: BP 109/53; PULSE 84; RESP 22; TEMP 36.6; O2SAT 95
[2024-03-25] MEDS: HEPARIN SODIUM 5,000 UNITS/ML VIAL 5000 UNITS SUB-Q (06:17)
[2024-03-25 08:00] VITALS: O2SAT 95
[2024-03-25] MEDS: ASPIRIN 81 MG CHEWABLE TABLET PO (08:11)
[2024-03-25] MEDS: CITALOPRAM HYDROBROMIDE 20 MG TABLET PO (08:11)
[2024-03-25] MEDS: FIDAXOMICIN 200 MG TABLET PO (08:11)
[2024-03-25 08:44] LABS: Hematocrit 31.2 % (37.0-47.0); Hemoglobin 10.2 g/dL (12.0-15.0); Mean Corpuscular HGB Conc 32.7 g/dl (32-36); Mean Corpuscular Hemoglobin 30.9 pg (26-34); Mean Corpuscular Volume 94.5 fl (80-100); Mean Platelet Volume 10.2 fl (7.4-10.4); Platelet Count Result 190 k/mm3 (150-375); White Blood Count 7.3 K/mm3 (4.5-10.0)
[2024-03-25 08:58] LABS: Alanine Aminotransferase 14 U/L (6-35); Albumin Level 3.5 g/dL (3.5-5.1); Alkaline Phosphatase 82 U/L (38-126); Anion Gap 7 mmol/L (4-12); Aspartate Amino Transferase 16 U/L (14-36); Bilirubin,Total 0.2 mg/dL (0.2-1.3); Blood Urea Nitrogen 18 mg/dL (7-17); Calcium 9.1 mg/dL (8.4-10.2); Carbon Dioxide 21 mmol/L (22-30); Chloride 110 mmol/L (98-107); Estimated CRCL calculation 112 ml/min; Estimated Glomerular Filt Rate > 60; Glucose 114 mg/dL (65-110); Potassium 4.2 mmol/L (3.4-5.0); Sodium 138 mmol/L (137-145)
--- NOTE | 2024-03-25 12:49 | PM.DS ---
DS: Admitting Diagnosis Discharge Date 03/25/2024 Admitting Diagnosis C-diff/Fecal impaction DS: Discharge Diagnosis Discharge Diagnosis (1) C. difficile colitis: Code(s): A04.72 - Enterocolitis due to Clostridium difficile, not specified as recurrent Status: Acute (2) Abdominal pain: Code(s): R10.9 - Unspecified abdominal pain Status: Acute Assessment and Plan: See above DS: Summary Hospital Course Reason for hospitalization: C diff colitis Hospital Course: Patient is a 43 old female who had presented to the emergency department with worsening abdominal pain well as nausea and vomiting. In the emergency department CT abdomen was showing colitis C diff however also showed fecal impaction at the:continued to be positive patient was then admitted to the medical unit for further treatment. Patient was started on IV fluids and Dificid resumed. patient with mild leukocytosis initially on admission which downtrended with treatment at that time no need to consult GI patient was passing stool and gas. patient with overall improvement with treatment she was discharged back to home with continued Can Dificid medication. patient's urine did show UTI however recently treated with IV antibiotic therapy this is likely colonization no treatment was given during hospitalization. Status at Discharge Functional status at discharge: wheelchair bound Overall status at discharge: patient is progressing back to baseline Time Spent with Patient Time attestation: Total time spent providing and/or coordinating discharge services: Time spent: Greater than 30 minutes Exam Narrative: Physical Exam: GENERAL: Alert and oriented x 3. No acute distress. HEENT: Moist mucous membranes. LUNGS: Clear to auscultation bilaterally. No accessory muscle use. CARDIOVASCULAR: Regular rate and rhythm. No murmur. No JVD. S1-S2 ABDOMEN: Soft, non tenderness and non-distended. Normal active bowels all 4 quadrants EXTREMITIES: No edema. Non-tender SKIN: No rashes or lesions. Skin warm, dry. NEUROLOGIC: No focal neurological deficits. PSYCHIATRIC: Appropriate mood and affect. DS: Data Data Completed and Pending Labs on day of discharge: Labs from last 24 hours 03/25/24 03/24/24 08:38 14:49 WBC 7.3 5.7 RBC 3.30 L 3.22 L Hgb 10.2 L 9.9 L D Hct 31.2 L 29.5 L MCV 94.5 91.6 MCH 30.9 30.7 MCHC 32.7 33.6 RDW 12.0 12.0 Plt Count 190 193 MPV 10.2 10.1 Immature Gran % (Auto) 0.3 Neut % (Auto) 54.5 Lymph % (Auto) 36.6 [place] % (Auto) 5.6 Eos % (Auto) 2.3 Baso % (Auto) 0.7 Lymph # (Auto) 2.10 [place] # (Auto) 0.3 Eos # (Auto) 0.1 Baso # (Auto) 0.0 Abs Immat Gran (auto) 0.02 Absolute Neuts (auto) 3.1 Absolute Nucleated RBC 0.000 Nucleated RBC % 0.0 ESR 102 H Sodium 138 137 Potassium 4.2 3.8 Chloride 110 H 108 H Carbon Dioxide 21 L 22 Anion Gap 7 7 BUN 18 H 14 D Creatinine 0.70 0.70 Estim Creat Clear Calc 112 112 Estimated GFR > 60 > 60 Glucose 114 H 138 H Calcium 9.1 9.0 Magnesium 1.7 Total Bilirubin 0.2 0.2 AST 16 20 ALT 14 14 Alkaline Phosphatase 82 89 C-Reactive Protein 3.3 H Total Protein 7.0 6.0 L Albumin 3.5 3.4 L Procalcitonin 7.0 Imaging Radiologist's impression: Radiology Results: ITS Impressions Chest X-Ray 03/23/24 05:52 Impression: Normal chest. Abdomen/Pelvis CT 03/23/24 06:07 Impression: Extensive wall thickening of the distal sigmoid colon and rectum, with surrounding inflammatory change, compatible with colitis/proctitis. Large amount of stool also present. Correlate for fecal impaction/constipation. Sacral decubitus ulcer, with stable malalignment of the C1-C2 level in the coccyx. Questionable chronic osteomyelitis at this level. Stable extensive left renal volume loss and heterogeneous enhancement, with focal volume loss and heterogeneous enha
[2024-03-25 14:00] VITALS: BP 127/65; PULSE 100; RESP 18; TEMP 36.9; O2SAT 99
--- NOTE | 2024-03-25 16:00 | PC.NURSE ---
Marcos d/c prior to discharge. Patient straight caths at home.
== END 2024-03-25 16:01 | disposition home health service (06) ==
LOC: ANHED 03-23 03:44 → ANH3MEDSUR 03-23 04:49
PROVIDERS: Nurse Practitioner; Admitting Provider Internal Medicine; Emergency Provider Emergency Medicine; PCP Family Medicine; Visit Provider Nurse Practitioner Family
DX: A04.72 Enterocolitis due to Clostridium difficile, not specified as recurrent (principal); U07.1 COVID-19; G82.20 Paraplegia, unspecified; L89.154 Pressure ulcer of sacral region, stage 4; E10.42 Type 1 diabetes mellitus with diabetic polyneuropathy; E78.5 Hyperlipidemia, unspecified; N31.9 Neuromuscular dysfunction of bladder, unspecified; F17.210 Nicotine dependence, cigarettes, uncomplicated; Z98.890 Other specified postprocedural states; Z86.718 Personal history of other venous thrombosis and embolism; Z89.429 Acquired absence of other toe(s), unspecified side
CPT/HCPCS: 36415; 71045; 74177; 80053; 81001; 83605; 83690; 83735; 84145; 84484; 85025; 85027; 85610; 85652; 85730; 86140; 87493; 93005; 96361; 96372; 96374; 96375; 96376; 99285; A9270; G0378; J1644; J2270; J2405; J7030; Q9967

== ENCOUNTER 2024-03-28 01:36 | Observation (INO) | payer OTHER, MEDICAID, SELFPAY ==
--- NOTE | ~2024-03-28 | CT_ITS ---
EXAMINATION: CT abdomen pelvis w con DATE: 03/28/2024 04:00 INDICATION: Abdominal pain. Nausea and vomiting. TECHNIQUE: Computed tomography (CT) of the abdomen and pelvis was performed with 100 mL Omnipaque 350 intravenous contrast. Automated exposure control and iterative reconstruction technique were employe d. The dose-length product was 682.66 mGy-cm. COMPARISON: CT abdomen and pelvis 03/23/2024, 11/10/2023, 01/11/24 FINDINGS: The visualized portions of the lung bases demonstrate mild atelectasis on the right. No ple ural effusion. The heart size is normal. There is a small pericardial effusion. The liver, gallbladde r, spleen, and pancreas are normal. There is a 12 mm mass of fat in right adrenal gland, consistent w ith a myelolipoma. There is a 14 mm mass in left adrenal gland measuring soft tissue attenuation, sta ble from 11/10/2023, likely an adenoma. There is mild atrophy of right kidney and moderate atrophy of left kidney. There is a 3 mm stone in left kidney. There is a large volume of stool in the colon. The re is wall thickening of the rectosigmoid. There is perirectal fat stranding. The appendix is normal. There is total occlusion of [place] abdominal aorta with patent aortobiiliac bypass graft. There is a stent in the left common iliac artery. There is a small volume of ascites. There is chronic wall thi ckening of the bladder. There are no pathologically enlarged lymph nodes. There is mild thoracic and lumbar spondylosis. There is mild chronic anterior wedging of multiple lower thoracic vertebral georgina s. There is a sacral decubitus ulcer. There are chronic erosions of the coccyx. IMPRESSION: 1. Wall thickening of the rectosigmoid, consistent with colitis. 2. Sacral decubitus ulcer with chronic osteomyelitis of the coccyx. 3. Small volume of ascites. 4. Small pericardial effusion. Reviewed, dictated and finalized at location A.
[2024-03-28 01:44] VITALS: BP 185/100; PULSE 105; RESP 18; TEMP 36.8; O2SAT 100
--- NOTE | 2024-03-28 01:50 | ED.GENADULT ---
HPI - General Adult General Chief complaint: Nausea/Vomiting/Diarrhea <Mamadou Bowles MD - Last Filed: 03/28/24 07:02> Stated complaint: abdominal pain <Mamadou Bowles MD - Last Filed: 03/28/24 07:02> Time Seen by Provider: 03/28/24 01:50 <Mamadou Bowles MD - Last Filed: 03/28/24 07:02> Source: patient and EMS <Mamadou Bowles MD - Last Filed: 03/28/24 07:02> Mode of arrival: ambulatory <Mamadou Bowles MD - Last Filed: 03/28/24 07:02> Limitations: no limitations <Mamadou Bowles MD - Last Filed: 03/28/24 07:02> History of Present Illness HPI narrative: 43-year-old white female brought in by EMS complaining of lower abdominal pain,nausea vomiting dry heaves with diarrhea this started 2 hours ago discharge from [facility] after having clustered in difficile. patient was discharged SaturdayMarch 22 for enterocolitis due to Clostridium difficile and fecal impaction and was to continue her Dificid p.o. discharge summary showed she had Enterocolitis due to Clostridium difficile and abdominal pain. She had a CT scan on 03/23/2024 which showed extensive wall thickening of the distal sigmoid colon and rectum, with surrounding inflammatory change, compatible with colitis/proctitis. Large amount of stool was also present sacral decubitus ulcer with stable malalignment of C1-C2 level at the coccyx questionable chronic osteomyelitis at that level. Stable extensive left renal volume loss and heterogeneous enhancement, with focal volume loss and heterogeneous enhancement at the right lower renal pole could reflect sequela to renal infarct and 1.5 cm stable left adrenal nodule indeterminate. patient complains of lower abdominal pain since she ate today and was doing fine until a few hours ago. Denies any other complaints <Mamadou Bowles MD - Last Filed: 03/28/24 07:02> Related Data Home medications: Home Medications Medication Instructions Recorded Confirmed atorvastatin 20 mg tablet 20 mg PO HS 11/10/23 03/28/24 trazodone 100 mg tablet 100 mg PO HS 11/10/23 03/28/24 melatonin 10 mg tablet 10 mg PO HS 01/12/24 03/28/24 aspirin 81 mg tablet 81 mg PO DAILY 02/10/24 03/28/24 citalopram 20 mg tablet (Celexa) 20 mg PO QAM 03/23/24 03/28/24 <Mamadou Bowles MD - Last Filed: 03/28/24 07:02> Allergies/adverse reactions: Allergies Allergy/AdvReac Type Severity Reaction Status Date / Time azithromycin Allergy Unknown Hives Verified 03/22/24 23:34 amoxicillin AdvReac Unknown Verified 03/22/24 23:34 <Mamadou Bowles MD - Last Filed: 03/28/24 07:02> [facility] Past Medical History Medical History: Medical History Abnormality of rectum Aortic thrombus Clostridium difficile diarrhea Deep venous thrombosis Diabetic peripheral neuropathy Hyperlipidemia Intractable nausea and vomiting Ischemic colitis Neurogenic bladder Paraplegia Spinal cord stroke Type 1 diabetes mellitus <Mamadou Bowles MD - Last Filed: 03/28/24 07:02> Surgical History Surgical History: Surgical History History of aorto-femoral bypass [facility] History of partial amputation of toe 4th and 5th toe bilaterally <Mamadou Bowles MD - Last Filed: 03/28/24 07:02> Family History Family History: Family History Mother Acute myocardial infarction Diabetes mellitus Hypertension Father History of blood clots <Mamadou Bowles MD - Last Filed: 03/28/24 07:02> Social History Social History: Social History Social History: Surrogate medical decision maker: Ml Aguilar, mother. Code status: Full code. Smoking packs per day: 1.5 Smoking cigarettes per day: 30.0 Years smoked: 24 Smoking pack-y
[2024-03-28] MEDS: ONDANSETRON INJ 4 MG/2 ML VIAL IV PUSH ×3 (02:00→09:27)
[2024-03-28] MEDS: SODIUM CHLORIDE 0.9% IV 1,000 ML 999 ML IV CONT ×2 (02:00→03:17)
[2024-03-28] MEDS: fentaNYL CITRATE INJ (*CRX) 100 MCG/2 ML VIAL 50 MCG IV PUSH (02:00)
[2024-03-28 02:19] LABS: Hematocrit 38.6 % (35.0-49.0); Hemoglobin 13.1 g/dL (12.0-15.0); Mean Corpuscular HGB Conc 33.9 g/dL (32-36); Mean Corpuscular Hemoglobin 29.8 pg (27.0-31.0); Mean Corpuscular Volume 87.9 fL (78.0-102.0); Mean Platelet Volume 9.8 fl (9.2-11.8); Platelet Count Result 291 K/mm3 (150-420); Red Blood Count 4.39 M/mm3 (4.20-5.40); Red Cell Distribution Width 11.9 % (11.6-14.4); White Blood Count 17.6 K/mm3 (4.8-10.8)
[2024-03-28 02:27] LABS: Add Urine Microscopic? YES; Appearance Urine Cloudy (Clear); Bilirubin Urine Negative (Negative); Blood Urine 2+ (Negative); Color Urine Yellow (Yellow); Glucose Urine UA 2+ (Negative); Ketones Urine Trace (Negative); Leukocyte Esterase Ur Trace LEU/UL (Negative); Nitrate Urine Negative (Negative); Protein Urine 1+ (Negative)
[2024-03-28 02:32] LABS: Alanine Aminotransferase 17 U/L (14-59); Albumin Level 3.6 g/dL (3.4-5.0); Alkaline Phosphatase 116 U/L (46-116); Anion Gap 12 mmol/L (4-12); Aspartate Amino Transferase < 10 U/L (15-37); Bilirubin,Total 0.3 mg/dL (0.00-1.00); Blood Urea Nitrogen 20 mg/dL (7-18); Calcium 9.8 mg/dL (8.5-10.1); Carbon Dioxide 25 mmol/L (21-32); Chloride 102 mmol/L (98-108); Estimated CRCL calculation 80 ml/min; Estimated Glomerular Filt Rate 59; Glucose 243 mg/dL (70-99); Osmolality Calculated 298 mOsm/kg (285-295); Potassium 3.6 mmol/L (3.5-5.1); Sodium 139 mmol/L (136-145); Total Protein 7.5 g/dL (6.4-8.2)
[2024-03-28 02:33] LABS: Amorphous Sediment Urine Moderate; Bacteria Urine 3+ /hpf; Squamous Epithelial Cell Urine Rare /hpf (Few); WBC Urine 0-3 /hpf (0-3)
[2024-03-28 02:37] LABS: Lactic Acid Reflex 3.8 mmol/L (0.4-2.0)
[2024-03-28] MEDS: METOCLOPRAMIDE HCL INJ 10 MG/2 ML VIAL IV PUSH (02:45)
[2024-03-28] MEDS: HYDROmorphone HCL INJ (*CRX) 2 MG/ML VIAL 1 MG IV PUSH ×4 (02:45→21:46)
--- NOTE | 2024-03-28 03:18 | PC.NURSE ---
Pt brought back from CT, unable to operform CT w/ contrast due to contrast injector not working properly. IF unable to fix, will have to send to [place] for scan. Pt informed on POC. Pt resting at this time, SCOUT.
[2024-03-28 03:20] VITALS: BP 141/68; PULSE 96; RESP 18; TEMP 36; O2SAT 96
--- NOTE | 2024-03-28 03:28 | PC.NURSE ---
Call placed to house supv. Lopez at [facility] about need to send pt for CT w/ contrast. They will alert staff and radiology of pt need for transfer to have scan done and to return to ER as soon as scan is complete.
--- NOTE | 2024-03-28 03:40 | PC.NURSE ---
LINDA caldwell called back and stated the injector might be working and we will try again before trying to send to [place]. Call back placed to [place] and spoke to Jessica carreon about change in plans and that we will try our injector again.
[2024-03-28] MEDS: levoFLOXacin 500 MG/D5W 100 ML 500 MG/100 ML BAG 100 MG IVPB (04:02)
--- NOTE | 2024-03-28 04:31 | PC.NURSE ---
Pt resting, continuing to monitor and await CT scan results. Call atkins at side.
[2024-03-28] MEDS: HYDROmorphone HCL INJ (*CRX) 2 MG/ML VIAL 0.5 MG IV PUSH ×2 (04:42→07:31)
--- NOTE | 2024-03-28 04:50 | PC.NURSE ---
Pt cleaned of loose diarrhea stool in her diaper and repositioned. Pt resting and given more pain meds and nausea meds for her complaints. Explained wait time for CT results, call atkins at side, VSS.
[2024-03-28 04:53] VITALS: BP 133/65; PULSE 90; RESP 16; TEMP 37; O2SAT 97
[2024-03-28 05:17] LABS: Reflex Lactic Acid Yes or No Add Lactic
[2024-03-28 05:57] LABS: Lactic Acid 2.1 mmol/L (0.4-2.0)
--- NOTE | 2024-03-28 06:44 | PC.NURSE ---
Pt resting and states she is feeling better, CT report is back and ERP Dr Bowles spoke w/ pt about admission or transfer to [facility]. Dr Bowles wanting to speak w/ Kyler or hospitalist for consult and possible transfer.
[2024-03-28 07:30] VITALS: BP 146/80; PULSE 92; RESP 20; TEMP 36.8; O2SAT 99
[2024-03-28 08:15] VITALS: BP 151/89; PULSE 89; RESP 16; TEMP 35.7; O2SAT 100
--- NOTE | 2024-03-28 08:18 | PC.NURSE ---
Patient admitted to room 207 from ED on stretcher. Patient required 2 assist to transfer from stretcher to bed. Nurse went over general hospital policies use of bed controls, and use of call light. Admission packet reviewed. Patient voiced understanding.
[2024-03-28] MEDS: ENOXAPARIN 40 MG/0.4 ML SYRINGE SUB-Q (09:25)
[2024-03-28] MEDS: PANTOPRAZOLE 40 MG TABLET PO (09:30)
[2024-03-28] MEDS: FIDAXOMICIN 200 MG TABLET PO (09:30)
[2024-03-28] MEDS: ASPIRIN 81 MG ENTERIC TABLET PO (09:30)
[2024-03-28] MEDS: HYDROcodone/acetaminophen (*CRX) 5-325 MG TABLET 1 TAB PO (09:30)
[2024-03-28] MEDS: CITALOPRAM HYDROBROMIDE 20 MG TABLET PO (09:31)
[2024-03-28] MEDS: SODIUM CHLORIDE 0.9% IV 1,000 ML 100 ML IV CONT ×2 (09:39→18:29)
[2024-03-28] MEDS: ACIDOPHILUS/BULGARICUS CHEWABLE TABLET 1 TABLET PO ×3 (12:34→21:45)
[2024-03-28 12:42] LABS: Toxigenic C. Diff POSITIVE (NEGATIVE)
[2024-03-28 14:00] VITALS: BMI 22.8
--- NOTE | 2024-03-28 14:39 | PM.IMHP ---
H&P: HPI History of Present Illness Date/Time: 03/28/24 14:39 Chief Complaint: N/V/D Narrative: Patient is a 43-year-old female who presented to the emergency department with complaints of nausea vomiting and diarrhea. Patient was recently discharged from [facility] 03/22/2024 after treatment for recurrent C diff. patient returns today with worsening abdominal pain as well as nausea, vomiting in reported diarrhea. 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 Initial findings in the emergency department did show leukocytosis and CT scan with worsening wall thickening of so rectosigmoid consistent with colitis as well as a moderate amount of large volume of stool in the colon. Patient reports she has not been able to have a normal bowel movements she feels constipated but with diarrhea. I did collect a stool sample on patient's admission which was still positive for C diff. patient was admitted to the medical unit for further treatment C diff colitis recurrent. Review of Systems Review of Systems: All systems reviewed & are unremarkable except as noted in HPI and below PMFSH Past Medical History Medical History Abnormality of rectum Aortic thrombus Clostridium difficile diarrhea Deep venous thrombosis Diabetic peripheral neuropathy Hyperlipidemia Intractable nausea and vomiting Ischemic colitis Neurogenic bladder Paraplegia Spinal cord stroke Type 1 diabetes mellitus Surgical History Surgical History History of aorto-femoral bypass [facility] History of partial amputation of toe 4th and 5th toe bilaterally Family History Family History Mother Acute myocardial infarction Diabetes mellitus Hypertension Father History of blood clots Social History Social History Social History: Surrogate medical decision maker: Ml Leonmeirusty, mother. Code status: Full code. Smoking packs per day: 0.5 Smoking cigarettes per day: 10.0 Years smoked: 25 Smoking pack-years: 12.50 Smoking status: Current every day smoker Tobacco type: cigarettes Second hand tobacco smoke exposure: Yes Alcohol intake: never Substance use: current Substance use type: marijuana Other substance usage details: daily Do You Feel Safe in your Home?: Yes Lack of Transportation: No Lack of Food: Never True Current Housing: I Have Housing Concerned About Future Housing: No Difficulty Paying Gas/Electric Bills: No Difficulty Paying for Meds: No Currently Unemployed: No Education: Associate Degree Difficulty w/ Childcare or Family Care: No Additional living arrangements comments: Lives with spouse and children in [place]. Spiritual care concerns: No Meds Home Medications and Allergies Home Medications Medication Instructions Recorded Confirmed Type atorvastatin 20 mg tablet 20 mg PO HS 11/10/23 03/28/24 History trazodone 100 mg tablet 100 mg PO HS 11/10/23 03/28/24 History melatonin 10 mg tablet 10 mg PO HS 01/12/24 03/28/24 History aspirin 81 mg tablet 81 mg PO DAILY 02/10/24 03/28/24 History polyethylene glycol 3350 17 gram 17 g PO QAM #30 ea 03/15/24 03/28/24 Rx oral powder packet (Miralax) citalopram 20 mg tablet (Celexa) 20 mg PO QAM 03/23/24 03/28/24 History fidaxomicin 200 mg tablet (Dificid) 200 mg PO Q12HR #15 tabs 03/25/24 03/28/24 Rx nortriptyline 10 mg capsule 10 mg PO HS #30 caps 03/25/24 03/28/24 Rx Allergies Allergy/AdvReac Type Severity Reaction Status Date / Time azithromycin Allergy Unknown Hives Verified 03/22/24 23:34 amoxicillin AdvReac Unknown Verified 03/22/24 23:34 Vital Signs
[2024-03-28] MEDS: VANCOMYCIN HCL 125 MG ORAL CAPSULE PO (17:54)
[2024-03-28] MEDS: LACTULOSE ENEMA 200 GM/1,000 ML ENEMA RECTAL (21:00)
[2024-03-28] MEDS: traZODone HCL 50 MG TABLET 100 MG PO (21:44)
[2024-03-28] MEDS: ATORVASTATIN 10 MG TABLET 20 MG PO (21:45)
[2024-03-28] MEDS: NORTRIPTYLINE HCL 10 MG CAPSULE PO (21:45)
[2024-03-28] MEDS: MELATONIN 5 MG TABLET 10 MG PO (21:45)
[2024-03-28 22:00] VITALS: BP 146/82; PULSE 91; RESP 16; TEMP 36.8; O2SAT 100
[2024-03-29] VITALS: BP 146/82; PULSE 91; RESP 16; TEMP 36.8; O2SAT 100
[2024-03-29] MEDS: VANCOMYCIN HCL 125 MG ORAL CAPSULE PO ×4 (00:53→16:58)
[2024-03-29] MEDS: HYDROmorphone HCL INJ (*CRX) 2 MG/ML VIAL 1 MG IV PUSH ×6 (04:08→21:10)
[2024-03-29] MEDS: SODIUM CHLORIDE 0.9% IV 1,000 ML 100 ML IV CONT ×2 (04:42→14:44)
[2024-03-29 05:53] LABS: Basophils Absolute Auto 0.05 K/mm3 (0.00-0.10); Basophils Percent Auto 0.7 % (0.0-1.0); Eosinophils Absolute Auto 0.17 K/mm3 (0.02-0.50); Eosinophils Percent Auto 2.4 % (1.0-6.0); Hematocrit 31.1 % (35.0-49.0); Immature Granulocyte Absolute 0.04 K/mm3 (0.00-0.00); Immature Granulocyte Percent A 0.6 % (0.0-0.0); Lymphocytes Absolute Auto 1.82 K/mm3 (1.10-4.50); Lymphocytes Percent Auto 25.5 % (18.0-42.0); Mean Corpuscular HGB Conc 32.2 g/dL (32-36); Mean Corpuscular Hemoglobin 29.4 pg (27.0-31.0); Mean Corpuscular Volume 91.5 fL (78.0-102.0); Mean Platelet Volume 9.9 fl (9.2-11.8); Monocytes Absolute Auto 0.45 K/mm3 (0.10-0.90); Monocytes Percent Auto 6.3 % (2.0-11.0); Neutrophils Absolute Auto 4.61 K/mm3 (1.70-7.20); Neutrophils Percent Auto 64.5 % (50.0-70.0); Platelet Count Result 221 K/mm3 (150-420); Red Cell Distribution Width 12.3 % (11.6-14.4); White Blood Count 7.1 K/mm3 (4.8-10.8)
[2024-03-29 06:20] LABS: Alanine Aminotransferase 21 U/L (14-59); Albumin Level 2.6 g/dL (3.4-5.0); Alkaline Phosphatase 95 U/L (46-116); Anion Gap 7 mmol/L (4-12); Aspartate Amino Transferase 13 U/L (15-37); Bilirubin,Total 0.2 mg/dL (0.00-1.00); Blood Urea Nitrogen 14 mg/dL (7-18); Calcium 8.7 mg/dL (8.5-10.1); Carbon Dioxide 27 mmol/L (21-32); Chloride 105 mmol/L (98-108); Estimated CRCL calculation 107 ml/min; Estimated Glomerular Filt Rate > 60; Glucose 146 mg/dL (70-99); Osmolality Calculated 291 mOsm/kg (285-295); Potassium 3.8 mmol/L (3.5-5.1); Sodium 139 mmol/L (136-145); Total Protein 5.8 g/dL (6.4-8.2)
[2024-03-29 08:00] VITALS: BP 134/70; PULSE 79; RESP 16; TEMP 36.2; O2SAT 99
[2024-03-29] MEDS: ENOXAPARIN 40 MG/0.4 ML SYRINGE SUB-Q (08:58)
[2024-03-29] MEDS: CITALOPRAM HYDROBROMIDE 20 MG TABLET PO (08:59)
[2024-03-29] MEDS: ACIDOPHILUS/BULGARICUS CHEWABLE TABLET 1 TABLET PO ×4 (08:59→21:10)
[2024-03-29] MEDS: PANTOPRAZOLE 40 MG TABLET PO (09:00)
[2024-03-29] MEDS: ASPIRIN 81 MG ENTERIC TABLET PO (09:00)
--- NOTE | 2024-03-29 13:37 | P.PNIM_ITS ---
Progress Note: A&P Assessment and Plan (1) C. difficile colitis: Code(s): A04.72 - Enterocolitis due to Clostridium difficile, not specified as recurrent Status: Acute Assessment and Plan: * Recurrent x3 * N/V/D * CT abdomen showing wall thickening with colitis * Still C diff positive * Will transition patient to vancomycin for 6 weeks p.o. * Pain control * Leukocytosis * CBC daily * Monitor and replenish electrolytes especially potassium and magnesium * If no improvement patient will need consult to GI transfer to [place] 03/29/24: * Normal WBCs * had transitioned to vancomycin need for 6 week course (2) Pressure ulcer of sacral region: Qualifiers: Pressure injury stage: unspecified pressure injury stage Qualified Code(s): L89.159 - Pressure ulcer of sacral region, unspecified stage Code(s): L89.159 - Pressure ulcer of sacral region, unspecified stage Status: Chronic Assessment and Plan: * Chronic osteomyelitis * Stable * Encourage Q2hr turns and offloading (3) Constipation: Code(s): K59.00 - Constipation, unspecified Status: Inactive Assessment and Plan: * CT abdomen showing stool burden in colon * Will start on enemas * May need the compaction above and resolved with enemas 03/29/24: * large BM overnight after enema * diarrhea x3 Plan Code status: Full code per patient DVT prophylaxis: Lovenox Stress ulcer prophylaxis: Protonix 40 daily PT/OT notes: NA at this time Disposition: Patient was admitted to the medical unit for recurrent C diff with colitis will transition patient to vancomycin p.o. x6 weeks and discontinue D ificid will need to attempted to the compact stool burden in colon. patient with large BM overnight after enema WBC improved will monitor for 1 more night but can likely discharge home on oral vancomycin for 6 weeks tomorrow Time Spent With Patient Time with patient: 15 - 25 minutes Subjective Date/time seen: 03/29/24 13:37 Interval history: patient is a 43-year-old female who was admitted for evaluation treatment of recurrent C diff colitis with colon stool burden 03/29/2024: patient states abdominal pain improved overnight after having large bowel movement still episodes of diarrhea denied any fever chills. Patient doing well straight cathing self with good urinary output. Review of Systems Review of Systems: All systems reviewed & are unremarkable except as noted in HPI and below Exam Narrative: Physical Exam: * GENERAL: Alert and oriented x 3. No acute distress. * HEENT: Moist mucous membranes. * LUNGS: Clear to auscultation bilaterally. No accessory muscle use. * CARDIOVASCULAR: Regular rate and rhythm. No murmur. No JVD. S1-S2 * ABDOMEN: Soft, tenderness and mild distended. Normal active bowels all 4 quadrants * EXTREMITIES: No edema. Non-tender * SKIN: No rashes or lesions. Skin warm, dry. Sacral decubitus small dime size opening * NEUROLOGIC: No focal neurological deficits. * PSYCHIATRIC: Appropriate mood and affect. Objective Data Vital Signs Vital Signs:
--- NOTE | 2024-03-29 13:37 | PM.IMPN ---
Progress Note: A&P Assessment and Plan (1) C. difficile colitis: Code(s): A04.72 - Enterocolitis due to Clostridium difficile, not specified as recurrent Status: Acute Assessment and Plan: Recurrent x3 N/V/D CT abdomen showing wall thickening with colitis Still C diff positive Will transition patient to vancomycin for 6 weeks p.o. Pain control Leukocytosis CBC daily Monitor and replenish electrolytes especially potassium and magnesium If no improvement patient will need consult to GI transfer to [place] 03/29/24: Normal WBCs had transitioned to vancomycin need for 6 week course (2) Pressure ulcer of sacral region: Qualifiers: Pressure injury stage: unspecified pressure injury stage Qualified Code(s): L89.159 - Pressure ulcer of sacral region, unspecified stage Code(s): L89.159 - Pressure ulcer of sacral region, unspecified stage Status: Chronic Assessment and Plan: Chronic osteomyelitis Stable Encourage Q2hr turns and offloading (3) Constipation: Code(s): K59.00 - Constipation, unspecified Status: Inactive Assessment and Plan: CT abdomen showing stool burden in colon Will start on enemas May need the compaction above and resolved with enemas 03/29/24: large BM overnight after enema diarrhea x3 Plan Code status: Full code per patient DVT prophylaxis: Lovenox Stress ulcer prophylaxis: Protonix 40 daily PT/OT notes: NA at this time Disposition: Patient was admitted to the medical unit for recurrent C diff with colitis will transition patient to vancomycin p.o. x6 weeks and discontinue Dificid will need to attempted to the compact stool burden in colon. patient with large BM overnight after enema WBC improved will monitor for 1 more night but can likely discharge home on oral vancomycin for 6 weeks tomorrow Time Spent With Patient Time with patient: 15 - 25 minutes Subjective Date/time seen: 03/29/24 13:37 Interval history: patient is a 43-year-old female who was admitted for evaluation treatment of recurrent C diff colitis with colon stool burden 03/29/2024: patient states abdominal pain improved overnight after having large bowel movement still episodes of diarrhea denied any fever chills. Patient doing well straight cathing self with good urinary output. Review of Systems Review of Systems: All systems reviewed & are unremarkable except as noted in HPI and below Exam Narrative: Physical Exam: GENERAL: Alert and oriented x 3. No acute distress. HEENT: Moist mucous membranes. LUNGS: Clear to auscultation bilaterally. No accessory muscle use. CARDIOVASCULAR: Regular rate and rhythm. No murmur. No JVD. S1-S2 ABDOMEN: Soft, tenderness and mild distended. Normal active bowels all 4 quadrants EXTREMITIES: No edema. Non-tender SKIN: No rashes or lesions. Skin warm, dry. Sacral decubitus small dime size opening NEUROLOGIC: No focal neurological deficits. PSYCHIATRIC: Appropriate mood and affect. Objective Data Vital Signs Vital Signs: Vital Signs - 24 hr 03/28/24 22:00 03/29/24 00:00 03/29/24 08:00 Temperature 98.2 F 98.2 F 97.1 F L Pulse Rate 91 91 79 Respiratory Rate 16 16 16 Blood Pressure 146/82 H 146/82 H 134/70 Pulse Oximetry 100 100 99 Oxygen Delivery Room Air Room Air Room Air Intake/Output Intake/Output: Intake & Output 03/26/24 03/27/24 03/28/24 03/29/24 23:59 23:59 23:59 23:59 Intake Total 3900 2140 Output Total 875 1675 Balance 3025 465 Meds/Results Medications: Active Medications Generic Name Dose Route Start Last Admin Trade Name Freq PRN Reason Stop Dose Admin Acetaminophen 650 mg 03/28/24 08:19 Acetaminophen 325 Mg Tablet PO Q4H PRN Mild Pain (1-3) or Fever Hydrocodone Bitart/Acetaminophen 1 tab 03/28/24 08:19 03/28/24 09:30 Hydrocodone/Acetaminophen (*Crx) 5-3
[2024-03-29 16:00] VITALS: BP 143/71; PULSE 86; RESP 16; TEMP 36.3; O2SAT 99
[2024-03-29] MEDS: traZODone HCL 50 MG TABLET 100 MG PO (21:09)
[2024-03-29] MEDS: ATORVASTATIN 10 MG TABLET 20 MG PO (21:09)
[2024-03-29] MEDS: NORTRIPTYLINE HCL 10 MG CAPSULE PO (21:09)
[2024-03-29] MEDS: MELATONIN 5 MG TABLET 10 MG PO (21:09)
[2024-03-30] VITALS: BP 106/55; PULSE 77; RESP 16; TEMP 36.8; O2SAT 97
[2024-03-30] MEDS: VANCOMYCIN HCL 125 MG ORAL CAPSULE PO ×3 (00:28→11:00)
[2024-03-30] MEDS: SODIUM CHLORIDE 0.9% IV 1,000 ML 100 ML IV CONT (00:29)
[2024-03-30] MEDS: HYDROmorphone HCL INJ (*CRX) 2 MG/ML VIAL 1 MG IV PUSH ×4 (00:41→12:36)
[2024-03-30 06:31] LABS: Basophils Absolute Auto 0.03 K/mm3 (0.00-0.10); Basophils Percent Auto 0.6 % (0.0-1.0); Eosinophils Absolute Auto 0.15 K/mm3 (0.02-0.50); Eosinophils Percent Auto 3.2 % (1.0-6.0); Hematocrit 28.7 % (35.0-49.0); Hemoglobin 9.2 g/dL (12.0-15.0); Immature Granulocyte Absolute 0.03 K/mm3 (0.00-0.00); Immature Granulocyte Percent A 0.6 % (0.0-0.0); Lymphocytes Absolute Auto 1.63 K/mm3 (1.10-4.50); Lymphocytes Percent Auto 34.4 % (18.0-42.0); Mean Corpuscular HGB Conc 32.1 g/dL (32-36); Mean Corpuscular Hemoglobin 29.8 pg (27.0-31.0); Mean Corpuscular Volume 92.9 fL (78.0-102.0); Mean Platelet Volume 9.7 fl (9.2-11.8); Monocytes Absolute Auto 0.29 K/mm3 (0.10-0.90); Monocytes Percent Auto 6.1 % (2.0-11.0); Neutrophils Absolute Auto 2.61 K/mm3 (1.70-7.20); Neutrophils Percent Auto 55.1 % (50.0-70.0); Platelet Count Result 190 K/mm3 (150-420); Red Blood Count 3.09 M/mm3 (4.20-5.40); Red Cell Distribution Width 12.3 % (11.6-14.4); White Blood Count 4.7 K/mm3 (4.8-10.8)
[2024-03-30 06:45] LABS: Alanine Aminotransferase 26 U/L (14-59); Albumin Level 2.5 g/dL (3.4-5.0); Alkaline Phosphatase 81 U/L (46-116); Anion Gap 7 mmol/L (4-12); Aspartate Amino Transferase 17 U/L (15-37); Bilirubin,Total 0.2 mg/dL (0.00-1.00); Blood Urea Nitrogen 10 mg/dL (7-18); Calcium 8.4 mg/dL (8.5-10.1); Carbon Dioxide 26 mmol/L (21-32); Chloride 106 mmol/L (98-108); Estimated CRCL calculation 109 ml/min; Estimated Glomerular Filt Rate > 60; Glucose 162 mg/dL (70-99); Osmolality Calculated 291 mOsm/kg (285-295); Sodium 139 mmol/L (136-145); Total Protein 5.5 g/dL (6.4-8.2)
[2024-03-30 08:00] VITALS: BP 132/72; PULSE 74; RESP 18; TEMP 36.4; O2SAT 98
[2024-03-30] MEDS: ASPIRIN 81 MG ENTERIC TABLET PO (09:53)
[2024-03-30] MEDS: ENOXAPARIN 40 MG/0.4 ML SYRINGE SUB-Q (09:53)
[2024-03-30] MEDS: CITALOPRAM HYDROBROMIDE 20 MG TABLET PO (09:54)
[2024-03-30] MEDS: PANTOPRAZOLE 40 MG TABLET PO (09:54)
[2024-03-30] MEDS: ACIDOPHILUS/BULGARICUS CHEWABLE TABLET 1 TABLET PO ×2 (09:54→12:36)
--- NOTE | 2024-03-30 10:23 | PM.DS ---
DS: Admitting Diagnosis Discharge Date 03/30/2024 Admitting Diagnosis C diff colitis DS: Discharge Diagnosis Discharge Diagnosis (1) C. difficile colitis: Code(s): A04.72 - Enterocolitis due to Clostridium difficile, not specified as recurrent Status: Acute (2) Pressure ulcer of sacral region: Qualifiers: Pressure injury stage: unspecified pressure injury stage Qualified Code(s): L89.159 - Pressure ulcer of sacral region, unspecified stage Code(s): L89.159 - Pressure ulcer of sacral region, unspecified stage Status: Chronic (3) Constipation: Code(s): K59.00 - Constipation, unspecified Status: Inactive Plan disposition: discharged home with home health DS: Summary Hospital Course Reason for hospitalization: C diff colitis Hospital Course: patient was a 43-year-old female who presented to the emergency department with worsening abdominal pain patient had recently been discharged from [facility] due to C diff infection patient has continued to have recurrent C diff infections likely due to recent antibiotic therapy for UTIs was recently treated for ESBL 02/21/2024 7 days meropenem. patient has known neurogenic bladder and previously had chronic urinary catheter however has been seen by Urology and has now been straight cathing self. patient was to have an elevated white count and CT abdomen showing colitis with stool burden at colon. Patient on both previous C diff infections was being treated with Dificid times 10 days. Patient was admitted to the medical unit for further treatment of C diff infection. I switched patient to oral vancomycin which she will need for 6 weeks due to recurrent C diff she was also treated for her stool burden in her colon with Fleet enema and lactulose enema and patient a large BM and reported improvement to her abdominal pain. Patient has leukocytosis improved to normal she remained afebrile during admission and other labs unremarkable. Patient reported on day of discharge stools x2 and a 24 hour. Electrolytes and labs within normal limits. She was then discharged home with prescription oral vancomycin for 6 weeks I also encouraged enemas or suppositories as needed she finds herself with constipation. patient's urine did come back with gregg negative bacilli however patient had no urinary complaints and has recently been treated with meropenem x7 days for UTI at this point appears to be colonization and due to her recurrent C diff infections did not treat with antibiotic therapy some concerns exacerbation of C diff. patient was discharged home with family currently has home health scheduled and will resume. Status at Discharge Functional status at discharge: wheelchair bound Overall status at discharge: patient is progressing back to baseline Time Spent with Patient Time attestation: Total time spent providing and/or coordinating discharge services: Time spent: Greater than 30 minutes Exam Narrative: Physical Exam: GENERAL: Alert and oriented x 3. No acute distress. HEENT: Moist mucous membranes. LUNGS: Clear to auscultation bilaterally. No accessory muscle use. CARDIOVASCULAR: Regular rate and rhythm. No murmur. No JVD. S1-S2 ABDOMEN: Soft, tenderness and mild distended. Normal active bowels all 4 quadrants EXTREMITIES: No edema. Non-tender SKIN: No rashes or lesions. Skin warm, dry. Sacral decubitus small dime size opening NEUROLOGIC: No focal neurological deficits. PSYCHIATRIC: Appropriate mood and affect. DS: Data Data Completed and Pending Labs on day of discharge: Labs from last 24 hours 03/30/24 06:21 WBC 4.7 L RBC 3.09 L Hgb 9.2 L Hct 28.7 L MCV 92.9 MCH 29.8 MCHC 32.1 RDW 12.3 Plt Count 190 MPV 9.7 Immature Gran % (Auto) 0.6 H Neut % (Auto) 55.1 Lymph % (Auto) 34.4 Rice % (Auto) 6.1 Eos % (Auto) 3.2 Baso % (Auto) 0.6 Lymph # (Auto) 1.63 Rice # (Aut
[2024-03-30] MEDS: HYDROcodone/acetaminophen (*CRX) 5-325 MG TABLET 1 TAB PO (10:57)
--- NOTE | 2024-03-30 13:40 | PC.NURSE ---
Discharge instructions reviewed with patient, reinforced instructions to follow up with pain management and finish current antibiotic course. Verbalized understanding, patient taken off floor per wheelchair by family
--- NOTE | 2024-03-31 12:57 | PC.NURSE ---
Patient having pain, to get in to see pain clinic physician, no questions regarding dc instructions
== END 2024-03-30 13:40 | disposition home health service (06) ==
LOC: CHSED 07:53 → CHS2ND 08:03
PROVIDERS: Emergency Medicine; Admitting Provider Internal Medicine; Emergency Provider Preventive Medicine Aerospace Medicine; PCP Family Medicine; Visit Provider Nurse Practitioner Family
DX: A04.72 Enterocolitis due to Clostridium difficile, not specified as recurrent (principal); L89.159 Pressure ulcer of sacral region, unspecified stage; M86.60 Other chronic osteomyelitis, unspecified site; K59.00 Constipation, unspecified; E10.42 Type 1 diabetes mellitus with diabetic polyneuropathy; G82.20 Paraplegia, unspecified; N31.9 Neuromuscular dysfunction of bladder, unspecified; E78.5 Hyperlipidemia, unspecified; F17.200 Nicotine dependence, unspecified, uncomplicated; Z79.82 Long term (current) use of aspirin; Z79.899 Other long term (current) drug therapy; Z88.1 Allergy status to other antibiotic agents; Z88.0 Allergy status to penicillin
CPT/HCPCS: 36415; 74177; 80053; 81001; 83605; 85025; 85027; 87040; 87077; 87086; 87088; 87186; 87493; 96361; 96365; 96372; 96374; 96375; 96376; 99285; A9270; G0378; J1171; J1650; J1956; J2405; J2765; J3010; J7030; Q9967

== ENCOUNTER 2024-04-01 08:23 | Emergency (ER) | payer OTHER, MEDICAID, SELFPAY ==
[2024-04-01 08:27] VITALS: BP 193/93; PULSE 85; RESP 24; TEMP 36.2; O2SAT 100
--- NOTE | 2024-04-01 08:27 | ED.NAVMDI ---
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 She was treated for ESBL urinary tract infection with meropenem in February. she had a CT which revealed inflammation/ thickening of the rectosigmoid with perirectal stranding. She presents to the ED with -- nausea and multiple episodes of vomiting -- abdominal pain no fever or chills. Patient is on p.o. vancomycin. patient has a history of PUD / GERD and is on Protonix. MD elicited complaint: nausea and vomiting Pertinent past history: anorexia Onset (ago): day(s) ( Two days) Description of vomiting: food contents Associated nausea: Yes Associated abdominal pain: Yes Location of pain: epigastric Pain consistency: intermittent Quality: cramping Exacerbating factors: none Relieving factors: none Context: recent antibiotic use Treatment prior to arrival: other ( p.o. vancomycin) Related Data Home Medications Medication Instructions Recorded Confirmed atorvastatin 20 mg tablet 20 mg PO HS 11/10/23 04/01/24 trazodone 100 mg tablet 100 mg PO HS 11/10/23 04/01/24 melatonin 10 mg tablet 10 mg PO HS 01/12/24 04/01/24 aspirin 81 mg tablet 81 mg PO DAILY 02/10/24 04/01/24 citalopram 20 mg tablet (Celexa) 20 mg PO QAM 03/23/24 04/01/24 Allergies Allergy/AdvReac Type Severity Reaction Status Date / Time azithromycin Allergy Unknown Hives Verified 04/01/24 08:28 amoxicillin AdvReac Unknown Verified 04/01/24 08:28 Review of Systems Review of Systems: All systems reviewed & are unremarkable except as noted in HPI and below Constitutional: Constitutional: Reports as per HPI, Reports no additional constitutional complaints and Reports weakness Eyes: Eyes: Reports as per HPI and Reports no additional eye complaints ENT: Reports system reviewed and no additional complaints, except as documented and Reports as per HPI Cardiovascular: Cardiovascular: Reports as per HPI and Reports no additional cardiovascular complaints Respiratory: Respiratory: Reports as per HPI and Reports no additional respiratory complaints Gastrointestinal: Gastrointestinal: Reports as per HPI, Reports no additional gastrointestinal complaints, Reports abdominal pain, Reports nausea and Reports vomiting Genitourinary: Genitourinary: Reports no additional female genitourinary complaints Comments: Patient self catheterizes herself Musculoskeletal: Musculoskeletal: Reports no additional musculoskeletal complaints Integumentary/Breasts: Comments: sacral decubitus Neurologic: Comments: paraplegia Psychiatric: Psychiatric: Reports no additional psychiatric complaints, Reports as per HPI and Reports anxiety Endocrine: Endocrine: Reports no additional endocrine complaints and Reports as per HPI Hematologic/Lymphatic: Hematologic/Lymphatic: Reports no additional hematologic/lymphatic complaints and Reports as per HPI Allergic/Immunologic: Allergic/Immunologic: Reports no additional allergic/immunologic complaints and Reports as per HPI [facility] Past Medical History Medical History Abnormality of rectum Aortic thrombus Clostridium difficile diarrhea Deep venous thrombosis Diabetic peripheral neuropathy Hyperlipidemia Intractable nausea and vomiting Ischemic colitis Neurogenic bladder Paraplegia Spinal cord stroke Type 1 diabetes mellitus Surgical History Surgical History History of aorto-femoral bypass [facility] History of partia
[2024-04-01 09:01] LABS: Basophils Absolute Auto 0.02 K/mm3 (0.00-0.10); Basophils Percent Auto 0.2 % (0.0-1.0); Eosinophils Percent Auto 1.1 % (1.0-6.0); Hematocrit 35.3 % (35.0-49.0); Immature Granulocyte Absolute 0.06 K/mm3 (0.00-0.00); Immature Granulocyte Percent A 0.7 % (0.0-0.0); Lymphocytes Absolute Auto 1.84 K/mm3 (1.10-4.50); Mean Corpuscular Hemoglobin 30.1 pg (27.0-31.0); Mean Corpuscular Volume 88.5 fL (78.0-102.0); Mean Platelet Volume 9.7 fl (9.2-11.8); Monocytes Absolute Auto 0.31 K/mm3 (0.10-0.90); Monocytes Percent Auto 3.5 % (2.0-11.0); Neutrophils Absolute Auto 6.43 K/mm3 (1.70-7.20); Neutrophils Percent Auto 73.5 % (50.0-70.0); Platelet Count Result 269 K/mm3 (150-420); Red Blood Count 3.99 M/mm3 (4.20-5.40); White Blood Count 8.8 K/mm3 (4.8-10.8)
[2024-04-01] MEDS: LACTATED RINGERS 1,000 ML 999 ML IV CONT (09:03)
[2024-04-01] MEDS: PROCHLORPERAZINE EDISYLATE 10 MG/2 ML VIAL IV PUSH (09:03)
[2024-04-01] MEDS: MORPHINE SULFATE (*CRX) 2 MG/ML INJ IV PUSH (09:14)
--- NOTE | 2024-04-01 09:15 | PC.NURSE ---
PT WAS INCONTINENT OF STOOL, PERICARE PROVIDED WITH DRY LINENS REPLACED. STOOL WAS NOT FORMED, HOWEVER WAS SEMI-SOLID, NO LIQUID OR SEEDINESS NOTED. ERP DECLINED TESTING. PT CONTINUES TO YELL AND SCREAM THAT SHE IS NAUSEOUS MY BELLY AND THAT SHE IS IN PAIN. HELP ME, SOMETHING IS WRONG. WHY DID THEY SEND ME HOME THE OTHER DAY? ADVISED PT SHE WILL BE GETTING PAIN MEDICATION, SHE IS CURRENTLY LYING ON RT SIDE, CONTINUES TO ROLL TO RT SIDE, PILLOW IS PLACED BETWEEN LEGS, PT IS REPOSITIONED. PT HAS DRESSING NOTED TO CO[place] REGION. PT'S IV SITE IN RT AC APPEARS TO BE INFILTRATED, IT WILL NOT INFUSE, NO SWELLING OR PAIN NOTED. PT CONTINUES TO LAY ON RT ARM. IV SITE DC, DRESSING APPLIED AND NEW IV SITE ESTABLISHED, IVF INFUSING WITHOUT DIFFICULTY. WILL CONTINUE TO MONITOR.
[2024-04-01 09:16] LABS: Alanine Aminotransferase 20 U/L (14-59); Albumin Level 3.5 g/dL (3.4-5.0); Alkaline Phosphatase 107 U/L (46-116); Anion Gap 12 mmol/L (4-12); Aspartate Amino Transferase 11 U/L (15-37); Bilirubin,Total 0.3 mg/dL (0.00-1.00); Blood Urea Nitrogen 10 mg/dL (7-18); Calcium 9.8 mg/dL (8.5-10.1); Carbon Dioxide 23 mmol/L (21-32); Chloride 102 mmol/L (98-108); Estimated CRCL calculation 89 ml/min; Estimated Glomerular Filt Rate > 60; Glucose 194 mg/dL (70-99); Lipase 27 U/L (16-77); Osmolality Calculated 288 mOsm/kg (285-295); Potassium 3.7 mmol/L (3.5-5.1); Sodium 137 mmol/L (136-145); Total Protein 7.3 g/dL (6.4-8.2)
--- NOTE | 2024-04-01 09:22 | PC.NURSE ---
pt. had large bowel movement. cleaned up & repositioned by Tech & nurse
[2024-04-01 10:04] LABS: Hemoglobin A1C 6.4 % (<5.7)
--- NOTE | 2024-04-01 10:13 | PC.NURSE ---
PT CONTINUES TO REPORT NAUSEA, ERP IS AWARE. WILL CONTINUE TO MONITOR.
[2024-04-01] MEDS: ONDANSETRON INJ 4 MG/2 ML VIAL IV PUSH (10:42)
--- NOTE | 2024-04-01 10:44 | PC.NURSE ---
PT REPORTS PAIN AND NAUSEA HAVE IMPROVED POST STRAIGHT CATH. PT IS AWARE OF PLAN OF CARE, HAS STOPPED SCREAMING IN PAIN, IS MORE CALM. WILL CONTINUE TO MONITOR. PT IS CALLING FAMILY FOR TRANSPORT.
[2024-04-01 11:07] VITALS: BP 164/74; PULSE 77; RESP 18; TEMP 36.6; O2SAT 100
--- NOTE | 2024-04-01 11:27 | PC.NURSE ---
PT HAS BEEN INCONTINENT OF STOOL AGAIN, PERICARE WAS PROVIDED. EMS NOTIFIED FOR TRANSPORT HOME. DRESSING TO [place] AREA CHANGED, DRY.
--- NOTE | 2024-04-01 11:34 | PC.NURSE ---
EMS DECLINES TRANSPORT HOME DUE TO PT BEING ABLE TO SIT IN A CAR.
[2024-04-01 12:00] VITALS: PULSE 82; RESP 18; TEMP 36.4; O2SAT 98
== END 2024-04-01 12:00 | disposition home or self-care (01) ==
PROVIDERS: Emergency Provider Internal Medicine Critical Care Medicine; PCP Family Medicine
DX: E10.65 Type 1 diabetes mellitus with hyperglycemia (principal); K29.00 Acute gastritis without bleeding; E78.5 Hyperlipidemia, unspecified; Z79.899 Other long term (current) drug therapy; Z79.82 Long term (current) use of aspirin; Z86.718 Personal history of other venous thrombosis and embolism; F17.210 Nicotine dependence, cigarettes, uncomplicated
CPT/HCPCS: 36415; 80053; 83036; 83605; 83690; 85025; 96361; 96374; 96375; 99284; J0780; J2270; J2405; J7120

== ENCOUNTER 2024-04-08 10:17 | Outpatient (RCR) | payer OTHER, MEDICAID, SELFPAY ==
--- NOTE | 2024-04-08 13:07 | PTOPEVAL1 ---
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 reports she went in for an aortic bypass and was clipped at the aorta. She reports that she was clipped too long and states that caused occlusion below T10 level. She states that doctors are unsure if see will get muscle return. She reports that she still has bowel and bladder control. She has had home health therapy and was told she has trace movement in the l.e. She states that she has a sit to stand machine at home . She has her son and at home. She states that they assist with dressing, transfers and bathing. She is using a sliding board at home. She states that prior to her incident she was independent with all IADL's. She reports that her goal for therapy is to be able to stand and walk. Reported Pain Level Pain Score 0: Self Report Pain Score 0: Self Report Assessment PT Clinical Summary Pt. is a 43 year old female who enters the clinic follow an infarction to the spinal cord. She presents with trace contraction of gluts and hip flexors, as well as hamstrings, however has no contraction of other l.e. muscle groups. She is currently at 9-10 months post initial injury. She currently presents with difficulty maintaining sitting, difficulty with transfers, l.e. weakness resulting in overall functional decline. continued skilled PT is indicated in order to improve these areas to allow the pt. to be able to more safely and efficiency participate in transfers and ADL's with assist from family. Plan of Care Interventions Manual Therapy,Neuro Re-education,Patient/ Caregiver Educati,Therapeutic Activities, Therapeutic Exercise PT Services Indicated Yes Treatment Frequency and 2x/week x 10 visits Duration These treatments will address the objective and functional deficits as defined above. The patient will be advanced safely and appropriately in order for the patient to progress towards his/her prior level of function. Additional exercises will be introduced and as well as a comprehensive home exercise program upon discharge, if needed, ?to ensure carryover of functional gains achieved in the clinic. This treatment plan has been reviewed and agreement upon by the patient.
--- NOTE | 2024-04-08 13:08 | OPREHPOC ---
Outpatient Therapy Plan of Care This is a Multidisciplinary Plan of Care that may contain components documented by all disciplines (PT, OT, and ST.) PT Problem 1 PT Problem #1 Knowledge Deficit PT Goal 1 Goal / Goal Update Pt. will be independent with a HEP focusing on l.e . strength and sitting endurance Target Visit 2 PT Problem 2 PT Problem #2 Impaired Strength PT Goal 1 Goal / Goal Update -Pt. will present with ability to complete a bridge indicating improved hip extensor strength -Pt. will demonstrate ability to complete gravity eliminated hip flexion in a full arch of motion in side lying Target Visit 10 PT Problem 3 PT Problem #3 Impaired Functional Mobil PT Goal 1 Goal / Goal Update Pt. will improve functional sitting test score by 5-10 points indicating improved participation in transfers. Pt. will be able to sit unsupported and reach for objects for 5 minute duration without u.e. support Pt. will be able to stand with cga in the walker for duration of 2-3 minutes. Target Visit 10
--- NOTE | 2024-04-13 14:55 | BUOTOPEVAL ---
Assessment and note entered by Deloris Sloan OT Evaluation Information Assessment Status Evaluation Diagnosis Spinal cord infarction Reported Pain Level Pain Score 8: Self Report Pain Score 0: Self Report Pain Score 0: Self Report Pain Score 0: Self Report Assessment OT Clinical Summary The patient is a 43 year old female who was referred to outpatient OT due to spinal cord infarction. The patient previously demonstrated independence with all ADLs and transfers, IADLs and work tasks. The patient demonstrated WNL strength and endurance needed to care for her family, perform work tasks and engage in daily leisure activities. The patient now demonstrates moderately impaired strength and endurance of B UE and core strength that affects her ability to perform daily tasks and maintain balance in standing. The patient is receiving PT at this time to address LE strength and balance, the patient demonstrates significant muscle weakness following spinal cord infarction that has resulted in the patient unable to walk or stand at this time, her main goal is to walk again. The patient requires skilled OT to address UE strengthening, endurance and trunk strength needed to improve strength to maintain balance and use a walker. The patient reports that she is able to perform all ADLs with mod I and wants to get back to fishing. The patient requires skilled OT to improve strength, endurance and core strength for IADLs. Plan of Care Interventions Therapeutic Exercise,Manual Therapy,Neuro Re- education,Therapeutic Activities,Hot Pack/Cold Pack,Electrical Stimulation,Sensory Integrative Techn,Self-Care/Home Management,Prosthetic Training OT Services Indicated Yes Treatment Frequency and 2-3x/week for 10 visits. Duration These treatments will address the objective and functional deficits as defined above. The patient will be advanced safely and appropriately in order for the patient to progress towards his/her prior level of function. Additional exercises will be introduced and as well as a comprehensive home exercise program upon discharge, if needed, ?to ensure carryover of functional gains achieved in the clinic. This treatment plan has been reviewed and agreement upon by the patient.
--- NOTE | 2024-04-13 14:55 | OPREHPOC ---
Outpatient Therapy Plan of Care This is a Multidisciplinary Plan of Care that may contain components documented by all disciplines (PT, OT, and ST.) PT Problem 1 PT Problem #1 Knowledge Deficit PT Goal 1 Goal / Goal Update Pt. will be independent with a HEP focusing on l.e . strength and sitting endurance Target Visit 2 PT Problem 2 PT Problem #2 Impaired Strength PT Goal 1 Goal / Goal Update -Pt. will present with ability to complete a bridge indicating improved hip extensor strength -Pt. will demonstrate ability to complete gravity eliminated hip flexion in a full arch of motion in side lying Target Visit 10 PT Problem 3 PT Problem #3 Impaired Functional Mobil PT Goal 1 Goal / Goal Update Pt. will improve functional sitting test score by 5-10 points indicating improved participation in transfers. Pt. will be able to sit unsupported and reach for objects for 5 minute duration without u.e. support Pt. will be able to stand with cga in the walker for duration of 2-3 minutes. Target Visit 10 OT Problem 1 OT Problem #1 Knowledge Deficit OT Goal 1 Goal / Goal Update The patient will demonstrate 100% knowledge and return demonstration of UE HEP needed to increase and maintain UB and core strength for ability to increase transfer safety. Target Visit 10 OT Problem 2 OT Problem #2 Impaired Strength OT Goal 1 Goal / Goal Update The patient will demonstrate B UE strength of 5/5 in order to increase strength for use of walker when practicing transfers. Target Visit 10 OT Goal 2 Goal / Goal Update The patient will demonstrate 4+/5 trunk strength when tested to improve transfer safety. Target Visit 10 OT Problem 3 OT Problem #3 Impaired Endurance OT Goal 1 Goal / Goal Update The patient will demonstrate increased endurance engaging in 10 minutes of UB exercises and activities without need for rest break and reporting <3 on RPE during activity. Target Visit 10
--- NOTE | 2024-05-04 14:04 | PCPTNOTE ---
Pt. cancelled her scheduled PT visit on this date.
--- NOTE | 2024-05-04 17:08 | PCOTNOTE ---
The patient arrived to OT this date willing to work with OT and to cancel PT appointment following. The patient had experienced a BM where she was uncomfortable and wanted to go home. Therapist offered to assist her in cleaning up but she denied. The patient expressed she was sick of dealing with getting a ride and needing help from others to do anything. She stated she did not want to be around anymore and in the past has expressed mental health concerns where she reported her MD is aware and she is on antidepressant medication. She was communicating with her about potentially leaving therapy and at first did not want to go with him. When he arrived, she voluntarily left with her when given the option to stay. The patient was cancelled this date for OT and PT appointments.
--- NOTE | 2024-05-22 17:46 | OPREHPOC ---
Outpatient Therapy Plan of Care This is a Multidisciplinary Plan of Care that may contain components documented by all disciplines (PT, OT, and ST.) PT Problem 1 PT Problem #1 Knowledge Deficit PT Goal 1 Goal / Goal Update Pt. will be independent with a HEP focusing on l.e . strength and sitting endurance. requires assistance from family. Target Visit 2 Progress Partially Met PT Problem 2 PT Problem #2 Impaired Strength PT Goal 1 Goal / Goal Update -Pt. will present with ability to complete a bridge indicating improved hip extensor strength -Pt. will demonstrate ability to complete gravity eliminated hip flexion in a full arch of motion in side lying Target Visit 10 Progress Not Met PT Problem 3 PT Problem #3 Impaired Functional Mobil PT Goal 1 Goal / Goal Update Pt. will improve functional sitting test score by 5-10 points indicating improved participation in transfers. Pt. will be able to sit unsupported and reach for objects for 5 minute duration without u.e. support . met Pt. will be able to stand with cga in the walker for duration of 2-3 minutes. not met Target Visit 10 Progress Partially Met OT Problem 1 OT Problem #1 Knowledge Deficit OT Goal 1 Goal / Goal Update The patient will demonstrate 100% knowledge and return demonstration of UE HEP needed to increase and maintain UB and core strength for ability to increase transfer safety. Target Visit 10 OT Problem 2 OT Problem #2 Impaired Strength OT Goal 1 Goal / Goal Update The patient will demonstrate B UE strength of 5/5 in order to increase strength for use of walker when practicing transfers. Target Visit 10 OT Goal 2 Goal / Goal Update The patient will demonstrate 4+/5 trunk strength when tested to improve transfer safety. Target Visit 10 OT Problem 3 OT Problem #3 Impaired Endurance OT Goal 1 Goal / Goal Update The patient will demonstrate increased endurance engaging in 10 minutes of UB exercises and activities without need for rest break and reporting <3 on RPE during activity. Target Visit 10
--- NOTE | 2024-05-22 17:46 | PTOPREEVAL ---
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 she reports she would still like to be able to walk and stand with just a walker. she was recently admitted to the hospital for 1 week for bowel issues. she reports she did not have any therapy while she was in the hospital. she reports she does feel weaker since getting out of the hospital. patient reports she does not have assistance at home through the day to work on any standing. Reported Pain Level Pain Score 0: Self Report Pain Score 6: Self Report Assessment PT Clinical Summary mrs. verma presents to skilled PT for her 10th skilled therapy visit. she continues to have deficits in strength in the bilateral LE's. she has had a bit of set back recently when she was admitted in the hospital for several days without therapy or getting out of bed. patient has met HEP goal with assistance from family, but has yet to meet any other goals or her personal goal of standing and walking with a walker. she is unable to get adequate time standing at home due to a lack of assistance/support. she would benefit from continued skilled PT to address her objective/ functional deficits, transfers, and core stability to achieve goals for skilled PT. Plan of Care Interventions Manual Therapy,Neuro Re-education,Patient/ Caregiver Educati,Therapeutic Activities, Therapeutic Exercise PT Services Indicated Yes Treatment Frequency and continue skilled PT 2x weekly for 10 more visits Duration These treatments will address the objective and functional deficits as defined above. The patient will be advanced safely and appropriately in order for the patient to progress towards his/her prior level of function. Additional exercises will be introduced and as well as a comprehensive home exercise program upon discharge, if needed, ?to ensure carryover of functional gains achieved in the clinic. This treatment plan has been reviewed and agreement upon by the patient.
--- NOTE | 2024-06-04 14:01 | PCPTNOTE ---
Patient called & cancelled scheduled appointment this date due to [unable to make it back in town in time]
--- NOTE | 2024-06-05 09:52 | BUOTOPEVAL ---
Assessment and note entered by Deloris Sloan, OT Evaluation Information Assessment Status Progress Diagnosis Spinal cord infarction Reported Pain Level Pain Score 0: Self Report Pain Score 0: Self Report Pain Score 0: Self Report Pain Score 0: Self Report Pain Score 0: Self Report Pain Score 6: Self Report Pain Score 0: Self Report Pain Score 0: Self Report Pain Score 0: Self Report Pain Score 7: Self Report Pain Score 0: Self Report Pain Score 0: Self Report Pain Score Mild Pain: Roman [place]ery Pain Score Moderate Pain: Roman [place]ery Pain Score 0: Self Report Pain Score Moderate Pain: Roman [place] Pain Score Moderate Pain: Roman [place]ery Pain Score Moderate Pain: Roman [place]ery Pain Score 0: Self Report Pain Score 0: Self Report Pain Score 8: Self Report Pain Score 0: Self Report Pain Score 0: Self Report Pain Score 0: Self Report Assessment OT Clinical Summary The patient demonstrates significant progress toward UB strength and endurance which have improved her ability to perform ADLs and washing dishes with decreased fatigue and improve techniques to maintain safety and improve independence. The patient demonstrates minimal progress toward core strength due to severity of condition. Due to the patient's decreased ability to engage in skilled treatment directly after injury from multiple hospitalization to maintain stability of medical condition, therapist to continue to address core strength to determine if patient's progress will plateau. The patient also demonstrates increased motivation and engagement in the use of adaptive techniques and equipment to maximize independence in daily tasks. Due to improved motivation, therapist to now educate and demonstrate to patient on how to use adaptive equipment to perform tasks such as donning socks with sock aid, use of tub/shower bench and address other areas of ADLs/IADLs of concern to adapt environment or technique in order to perform tasks with modified independence. The patient to continue skilled OT to maximize independence and improve endurance, UB strength and core strength. Plan of Care Interventions Therapeutic Exercise,Neuro Re-education, Therapeutic Activities,Sensory Integrative Techniques,Self-Care/Home Management OT Services Indicated Yes Treatment Frequency and 2x/week for 10 visits. Duration These treatments will address the objective and functional deficits as defined above. The patient will be advanced safely and appropriately in order for the patient to progress towards his/her prior level of function. Additional exercises will be introduced and as well as a comprehensive home exercise program upon discharge, if needed, ?to ensure carryover of functional gains achieved in the clinic. This treatment plan has been reviewed and agreement upon by the patient.
--- NOTE | 2024-06-05 09:52 | OPREHPOC ---
Outpatient Therapy Plan of Care This is a Multidisciplinary Plan of Care that may contain components documented by all disciplines (PT, OT, and ST.) PT Problem 1 PT Problem #1 Knowledge Deficit PT Goal 1 Goal / Goal Update Pt. will be independent with a HEP focusing on l.e . strength and sitting endurance. requires assistance from family. Target Visit 2 Progress Partially Met PT Problem 2 PT Problem #2 Impaired Strength PT Goal 1 Goal / Goal Update -Pt. will present with ability to complete a bridge indicating improved hip extensor strength -Pt. will demonstrate ability to complete gravity eliminated hip flexion in a full arch of motion in side lying Target Visit 10 Progress Not Met PT Problem 3 PT Problem #3 Impaired Functional Mobility PT Goal 1 Goal / Goal Update Pt. will improve functional sitting test score by 5-10 points indicating improved participation in transfers. Pt. will be able to sit unsupported and reach for objects for 5 minute duration without u.e. support . met Pt. will be able to stand with cga in the walker for duration of 2-3 minutes. not met Target Visit 10 Progress Partially Met OT Problem 1 OT Problem #1 Knowledge Deficit OT Goal 1 Goal / Goal Update The patient will demonstrate 100% knowledge and return demonstration of UE HEP needed to increase and maintain UB and core strength for ability to increase transfer safety. GOAL MET; DISCONTINUE Target Visit 10 OT Goal 2 Goal / Goal Update NEW GOAL 06/02: The patient will demonstrate 100% knowledge for AE needed for ADLs and transfers to maintain highest level of independence with shaving, donning clothes, performing shower transfers and showering tasks or other IADLs as needed. Target Visit 20 OT Problem 2 OT Problem #2 Impaired Strength OT Goal 1 Goal / Goal Update The patient will demonstrate B UE strength of 5/5 in order to increase strength for use of walker when practicing transfers. PROGRESS: B shoulders 4+/5 B elbows 4/5 GOAL PROGRESSING; CONTINUE Target Visit 20 OT Goal 2 Goal / Goal Update The patient will demonstrate 4+/5 trunk strength when tested to improve transfer safety. PROGRESS: Trunk strength 3-/5 GOAL PROGRESSING; CONTINUE assess for plateau Target Visit 20 OT Problem 3 OT Problem #3 Impaired Endurance OT Goal 1 Goal / Goal Update The patient will demonstrate increased endurance engaging in 15 minutes of UB exercises and activities without need for rest break and reporting 1 on RPE during activity. PROGRESS: RPE rated at 2, 10 minutes with two slight breaks GOAL PROGRESS; UPGRADED Target Visit 20
--- NOTE | 2024-06-08 15:27 | PCOTNOTE ---
The patient cancelled due to not having a good day today.
--- NOTE | 2024-06-24 15:27 | PCOTNOTE ---
The patient stated she fell out of her wheelchair today and does not want to fall again and will not be coming to therapy.
--- NOTE | 2024-07-02 17:09 | PTOPPROGNS ---
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 she feels most of the time she will never get better and never walk again. she reports she has 24/ care at home from family, but no sit to stand AD to help her work on standing. she has been away for a few weeks due to weather and illness. Assessment PT Clinical Summary mrs. verma presents to skilled PT for her 14th skilled PT visit today. she has been gone for a few weeks due to bad weather and illness. she continues to display deficits in LE strength and transfer ability. she is still unable to perform sit to stand transfer to a walker, and has not been safe to attempt walking yet which is a major goal of hers. continued skilled PT is indicated to continue to work on achievement of this and her other remaining goals listed below. Plan of Care Interventions Manual Therapy,Neuro Re-education,Patient/ Caregiver Education,Therapeutic Activities, Therapeutic Exercise PT Services Indicated Yes Treatment Frequency and continue skilled PT perlast POC 2x weekly for 6 Duration more visits These treatments will address the objective and functional deficits as defined above. The patient will be advanced safely and appropriately in order for the patient to progress towards his/her prior level of function. Additional exercises will be introduced and as well as a comprehensive home exercise program upon discharge, if needed, ?to ensure carryover of functional gains achieved in the clinic. This treatment plan has been reviewed and agreement upon by the patient.
== END 2024-07-07 23:59 | disposition home or self-care (01) ==
LOC: CHSOT 10:17
PROVIDERS: Visit Provider Physician Assistant
DX: G95.11 Acute infarction of spinal cord (embolic) (nonembolic) (principal)
CPT/HCPCS: 97110; 97112; 97162; 97166; 97530; 97535

== ENCOUNTER 2024-05-16 21:29 | Emergency (ER) | payer OTHER, MEDICAID, SELFPAY ==
--- NOTE | ~2024-05-16 | CT_ITS ---
EXAMINATION: CT abdomen pelvis w con DATE: 05/16/2024 23:09 INDICATION: Generalized abdominal pain. TECHNIQUE: Computed tomography (CT) of the abdomen and pelvis was performed with 100 mL Omnipaque 350 intravenous contrast. Automated exposure control and iterative reconstruction technique were employe d. The dose-length product was 1139.35 mGy-cm. COMPARISON: CT abdomen and pelvis 03/28/2024, 01/11/24, 03/23/24 FINDINGS: The visualized portions of the lung bases demonstrate mild atelectasis. No pleural effusion . The heart size is normal. There is a trace pericardial effusion. The liver and spleen are normal. T he gallbladder is distended. The pancreas, and adrenal glands are normal. There is cortical thinning of right kidney lower pole. There is moderate atrophy of left kidney. There is a 7 mm stone in the bl adder. There is gas in the bladder lumen, likely from recent instrumentation. The rectosigmoid is dis tended and stool-filled with wall thickening, consistent with stercoral colitis. There is a focal mil d stricture in the rectum. The appendix is not visualized. There is an aorto biiliac bypass graft. Th ere is a small amount of ascites. There are no pathologically enlarged lymph nodes. There is moderate thoracic spondylosis and mild lumbar spondylosis. There is mild chronic anterior wedging of multiple vertebral bodies. There are erosions and sclerosis of the coccyx, consistent with chronic osteomyeli tis. IMPRESSION: 1. Stercoral colitis. 2. Focal mild stricture in the rectum. 3. Gallbladder distention, which may be secondary to fasting. Correlate with physical exam to exclude acute cholecystitis. 4. Small volume of ascites. 5. Bladder stones. 6. Chronic osteomyelitis of the coccyx. Reviewed, dictated and finalized at location A. [employer] IMPRESSION: 1. Stercoral colitis. 2. Focal mild stricture in the rectum. 3. Gallbladder distention, which may be secondary to fasting. Correlate with ph ysical exam to exclude acute cholecystitis. 4. Small volume of ascites. 5. Bladder stones. 6. Chronic osteomyelitis of the coccyx.
[2024-05-16 21:29] VITALS: BP 207/102; PULSE 102; RESP 18; TEMP 36.8; O2SAT 98
[2024-05-16] MEDS: SODIUM CHLORIDE 0.9% IV 1,000 ML 999 ML IV CONT (21:51)
[2024-05-16] MEDS: ONDANSETRON INJ 4 MG/2 ML VIAL IV PUSH ×2 (21:52→23:46)
[2024-05-16] MEDS: KETOROLAC 30 MG/ML VIAL (*BKC) IV PUSH (21:52)
--- NOTE | 2024-05-16 21:54 | PC.NURSE ---
PATIENT YELLING OUT. MY STOMACH HURTS SO BAD, PLEASE HELP ME . PATIENT HAS IV LINE IN PLACE, IV FLUIDS INFUSING, MEDICATED FOR PAIN AND NAUSEA. LAB AT THE BEDSIDE OBTAINING BLOOD WORK
--- NOTE | 2024-05-16 22:13 | PC.NURSE ---
PATIENT YELLING AT NURSE SAYING WE HAVENT HELPED HER. REMINDED PATIENT THAT PAIN MEDICATIONS AND NAUSEA MEDICATIONS HAVE BEEN GIVEN. IV FLUIDS ARE INFUSING. SHE HAS TO GIVE THE MEDICATION TIME TO WORK. ER PROVIDER HEARS ENTIRE CONVERSATION. PATIENT REQUESTING MORE PAIN MEDICATION AND NAUSEA MEDICATION. ER PROVIDER AWARE
--- NOTE | 2024-05-16 22:22 | PC.NURSE ---
PATIENT CURRENTLY QUIET ON STRETCHER WITH SON AT HER SIDE. CALL LIGHT IN REACH.
[2024-05-16 22:24] LABS: Basophils Absolute Auto 0.07 K/mm3 (0.00-0.10); Basophils Percent Auto 0.4 % (0.0-1.0); Eosinophils Absolute Auto 0.02 K/mm3 (0.02-0.50); Eosinophils Percent Auto 0.1 % (1.0-6.0); Hematocrit 42.3 % (35.0-49.0); Hemoglobin 14.1 g/dL (12.0-15.0); Immature Granulocyte Absolute 0.11 K/mm3 (0.00-0.00); Immature Granulocyte Percent A 0.6 % (0.0-0.0); Lymphocytes Absolute Auto 1.33 K/mm3 (1.10-4.50); Lymphocytes Percent Auto 7.7 % (18.0-42.0); Mean Corpuscular HGB Conc 33.3 g/dL (32-36); Mean Corpuscular Hemoglobin 29.7 pg (27.0-31.0); Mean Corpuscular Volume 89.1 fL (78.0-102.0); Mean Platelet Volume 10.6 fl (9.2-11.8); Monocytes Absolute Auto 0.48 K/mm3 (0.10-0.90); Monocytes Percent Auto 2.8 % (2.0-11.0); Neutrophils Absolute Auto 15.16 K/mm3 (1.70-7.20); Neutrophils Percent Auto 88.4 % (50.0-70.0); Platelet Count Result 278 K/mm3 (150-420); Red Blood Count 4.75 M/mm3 (4.20-5.40); Red Cell Distribution Width 12.6 % (11.6-14.4); White Blood Count 17.2 K/mm3 (4.8-10.8)
[2024-05-16 22:36] LABS: SPREG INTERNAL CONTROL Positive; Serum Qual hCG Negative
[2024-05-16 22:38] LABS: Alanine Aminotransferase 25 U/L (14-59); Albumin Level 3.9 g/dL (3.4-5.0); Alkaline Phosphatase 121 U/L (46-116); Anion Gap -6 mmol/L (4-12); Aspartate Amino Transferase 11 U/L (15-37); Bilirubin,Total 0.9 mg/dL (0.00-1.00); Blood Urea Nitrogen 19 mg/dL (7-18); Calcium 10.9 mg/dL (8.5-10.1); Carbon Dioxide 40 mmol/L (21-32); Chloride 101 mmol/L (98-108); Estimated CRCL calculation 91 ml/min; Estimated Glomerular Filt Rate > 60; Glucose 235 mg/dL (70-99); Osmolality Calculated 290 mOsm/kg (285-295); Potassium 3.8 mmol/L (3.5-5.1); Sodium 135 mmol/L (136-145); Total Protein 4.1 g/dL (6.4-8.2)
[2024-05-16 22:48] LABS: Lipase < 6 U/L (16-77)
--- NOTE | 2024-05-16 22:55 | PC.NURSE ---
PATIENT TRANSPORTED TO CT VIA STRETCHER
--- NOTE | 2024-05-16 23:17 | PC.NURSE ---
PATIENT INCONTINENT OF BOWEL. CLEANED. NEW DEPENDS PLACED. REPOSITIONED FOR COMFORT. PILLOW PLACED BETWEEN KNEES. CALL LIGHT IN REACH.
--- NOTE | 2024-05-16 23:45 | PC.NURSE ---
PATIENT CURRENTLY RESTING ON STRETCHER. WAITING ON CT RESULTS. CALL LIGHT IN REACH.
[2024-05-16] MEDS: MORPHINE SULFATE (*CRX) 2 MG/ML INJ IV PUSH (23:46)
--- NOTE | 2024-05-17 00:23 | PC.NURSE ---
DR NATHAN AT THE BEDSIDE
--- NOTE | 2024-05-17 00:37 | PC.NURSE ---
PATIENT WAS UPDATED FOR TRANSFER TO [facility]
--- NOTE | 2024-05-17 00:44 | PC.NURSE ---
PATIENT CONCERNED ABOUT HER 16 YEAR OLD SON. HOW SHE WILL BE ABLE TO TAKE CARE OF HIM IF SHE GOES TO [place]. ENCOURAGED PATIENT TO CALL FAMILY/FRIENDS TO HELP CARE FOR SON.
[2024-05-17] MEDS: SODIUM CHLORIDE 0.9% IV 1,000 ML 999 ML IV CONT (01:10)
--- NOTE | 2024-05-17 01:25 | PC.NURSE ---
PATIENT HAD LARGE LOOSE STOOL. PATIENT WAS CLEANED. NEW DEPENDS PLACED. REPOSITIONED FOR COMFORT. PILLOW BETWEEN THE KNEES. CALL LIGHT IN REACH.
[2024-05-17 01:33] VITALS: BP 165/74; PULSE 102; RESP 18; O2SAT 97
[2024-05-17] MEDS: FIDAXOMICIN 200 MG TABLET PO (02:17)
--- NOTE | 2024-05-17 02:24 | ED_ITS ---
HPI - Abdominal Pain General Chief Complaint: Abdominal Pain Stated Complaint: Abdominal Pain Time Seen by Provider: 05/16/24 21:31 Source: patient Mode of arrival: ambulatory Limitations: no limitations History of Present Illness HPI narrative: patient is a 44-year-old female with significant past medical history that presents today for abdominal pain. Patient has severe abdominal pain that is generalized. 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 She is very scared no subglottic this happening again and she is having a lot abdominal pain. She says she has not had a bowel movement in 5 days. But she did have a little bit of bowel movement on her way here. She is asking for pain medications she said Toradol saw her she needs something stronger. I explained her that cannot give her something to strong that will slow down the GI track. MD elicited complaint: abdominal pain Pertinent past history: constipation, gastritis and other ( Abdominal surgery) Onset (ago): day(s) Pain Consistency: constant Location: diffuse Severity: severe Pain scale (0-10): 8 Quality: cramping and stabbing Radiation: none Exacerbating factors: eating and movement Relieving factors: bowel movement Context: confirms history of similar episodes Associated symptoms: nausea, vomiting, diarrhea and constipation Related Data Home Medications Medication Instructions Recorded Confirmed atorvastatin 20 mg tablet 20 mg PO HS 11/10/23 04/01/24 trazodone 100 mg tablet 100 mg PO HS 11/10/23 04/01/24 melatonin 10 mg tablet 10 mg PO HS 01/12/24 04/01/24 aspirin 81 mg tablet 81 mg PO DAILY 02/10/24 04/01/24 citalopram 20 mg tablet (Celexa) 20 mg PO QAM 03/23/24 04/01/24 Allergies Allergy/AdvReac Type Severity Reaction Status Date / Time azithromycin Allergy Unknown Hives Verified 04/01/24 08:28 amoxicillin AdvReac Unknown Verified 04/01/24 08:28 Review of Systems Review of Systems: All systems reviewed & are unremarkable except as noted in HPI and below Constitutional: Constitutional: Reports as per HPI Eyes: Eyes: Reports no additional eye complaints ENT: Reports system reviewed and no additional complaints, except as documented Cardiovascular: Cardiovascular: Reports no additional cardiovascular complaints Respiratory: Respiratory: Reports no additional respiratory complaints Gastrointestinal: Gastrointestinal: Reports as per HPI, Reports abdominal pain, Reports constipation, Reports diarrhea, Reports nausea and Reports vo miting Genitourinary: Genitourinary: Reports no additional female genitourinary complaints Musculoskeletal: Musculoskeletal: Reports no additional musculoskeletal complaints Integumentary/Breasts: Skin/Breast: Reports system reviewed and no additional complaints, except as docu Neurologic: Reports system reviewed and no additional complaints, except as documented Psychiatric: Psychiatric: Reports as per HPI Endocrine: Endocrine: Reports as per HPI Hematologic/Lymphatic: Hematologic/Lymphatic: Reports no additional hematologic/lymphatic complaints Allergic/Immunologic: Allergic/Immunologic: Reports no additional allergic/immunologic complaints FOR[facility]LY [facility] Past Medical History Medical History Abnormality of rectum Aortic thrombus Clostridium difficile diarrhea Deep venous thrombosis Diabetic peripheral neuropathy Hyperlipidemia Intractable nausea and vomiting Ischemic colitis Neurogenic bladder Paraplegia Spinal cord stroke Type 1 diabetes mellitus Surgical History Surgical History History of aorto-femoral bypass [facility] History of partial amputation of toe 4th and 5th toe bilaterally Family History Family History Mother Acute myocardial infarction Diabetes mellitus Hypertension Father History of blood clots Social History Social History Social History: Surrogate medical decision maker: Ml Aguilar, mother. Code status: Full code. Smoking packs per day: 0.5 Smoking cigarettes per day: 10.0 Years smoked: 25 Smoking pack-years: 12.50 Smoking status: Current every day smoker Tobacco type: cigarettes Second hand tobacco smoke exposure: Yes Alcohol intake: never Substance use: current Substance use type: marijuana Other substance usage details: daily Do You Feel Safe in your Home?: Yes Lack of Transportation: No Lack of Food: Never True Current Housing: I Have Housing Concerned About Future Housing: No Difficulty Paying Gas/Electric Bills: No Difficulty Paying for Meds: No Currently Unemployed: No Education: Associate Degree Difficulty w/ Childcare or Family Care: No Additional living arrangements comments: Lives with spouse and children in [place]. Spiritual care concerns: No Exam Const: General: healthy appearing Nutritional Appearance: well nourished Orientation/consciousness: patient oriented x3 HENMT: Head: normal to inspection Ears: external ears normal Face/Nose/Sinus: Normal external nose present Face and sinus: normal facial exam Eyes: Conjunctivae: conjunctivae normal Pupils: Equal, round and reactive pupils present EOM: EOMs intact bilaterally Neck: Neck: normal visual inspection Chest: Chest palpation & inspection: normal inspection of the chest Resp: Effort & Inspection: normal respiratory effort Auscultation: clear to auscultation bilaterally Cardio: Rate: regular rate Rhythm: regular rhythm GI: GI Palp: Yes Tenderness to palpation present (GI), Yes Guarding due to palpation present (GI), Yes Rigid due to palpation and Yes Hernia present Auscultation: Hyperactive bowel sounds present Back/Spine/Pelvis: Back: no CVA tenderness Skin: General skin exam: normal color Rashes: no rashes Wounds: no wounds Neuro: General: patient oriented x3 Cranial nerves: Yes Nystagmus not present Speech: normal speech Extrem: General: normal to inspection Psych: Mental Status: mental status grossly normal Affect: normal affect Course Reevaluation(s) Reevaluation #1: CT abdomen pelvis shows almost this prominent but colitis, recommend colonoscopy for focal possible stricture in the lower rectum with possible upstream ileus or partial large bowel obstruction. Spoke to [facility] they will accept her as she has already been there for this been the past and has developed C diff as well. We will treat her with difficile. Date: 05/17/24 Time: 02:38 Vital Signs Vital signs: Vital Signs Temperature 98.2 F 05/16/24 21:29 Pulse Rate 102 H 05/16/24 21:29 Respiratory Rate 18 05/16/24 21:29 Blood Pressure 207/102 H 05/16/24 21:29 Pulse Oximetry 98 05/16/24 21:29 Oxygen Delivery Room Air 05/16/24 21:29 Temperature 98.2 F 05/16/24 21:29 Pulse Rate 102 H 05/17/24 01:33 Respiratory Rate 18 05/17/24 01:33 Blood Pressure 165/74 H 05/17/24 01:33 Pulse Oximetry 97 05/17/24 01:33 Oxygen Delivery Room Air 05/17/24 01:33 Transfer Transfered to: [facility] Transfer rationale: Higher level of care Accepting physician: Dr. Sotomayor MDM - Abdominal Pain MDM Narrative Medical decision making narrative: patient does have extensive abdominal history she has surgery she is not sure for exactly what but major abdominal surgery that led to her being paraplegic because of sever and her or something during the surgery his zoster exactly what. She is very upset as she is in a lot of pain and screw she pain and sc reening for pain medication. Will start oral discuss her Toradol her do a CT scan the abdomen pelvis with contrast do a blood work as well. CT the abdomen pelvis did show that she has ileus and/or a large bowel obstruction. Will talk to [facility] about getting her transfer there she has been seeing that pain times in the past for the same thing and had bowel multiple bowel obstructions and also tends to get C diff at the same time. So they says that back to this and want us to get her [facility] as well. They will accept the patient and she will be transferred to [facility] for further care. Will continue her on IV fluids as well. Differential Diagnosis Differential diagnosis: Likely abdominal pain and other ( Large bowel obstr uction, ileus) Medical Records Attestation: I reviewed the patient's medical records. Lab Data Attestation: I reviewed the patient's lab results. 05/16/24 22:05 05/16/24 22:05 Labs: Lab Results 05/16/24 05/16/24 Range/Units 21:50 22:05 WBC 17.2 H (4.8-10.8) K/mm3 RBC 4.75 (4.20-5.40) M/mm3 Hgb 14.1 (12.0-15.0) g/dL Hct 42.3 (35.0-49.0) % MCV 89.1 (78.0-102.0) fL MCH 29.7 (27.0-31.0) pg MCHC 33.3 (32-36) g/dL RDW 12.6 (11.6-14.4) % Plt Count 278 (150-420) K/mm3 MPV 10.6 (9.2-11.8) fl Immature Gran % (Auto) 0.6 H (0.0-0.0) % Neut % (Auto) 88.4 H (50.0-70.0) % Lymph % (Auto) 7.7 L (18.0-42.0) % Sandoval % (Auto) 2.8 (2.0-11.0) % Eos % (Auto) 0.1 L (1.0-6.0) % Baso % (Auto) 0.4 (0.0-1.0) % Lymph # (Auto) 1.33 (1.10-4.50) K/mm3 Sandoval # (Auto) 0.48 (0.10-0.90) K/mm3 Eos # (Auto) 0.02 (0.02-0.50) K/mm3 Baso # (Auto) 0.07 (0.00-0.10) K/mm3 Abs Immat Gran (auto) 0.11 H (0.00-0.00) K/mm3 Absolute Neuts (auto) 15.16 H (1.70-7.20) K/mm3 Absolute Nucleated RBC 0.00 (0.00-0.00) K/mm3 Nucleated RBC % 0.0 (0-0.0) % Sodium 135 L (136-145) mmol/L Potassium 3.8 (3.5-5.1) mmol/L Chloride 101 (98-108) mmol/L Carbon Dioxide 40 H (21-32) mmol/L Anion Gap -6 L (4-12) mmol/L BUN 19 H (7-18) mg/dL Creatinine 0.89 (0.55-1.02) mg/dL Estim Creat Clear Calc 91 ml/min Estimated GFR > 60 (59 - ) Glucose 235 H (70-99) mg/dL Calculated Osmolality 290 (285-295) mOsm/kg Lactic Acid 2.0 (0.4-2.0) mmol/L Calcium 10.9 H (8.5-10.1) mg/dL Total Bilirubin 0.9 (0.00-1.00) mg/dL AST 11 L (15-37) U/L ALT 25 (14-59) U/L Alkaline Phosphatase 121 H (46-116) U/L Total Protein 4.1 L (6.4-8.2) g/dL Albumin 3.9 (3.4-5.0) g/dL Lipase < 6 L (16-77) U/L Serum HCG, Qual Negative Imaging Data Attestation: I personally reviewed and interpreted this imaging study as follows: Discharge Plan Discharge Clinical Impression: Large bowel obstruction, C. difficile colitis, Ileus Patient Disposition: Acute Care Hospital Condition: Stable Instructions: Bowel Obstruction (ED) Additional Instructions: patient is being transferred to [facility] for further care. Prescriptions: No Action prochlorperazine maleate [Compazine] 10 mg tablet 10 mg PO Q8H PRN (Reason: nausea and vomiting) Qty: 20 0RF vancomycin 125 mg Capsule 125 mg PO Q6HR Qty: 160 0RF pantoprazole 40 mg Tablet,Delayed Release (Dr/Ec) 40 mg PO QAM Qty: 15 0RF bisacodyl 10 mg suppository 10 mg RECTAL PRN 1 Days Qty: 30 0RF polyethylene glycol 3350 [Miralax] 17 gram Powder In Packet 17 g PO PRN Qty: 30 0RF melatonin 10 mg Tablet 10 mg PO HS atorvastatin 20 mg tablet 20 mg PO HS trazodone 100 mg Tablet 100 mg PO HS aspirin 81 mg Tablet 81 mg PO DAILY citalopram [Celexa] 20 mg tablet 20 mg PO QAM nortriptyline 10 mg Capsule 10 mg PO HS Qty: 30 0RF Follow-up/Referrals: Samson,KAMRAN Nair [Primary Care Provider] - Time of Disposition: 02:36
[2024-05-17] MEDS: MORPHINE SULFATE (*CRX) 2 MG/ML INJ IV PUSH (02:25)
[2024-05-17] MEDS: ONDANSETRON INJ 4 MG/2 ML VIAL IV PUSH (02:25)
== END 2024-05-17 02:46 | disposition short-term general hospital (02) ==
PROVIDERS: Emergency Provider Family Medicine; PCP Physician Assistant
DX: K56.609 Unspecified intestinal obstruction, unspecified as to partial versus complete obstruction (principal); A04.72 Enterocolitis due to Clostridium difficile, not specified as recurrent; K56.7 Ileus, unspecified; E78.5 Hyperlipidemia, unspecified; E10.9 Type 1 diabetes mellitus without complications; F17.210 Nicotine dependence, cigarettes, uncomplicated
CPT/HCPCS: 36415; 74177; 80053; 83605; 83690; 84703; 85025; 96361; 96374; 96375; 96376; 99285; A9270; J1885; J2270; J2405; J7030; Q9967

== ENCOUNTER 2024-05-17 03:23 | Inpatient (IN) | payer OTHER, MEDICAID, SELFPAY ==
[2024-05-17] VITALS (7 sets, daily range): BP systolic 143–165; BP diastolic 67–90; PULSE 87–100; RESP 16–20; TEMP 36.6–36.8; O2SAT 97–100; BMI 25.4
--- NOTE | ~2024-05-17 | XR_ITS ---
EXAMINATION: XR abdomen/kub 1V DATE: 05/18/2024 09:17 INDICATION: Fecal impaction. TECHNIQUE: A supine view of the abdomen on 2 radiographs was obtained. COMPARISON: Abdomen radiographs 01/15/2024, CT abdomen and pelvis 05/16/2024 FINDINGS: There are no dilated loops of bowel. There is a moderate volume of stool in the colon. Ther e are surgical clips in left abdomen. There is a vascular stent in left abdomen. There is sclerosis o f the coccyx. IMPRESSION: 1. Nonobstructive bowel gas pattern. 2. Sclerosis of the coccyx, consistent with chronic osteomyelitis. Reviewed, dictated and finalized at location A. [employer]
[2024-05-17] MEDS: metroNIDAZOLE 500 MG/ISO 100ML 500 MG/100 ML BAG 100 MG IVPB ×3 (04:30→21:26)
[2024-05-17] MEDS: MORPHINE SULFATE (*CRX) 4 MG/ML INJ IV PUSH ×4 (04:30→18:23)
[2024-05-17] MEDS: SODIUM CHLORIDE 0.9% IV 1,000 ML 100 ML IV CONT (04:30)
[2024-05-17] MEDS: ONDANSETRON INJ 4 MG/2 ML VIAL IV PUSH ×2 (04:30→11:58)
[2024-05-17 05:50] LABS: Basophils Percent Auto 0.3 % (0.2-1.2); Eosinophils Percent Auto 0.2 % (0-4.4); Hematocrit 34.6 % (37.0-47.0); Hemoglobin 11.8 g/dL (12.0-15.0); Immature Granulocyte Absolute 0.06 K/mm3 (0.00-0.031); Immature Granulocyte Percent A 0.5 % (0-0.5); Lymphocytes Absolute Auto 2.15 K/mm3 (0.9-3.2); Lymphocytes Percent Auto 16.4 % (18.3-44.2); Mean Corpuscular HGB Conc 34.1 g/dl (32-36); Mean Corpuscular Hemoglobin 30.7 pg (26-34); Mean Corpuscular Volume 90.1 fl (80-100); Mean Platelet Volume 9.8 fl (7.4-10.4); Monocytes Absolute Auto 0.8 K/mm3 (0.1-0.6); Neutrophils Absolute Auto 10.1 K/mm3 (1.3-6.7); Neutrophils Percent Auto 76.6 % (45.5-73.1); Platelet Count Result 261 k/mm3 (150-375); Red Blood Count 3.84 M/mm3 (4.2-5.4); White Blood Count 13.1 K/mm3 (4.5-10.0)
[2024-05-17 06:03] LABS: Anion Gap 8 mmol/L (4-12); Blood Urea Nitrogen 21 mg/dL (7-17); Calcium 9.6 mg/dL (8.4-10.2); Carbon Dioxide 18 mmol/L (22-30); Chloride 111 mmol/L (98-107); Estimated CRCL calculation 111 ml/min; Estimated Glomerular Filt Rate > 60; Glucose 159 mg/dL (65-110); Sodium 137 mmol/L (137-145)
--- NOTE | 2024-05-17 07:18 | PM.IMHP ---
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 Patient was admitted 03/22/2024 and 03/28/2024 C diff. This last hospitalization she was discharged on 6 weeks of oral vancomycin. patient states that recently she went to her [facility] and had her pain management changed intensely increasing constipation. She was taking MiraLax and senna at home but has increased abdominal pain over the last few days. She states that yesterday she felt extremely bloated and Vomited 1 time yesterday. Review of Systems Review of Systems: 12 systems were reviewed and are negative except for as per HPI. [facility] Past Medical History Medical History Abnormality of rectum Aortic thrombus Clostridium difficile diarrhea Deep venous thrombosis Diabetic peripheral neuropathy Hyperlipidemia Intractable nausea and vomiting Ischemic colitis Neurogenic bladder Paraplegia Spinal cord stroke Type 1 diabetes mellitus Surgical History Surgical History History of aorto-femoral bypass [facility] History of partial amputation of toe 4th and 5th toe bilaterally Family History Family History Mother Acute myocardial infarction Diabetes mellitus Hypertension Father History of blood clots Social History Social History Social History: Surrogate medical decision maker: Ml Aguilar, mother. Code status: Full code. Smoking packs per day: 0.33 Smoking cigarettes per day: 6.6 Years smoked: 25 Smoking pack-years: 8.25 Smoking status: Current every day smoker Tobacco type: cigarettes Second hand tobacco smoke exposure: Yes Alcohol intake: former Substance use: current Substance use type: marijuana Other substance usage details: daily Do You Feel Safe in your Home?: Yes Lack of Transportation: No Lack of Food: Never True Current Housing: I Have Housing Concerned About Future Housing: No Difficulty Paying Gas/Electric Bills: No Difficulty Paying for Meds: No Currently Unemployed: No Education: Associate Degree Difficulty w/ Childcare or Family Care: No Additional living arrangements comments: Lives with spouse and children in [place]. Spiritual care concerns: Yes Meds Home Medications and Allergies Home Medications Medication Instructions Recorded Confirmed Type atorvastatin 20 mg tablet 20 mg PO HS 11/10/23 05/17/24 History trazodone 100 mg tablet 150 mg PO HS 11/10/23 05/17/24 History melatonin 10 mg tablet 10 mg PO HS 01/12/24 05/17/24 History aspirin 81 mg tablet 81 mg PO DAILY 02/10/24 05/17/24 History citalopram 20 mg tablet (Celexa) 20 mg PO QAM 03/23/24 05/17/24 History nortriptyline 10 mg capsule 10 mg PO HS #30 caps 03/25/24 05/17/24 Rx acidophilus 100 million 1 cap PO QAM 05/17/24 05/17/24 History cell-pectin, citrus 10 mg capsule cranberry 500 mg capsule 500 mg PO QAM 05/17/24 05/17/24 History oxycodone-acetaminophen 5 mg-325 1 tablet PO TID PRN Pain 05/17/24 05/17/24 History mg tablet Allergies Allergy/AdvReac Type Severity Reaction Status Date / Time azithromycin Allergy Unknown Hives Verified 05/17/24 03:37 amoxicillin AdvReac Unknown Verified 05/17/24 03:37 Vital Signs Vital Signs - 24 hr 05/17/24 04:04 05/17/24 04:50 05/17/24 04:55 Temperature 97.8 F Pulse Rate 98 98 Respiratory Rate 16 Blood Pressure 165/90 H Pulse Oximetry 98 Oxygen Delivery Room Air Exam Narrative: General: well appearing, appears stated age. HEENT: normocephalic, atraumatic. Mucous membranes moist. EOMI, PERRLA, bilateral sclera anicteric, no conjunctival injection. Neck supple without JVD, lymphadenopathy, or bruit. Respiratory: clear to ascultation bilaterally. No rales/rhonic/wheezes. Cardiovascular: Regular rate and rhythm, normal S1-S2 upon ascultation. No murmurs, rubs, or clicks. PMI is nondisplaced, capillary refill less than 3 second. Abdomen: Soft, round, no pulsatile masses, nondistended and nontender. No rebound, no guarding. No CVA tenderness, no hepatosplenomegaly. Bowel sounds present to all four quadrants. No high pitch or tinkling sounds, resonant to percussion. Extremities: No cyanosis, clubbing, or edema present. Pulses are palpable 2/2. Active ROM to upper extremities. Neuro: Alert and orientated x 4. PERRLA. Skin: Warm, dry, and intact, without rash, erythema, or lesion. Psych: pleasant, cooperative, normal speech, normal affect, no hallucinations, no dysarthia H&P: Results Labs Labs: Short CBC 05/17/24 Range/Units 05:37 WBC 13.1 H (4.5-10.0) K/mm3 Hgb 11.8 L (12.0-15.0) g/dL Hct 34.6 L (37.0-47.0) % Plt Count 261 (150-375) k/mm3 BMP 05/17/24 05:37 Sodium 137 Potassium 4.0 Chloride 111 H Carbon Dioxide 18 L BUN 21 H Creatinine 0.70 Glucose 159 H Calcium 9.6 Assessment and Plan Assessment and plan (1) Constipation: Code(s): K59.00 - Constipation, unspecified Status: Inactive Assessment and Plan: lactulose enemas oral lactulose start MiraLax, senna, and Linzess tomorrow IV Zosyn for Stercoral colitis, patient has a high chance recurrence of C Diff okay for clear room diet if there is no vomiting (2) Kidney stone: Code(s): N20.0 - Calculus of kidney Status: Acute Assessment and Plan: incidental finding on CT 7 mm stone in the bladder (3) Leukocytosis: Code(s): D72.829 - Elevated white blood cell count, unspecified Status: Acute Assessment and Plan: UA pending could be due to colitis Quality VTE Prophylaxis VTE prophylaxis: mechanical ordered and pharmacologic ordered Hospitalist MIPS Advance Care Plan I have confirmed that the patient's Advanced Care Plan is present, code status is documented, or surrogate decision maker is listed in patient medical record.: Yes Medication Reconciliation I have utilized all available resources to obtain, update and review the patients current medications (includes all prescriptions, OTC, herbals, cannabis, and nutritional supplements).: Yes
[2024-05-17] MEDS: FIDAXOMICIN 200 MG TABLET PO ×2 (09:00→21:27)
[2024-05-17] MEDS: SENNA/DOCUSATE SODIUM TABLET 1 TAB PO ×2 (09:00→17:07)
[2024-05-17] MEDS: ASPIRIN 81 MG ENTERIC TABLET PO (09:01)
[2024-05-17] MEDS: ENOXAPARIN 40 MG/0.4 ML SYRINGE SUB-Q (09:01)
[2024-05-17] MEDS: CITALOPRAM HYDROBROMIDE 20 MG TABLET PO (09:01)
[2024-05-17] MEDS: LACTULOSE 20 GM/30 ML UDC PO ×2 (09:02→17:07)
[2024-05-17] MEDS: LACTULOSE ENEMA 200 GM/1,000 ML ENEMA RECTAL (11:59)
--- NOTE | 2024-05-17 14:13 | ECG_ITS ---
Test Date: 2024-05-17 15:04:58 Measurements Intervals [place] Rate: 81 P: 69 MN: 186 QRS: 39 QRSD: 107 T: 33 QT: 377 QTc: 439 Interpretive Statements SINUS RHYTHM NORMAL ECG Electronically Signed On 05-18-2024 08:54:49 CHIEF PSYCHOLOGY by Mamadou Byrne M.D.
[2024-05-17] MEDS: levoFLOXacin 750 MG/D5W 150 ML 750 MG/150 ML BAG 100 MG IVPB (16:04)
[2024-05-17 16:14] LABS: Add Urine Microscopic? YES; Appearance Urine Cloudy (Clear); Bacteria Urine 4+ /hpf; Bilirubin Urine Negative (Negative); Blood Urine 2+ (Negative); Color Urine Yellow (Yellow); Glucose Urine UA Negative (Negative); Ketones Urine Negative (Negative); Leukocyte Esterase Ur 2+ LEU/UL (Negative); Nitrate Urine Negative (Negative); Protein Urine Trace mg/dL (Negative); RBC Urine 51-100 /hpf (0-2); Specific Grav Ur 1.022 (1.001-1.035); Squamous Epithelial Cell Urine None Seen /hpf (Few); Urobilinogen Urine 0.2 mg/dL (<2.0); WBC Urine 21-50 /hpf (0-3)
--- NOTE | 2024-05-17 18:58 | PC.NURSE ---
Patient refusing lactulose enema at this time. Stating she is not feeling well enough to take it at this time.
[2024-05-17] MEDS: SODIUM CHLORIDE 0.9% IV 1,000 ML 75 ML IV CONT (21:26)
[2024-05-17] MEDS: ATORVASTATIN 20 MG TABLET PO (21:27)
[2024-05-17] MEDS: MELATONIN 5 MG TABLET 10 MG PO (21:27)
[2024-05-17] MEDS: NORTRIPTYLINE HCL 10 MG CAPSULE PO (21:27)
[2024-05-17] MEDS: traZODone HCL 50 MG TABLET 150 MG PO (21:27)
[2024-05-18] VITALS (13 sets, daily range): BP systolic 125–169; BP diastolic 55–86; PULSE 70–99; RESP 17–19; TEMP 36.2–37.3; O2SAT 97–100
[2024-05-18] MEDS: MORPHINE SULFATE (*CRX) 4 MG/ML INJ IV PUSH ×5 (00:52→19:34)
[2024-05-18] MEDS: LINACLOTIDE 72 MCG CAPSULE PO (06:43)
[2024-05-18] MEDS: metroNIDAZOLE 500 MG/ISO 100ML 500 MG/100 ML BAG 100 MG IVPB (06:43)
[2024-05-18] MEDS: polyethylene glycoL 3350 17 GM POWD.PACK PO (06:43)
--- NOTE | 2024-05-18 07:29 | PM.IMPN ---
Progress Note: A&P Assessment and Plan (1) Constipation: Code(s): K59.00 - Constipation, unspecified Status: Inactive Assessment and Plan: patient did not have diarrhea on admission it is medication induced lactulose enemas oral lactulose start MiraLax, senna, and Linzess tomorrow IV Flagyl and levofloxacin for Stercoral colitis, patient has a high chance recurrence of C Diff okay to advance diet if okay with surgery KUB still shows heavy stool burden (2) Kidney stone: Code(s): N20.0 - Calculus of kidney Status: Acute Assessment and Plan: incidental finding on CT 7 mm stone in the bladder (3) UTI (urinary tract infection): Qualifiers: Encounter type: initial encounter Indwelling urinary catheter type: indwelling urethral catheter Urinary tract infection type: catheter-associated UTI Qualified Code(s): T83.511A - Infection and inflammatory reaction due to indwelling urethral catheter, initial encounter; N39.0 - Urinary tract infection, site not specified Code(s): N39.0 - Urinary tract infection, site not specified Status: Acute Assessment and Plan: cultures and sensitivities pending (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 Correlate with physical exam to exclude acute cholecystitis. 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 Diarrhea medication induced. UA positive for 2+ leukocyte esterase and 4+ bacteria patient on meropenem Surgery consulted pending recommendations, okay to advance diet per hospitalist if okay with surgery. Patient complaining of severe abdominal cramping likely due to laxative which are absolutely necessary, Toradol added, patient is also having Menstrual cramps which muscle relaxers were added. patient states that she feels like she has these infection coming on 7 day course of metronidazole. Patient states that she was working with PT and OT outpatient on standing and walking will order. Review of Systems Review of Systems: 12 systems were reviewed and are negative except for as per HPI. Exam Narrative: General: well appearing, appears stated age. HEENT: normocephalic, atraumatic. Mucous membranes moist. EOMI, PERRLA, bilateral sclera anicteric, no conjunctival injection. Neck supple without JVD, lymphadenopathy, or bruit. Respiratory: clear to ascultation bilaterally. No rales/rhonic/wheezes. Cardiovascular: Regular rate and rhythm, normal S1-S2 upon ascultation. No murmurs, rubs, or clicks. PMI is nondisplaced, capillary refill less than 3 second. Abdomen: Soft, round, no pulsatile masses, nondistended and nontender. No rebound, no guarding. No CVA tenderness, no hepatosplenomegaly. Bowel sounds present to all four quadrants. No high pitch or tinkling sounds, resonant to percussion. Extremities: No cyanosis, clubbing, or edema present. Pulses are palpable 2/2. Active ROM to upper extremities. Neuro: Alert and orientated x 4. PERRLA. Skin: Warm, dry, and intact, without rash, erythema, or lesion. Psych: pleasant, cooperative, normal speech, normal affect, no hallucinations, no dysarthia Objective Data Vital Signs Vital Signs: Vital Signs - 24 hr 05/17/24 08:00 05/17/24 08:58 05/17/24 08:00 Temperature 98.2 F Pulse Rate 100 89 Respiratory Rate 18 Blood Pressure 143/75 H Pulse Oximetry 100 Oxygen Delivery Room Air 05/17/24 12:00 05/17/24 12:00 05/17/24 16:00 Temperature 98.2 F Pulse Rate 93 98 87 Respiratory Rate 20 Blood Pressure 149/67 H Pulse Oximetry 97 Oxygen Delivery 05/17/24 20:00 05/17/24 21:59 05/17/24 20:00 Temperature 98.0 F 98.0 F Pulse Rate 89 89 89 Respiratory Rate 18 18 18 Blood Pressure 144/69 H 144/69 H Pulse Oximetry 100 100 100 Oxygen Delivery Room Air 05/17/24 20:00 05/18/24 00:00 05/18/24 00:00 Temperature 98.8 F Pulse Rate 88 88 78 Respiratory Rate 18 Blood Pressure 131/71 Pulse Oximetry 100 Oxygen Delivery 05/18/24 04:00 05/18/24 04:00 05/18/24 06:00 Temperature 97.7 F 97.3 F L Pulse Rate 70 77 81 Respiratory Rate 18 18 Blood Pressure 125/55 L 157/64 H Pulse Oximetry 100 100 Oxygen Delivery Intake/Output Intake/Output: Intake & Output 05/15/24 05/16/24 05/17/24 05/18/24 23:59 23:59 23:59 23:59 Intake Total 2740.0 Output Total 2200 600 Balance 540.0 -600 Meds/Results Medications: Active Medications Generic Name Dose Route Start Last Admin Trade Name Freq PRN Reason Stop Dose Admin Acetaminophen 650 mg 05/17/24 03:11 Acetaminophen 325 Mg Tablet PO Q4H PRN Mild Pain (1-3) or Fever Hydrocodone Bitart/Acetaminophen 1 tab 05/17/24 17:50 Hydrocodone/Acetaminophen (*Crx) 10-325 Mg Tablet PO Q4H PRN Moderate Pain (4-6) Aspirin 81 mg 05/17/24 09:00 05/17/24 09:01 Aspirin 81 Mg Enteric Tablet PO 81 mg QAM SUSANNE Administration Atorvastatin Calcium 20 mg 05/17/24 21:00 05/17/24 21:27 Atorvastatin 20 Mg Tablet PO 20 mg HS SUSANNE Administration Citalopram Hydrobromide 20 mg 05/17/24 09:00 05/17/24 09:01 Citalopram Hydrobromide 20 Mg Tablet PO 20 mg QAM SUSANNE Administration Enoxaparin Sodium 40 mg 05/17/24 09:00 05/17/24 09:01 Enoxaparin 40 Mg/0.4 Ml Syringe SUB-Q 40 mg DAILY SUSANNE Administration Fidaxomicin 200 mg 05/17/24 09:00 05/17/24 21:27 Fidaxomicin 200 Mg Tablet PO 05/27/24 08:59 200 mg Q12HR SUSANNE Administration Metronidazole 500 mg in 100 mls @ 100 mls/hr 05/17/24 04:00 05/18/24 06:43 Flagyl 500 Mg/Iso Soln 100 Ml IVPB 100 mls/hr Q8HR SUSANNE Administration Sodium Chloride 1,000 mls @ 75 mls/hr 05/17/24 03:10 05/17/24 21:26 Normal Saline Iv IV CONT 75 mls/hr .[id number] SUSANNE Administration Levofloxacin/Dextrose 750 mg in 150 mls @ 100 mls/hr 05/17/24 15:00 05/17/24 16:04 Levaquin 750 Mg/D5w 150 Ml IVPB 100 mls/hr Q24H SUSANNE Administration Lactulose 200 gm 05/17/24 09:00 05/17/24 23:15 Lactulose Enema 200 Gm/1,000 Ml Enema RECTAL 05/18/24 21:00 Not Given BID SUSANNE Linaclotide 72 mcg 05/18/24 06:30 05/18/24 06:43 Linaclotide 72 Mcg Capsule PO 72 mcg DAILY@0630 SUSANNE Administration Melatonin 10 mg 05/17/24 21:00 05/17/24 21:27 Melatonin 5 Mg Tablet PO 10 mg HS SUSANNE Administration Morphine Sulfate 4 mg 05/17/24 03:09 05/18/24 06:43 Morphine Sulfate (*Crx) 4 Mg/Ml Inj IV PUSH 4 mg Q4H PRN Administration Pain Rated 7-10 Nortriptyline HCl 10 mg 05/17/24 21:00 05/17/24 21:27 Nortriptyline Hcl 10 Mg Capsule PO 10 mg HS SUSANNE Administration Polyethylene Glycol 17 gm 05/18/24 07:30 05/18/24 06:43 Polyethylene Glycol 3350 17 Gm Powd.Pack PO 17 gm QAM SUSANNE Administration Senna/Docusate Sodium 1 tab 05/17/24 09:00 05/17/24 17:07 Senna/Docusate Sodium Tablet PO 1 tab BID SUSANNE Administration Trazodone HCl 150 mg 05/17/24 21:00 05/17/24 21:27 Trazodone Hcl 50 Mg Tablet PO 150 mg HS SUSANNE Administration Labs Labs: Laboratory Results - last 24 hr 05/17/24 15:45 Urine Color Yellow Urine Appearance Cloudy H Urine pH 6.0 Ur Specific [place] 1.022 Urine Protein Trace Urine Glucose (UA) Negative Urine Ketones Negative Ur Blood (Man) 2+ H Urine Nitrate Negative Urine Bilirubin Negative Urine Urobilinogen 0.2 Ur Leukocyte Esterase 2+ H Urine RBC 51-100 H Urine WBC 21-50 H Ur Squamous Epith Cells None seen Urine Bacteria 4+ H Urine Casts 3-5 Imaging Radiologist's impression: CT abdomen and pelvis 03/28/2024, 01/11/24, 03/23/24 FINDINGS: The visualized portions of the lung bases demonstrate mild atelectasis. No pleural effusion. The heart size is normal. There is a trace pericardial effusion. The liver and spleen are normal. The gallbladder is distended. The pancreas, and adrenal glands are normal. There is cortical thinning of right kidney lower pole. There is moderate atrophy of left kidney. There is a 7 mm stone in the bladder. There is gas in the bladder lumen, likely from recent instrumentation. The rectosigmoid is distended and stool-filled with wall thickening, consistent with stercoral colitis. There is a focal mild stricture in the rectum. The appendix is not visualized. There is an aorto biiliac bypass graft. There is a small amount of ascites. There are no pathologically enlarged lymph nodes. There is moderate thoracic spondylosis and mild lumbar spondylosis. There is mild chronic anterior wedging of multiple vertebral bodies. There are erosions and sclerosis of the coccyx, consistent with chronic osteomyelitis. IMPRESSION: 1. Stercoral colitis. 2. Focal mild stricture in the rectum. 3. Gallbladder distention, which may be secondary to fasting. Correlate with physical exam to exclude acute cholecystitis. 4. Small volume of ascites. 5. Bladder stones. 6. Chronic osteomyelitis of the coccyx. ECG Interpretation: 2024-03-23 02:58:37 Measurements Intervals [place] Rate: 112 P: 60 VT: 180 QRS: 59 QRSD: 89 T: 69 QT: 338 QTc: 463 Interpretive Statements SINUS TACHYCARDIA POOR R-WAVE PROGRESSION BORDERLINE ECG Quality VTE Prophylaxis VTE prophylaxis: mechanical ordered and pharmacologic ordered Hospitalist [facility] Advance Care Plan I have confirmed that the patient's Advanced Care Plan is present, code status is documented, or surrogate decision maker is listed in patient medical record.: Yes Medication Reconciliation I have utilized all available resources to obtain, update and review the patients current medications (includes all prescriptions, OTC, herbals, cannabis, and nutritional supplements).: Yes
[2024-05-18] MEDS: ENOXAPARIN 40 MG/0.4 ML SYRINGE SUB-Q (08:32)
[2024-05-18] MEDS: FIDAXOMICIN 200 MG TABLET PO (08:32)
[2024-05-18] MEDS: LACTULOSE ENEMA 200 GM/1,000 ML ENEMA RECTAL ×2 (08:33→17:10)
[2024-05-18] MEDS: SENNA/DOCUSATE SODIUM TABLET 1 TAB PO ×2 (08:33→17:09)
[2024-05-18] MEDS: ASPIRIN 81 MG ENTERIC TABLET PO (08:33)
[2024-05-18] MEDS: CITALOPRAM HYDROBROMIDE 20 MG TABLET PO (08:33)
[2024-05-18] MEDS: SODIUM CHLORIDE 0.9% IV 1,000 ML 75 ML IV CONT (10:34)
[2024-05-18] MEDS: MEROPENEM 1 GM/NS 100 ML 1 GM/100 ML BAG IVPB ×2 (10:37→17:10)
[2024-05-18 11:05] LABS: Hemoglobin 11.5 g/dL (12.0-15.0); Mean Corpuscular HGB Conc 32.9 g/dl (32-36); Mean Corpuscular Hemoglobin 30.6 pg (26-34); Mean Corpuscular Volume 93.1 fl (80-100); Platelet Count Result 233 k/mm3 (150-375); Red Blood Count 3.76 M/mm3 (4.2-5.4); White Blood Count 6.2 K/mm3 (4.5-10.0)
[2024-05-18 11:23] LABS: Anion Gap 8 mmol/L (4-12); Blood Urea Nitrogen 12 mg/dL (7-17); Calcium 9.5 mg/dL (8.4-10.2); Carbon Dioxide 21 mmol/L (22-30); Chloride 109 mmol/L (98-107); Estimated CRCL calculation 111 ml/min; Estimated Glomerular Filt Rate > 60; Glucose 178 mg/dL (65-110); Potassium 3.8 mmol/L (3.4-5.0); Sodium 138 mmol/L (137-145)
[2024-05-18] MEDS: KETOROLAC 15 MG/ML VIAL (*BKC) IV PUSH ×2 (13:16→18:07)
[2024-05-18] MEDS: CYCLOBENZAPRINE HCL 5 MG TABLET PO ×2 (13:17→21:16)
[2024-05-18] MEDS: BISACODYL 10 MG SUPPOSITORY RECTAL (13:26)
--- NOTE | 2024-05-18 13:48 | P.CONGS_ITS ---
Assessment and Plan Assessment and plan (1) Rectal stricture: Code(s): K62.4 - Stenosis of anus and rectum Status: Acute Assessment and Plan: This appears to be a chronic rectal stricture that was evaluated endoscopically in December of 2023 and was benign at that time secondary to ischemic colitis. She has been treated with recurrent Cdiff colitis a few times since that hospitalization. She returns now with proctocolitis and a rectal stricture that is causing a partial large bowel obstruction. She is moving her bowels and is tolerating clear liquids. Her abdominal exam is benign and her WBC count has normalized. No indication for urgent surgical intervention. She has had this stricture dilated endoscopically in the past. Will consult GI for their recommendations. Continue to follow along for now. Patient is adamant about wanting to avoid an ostomy. (2) Large bowel obstruction: Code(s): K56.609 - Unspecified intestinal obstruction, unspecified as to partial versus complete obstruction Status: Acute Assessment and Plan: Partial large bowel obstruction secondary to the rectal stricture. She has had multiple bowel movements since admission following the enemas. She had a colonoscopy in December of 2023 that showed a benign-appearing rectal stricture secondary to ischemic colitis with balloon dilation. Will keep her on clear liquids now, which she is tolerating well, until she is evaluated by GI. If she has evidence of a high-grade obstruction, she may require surgical intervention. Will continue to follow along. Patient is adamant about wanting to avoid a diverting colostomy. 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 No complaints of RUQ abdominal pain or tenderness on exam. No other findings of cholecystitis or cholelithiasis on CT. Her abdominal pain is most likely caused by the proctocolitis and constipation with possible partial large bowel obstruction. See plan above. Continue to monitor and could evaluate the gallbladder further if she develops RUQ pain. (5) C. difficile colitis: Code(s): A04.72 - Enterocolitis due to Clostridium difficile, not specified as recurrent Status: Acute Assessment and Plan: History of recurrent C diff colitis with recent hospitalization and treatment in March. WBC normalized and no reports of diarrhea. Management per Hospitalist. Plan I have discussed the patient's case and plan of care with Dr. Mcdonald. 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 She is well known to our service due to multiple previous hospitalizations for a sacral decubitus ulcer with chronic osteomyelitis and ischemic colitis. She also has had recurrent C diff colitis with a recent hospitalization in March her she was treated for C diff. She was also admitted in December of 2023 for ischemic colitis and she was seen by our service for her healing sacral decubitus ulcer. During that hospitalization, she had an EGD and colonoscopy due to findings of rectal wall thickening on imaging. Colonoscopy showed severe benign-appearing intrinsic stenosis in the rectum at about 5 cm from the anal verge related to ischemic colitis. Multiple biopsies were taken that showed ischemic colitis. She had transendoscopic balloon dilation at that time. She has chronic pain requiring chronic narcotic use and has noticed increasing constipation. She was taking MiraLax and stool softeners at home without relief. She had not had a bowel movement for 5-7 days and reported left lower quadrant abdominal pain and bloating with distension. She also had 1 episode of vomiting 2 days ago. She then decided to come to [facility] yesterday for evaluation for abdominal pain and constipation. Labs showed a white blood cell count 00139, which has normalized. CT scan of the abdomen and pelvis shows stair coral colitis, focal mild stricture in the rectum, gallbladder distension without other signs of cholecystitis, small volume of ascites, bladder stones, and chronic osteomyelitis of the coccyx. The initial wound virtual radiologist also mentioned a possible partial large bowel obstruction secondary to the rectal stricture. She has been given 2 enemas since admission and has had at least 2 good bowel movements. She reports having lots of flatus and stool passing with flatus intermittently today. She is still complaining of abdominal pain, but reports the pain and bloating has improved since admission. She still reports it is mostly in the left lower quadrant. Per nursing, her stage 4 sacral decubitus is healed. Review of Systems Review of Systems: All systems reviewed & are unremarkable except as noted in HPI and below PMFSH Past Medical History Medical History Abnormality of rectum Aortic thrombus Clostridium difficile diarrhea Deep venous thrombosis Diabetic peripheral neuropathy Hyperlipidemia Intractable nausea and vomiting Ischemic colitis Neurogenic bladder Paraplegia Spinal cord stroke Type 1 diabetes mellitus Surgical History Surgical History History of aorto-femoral bypass [facility] History of partial amputation of toe 4th and 5th toe bilaterally Family History Family History Mother Acute myocardial infarction Diabetes mellitus Hypertension Father History of blood clots Social History Social History Social History: Surrogate medical decision maker: Ml Aguilar, mother. Code status: Full code. Smoking packs per day: 0.33 Smoking cigarettes per day: 6.6 Years smoked: 25 Smoking pack-years: 8.25 Smoking status: Current every day smoker Tobacco type: cigarettes Second hand tobacco smoke exposure: Yes Alcohol intake: former Substance use: current Substance use type: marijuana Other substance usage details: daily Do You Feel Safe in your Home?: Yes Lack of Transportation: No Lack of Food: Never True Current Housing: I Have Housing Concerned About Future Housing: No Difficulty Paying Gas/Electric Bills: No Difficulty Paying for Meds: No Currently Unemployed: No Education: Associate Degree Difficulty w/ Childcare or Family Care: No Additional living arrangements comments: Lives with spouse and children in [place]. Spiritual care concerns: Yes Meds Home Medications and Allergies Home Medications Medication Instructions Recorded Confirmed Type atorvastatin 20 mg tablet 20 mg PO HS 11/10/23 05/17/24 History trazodone 100 mg tablet 150 mg PO HS 11/10/23 05/17/24 History melatonin 10 mg tablet 10 mg PO HS 01/12/24 05/17/24 History aspirin 81 mg tablet 81 mg PO DAILY 02/10/24 05/17/24 History citalopram 20 mg tablet (Celexa) 20 mg PO QAM 03/23/24 05/17/24 History nortriptyline 10 mg capsule 10 mg PO HS #30 caps 03/25/24 05/17/24 Rx acidophilus 100 million 1 cap PO QAM 05/17/24 05/17/24 History cell-pectin, citrus 10 mg capsule cranberry 500 mg capsule 500 mg PO QAM 05/17/24 05/17/24 History oxycodone-acetaminophen 5 mg-325 1 tablet PO TID PRN Pain 05/17/24 05/17/24 History mg tablet Allergies Allergy/AdvReac Type Severity Reaction Status Date / Time azithromycin Allergy Unknown Hives Verified 05/17/24 03:37 amoxicillin AdvReac Unknown Verified 05/17/24 03:37 Vital Signs Vital Signs - 24 hr 05/17/24 16:00 05/17/24 20:00 05/17/24 21:59 Temperature 98.0 F 98.0 F Pulse Rate 87 89 89 Respiratory Rate 18 18 Blood Pressure 144/69 H 144/69 H Pulse Oximetry 100 100 Oxygen Delivery 05/17/24 20:00 05/17/24 20:00 05/18/24 00:00 Temperature 98.8 F Pulse Rate 89 88 88 Respiratory Rate 18 18 Blood Pressure 131/71 Pulse Oximetry 100 100 Oxygen Delivery Room Air 05/18/24 00:00 05/18/24 04:00 05/18/24 04:00 Temperature 97.7 F Pulse Rate 78 70 77 Respiratory Rate 18 Blood Pressure 125/55 L Pulse Oximetry 100 Oxygen Delivery 05/18/24 06:00 05/18/24 08:00 05/18/24 08:33 Temperature 97.3 F L 97.2 F L Pulse Rate 81 72 Respiratory Rate 18 18 18 Blood Pressure 157/64 H 131/65 Pulse Oximetry 100 97 97 Oxygen Delivery Room Air 05/18/24 08:03 05/18/24 12:01 05/18/24 12:00 Temperature 98.3 F Pulse Rate 71 89 99 Respiratory Rate 17 Blood Pressure 160/77 H Pulse Oximetry 100 Oxygen Delivery Exam Const: General: comfortable and no acute distress Nutritional Appearance: average body habitus Orientation/consciousness: patient oriented x3 HENMT: Head: normocephalic and atraumatic Ears: hearing grossly normal bilaterally Mouth: Yes moist mucous membranes Eyes: General: appearance normal, both eyes and all related structures Pupils: Equal, round and reactive pupils present Neck: Neck: normal visual inspection and full ROM Resp: Effort & Inspection: no respiratory distress Auscultation: clear to auscultation bilaterally Cardio: Rate: regular rate Rhythm: regular rhythm GI: Inspection: non-distended and scar (large midline scar) GI Palp: Yes Soft to palpation (other than firmness in the LLQ and suprapubic area), Yes Tenderness to palpation present (GI) (mild LLQ and suprapubic tenderness), No Guarding due to palpation present (GI), Yes No hepatosplenomegaly present, No Hernia present and No Rebound tenderness present Percussion: Yes normal to percussion Auscultation: normal bowel sounds Rectal Exam: visual inspection normal (two hemorrhoidal skin tags noted, normal brown soft stool in depends), No Lesions present (GI) and No mass (no palpable mass or stricture on digital rectal exam ) Skin: General skin exam: normal color Neuro: General: other (paraplegic, able to move upper extremities) Speech: normal speech Extrem: General: no edema Psych: Mental Status: mental status grossly normal Attitude: cooperative Insight: Good insight present (Psych) Judgement: Good judgement present (Psych) Results Labs 05/18/24 10:54 05/18/24 10:54 Labs: Abnormal lab results 05/17/24 05/18/24 Range/Units 15:45 10:54 RBC 3.76 L (4.2-5.4) M/mm3 Hgb 11.5 L (12.0-15.0) g/dL Hct 35.0 L (37.0-47.0) % Chloride 109 H (98-107) mmol/L Carbon Dioxide 21 L (22-30) mmol/L Glucose 178 H (65-110) mg/dL Urine Appearance Cloudy H (Clear) Ur Blood (Man) 2+ H (Negative) Ur Leukocyte Esterase 2+ H (Negative) HANY/UL Urine RBC 51-100 H (0-2) /hpf Urine WBC 21-50 H (0-3) /hpf Urine Bacteria 4+ H /hpf Diabetes panel 05/18/24 Range/Units 10:54 Sodium 138 (137-145) mmol/L Potassium 3.8 (3.4-5.0) mmol/L Chloride 109 H (98-107) mmol/L Carbon Dioxide 21 L (22-30) mmol/L BUN 12 D (7-17) mg/dL Creatinine 0.70 (0.7-1.0) mg/dL Glucose 178 H (65-110) mg/dL Calcium 9.5 (8.4-10.2) mg/dL Calcium panel 05/18/24 Range/Units 10:54 Calcium 9.5 (8.4-10.2) mg/dL Pituitary panel 05/18/24 Range/Units 10:54 Sodium 138 (137-145) mmol/L Potassium 3.8 (3.4-5.0) mmol/L Chloride 109 H (98-107) mmol/L Carbon Dioxide 21 L (22-30) mmol/L BUN 12 D (7-17) mg/dL Creatinine 0.70 (0.7-1.0) mg/dL Glucose 178 H (65-110) mg/dL Calcium 9.5 (8.4-10.2) mg/dL Adrenal panel 05/18/24 Range/Units 10:54 Sodium 138 (137-145) mmol/L Potassium 3.8 (3.4-5.0) mmol/L Chloride 109 H (98-107) mmol/L Carbon Dioxide 21 L (22-30) mmol/L BUN 12 D (7-17) mg/dL Creatinine 0.70 (0.7-1.0) mg/dL Glucose 178 H (65-110) mg/dL Calcium 9.5 (8.4-10.2) mg/dL All other labs normal. Imaging Additional studies: ITS Impressions Abdomen X-Ray 05/18/24 09:33 IMPRESSION: 1. Nonobstructive bowel gas pattern. 2. Sclerosis of the coccyx, consistent with chronic osteomyelitis.
--- NOTE | 2024-05-18 18:22 | WPDGICN ---
Assessment and Plan Assessment and plan (1) Rectal stricture: Code(s): K62.4 - Stenosis of anus and rectum Status: Acute Assessment and Plan: The patient has a severe rectal stricture secondary to an old ischemic colitis. There is an urgent need to perform sequential dilations, starting with the lowest balloon diameter and advancing periodically every 3 weeks until reaching at least a diameter of 20 mm. She was explained that this is a chronic fibrotic process that might require several dilation sessions. Will start in 48 hours. GI Consult Note Consult date/time: 05/18/24 18:22 HPI: Jill Villa is a 44 year old female With a history of paraplegia secondary to a complication from a aortic aneurysm repair. In addition, the patient developed ischemic colitis and has as sequela of a low rectal stricture. In December this year, Dr. Saleh performed a balloon dilatation up to 13.5 mm, being able to pass a Colonoscopy proximally.. However, patient did not follow-up and since then she has been having difficulty defecating. Review of Systems Review of Systems: All systems reviewed & are unremarkable except as noted in HPI and below PMFSH Past Medical History Medical History Abnormality of rectum Aortic thrombus Clostridium difficile diarrhea Deep venous thrombosis Diabetic peripheral neuropathy Hyperlipidemia Intractable nausea and vomiting Ischemic colitis Neurogenic bladder Paraplegia Spinal cord stroke Type 1 diabetes mellitus Surgical History Surgical History History of aorto-femoral bypass [facility] History of partial amputation of toe 4th and 5th toe bilaterally Family History Family History Mother Acute myocardial infarction Diabetes mellitus Hypertension Father History of blood clots Social History Social History Social History: Surrogate medical decision maker: Ml Aguilar, mother. Code status: Full code. Smoking packs per day: 0.33 Smoking cigarettes per day: 6.6 Years smoked: 25 Smoking pack-years: 8.25 Smoking status: Current every day smoker Tobacco type: cigarettes Second hand tobacco smoke exposure: Yes Alcohol intake: former Substance use: current Substance use type: marijuana Other substance usage details: daily Do You Feel Safe in your Home?: Yes Lack of Transportation: No Lack of Food: Never True Current Housing: I Have Housing Concerned About Future Housing: No Difficulty Paying Gas/Electric Bills: No Difficulty Paying for Meds: No Currently Unemployed: No Education: Associate Degree Difficulty w/ Childcare or Family Care: No Additional living arrangements comments: Lives with spouse and children in [place]. Spiritual care concerns: Yes Meds Home Medications and Allergies Home Medications Medication Instructions Recorded Confirmed Type atorvastatin 20 mg tablet 20 mg PO HS 11/10/23 05/17/24 History trazodone 100 mg tablet 150 mg PO HS 11/10/23 05/17/24 History melatonin 10 mg tablet 10 mg PO HS 01/12/24 05/17/24 History aspirin 81 mg tablet 81 mg PO DAILY 02/10/24 05/17/24 History citalopram 20 mg tablet (Celexa) 20 mg PO QAM 03/23/24 05/17/24 History nortriptyline 10 mg capsule 10 mg PO HS #30 caps 03/25/24 05/17/24 Rx acidophilus 100 million 1 cap PO QAM 05/17/24 05/17/24 History cell-pectin, citrus 10 mg capsule cranberry 500 mg capsule 500 mg PO QAM 05/17/24 05/17/24 History oxycodone-acetaminophen 5 mg-325 1 tablet PO TID PRN Pain 05/17/24 05/17/24 History mg tablet Allergies Allergy/AdvReac Type Severity Reaction Status Date / Time azithromycin Allergy Unknown Hives Verified 05/17/24 03:37 amoxicillin AdvReac Unknown Verified 05/17/24 03:37 Vital Signs Vital Signs - 24 hr 05/17/24 20:00 05/17/24 21:59 05/17/24 20:00 Temperature 98.0 F 98.0 F Pulse Rate 89 89 89 Respiratory Rate 18 18 18 Blood Pressure 144/69 H 144/69 H Pulse Oximetry 100 100 100 Oxygen Delivery Room Air 05/17/24 20:00 05/18/24 00:00 05/18/24 00:00 Temperature 98.8 F Pulse Rate 88 88 78 Respiratory Rate 18 Blood Pressure 131/71 Pulse Oximetry 100 Oxygen Delivery 05/18/24 04:00 05/18/24 04:00 05/18/24 06:00 Temperature 97.7 F 97.3 F L Pulse Rate 70 77 81 Respiratory Rate 18 18 Blood Pressure 125/55 L 157/64 H Pulse Oximetry 100 100 Oxygen Delivery 05/18/24 08:00 05/18/24 08:33 05/18/24 08:03 Temperature 97.2 F L Pulse Rate 72 71 Respiratory Rate 18 18 Blood Pressure 131/65 Pulse Oximetry 97 97 Oxygen Delivery Room Air 05/18/24 12:01 05/18/24 12:00 05/18/24 16:03 Temperature 98.3 F Pulse Rate 89 99 92 Respiratory Rate 17 Blood Pressure 160/77 H Pulse Oximetry 100 Oxygen Delivery Exam Const: General: comfortable Neck: Neck: supple and no JVD Resp: Effort & Inspection: normal respiratory effort Cardio: Rate: regular rate Rhythm: regular rhythm GI: GI Palp: Yes Soft to palpation, No Tenderness to palpation present (GI) and No Guarding due to palpation present (GI) : Other: Digital rectal examination : marked stricture at approximately 6 cm above the anal verge. Unable to pass fintertip. Results Labs 05/18/24 10:54 05/18/24 10:54 Labs: Short CBC 05/18/24 Range/Units 10:54 WBC 6.2 (4.5-10.0) K/mm3 Hgb 11.5 L (12.0-15.0) g/dL Hct 35.0 L (37.0-47.0) % Plt Count 233 (150-375) k/mm3 [facility] 05/18/24 10:54 Sodium 138 Potassium 3.8 Chloride 109 H Carbon Dioxide 21 L BUN 12 D Creatinine 0.70 Glucose 178 H Calcium 9.5
[2024-05-18] MEDS: ATORVASTATIN 20 MG TABLET PO (21:14)
[2024-05-18] MEDS: traZODone HCL 50 MG TABLET 150 MG PO (21:15)
[2024-05-18] MEDS: NORTRIPTYLINE HCL 10 MG CAPSULE PO (21:15)
[2024-05-18] MEDS: MELATONIN 5 MG TABLET 10 MG PO (21:15)
[2024-05-18] MEDS: metroNIDAZOLE 70 GM VAG GEL.W.APPL 1 APPFUL VAGINAL (21:21)
[2024-05-19] VITALS (10 sets, daily range): BP systolic 98–154; BP diastolic 52–86; PULSE 66–80; RESP 16–20; TEMP 36.4–36.8; O2SAT 96–100
[2024-05-19] MEDS: MORPHINE SULFATE (*CRX) 4 MG/ML INJ IV PUSH ×6 (00:21→22:28)
[2024-05-19] MEDS: SODIUM CHLORIDE 0.9% IV 1,000 ML 75 ML IV CONT ×2 (00:25→17:24)
[2024-05-19] MEDS: KETOROLAC 15 MG/ML VIAL (*BKC) IV PUSH ×4 (01:00→17:35)
[2024-05-19] MEDS: MEROPENEM 1 GM/NS 100 ML 1 GM/100 ML BAG IVPB ×3 (02:59→17:24)
[2024-05-19] MEDS: LINACLOTIDE 72 MCG CAPSULE PO (05:59)
[2024-05-19] MEDS: CYCLOBENZAPRINE HCL 5 MG TABLET PO ×3 (05:59→22:27)
[2024-05-19 06:12] LABS: Hematocrit 33.5 % (37.0-47.0); Hemoglobin 10.8 g/dL (12.0-15.0); Mean Corpuscular HGB Conc 32.2 g/dl (32-36); Mean Corpuscular Hemoglobin 30.1 pg (26-34); Mean Corpuscular Volume 93.3 fl (80-100); Mean Platelet Volume 10.2 fl (7.4-10.4); Platelet Count Result 211 k/mm3 (150-375); Red Blood Count 3.59 M/mm3 (4.2-5.4); Red Cell Distribution Width 12.5 % (11.5-14.5)
[2024-05-19 06:23] LABS: Anion Gap 6 mmol/L (4-12); Blood Urea Nitrogen 10 mg/dL (7-17); Calcium 9.3 mg/dL (8.4-10.2); Carbon Dioxide 21 mmol/L (22-30); Chloride 110 mmol/L (98-107); Estimated CRCL calculation 127 ml/min; Estimated Glomerular Filt Rate > 60; Glucose 130 mg/dL (65-110); Potassium 3.8 mmol/L (3.4-5.0); Sodium 137 mmol/L (137-145)
[2024-05-19] MEDS: BISACODYL 10 MG SUPPOSITORY RECTAL (08:54)
[2024-05-19] MEDS: ENOXAPARIN 40 MG/0.4 ML SYRINGE SUB-Q (08:54)
[2024-05-19] MEDS: CITALOPRAM HYDROBROMIDE 20 MG TABLET PO (08:55)
[2024-05-19] MEDS: SENNA/DOCUSATE SODIUM TABLET 1 TAB PO ×2 (08:55→17:24)
[2024-05-19] MEDS: ASPIRIN 81 MG ENTERIC TABLET PO (08:55)
[2024-05-19] MEDS: polyethylene glycoL 3350 17 GM POWD.PACK PO (08:55)
--- NOTE | 2024-05-19 09:08 | PM.PNGS ---
Progress Note: A&P Assessment and Plan (1) Rectal stricture: Code(s): K62.4 - Stenosis of anus and rectum Status: Acute Assessment and Plan: exam benign, cont bowel regimen, appreciate GI input and plans for dilation tomorrow Subjective Subjective Date/Time Seen: 05/19/24 09:08 Interval history: feels better today, +bowel fxn c enema, nicci FLD Review of Systems Review of Systems: All systems reviewed & are unremarkable except as noted in HPI and below Exam Const: General: cooperative, comfortable and no acute distress Resp: Auscultation: clear to auscultation bilaterally Cardio: Rate: regular rate Rhythm: regular rhythm GI: Inspection: normal to inspection and non-distended GI Palp: No abdominal tenderness, Yes Soft to palpation, No Tenderness to palpation present (GI), No Guarding due to palpation present (GI) and No Rigid due to palpation Objective Data Vital Signs Vital Signs: Vital Signs - 24 hr 05/18/24 12:01 05/18/24 12:00 05/18/24 16:03 Temperature 36.8 C Pulse Rate 89 99 92 Respiratory Rate 17 Blood Pressure 160/77 H Pulse Oximetry 100 05/18/24 18:00 05/18/24 20:20 05/18/24 23:54 Temperature 37.3 C 36.6 C 36.8 C Pulse Rate 88 82 78 Respiratory Rate 19 18 18 Blood Pressure 169/86 H 164/74 H 131/72 Pulse Oximetry 97 100 99 05/18/24 20:00 05/19/24 00:00 05/19/24 04:56 Temperature 36.4 C L Pulse Rate 80 74 80 Respiratory Rate 20 Blood Pressure 139/86 Pulse Oximetry 100 05/19/24 04:00 Temperature Pulse Rate 72 Respiratory Rate Blood Pressure Pulse Oximetry Intake/Output Intake/Output: Intake & Output 05/16/24 05/17/24 05/18/24 05/19/24 23:59 23:59 23:59 23:59 Intake Total 2740.0 2801.0 811.2 Output Total 2200 1050 Balance 540.0 1751.0 811.2 Meds/Results Medications: Active Medications Generic Name Dose Route Start Last Admin Trade Name Freq PRN Reason Stop Dose Admin Acetaminophen 650 mg 05/17/24 03:11 Acetaminophen 325 Mg Tablet PO Q4H PRN Mild Pain (1-3) or Fever Hydrocodone Bitart/Acetaminophen 1 tab 05/17/24 17:50 Hydrocodone/Acetaminophen (*Crx) 10-325 Mg Tablet PO Q4H PRN Moderate Pain (4-6) Aspirin 81 mg 05/17/24 09:00 05/19/24 08:55 Aspirin 81 Mg Enteric Tablet PO 81 mg QAM SUSANNE Administration Atorvastatin Calcium 20 mg 05/17/24 21:00 05/18/24 21:14 Atorvastatin 20 Mg Tablet PO 20 mg HS SUSANNE Administration Bisacodyl 10 mg 05/18/24 13:20 05/19/24 08:54 Bisacodyl 10 Mg Suppository RECTAL 10 mg QAM SUSANNE Administration Citalopram Hydrobromide 20 mg 05/17/24 09:00 05/19/24 08:55 Citalopram Hydrobromide 20 Mg Tablet PO 20 mg QAM SUSANNE Administration Cyclobenzaprine HCl 5 mg 05/18/24 14:00 05/19/24 05:59 Cyclobenzaprine Hcl 5 Mg Tablet PO 5 mg Q8HR SUSANNE Administration Enoxaparin Sodium 40 mg 05/17/24 09:00 05/19/24 08:54 Enoxaparin 40 Mg/0.4 Ml Syringe SUB-Q 40 mg DAILY SUSANNE Administration Sodium Chloride 1,000 mls @ 75 mls/hr 05/17/24 03:10 05/19/24 00:25 Normal Saline Iv IV CONT 75 mls/hr .[id number] SUSANNE Administration Meropenem 1 gm in 100 mls @ 200 mls/hr 05/18/24 10:00 05/19/24 09:01 IVPB 100 mls/hr Q8H SUSANNE Administration Ketorolac Tromethamine 15 mg 05/18/24 12:35 05/19/24 05:59 Ketorolac 15 Mg/Ml Vial (*Bkc) IV PUSH 15 mg Q6H SUSANNE Administration Linaclotide 72 mcg 05/18/24 06:30 05/19/24 05:59 Linaclotide 72 Mcg Capsule PO 72 mcg DAILY@0630 SUSANNE Administration Melatonin 10 mg 05/17/24 21:00 05/18/24 21:15 Melatonin 5 Mg Tablet PO 10 mg HS SUSANNE Administration Metronidazole 1 appful 05/18/24 21:00 05/18/24 21:21 Metronidazole 70 Gm Vag Gel.W.Appl VAGINAL 05/24/24 21:00 1 appful HS SUSANNE Administration Morphine Sulfate 4 mg 05/17/24 03:09 05/19/24 09:00 Morphine Sulfate (*Crx) 4 Mg/Ml Inj IV PUSH 4 mg Q4H PRN Administration Pain Rated 7-10 Nortriptyline HCl 10 mg 05/17/24 21:00 05/18/24 21:15 Nortriptyline Hcl 10 Mg Capsule PO 10 mg HS SUSANNE Administration Polyethylene Glycol 17 gm 05/18/24 07:30 05/19/24 08:55 Polyethylene Glycol 3350 17 Gm Powd.Pack PO 17 gm QAM SUSANNE Administration Polyethylene Glycol 119 gm 05/19/24 22:00 Polyethylene Glycol 3350 238 Gm Bottle PO 05/19/24 22:01 ONCE ONE Polyethylene Glycol 119 gm 05/20/24 05:00 Polyethylene Glycol 3350 238 Gm Bottle PO 05/20/24 05:01 ONCE ONE Senna/Docusate Sodium 1 tab 05/17/24 09:00 05/19/24 08:55 Senna/Docusate Sodium Tablet PO 1 tab BID SUSANNE Administration Trazodone HCl 150 mg 05/17/24 21:00 05/18/24 21:15 Trazodone Hcl 50 Mg Tablet PO 150 mg HS SUSANNE Administration Radiology Results: ITS Impressions Abdomen X-Ray 05/18/24 09:33 IMPRESSION: 1. Nonobstructive bowel gas pattern. 2. Sclerosis of the coccyx, consistent with chronic osteomyelitis. Labs Labs: Laboratory Results - last 24 hr 05/18/24 05/19/24 10:54 05:44 WBC 6.2 5.0 RBC 3.76 L 3.59 L Hgb 11.5 L 10.8 L Hct 35.0 L 33.5 L MCV 93.1 93.3 MCH 30.6 30.1 MCHC 32.9 32.2 RDW 13.0 12.5 Plt Count 233 211 MPV 10.0 10.2 Sodium 138 137 Potassium 3.8 3.8 Chloride 109 H 110 H Carbon Dioxide 21 L 21 L Anion Gap 8 6 BUN 12 D 10 Creatinine 0.70 0.60 L Estim Creat Clear Calc 111 127 Estimated GFR > 60 > 60 Glucose 178 H 130 H Calcium 9.5 9.3
--- NOTE | 2024-05-19 11:33 | PC.NURSE ---
On 05/19/24, the student, [Ady Mendieta], provided care and completed [facility] documentation on this patient. I have reviewed the student's documentation and agree with the findings.
--- NOTE | 2024-05-19 12:46 | P.PNIM_ITS ---
Progress Note: A&P Assessment and Plan (1) Rectal stricture: Code(s): K62.4 - Stenosis of anus and rectum Status: Acute Assessment and Plan: Patient to undergo dilation by GI on 05/20/24 Bowel prep in process. (2) Constipation: Code(s): K59.00 - Constipation, unspecified Status: Inactive Assessment and Plan: Bowel prep in process. 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 No RUQ abdomen (4) UTI (urinary tract infection): Code(s): N39.0 - Urinary tract infection, site not specified Status: Acute Assessment and Plan: history of ESBL on meropenem Time Spent With Patient Time with patient: 25 - 35 minutes Subjective Date/time seen: 05/19/24 12:46 Interval history: Patient undergoing bowel prep in anticipation of rectal dilation tomorrow by Gastroenterology. No significant concerns at this time. Patient requesting a letter that her daughter can take to her hospital cleaning specialist. This was printed on letterhead and a release of information was signed. Review of Systems Review of Systems: 12 systems were reviewed and are negative except for as per HPI. All systems reviewed & are unremarkable except as noted in HPI and below Exam Narrative: General: well appearing, appears stated age. HEENT: normocephalic, atraumatic. Mucous membranes moist. EOMI, PERRLA, bilateral sclera anicteric, no conjunctival injection. Neck supple without JVD, lymphadenopathy, or bruit. Respiratory: clear to auscultation bilaterally. No rales/rhonchi/wheezes. Cardiovascular: Regular rate and rhythm, normal S1-S2 upon auscultation. No murmurs, rubs, or clicks. PMI is nondisplaced, capillary refill less than 3 second. Abdomen: Soft, round, no pulsatile masses, nondistended and nontender. No rebound, no guarding. No CVA tenderness, no hepatosplenomegaly. Bowel sounds present to all four quadrants. Extremities: No cyanosis, clubbing, or edema present. Pulses are palpable 2/2. Active ROM to upper extremities. Neuro: Alert and orientated x 4. PERRLA. Skin: Warm, dry, and intact, without rash, erythema, or lesion. Psych: pleasant, cooperative, normal speech, normal affect, no hallucinations, no dysarthria Objective Data Vital Signs Vital Signs: Vital Signs - 24 hr 05/18/24 16:03 05/18/24 18:00 05/18/24 20:20 Temperature 37.3 C 36.6 C Pulse Rate 92 88 82 Respiratory Rate 19 18 Blood Pressure 169/86 H 164/74 H Pulse Oximetry 97 100 05/18/24 23:54 05/18/24 20:00 05/19/24 00:00 Temperature 36.8 C Pulse Rate 78 80 74 Respiratory Rate 18 Blood Pressure 131/72 Pulse Oximetry 99 05/19/24 04:56 05/19/24 04:00 05/19/24 09:54 Temperature 36.4 C L 36.6 C Pulse Rate 80 72 77 Respiratory Rate 20 18 Blood Pressure 139/86 121/62 Pulse Oximetry 100 100 Intake/Output Intake/Output: Intake & Output 05/16/24 05/17/24 05/18/24 05/19/24 23:59 23:59 23:59 23:59 Intake Total 2740.0 2801.0 931.2 Output Total 2200 1050 800 Balance 540.0 1751.0 131.2 Meds/Results Medications: Active Medications Generic Name Dose Route Start Last Admin Trade Name Freq PRN Reason Stop Dose Admin Acetaminophen 650 mg 05/17/24 03:11 Acetaminophen 325 Mg Tablet PO Q4H PRN Mild Pain (1-3) or Fever Hydrocodone Bitart/Acetaminophen 1 tab 05/17/24 17:50 Hydrocodone/Acetaminophen (*Crx) 10-325 Mg Tablet PO Q4H PRN Moderate Pain (4-6) Aspirin 81 mg 05/17/24 09:00 05/19/24 08:55 Aspirin 81 Mg Enteric Tablet PO 81 mg QAM SUSANNE Administration Atorvastatin Calcium 20 mg 05/17/24 21:00 05/18/24 21:14 Atorvastatin 20 Mg Tablet PO 20 mg HS SUSANNE Administration Bisacodyl 10 mg 05/18/24 13:20 05/19/24 08:54 Bisacodyl 10 Mg Suppository RECTAL 10 mg QAM SUSANNE Administration Citalopram Hydrobromide 20 mg 05/17/24 09:00 05/19/24 08:55 Citalopram Hydrobromide 20 Mg Tablet PO 20 mg QAM SUSANNE Administration Cyclobenzaprine HCl 5 mg 05/18/24 14:00 05/19/24 05:59 Cyclobenzaprine Hcl 5 Mg Tablet PO 5 mg Q8HR SUSANNE Administration Enoxaparin Sodium 40 mg 05/17/24 09:00 05/19/24 08:54 Enoxaparin 40 Mg/0.4 Ml Syringe SUB-Q 40 mg DAILY SUSANNE Administration Sodium Chloride 1,000 mls @ 75 mls/hr 05/17/24 03:10 05/19/24 00:25 Normal Saline Iv IV CONT 75 mls/hr .[id number] SUSANNE Administration Meropenem 1 gm in 100 mls @ 200 mls/hr 05/18/24 10:00 05/19/24 09:01 IVPB 100 mls/hr Q8H SUSANNE Administration Ketorolac Tromethamine 15 mg 05/18/24 12:35 05/19/24 12:00 Ketorolac 15 Mg/Ml Vial (*Bkc) IV PUSH 15 mg Q6H SUSANNE Administration Linaclotide 72 mcg 05/18/24 06:30 05/19/24 05:59 Linaclotide 72 Mcg Capsule PO 72 mcg DAILY@0630 SUSANNE Administration Melatonin 10 mg 05/17/24 21:00 05/18/24 21:15 Melatonin 5 Mg Tablet PO 10 mg HS SUSANNE Administration Metronidazole 1 appful 05/18/24 21:00 05/18/24 21:21 Metronidazole 70 Gm Vag Gel.W.Appl VAGINAL 05/24/24 21:00 1 appful HS SUSANNE Administration Morphine Sulfate 4 mg 05/17/24 03:09 05/19/24 09:00 Morphine Sulfate (*Crx) 4 Mg/Ml Inj IV PUSH 4 mg Q4H PRN Administration Pain Rated 7-10 Nortriptyline HCl 10 mg 05/17/24 21:00 05/18/24 21:15 Nortriptyline Hcl 10 Mg Capsule PO 10 mg HS SUSANNE Administration Polyethylene Glycol 17 gm 05/18/24 07:30 05/19/24 08:55 Polyethylene Glycol 3350 17 Gm Powd.Pack PO 17 gm QAM SUSANNE Administration Polyethylene Glycol 119 gm 05/19/24 22:00 Polyethylene Glycol 3350 238 Gm Bottle PO 05/19/24 22:01 ONCE ONE Polyethylene Glycol 119 gm 12/04/24 05:00 Polyethylene Glycol 3350 238 Gm Bottle PO 05/20/24 05:01 ONCE ONE Senna/Docusate Sodium 1 tab 05/17/24 09:00 05/19/24 08:55 Senna/Docusate Sodium Tablet PO 1 tab BID SUSANNE Administration Trazodone HCl 150 mg 05/17/24 21:00 05/18/24 21:15 Trazodone Hcl 50 Mg Tablet PO 150 mg HS SUSANNE Administration Radiology Results: ITS Impressions Abdomen X-Ray 05/18/24 09:33 IMPRESSION: 1. Nonobstructive bowel gas pattern. 2. Sclerosis of the coccyx, consistent with chronic osteomyelitis. Labs Labs: Laboratory Results - last 24 hr 05/19/24 05:44 WBC 5.0 RBC 3.59 L Hgb 10.8 L Hct 33.5 L MCV 93.3 MCH 30.1 MCHC 32.2 RDW 12.5 Plt Count 211 MPV 10.2 Sodium 137 Potassium 3.8 Chloride 110 H Carbon Dioxide 21 L Anion Gap 6 BUN 10 Creatinine 0.60 L Estim Creat Clear Calc 127 Estimated GFR > 60 Glucose 130 H Calcium 9.3 Pulse Oximetry SpO2 results: 99-100% on room air Interpretation: No need for supplemental oxygenation at this time Quality VTE Prophylaxis VTE prophylaxis: mechanical ordered and pharmacologic ordered Hospitalist MIPS Advance Care Plan I have confirmed that the patient's Advanced Care Plan is present, code status is documented, or surrogate decision maker is listed in patient medical record.: Yes Medication Reconciliation I have utilized all available resources to obtain, update and review the patients current medications (includes all prescriptions, OTC, herbals, cannabis, and nutritional supplements).: Yes
--- NOTE | 2024-05-19 17:34 | WPDGIPROGNO ---
Progress Note: A&P Assessment and Plan (1) Rectal stricture: Code(s): K62.4 - Stenosis of anus and rectum Status: Acute Assessment and Plan: Pt with post ischemic low rectal stenosis. Will perform proctoscopy with thin scope and dilate with balloon 6-9 mm trying to achieve goal of 9 mm. Patient aware of the fact that this is a chronic process which will need several sessions to achieve the desired rectal diameter. Time Spent With Patient Time with patient: less than 15 minutes Subjective Date/time seen: 05/19/24 17:34 Interval history: No new symptoms. Being prepped for sigmoidoscopy and dilatation tomorrow afternoon. C difficile positive, not receiving treatment. Review of Systems Review of Systems: All systems reviewed & are unremarkable except as noted in HPI and below Exam Narrative: Unchanged from previous, rectal examination already done yesterday. Objective Data Vital Signs Vital Signs: Vital Signs - 24 hr 05/18/24 18:00 05/18/24 20:20 05/18/24 23:54 Temperature 99.2 F 98 F 98.2 F Pulse Rate 88 82 78 Respiratory Rate 19 18 18 Blood Pressure 169/86 H 164/74 H 131/72 Pulse Oximetry 97 100 99 05/18/24 20:00 05/19/24 00:00 05/19/24 04:56 Temperature 97.5 F L Pulse Rate 80 74 80 Respiratory Rate 20 Blood Pressure 139/86 Pulse Oximetry 100 05/19/24 04:00 05/19/24 09:54 05/19/24 14:00 Temperature 97.8 F 97.6 F Pulse Rate 72 77 77 Respiratory Rate 18 18 Blood Pressure 121/62 154/63 H Pulse Oximetry 100 100 05/19/24 08:04 05/19/24 12:00 Temperature Pulse Rate 79 79 Respiratory Rate Blood Pressure Pulse Oximetry Intake/Output Intake/Output: Intake & Output 05/16/24 05/17/24 05/18/24 05/19/24 23:59 23:59 23:59 23:59 Intake Total 2740.0 2801.0 2431.2 Output Total 2200 1050 1700 Balance 540.0 1751.0 731.2 Meds/Results Medications: Active Medications Generic Name Dose Route Start Last Admin Trade Name Freq PRN Reason Stop Dose Admin Acetaminophen 650 mg 05/17/24 03:11 Acetaminophen 325 Mg Tablet PO Q4H PRN Mild Pain (1-3) or Fever Hydrocodone Bitart/Acetaminophen 1 tab 05/17/24 17:50 Hydrocodone/Acetaminophen (*Crx) 10-325 Mg Tablet PO Q4H PRN Moderate Pain (4-6) Aspirin 81 mg 05/17/24 09:00 05/19/24 08:55 Aspirin 81 Mg Enteric Tablet PO 81 mg QAM SUSANNE Administration Atorvastatin Calcium 20 mg 05/17/24 21:00 05/18/24 21:14 Atorvastatin 20 Mg Tablet PO 20 mg HS SUSANNE Administration Bisacodyl 10 mg 05/18/24 13:20 05/19/24 08:54 Bisacodyl 10 Mg Suppository RECTAL 10 mg QAM SUSANNE Administration Citalopram Hydrobromide 20 mg 05/17/24 09:00 05/19/24 08:55 Citalopram Hydrobromide 20 Mg Tablet PO 20 mg QAM SUSANNE Administration Cyclobenzaprine HCl 5 mg 05/18/24 14:00 05/19/24 13:29 Cyclobenzaprine Hcl 5 Mg Tablet PO 5 mg Q8HR SUSANNE Administration Enoxaparin Sodium 40 mg 05/17/24 09:00 05/19/24 08:54 Enoxaparin 40 Mg/0.4 Ml Syringe SUB-Q 40 mg DAILY SUSANNE Administration Sodium Chloride 1,000 mls @ 75 mls/hr 05/17/24 03:10 05/19/24 17:24 Normal Saline Iv IV CONT 75 mls/hr .[id number] SUSANNE Administration Meropenem 1 gm in 100 mls @ 200 mls/hr 05/18/24 10:00 05/19/24 17:24 IVPB 100 mls/hr Q8H SUSANNE Administration Ketorolac Tromethamine 15 mg 05/18/24 12:35 05/19/24 12:00 Ketorolac 15 Mg/Ml Vial (*Bkc) IV PUSH 15 mg Q6H SUSANNE Administration Linaclotide 72 mcg 05/18/24 06:30 05/19/24 05:59 Linaclotide 72 Mcg Capsule PO 72 mcg DAILY@0630 SUSANNE Administration Melatonin 10 mg 05/17/24 21:00 05/18/24 21:15 Melatonin 5 Mg Tablet PO 10 mg HS SUSANNE Administration Metronidazole 1 appful 05/18/24 21:00 05/18/24 21:21 Metronidazole 70 Gm Vag Gel.W.Appl VAGINAL 05/24/24 21:00 1 appful HS SUSANNE Administration Morphine Sulfate 4 mg 05/17/24 03:09 05/19/24 17:29 Morphine Sulfate (*Crx) 4 Mg/Ml Inj IV PUSH 4 mg Q4H PRN Administration Pain Rated 7-10 Nortriptyline HCl 10 mg 05/17/24 21:00 05/18/24 21:15 Nortriptyline Hcl 10 Mg Capsule PO 10 mg HS SUSANNE Administration Polyethylene Glycol 17 gm 05/18/24 07:30 05/19/24 08:55 Polyethylene Glycol 3350 17 Gm Powd.Pack PO 17 gm QAM SUSANNE Administration Polyethylene Glycol 119 gm 05/19/24 22:00 Polyethylene Glycol 3350 238 Gm Bottle PO 05/19/24 22:01 ONCE ONE Polyethylene Glycol 119 gm 05/20/24 05:00 Polyethylene Glycol 3350 238 Gm Bottle PO 05/20/24 05:01 ONCE ONE Senna/Docusate Sodium 1 tab 05/17/24 09:00 05/19/24 17:24 Senna/Docusate Sodium Tablet PO 1 tab BID SUSANNE Administration Trazodone HCl 150 mg 05/17/24 21:00 05/18/24 21:15 Trazodone Hcl 50 Mg Tablet PO 150 mg HS SUSANNE Administration Radiology Results: ITS Impressions Abdomen X-Ray 05/18/24 09:33 IMPRESSION: 1. Nonobstructive bowel gas pattern. 2. Sclerosis of the coccyx, consistent with chronic osteomyelitis. Labs Labs: Laboratory Results - last 24 hr 05/19/24 05:44 WBC 5.0 RBC 3.59 L Hgb 10.8 L Hct 33.5 L MCV 93.3 MCH 30.1 MCHC 32.2 RDW 12.5 Plt Count 211 MPV 10.2 Sodium 137 Potassium 3.8 Chloride 110 H Carbon Dioxide 21 L Anion Gap 6 BUN 10 Creatinine 0.60 L Estim Creat Clear Calc 127 Estimated GFR > 60 Glucose 130 H Calcium 9.3
[2024-05-19] MEDS: polyethylene glycoL 3350 238 GM BOTTLE 119 GM PO (22:01)
[2024-05-19] MEDS: traZODone HCL 50 MG TABLET 150 MG PO (22:27)
[2024-05-19] MEDS: NORTRIPTYLINE HCL 10 MG CAPSULE PO (22:27)
[2024-05-19] MEDS: ATORVASTATIN 20 MG TABLET PO (22:27)
[2024-05-19] MEDS: MELATONIN 5 MG TABLET 10 MG PO (22:27)
[2024-05-20] VITALS (8 sets, daily range): BP systolic 96–145; BP diastolic 45–87; PULSE 68–91; RESP 12–20; TEMP 36.2–36.7; O2SAT 97–100
[2024-05-20] MEDS: MEROPENEM 1 GM/NS 100 ML 1 GM/100 ML BAG IVPB ×3 (01:32→17:36)
[2024-05-20] MEDS: KETOROLAC 15 MG/ML VIAL (*BKC) IV PUSH ×4 (01:32→17:35)
[2024-05-20] MEDS: polyethylene glycoL 3350 238 GM BOTTLE 119 GM PO (05:47)
[2024-05-20] MEDS: LINACLOTIDE 72 MCG CAPSULE PO (05:47)
[2024-05-20] MEDS: CYCLOBENZAPRINE HCL 5 MG TABLET PO ×2 (05:47→15:09)
[2024-05-20] MEDS: SODIUM CHLORIDE 0.9% IV 1,000 ML 75 ML IV CONT (05:53)
[2024-05-20] MEDS: MORPHINE SULFATE (*CRX) 4 MG/ML INJ IV PUSH ×2 (09:37→15:08)
--- NOTE | 2024-05-20 10:08 | P.PNIM_ITS ---
Progress Note: A&P Assessment and Plan (1) Rectal stricture: Code(s): K62.4 - Stenosis of anus and rectum Status: Acute Assessment and Plan: * Patient to undergo dilation by GI on 05/20/24 * Bowel prep in process. (2) Constipation: Code(s): K59.00 - Constipation, unspecified Status: Inactive Assessment and Plan: * Bowel prep in process. Constipation related to rectal stricture, unable to pass adequate stool * Undergoing rectal dilation today by Gastroenterology. 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 No RUQ abdomen (4) UTI (urinary tract infection): Code(s): N39.0 - Urinary tract infection, site not specified Status: Acute Assessment and Plan: * history of ESBL * Meropenem 1 gram IVPB q 8. Subjective Date/time seen: 05/20/24 10:08 Interval history: Patient undergoing bowel prep for rectal dilation today by Gastroenterology. Patient reports pain in bilateral legs is an 8 , constant, and aching. Family at bedside. Patient denies shortness of breath, headache, dizziness, nausea, or vomiting. Review of Systems Review of Systems: All systems reviewed & are unremarkable except as noted in HPI and below Exam Const: General: no acute distress and uncomfortable Eyes: Sclera: sclerae normal Resp: Effort & Inspection: normal respiratory effort Auscultation: clear to auscultation bilaterally Cardio: Rate: regular rate Rhythm: regular rhythm GI: GI Palp: Yes Soft to palpation Auscultation: normal bowel sounds Skin: General skin exam: no rashes or lesions noted Neuro: Speech: normal speech Extrem: General: normal to inspection Psych: Affect: normal affect Objective Data Vital Signs Vital Signs: Vital Signs - 24 hr 05/19/24 14:00 05/19/24 12:00 05/19/24 18:00 Temperature 97.6 F 98.2 F Pulse Rate 77 79 75 Respiratory Rate 18 16 Blood Pressure 154/63 H 137/59 L Pulse Oximetry 100 100 05/19/24 20:05 05/19/24 23:37 05/20/24 03:17 Temperature 97.7 F 97.6 F 97.1 F L Pulse Rate 66 67 68 Respiratory Rate 16 16 16 Blood Pressure 132/60 98/52 L 96/58 L Pulse Oximetry 97 96 97 Intake/Output Intake/Output: Intake & Output 05/17/24 05/18/24 05/19/24 05/20/24 23:59 23:59 23:59 23:59 Intake Total 2740.0 2801.0 2901.2 1858.2 Output Total 2200 1050 2400 800 Balance 540.0 1751.0 501.2 1058.2 Meds/Results Medications: Active Medications Generic Name Dose Route Start Last Admin Trade Name Freq PRN Reason Stop Dose Admin Acetaminophen 650 mg 05/17/24 03:11 Acetaminophen 325 Mg Tablet PO Q4H PRN Mild Pain (1-3) or Fever Hydrocodone Bitart/Acetaminophen 1 tab 05/17/24 17:50 Hydrocodone/Acetaminophen (*Crx) 10-325 Mg Tablet PO Q4H PRN Moderate Pain (4-6) Aspirin 81 mg 05/17/24 09:00 05/20/24 09:48 Aspirin 81 Mg Enteric Tablet PO Not Given QAM SUSANNE Atorvastatin Calcium 20 mg 05/17/24 21:00 05/19/24 22:27 Atorvastatin 20 Mg Tablet PO 20 mg HS SUSANNE Administration Bisacodyl 10 mg 05/18/24 13:20 05/20/24 09:48 Bisacodyl 10 Mg Suppository RECTAL Not Given QAM SUS[facility]NE Citalopram Hydrobromide 20 mg 05/17/24 09:00 05/20/24 09:49 Citalopram Hydrobromide 20 Mg Tablet PO Not Given QAM [facility] Cyclobenzaprine HCl 5 mg 05/18/24 14:00 05/20/24 05:47 Cyclobenzaprine Hcl 5 Mg Tablet PO 5 mg Q8HR SUS[facility]NE Administration Enoxaparin Sodium 40 mg 05/17/24 09:00 05/20/24 09:49 Enoxaparin 40 Mg/0.4 Ml Syringe SUB-Q Not Given DAILY S[facility]NE Sodium Chloride 1,000 mls @ 75 mls/hr 05/17/24 03:10 05/20/24 05:53 Normal Saline Iv IV CONT 75 mls/hr .[id number] [facility] Administration Meropenem 1 gm in 100 mls @ 200 mls/hr 05/18/24 10:00 05/20/24 02:02 IVPB Infused Q8H [facility] Infusion Ketorolac Tromethamine 15 mg 05/18/24 12:35 05/20/24 05:47 Ketorolac 15 Mg/Ml Vial (*Bkc) IV PUSH 15 mg Q6H [facility]NE Administration Linaclotide 72 mcg 05/18/24 06:30 05/20/24 05:47 Linaclotide 72 Mcg Capsule PO 72 mcg DAILY@0630 S[facility]NE Administration Melatonin 10 mg 05/17/24 21:00 05/19/24 22:27 Melatonin 5 Mg Tablet PO 10 mg HS [facility]NE Administration Metronidazole 1 appful 05/18/24 21:00 05/19/24 22:27 Metronidazole 70 Gm Vag Gel.W.Appl VAGINAL 05/24/24 21:00 Not Given HS [facility] Morphine Sulfate 4 mg 05/17/24 03:09 05/20/24 09:37 Morphine Sulfate (*Crx) 4 Mg/Ml Inj IV PUSH 4 mg Q4H PRN Administration Pain Rated 7-10 Nortriptyline HCl 10 mg 05/17/24 21:00 05/19/24 22:27 Nortriptyline Hcl 10 Mg Capsule PO 10 mg HS [facility] Administration Polyethylene Glycol 17 gm 05/18/24 07:30 05/20/24 09:49 Polyethylene Glycol 3350 17 Gm Powd.Pack PO Not Given QAM [facility] Senna/Docusate Sodium 1 tab 05/17/24 09:00 05/20/24 09:49 Senna/Docusate Sodium Tablet PO Not Given BID SUS[facility]NE Trazodone HCl 150 mg 05/17/24 21:00 05/19/24 22:27 Trazodone Hcl 50 Mg Tablet PO 150 mg HS [facility] Administration Radiology Results: ITS Impressions Abdomen X-Ray 05/18/24 09:33 IMPRESSION: 1. Nonobstructive bowel gas pattern. 2. Sclerosis of the coccyx, consistent with chronic osteomyelitis. Quality VTE Prophylaxis VTE prophylaxis: mechanical ordered and pharmacologic ordered
--- NOTE | 2024-05-20 10:34 | P.PNGS_ITS ---
Progress Note: A&P Assessment and Plan (1) Large bowel obstruction: Code(s): K56.609 - Unspecified intestinal obstruction, unspecified as to partial versus complete obstruction Status: Acute Assessment and Plan: exam benign, +bowel fxn c enemas, etc, GI planning to do dilation today, no acute surgical issues, will s/o, call c?s, issues Subjective Subjective Date/Time Seen: 05/20/24 10:34 Interval history: feels good, no abd pain, multiple BMs, nicci diet Review of Systems Review of Systems: All systems reviewed & are unremarkable except as noted in HPI and below Exam Const: General: cooperative, comfortable and no acute distress Resp: Auscultation: clear to auscultation bilaterally Cardio: Rate: regular rate Rhythm: regular rhythm GI: Inspection: normal to inspection and distended GI Palp: No abdominal tenderness and Yes Soft to palpation Objective Data Vital Signs Vital Signs: Vital Signs - 24 hr 05/19/24 14:00 05/19/24 12:00 05/19/24 18:00 Temperature 36.4 C 36.8 C Pulse Rate 77 79 75 Respiratory Rate 18 16 Blood Pressure 154/63 H 137/59 L Pulse Oximetry 100 100 05/19/24 20:05 05/19/24 23:37 05/20/24 03:17 Temperature 36.5 C 36.4 C 36.2 C L Pulse Rate 66 67 68 Respiratory Rate 16 16 16 Blood Pressure 132/60 98/52 L 96/58 L Pulse Oximetry 97 96 97 Intake/Output Intake/Output: Intake & Output 05/17/24 05/18/24 05/19/24 05/20/24 23:59 23:59 23:59 23:59 Intake Total 2740.0 2801.0 2901.2 1858.2 Output Total 2200 1050 2400 800 Balance 540.0 1751.0 501.2 1058.2 Meds/Results Medications: Active Medications Generic Name Dose Route Start Last Admin Trade Name Freq PRN Reason Stop Dose Admin Acetaminophen 650 mg 05/17/24 03:11 Acetaminophen 325 Mg Tablet PO Q4H PRN Mild Pain (1-3) or Fever Hydrocodone Bitart/Acetaminophen 1 tab 05/17/24 17:50 Hydrocodone/Acetaminophen (*Crx) 10-325 Mg Tablet PO Q4H PRN Moderate Pain (4-6) Aspirin 81 mg 05/17/24 09:00 05/20/24 09:48 Aspirin 81 Mg Enteric Tablet PO Not Given QAM [facility] Atorvastatin Calcium 20 mg 05/17/24 21:00 05/19/24 22:27 Atorvastatin 20 Mg Tablet PO 20 mg HS [facility] Administration Bisacodyl 10 mg 05/18/24 13:20 05/20/24 09:48 Bisacodyl 10 Mg Suppository RECTAL Not Given QAM [facility] Citalopram Hydrobromide 20 mg 05/17/24 09:00 05/20/24 09:49 Citalopram Hydrobromide 20 Mg Tablet PO Not Given QAM [facility] Cyclobenzaprine HCl 5 mg 05/18/24 14:00 05/20/24 05:47 Cyclobenzaprine Hcl 5 Mg Tablet PO 5 mg Q8HR [facility] Administration Enoxaparin Sodium 40 mg 05/17/24 09:00 05/20/24 09:49 Enoxaparin 40 Mg/0.4 Ml Syringe SUB-Q Not Given DAILY [facility] Sodium Chloride 1,000 mls @ 75 mls/hr 05/17/24 03:10 05/20/24 05:53 Normal Saline Iv IV CONT 75 mls/hr .[id number] [facility] Administration Meropenem 1 gm in 100 mls @ 200 mls/hr 05/18/24 10:00 05/20/24 02:02 IVPB Infused Q8H [facility] Infusion Ketorolac Tromethamine 15 mg 05/18/24 12:35 05/20/24 05:47 Ketorolac 15 Mg/Ml Vial (*Bkc) IV PUSH 15 mg Q6H [facility] Administration Linaclotide 72 mcg 05/18/24 06:30 05/20/24 05:47 Linaclotide 72 Mcg Capsule PO 72 mcg DAILY@0630 [facility] Administration Melatonin 10 mg 05/17/24 21:00 05/19/24 22:27 Melatonin 5 Mg Tablet PO 10 mg HS [facility] Administration Metronidazole 1 appful 05/18/24 21:00 05/19/24 22:27 Metronidazole 70 Gm Vag Gel.W.Appl VAGINAL 05/24/24 21:00 Not Given HS [facility] Morphine Sulfate 4 mg 05/17/24 03:09 05/20/24 09:37 Morphine Sulfate (*Crx) 4 Mg/Ml Inj IV PUSH 4 mg Q4H PRN Administration Pain Rated 7-10 Nortriptyline HCl 10 mg 05/17/24 21:00 05/19/24 22:27 Nortriptyline Hcl 10 Mg Capsule PO 10 mg HS [facility] Administration Polyethylene Glycol 17 gm 05/18/24 07:30 05/20/24 09:49 Polyethylene Glycol 3350 17 Gm Powd.Pack PO Not Given QAM [facility] Senna/Docusate Sodium 1 tab 05/17/24 09:00 05/20/24 09:49 Senna/Docusate Sodium Tablet PO Not Given BID [facility]NE Trazodone HCl 150 mg 05/17/24 21:00 05/19/24 22:27 Trazodone Hcl 50 Mg Tablet PO 150 mg HS [facility]NE Administration Radiology Results: ITS Impressions Abdomen X-Ray 05/18/24 09:33 IMPRESSION: 1. Nonobstructive bowel gas pattern. 2. Sclerosis of the coccyx, consistent with chronic osteomyelitis.
--- NOTE | 2024-05-20 13:15 | WPDANESEPPF ---
Anes - Initial Pre Proc Eval Procedure: Operation Date: 05/20/24 15:00 Proposed Procedures p Flexible Sigmoidoscopy with rectal dilitation - Benny Oviedo MD Date/Time: 05/20/24 13:15 Surgeon: Natty Sotomayor DO Pre Op Diagnosis: Colitis, possible SBO Patient Data Age: 44 Gender: F Height: 1.88 m Weight: 89.9 kg Last Vital Signs Temp 36.2 C L 05/20/24 03:17 Pulse 72 05/20/24 10:00 Resp 12 05/20/24 10:00 BP 131/68 05/20/24 10:00 Pulse Ox 100 05/20/24 10:00 O2 Del Method Room Air 05/18/24 08:33 Allergies Allergy/AdvReac Type Severity Reaction Status Date / Time azithromycin Allergy Unknown Hives Verified 05/17/24 03:37 amoxicillin AdvReac Unknown Verified 05/17/24 03:37 Home Medications Medication Instructions Recorded Confirmed Type atorvastatin 20 mg tablet 20 mg PO HS 11/10/23 05/17/24 History trazodone 100 mg tablet 150 mg PO HS 11/10/23 05/17/24 History melatonin 10 mg tablet 10 mg PO HS 01/12/24 05/17/24 History aspirin 81 mg tablet 81 mg PO DAILY 02/10/24 05/17/24 History citalopram 20 mg tablet (Celexa) 20 mg PO QAM 03/23/24 05/17/24 History nortriptyline 10 mg capsule 10 mg PO HS #30 caps 03/25/24 05/17/24 Rx acidophilus 100 million 1 cap PO QAM 05/17/24 05/17/24 History cell-pectin, citrus 10 mg capsule cranberry 500 mg capsule 500 mg PO QAM 05/17/24 05/17/24 History oxycodone-acetaminophen 5 mg-325 1 tablet PO TID PRN Pain 05/17/24 05/17/24 History mg tablet Patient hx anesthesia problems: none Family hx anesthesia problems: none Results Review: All pre-operative results and documents have been reviewed as part of the pre-operative evaluation. COUNTS INCLUDE 234 BEDS AT THE [facility] Past Medical History Medical History Abnormality of rectum Aortic thrombus Clostridium difficile diarrhea Deep venous thrombosis Diabetic peripheral neuropathy Hyperlipidemia Intractable nausea and vomiting Ischemic colitis Neurogenic bladder Paraplegia Spinal cord stroke Type 1 diabetes mellitus Surgical History Surgical History History of aorto-femoral bypass [facility] History of partial amputation of toe 4th and 5th toe bilaterally Family History Family History Mother Acute myocardial infarction Diabetes mellitus Hypertension Father History of blood clots Social History Social History Social History: Surrogate medical decision maker: Ml Aguilar, mother. Code status: Full code. Smoking packs per day: 0.33 Smoking cigarettes per day: 6.6 Years smoked: 25 Smoking pack-years: 8.25 Smoking status: Current every day smoker Tobacco type: cigarettes Second hand tobacco smoke exposure: Yes Alcohol intake: former Substance use: current Substance use type: marijuana Other substance usage details: daily Do You Feel Safe in your Home?: Yes Lack of Transportation: No Lack of Food: Never True Current Housing: I Have Housing Concerned About Future Housing: No Difficulty Paying Gas/Electric Bills: No Difficulty Paying for Meds: No Currently Unemployed: No Education: Associate Degree Difficulty w/ Childcare or Family Care: No Additional living arrangements comments: Lives with spouse and children in [place]. Spiritual care concerns: Yes Chato Roblero Final PreProcedure Day of Procedure 05/20/24 13:15 Patient weight: normal Heart: regular rate and rhythm Lungs: decreased breath sounds Airway: Mallampati scale class III Neurological: alert and oriented Last oral intake: >/= 8 hours ASA classification: III Emergent: no Anesthetic plan: proceed Anesthesia type and monitoring: general GIVS and standard monitoring Results Review: All pre-operative results and documents have been reviewed as part of the pre-operative evaluation. Informed Consent: The patient's anesthetic plan and its attendant risks and benefits were discussed with the patient/family/POA. Questions were solicited and answers provided to the satisfaction of the patient/family/POA.
--- NOTE | 2024-05-20 13:20 | WPDGIPROGNO ---
Progress Note: A&P Assessment and Plan (1) Rectal stricture: Code(s): K62.4 - Stenosis of anus and rectum Status: Acute Assessment and Plan: The patient is down for proctoscopy and 1st session of rectal stenosis dilatation. Subjective Date/time seen: 05/20/24 13:20 Objective Data Vital Signs Vital Signs: Vital Signs - 24 hr 05/19/24 14:00 05/19/24 18:00 05/19/24 20:05 Temperature 97.6 F 98.2 F 97.7 F Pulse Rate 77 75 66 Respiratory Rate 18 16 16 Blood Pressure 154/63 H 137/59 L 132/60 Pulse Oximetry 100 100 97 05/19/24 23:37 05/20/24 03:17 05/20/24 10:00 Temperature 97.6 F 97.1 F L Pulse Rate 67 68 72 Respiratory Rate 16 16 12 Blood Pressure 98/52 L 96/58 L 131/68 Pulse Oximetry 96 97 100 Intake/Output Intake/Output: Intake & Output 05/17/24 05/18/24 05/19/24 05/20/24 23:59 23:59 23:59 23:59 Intake Total 2740.0 2801.0 2901.2 1858.2 Output Total 2200 1050 2400 800 Balance 540.0 1751.0 501.2 1058.2 Meds/Results Medications: Active Medications Generic Name Dose Route Start Last Admin Trade Name Freq PRN Reason Stop Dose Admin Acetaminophen 650 mg 05/17/24 03:11 Acetaminophen 325 Mg Tablet PO Q4H PRN Mild Pain (1-3) or Fever Hydrocodone Bitart/Acetaminophen 1 tab 05/17/24 17:50 Hydrocodone/Acetaminophen (*Crx) 10-325 Mg Tablet PO Q4H PRN Moderate Pain (4-6) Aspirin 81 mg 05/17/24 09:00 05/20/24 09:48 Aspirin 81 Mg Enteric Tablet PO Not Given QAM [facility] Atorvastatin Calcium 20 mg 05/17/24 21:00 05/19/24 22:27 Atorvastatin 20 Mg Tablet PO 20 mg HS [facility]NE Administration Bisacodyl 10 mg 05/18/24 13:20 05/20/24 09:48 Bisacodyl 10 Mg Suppository RECTAL Not Given QAM [facility] Citalopram Hydrobromide 20 mg 05/17/24 09:00 05/20/24 09:49 Citalopram Hydrobromide 20 Mg Tablet PO Not Given QAM [facility] Cyclobenzaprine HCl 5 mg 05/18/24 14:00 05/20/24 05:47 Cyclobenzaprine Hcl 5 Mg Tablet PO 5 mg Q8HR [facility] Administration Enoxaparin Sodium 40 mg 05/17/24 09:00 05/20/24 09:49 Enoxaparin 40 Mg/0.4 Ml Syringe SUB-Q Not Given DAILY [facility] Sodium Chloride 1,000 mls @ 75 mls/hr 05/17/24 03:10 05/20/24 05:53 Normal Saline Iv IV CONT 75 mls/hr .[id number] [facility] Administration Meropenem 1 gm in 100 mls @ 200 mls/hr 05/18/24 10:00 05/20/24 10:44 IVPB 05/22/24 23:59 100 mls/hr Q8H [facility] Administration Ketorolac Tromethamine 15 mg 05/18/24 12:35 05/20/24 12:40 Ketorolac 15 Mg/Ml Vial (*Bkc) IV PUSH 15 mg Q6H [facility] Administration Linaclotide 72 mcg 05/18/24 06:30 05/20/24 05:47 Linaclotide 72 Mcg Capsule PO 72 mcg DAILY@0630 [facility] Administration Melatonin 10 mg 05/17/24 21:00 05/19/24 22:27 Melatonin 5 Mg Tablet PO 10 mg HS [facility] Administration Metronidazole 1 appful 05/18/24 21:00 05/19/24 22:27 Metronidazole 70 Gm Vag Gel.W.Appl VAGINAL 05/24/24 21:00 Not Given HS [facility] Morphine Sulfate 4 mg 05/17/24 03:09 05/20/24 09:37 Morphine Sulfate (*Crx) 4 Mg/Ml Inj IV PUSH 4 mg Q4H PRN Administration Pain Rated 7-10 Nortriptyline HCl 10 mg 05/17/24 21:00 05/19/24 22:27 Nortriptyline Hcl 10 Mg Capsule PO 10 mg HS [facility] Administration Polyethylene Glycol 17 gm 05/18/24 07:30 05/20/24 09:49 Polyethylene Glycol 3350 17 Gm Powd.Pack PO Not Given QAM [facility] Senna/Docusate Sodium 1 tab 05/17/24 09:00 05/20/24 09:49 Senna/Docusate Sodium Tablet PO Not Given BID [facility]US[facility]NE Trazodone HCl 150 mg 05/17/24 21:00 05/19/24 22:27 Trazodone Hcl 50 Mg Tablet PO 150 mg HS [facility]NE Administration Radiology Results: ITS Impressions Abdomen X-Ray 05/18/24 09:33 IMPRESSION: 1. Nonobstructive bowel gas pattern. 2. Sclerosis of the coccyx, consistent with chronic osteomyelitis.
[2024-05-20] MEDS: LACTATED RINGERS 1,000 ML 150 ML IV CONT (13:33)
[2024-05-20 13:43] LABS: Glucose Point of Care 102 mg/dl (65-105)
[2024-05-20 14:40] LABS: Glucose Point of Care 81 mg/dl (65-105)
--- NOTE | 2024-05-20 16:52 | WPDGIPROGNO ---
Progress Note: A&P Assessment and Plan (1) Rectal stricture: Code(s): K62.4 - Stenosis of anus and rectum Status: Acute Assessment and Plan: See sigmoidoscopy report. The patient underwent dilation of the rectal stricture, which is located approximately 7 cm above the anal margin. We were able to dilated it up to 15 mm, therefore an upper endoscope was able to pass an evidenced several stercoral ulcers right next to the dilated area. The plan is to have 1 more dilation session in approximately 1 week and to bring the dilation up to 18 mm. A 3rd session should be planned a week after, and will continue to dilate periodically until we reach a goal of 20 mm. The patient can be discharged home tomorrow morning with a low-fiber diet. Preparation instructions will be provided to the patient by our staff. (2) Stercoral ulcer of rectum: Code(s): K62.6 - Ulcer of anus and rectum Status: Acute Subjective Date/time seen: 05/20/24 16:52 Objective Data Vital Signs Vital Signs: Vital Signs - 24 hr 05/19/24 18:00 05/19/24 20:05 05/19/24 23:37 Temperature 98.2 F 97.7 F 97.6 F Pulse Rate 75 66 67 Respiratory Rate 16 16 16 Blood Pressure 137/59 L 132/60 98/52 L Pulse Oximetry 100 97 96 Oxygen Delivery 05/20/24 03:17 05/20/24 10:00 05/20/24 13:37 Temperature 97.1 F L 97.2 F L Pulse Rate 68 72 68 Respiratory Rate 16 12 16 Blood Pressure 96/58 L 131/68 128/58 L Pulse Oximetry 97 100 100 Oxygen Delivery Room Air 05/20/24 14:16 05/20/24 14:26 05/20/24 14:36 Temperature Pulse Rate 80 83 78 Respiratory Rate 20 20 20 Blood Pressure 110/67 124/66 145/87 H Pulse Oximetry 97 100 100 Oxygen Delivery Room Air Room Air Room Air Intake/Output Intake/Output: Intake & Output 05/17/24 05/18/24 05/19/24 05/20/24 23:59 23:59 23:59 23:59 Intake Total 2740.0 2801.0 2901.2 2058.2 Output Total 2200 1050 2400 800 Balance 540.0 1751.0 501.2 1258.2 Meds/Results Medications: Active Medications Generic Name Dose Route Start Last Admin Trade Name Freq PRN Reason Stop Dose Admin Acetaminophen 650 mg 05/17/24 03:11 Acetaminophen 325 Mg Tablet PO Q4H PRN Mild Pain (1-3) or Fever Hydrocodone Bitart/Acetaminophen 1 tab 05/17/24 17:50 Hydrocodone/Acetaminophen (*Crx) 10-325 Mg Tablet PO Q4H PRN Moderate Pain (4-6) Aspirin 81 mg 05/17/24 09:00 05/20/24 09:48 Aspirin 81 Mg Enteric Tablet PO Not Given QAM SUS[facility] Atorvastatin Calcium 20 mg 05/17/24 21:00 05/19/24 22:27 Atorvastatin 20 Mg Tablet PO 20 mg HS [facility] Administration Bisacodyl 10 mg 05/18/24 13:20 05/20/24 09:48 Bisacodyl 10 Mg Suppository RECTAL Not Given QAM [facility] Citalopram Hydrobromide 20 mg 05/17/24 09:00 05/20/24 09:49 Citalopram Hydrobromide 20 Mg Tablet PO Not Given QAM [facility] Cyclobenzaprine HCl 5 mg 05/18/24 14:00 05/20/24 15:09 Cyclobenzaprine Hcl 5 Mg Tablet PO 5 mg Q8HR [facility] Administration Enoxaparin Sodium 40 mg 05/17/24 09:00 05/20/24 09:49 Enoxaparin 40 Mg/0.4 Ml Syringe SUB-Q Not Given DAILY [facility]US[facility] Meropenem 1 gm in 100 mls @ 200 mls/hr 05/18/24 10:00 05/20/24 10:44 IVPB 05/22/24 23:59 100 mls/hr Q8H [facility] Administration Ketorolac Tromethamine 15 mg 05/18/24 12:35 05/20/24 12:40 Ketorolac 15 Mg/Ml Vial (*Bkc) IV PUSH 15 mg Q6H [facility] Administration Linaclotide 72 mcg 05/18/24 06:30 05/20/24 05:47 Linaclotide 72 Mcg Capsule PO 72 mcg DAILY@0630 [facility] Administration Melatonin 10 mg 05/17/24 21:00 05/19/24 22:27 Melatonin 5 Mg Tablet PO 10 mg HS [facility] Administration Metronidazole 1 appful 05/18/24 21:00 05/19/24 22:27 Metronidazole 70 Gm Vag Gel.W.Appl VAGINAL 05/24/24 21:00 Not Given HS [facility] Morphine Sulfate 4 mg 05/17/24 03:09 05/20/24 15:08 Morphine Sulfate (*Crx) 4 Mg/Ml Inj IV PUSH 4 mg Q4H PRN Administration Pain Rated 7-10 Nortriptyline HCl 10 mg 05/17/24 21:00 05/19/24 22:27 Nortriptyline Hcl 10 Mg Capsule PO 10 mg HS [facility] Administration Polyethylene Glycol 17 gm 05/18/24 07:30 05/20/24 09:49 Polyethylene Glycol 3350 17 Gm Powd.Pack PO Not Given QAM [facility] Senna/Docusate Sodium 1 tab 05/17/24 09:00 05/20/24 09:49 Senna/Docusate Sodium Tablet PO Not Given BID SUS[facility]NE Trazodone HCl 150 mg 05/17/24 21:00 05/19/24 22:27 Trazodone Hcl 50 Mg Tablet PO 150 mg HS [facility]NE Administration Radiology Results: ITS Impressions Abdomen X-Ray 05/18/24 09:33 IMPRESSION: 1. Nonobstructive bowel gas pattern. 2. Sclerosis of the coccyx, consistent with chronic osteomyelitis. Labs Labs: Laboratory Results - last 24 hr 05/20/24 05/20/24 13:11 14:37 POC Capillary Glucose 102 81
[2024-05-20] MEDS: traZODone HCL 50 MG TABLET 150 MG PO (20:40)
[2024-05-20] MEDS: ATORVASTATIN 20 MG TABLET PO (20:40)
[2024-05-20] MEDS: NORTRIPTYLINE HCL 10 MG CAPSULE PO (20:42)
[2024-05-20] MEDS: MELATONIN 5 MG TABLET 10 MG PO (20:43)
[2024-05-21 01:09] VITALS: BP 120/46; PULSE 90; RESP 18; TEMP 36.7; O2SAT 99
[2024-05-21] MEDS: KETOROLAC 15 MG/ML VIAL (*BKC) IV PUSH ×2 (01:13→05:46)
[2024-05-21] MEDS: MEROPENEM 1 GM/NS 100 ML 1 GM/100 ML BAG IVPB (01:14)
[2024-05-21 03:00] VITALS: BP 141/64; PULSE 83; RESP 18; TEMP 36.8; O2SAT 100
[2024-05-21 04:35] VITALS: BP 135/66; PULSE 80; RESP 18; TEMP 36.8; O2SAT 100
[2024-05-21] MEDS: MORPHINE SULFATE (*CRX) 4 MG/ML INJ IV PUSH ×2 (05:45→09:59)
[2024-05-21] MEDS: LINACLOTIDE 72 MCG CAPSULE PO (05:46)
[2024-05-21 05:58] LABS: Basophils Percent Auto 0.7 % (0.2-1.2); Eosinophils Absolute Auto 0.1 K/mm3 (0-0.3); Eosinophils Percent Auto 2.1 % (0-4.4); Hemoglobin 10.1 g/dL (12.0-15.0); Immature Granulocyte Absolute 0.03 K/mm3 (0.00-0.031); Immature Granulocyte Percent A 0.5 % (0-0.5); Lymphocytes Absolute Auto 1.68 K/mm3 (0.9-3.2); Mean Corpuscular HGB Conc 32.6 g/dl (32-36); Mean Corpuscular Hemoglobin 30.2 pg (26-34); Mean Corpuscular Volume 92.8 fl (80-100); Mean Platelet Volume 10.2 fl (7.4-10.4); Monocytes Absolute Auto 0.4 K/mm3 (0.1-0.6); Monocytes Percent Auto 7.1 % (2.6-8.5); Neutrophils Absolute Auto 3.5 K/mm3 (1.3-6.7); Neutrophils Percent Auto 60.6 % (45.5-73.1); Platelet Count Result 207 k/mm3 (150-375); Red Blood Count 3.34 M/mm3 (4.2-5.4); Red Cell Distribution Width 12.9 % (11.5-14.5); White Blood Count 5.8 K/mm3 (4.5-10.0)
[2024-05-21 06:10] LABS: Alanine Aminotransferase 28 U/L (6-35); Alkaline Phosphatase 76 U/L (38-126); Anion Gap 4 mmol/L (4-12); Aspartate Amino Transferase 39 U/L (14-36); Bilirubin,Total 0.3 mg/dL (0.2-1.3); Blood Urea Nitrogen 18 mg/dL (7-17); Calcium 8.8 mg/dL (8.4-10.2); Carbon Dioxide 23 mmol/L (22-30); Chloride 112 mmol/L (98-107); Estimated CRCL calculation 98 ml/min; Estimated Glomerular Filt Rate > 60; Glucose 183 mg/dL (65-110); Potassium 4.3 mmol/L (3.4-5.0); Sodium 139 mmol/L (137-145)
[2024-05-21] MEDS: SENNA/DOCUSATE SODIUM TABLET 1 TAB PO (09:52)
[2024-05-21] MEDS: polyethylene glycoL 3350 17 GM POWD.PACK PO (09:52)
[2024-05-21] MEDS: ASPIRIN 81 MG ENTERIC TABLET PO (09:52)
[2024-05-21] MEDS: SULFAMETHOXAZOLE/TRIMETHOPRIM 800/160 MG DS TABLET 1 TAB PO (09:52)
[2024-05-21] MEDS: CITALOPRAM HYDROBROMIDE 20 MG TABLET PO (09:52)
[2024-05-21] MEDS: ENOXAPARIN 40 MG/0.4 ML SYRINGE SUB-Q (09:53)
--- NOTE | 2024-05-21 10:19 | P.DS_ITS ---
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 Stercoral colitis. 2. Focal mild stricture in the rectum. 3. Gallbladder distention, which may be secondary to fasting. Correlate with physical exam to exclude acute cholecystitis. 4. Small volume of ascites. 5. Bladder stones. 6. Chronic osteomyelitis of the coccyx. * Patient underwent rectal dilation on 05/20. Patient to follow up with GI in a week for further rectal dilation. * Patient treated with IV Meropenem and transitioned to Bactrim oral for a UTI. * Patient received bowel regimen, improvement in bowel movements with regimen and dilation. Status at Discharge Functional status at discharge: wheelchair bound Overall status at discharge: patient is progressing back to baseline Time Spent with Patient Time attestation: Total time spent providing and/or coordinating discharge services: Time spent: Greater than 30 minutes Exam Const: General: no acute distress and uncomfortable Other: Pain in bilateral legs is an 8 , constant, chronic, and aching. Eyes: Sclera: sclerae normal Resp: Effort & Inspection: normal respiratory effort Auscultation: clear to auscultation bilaterally Cardio: Rate: regular rate Rhythm: regular rhythm GI: GI Palp: Yes Soft to palpation Auscultation: normal bowel sounds Skin: General skin exam: no rashes or lesions noted Extrem: General: normal to inspection and no pedal edema Psych: Affect: normal affect DS: Data Data Completed and Pending Labs on day of discharge: Labs from last 24 hours 05/21/24 05/20/24 05/20/24 05:33 14:37 13:11 WBC 5.8 RBC 3.34 L Hgb 10.1 L Hct 31.0 L MCV 92.8 MCH 30.2 MCHC 32.6 RDW 12.9 Plt Count 207 MPV 10.2 Immature Gran % (Auto) 0.5 Neut % (Auto) 60.6 Lymph % (Auto) 29.0 [place] % (Auto) 7.1 Eos % (Auto) 2.1 Baso % (Auto) 0.7 Lymph # (Auto) 1.68 [place] # (Auto) 0.4 Eos # (Auto) 0.1 Baso # (Auto) 0.0 Abs Immat Gran (auto) 0.03 Absolute Neuts (auto) 3.5 Absolute Nucleated RBC 0.000 Nucleated RBC % 0.0 Sodium 139 Potassium 4.3 Chloride 112 H Carbon Dioxide 23 Anion Gap 4 BUN 18 H Creatinine 0.80 Estim Creat Clear Calc 98 Estimated GFR > 60 Glucose 183 H POC Capillary Glucose 81 102 Calcium 8.8 Total Bilirubin 0.3 AST 39 H ALT 28 Alkaline Phosphatase 76 Total Protein 6.0 L Albumin 3.0 L Discharge Plan Discharge Attending physician on discharge: Timoteo Escamilla Consulting providers: Mara Mcdonald Discharging Clinician: Sherri Michaels Anticipated Discharge Date/Time: 05/21/24 12:00 Patient Disposition: Home, Self-Care Activity: october shower Diet: low fiber Discharge Instructions: * Low fiber diet * Plan next rectal dilation in a week. Call Dr. Oviedo office to set up appointment. * Complete all doses of antibiotics Thank you for entrusting [facility] with your healthcare. Patient Instructions: Antibiotic Form, Urinary Tract Infection in Women (DC), Low Fiber Diet (DC) Stand Alone Forms: General Discharge Information Follow-up/Referrals: Benny Oviedo MD [Physician] - 1 Week Discharge Medications: New bisacodyl 10 mg Suppository 10 mg RECTAL QAM Qty: 30 0RF polyethylene glycol 3350 [Miralax] 17 gram Powder In Packet 17 g PO QAM Qty: 30 0RF sulfamethoxazole-trimethoprim 800-160 mg Tablet 1 tablet PO Q12HR Qty: 3 0RF Linzess 72 mcg Capsule 72 mcg PO DAILY@0630 Qty: 30 0RF metronidazole 0.75 % (37.5mg/5 gram) gel 1 appful vaginal HS 4 Days Qty: 70 0RF Continued atorvastatin 20 mg tablet 20 mg PO HS trazodone 100 mg Tablet 150 mg PO HS aspirin 81 mg Tablet 81 mg PO DAILY citalopram [Celexa] 20 mg tablet 20 mg PO QAM nortriptyline 10 mg Capsule 10 mg PO HS Qty: 30 0RF oxycodone-acetaminophen 5-325 mg tablet 1 tablet PO TID PRN (Reason: Pain) cranberry 500 mg Capsule 500 mg PO QAM Rx Instructions: administer with meals acidophilus-pectin, citrus 100 million cell-10 mg Capsule 1 cap PO QAM Discontinued melatonin 10 mg Tablet 10 mg PO HS Date of admission: 05/17/24 03:23 Primary Care Provider: SamsonKorey Admitting Provider: Natty Sotomayor Attending physician on admission: Natty Sotomayor Condition: Stable Hospitalist MIPS Heart Failure (Exclusion) Patient has history of Heart Transplant or Left Ventricular Assistive Device?: No IF YES, STOP HERE Heart Failure (Qualifier) Patient has current or prior documentation of LVEF less than or equal to 40%, or mod/servere depressed LVSF?: No IF NO, STOP HERE
--- NOTE | 2024-05-21 13:49 | P.PNAN_ITS ---
Anes - Prog Note Post-Op Date/Time: 05/21/24 13:49 Cardiovascular status: normal Respiratory status: normal Airway patency: baseline Mental status: baseline Post-Op hydration status: normal Vital Signs: Last Vital Signs Temp 36.8 C 05/21/24 04:35 Pulse 80 05/21/24 04:35 Resp 18 05/21/24 04:35 BP 135/66 05/21/24 04:35 Pulse Ox 100 05/21/24 04:35 O2 Del Method Room Air 05/20/24 14:36 Pain Score (VAS): 0 I/O: Intake & Output 05/20/24 05/21/24 05/21/24 23:59 07:59 15:59 Intake Total 1380 200 240 Output Total 1650 350 Balance -270 -150 240 Laboratory Tests 05/21/24 05:33 05/21/24 05:33 05/20/24 05/21/24 14:37 05:33 WBC 5.8 RBC 3.34 L Hgb 10.1 L Hct 31.0 L MCV 92.8 MCH 30.2 MCHC 32.6 RDW 12.9 Plt Count 207 MPV 10.2 Immature Gran % (Auto) 0.5 Neut % (Auto) 60.6 Lymph % (Auto) 29.0 [place] % (Auto) 7.1 Eos % (Auto) 2.1 Baso % (Auto) 0.7 Lymph # (Auto) 1.68 [place] # (Auto) 0.4 Eos # (Auto) 0.1 Baso # (Auto) 0.0 Abs Immat Gran (auto) 0.03 Absolute Neuts (auto) 3.5 Absolute Nucleated RBC 0.000 Nucleated RBC % 0.0 Sodium 139 Potassium 4.3 Chloride 112 H Carbon Dioxide 23 Anion Gap 4 BUN 18 H Creatinine 0.80 Estim Creat Clear Calc 98 Estimated GFR > 60 Glucose 183 H POC Capillary Glucose 81 Calcium 8.8 Total Bilirubin 0.3 AST 39 H ALT 28 Alkaline Phosphatase 76 Total Protein 6.0 L Albumin 3.0 L Post-procedural complaints: none Patient Feedback: Patient satisfied with anesthetic care.
== END 2024-05-21 12:20 | disposition home or self-care (01) | DRG 394 ==
PROVIDERS: Internal Medicine Gastroenterology; Nurse Practitioner Gerontology; Admitting Provider Internal Medicine; PCP Physician Assistant; Visit Provider Nurse Practitioner Family
PROC: 0DJD8ZZ Inspection of Lower Intestinal Tract, Via Natural or Artificial Opening Endoscopic (ICD-10-PCS; CPT 45330; principal; 2024-05-20 15:00)
DX: K62.4 Stenosis of anus and rectum (principal); G82.20 Paraplegia, unspecified; T83.511A Infection and inflammatory reaction due to indwelling urethral catheter, initial encounter; K56.600 Partial intestinal obstruction, unspecified as to cause; G97.82 Other postprocedural complications and disorders of nervous system; K62.6 Ulcer of anus and rectum; K52.89 Other specified noninfective gastroenteritis and colitis; E10.9 Type 1 diabetes mellitus without complications; E10.42 Type 1 diabetes mellitus with diabetic polyneuropathy; E78.5 Hyperlipidemia, unspecified; K59.00 Constipation, unspecified; N20.0 Calculus of kidney; N31.9 Neuromuscular dysfunction of bladder, unspecified; F17.210 Nicotine dependence, cigarettes, uncomplicated; T81.89XS Other complications of procedures, not elsewhere classified, sequela; Z86.718 Personal history of other venous thrombosis and embolism; Z89.421 Acquired absence of other right toe(s); Z89.422 Acquired absence of other left toe(s); Z79.82 Long term (current) use of aspirin
CPT/HCPCS: 36415; 74018; 80048; 80053; 81001; 82948; 85025; 85027; 93005; A9270; C1726; J1650; J1836; J1885; J1956; J2003; J2185; J2270; J2405; J2704; J7030; J7120

== ENCOUNTER 2024-05-27 01:27 | Day surgery (SDC) | payer OTHER, MEDICAID, SELFPAY ==
[2024-05-25 15:11] VITALS: BMI 25.4
[2024-05-27 14:03] VITALS: BP 137/91; PULSE 99; RESP 20; TEMP 36; O2SAT 100
--- NOTE | 2024-05-27 14:07 | P.PNAN_ITS ---
Anes - Eval Final PreProcedure Day of Procedure 05/27/24 14:07 Patient weight: normal Heart: regular rate and rhythm Lungs: clear to auscultation Airway: Mallampati scale class II Neurological: alert and oriented Last oral intake: >/= 8 hours ASA classification: III Emergent: no Anesthetic plan: proceed Anesthesia type and monitoring: general GIVS and standard monitoring Results Review: All pre-operative results and documents have been reviewed as part of the pre- operative evaluation. Informed Consent: The patient's anesthetic plan and its attendant risks and benefits were discussed with the patient/family/POA. Questions were solicited and answers provided to the satisfaction of the patient/family/POA.
[2024-05-27] MEDS: LACTATED RINGERS 1,000 ML 150 ML IV CONT (14:09)
[2024-05-27 14:16] LABS: Glucose Point of Care 123 mg/dl (65-105)
--- NOTE | 2024-05-27 14:39 | P.HP_ITS ---
H&P: HPI History of Present Illness Date/Time: 05/27/24 14:39 Chief Complaint: Rectal stricture -constipation Narrative: the patient has a long story of ischemic colitis with sequela of rectal stenosis. On 2023 I performed a dilation with a balloon 12-15 mm, finding stercoral ulcers above the stricture. She is here for her 2nd session, the plan is to dilate up to 18 mm. Review of Systems Review of Systems: All systems reviewed & are unremarkable except as noted in HPI and below PMFSH Past Medical History Medical History Abnormality of rectum Aortic thrombus Clostridium difficile diarrhea Deep venous thrombosis Diabetic peripheral neuropathy Hyperlipidemia Intractable nausea and vomiting Ischemic colitis Neurogenic bladder Paraplegia Spinal cord stroke Type 1 diabetes mellitus Surgical History Surgical History History of aorto-femoral bypass [facility] History of partial amputation of toe 4th and 5th toe bilaterally Family History Family History Mother Acute myocardial infarction Diabetes mellitus Hypertension Father History of blood clots Social History Social History Social History: Surrogate medical decision maker: Ml Aguilar, mother. Code status: Full code. Smoking packs per day: 0.33 Smoking cigarettes per day: 6.6 Years smoked: 25 Smoking pack-years: 8.25 Smoking status: Current every day smoker Tobacco type: cigarettes Second hand tobacco smoke exposure: Yes Alcohol intake: former Substance use: current Substance use type: marijuana Other substance usage details: daily Do You Feel Safe in your Home?: Yes Lack of Transportation: No Lack of Food: Never True Current Housing: I Have Housing Concerned About Future Housing: No Difficulty Paying Gas/Electric Bills: No Difficulty Paying for Meds: No Currently Unemployed: No Education: Associate Degree Difficulty w/ Childcare or Family Care: No Additional living arrangements comments: Lives with spouse and children in [place]. Spiritual care concerns: Yes Meds Home Medications and Allergies Home Medications ?Medication ?Instructions ?Recorded ?Confirmed ?Type atorvastatin 20 mg tablet 20 mg PO 11/10/23 05/27/24 History trazodone 100 mg tablet 150 mg PO 11/10/23 05/27/24 History aspirin 81 mg tablet 81 mg PO DAILY 02/10/24 05/27/24 History citalopram 20 mg tablet (Celexa) 20 mg PO QAM 03/23/24 05/27/24 History nortriptyline 10 mg capsule 10 mg PO HS #30 caps 03/25/24 05/27/24 Rx acidophilus 100 million 1 cap PO QAM 05/17/24 05/27/24 History cell-pectin, citrus 10 mg capsule cranberry 500 mg capsule 500 mg PO QAM 05/17/24 05/27/24 History oxycodone-acetaminophen 5 mg-325 1 tablet PO TID PRN Pain 05/17/24 05/27/24 History mg tablet bisacodyl 10 mg rectal suppository 10 mg RECTAL QAM #30 ea 05/21/24 05/27/24 Rx linaclotide 72 mcg capsule 72 mcg PO DAILY@0630 #30 caps 05/21/24 05/27/24 Rx (Linzess) metronidazole 0.75 % (37.5 mg/5 1 appful vaginal HS 4 days #70 05/21/24 05/27/24 Rx gram) vaginal gel grams polyethylene glycol 3350 17 gram 17 g PO QAM #30 ea 05/21/24 05/27/24 Rx oral powder packet (Miralax) sulfamethoxazole 800 1 tablet PO Q12HR #3 tabs 05/21/24 05/27/24 Rx mg-trimethoprim 160 mg tablet Allergies Allergy/AdvReac Type Severity Reaction Status Date / Time azithromycin Allergy Unknown Hives Verified 05/27/24 13:59 amoxicillin AdvReac Unknown Verified 05/27/24 13:59 Vital Signs Vital Signs - 24 hr 05/27/24 14:03 Temperature 96.8 F L Pulse Rate 99 Respiratory Rate 20 Blood Pressure 137/91 H Pulse Oximetry 100 Oxygen Delivery Room Air Exam Const: General: cooperative and healthy appearing Resp: Effort & Inspection: normal respiratory effort and able to speak in complete sentences Auscultation: clear to auscultation bilaterally Cardio: Rate: regular rate Rhythm: regular rhythm GI: Inspection: normal to inspection GI Palp: No No hepatosplenomegaly present Auscultation: normal bowel sounds Rectal Exam: deferred Skin: General skin exam: normal color Psych: Appearance: grossly normal Mental Status: mental status grossly normal Assessment and Plan Assessment and plan (1) Rectal stricture: Code(s): K62.4 - Stenosis of anus and rectum Status: Acute Assessment and Plan: Will proceed as stated above. The patient is deemed a good candidate for the procedure. Consent signed. (2) Stercoral ulcer of rectum: Code(s): K62.6 - Ulcer of anus and rectum Status: Acute
[2024-05-27 15:08] LABS: BEDSIDEPREGUCG Negative (Negative)
[2024-05-27 15:30] VITALS: BP 94/57; PULSE 78; RESP 17; O2SAT 98
[2024-05-27 15:40] VITALS: BP 138/80; PULSE 79; RESP 20; O2SAT 99
[2024-05-27 15:50] VITALS: BP 170/95; PULSE 79; RESP 20; O2SAT 99
== END 2024-05-27 16:17 | disposition home or self-care (01) ==
PROVIDERS: Anesthesiology; PCP Physician Assistant; Visit Provider Internal Medicine Gastroenterology
PROC: 0DJD8ZZ Inspection of Lower Intestinal Tract, Via Natural or Artificial Opening Endoscopic (ICD-10-PCS; CPT 45330; principal; 2024-05-27 14:30)
DX: K62.4 Stenosis of anus and rectum (principal); K62.6 Ulcer of anus and rectum; E78.5 Hyperlipidemia, unspecified; E10.42 Type 1 diabetes mellitus with diabetic polyneuropathy; N31.9 Neuromuscular dysfunction of bladder, unspecified; G82.20 Paraplegia, unspecified; F12.90 Cannabis use, unspecified, uncomplicated; F17.210 Nicotine dependence, cigarettes, uncomplicated; Z79.82 Long term (current) use of aspirin; Z79.891 Long term (current) use of opiate analgesic; Z98.890 Other specified postprocedural states; Z89.429 Acquired absence of other toe(s), unspecified side; Z95.1 Presence of aortocoronary bypass graft; Z87.19 Personal history of other diseases of the digestive system; Z86.718 Personal history of other venous thrombosis and embolism; Z82.49 Family history of ischemic heart disease and other diseases of the circulatory system
CPT/HCPCS: 45340; 82948; C1726; J2003; J2704; J7120

== ENCOUNTER 2024-06-03 01:31 | Day surgery (SDC) | payer OTHER, MEDICAID, SELFPAY ==
[2024-06-01 14:46] VITALS: BMI 23.5
[2024-06-03 13:36] VITALS: BP 126/72; PULSE 105; RESP 16; TEMP 36.1; O2SAT 100
[2024-06-03] MEDS: LACTATED RINGERS 1,000 ML 150 ML IV CONT (13:53)
[2024-06-03 13:54] LABS: BEDSIDEPREGUCG Negative (Negative)
--- NOTE | 2024-06-03 14:27 | P.PNAN_ITS ---
Anes - Eval Final PreProcedure Day of Procedure 06/03/24 14:27 Patient weight: normal Heart: regular rate and rhythm Lungs: clear to auscultation Airway: Mallampati scale class II Neurological: alert and oriented Last oral intake: >/= 8 hours ASA classification: III Emergent: no Anesthetic plan: proceed Anesthesia type and monitoring: general GIVS and standard monitoring Results Review: All pre-operative results and documents have been reviewed as part of the pre- operative evaluation. Informed Consent: The patient's anesthetic plan and its attendant risks and benefits were discussed with the patient/family/POA. Questions were solicited and answers provided to the satisfaction of the patient/family/POA.
[2024-06-03 15:07] VITALS: BP 95/52; PULSE 83; RESP 16; O2SAT 100
[2024-06-03 15:17] VITALS: BP 108/74; PULSE 92; RESP 21; O2SAT 100
[2024-06-03 15:27] VITALS: BP 131/82; PULSE 88; RESP 16; O2SAT 100
[2024-06-03 15:37] VITALS: BP 138/87; PULSE 87; RESP 20; O2SAT 100
== END 2024-06-03 15:40 | disposition home or self-care (01) ==
PROVIDERS: Anesthesiology; PCP Physician Assistant; Visit Provider Internal Medicine Gastroenterology
PROC: 0DJD8ZZ Inspection of Lower Intestinal Tract, Via Natural or Artificial Opening Endoscopic (ICD-10-PCS; CPT 45330; principal; 2024-06-03 14:30)
DX: K62.4 Stenosis of anus and rectum (principal)
CPT/HCPCS: 45340; J2003; J2371; J2704; J7120

== ENCOUNTER 2024-07-14 14:27 | Outpatient (RCR) | payer OTHER, MEDICAID, SELFPAY ==
--- NOTE | 2024-07-21 16:01 | OPREHPOC ---
Outpatient Therapy Plan of Care This is a Multidisciplinary Plan of Care that may contain components documented by all disciplines (PT, OT, and ST.) PT Problem 1 PT Problem #1 Knowledge Deficit PT Goal 1 Goal / Goal Update Pt. will be independent with a HEP focusing on l.e . strength and sitting endurance. requires assistance from family. Target Visit 2 Progress Partially Met PT Problem 2 PT Problem #2 Impaired Strength PT Goal 1 Goal / Goal Update -Pt. will present with ability to complete a bridge indicating improved hip extensor strength -Pt. will demonstrate ability to complete gravity eliminated hip flexion in a full arch of motion in side lying Target Visit 20 Progress Not Met PT Problem 3 PT Problem #3 Impaired Functional Mobility PT Goal 1 Goal / Goal Update Pt. will improve functional sitting test score by 5-10 points indicating improved participation in transfers. not met Pt. will be able to sit unsupported and reach for objects for 5 minute duration without u.e. support . met Pt. will be able to stand with cga in the walker for duration of 2-3 minutes. not met Target Visit 20 Progress Partially Met OT Problem 1 OT Problem #1 Knowledge Deficit OT Goal 1 Goal / Goal Update The patient will demonstrate 100% knowledge and return demonstration of UE HEP needed to increase and maintain UB and core strength for ability to increase transfer safety. GOAL MET; DISCONTINUE Target Visit 10 OT Goal 2 Goal / Goal Update NEW GOAL 06/02: The patient will demonstrate 100% knowledge for AE needed for ADLs and transfers to maintain highest level of independence with shaving, donning clothes, performing shower transfers and showering tasks or other IADLs as needed. Target Visit 20 OT Problem 2 OT Problem #2 Impaired Strength OT Goal 1 Goal / Goal Update The patient will demonstrate B UE strength of 5/5 in order to increase strength for use of walker when practicing transfers. PROGRESS: B shoulders 4+/5 B elbows 4/5 GOAL PROGRESSING; CONTINUE Target Visit 20 OT Goal 2 Goal / Goal Update The patient will demonstrate 4+/5 trunk strength when tested to improve transfer safety. PROGRESS: Trunk strength 3-/5 GOAL PROGRESSING; CONTINUE assess for plateau Target Visit 20 OT Problem 3 OT Problem #3 Impaired Endurance OT Goal 1 Goal / Goal Update The patient will demonstrate increased endurance engaging in 15 minutes of UB exercises and activities without need for rest break and reporting 1 on RPE during activity. PROGRESS: RPE rated at 2, 10 minutes with two slight breaks GOAL PROGRESS; UPGRADED Target Visit 20
--- NOTE | 2024-07-21 16:01 | PTOPDC ---
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 she has not yet gotten her sit to stand device at home. she reports she does see a neurologist in august. Reported Pain Level Pain Score 0: Self Report Pain Score 0: Self Report Assessment PT Clinical Summary mrs. verma presents to skilled PT services for her 20th skilled therapy visit. she has made no more progress towards goals since her last re- evaluation. as of this date, PT will DC patient to an independent HEP. patient was instructed we may begin therapy again if she starts to see some improvement in her mm activation of the LE's. Plan of Care PT Services Indicated Yes
--- NOTE | 2024-07-29 14:15 | BUOTOPDC ---
Assessment and note entered by Deloris Sloan, OT Evaluation Information Assessment Status Discharge - Pt Not Present Diagnosis Spinal cord infarction Reported Pain Level Pain Score 0: Self Report Pain Score 0: Self Report Pain Score 0: Self Report Pain Score 0: Self Report Pain Score 0: Self Report Pain Score 0,8: Self Report Pain Score 0: Self Report Pain Score 0: Self Report Assessment OT Clinical Summary The patient was discharged from OT 07/23/2024 due to meeting strength and endurance goals and plateau in other areas of POC. Therapist has educated the patient on progression of OT services and has been prepped for discharge from OT services. Therapist educated patient on UE HEP to use strong resistance band to perform shoulder and elbow exercises (rows, shoulder extensions, bilateral horizontal abduction, bilateral external rotation, shoulder flexion, shoulder diagonal flexion/ abduction) to maintain UB strength. The patient demonstrates understanding of UE HEP through verbal communication. Therapist has educated patient on the use of adaptive equipment such as long handled razors for shaving legs, long handled sponge, sock aid, director of community services, dressing stick, long handled shoe horn, tub transfer bench with sliding board, grab bars, removable shower head in order to maximize independence in all ADLs and desired activities. The patient has demonstrated minimal to no interest in these activities and use of the equipment. The patient demonstrates frustration with equipment but therapist did provide supply examples and technique training for the patient's knowledge with poor carryover. The patient has demonstrated increase core strength and endurance through UB exercises and endurance training throughout OT services where she has reported that transfers and mobility is easier for her now that her arms are much stronger. The patient demonstrated good progress toward goals and is discharged at this time with HEP. Plan of Care Interventions Therapeutic Exercise,Neuro Re-education, Therapeutic Activities,Sensory Integrative Techniques,Self-Care/Home Management OT Services Indicated No
--- NOTE | 2024-07-29 14:15 | OPREHPOC ---
Outpatient Therapy Plan of Care This is a Multidisciplinary Plan of Care that may contain components documented by all disciplines (PT, OT, and ST.) PT Problem 1 PT Problem #1 Knowledge Deficit PT Goal 1 Goal / Goal Update Pt. will be independent with a HEP focusing on l.e . strength and sitting endurance. requires assistance from family. Target Visit 2 Progress Partially Met PT Problem 2 PT Problem #2 Impaired Strength PT Goal 1 Goal / Goal Update -Pt. will present with ability to complete a bridge indicating improved hip extensor strength -Pt. will demonstrate ability to complete gravity eliminated hip flexion in a full arch of motion in side lying Target Visit 20 Progress Not Met PT Problem 3 PT Problem #3 Impaired Functional Mobility PT Goal 1 Goal / Goal Update Pt. will improve functional sitting test score by 5-10 points indicating improved participation in transfers. not met Pt. will be able to sit unsupported and reach for objects for 5 minute duration without u.e. support . met Pt. will be able to stand with cga in the walker for duration of 2-3 minutes. not met Target Visit 20 Progress Partially Met OT Problem 1 OT Problem #1 Knowledge Deficit OT Goal 1 Goal / Goal Update The patient will demonstrate 100% knowledge and return demonstration of UE HEP needed to increase and maintain UB and core strength for ability to increase transfer safety. GOAL MET; DISCONTINUE Target Visit 10 Progress Met OT Goal 2 Goal / Goal Update NEW GOAL 06/02: The patient will demonstrate 100% knowledge for AE needed for ADLs and transfers to maintain highest level of independence with shaving, donning clothes, performing shower transfers and showering tasks or other IADLs as needed. GOAL DISCONTINUED; MINIMAL INTEREST Target Visit 20 Progress Not Met OT Problem 2 OT Problem #2 Impaired Strength OT Goal 1 Goal / Goal Update The patient will demonstrate B UE strength of 5/5 in order to increase strength for use of walker when practicing transfers. GOAL MET; DISCONTINUE B shoulders 5/5 B elbows 5/5 Target Visit 20 Progress Met OT Goal 2 Goal / Goal Update The patient will demonstrate 4+/5 trunk strength when tested to improve transfer safety. GOAL DISCONTINUED; PLATEAU Trunk strength 3-/5 Target Visit 20 Progress Not Met OT Problem 3 OT Problem #3 Impaired Endurance OT Goal 1 Goal / Goal Update The patient will demonstrate increased endurance engaging in 15 minutes of UB exercises and activities without need for rest break and reporting 1 on RPE during activity. GOAL PARTIALLY MET; DISCONTINUED RPE rated at 2, 15 minutes with two slight breaks Target Visit 20
== END 2024-10-12 23:59 | disposition home or self-care (01) ==
LOC: CHSOT 14:27
PROVIDERS: Visit Provider Physician Assistant
DX: G95.11 Acute infarction of spinal cord (embolic) (nonembolic) (principal)
CPT/HCPCS: 97110; 97112; 97530

== ENCOUNTER 2024-08-10 13:46 | Outpatient (RCR) | payer OTHER, BC, MEDICAID, SELFPAY ==
--- NOTE | 2024-08-10 14:46 | PTOPREEVAL ---
Assessment and note entered by Jose Lam Evaluation Information Assessment Status Progress Diagnosis spinal cord infarction G95.11 ICD-10 Condition Codes (PT) Weakness R53.1 Onset 06/06/24 Subjective Information Pt. reports she re-visited with her doctor who requested she return to therapy. She reports that she is still frustrated and uncertain of what she will be able to do. She reports she has access to a standing frame, but has been unable to get the transportation to knot picker cloth the device. She states that she would like to be able to walk, but understands that may never happen. She reports that she still has difficulty with transfers due to inability to stand. She states that she does have a pressure sore on the buttocks that is almost heeled. She reports that she has not gotten much effective exercise at home. 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 Reported Pain Level Pain Score 5: Self Report Assessment PT Clinical Summary Pt. re-enters the clinic shortly after being discharged. She enters with regression noted in standing endurance, strength and functional mobility. In past conversation with her referring practitioner, her outcome is still uncertain, but getting more likely that she will note ambulate. She has a history of pressure sores due to inability to effectively participate in standing activities at home. She would benefit from continued skilled PT focused on stimulating core and u.e. strength for continued effective participation in transfers and to allow for an environment to effectively perform pressure relief techniques using the Skylar Steady device. Plan of Care Interventions Manual Therapy,Neuro Re-education,Therapeutic Activities,Therapeutic Exercise PT Services Indicated Yes Treatment Frequency and 1x/week x 6 visits Duration These treatments will address the objective and functional deficits as defined above. The patient will be advanced safely and appropriately in order for the patient to progress towards his/her prior level of function. Additional exercises will be introduced and as well as a comprehensive home exercise program upon discharge, if needed, to ensure carryover of functional gains achieved in the clinic. This treatment plan has been reviewed and agreement upon by the patient.
== END 2024-11-08 23:59 | disposition home or self-care (01) ==
LOC: CHSPT 13:46
PROVIDERS: PCP Physician Assistant; Visit Provider Physician Assistant
DX: G95.11 Acute infarction of spinal cord (embolic) (nonembolic) (principal)
CPT/HCPCS: 97530

== ENCOUNTER 2024-09-14 16:39 | Outpatient (CLI) | payer OTHER, MEDICAID, SELFPAY ==
[2024-09-14 16:55] LABS: Basophils Percent Auto 0.6 % (0.0-1.0); Eosinophils Absolute Auto 0.38 K/mm3 (0.02-0.50); Eosinophils Percent Auto 2.4 % (1.0-6.0); Hematocrit 44.2 % (35.0-49.0); Hemoglobin 14.6 g/dL (12.0-15.0); Immature Granulocyte Percent A 0.6 % (0.0-0.0); Lymphocytes Absolute Auto 1.75 K/mm3 (1.10-4.50); Lymphocytes Percent Auto 11.3 % (18.0-42.0); Mean Corpuscular Volume 90.8 fL (78.0-102.0); Mean Platelet Volume 10.1 fl (9.2-11.8); Monocytes Absolute Auto 0.85 K/mm3 (0.10-0.90); Monocytes Percent Auto 5.5 % (2.0-11.0); Neutrophils Absolute Auto 12.34 K/mm3 (1.70-7.20); Neutrophils Percent Auto 79.6 % (50.0-70.0); Platelet Count Result 269 K/mm3 (150-420); Red Blood Count 4.87 M/mm3 (4.20-5.40); Red Cell Distribution Width 12.5 % (11.6-14.4); White Blood Count 15.5 K/mm3 (4.8-10.8)
--- OUTSIDE RECORDS SUMMARY | 2024-09-14 17:39 | XMS_ITS | Clinical Summary ---
Author Organization [facility] Address [address] [place] [address] Phone Care Team Providers Care Archival Records Clerk Name Role Phone Anjum Araiza MD Primary Care Provider [phone] Allergies No known active allergies Medications citalopram (CeleXA) 10 MG Tablet Take 10 mg by mouth daily. Active traZODone (DESYREL) 100 MG Tablet Take 100 mg by mouth nightly. Active Cranberry 4200 MG Capsule Take 1 Capful by mouth daily. Active nortriptyline (PAMELOR) 10 MG Capsule Take 10 mg by mouth nightly. Active Melatonin 5 MG Capsule Take 2 Capsules by mouth nightly. Active oxybutynin (DITROPAN) 5 MG Tablet Take 5 mg by mouth daily. Active gabapentin (NEURONTIN) 600 MG Tablet Take 600 mg by mouth 3 times daily. Active ASPIRIN 81 POIndications: Antiseizure Therapy Take 1 Tablet by mouth daily. Indications: Anticonvulsant Medication Therapy Active vancomycin (VANCOCIN) 125 MG Capsule Take 125 mg by mouth every 6 hours. rx [id number] Active pantoprazole (PROTONIX) 40 MG Tablet Delayed Response Take 40 mg by mouth daily. [id number] Active Probiotic Product (Daily Probiotic) Capsule Take 1 Tablet by mouth daily. Active metoclopramide (REGLAN) 10 MG Tablet Take 10 mg by mouth 2 times daily. 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 Gender Identity Not on file Sexual Orientation Not on file Last Filed Vital Signs Vital Sign Reading Time Taken Comments Blood Pressure 102/58 04/07/2024 5:00 PM CDT Pulse 94 04/07/2024 5:00 PM CDT Temperature 36.2 C (97.2 F) 04/07/2024 5:00 PM CDT Respiratory Rate 18 04/07/2024 5:00 PM CDT Oxygen Saturation 97% 04/07/2024 5:00 PM CDT Inhaled Oxygen Concentration - - Weight 83 kg (183 lb) 03/19/2024 3:42 PM CDT Height 189.9 cm (6' 2.75 ) 03/19/2024 3:42 PM CD T Body Mass Index 23.03 03/19/2024 3:42 PM CDT Plan of Treatment Not on file Insurance MEDICAID [place] Advance Directives * Full Code (Latest Code Status on File) Date Activated Date Inactivated Comments 03/09/2024 10:03 AM Care Teams Archival Records Clerk Relationship Specialty Start Date End Date Anjum Araiza MD [address] [phone] PCP - General Family Medicine 01/29/24
--- OUTSIDE RECORDS SUMMARY | 2024-09-14 17:39 | XMS_ITS | Encounter Summary ---
Author Organization [facility] Address [facility] [place] [address] Care Team Providers Care Cold Storage Worker Name Role Phone Anjum Araiza MD Primary Care Provider [phone] Encounter Details Date Type Department Care Team (Late st Contact Info) Description 11/22/2018 Abstract [facility] CONVERSION [address] [place] [address] , Generic MD Miguelito Social History Tobacco Use Types Packs/Day Years Used Date Smoking Tobacco: Never Assessed Comments Unknown Sex and Gender Information Value Date Recorded Sex Assigned at Female 06/23/2019 10:01 AM DIRECTOR INTERNAL AUDIT Legal Sex Female 5:56 PM DIRECTOR INTERNAL AUDIT Gender Identity Female 06/23/2019 10:01 AM DIRECTOR INTERNAL AUDIT Sexual Orientation Not on file documented as of this encounter Plan of Treatment Upcoming Encounters Date Type Department Care Team (Late st Contact Info) Description 12/03/2024 1:20 PM CDT Office Visit [facility] - [address], [address] [place] [id number] Darcy Bernal MD [address] [place] [id number] documented as of this encounter Visit Diagnoses Not on filedocumented in this encounter Care Teams Cold Storage Worker Relationship Specialty Start Date End Date nAjum Araiza MD [address] [place] [phone] PCP - General FAMILY PRACTICE 06/18/19 documented as of this encounter
--- OUTSIDE RECORDS SUMMARY | 2024-09-14 17:39 | XMS_ITS | Clinical Summary ---
Author Organization [facility] Address [address] [place] [address] Care Team Providers Care Integration Aide Name Role Phone Anujm Araiza MD Primary Care Provider [phone] Source Comments [facility],non-owned Affiliates and Associated Physician Practices is amultiple site organization consisting of ambulatory clinics and hospital sitesin [place], [place], [place] and [place]. This disclosure is being madepursuant to the Care Everywhere program and may not contain all information available regarding this patient. Last updated 18.[facility] Allergies Active Allergy Reactions Criticality Noted Date Comments Amoxicillin Other 01/20/2024 Yeast infections Azithromycin Rash Medium 01/20/2024 Medications * Be aware that medications may not be up to date on this document. Alwaysverify current medications with the patient. Medication Sig Dispensed Refills Start Date End Date Status atorvastatin (Lipitor) 20 MG tablet Take 1 (one) tablet by mouth at bedtime Active acetaminophen (Tylenol) 325 MG tablet Take 1 (one) tablet by mouth every 4 hours as needed for Fever or Pain (mild pain) Maximum allowable Acetaminophen amount = 3 Grams (3000 mg) / 24 hours. Active citalopram (CeleXA) 20 MG tablet Take 1 (one) tablet by mouth once daily Active Melatonin 10 MGIndications:Ins omnia Take 10 (ten) mg by mouth at bedtime Reasons: Trouble Sleeping Active oxyCODONE-acetami nophen (Percocet) 5-325 MG tablet Take 1 (one) tablet by mouth every 6 hours as needed for Pain Active pregabalin (Lyrica) 50 MG capsule Take 1 (one) capsule by mouth 3 times daily Active insulin glargine (Lantus/Semglee) 100 units/ml injection Inject 33 (thirty three) Units subcutaneously at bedtime 10 mL 01/24/2024 Active carvedilol (Coreg) 6.25 MG tablet TAKE 1 TABLET BY MOUTH TWO TIMES DAILY WITH MORNING AND EVENING MEAL 60 tablet 01/24/2024 01/23/2025 Active insulin glargine (Lantus/Semglee) 100 units/mL pen INJECT 33 UNITS SUBCUTANEOUSLY AT BEDTIME 15 mL 01/24/2024 01/23/2025 Active Insulin Pen Needle 32G X 4 MM MISC USE TO INJECT INSUILN FOUR TIMES DAILY 100 Each 01/24/2024 01/23/2025 Active insulin lispro (HumaLOG;ADMelog) 100 UNIT/ML pen INJECT 10 UNITS SUBCUTANEOUSLY THREE TIMES DAILY BEFORE MEALS. HOLD IF GLUCOSE < 140 15 mL 01/24/2024 01/23/2025 Active Active Problems Problem Noted Date Diagnosed Date Cellulitis, unspecified cellulitis site 01/19/20 Proctitis 01/19/2024 Osteomyelitis, unspecified site, unspecified typ e 01/19/2024 Social History Tobacco Use Types Packs/Day Years Used Date Smoking Tobacco: Never Assessed AUDIT-C Answer Date Recorded Q1: How often do you have a drink containing alcohol? Never 01/20/2024 Q2: How many drinks containi ng alcohol do you have on a typical day when you are drinking? Patient does not drink Q3: How often do you have si x or more drinks on one occasion? Never 01/20/2024 Overall Financial Resource Strain (CARDIA) Answe r Date Recorded How hard is it for you to pa y for the very basics like food, housing, medical care, and heating? Somewhat hard 01/20/2024 [facility] [place] of Occupat ional Health - Occupational Stress Questionnaire Answer Date Recorded Do you feel stress - tense, restless, nervous, or anxious, or unable to sleep at night because your mind is troubled all the time - these days? To some extent 01/20/2024 Hunger Vital Sign Answer Date Recorded Within the past 12 months, y ou worried that your food would run out before you got the money to buy more. Never true 01/20/20 24 Within the past 12 months, t he food you bought just didn't last and you didn't have money to get more. Never true 01/20/2024 PRAPARE - Transportation Answer Date Re corded In the past 12 months, has l ack of transportation kept you from medical appointments or from getting medications? No 10/2023 In the past 12 months, has l ack of transportation kept you from meetings, work, or from getting things needed for daily living? No 01/20/2024 Housing Stability Vital Sign Answer Conrad e Recorded In the last 12 months, was t here a time when you were not able to pay the mortgage or rent on time? No 01/20/2024 In the last 12 months, how many places have you lived? 1 01/20/2024 In the last 12 months, was t here a time when you did not have a steady place to sleep or slept in a skilled nursing (including now)? No 01/20/2024 Sex and Gender Information Value Date Recorded Sex Assigned at Female 01/21/2024 6:54 AM CDT Gender Identity Female 01/21/2024 6:54 AM CDT Sexual Orientation Straight 01/21/2024 7: 06 AM CDT Last Filed Vital Signs Vital Sign Reading Time Taken Comments Blood Pressure 129/66 01/24/2024 8:47 PM CDT Pulse 75 01/24/2024 8:47 PM CDT Temperature 36.5 C (97.7 F) 01/24/2024 8:47 PM CDT Respiratory Rate 18 01/24/2024 8:47 PM CDT Oxygen Saturation 98% 01/24/2024 8:47 PM CDT Inhaled Oxygen Concentration - - Weight 83 kg (183 lb) 01/20/2024 5:08 PM CDT Height 188 cm (6' 2 ) 01/20/2024 5:08 PM CDT Body Mass Index 23.5 01/20/2024 5:08 PM CDT Plan of Treatment Health Maintenance Due Date Last Done Comments MAMMOGRAM 1982 PAP SMEAR 1982 HIV SCREENING 1997 DTAP/TDAP/TD VACCINES (1 - Tdap) 2001 HEPATITIS B VACCINE (1 of 3 - 19+ 3-dose series) 2001 PNEUMOCOCCAL VACCINE (1 of 2 - PCV) 2001 COVID-19 VACCINE (2023-2 5 season) 2024 INFLUENZA VACCINE (#1) 2024 DEPRESSION SCREENING 06/17/2024 ZOSTER VACCINE (1 of 2) 2032 HEPATITIS C SCREENING Completed 09/25/2017 HIB VACCINE Aged Out No longer eligi ble based on patient's age to complete this topic HPV VACCINE Aged Out No longer eligi ble based on patient's age to complete this topic MENINGOCOCCAL (Group B) VACC INE SHARED DECISION-MAKING Aged Out No longer eligibl e based on patient's age to complete this topic MENINGOCOCCAL GROUPS A/C/Y/W VACCINE Aged Out No longer eligible b ased on patient's age to complete this topic Advance Directives * Full Code (Latest Code Status on File) Date Activated Date Inactivated Comments 01/20/2024 1:14 PM 01/25/2024 2:42 AM Care Teams Integration Aide Relationship Specialty Start Date End Date Anjum Araiza MD [address] [place] [phone] PCP - General Family Medicine 01/24/24
--- OUTSIDE RECORDS SUMMARY | 2024-09-14 17:39 | XMS_ITS | Encounter Summary ---
Author Organization [facility] Address [address] 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
--- OUTSIDE RECORDS SUMMARY | 2024-09-14 17:39 | XMS_ITS | Data Portability ---
Author Organization [facility], [address] [facility] ([place]) Address [address] [place] [address] Care Team Providers Care Material Damage Adjuster Name Role Phone ELOISA DELA CRUZSON Primary Care Provider [phone] Assessment Encounter Date Assessment Date Assessment LastModified by Organization Details LastModified Time 08/24/2024 08/24/2024 1. Spinal cord infarct in May of 2023. She has had extensive physical therapy and that has not been helpful. Unfortunately, prognosis is not good for a full recovery of leg strength. This is explained to the patient and her and they expressed understanding. The infarct may have occurred due to emboli from the thrombus. The infarct could also have occurred due to clamping of the artery of Adamkiewicz. The patient has antiphospholipid antibody syndrome which increases chances of thrombus formation. I encouraged her to research clinical trials for spinal cord injuries and she expressed understanding. No further neurologic workup is needed. I personally spent a total of 1 hour on the patient on this date of service including both rxuy-jf-azoc and uoo-snaf-xi-face time excluding any separately reportable services. ROXIE Not available 08/28/2024 21:21:19 Plan of Treatment Reminders Order Date Submit Date Provider Last Modified By Organization Details Last Modified Time Details Appointments None record ed. Lab None record ed. Referral None record ed. Procedures None record ed. Surgeries None record ed. Imaging None record ed. Medication Orders None record ed. Patient TargetsNo targets recorded. Patient InstructionsNo instructions recorded. Reason for Referral None Reported. Problems Name Problem SNOMED Code Status Onset Date Resolution Date Notes Provider Name and Address Organization Details Recorded Time Infarction of spinal cord 578761757 Active 2024 Amy Fontenot MD [address] [place] [address], [phone], [facility] 5 18:26:49 Antiphospholip id syndrome 40515630 Active 2024 Amy Fontenot MD [address] [place] [address], [phone], [facility] 5 18:28:53 Problem Notes None recorded. Medical Equipment None Reported. Allergies Allergen ID Allergen Name Allergen Category Reaction Reaction Severity Criticality Documentation Date Start Date Code Code System Note Provider Name and Address Organization Details Recorded Time 474827 azithromy brielle medicatio n dyspnea Not available Not available 07/15/20232016 25355 RxNorm React ion: Hives ; Short ness of breat h; Not Available Not Available Not Available 451642 amoxicill in trihydrat e medicatio n dyspnea Not available Not available 07/15/20232022 28015 8 RxNorm React ion: Short ness of breat h; Comme nt: Annot ation s: EILER S (MILENA) , HAM TY 2022 10:05 AM CAUSE S YEAST INFEC TION; ; Not Available Not Available Not Available Vitals Date Recorded Heart rate Oxygen saturation Oxygen saturation in Arterial blood by Pulse oximetry Systolic blood pressure Diastolic blood pressure Provider Name and Address Organization Details Last Updated DateTime 5 105 /min 99 % 99 % 120 mm[Hg] 80 mm[Hg] Aneta Smith [facility] 5 15:37:36 Social History None recorded. Functional Status None recorded. Mental Status None recorded. Family History Nothing Reported. Medical History No medical history recorded. Gynecological HistoryNo gynecological history recorded. Obstetrics History GPAL:G 0 P 0 0 0 0 Past Encounters Encounter ID Performer Location Encounter Start Date Encounter Closed Date Diagnosis/Indication Diagnosis SNOMED-CT Code Diagnosis ICD10 Code Diagnosis Note [id number] Amy Fontenot MD [address] [facility] ([place]) [address] [place] [address] 08/24/2024 15:27:24 08/24/2024 17:37:52 Infarction of spinal cord 765401480 G95.11 Antiphosph olipid syndrome 36392019 D68.61 Health Concerns Section Related Observation LastModified by Organization Detai ls LastModified Time None Recorded Concern Status LastModified by Organization Details LastModified Time None Recorded Advance Directives Directive None Recorded Payers Encounter Date Sequence Insurance Name Policy Number Policy [place] Covered Member ID Salinas Member ID Guarantor Name 08/24/2024 1 [facility] Jill Villa [id number] Jill Villa 08/24/2024 2 [place] [facility] [place] OF PUBLIC AID Jill Villa [id number] Jill Villa Notes Date Note Type Note Provider Name and Address Organization Details Recorded Time text/html The patient is a 44 -year-old right-handed female who presents today for evaluation of weakness in her legs. She was admitted to the hospital on June 062022, with bilateral lower extremity ischemia, PAD status post NICKI/EIA stent. She was admitted to the hospital for aortobifemoral bypass with a Dacron graft. She had greater than 90% luminal narrowing. This was complicated by stenosis and thrombosis of the proximal anastomosis. She was taken back to the OR for revision and thromboendarterectomy of the bypass graft with supraceliac clamping. She also required a right lower extremity thrombectomy. Her postoperative course was complicated by acute spinal cord ischemia and an acute stroke in the right basal ganglia. She had extensive infarction of the left kidney with acute kidney injury, ischemic gastropathy, and ischemic hepatopathy. There was also an infarct in the right renal inferior pull. She has antiphospholipid antibody syndrome. She eventually went to rehab. She states that she can feel temperature pain and touch in her legs and she has urinary retention although she can urinate. She has neurogenic bladder. She continues to smoke. She has not regained strength in her legs. MRI scan of the brain and spine were personally reviewed by me and with the patient. There was no compressive lesion. I did an extensive review of the [facility] records including operative reports, consultations, progress notes, and H&P.SKK Amy Fontenot MD [address] [facility], [place], [address], [facility] 08/28/2024 21:21:29 OBGyn Episode No OBEpisode recorded.
--- OUTSIDE RECORDS SUMMARY | 2024-09-14 17:39 | XMS_ITS | Clinical Summary ---
Author Organization [facility] Address [address] [place] [address] Phone Care Team Providers Care Tubing Assembler Name Role Phone Anjum Araiza MD Primary Care Provider Allergies Active Allergy Reactions Criticality Noted Date Comments Amoxicillin Other (See Comments) 03/04/2024 Yeast infection Azithromycin Hives High 03/04/2024 Medications aspirin (ZACHARIAH CHEWABLE) 81 mg Tablet, Chewable Take 81 mg by mouth daily. Active citalopram (CeleXA) 20 mg tablet Take 20 mg by mouth daily. Active traZODone (DESYREL) 100 mg tablet Take 100 mg by mouth daily at bedtime. Active melatonin 5 mg Tablet Take 10 mg by mouth daily at bedtime. Active nortriptyline (PAMELOR) 10 mg capsule Take 10 mg by mouth daily at bedtime. Active atorvastatin (LIPITOR) 20 mg tablet Take 20 mg by mouth daily. Active HYDROcodone-rowena taminophen (NORCO) 5-325 mg tabletIndicatio ns:Dry gangrene (CMS/HCC) Take 1 Tablet by mouth every 4 hours as needed for Moderate Pain. 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 Necrotic toes 03/04/2024 PAD (peripheral artery disease) 03/04/2024 Paraplegia 03/04/2024 Neurogenic bladder 03/04/2024 Encounters Date Type Department Care Team Description 09/08/2024 External Device Data ST[facility] ABSTRACTION Provider, Abstract 08/24/2024 External Device Data [facility] ABSTRACTION Provider, Abstract 08/19/2024 External Device Data [facility] ABSTRACTION Provider, Abstract 08/18/2024 External Device Data [facility] ABSTRACTION Provider, Abstract 08/05/2024 External Device Data [facility] ABSTRACTION Provider, Abstract 07/28/2024 External Device Data ST[facility] ABSTRACTION Provider, Abstract 07/21/2024 External Device Data [facility] ABSTRACTION Provider, Abstract 07/14/2024 External Device Data ST[facility] ABSTRACTION Provider, Abstract 07/08/2024 External Device Data [facility] ABSTRACTION Provider, Abstract 07/08/2024 External Device Data [facility] ABSTRACTION Provider, Abstract 06/30/2024 External Device Data ST[facility] ABSTRACTION Provider, Abstract 06/16/2024 External Device Data ST[facility] ABSTRACTION Provider, Abstract from Last 3 Months Social History Tobacco Use Types Packs/Day Years Used Date Smoking Tobacco: Never Assessed Feeling Safe Answer Date Recorded Are you in a relationship wi th someone who hurts you emotionally and/or physically? No 03/04/2024 Comments Unknown Sex and Gender Information Value Date Recorded Sex Assigned at Not on file Legal Sex Female 5:29 AM CDT Gender Identity Not on file Sexual Orientation Not on file Last Filed Vital Signs Vital Sign Reading Time Taken Comments Blood Pressure 147/71 03/07/2024 4:08 PM CDT Pulse 95 03/07/2024 4:08 PM CDT Temperature 36.5 C (97.7 F) 03/07/2024 4:08 PM CDT Respiratory Rate 16 03/07/2024 4:08 PM CDT Oxygen Saturation 99% 03/07/2024 4:08 PM CDT Inhaled Oxygen Concentration - - Weight 82.1 kg (181 lb) 03/04/2024 6:00 PM CDT Height 190.5 cm (6' 3 ) 03/04/2024 4:00 PM CDT Body Mass Index 22.62 03/04/2024 4:00 PM CDT Plan of Treatment Health Maintenance Due Date Last Done Comments Pre-Diabetes and Diabetes Screening 1982 DTAP/TDAP/TD VACCINES (1 - Tdap) 2001 HEPATITIS B VACCINES (1 of 3 - 19+ 3-dose series) 2001 HPV/Cotest (21-29) 2003 CERVICAL CANCER SCREENING 2012 HPV/Cotest (30-65) 2012 PAP SMEAR 2012 BREAST CANCER SCREENING 2022 INFLUENZA VACCINE (#1) 2024 HPV VACCINES Aged Out No longer eligi ble based on patient's age to complete this topic Insurance [place] [address] [place] [id number] RX [employer] RX Member Subscriber Plan / Payer (Ef fective 2024-Present) Name:Bryan Villa Relation to Subscriber:Self Name:Allen Bryan Subscriber ID:Not on file Payer ID:Not on file Group ID:[id number] Type:RX Commercial Address: [address] Advance Directives For more information, please contact: [phone] * Full Code (Latest Code Status on File) Date Activated Date Inactivated Comments 03/04/2024 4:49 PM 03/07/2024 9:32 PM Care Teams Tubing Assembler Relationship Specialty Start Date End Date Anjum Araiza MD [address] [place] [phone] PCP - General Family Practice 03/07/24
--- OUTSIDE RECORDS SUMMARY | 2024-09-14 17:40 | XMS_ITS | Clinical Summary ---
Author Organization [facility] Address [address] [place] [address] Care Team Providers Care Steward/Stewardess Lounge Name Role Phone Anjum Araiza MD Primary Care Provider Allergies Active Allergy Reactions Criticality Noted Date Comments Azithromycin Rash Low 06/23/2019 Medications insulin glargine 100 UNIT/ML injection (PEN) Inject 50 Units into the skin nightly at bedtime. Active Glucose Blood (BLOOD GLUCOSE TEST ) by In Vitro route 3 (three) times daily with meals. Active Cinnamon 500 MG Tab Take 3 tablets by mouth daily. Active Lactobacillus (FLORAJEN ACIDOPHILUS OR) Take 1 tablet by mouth daily. Active metFORMIN 500 MG tablet Take 500 mg by mouth 2 (two) times daily with meals. Active NON FORMULARY PT STATES TAKES ATIVAN NEEDED Active Active Problems Problem Noted Date Diagnosed Date Abscess, gluteal, right 06/18/2019 Type II diabetes mellitus ([facility]/HCC) Diabetic peripheral neuropathy ([facility]/HCC) Mixed hyperlipidemia Benign essential hypertension Tobacco use disorder Social History Tobacco Use Types Packs/Day Years Used Date Smoking Tobacco: Every Day Cigarettes Smokeless Tobacco: Never Alcohol Use Standard Drinks/Week Comments No 0 (1 standard drink = 0.6 oz pur e alcohol) AUDIT-C Answer Date Recorded Frequency of Alcohol Consumption Never 06/23/2019 Average Number of Drinks Not on file 020 Frequency of Binge Drinking Not on file 12/2019 Comments No Sex and Gender Information Value Date Recorded Sex Assigned at Female 06/23/2019 10:01 AM MATH TEACHER Legal Sex Female 5:56 PM MATH TEACHER Gender Identity Female 06/23/2019 10:01 AM MATH TEACHER Sexual Orientation Not on file Last Filed Vital Signs Vital Sign Reading Time Taken Comments Blood Pressure 129/69 11/11/2022 6:45 PM CDT Pulse 72 11/11/2022 6:45 PM CDT Temperature 36.8 C (98.2 F) 11/11/2022 6:11 PM CDT Respiratory Rate 18 11/11/2022 6:45 PM CDT Oxygen Saturation 99% 11/11/2022 6:45 PM CDT Inhaled Oxygen Concentration - - Weight 91.4 kg (201 lb 6.4 oz) 11/11/2022 6:11 P M CDT Height 188 cm (6' 2 ) 11/11/2022 6:11 PM CDT Body Mass Index 25.86 11/11/2022 6:11 PM CDT Plan of Treatment Upcoming Encounters Date Type Department Care Team (Late st Contact Info) Description 12/03/2024 1:20 PM CDT Office Visit [facility] - [address], [address] [place] [id number] Darcy Bernal MD [address] [place] [address] Health Maintenance Due Date Last Done Comments Cervical Cancer Screening Pap Smear (Age 30 to 64) Every 3 Years 1982 Kidney Health Evaluation 1982 Hemoglobin A1C 1982 Lipid Panel 1982 Annual Physical 1985 Pneumococcal Vaccine: Pediatrics (0 to 5 Years) and At-Risk Patients (6 to 64 Years) (1 of 2 - PCV) 1988 Diabetes: Retinopathy Eye Exam 2000 DTaP, Tdap and Td Vaccines (1 - Tdap) 2001 02/07/1987, 07/19/1986, 12/18/1983, Additional history exists Hepatitis B Vaccines (1 of 3 - 19+ 3-dose series) 2001 Cervical Cancer Screening Pap with HPV Testing (Age 30 to 64) Every 5 Years 2012 Cervical Cancer Screening with HPV 2012 Mammogram Screening 2022 COVID-19 Vaccine (2023- season) 2024 Hepatitis C Completed 09/25/2017 HPV Vaccines Aged Out No longer eligi ble based on patient's age to complete this topic Meningococcal B Vaccine Aged Out No l onger eligible based on patient's age to complete this topic Meningococcal Vaccine Aged Out No eelazar beck eligible based on patient's age to complete this topic RSV Immunizations Under 20 Months Aged Out No longer eligible based on patient's age to complete this topic Procedures Procedure Name Priority Date/Time Associated Diagnosis Comments HEPATITIS PANEL,ACUTE Routine 09/25/2017 1:19 PM CDT from Last 3 Months or Most Recently Relevant to Health Maintenance Results * HEPATITIS PANEL,ACUTE (09/25/2017 1:19 PM CDT) HEPATITIS B SURFACE AG NON-REACTI VE NON-REACT YOUSIF 09/27/2017 10:11 AM CDT [facility] Comment:HBsAg NOT DETECTED. HEP B CORE IGM NON-REACTI VE NON-REACT YOUSIF 09/27/2017 10:11 AM CDT [facility] Comment: IgM ANTI HBc NOT DETECTED. DOES NOT EXCLUDE THE POSSIBILITY OF EXPOSURE TO OR INFECTION WITH HBV. NO RETEST REQUIRED. HAV IGM NON-REACTI VE NON-REACT YOUSIF 09/27/2017 10:11 AM CDT [facility] Comment: IgM ANTI HAV NOT DETECTED. DOES NOT EXCLUDE THE POSSIBILITY OF EXPOSURE TO OR INFECTION WITH HAV. LEVELS OF IgM ANTI HAV MAY BE BELOW THE CUTOFF IN EARLY INFECTION. HEPATITIS C AB NON-REACTI VE NON-REACT YOUSIF 09/27/2017 10:11 AM CDT [facility] Comment: ANTIBODIES TO HCV NOT DETECTED. DOES NOT EXCLUDE THE POSSIBILITY OF EXPOSURE TO HCV. 09/25/2017 1:19 PM CDT 09/25/2017 1:21 PM CDT us Generic Conversion [facility] Final R esult [facility] [address] [place] [address], [id number] from Last 3 Months or Most Recently Relevant to Health Maintenance Insurance MEDICAID MEDICAID Care Teams Steward/Stewardess Lounge Relationship Specialty Start Date End Date Anjum Araiza MD [address] [place] [address] PCP - General FAMILY PRACTICE 06/18/19
== END 2024-09-14 16:40 | disposition home or self-care (01) ==
LOC: CHSLAB 16:41
PROVIDERS: PCP Family Medicine; Visit Provider Family Medicine
DX: K92.1 Melena (principal)
CPT/HCPCS: 36415; 85025

== ENCOUNTER 2024-11-15 22:50 | Emergency (ER) | payer OTHER, BC, MEDICAID, SELFPAY ==
--- NOTE | ~2024-11-15 | CT_ITS ---
Clinical Indication: Elevated d-dimer, chest pain CT Scan of the Chest with Contrast: Technique: Contiguous sections were acquired throughout the chest after intravenous administration of 100 cc of Omnipaque 350. Dose reduction technique was used on this scan by utilizing automated expos ure control and iterative reconstruction technique. The dose-length product (DLP) was 594.67 mGy-cm. Findings: There is no evidence of any significant mediastinal, hilar or axillary lymphadenopathy. There is no f illing defect in the pulmonary arterial tree to suggest pulmonary embolus. There is no evidence of ao rtic dissection or aneurysm. There is no evidence of pleural or pericardial effusion. The lungs are clear. No pulmonary nodules or infiltrates are noted. Images through the upper abdomen reveal no abnormalities. Impression: No evidence of pulmonary embolus, aortic dissection, or aortic aneurysm. Clear lungs. Reviewed, dictated and finalized at [facility]. Impression: No evidence of pulmonary embolus, aortic dissection, or aortic aneurysm. Clear lungs.
--- NOTE | ~2024-11-15 | XR_ITS ---
Portable chest x-ray Comparison: 03/22/2024 Clinical History: Shortness of breath Findings: Lungs are clear, without focal consolidation or pleural effusion. Cardiomediastinal silho uette is stable. Bones and soft tissues are unremarkable. Impression: Normal chest. Reviewed, dictated and finalized at location . Impression: Normal chest.
--- NOTE | ~2024-11-15 | CT_ITS ---
Non-contrast CT scan of the Abdomen and Pelvis Clinical indication: Abdominal pain Technique: 2.5 mm axial scans were obtained through the abdomen and pelvis without intravenous or or al contrast. Dose reduction technique was used on this scan by utilizing automated exposure control a nd iterative reconstruction technique. The dose-length product (DLP) was 734.56 mGy-cm. COMPARISON: 04/19/2024 Findings: Images through the lung bases reveal no abnormalities. Probable punctate nonobstructing right renal stone. No ureteral stone or hydronephrosis on either tejas e. Left kidney is relatively atrophic as compared to the right. The liver, spleen, pancreas, gallbladder, and right adrenal gland appear normal. Low-density left adr enal nodule is stable from prior exam, compatible with adenoma. Aortobiiliac bypass is present.. There is no evidence of bowel obstruction. Possible mild wall thickening of the distal sigmoid colon/ rectum. Images through the pelvis were performed. There is no evidence of ascites or lymphadenopathy. Urinary bladder unremarkable. No pelvic mass seen. No ascites. Impression: Possible thickening of the distal sigmoid/rectum. Correlate for infectious/inflammatory colitis versu s underdistention. Punctate nonobstructing right renal stone. Relatively atrophic left kidney. Stable left adrenal adenoma. Reviewed, dictated and finalized at location . Impression: Possible thickening of the distal sigmoid/rectum. Correlate for infectious/infl ammatory colitis versus underdistention. Punctate nonobstructing right renal stone. Relatively atrophic left kidney. Stable left adrenal adenoma.
[2024-11-15 22:50] VITALS: BP 164/91; PULSE 94; RESP 18; TEMP 36.4; O2SAT 99
--- NOTE | 2024-11-15 22:52 | ED_ITS ---
HPI - Nausea/Vomiting/Diarrhea General Chief complaint: Nausea/Vomiting/Diarrhea Stated complaint: Vomiting Time Seen by Provider: 11/15/24 22:51 Source: patient Mode of arrival: ambulatory Limitations: no limitations History of Present Illness HPI Narrative: Patient is a 44-year-old female with paraplegia from a year and a half ago complications of an aortic surgery here with shortness of breath / chest heaviness as well as acute nausea and abdominal discomfort in lower abdomen. She has been having problems for the past 3 days. She also has a complaint of anxiety at this time due to some life stressors. She has been panicky. Her urine has been cloudy. She gets UTIs easily as she does straight cath. She has not had a bowel movement in 3-4 days. prior DVT but is not currently on anticoagulation. MD elicited complaint: nausea, vomiting and abdominal pain Pertinent past history: other ( Paraplegia) Onset (ago): day(s) ( 3) Description of vomiting: watery Description of diarrhea: other ( none) Associated nausea: Yes Associated abdominal pain: Yes Location of pain: diffuse, LUQ, RLQ and LLQ Radiation: diffuse Pain consistency: constant Severity: mild Pain scale (0-10): 3 Quality: aching and sharp Exacerbating factors: none Relieving factors: none Context: other ( Patient having 3 days of shortness of breath and abdominal pain and she said possibly panic mixed and is causing many of her symptoms; she is having cloudy urine specifically) Associated symptoms: myalgias, malaise and anxiety Treatment prior to arrival: none Related Data Home Medications ?Medication ?Instructions ?Recorded ?Confirmed ?Last Taken ?Type atorvastatin 20 mg tablet 20 mg PO HS 11/10/23 06/26/24 06/01/24 History aspirin 81 mg tablet 81 mg PO DAILY 02/10/24 06/26/24 06/02/24 History acidophilus 100 million 1 cap PO QAM 05/17/24 06/26/24 06/02/24 History cell-pectin, citrus 10 mg capsule cranberry 500 mg capsule 500 mg PO QAM 05/17/24 06/26/24 06/02/24 History cholecalciferol (vitamin D3) 325 325 mcg PO WEEKLY 11/10/24 Unknown History mcg (13,000 unit) capsule Allergies Allergy/AdvReac Type Severity Reaction Status Date / Time azithromycin Allergy Unknown Hives Verified 11/16/24 02:10 amoxicillin AdvReac Unknown Verified 11/16/24 02:10 Review of Systems 2 Review of Systems: All systems reviewed & are unremarkable except as noted in HPI and below Constitutional: Constitutional: Reports no additional constitutional complaints Eyes: Eyes: Reports no additional eye complaints ENT: Reports system reviewed and no additional complaints, except as documented Cardiovascular: Cardiovascular: Reports no additional cardiovascular complaints Respiratory: Respiratory: Reports no additional respiratory complaints Gastrointestinal: Gastrointestinal: Reports no additional gastrointestinal complaints Genitourinary: Genitourinary: Reports no additional female genitourinary complaints Musculoskeletal: Musculoskeletal: Reports no additional musculoskeletal complaints Integumentary/Breasts: Skin/Breast: Reports system reviewed and no additional complaints, except as docu Neurologic: Reports system reviewed and no additional complaints, except as documented Psychiatric: Psychiatric: Reports no additional psychiatric complaints Endocrine: Endocrine: Reports no additional endocrine complaints Hematologic/Lymphatic: Hematologic/Lymphatic: Reports no additional hematologic/lymphatic complaints Allergic/Immunologic: Allergic/Immunologic: Reports no additional allergic/immunologic complaints [facility] Past Medical History Medical History Ischemic colitis Intractable nausea and vomiting Abnormality of rectum Paraplegia Clostridium difficile diarrhea Neurogenic bladder Hyperlipidemia Deep venous thrombosis Aortic thrombus Diabetic peripheral neuropathy Type 1 diabetes mellitus Spinal cord stroke Surgical History Surgical History History of partial amputation of toe 4th and 5th toe bilaterally History of aorto-femoral bypass [facility] Family History Family History Mother Acute myocardial infarction Diabetes mellitus Hypertension Father History of blood clots Social History Social History Social History: Surrogate medical decision maker: Ml Aguilar, mother. Code status: Full code. Smoking packs per day: 0.33 Smoking cigarettes per day: 6.6 Years smoked: 25 Smoking pack-years: 8.25 Smoking status: Current every day smoker Tobacco type: cigarettes Second hand tobacco smoke exposure: Yes Alcohol intake: former Substance use: current Substance use type: marijuana Other substance usage details: DAILY Do You Feel Safe in your Home?: Yes Lack of Transportation: No Lack of Food: Never True Current Housing: I Have Housing Concerned About Future Housing: No Difficulty Paying Gas/Electric Bills: No Difficulty Paying for Meds: No Currently Unemployed: No Education: Associate Degree Difficulty w/ Childcare or Family Care: No Living arrangements: with family Additional living arrangements comments: Lives with spouse and children in [place]. Spiritual care concerns: No Exam 2 Const: General: healthy appearing Nutritional Appearance: well nourished Orientation/consciousness: patient oriented x3 Limitations: no limitations Other: patient anxious and panicky and crying HENMT: Head: normal to inspection Ears: external ears normal F rowena/Nose/Sinus: Normal external nose present Eyes: Conjunctivae: conjunctivae normal Cornea: corneas normal Pupils: E qual, round and reactive pupils present Neck: Neck: normal visual inspection Chest: Chest palpation & inspection: normal inspection of the chest Resp: Effort & Inspection: normal respiratory effort and not labored A uscultation: clear to auscultation bilaterally and no crackles Cardio: Rate: regular rate Rhythm: regular rhythm Heart sounds: no murmurs GI: Inspection: non-distended GI Palp: Yes Soft to palpation, Yes Tenderness to palpation present (GI) ( diffuse), No Guarding due to palpation present (GI), No Rigid due to palpation, No Hernia present, No Palpable mass present and No Rebound tenderness present Auscultation: normal bowel sounds : General: Yes bladder normal to palpation Back/Spine/Pelvis: Back: no CVA tenderness Skin: General skin exam: normal color Rashes: no rashes Wounds: no wounds Neuro: General: patient oriented x3, No moves all extremities, no meningeal signs and CN's II-XI intact bilaterally Cranial nerves: Yes Nystagmus not present Speech: normal speech Gait exam (Neuro): gait abnormal Other: patient is paraplegic chronically for urine half after surgery Extrem: General: normal to inspection Psych: Mental Status: mental status grossly normal Affect: No normal affect, Sad affect present and Anxious affect present Attitude: cooperative Course Vital Signs Vital signs: Vital Signs Temperature 36.4 C 11/15/24 22:50 Pulse Rate 94 11/15/24 22:50 Respiratory Rate 18 11/15/24 22:50 Blood Pressure 164/91 H 11/15/24 22:50 Pulse Oximetry 99 11/15/24 22:50 Oxygen Delivery Room Air 11/15/24 22:50 Temperature 36.4 C 11/15/24 22:50 Pulse Rate 94 11/15/24 22:50 Respiratory Rate 18 11/15/24 22:50 Blood Pressure 164/91 H 11/15/24 22:50 Pulse Oximetry 99 11/15/24 22:50 Oxygen Delivery Room Air 11/15/24 22:50 MDM - Nausea/Vomiting/Diarrhea MDM Narrative Medical decision making narrative: patient is a 44-year-old female with multiple complaints at this time to include respiratory and GI/ systems. She also has psychiatric care complaints. No suicide or homicide ideation. We will do a workup at this time. Lab Data Attestation: I reviewed the patient's lab results. 11/15/24 23:45 11/15/24 23:45 Labs: Lab Results 11/15/24 11/15/24 11/15/24 Range/Units 23:38 23:44 23:45 WBC 10.7 (4.8-10.8) K/mm3 RBC 4.49 (4.20-5.40) M/mm3 Hgb 13.2 (12.0-15.0) g/dL Hct 40.0 (35.0-49.0) % MCV 89.1 (78.0-102.0) fL MCH 29.4 (27.0-31.0) pg MCHC 33.0 (32-36) g/dL RDW 12.1 (11.6-14.4) % Plt Count 302 (150-420) K/mm3 MPV 10.5 (9.2-11.8) fl Immature Gran % (Auto) 0.7 H (0.0-0.0) % Neut % (Auto) 66.4 (50.0-70.0) % Lymph % (Auto) 25.6 (18.0-42.0) % Lewis % (Auto) 5.3 (2.0-11.0) % Eos % (Auto) 1.5 (1.0-6.0) % Baso % (Auto) 0.5 (0.0-1.0) % Lymph # (Auto) 2.73 (1.10-4.50) K/mm3 Lewis # (Auto) 0.57 (0.10-0.90) K/mm3 Eos # (Auto) 0.16 (0.02-0.50) K/mm3 Baso # (Auto) 0.05 (0.00-0.10) K/mm3 Abs Immat Gran (auto) 0.08 H (0.00-0.00) K/mm3 Absolute Neuts (auto) 7.09 (1.70-7.20) K/mm3 Absolute Nucleated RBC 0.00 (0.00-0.00) K/mm3 Nucleated RBC % 0.0 (0-0.0) % PT 10.0 (9.50-12.1) Seconds INR 0.9 APTT 28.5 (23.9-30.70) Sec D-Dimer 0.94 H* (0.19-0.50) mg/L Sodium 138 (137-145) mmol/L Potassium 3.5 (3.4-5.0) mmol/L Chloride 106 (98-107) mmol/L Carbon Dioxide 21 L (22-30) mmol/L Anion Gap 11 (4-12) mmol/L BUN 15 (7-17) mg/dL Creatinine 1.25 H (0.7-1.0) mg/dL Estim Creat Clear Calc 64 ml/min Estimated GFR 47 L (59 - ) Glucose 195 H (65-110) mg/dL Calculated Osmolality 291 (285-295) mOsm/kg Lactic Acid 1.9 (0.4-2.0) mmol/L Calcium 9.7 (8.4-10.2) mg/dL Total Bilirubin 0.4 (0.2-1.3) mg/dL AST 20 (14-36) U/L ALT 18 (6-35) U/L Alkaline Phosphatase 107 (38-126) U/L Troponin I < 0.012 (0.000-0.034) ng/mL NT-Pro-B Natriuret Pep 381 H (19.9-100) pg/mL Total Protein 7.6 (6.3-8.2) g/dL Albumin 4.3 (3.5-5.1) g/dL Lipase 190 (23-300) U/L Serum HCG, Qual Negative Urine Color Yellow (Yellow) Urine Appearance Clear (Clear) Urine pH 6.0 (5.0-8.0) Ur Specific [place] 1.025 H (1.010-1.020) Urine Protein 1+ H (Negative) Urine Glucose (UA) Negative (Negative) Urine Ketones Trace H (Negative) Ur Blood (Man) Negative (Negative) Urine Nitrate Negative (Negative) Urine Bilirubin Negative (Negative) Urine Urobilinogen 1.0 (0.2-1.0) mg/dL Leukocyte Esterase Rfl Negative (Negative) HANY/UL Ur Squamous Epith Cells Many H (Few) /hpf Imaging Data Attestation: I personally reviewed and interpreted this imaging study as follows: My impression: chest x-ray is negative for acute process with my reading and pending final reading with radiologist Radiologist's impression: CTA of the chest for PE was negative for acute process CT scan of the abdomen and pelvis shows colitis of the sigmoid colon ECG Data EKG #1: Attestation: I personally reviewed and interpreted this ECG as follows: ECG completion date: 11/16/24 ECG completion time: 00:03 EKG Interpretation: normal rate, sinus rhythm, no ectopy, no ST changes, normal QRS, normal QT and NL axis Discharge Plan Discharge Clinical Impression: Colitis, Dehydration, NICOLAS (acute kidney injury) Patient Disposition: Home Condition: Stable Instructions: Antibiotic Form, Colitis (ED) Patient Language: Croatian Prescriptions: New ciprofloxacin HCl 500 mg tablet 500 mg PO BID 7 Days Qty: 14 0RF metronidazole 500 mg tablet 500 mg PO TID 7 Days Qty: 21 0RF No Action cholecalciferol (vitamin D3) 325 mcg (13,000 unit) capsule 325 mcg PO WEEKLY polyethylene glycol 3350 [Miralax] 17 gram powder in packet 17 g PO BID 30 Days Qty: 14 3RF atorvastatin 20 mg tablet 20 mg PO HS aspirin 81 mg Tablet 81 mg PO DAILY cranberry 500 mg Capsule 500 mg PO QAM Rx Instructions: administer with meals acidophilus-pectin, citrus 100 million cell-10 mg Capsule 1 cap PO QAM bisacodyl 10 mg Suppository 10 mg RECTAL QAM Qty: 30 0RF polyethylene glycol 3350 [Miralax] 17 gram Powder In Packet 17 g PO QAM Qty: 30 0RF metronidazole 0.75 % (37.5mg/5 gram) gel 1 appful vaginal HS 4 Days Qty: 70 0RF Follow-up/Referrals: Jose G,MD Anjum [Primary Care Provider] - Time of Disposition: 02:36
--- OUTSIDE RECORDS SUMMARY | 2024-11-15 22:52 | XMS_ITS | Encounter Summary ---
Author Organization [facility] Address [address] [facility] 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
--- OUTSIDE RECORDS SUMMARY | 2024-11-15 22:52 | XMS_ITS | Clinical Summary ---
Author Organization [facility] Address [address] [place] [address] Phone Care Team Providers Care Traffic Maintenance Officer Name Role Phone Anjum Araiza MD Primary Care Provider [phone] Allergies No known active allergies Medications citalopram [...] mg by mouth every 6 hours. rx [id number] Active pantoprazole (PROTONIX) 40 MG Tablet Delayed Response Take 40 mg by mouth daily. 4948982 Active Probiotic Product (Daily Probiotic) Capsule Take 1 Tablet by mouth daily. Active metoclopramide (REGLAN) 10 MG Tablet Take 10 mg by mouth 2 times daily. 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
--- OUTSIDE RECORDS SUMMARY | 2024-11-15 22:52 | XMS_ITS | Clinical Summary ---
Author Organization [facility] Address [address] [place] [address] Phone Care Team Providers Care Return Clerk Name Role Phone Anjum Araiza MD [...] Encounters Date Type Department Care Team Description 11/05/2024 External Device Data [facility] ABSTRACTION Provider, Abstract 11/05/2024 External Device Data [facility] ABSTRACTION Provider, Abstract 10/27/2024 External Device Data [facility] ABSTRACTION Provider, Abstract 09/08/2024 External Device Data [facility] ABSTRACTION Provider, [...] 6:00 PM CDT Height 190.5 cm (6' 3) 03/04/2024 4:00 PM CDT Body Mass Index [...] age to complete this topic Insurance MEDICAID [place] [facility] [id number] [facility] Address: [facility] [address] [place] [address] RX [employer] RX Member Subscriber Plan / Payer (Ef fective 2024-Present) Name:Bryan Del Real Relation to Subscriber:Self Name:Byran Del Real Subscriber ID:Not on file Payer ID:Not on file Group ID:[id number] Type:RX Commercial Address: [address] Advance Directives For more information, please contact: [phone] * Full Code (Latest Code Status on File) Date Activated Date Inactivated Comments 03/04/2024 4:49 PM 03/07/2024 9:32 PM Care Teams Return Clerk Relationship Specialty Start Date End Date Anjum Araiza MD [address] [place] [phone] PCP - General Family Practice 03/07/24
--- OUTSIDE RECORDS SUMMARY | 2024-11-15 22:53 | XMS_ITS | Data Portability ---
Author Organization [facility], [address] [facility] Address [address] [place] [address] Care Team Providers Care Estimator Paperboard Boxes Name Role Phone SEAN DELA CRUZ Primary Care Provider [phone] Assessment Encounter Date Assessment Date Assessment LastModified [...] on this date of service including both hdxl-jf-ippv and llq-jngw-zh-face time excluding any separately reportable services. ROXIE [email or web address] Not available 08/28/2024 21:21:19 Plan of Treatment [...] instructions recorded. Reason for Referral None Reported. Results Created Date Observation Date Name Description Value Unit Range Abnormal Flag Note LastModifiedBy Organization Detail LastModifiedTime 10/11/19 25 02/06/2021 imagi ng/di agnos tic resul t No observ ation record ed. [email or web address] Not Available 01:40:12 Result Notes None recorded. Problems Name Problem SNOMED Code Status Onset Date Resolution Date Notes Provider Name and Address Organization Details Recorded Time Infarction of spinal cord 347517464 Active 2024 Amy Fontenot MD [address] [place] [address], [phone], [facility] 5 18:26:49 Antiphospholip id syndrome 19170833 Active 2024 Amy Fontenot MD [address] [place] [address], [phone], [facility] 5 18:28:53 Problem Notes None recorded. Medical Equipment None Reported. Allergies Allergen ID Allergen Name Allergen Category Reaction Reaction Severity Criticality Documentation Date Start Date Code Code System Note Provider Name and Address Organization Details Recorded Time 557711 azithromy brielle medicatio n dyspnea Not available Not available 07/15/20232016 92080 RxNorm React ion: Hives ; Short ness of breat h; Not Available [facility] 4 23:36:31 234793 amoxicill in trihydrat e medicatio n dyspnea Not available Not available 07/15/20232022 77525 8 RxNorm React ion: Short ness of breat h; Comme nt: Annot ation s: YOVANNY S (MILENA) , HAM TY 2022 10:05 AM CAUSE S YEAST INFEC TION; ; Not Available [facility] 4 23:36:34 Vitals Date Recorded Heart rate Oxygen saturation Oxygen saturation in Arterial blood by Pulse oximetry Systolic blood pressure Diastolic blood pressure Provider Name and Address Organization Details Last Updated DateTime 5 105 /min 99 % 99 % 120 mm[Hg] 80 mm[Hg] Aneta Luis [facility] 5 15:37:36 Social History None recorded. Functional Status None recorded. Mental Status None recorded. Family History Nothing Reported. Medical History No medical history recorded. Gynecological HistoryNo gynecological history recorded. Obstetrics History GPAL:G 0 P 0 0 0 0 Past Encounters Encounter ID Performer Location Encounter Start Date Encounter Closed Date Diagnosis/Indication Diagnosis SNOMED-CT Code Diagnosis ICD10 Code Diagnosis Note [id number] Amy Fontenot MD [address] [facility] [address] [place] [address] 08/24/2024 15:27:24 08/24/2024 17:37:52 Infarction of spinal cord 322223358 G95.11 Antiphosph olipid syndrome 58787598 D68.61 Health Concerns Section Related Observation LastModified by Organization Detai ls LastModified Time None Recorded Concern Status LastModified by Organization Details LastModified Time None Recorded Advance Directives Directive None Recorded Payers Insurance Date Sequence Insurance Name Policy Number Policy [place] Covered Member ID Salinas Member ID Guarantor Name 08/29/[address] [facility] [id number] Jill Villa 08/24/2024 2 [place] [facility] Jill Villa [id number] Jill Villa Notes Date Note Type Note Provider Name and Address Organization Details Recorded Time 5 text/html The patient is a 44 -year-old [...] I did an extensive review of the [facility] records including operative reports, consultations, progress notes, and [email or web address] Amy Fontenot MD [address] [facility], [place], [address], [place] [facility] 08/28/2024 21:21:29 OBGyn Episode No OBEpisode recorded.
--- OUTSIDE RECORDS SUMMARY | 2024-11-15 22:53 | XMS_ITS | Clinical Summary ---
Author Organization [facility] [employer] Address [address] [place] [address] Care Team Providers Care Windows Systems Architect Name Role Phone Anjum Araiza MD Primary Care Provider [phone] Source Comments [facility] [employer],non-owned Affiliates and Associated Physician Practices is amultiple site organization consisting of ambulatory clinics and hospital sitesin [place], [place], [place] and [place]. This disclosure is being madepursuant to the Care Everywhere program and may not contain all information available regarding this patient. Last updated 18.[facility] [employer] Allergies Active Allergy Reactions Criticality Noted Date Comments Amoxicillin Other 01/20/2024 Yeast infections Azithromycin Rash Medium 01/20/2024 Medications * Be aware that medications may not be up to date on this document. Alwaysverify current medications with the patient. atorvastatin (Lipitor) 20 MG tablet Take 1 [...] by mouth once daily Active Melatonin 10 MGIndications: Insomnia Take 10 (ten) mg by mouth at bedtime Reasons: Trouble Sleeping Active oxyCODONE-acet aminophen (Percocet) 5-325 MG tablet Take 1 (one) tablet by mouth every 6 hours as needed for Pain Active pregabalin (Lyrica) 50 MG capsule Take 1 (one) capsule by mouth 3 times daily Active insulin glargine (Lantus/Semgle e) 100 units/ml injection Inject 33 (thirty three) Units subcutaneously at bedtime 10 mL 4 Active carvedilol (Coreg) 6.25 MG tablet TAKE 1 TABLET BY MOUTH TWO TIMES DAILY WITH MORNING AND EVENING MEAL 60 tablet 4 025 Active insulin glargine (Lantus/Semgle e) 100 units/mL pen INJECT 33 UNITS SUBCUTANEOUSLY AT BEDTIME 15 mL 4 025 Active Insulin Pen Needle 32G X 4 MM MISC USE TO INJECT INSUILN FOUR TIMES DAILY 100 Each 4 025 Active insulin lispro (HumaLOG;ADMel og) 100 UNIT/ML pen INJECT 10 UNITS SUBCUTANEOUSLY THREE TIMES DAILY BEFORE MEALS. HOLD IF GLUCOSE < 140 15 mL 4 025 Active Active Problems Problem Noted Date Diagnosed [...] medical care, and heating? Somewhat hard 01/20/2024 [facility] - Occup[facility] Stress [...] place to sleep or slept in a detention (including now)? No 01/20/2024 Comments Unknown Sex and Gender Information Value Date Recorded Sex Assigned at Female 01/21/2024 6:54 AM CDT Legal Sex Female 7:06 AM CDT Gender Identity Female 01/21/2024 6:54 [...] 5:08 PM CDT Height 188 cm (6' 2) 01/20/2024 5:08 PM CDT Body Mass Index 23.5 01/20/2024 5:08 PM CDT Plan of Treatment Health Maintenance Due Date Last Done Comments MAMMOGRAM 1982 PAP SMEAR 1982 HIV SCREENING 1997 DTAP/TDAP/TD VACCINES (1 - Tdap) 2001 HEPATITIS B VACCINE (1 of 3 - 19+ 3-dose series) 2001 PNEUMOCOCCAL VACCINE (1 of 2 - PCV) 2001 COVID-19 VACCINE (2023-2 5 season) 2024 DEPRESSION SCREENING 06/17/2024 INFLUENZA VACCINE (Season Ended) 2025 ZOSTER VACCINE (1 of 2) 2032 HEPATITIS [...] age to complete this topic Insurance [place] - [place] [facility] * Guarantor: BRYAN VILLA Account Type Relation to Patient Date of Phone Billing Address Personal/Family [address] [place] [address] [facility] MEDICAID - [place] * Guarantor: BRYAN VILLA Account Type Relation to Patient Date of Phone Billing Address Personal/Family [address] [place] [address] MED[place]ID [place] Advance Directives * Full Code (Latest Code Status on File) Date Activated Date Inactivated Comments 01/20/2024 1:14 PM 01/25/2024 2:42 AM Care Teams Windows Systems Architect Relationship Specialty Start Date End Date Anjum Araiza MD [address] [place] [phone] PCP - General Family Medicine 01/24/24
--- NOTE | 2024-11-15 22:57 | PC.NURSE ---
DR SANTILLAN AT THE BEDSIDE
--- NOTE | 2024-11-15 23:05 | ECG_ITS ---
Test Date: 2024-11-16 00:00:09 Measurements Intervals [place] Rate: 89 P: 53 MS: 184 QRS: 15 QRSD: 98 T: 30 QT: 353 QTc: 431 Interpretive Statements SINUS RHYTHM POSSIBLE LEFT ATRIAL ENLARGEMENT BASELINE WANDER- I, III, AVR, AVL, AVF BORDERLINE ECG Compared to ECG 05/17/2024 15:04:58 No significant changes Electronically Signed On 11-16-2024 06:18:00 CDT by Esteban Pandya D.O.
--- NOTE | 2024-11-15 23:10 | PC.NURSE ---
NOTIFIED KAMILLE WITH LAB THAT NEW ORDERS HAVE BEEN PLACED
--- NOTE | 2024-11-15 23:15 | PC.NURSE ---
XRAY AT THE BEDSIDE
--- NOTE | 2024-11-15 23:18 | PC.NURSE ---
[facility] AT THE BEDSIDE
--- NOTE | 2024-11-15 23:42 | PC.NURSE ---
[facility] LAB HAS FINISHED. ADRIANA AT THE BEDSIDE COMPLETING EKG AND STRAIGHT CATH FOR URINE
[2024-11-15 23:48] LABS: Basophils Absolute Auto 0.05 K/mm3 (0.00-0.10); Basophils Percent Auto 0.5 % (0.0-1.0); Eosinophils Absolute Auto 0.16 K/mm3 (0.02-0.50); Eosinophils Percent Auto 1.5 % (1.0-6.0); Hemoglobin 13.2 g/dL (12.0-15.0); Immature Granulocyte Absolute 0.08 K/mm3 (0.00-0.00); Immature Granulocyte Percent A 0.7 % (0.0-0.0); Lymphocytes Absolute Auto 2.73 K/mm3 (1.10-4.50); Lymphocytes Percent Auto 25.6 % (18.0-42.0); Mean Corpuscular Hemoglobin 29.4 pg (27.0-31.0); Mean Corpuscular Volume 89.1 fL (78.0-102.0); Mean Platelet Volume 10.5 fl (9.2-11.8); Monocytes Absolute Auto 0.57 K/mm3 (0.10-0.90); Monocytes Percent Auto 5.3 % (2.0-11.0); Neutrophils Absolute Auto 7.09 K/mm3 (1.70-7.20); Neutrophils Percent Auto 66.4 % (50.0-70.0); Platelet Count Result 302 K/mm3 (150-420); Red Blood Count 4.49 M/mm3 (4.20-5.40); Red Cell Distribution Width 12.1 % (11.6-14.4); White Blood Count 10.7 K/mm3 (4.8-10.8)
[2024-11-16 00:04] LABS: SPREG INTERNAL CONTROL Positive; Serum Qual hCG Negative
[2024-11-16 00:06] LABS: Alanine Aminotransferase 18 U/L (6-35); Albumin Level 4.3 g/dL (3.5-5.1); Alkaline Phosphatase 107 U/L (38-126); Anion Gap 11 mmol/L (4-12); Aspartate Amino Transferase 20 U/L (14-36); Bilirubin,Total 0.4 mg/dL (0.2-1.3); Blood Urea Nitrogen 15 mg/dL (7-17); Calcium 9.7 mg/dL (8.4-10.2); Carbon Dioxide 21 mmol/L (22-30); Chloride 106 mmol/L (98-107); Estimated CRCL calculation 64 ml/min; Estimated Glomerular Filt Rate 47; Glucose 195 mg/dL (65-110); Lactic Acid Reflex 1.9 mmol/L (0.4-2.0); Lipase 190 U/L (23-300); Osmolality Calculated 291 mOsm/kg (285-295); Potassium 3.5 mmol/L (3.4-5.0); Sodium 138 mmol/L (137-145); Total Protein 7.6 g/dL (6.3-8.2)
[2024-11-16 00:07] LABS: INR 0.9; Partial Thromboplastin Time 28.5 Sec (23.9-30.70)
[2024-11-16 00:07] LABS: Add Urine Microscopic? YES; Appearance Urine Clear (Clear); Bilirubin Urine Negative (Negative); Blood Urine Negative (Negative); Color Urine Yellow (Yellow); Glucose Urine UA Negative (Negative); Ketones Urine Trace (Negative); Leukocyte Esterase Ur Negative LEU/UL (Negative); Nitrate Urine Negative (Negative); Protein Urine 1+ (Negative); Specific Grav Ur 1.025 (1.010-1.020)
[2024-11-16 00:12] LABS: D Dimer 0.94 mg/L (0.19-0.50)
--- NOTE | 2024-11-16 00:14 | PC.NURSE ---
PATIENT TRANSPORTED TO CT VIA STRETCHER
[2024-11-16 00:17] LABS: NT Pro B Type Natriuretic Pept 381 pg/mL (19.9-100); Troponin I < 0.012 ng/mL (0.000-0.034)
[2024-11-16 00:20] LABS: Squamous Epithelial Cell Urine Many /hpf (Few)
--- NOTE | 2024-11-16 00:21 | PC.NURSE ---
PATIENT RETURNED TO ROOM FROM CT
--- NOTE | 2024-11-16 00:36 | PC.NURSE ---
PATIENT REPORTS PAIN TO BILATERAL LEGS AND NAUSEA. DR SANTILLAN NOTIFIED
--- NOTE | 2024-11-16 00:39 | PC.NURSE ---
DR SANTILLAN AT THE BEDSIDE
--- NOTE | 2024-11-16 00:50 | PC.NURSE ---
PATIENT BEING READJUSTED ON STRETCHER. PILLOWS PLACED BEHIND HER BACK AND UNDER HER LEGS.
--- NOTE | 2024-11-16 00:56 | PC.NURSE ---
PATIENT TAKEN DOWN TO CT VIA STRETCHER
--- NOTE | 2024-11-16 01:15 | PC.NURSE ---
RETURNED TO ROOM FROM CT
[2024-11-16] MEDS: HYDROcodone/acetaminophen (*CRX) 5-325 MG TABLET 2 TAB PO (01:16)
[2024-11-16] MEDS: SODIUM CHLORIDE 0.9% IV 1,000 ML 999 ML IV CONT (01:16)
--- NOTE | 2024-11-16 01:19 | PC.NURSE ---
PATIENT MEDICATED PER MAR. PATIENT IS NOW REPOSITIONING HERSELF ONTO HER RIGHT SIDE FOR COMFORT. ICE CHIPS IN HAND. SON AT THE BEDSIDE. LIGHTS TURNED OFF PER PATIENTS REQUEST. CALL LIGHT IN REACH
--- NOTE | 2024-11-16 02:06 | PC.NURSE ---
APPEARS TO BE SLEEPING. SON SLEEPING IN CHAIR IN THE ROOM. CALL LIGHT IN REACH
[2024-11-16] MEDS: CIPROFLOXACIN 500 MG TAB PO (02:39)
[2024-11-16] MEDS: metroNIDAZOLE 250 MG TABLET 500 MG PO (02:39)
[2024-11-16 03:00] VITALS: BP 142/86; PULSE 88; RESP 18; O2SAT 100
--- NOTE | 2024-11-17 12:35 | PC.NURSE ---
preliminary blood cultures x2 reviewed. no growth to date
--- NOTE | 2024-11-22 14:17 | PC.NURSE ---
FINAL BLOOD CULTURE REPORT; NO GROWTH AFTER 5 DAYS
== END 2024-11-16 03:00 | disposition home or self-care (01) ==
PROVIDERS: Emergency Provider Emergency Medicine; PCP Family Medicine
DX: K52.9 Noninfective gastroenteritis and colitis, unspecified (principal); E86.0 Dehydration; N17.9 Acute kidney failure, unspecified; E10.9 Type 1 diabetes mellitus without complications; E78.5 Hyperlipidemia, unspecified; Z86.718 Personal history of other venous thrombosis and embolism; F17.210 Nicotine dependence, cigarettes, uncomplicated
CPT/HCPCS: 36415; 71045; 71275; 74176; 80053; 81001; 83605; 83690; 83880; 84484; 84703; 85025; 85380; 85610; 85730; 87040; 93005; 96360; 99284; A9270; J7030; Q9967

== ENCOUNTER 2024-11-30 15:50 | Emergency (ER) | payer OTHER, SELFPAY ==
--- NOTE | 2024-11-30 15:53 | ED.GENADULT ---
HPI - General Adult General Chief complaint: Anxiety Stated complaint: anxiety Time Seen by Provider: 11/30/24 15:52 Source: patient Mode of arrival: ambulatory Limitations: no limitations History of Present Illness HPI narrative: 44 years old white female came to the ED by private car thinking that she have allergic reaction to buspirone which started 2 days ago. Patient reported been having hyperventilation, trouble breathing, tingling numbness of the hand and feet, lightheadedness, stomach upset, nausea, chest tightness for the last few weeks getting worse lately, was seen by her family physician 2 days ago who started her on buspirone. Patient denies any fever, chills, nausea, vomiting. Patient is telling me that she have a lot of stress. Bed diagnose of paraplegia 1 and half year ago, was hospitalized at [facility] in the ICU for 3 months for complication and decubitus ulcer, her grandmother 1 week ago, her daughter moved out recently,she is telling me that her is a Cheater, patient feels lonely, hait to be on the wheelchair all the time, denies suicidal or homicidal ideation Past medical history of ischemic colitis, paraplegia secondary to complication from aortic aneurysm repair, neurogenic bladder, hyperlipidemia, deep vein thrombosis, aortic thrombus, type 1 diabetes, diabetic peripheral neuropathy, spinal cord stroke history of partial amputation of toe 4 and 5th bilaterally history of iron to femoral bypass, rectal stricture and stenosis Related Data Home Medications ?Medication ?Instructions ?Recorded ?Confirmed ?Last Taken ?Type aspirin 81 mg tablet 81 mg PO DAILY 02/10/24 06/26/24 06/02/24 History atorvastatin 40 mg tablet 40 mg PO QPM 11/30/24 Unknown History buspirone 10 mg tablet 10 mg PO BID PRN anxiety 11/30/24 Unknown History Allergies Allergy/AdvReac Type Severity Reaction Status Date / Time azithromycin Allergy Unknown Hives Verified 11/30/24 16:05 amoxicillin AdvReac Intermediate Hives Verified 11/30/24 16:05 Review of Systems Review of Systems: All systems reviewed & are unremarkable except as noted in HPI and below PMFSH Past Medical History Medical History Ischemic colitis Intractable nausea and vomiting Abnormality of rectum Paraplegia Clostridium difficile diarrhea Neurogenic bladder Hyperlipidemia Deep venous thrombosis Aortic thrombus Diabetic peripheral neuropathy Type 1 diabetes mellitus Spinal cord stroke Surgical History Surgical History History of partial amputation of toe 4th and 5th toe bilaterally History of aorto-femoral bypass [facility] Family History Family History Mother Acute myocardial infarction Diabetes mellitus Hypertension Father History of blood clots Social History Social History Social History: Surrogate medical decision maker: Ml Aguilar, mother. Code status: Full code. Smoking packs per day: 0.33 Smoking cigarettes per day: 6.6 Years smoked: 25 Smoking pack-years: 8.25 Smoking status: Current every day smoker Tobacco type: cigarettes Second hand tobacco smoke exposure: Yes Alcohol intake: former Substance use: current Substance use type: marijuana Other substance usage details: DAILY Do You Feel Safe in your Home?: Yes Lack of Transportation: No Lack of Food: Never True Current Housing: I Have Housing Concerned About Future Housing: No Difficulty Paying Gas/Electric Bills: No Difficulty Paying for Meds: No Currently Unemployed: No Education: Associate Degree Difficulty w/ Childcare or Family Care: No Living arrangements: with family Additional living arrangements comments: Lives with spouse and children in [place]. Spiritual care concerns: No Exam Narrative: General appearance: Well-developed, well-nourished, hyperventilating, screaming, tearful Skin: Normal color Head: Normocephalic, nontraumatic Eyes: Clear conjunctiva ENT: Oropharynx normal, ears normal, nose normal Neck: Supple, nontender Chest and respiratory: Airway patent, no respiratory distress, no accessory muscle use Heart: Regular rate/rhythm Abdomen: Soft, nontender, no organomegaly, quiet bowel sounds Vascular: Normal peripheral pulses, normal capillary refill. Neurologic: Alert and oriented ?3, paraplegia Course Vital Signs Vital signs: Vital Signs Temperature 36.6 C 11/30/24 15:54 Pulse Rate 85 11/30/24 15:54 Respiratory Rate 23 H 11/30/24 15:54 Blood Pressure 191/83 H 11/30/24 15:54 Pulse Oximetry 99 11/30/24 15:54 Oxygen Delivery Room Air 11/30/24 15:54 Temperature 36.6 C 11/30/24 16:56 Pulse Rate 91 11/30/24 16:56 Respiratory Rate 18 11/30/24 16:56 Blood Pressure 158/83 H 11/30/24 16:56 Pulse Oximetry 98 11/30/24 16:56 Oxygen Delivery Room Air 11/30/24 16:56 Medical Decision Making MDM Narrative Medical decision making narrative: patient presents with hyperventilation syndrome 2 mg of Ativan IM , immediate improvement Discharged on clonazepam and to stop buspiron Vital Signs Vital Signs: Vital Signs Temperature 36.6 C 11/30/24 15:54 Pulse Rate 85 11/30/24 15:54 Respiratory Rate 23 H 11/30/24 15:54 Blood Pressure 191/83 H 11/30/24 15:54 Pulse Oximetry 99 11/30/24 15:54 Oxygen Delivery Room Air 11/30/24 15:54 Temperature 36.6 C 11/30/24 16:56 Pulse Rate 91 11/30/24 16:56 Respiratory Rate 18 11/30/24 16:56 Blood Pressure 158/83 H 11/30/24 16:56 Pulse Oximetry 98 11/30/24 16:56 Oxygen Delivery Room Air 11/30/24 16:56 Critical Care Time Critical Care Time Critical Care Time: No Discharge Plan Discharge Clinical Impression: Stress, Insomnia, Major depression Patient Disposition: Home Condition: Improved Instructions: Hyperventilation (ED) Additional Instructions: Return if symptoms are worsening , call your family physician for appointment, take Tylenol as as needed for aches and pain, continue home medications. Patient Language: Russian Prescriptions: New clonazepam [Klonopin] 0.5 mg tablet 0.5 mg PO BID PRN (Reason: anxiety) Qty: 10 0RF Rx Instructions: administer 30 minutes before bedtime No Action atorvastatin 40 mg tablet 40 mg PO QPM buspirone 10 mg tablet 10 mg PO BID PRN (Reason: anxiety) aspirin 81 mg Tablet 81 mg PO DAILY bisacodyl 10 mg Suppository 10 mg RECTAL QAM Qty: 30 0RF polyethylene glycol 3350 [Miralax] 17 gram Powder In Packet 17 g PO QAM Qty: 30 0RF Follow-up/Referrals: Jose G,MD Anjum [Primary Care Provider] -
[2024-11-30 15:54] VITALS: BP 191/83; PULSE 85; RESP 23; TEMP 36.6; O2SAT 99
[2024-11-30] MEDS: LORazepam INJ (*CRX) 2 MG/ML VIAL IM (15:57)
--- OUTSIDE RECORDS SUMMARY | 2024-11-30 16:51 | XMS_ITS | Data Portability ---
Author Organization [facility], [address] [facility] ([place]) Address [address] [place] [address] Care Team Providers Care Childcare Center Administrator Name Role Phone SEAN DELA CRUZ Primary Care Provider Assessment Encounter Date Assessment Date Assessment LastModified [...] on this date of service including both huqo-kx-udke and whf-lqpi-ui-face time excluding any separately reportable services. ROXIE [email or web address] Not available 08/28/2024 21:21:19 Plan of Treatment [...] Details Recorded Time Infarction of spinal cord 069122878 Active 2024 Amy Fontenot MD [address] [place] [address], [phone], [facility] 5 18:26:49 Antiphospholip id syndrome 12535576 Active 2024 Amy Fontenot MD [address] [place] [address], [phone], [facility] 5 18:28:53 Problem Notes None recorded. Medical Equipment None Reported. Allergies Allergen ID Allergen Name Allergen Category Reaction Reaction Severity Criticality Documentation Date Start Date Code Code System Note Provider Name and Address Organization Details Recorded Time 047207 azithromy brielle medicatio n dyspnea Not available Not available 07/15/20232016 78881 RxNorm React ion: Hives ; Short ness of breat h; Not Available [facility] 4 23:36:31 349911 amoxicill in trihydrat e medicatio n dyspnea Not available Not available 07/15/20232022 78862 8 RxNorm React ion: Short ness of breat h; Comme nt: Annot ation s: YOVANNY S (MILENA) , HAM TY 2022 10:05 AM CAUSE S YEAST INFEC TION; ; Not Available [facility] 4 23:36:34 Vitals Date Recorded Heart rate Oxygen saturation Oxygen saturation in Arterial blood by Pulse oximetry Systolic blood pressure Diastolic blood pressure Provider Name and Address Organization Details Last Updated DateTime 5 105 /min 99 % 99 % 120 mm[Hg] 80 mm[Hg] Aneta Luis [facility] 5 15:37:36 Social History None recorded. Functional Status None recorded. Mental Status None recorded. Family History Nothing Reported. Medical History No medical history recorded. Gynecological HistoryNo gynecological history recorded. Obstetrics History GPAL:G 0 P 0 0 0 0 Past Encounters Encounter ID Performer Location Encounter Start Date Encounter Closed Date Diagnosis/Indication Diagnosis SNOMED-CT Code Diagnosis ICD10 Code Diagnosis Note [id number] Amy Fontenot MD [address] [facility] [address] [place] [address] 08/24/2024 15:27:24 08/24/2024 17:37:52 Infarction of spinal cord 206861946 G95.11 Antiphosph olipid syndrome 70043166 D68.61 Health Concerns Section Related Observation LastModified by Organization Detai ls LastModified Time None Recorded Concern Status LastModified by Organization Details LastModified Time None Recorded Advance Directives Directive None Recorded Payers Insurance Date Sequence Insurance Name Policy Number Policy Salinas Covered Member ID Salinas Member ID Guarantor Name 08/29/2024 [facility] [id number] Jill Villa 08/24/2024 2 [place] [facility] Jill Villa [id number] Jill Villa Notes Date Note Type Note [...] I did an extensive review of the [facility] records including operative reports, consultations, progress notes, and H&P.SKK Amy Fontenot MD [address] [facility], [place], [address], [place] [facility] 08/28/2024 21:21:29 OBGyn Episode No OBEpisode recorded.
--- OUTSIDE RECORDS SUMMARY | 2024-11-30 16:51 | XMS_ITS | Clinical Summary ---
Author Organization [facility] Address [address] [place] [address] Care Team Providers Care Washroom Cleaner Name Role Phone Anjum Araiza MD Primary Care Provider [phone] Source Comments [facility],non-owned Affiliates and Associated Physician Practices is amultiple site organization consisting of ambulatory clinics and hospital sitesin [place], [place], [place] and [place]. This disclosure is being madepursuant to the Care Everywhere program and may not contain all information available regarding this patient. Last updated 18.[facility] Allergies Active Allergy Reactions Criticality Noted Date [...] medical care, and heating? Somewhat hard 01/20/2024 [facility] - Occupational [...] place to sleep or slept in a care home (including now)? No 01/20/2024 Comments Unknown Sex [...] complete this topic Insurance [place] - [place] [facility] * Guarantor: BRYAN VILLA Account Type Relation to Patient Date of Phone Billing Address Personal/Family [address] [place] [address] [facility] [place]ID - [place] * Guarantor: BRYAN VILLA Account Type Relation to Patient Date of Phone Billing Address Personal/Family [address] [place] [address] [place] - [place] Advance Directives * Full Code (Latest Code Status on File) Date Activated Date Inactivated Comments 01/20/2024 1:14 PM 01/25/2024 2:42 AM Care Teams Washroom Cleaner Relationship Specialty Start Date End Date Anjum Araiza MD [address] [place] [phone] PCP - General Family Medicine 01/24/24
--- OUTSIDE RECORDS SUMMARY | 2024-11-30 16:51 | XMS_ITS | Encounter Summary ---
Author Organization [facility] Address [address] [facility] 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
--- OUTSIDE RECORDS SUMMARY | 2024-11-30 16:51 | XMS_ITS | Clinical Summary ---
Author Organization [facility] Address [address] [place] [address] Phone Care Team Providers Care Building Maintenance Supervisor Name Role Phone Anjum Araiza MD Primary Care Provider [phone] Allergies Active Allergy Reactions Criticality Noted Date [...] to complete this topic Insurance [place] [facility] [id number] RX [employer] RX Member Subscriber Plan / Payer ( fective 2024-Present) Name:Bryan Villa Relation to Subscriber:Self Name:ArkdaleBryan burch Subscriber ID:Not on file Payer ID:Not on file Group ID:[id number] Type:RX Commercial Address: [address] Advance Directives For more information, please contact: [phone] * Full Code (Latest Code Status on File) Date Activated Date Inactivated Comments 03/04/2024 4:49 PM 03/07/2024 9:32 PM Care Teams Building Maintenance Supervisor Relationship Specialty Start Date End Date Anjum Araiza MD [address] [place] [phone] PCP - General Family Practice 03/07/24
--- OUTSIDE RECORDS SUMMARY | 2024-11-30 16:51 | XMS_ITS | Clinical Summary ---
Author Organization [facility] Address [address] [place] [address] Phone Care Team Providers Care After School Driver Name Role Phone Anjum Araiza MD Primary Care Provider [phone] Allergies No known active allergies Medications citalopram [...] mg by mouth every 6 hours. rx 2927400 4 Active pantoprazole (PROTONIX) 40 MG Tablet Delayed Response Take 40 mg by mouth daily. 5244641 Active Probiotic Product (Daily Probiotic) Capsule Take 1 Tablet by mouth daily. Active metoclopramide (REGLAN) 10 MG Tablet Take 10 mg by mouth 2 times daily. 8010280 Active Social History Tobacco Use Types Packs/Day Years Used Date Smoking Tobacco: Never Assessed Comments Unknown Sex and Gender Information Value Date Recorded Sex Assigned at Not on file Legal Sex Female 2:53 PM ECONOMIC RESEARCH ASSISTANT Gender Identity Not on file Sexual Orientation [...] Inactivated Comments 03/09/2024 10:03 AM Care Teams After School Driver Relationship Specialty Start Date End Date Anjum Araiza MD [address] [place] [phone] PCP - General Family Medicine 01/29/24
--- OUTSIDE RECORDS SUMMARY | 2024-11-30 16:54 | XMS_ITS | Encounter Summary ---
Author Organization [facility] Address [address] [place] [address] Care Team Providers Care Central Office Supervisor Name Role Phone Anjum Araiza MD Primary Care Provider [phone] Encounter Details Date Type Department Care Team (Late st Contact Info) Description 11/22/2018 Abstract [facility] CONVERSION [address] [place] [address] , Generic Conversion, Social History Tobacco Use Types Packs/Day Years Used Date Smoking Tobacco: Never Assessed Comments Unknown Sex and Gender Information Value Date Recorded Sex Assigned at Female 06/23/2019 10:01 AM SUMMER CAMP COUNSELOR Legal Sex Female 5:56 PM SUMMER CAMP COUNSELOR Gender Identity Female 06/23/2019 10:01 AM SUMMER CAMP COUNSELOR Sexual Orientation Not on file documented as of this encounter Plan of Treatment Not on file documented as of this encounter Visit Diagnoses Not on filedocumented in this encounter Care Teams Central Office Supervisor Relationship Specialty Start Date End Date Anjum Araiza MD [address] [place] [phone] PCP - General FAMILY PRACTICE 06/18/19 documented as of this encounter
--- OUTSIDE RECORDS SUMMARY | 2024-11-30 16:54 | XMS_ITS | Clinical Summary ---
Author Organization [facility] Address [address] [place] [address] Care Team Providers Care Musical Instruments Assembler Name Role Phone Anjum Araiza MD Primary Care Provider [phone] Allergies Active Allergy Reactions Criticality Noted Date [...] gluteal, right 06/18/2019 Type II diabetes mellitus ([facility] HHS/HCC) Diabetic peripheral neuropathy ([facility]/HCC) Mixed hyperlipidemia Benign essential hypertension Tobacco [...] Sex Assigned at Female 06/23/2019 10:01 AM SECURITY COMPLIANCE SPECIALIST Legal Sex Female 5:56 PM SECURITY COMPLIANCE SPECIALIST Gender Identity Female 06/23/2019 10:01 AM SECURITY COMPLIANCE SPECIALIST Sexual Orientation Not on file Last Filed [...] P M CDT Height 188 cm (6' 2) 11/11/2022 6:11 PM CDT Body Mass Index 25.86 11/11/2022 6:11 PM CDT Plan of Treatment Health Maintenance Due Date Last Done Comments Cervical Cancer Screening Pap Smear (Age 30 to 64) Every 3 Years 1982 Kidney Health Evaluation 1982 Hemoglobin A1C 1982 Lipid Panel 1982 Annual Physical 1985 Diabetes: Retinopathy Eye Exam 2000 DTaP, Tdap and Td Vaccines (1 - Tdap) 2001 02/07/1987, 07/19/1986, 12/18/1983, Additional history exists Hepatitis B Vaccines (1 of 3 - 19+ 3-dose series) 2001 Pneumococcal Vaccine: Pediatrics (0 to 5 Years) and At-Risk Patients (6 to 49 Years) (1 of 2 - PCV) 2001 Cervical Cancer Screening Pap with HPV Testing (Age 30 to 64) Every 5 Years 2012 Cervical Cancer Screening with HPV 2012 Mammogram Screening 2022 COVID-19 Vaccine ( season) 2024 Hepatitis C Completed 09/25/2017 HPV Vaccines Aged Out No longer eligi ble based on patient's age to complete this topic Meningococcal B Vaccine Aged Out No l onger eligible based on patient's age to complete this topic Meningococcal Vaccine Aged Out No eleazar beck eligible based on patient's age to [...] VE NON-REACT YOUSIF 09/27/2017 10:[address] [facility] Comment:HBsAg NOT DETECTED. HEP B CORE IGM NON-REACTI VE NON-REACT YOUSIF 09/27/2017 10:[address] [facility] Comment: IgM ANTI HBc NOT DETECTED. DOES NOT EXCLUDE THE POSSIBILITY OF EXPOSURE TO OR INFECTION WITH HBV. NO RETEST REQUIRED. HAV IGM NON-REACTI VE NON-REACT [facility] 09/27/2017 10:[address] [facility] Comment: IgM ANTI HAV NOT DETECTED. DOES NOT EXCLUDE THE POSSIBILITY OF EXPOSURE TO OR INFECTION WITH HAV. LEVELS OF IgM ANTI HAV MAY BE BELOW THE CUTOFF IN EARLY INFECTION. HEPATITIS C AB NON-REACTI VE NON-REACT [facility] 09/27/2017 10:[address] [facility] Comment: ANTIBODIES TO HCV NOT DETECTED. DOES NOT EXCLUDE THE POSSIBILITY OF EXPOSURE TO HCV. 09/25/2017 1:19 PM CDT 09/25/2017 1:21 PM CDT us Generic Conversion [facility] Final R esult [facility] [address] [place] [address], [id number] from Last 3 Months or Most Recently Relevant to Health Maintenance Insurance MEDICAID MEDICAID Care Teams Musical Instruments Assembler Relationship Specialty Start Date End Date Anjum Araiza MD [address] [place] [phone] PCP - General FAMILY PRACTICE 06/18/19
[2024-11-30 16:56] VITALS: BP 158/83; PULSE 91; RESP 18; TEMP 36.6; O2SAT 98
== END 2024-11-30 16:58 | disposition home or self-care (01) ==
PROVIDERS: Emergency Provider Emergency Medicine; PCP Family Medicine
DX: F43.9 Reaction to severe stress, unspecified (principal); G47.00 Insomnia, unspecified; F32.9 Major depressive disorder, single episode, unspecified; E10.9 Type 1 diabetes mellitus without complications; E78.5 Hyperlipidemia, unspecified; F17.210 Nicotine dependence, cigarettes, uncomplicated; Z86.718 Personal history of other venous thrombosis and embolism; Z79.899 Other long term (current) drug therapy
CPT/HCPCS: 96372; 99283; J2060

== ENCOUNTER 2024-12-29 13:52 | Outpatient (RCR) | payer OTHER, MEDICAID, SELFPAY ==
--- NOTE | 2024-12-30 09:15 | OPREHPOC ---
Outpatient Therapy Plan of Care This is a Multidisciplinary Plan of Care that may contain components documented by all disciplines (PT, OT, and ST.)
--- NOTE | 2024-12-30 09:15 | PTOPEVDC ---
Assessment and note entered by JT File, PT Thank you for referring Jill Villa to [facility].? An evaluation has been completed. No further treatment is needed. Evaluation Information Assessment Status Evaluation Diagnosis WC evaluation Onset 12/15/24 Subjective Information patient reports she needs a new wheelchair. she reports she was supposed to get one and has been using a loaner from a company. however, her last evaluation is now . she reports the loaner she currently has does not fit her. Reported Pain Level Pain Score 0: Self Report Assessment PT Clinical Summary mrs. villa presents to skilled PT services for WC evaluation. her current setup is a loaner that does not properly fit her. she would benefit from getting a properly fit new manual chair to improve her independence and function in the home and community. see attached WC evaluation. Plan of Care Treatment Frequency and DC no continued treatment needed. Patient to Duration receive WC for better fit and function.
== END 2024-12-29 16:47 | disposition home or self-care (01) ==
LOC: CHSPT 13:52
PROVIDERS: PCP Physician Assistant; Visit Provider Physician Assistant
DX: G82.20 Paraplegia, unspecified (principal)
CPT/HCPCS: 97161

== ENCOUNTER 2025-03-07 09:07 | Emergency (ER) | payer OTHER, MEDICAID, SELFPAY ==
--- NOTE | ~2025-03-07 | XR_ITS ---
Examination: XR chest 1V portable Clinical History: onset this AM, chest pain Comparison: CTA chest 11/16/2024 Technique: Portable AP Findings: Heart size normal. Lungs clear. No acute bony abnormality. IMPRESSION: 1. No acute cardiopulmonary findings given portable technique. Reviewed, dictated and finalized at location R.
[2025-03-07 09:07] VITALS: BP 161/102; PULSE 91; RESP 15; TEMP 36.4; O2SAT 100
[2025-03-07 09:10] VITALS: PULSE 91
--- NOTE | 2025-03-07 09:13 | ECG_ITS ---
Test Date: 2025-03-07 09:21:30 Measurements Intervals [place] Rate: 94 P: 56 [place]: 198 QRS: 24 QRSD: 91 T: 80 QT: 371 QTc: 464 Interpretive Statements SINUS RHYTHM ANTERIOR MYOCARDIAL INFARCTION , PROBABLY RECENT [40+ ms Q WAVE AND/OR ST/T ABNORMALITY IN V3/V4] POSSIBLE INFERIOR MYOCARDIAL INFARCTION , OF INDETERMINATE AGE [30 ms Q WAVE IN II/aVF] ACUTE AR Compared to ECG 11/16/2024 00:00:09 Myocardial infarct finding now present Electronically Signed On 03-08-2025 14:07:49 CDT by Jovi Kay M.D.
--- OUTSIDE RECORDS SUMMARY | 2025-03-07 09:13 | XMS_ITS | Clinical Summary ---
Author Organization [facility] Address [address] [place] [address] Phone Care Team Providers Care Road Machine Runner Name Role Phone Anjum Araiza MD Primary Care Provider [phone] Allergies No known active allergies Medications citalopram [...] mg by mouth every 6 hours. rx [id number] Active pantoprazole (PROTONIX) 40 MG Tablet Delayed Response Take 40 mg by mouth daily. [id number] Active Probiotic Product (Daily Probiotic) Capsule Take 1 Tablet by mouth daily. Active metoclopramide (REGLAN) 10 MG Tablet Take 10 mg by mouth 2 times daily. [id number] Active Social History Tobacco Use Types Packs/Day Years Used Date Smoking Tobacco: Never Assessed Comments Unknown Sex and Gender Information Value Date Recorded Sex Assigned at Not on file Legal Sex Female 2:53 PM PHARMACEUTICAL OFFICER Gender Identity Not on file Sexual Orientation [...] Inactivated Comments 03/09/2024 10:[address] Machine Runner Relationship Specialty Start Date End Date Anjum Araiza MD [address] [phone] PCP - General Family Medicine 01/29/24
--- OUTSIDE RECORDS SUMMARY | 2025-03-07 09:13 | XMS_ITS | Encounter Summary ---
Author Organization [facility] Address [address] [place] [address] Phone Care Team Providers Care Snow Removing Supervisor Name Role Phone Anjum Araiza MD Primary Care Provider [phone] Encounter Details Date Type Department Care Team (Late st Contact Info) Description 03/07/2024 Home Health Resumpti on of Care Planning [facility] [address] [place] [address] Social History Tobacco Use Types Packs/Day Years Used Date Smoking Tobacco: Never Assessed Comments Unknown Sex and Gender Information Value Date Recorded Sex Assigned at Not on file Legal Sex Female 2:53 PM EXTRACTOR OPERATOR SOLVENT PROCESS Gender Identity Not on file Sexual Orientation Not on file documented as of this encounter Plan of Treatment Not on file documented as of this encounter Visit Diagnoses Not on filedocumented in this encounter Care Teams Snow Removing Supervisor Relationship Specialty Start Date End Date Anjum Araiza MD [address] [place] [address] PCP - General Family Medicine 01/29/24 documented as of this encounter
--- OUTSIDE RECORDS SUMMARY | 2025-03-07 09:13 | XMS_ITS | Clinical Summary ---
Author Organization [facility] Address [address] [place] [address] Care Team Providers Care Division Operations Manager Name Role Phone Anjum Araiza MD Primary Care Provider [phone] Source Comments [facility],non-owned Affiliates and Associated Physician Practices is amultiple site organization consisting of ambulatory clinics and hospital sitesin [place], [place] and [place]. This disclosure is being madepursuant to the Care Everywhere program and may not contain all information available regarding this patient. Last updated 18.[facility] Allergies Active Allergy Reactions Criticality Noted Date [...] MORNING AND EVENING MEAL 60 tablet 4 Active insulin glargine (Lantus/Semgle e) 100 units/mL pen INJECT 33 UNITS SUBCUTANEOUSLY AT BEDTIME 15 mL 4 Active Insulin Pen Needle 32G X 4 MM MISC USE TO INJECT INSUILN FOUR TIMES DAILY 100 Each 4 Active insulin lispro (HumaLOG;ADMel og) 100 UNIT/ML pen INJECT 10 UNITS SUBCUTANEOUSLY THREE TIMES DAILY BEFORE MEALS. HOLD IF GLUCOSE < 140 15 mL 4 Active Active Problems Problem Noted Date Diagnosed [...] medical care, and heating? Somewhat hard 01/20/2024 [facility]ational Stress Questionnaire Answer Date [...] place to sleep or slept in a group home (including now)? No 01/20/2024 Comments Unknown [...] Due Date Last Done Comments MAMMOGRAM 1982 HIV SCREENING 1997 DTAP/TDAP/TD VACCINES (1 - Tdap) 2001 HEPATITIS B VACCINE (1 of 3 - 19+ 3-dose series) 2001 PAP SMEAR 2003 HPV VACCINE (1 - 3-dose SCDM series) 2009 DEPRESSION SCREENING 06/17/2024 COVID-19 VACCINE (2023-2 5 season) 2025 INFLUENZA VACCINE (#1) 2025 ZOSTER VACCINE (1 of 2) 2032 [...] on patient's age to complete this topic PNEUMOCOCCAL VACCINE Aged Out No long er eligible based on patient's age to complete this topic Insurance MEDICAID - [place] [facility] * Guarantor: BRYAN VILLA Account Type Relation to Patient Date of Phone Billing Address Personal/Family [address] [place] [address] [facility] MEDICAID - [place] * Guarantor: BRYAN VILLA Account Type Relation to Patient Date of Phone Billing Address Personal/Family [address] [place] [phone] [address] MEDICAID - [place] Advance Directives * Full Code (Latest Code Status on File) Date Activated Date Inactivated Comments 01/20/2024 1:14 PM 01/25/2024 2:42 AM Care Teams Division Operations Manager Relationship Specialty Start Date End Date Anjum Araiza MD [address] [place] [phone] PCP - General Family Medicine 01/24/24
--- OUTSIDE RECORDS SUMMARY | 2025-03-07 09:13 | XMS_ITS | Encounter Summary ---
Author Organization [facility] Address [address] [place] [address] Care Team Providers Care Slasher Name Role Phone Anjum Araiza MD Primary Care Provider [phone] Encounter Details Date Type Department Care Team (Late st Contact Info) Description 11/22/2018 Abstract SFL CONVERSION [address] [place] [address] , Generic Conversion, Social History Tobacco Use Types Packs/Day Years Used Date Smoking Tobacco: Never Assessed Comments Unknown Sex and Gender Information Value Date Recorded Sex Assigned at Female 06/23/2019 10:01 AM FILM TESTS CHECKER Legal Sex Female 5:56 PM FILM TESTS CHECKER Gender Identity Female 06/23/2019 10:01 AM FILM TESTS CHECKER Sexual Orientation Not on file documented as of this encounter Plan of Treatment Not on file documented as of this encounter Visit Diagnoses Not on filedocumented in this encounter Care Teams Slasher Relationship Specialty Start Date End Date Anjum Araiza MD [address] [place] [phone] PCP - General FAMILY PRACTICE 06/18/19 documented as of this encounter
--- OUTSIDE RECORDS SUMMARY | 2025-03-07 09:14 | XMS_ITS | Clinical Summary ---
Author Organization [facility] Address [address] [place] [address] Care Team Providers Care Fiberglass Boat Parts Finisher Name Role Phone Anjum Araiza MD Primary [...] gluteal, right 06/18/2019 Type II diabetes mellitus ([facility] HHS/HCC) Diabetic peripheral neuropathy ([facility] HHS/HCC) Mixed hyperlipidemia Benign essential hypertension Tobacco [...] Sex Assigned at Female 06/23/2019 10:01 AM GRAB JACK MAN Legal Sex Female 5:56 PM GRAB JACK MAN Gender Identity Female 06/23/2019 10:01 AM GRAB JACK MAN Sexual Orientation Not on file Last Filed [...] Years) (1 of 2 - PCV) 2001 HPV Vaccines (1 - 3-dose SCDM series) 2009 Cervical Cancer Screening Pap with HPV Testing (Age 30 to 64) Every 5 Years 2012 Cervical Cancer Screening with HPV 2012 Mammogram Screening 2022 PHQ-2 (Physician [place]) 06/17/2024 COVID-19 Vaccine ( season) 2025 Hepatitis C Completed 09/25/2017 Meningococcal B Vaccine Aged Out No l [...] VE NON-REACT YOUSIF 09/27/2017 10:11 AM CDT [facility] Comment:HBsAg NOT DETECTED. HEP B CORE IGM NON-REACTI VE NON-REACT YOUS[facility] 09/27/2017 10:11 AM CDT [facility] Comment: IgM ANTI HBc NOT DETECTED. DOES NOT EXCLUDE THE POSSIBILITY OF EXPOSURE TO OR INFECTION WITH HBV. NO RETEST REQUIRED. HAV IGM NON-REACTI VE NON-REACT [facility] 09/27/2017 10:11 AM CDT [facility] Comment: IgM ANTI HAV NOT DETECTED. DOES NOT EXCLUDE THE POSSIBILITY OF EXPOSURE TO OR INFECTION WITH HAV. LEVELS OF IgM ANTI HAV MAY BE BELOW THE CUTOFF IN EARLY INFECTION. HEPATITIS C AB NON-REACTI VE NON-REACT [facility] 09/27/2017 10:11 AM CDT [facility] Comment: ANTIBODIES TO HCV NOT DETECTED. DOES NOT EXCLUDE THE POSSIBILITY OF EXPOSURE TO HCV. 09/25/2017 1:19 PM CDT 09/25/2017 1:21 PM CDT us Generic Conversion [facility] Final R esult [facility] [address] [place] [address], [id number] from Last 3 Months or Most Recently Relevant to Health Maintenance Insurance [facility] MEDICAID MEDICAID Care Teams Fiberglass Boat Parts Finisher Relationship Specialty Start Date End Date Anjum Araiza MD [address] [place] [phone] PCP - General FAMILY PRACTICE 06/18/19
--- NOTE | 2025-03-07 09:17 | ED.CHESTPAIN ---
HPI - Chest Pain General Chief Complaint: Chest Pain Stated Complaint: chest pain Time Seen by Provider: 03/07/25 09:14 Source: patient and family Mode of arrival: wheelchair Limitations: no limitations History of Present Illness HPI narrative: Patient is a 44-year-old female with chest pain that started last night. She has pressure chest pain centrally and radiation to bilateral biceps. Pain is 10/10. 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 MD complaint: chest pain, chest heaviness and chest discomfort Pertinent past history: other (Aortic repair with stent of abdomen/pelvis) Onset (ago): hour(s) (12) Timing of current episode: constant, increasing and still present Prior episodes: No Onset: during rest, during exertion and awoke with symptoms Pain location: substernal, left chest, right chest and parasternal Pain radiation: right arm and left arm Severity: severe Pain scale (0-10): 10 Quality: heaviness and sharp Relieving factors: nitroglycerin and leaning forward Exacerbating factors: palpation and movement Context: other (New onset chest pain as of last night with bilateral arm radiation) Associated symptoms: sense of impending doom Treatment prior to arrival: none Risk Factors Coronary artery disease risk factors: diabetes and hyperlipidemia Thoracic aortic dissection risk factors: none Related Data On Oral Contraceptives: No Home Medications ?Medication ?Instructions ?Recorded ?Confirmed ?Last Taken ?Type aspirin 81 mg tablet 81 mg PO DAILY 02/10/24 02/26/25 06/02/24 History atorvastatin 40 mg tablet 40 mg PO QPM 11/30/24 02/26/25 Unknown History buspirone 10 mg tablet 10 mg PO BID PRN anxiety 11/30/24 02/26/25 Unknown History bisacodyl 10 mg rectal suppository 10 mg RECTAL QAM PRN constipation 02/26/25 02/26/25 Unknown History glipizide 5 mg tablet, extended 5 mg PO DAILY 02/26/25 02/26/25 Unknown History release 24 hr Allergies Allergy/AdvReac Type Severity Reaction Status Date / Time azithromycin Allergy Unknown Hives Verified 03/07/25 09:18 amoxicillin AdvReac Intermediate Hives Verified 03/07/25 09:18 Review of Systems Review of Systems: All systems reviewed & are unremarkable except as noted in HPI and below Constitutional: Constitutional: Reports no additional constitutional complaints Eyes: Eyes: Reports no additional eye complaints ENT: Reports system reviewed and no additional complaints, except as documented Cardiovascular: Cardiovascular: Reports no additional cardiovascular complaints Respiratory: Respiratory: Reports no additional respiratory complaints Gastrointestinal: Gastrointestinal: Reports no additional gastrointestinal complaints Genitourinary: Genitourinary: Reports no additional female genitourinary complaints Musculoskeletal: Musculoskeletal: Reports no additional musculoskeletal complaints Integumentary/Breasts: Skin/Breast: Reports system reviewed and no additional complaints, except as docu Neurologic: Reports system reviewed and no additional complaints, except as documented Psychiatric: Psychiatric: Reports no additional psychiatric complaints Endocrine: Endocrine: Reports no additional endocrine complaints Hematologic/Lymphatic: Hematologic/Lymphatic: Reports no additional hematologic/lymphatic complaints Allergic/Immunologic: Allergic/Immunologic: Reports no additional allergic/immunologic complaints [facility] Past Medical History Medical History Ischemic colitis Intractable nausea and vomiting Abnormality of rectum Paraplegia Clostridium difficile diarrhea Neurogenic bladder Hyperlipidemia Deep venous thrombosis Aortic thrombus Diabetic peripheral neuropathy Type 1 diabetes mellitus Spinal cord stroke Surgical History Surgical History History of partial amputation of toe 4th and 5th toe bilaterally History of aorto-femoral bypass [facility] Family History Family History Mother Acute myocardial infarction Diabetes mellitus Hypertension Father History of blood clots Social History Social History Social History: Surrogate medical decision maker: Ml Aguilar, mother. Code status: Full code. Smoking packs per day: 0.5 Smoking cigarettes per day: 10.0 Years smoked: 30 Smoking pack-years: 15.00 Smoking status: Current every day smoker Tobacco type: cigarettes Second hand tobacco smoke exposure: Yes Alcohol intake: former Substance use: current Substance use type: marijuana Other substance usage details: DAILY Do You Feel Safe in your Home?: Yes Lack of Transportation: No Lack of Food: Never True Current Housing: I Have Housing Concerned About Future Housing: No Difficulty Paying Gas/Electric Bills: No Difficulty Paying for Meds: No Currently Unemployed: No Education: Associate Degree Difficulty w/ Childcare or Family Care: No Living arrangements: with family Additional living arrangements comments: Lives with spouse and children in [place]. Spiritual care concerns: No Exam Const: General: healthy appearing Nutritional Appearance: well nourished Orientation/consciousness: patient oriented x3 Limitations: no limitations HENMT: Head: normal to inspection Ears: external ears normal Face/Nose/Sinus: Normal external nose present Eyes: Conjunctivae: conjunctivae normal Pupils: Equal, round and reactive pupils present EOM: EOMs intact bilaterally Neck: Neck: normal visual inspection Chest: Chest palpation & inspection: normal inspection of the chest Resp: Effort & Inspection: normal respiratory effort and not labored Auscultation: clear to auscultation bilaterally and no crackles Cardio: Rate: regular rate Rhythm: regular rhythm Heart sounds: no murmurs GI: Inspection: non-distended GI Palp: Yes Soft to palpation and No Tenderness to palpation present (GI) Auscultation: normal bowel sounds : General: Yes bladder normal to palpation Back/Spine/Pelvis: Back: no CVA tenderness Skin: General skin exam: normal color Rashes: no rashes Wounds: no wounds Neuro: General: patient oriented x3, moves all extremities, no meningeal signs, no focal motor deficits and CN's II-XI intact bilaterally Cranial nerves: Yes Nystagmus not present Speech: normal speech Gait exam (Neuro): gait abnormal (Paraplegia) Extrem: General: normal to inspection Psych: Mental Status: mental status grossly normal Affect: Anxious affect present Attitude: cooperative MDM - Chest Pain MDM Narrative Medical decision making narrative: Patient is a 44-year-old female with STEMI seen on EKG entry to the ER. Patient having chest pain. Patient ruled STEMI and sent to [facility] with Dr. Kay. She was given aspirin 324 mg chew, heparin 5000 unit bolus, sublingual nitro x1. Patient sent level 1 EMS ride however they were basic life support and to be sent to nurse to advance them to advanced life support. Any other mode of transportation with lose our time frame to get the analyst microbiology lab. Lab Data Attestation: I reviewed the patient's lab results. Imaging Data Attestation: I personally reviewed and interpreted this imaging study as follows: Radiologist's impression: Chest x-rays negative for acute process ECG Data EKG #1: Attestation: I personally reviewed and interpreted this ECG as follows: ECG completion date: 03/07/25 ECG completion time: 10:17 EKG Interpretation: normal rate, sinus rhythm, no ectopy, ST elevation (Inferior, anterior, septal, lateral), normal QRS, normal QT and NL axis Critical Care Time Critical Care Time Critical Care Time: Yes Total Critical Care Time: 30 Discharge Plan Discharge Clinical Impression: Diabetes mellitus type 2 in nonobese, Chronic paraplegia ST elevation (STEMI) myocardial infarction Qualifiers: Involved coronary artery: unspecified coronary artery Qualified Code(s): I21.3 - ST elevation (STEMI) myocardial infarction of unspecified site Hyperlipidemia Qualifiers: Hyperlipidemia type: unspecified Qualified Code(s): E78.5 - Hyperlipidemia, unspecified Patient Disposition: Acute Care Hospital Condition: Serious Patient Language: Syrian Prescriptions: No Action atorvastatin 40 mg tablet 40 mg PO QPM buspirone 10 mg tablet 10 mg PO BID PRN (Reason: anxiety) Patient Comments: not taking clonazepam [Klonopin] 0.5 mg tablet 0.5 mg PO BID PRN (Reason: anxiety) Qty: 10 0RF Patient Comments: 1mg bid prn Rx Instructions: administer 30 minutes before bedtime glipizide 5 mg tablet extended release 24hr 5 mg PO DAILY bisacodyl 10 mg Suppository 10 mg RECTAL QAM PRN (Reason: constipation) aspirin 81 mg Tablet 81 mg PO DAILY polyethylene glycol 3350 [Miralax] 17 gram Powder In Packet 17 g PO QAM Qty: 30 0RF Follow-up/Referrals: Samson,KAMRAN Nair [Primary Care Provider] Time of Disposition: 10:20
[2025-03-07 09:20] VITALS: BP 161/102; PULSE 95; RESP 16; TEMP 36.4; O2SAT 99
--- NOTE | 2025-03-07 09:27 | PC.NURSE ---
0943 call to jelena [phone] for stemi. spoke with humza. blanka called for standby . spoke with dispatch to page out
--- NOTE | 2025-03-07 09:28 | PC.NURSE ---
stat heart paged overhead
--- NOTE | 2025-03-07 09:38 | ECG_ITS ---
Test Date: 2025-03-07 09:42:52 Measurements Intervals [place] Rate: 99 P: 50 [place]: 168 QRS: -9 QRSD: 94 T: 81 QT: 357 QTc: 459 Interpretive Statements SINUS RHYTHM ANTERIOR MYOCARDIAL INFARCTION, RECENT INFERIOR MYOCARDIAL INFARCTION , OF INDETERMINATE AGE [40+ ms Q WAVE AND/OR ST/T ABNORMALITY IN II/aVF] Compared to ECG 03/07/2025 09:21:30 No significant changes Electronically Signed On 03-08-2025 14:08:41 CDT by Jovi Kay M.D.
[2025-03-07 09:43] LABS: Hematocrit 41.9 % (35.0-49.0); Hemoglobin 13.5 g/dL (12.0-15.0); Immature Granulocyte Percent A 0.8 % (0.0-0.0); Lymphocytes Absolute Auto 2.03 K/mm3 (1.10-4.50); Mean Corpuscular HGB Conc 32.2 g/dL (32-36); Mean Corpuscular Hemoglobin 29.3 pg (27.0-31.0); Mean Corpuscular Volume 90.9 fL (78.0-102.0); Nucleated Red Blood Cells Absolute Auto 0.00 K/mm3 (0.00-0.00); Nucleated Red Blood Cells Perc 0.0 % (0-0.0); Platelet Count Result 233 K/mm3 (150-420); Red Blood Count 4.61 M/mm3 (4.20-5.40); White Blood Count 12.5 K/mm3 (4.8-10.8)
[2025-03-07] MEDS: ASPIRIN 81 MG CHEWABLE TABLET 324 MG PO (09:44)
[2025-03-07] MEDS: NITROGLYCERIN SL 0.4 MG TABLET SUBLINGUAL (09:45)
--- OUTSIDE RECORDS SUMMARY | 2025-03-07 09:47 | XMS_ITS | Clinical Summary ---
Author Organization [facility] Address [address] [place] [address] Care Team Providers Care Outbound Sales Specialist Name Role Phone Anjum Araiza MD Primary Care Provider Source Comments [facility],non-owned Affiliates and Associated Physician Practices is amultiple site organization consisting of ambulatory clinics and hospital sitesin [place], [place], [place] and [place]. This disclosure is being madepursuant to the Care Everywhere program and may not contain all information available regarding this patient. Last updated 18.[facility] Allergies Active Allergy Reactions Criticality Noted Date [...] medical care, and heating? Somewhat hard 01/20/2024 [facility] - Occupational Stress Questionnaire Answer [...] complete this topic Insurance MEDICAID - [place] [facility] * Guarantor: BRYAN VILLA Account Type Relation to Patient Date of Phone Billing Address Personal/Family [address] [place] [address] [facility] C[facility] MEDICAID - [place] * Guarantor: BRYAN VILLA Account Type Relation to Patient Date of Phone Billing Address Personal/Family [address] [place] [id number] MEDICAID - [place] Advance Directives * Full Code (Latest Code Status on File) Date Activated Date Inactivated Comments 01/20/2024 1:14 PM 01/25/2024 2:42 AM Care Teams Outbound Sales Specialist Relationship Specialty Start Date End Date Anjum Araiza MD [address] [place] [address] PCP - General Family Medicine 01/24/24
--- OUTSIDE RECORDS SUMMARY | 2025-03-07 09:47 | XMS_ITS | Clinical Summary ---
Author Organization [facility] Address [address] [place] [address] Phone Care Team Providers Care Fountain Helper Name Role Phone Anjum Araiza MD Primary Care Provider Allergies No known active allergies Medications citalopram [...] mg by mouth every 6 hours. rx [id number] Active pantoprazole (PROTONIX) 40 MG Tablet Delayed Response Take 40 mg by mouth daily. [id number] Active Probiotic Product (Daily Probiotic) Capsule Take 1 Tablet by mouth daily. Active metoclopramide (REGLAN) 10 MG Tablet Take 10 mg by mouth 2 times daily. 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
--- OUTSIDE RECORDS SUMMARY | 2025-03-07 09:48 | XMS_ITS | Encounter Summary ---
Author Organization [facility] Address [address] [place] [address] Phone Care Team Providers Care Liquid Compounder Name Role Phone Anjum Araiza MD Primary Care Provider [phone] Encounter Details Date Type Department Care Team (Late st Contact Info) Description 03/07/2024 Home Health Resumpti on of Care Planning [facility] [address] [place] [address] Social History Tobacco Use Types Packs/Day Years Used Date Smoking Tobacco: Never Assessed Comments Unknown Sex and Gender Information Value Date Recorded Sex Assigned at Not on file Legal Sex Female 2:53 PM APPLICATION SECURITY CONSULTANT Gender Identity Not on file Sexual Orientation Not on file documented as of this encounter Plan of Treatment Not on file documented as of this encounter Visit Diagnoses Not on filedocumented in this encounter Care Teams Liquid Compounder Relationship Specialty Start Date End Date Anjum Araiza MD [address] [place] [address] PCP - General Family Medicine 01/29/24 documented as of this encounter
--- OUTSIDE RECORDS SUMMARY | 2025-03-07 09:48 | XMS_ITS | Encounter Summary ---
Author Organization [facility] Address [address] [place] [address] Care Team Providers Care Broach Setter Name Role Phone Anjum Araiza MD Primary Care Provider [phone] Encounter Details Date Type Department Care Team (Late st Contact Info) Description 11/22/2018 Abstract SFL CONVERSION [address] [place] [address] , Generic Conversion, Social History Tobacco Use Types Packs/Day Years Used Date Smoking Tobacco: Never Assessed Comments Unknown Sex and Gender Information Value Date Recorded Sex Assigned at Female 06/23/2019 10:01 AM MANAGER MOBILITY Legal Sex Female 5:56 PM MANAGER MOBILITY Gender Identity Female 06/23/2019 10:01 AM MANAGER MOBILITY Sexual Orientation Not on file documented as of this encounter Plan of Treatment Not on file documented as of this encounter Visit Diagnoses Not on filedocumented in this encounter Care Teams Broach Setter Relationship Specialty Start Date End Date Anjum Araiza MD [address] [place] [phone] PCP - General FAMILY PRACTICE 06/18/19 documented as of this encounter
--- OUTSIDE RECORDS SUMMARY | 2025-03-07 09:48 | XMS_ITS | Clinical Summary ---
Author Organization [facility] Address [address] [place] [address] Care Team Providers Care Aluminum Pool Installer Name Role Phone Anjum Araiza MD Primary [...] gluteal, right 06/18/2019 Type II diabetes mellitus ([facility] HHS/HCC) Diabetic peripheral neuropathy (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 HEP B CORE IGM NON-REACTI VE NON-REACT YOUSIF 09/27/2017 10:11 AM CDT [facility] Comment: IgM ANTI HBc NOT DETECTED. DOES NOT EXCLUDE THE POSSIBILITY OF EXPOSURE TO OR INFECTION WITH HBV. NO RETEST REQUIRED. HAV IGM NON-REACTI VE NON-REACT [facility] 09/27/2017 10:11 AM CDT [facility] Comment: IgM ANTI HAV NOT DETECTED. DOES NOT EXCLUDE THE POSSIBILITY OF EXPOSURE TO OR INFECTION WITH HAV. LEVELS OF IgM ANTI HAV MAY BE BELOW THE CUTOFF IN EARLY INFECTION. HEPATITIS C AB NON-REACTI VE NON-REACT [facility] 09/27/2017 10:11 AM CDT [facility] Comment: ANTIBODIES TO HCV NOT DETECTED. DOES NOT EXCLUDE THE POSSIBILITY OF EXPOSURE TO HCV. 09/25/2017 1:19 PM CDT 09/25/2017 1:21 PM CDT us Generic Conversion [facility] Final R esult [facility] [address] [place] [address], [id number] from Last 3 Months or Most Recently Relevant to Health Maintenance Insurance [facility] MEDICAID MEDICAID Care Teams Aluminum Pool Installer Relationship Specialty Start Date End Date Anjum Araiza MD [address] [place] [address] PCP - General FAMILY PRACTICE 06/18/19
[2025-03-07 09:50] VITALS: BP 177/97; PULSE 100; RESP 16; O2SAT 100
[2025-03-07 09:51] LABS: Alanine Aminotransferase 12 U/L (6-35); Albumin Level 4.7 g/dL (3.5-5.1); Alkaline Phosphatase 98 U/L (38-126); Anion Gap 14 mmol/L (4-12); Aspartate Amino Transferase 19 U/L (14-36); Bilirubin,Total 0.5 mg/dL (0.2-1.3); Blood Urea Nitrogen 16 mg/dL (7-17); Calcium 10.3 mg/dL (8.4-10.2); Carbon Dioxide 23 mmol/L (22-30); Chloride 106 mmol/L (98-107); Estimated CRCL calculation 100 ml/min; Estimated Glomerular Filt Rate > 60; Glucose 267 mg/dL (65-110); Osmolality Calculated 306 mOsm/kg (285-295); Potassium 5.1 mmol/L (3.4-5.0); Sodium 143 mmol/L (137-145); Total Protein 9.1 g/dL (6.3-8.2)
[2025-03-07 09:51] LABS: Lipase 95 U/L (23-300)
[2025-03-07 09:52] LABS: INR < 0.8; Partial Thromboplastin Time 26.5 Sec (23.9-30.70); Prothrombin Time 9.1 Seconds (9.50-12.1)
[2025-03-07] MEDS: MORPHINE SULFATE (*CRX) 2 MG/ML INJ IV PUSH (09:52)
[2025-03-07 09:54] VITALS: BP 161/102; PULSE 95
[2025-03-07 10:00] LABS: NT Pro B Type Natriuretic Pept 2650 pg/mL (19.9-100)
[2025-03-07 10:04] LABS: Troponin I 0.247 ng/mL (0.000-0.034)
== END 2025-03-07 09:54 | disposition short-term general hospital (02) ==
PROVIDERS: Emergency Provider Emergency Medicine; PCP Physician Assistant
DX: I21.3 ST elevation (STEMI) myocardial infarction of unspecified site (principal); E11.9 Type 2 diabetes mellitus without complications; G82.20 Paraplegia, unspecified; E78.5 Hyperlipidemia, unspecified; F17.210 Nicotine dependence, cigarettes, uncomplicated; Z79.82 Long term (current) use of aspirin; Z79.899 Other long term (current) drug therapy; Z86.718 Personal history of other venous thrombosis and embolism
CPT/HCPCS: 36415; 71045; 80053; 83690; 83880; 84484; 85025; 85610; 85730; 93005; 96374; 96375; 99285; A9270; J1644; J2270

== ENCOUNTER 2025-03-07 10:19 | Inpatient (IN) | payer OTHER, MEDICAID, SELFPAY ==
[2025-03-07] VITALS (25 sets, daily range): BP systolic 126–181; BP diastolic 66–138; PULSE 74–109; RESP 10–21; TEMP 36.4–36.9; O2SAT 95–100; BMI 30.4
--- NOTE | 2025-03-07 10:26 | ED.CHESTPAIN ---
HPI - Chest Pain General Chief Complaint: Chest Pain Stated Complaint: STEMI Time Seen by Provider: 03/07/25 10:25 Source: patient Mode of arrival: EMS History of Present Illness HPI narrative: 44 years old white female transferred from [facility] ED to our emergency room with a diagnosis of STEMI. Patient was accepted by our house manager Dr. nickerson. On arrival to ED Dr. Nickerson was in the room to take patient to cardiac catheterization. Related Data Home Medications ?Medication ?Instructions ?Recorded ?Confirmed ?Last Taken ?Type aspirin 81 mg tablet 81 mg PO DAILY 02/10/24 02/26/25 06/02/24 History atorvastatin 40 mg tablet 40 mg PO QPM 11/30/24 02/26/25 Unknown History buspirone 10 mg tablet 10 mg PO BID PRN anxiety 11/30/24 02/26/25 Unknown History bisacodyl 10 mg rectal suppository 10 mg RECTAL QAM PRN constipation 02/26/25 02/26/25 Unknown History glipizide 5 mg tablet, extended 5 mg PO DAILY 02/26/25 02/26/25 Unknown History release 24 hr Allergies Allergy/AdvReac Type Severity Reaction Status Date / Time azithromycin Allergy Unknown Hives Verified 03/07/25 09:18 amoxicillin AdvReac Intermediate Hives Verified 03/07/25 09:18 Review of Systems Review of Systems: All systems reviewed & are unremarkable except as noted in HPI and below PMFSH Past Medical History Medical History Ischemic colitis Intractable nausea and vomiting Abnormality of rectum Paraplegia Clostridium difficile diarrhea Neurogenic bladder Hyperlipidemia Deep venous thrombosis Aortic thrombus Diabetic peripheral neuropathy Type 1 diabetes mellitus Spinal cord stroke Surgical History Surgical History History of partial amputation of toe 4th and 5th toe bilaterally History of aorto-femoral bypass [facility] Family History Family History Mother Acute myocardial infarction Diabetes mellitus Hypertension Father History of blood clots Social History Social History Social History: Surrogate medical decision maker: Ml Leonedi, mother. Code status: Full code. Smoking packs per day: 0.5 Smoking cigarettes per day: 10.0 Years smoked: 30 Smoking pack-years: 15.00 Smoking status: Current every day smoker Tobacco type: cigarettes Second hand tobacco smoke exposure: Yes Alcohol intake: former Substance use: current Substance use type: marijuana Other substance usage details: DAILY Do You Feel Safe in your Home?: Yes Lack of Transportation: No Lack of Food: Never True Current Housing: I Have Housing Concerned About Future Housing: No Difficulty Paying Gas/Electric Bills: No Difficulty Paying for Meds: No Currently Unemployed: No Education: Associate Degree Difficulty w/ Childcare or Family Care: No Living arrangements: with family Additional living arrangements comments: Lives with spouse and children in [place]. Spiritual care concerns: No Exam Narrative: General appearance: Well-developed, well-nourished Skin: Normal color Head: Normocephalic, nontraumatic Eyes: Clear conjunctiva ENT: Oropharynx normal, ears normal, nose normal Neck: Supple, nontender Chest and respiratory: Airway patent, no respiratory distress, no accessory muscle use Heart: Regular rate/rhythm Abdomen: Soft, nontender, no organomegaly, quiet bowel sounds Vascular: Normal peripheral pulses, normal capillary refill. Musculoskeletal: Normal range of motion, nontender back Neurologic: Alert and oriented ?3, COMPLETION SUPERVISOR is normal as tested, no gross motor deficit Course Vital Signs Vital signs: Vital Signs Temperature 36.7 C 03/07/25 10:20 Pulse Rate 109 H 03/07/25 10:20 Respiratory Rate 12 03/07/25 10:20 Blood Pressure 158/87 H 03/07/25 10:20 Pulse Oximetry 100 03/07/25 10:20 Oxygen Delivery Room Air 03/07/25 10:20 Temperature 36.7 C 03/07/25 10:20 Pulse Rate 109 H 03/07/25 10:20 Respiratory Rate 12 03/07/25 10:20 Blood Pressure 158/87 H 03/07/25 10:20 Pulse Oximetry 100 03/07/25 10:20 Oxygen Delivery Room Air 03/07/25 10:20 MDM - Chest Pain MDM Narrative Medical decision making narrative: Patient came to the ED with diagnosis of acute STEMI, within few minutes patient went to cardiac catheterization/Dr. nickerson Differential Diagnosis Differential diagnosis: Likely chest pain Medical Records Data Attestation: I reviewed the patient's medical records. Lab Data Attestation: I reviewed the patient's lab results. Critical Care Time Critical Care Time Critical Care Time: No Discharge Plan Discharge Clinical Impression: Chest pain Patient Disposition: Still a Patient Condition: Stable Patient Language: Namibian Prescriptions: No Action atorvastatin 40 mg tablet 40 mg PO QPM buspirone 10 mg tablet 10 mg PO BID PRN (Reason: anxiety) Patient Comments: not taking clonazepam [Klonopin] 0.5 mg tablet 0.5 mg PO BID PRN (Reason: anxiety) Qty: 10 0RF Patient Comments: 1mg bid prn Rx Instructions: administer 30 minutes before bedtime glipizide 5 mg tablet extended release 24hr 5 mg PO DAILY bisacodyl 10 mg Suppository 10 mg RECTAL QAM PRN (Reason: constipation) aspirin 81 mg Tablet 81 mg PO DAILY polyethylene glycol 3350 [Miralax] 17 gram Powder In Packet 17 g PO QAM Qty: 30 0RF Follow-up/Referrals: UNKNOWN,DOCTOR [Non-Staff]
--- NOTE | 2025-03-07 10:29 | ECG_ITS ---
Test Date: 2025-03-07 10:32:14 Measurements Intervals [place] Rate: 88 P: 51 MO: 187 QRS: 13 QRSD: 89 T: 77 QT: 374 QTc: 455 Interpretive Statements SINUS RHYTHM POSSIBLE LEFT ATRIAL ENLARGEMENT [-0.1mV P WAVE IN V1/V2] ANTERIOR MYOCARDIAL INFARCTION , PROBABLY RECENT [40+ ms Q WAVE AND/OR ST/T ABNORMALITY IN V3/V4] POSSIBLE INFERIOR MYOCARDIAL INFARCTION , PROBABLY OLD [30 ms Q WAVE IN II/aVF] ACUTE [place] Compared to ECG 03/07/2025 09:42:52 No significant changes Electronically Signed On 03-08-2025 14:08:58 CDT by Jovi Kay M.D.
--- NOTE | 2025-03-07 10:38 | PM.IMHP ---
H&P: HPI History of Present Illness Date/Time: 03/07/25 10:38 Chief Complaint: Chest pain Narrative: 44-year-old woman with aortic pathology status post aorto bi-iliac bypass surgery complicated by T10 nerve ischemia who has recently started working physical therapy to regain function of her legs, history of stroke, strong family history of cardiac conditions, and diabetes presents with chest pain. Chest pain woke her up around 3:00 a.m. this morning and is pressure-like in sensation radiation to both arms and neck. She continued to have pain prompting emergency room visit. Previously did not have this type of pain while working with physical therapy. At [place] [facility] she was found to have an ischemic EKG and was transferred for anterior STEMI. Currently chest pain has subsided substantially right sublingual nitroglycerin however still has residual mild pain. No shortness of breath or bleeding issues. Review of Systems Cardiovascular: Cardiovascular: Reports as per HPI Respiratory: Respiratory: Reports as per HPI [facility] Past Medical History Medical History Ischemic colitis Intractable nausea and vomiting Abnormality of rectum Paraplegia Clostridium difficile diarrhea Neurogenic bladder Hyperlipidemia Deep venous thrombosis Aortic thrombus Diabetic peripheral neuropathy Type 1 diabetes mellitus Spinal cord stroke Surgical History Surgical History History of partial amputation of toe 4th and 5th toe bilaterally History of aorto-femoral bypass [facility] Family History Family History Mother Acute myocardial infarction Diabetes mellitus Hypertension Father History of blood clots Social History Social History Social History: Surrogate medical decision maker: Ml Aguilar, mother. Code status: Full code. Smoking packs per day: 0.5 Smoking cigarettes per day: 10.0 Years smoked: 30 Smoking pack-years: 15.00 Smoking status: Current every day smoker Tobacco type: cigarettes Second hand tobacco smoke exposure: Yes Alcohol intake: former Substance use: current Substance use type: marijuana Other substance usage details: DAILY Do You Feel Safe in your Home?: Yes Lack of Transportation: No Lack of Food: Never True Current Housing: I Have Housing Concerned About Future Housing: No Difficulty Paying Gas/Electric Bills: No Difficulty Paying for Meds: No Currently Unemployed: No Education: Associate Degree Difficulty w/ Childcare or Family Care: No Living arrangements: with family Additional living arrangements comments: Lives with spouse and children in [place]. Spiritual care concerns: No Meds Home Medications and Allergies Home Medications ?Medication ?Instructions ?Recorded ?Confirmed ?Type aspirin 81 mg tablet 81 mg PO DAILY 02/10/24 02/26/25 History polyethylene glycol 3350 17 gram 17 g PO QAM #30 ea 05/21/24 02/26/25 Rx oral powder packet (Miralax) atorvastatin 40 mg tablet 40 mg PO QPM 11/30/24 02/26/25 History buspirone 10 mg tablet 10 mg PO BID PRN anxiety 11/30/24 02/26/25 History clonazepam 0.5 mg tablet (Klonopin) 0.5 mg PO BID PRN anxiety #10 tabs 11/30/24 02/26/25 Rx bisacodyl 10 mg rectal suppository 10 mg RECTAL QAM PRN constipation 02/26/25 02/26/25 History glipizide 5 mg tablet, extended 5 mg PO DAILY 02/26/25 02/26/25 History release 24 hr Allergies Allergy/AdvReac Type Severity Reaction Status Date / Time azithromycin Allergy Unknown Hives Verified 03/07/25 09:18 amoxicillin AdvReac Intermediate Hives Verified 03/07/25 09:18 Vital Signs Vital Signs - 24 hr 03/07/25 10:20 03/07/25 10:33 Temperature 36.7 C Pulse Rate 109 H Respiratory Rate 12 Blood Pressure 158/87 H Pulse Oximetry 100 99 Oxygen Delivery Room Air Room Air Exam Const: General: comfortable HENMT: Mouth: Yes moist mucous membranes Eyes: EOM: EOMs intact bilaterally Neck: Neck: no JVD Resp: Effort & Inspection: normal respiratory effort Auscultation: clear to auscultation bilaterally Cardio: Rate: tachycardic Rhythm: regular rhythm Extrem: General: no pedal edema Assessment and Plan Assessment and plan (1) ST elevation (STEMI) myocardial infarction: Qualifiers: Involved coronary artery: unspecified coronary artery Qualified Code(s): I21.3 - ST elevation (STEMI) myocardial infarction of unspecified site Code(s): I21.3 - ST elevation (STEMI) myocardial infarction of unspecified site Status: Acute Plan 44-year-old woman with aortic pathology status post aorto bi-iliac bypass surgery complicated by T10 nerve ischemia who has recently started working physical therapy to regain function of her legs, history of stroke, strong family history of cardiac conditions, and diabetes presents with chest pain whose clinical presentation is concerning for high risk acute coronary syndrome Acute coronary syndrome -active chest pain and proceed with cardiac catheterization emergently -the risks, benefits, alternatives have been discussed with the patient who has agreed to proceed for with cardiac catheterization with possible PCI -echocardiogram
--- OUTSIDE RECORDS SUMMARY | 2025-03-07 10:40 | XMS_ITS | Encounter Summary ---
Author Organization [facility] Address [address] [place] [address] Care Team Providers Care Delivery Crew Member Name Role Phone Anjum Araiza MD Primary Care Provider [phone] Encounter Details Date Type Department Care Team (Late st Contact Info) Description 11/22/2018 Abstract SFL CONVERSION [address] [place] [address] , Generic Conversion, Social History Tobacco Use Types Packs/Day Years Used Date Smoking Tobacco: Never Assessed Comments Unknown Sex and Gender Information Value Date Recorded Sex Assigned at Female 06/23/2019 10:01 AM LINE CONSTRUCTION SUPERVISOR Legal Sex Female 5:56 PM LINE CONSTRUCTION SUPERVISOR Gender Identity Female 06/23/2019 10:01 AM LINE CONSTRUCTION SUPERVISOR Sexual Orientation Not on file documented as of this encounter Plan of Treatment Not on file documented as of this encounter Visit Diagnoses Not on filedocumented in this encounter Care Teams Delivery Crew Member Relationship Specialty Start Date End Date Anjum Araiza MD [address] [place] [phone] PCP - General FAMILY PRACTICE 06/18/19 documented as of this encounter
--- OUTSIDE RECORDS SUMMARY | 2025-03-07 10:40 | XMS_ITS | Clinical Summary ---
Author Organization [facility] Address [address] [place] [address] Care Team Providers Care Used Car Make Ready Worker Name Role Phone Anjum Araiza MD [...] gluteal, right 06/18/2019 Type II diabetes mellitus ([facility] HHS/HCC) Diabetic peripheral neuropathy ([facility]HS/HCC) Mixed hyperlipidemia Benign essential hypertension Tobacco [...] Sex Assigned at Female 06/23/2019 10:01 AM GAMING CAGE WORKER Legal Sex Female 5:56 PM GAMING CAGE WORKER Gender Identity Female 06/23/2019 10:01 AM GAMING CAGE WORKER Sexual Orientation Not on file Last Filed [...] HPV 2012 Mammogram Screening 2022 PHQ-2 (Physician [place]) 06/17/2024 COVID-19 Vaccine ( season) 2025 Hepatitis [...] NON-REACT YOUSIF 09/27/2017 10:[address] [facility] Comment:HBsAg NOT DETECTED. HEP B CORE IGM NON-REACTI VE NON-REACT YOUSIF 09/27/2017 10:[address] [facility] Comment: IgM ANTI HBc NOT DETECTED. DOES NOT EXCLUDE THE POSSIBILITY OF EXPOSURE TO OR INFECTION WITH HBV. NO RETEST REQUIRED. HAV IGM NON-REACTI VE NON-REACT [facility] 09/27/2017 10:[address] [facility] Comment: IgM ANTI HAV NOT DETECTED. DOES NOT EXCLUDE THE POSSIBILITY OF EXPOSURE TO OR INFECTION WITH HAV. LEVELS OF IgM ANTI HAV MAY BE BELOW THE CUTOFF IN EARLY INFECTION. HEPATITIS C AB NON-REACTI VE NON-REACT [facility] 09/27/2017 10:[address] [facility] Comment: ANTIBODIES TO HCV NOT DETECTED. DOES NOT EXCLUDE THE POSSIBILITY OF EXPOSURE TO HCV. 09/25/2017 1:19 PM CDT 09/25/2017 1:21 PM CDT us Generic Conversion Md [facility] Final R esult [facility] [address] [place] [address], [id number] from Last 3 Months or Most Recently Relevant to Health Maintenance Insurance [facility] MEDICAID MEDICAID Care Teams Used Car Make Ready Worker Relationship Specialty Start Date End Date Anjum Araiza MD [address] [place] [address] PCP - General FAMILY PRACTICE 06/18/19
--- OUTSIDE RECORDS SUMMARY | 2025-03-07 10:40 | XMS_ITS | Clinical Summary ---
Author Organization [facility] Address [address] [place] [address] Phone Care Team Providers Care Advertising Assistant Manager Name Role Phone Anjum Araiza MD Primary Care Provider [phone] Allergies No known active allergies Medications citalopram [...] mg by mouth every 6 hours. rx [id number] 4 Active pantoprazole (PROTONIX) 40 MG Tablet Delayed Response Take 40 mg by mouth daily. [id number] Active Probiotic Product (Daily Probiotic) Capsule Take 1 Tablet by mouth daily. Active metoclopramide (REGLAN) 10 MG Tablet Take 10 mg by mouth 2 times daily. [id number] Active Social History Tobacco Use Types Packs/Day Years Used Date Smoking Tobacco: Never Assessed Comments Unknown Sex and Gender Information Value Date Recorded Sex Assigned at Not on file Legal Sex Female 2:53 PM SHOE SPRAYER Gender Identity Not on file Sexual Orientation [...] Inactivated Comments 03/09/2024 10:03 AM Care Teams Advertising Assistant Manager Relationship Specialty Start Date End Date Anjum Araiza MD [address] [phone] PCP - General Family Medicine 01/29/24
--- OUTSIDE RECORDS SUMMARY | 2025-03-07 10:40 | XMS_ITS | Clinical Summary ---
Author Organization [facility] [email or web address] Address [address] [place] [address] Care Team Providers Care Communication Coordinator Name Role Phone Anjum Araiza MD Primary Care Provider [phone] Source Comments [facility] [email or web address],non-owned Affiliates and Associated Physician Practices is amultiple site organization consisting of ambulatory clinics and hospital sitesin [place], [place], [place] and [place]. This disclosure is being madepursuant to the Care Everywhere program and may not contain all information available regarding this patient. Last updated 18.[facility] [email or web address] Allergies Active Allergy Reactions Criticality Noted Date [...] medical care, and heating? Somewhat hard 01/20/2024 [facility] - Occupational Stress Questionnaire Answer Date [...] place to sleep or slept in a correction (including now)? No 01/20/2024 Comments Unknown Sex [...] complete this topic Insurance MEDICAID - [place] [facility] * Guarantor: BRYAN VILLA Account Type Relation to Patient Date of Phone Billing Address Personal/Family [address] [place] [address] [facility] MEDICAID - [place] * Guarantor: BRYAN VILLA Account Type Relation to Patient Date of Phone Billing Address Personal/Family [address] [place] [address] MEDICAID - [place] Advance Directives * Full Code (Latest Code Status on File) Date Activated Date Inactivated Comments 01/20/2024 1:14 PM 01/25/2024 2:42 AM Care Teams Communication Coordinator Relationship Specialty Start Date End Date Anjum Araiza MD [address] [place] [address] PCP - General Family Medicine 01/24/24
--- OUTSIDE RECORDS SUMMARY | 2025-03-07 10:40 | XMS_ITS | Encounter Summary ---
Author Organization [facility] Address [address] [place] [address] Phone Care Team Providers Care Buccaro Name Role Phone Anjum Araiza MD Primary Care Provider [phone] Encounter Details Date Type Department Care Team (Late st Contact Info) Description 03/07/2024 Home Health Resumpti on of Care Planning [facility] [address] [place] [address] Social History Tobacco Use Types Packs/Day Years Used Date Smoking Tobacco: Never Assessed Comments Unknown Sex and Gender Information Value Date Recorded Sex Assigned at Not on file Legal Sex Female 2:53 PM EDUCATION ANALYST Gender Identity Not on file Sexual Orientation Not on file documented as of this encounter Plan of Treatment Not on file documented as of this encounter Visit Diagnoses Not on filedocumented in this encounter Care Teams Buccaro Relationship Specialty Start Date End Date Anjum Araiza MD [address] [place] [address] PCP - General Family Medicine 01/29/24 documented as of this encounter
[2025-03-07 10:41] LABS: Hematocrit 41.5 % (37.0-47.0); Hemoglobin 13.6 g/dL (12.0-15.0); Immature Granulocyte Percent A 0.9 % (0-0.5); Lymphocytes Absolute Auto 1.94 K/mm3 (0.9-3.2); Mean Corpuscular HGB Conc 32.8 g/dl (32-36); Mean Corpuscular Hemoglobin 29.2 pg (26-34); Mean Corpuscular Volume 89.2 fl (80-100); Nucleated Red Blood Cells Absolute Auto 0.000 K/mm3 (0.0-0.012); Nucleated Red Blood Cells Perc 0.0 % (0.0-0.2); Platelet Count Result 233 k/mm3 (150-375); Red Blood Count 4.65 M/mm3 (4.2-5.4); White Blood Count 13.0 K/mm3 (4.5-10.0)
--- NOTE | 2025-03-07 10:42 | WPDHPUPDATE1 ---
History and Physical Update Update Date/Time: 03/07/25 10:42 History and Physical has been reviewed, including an updated exam of the patient. There are NO changes in the patient's condition. Risks, benefits, and alternatives have been discussed and questions answered. Patient agrees to proceed with procedure.
--- NOTE | 2025-03-07 10:42 | WPDMODSED ---
Moderate Sedation Note-Pt Data Patient Data Allergies Allergy/AdvReac Type Severity Reaction Status Date / Time azithromycin Allergy Unknown Hives Verified 03/07/25 09:18 amoxicillin AdvReac Intermediate Hives Verified 03/07/25 09:18 Home Medications ?Medication ?Instructions ?Recorded ?Confirmed ?Type aspirin 81 mg tablet 81 mg PO DAILY 02/10/24 02/26/25 History polyethylene glycol 3350 17 gram 17 g PO QAM #30 ea 05/21/24 02/26/25 Rx oral powder packet (Miralax) atorvastatin 40 mg tablet 40 mg PO QPM 11/30/24 02/26/25 History buspirone 10 mg tablet 10 mg PO BID PRN anxiety 11/30/24 02/26/25 History clonazepam 0.5 mg tablet (Klonopin) 0.5 mg PO BID PRN anxiety #10 tabs 11/30/24 02/26/25 Rx bisacodyl 10 mg rectal suppository 10 mg RECTAL QAM PRN constipation 02/26/25 02/26/25 History glipizide 5 mg tablet, extended 5 mg PO DAILY 02/26/25 02/26/25 History release 24 hr Sedation/Anesthesia: No previous sedation/anesthesia problems (including family history). [facility] Past Medical History Medical History Ischemic colitis Intractable nausea and vomiting Abnormality of rectum Paraplegia Clostridium difficile diarrhea Neurogenic bladder Hyperlipidemia Deep venous thrombosis Aortic thrombus Diabetic peripheral neuropathy Type 1 diabetes mellitus Spinal cord stroke Surgical History Surgical History History of partial amputation of toe 4th and 5th toe bilaterally History of aorto-femoral bypass [facility] Family History Family History Mother Acute myocardial infarction Diabetes mellitus Hypertension Father History of blood clots Social History Social History Social History: Surrogate medical decision maker: Ml Aguilar, mother. Code status: Full code. Smoking packs per day: 0.5 Smoking cigarettes per day: 10.0 Years smoked: 30 Smoking pack-years: 15.00 Smoking status: Current every day smoker Tobacco type: cigarettes Second hand tobacco smoke exposure: Yes Alcohol intake: former Substance use: current Substance use type: marijuana Other substance usage details: DAILY Do You Feel Safe in your Home?: Yes Lack of Transportation: No Lack of Food: Never True Current Housing: I Have Housing Concerned About Future Housing: No Difficulty Paying Gas/Electric Bills: No Difficulty Paying for Meds: No Currently Unemployed: No Education: Associate Degree Difficulty w/ Childcare or Family Care: No Living arrangements: with family Additional living arrangements comments: Lives with spouse and children in [place]. Spiritual care concerns: No Mod Sed Physical Exam Physical Exam Pre Procedural Exam: Normal: Lungs and Heart Rhythm and Variation: Heart Rate (tachycardic) and Neuro Exam (weak lower extremity) Hours since solid foods: 12 Hours since liquid intake: 12 Mallampati Classification: class II Internal Medicine - PN: Obj Da Vital Signs Vital Signs: Vital Signs - 24 hr 03/07/25 10:20 03/07/25 10:33 Temperature 36.7 C Pulse Rate 109 H Respiratory Rate 12 Blood Pressure 158/87 H Pulse Oximetry 100 99 Oxygen Delivery Room Air Room Air Labs 03/07/25 10:34 03/07/25 10:34 Labs: Laboratory Results - last 24 hr 03/07/25 10:34 WBC 13.0 H RBC 4.65 Hgb 13.6 D Hct 41.5 MCV 89.2 MCH 29.2 MCHC 32.8 RDW 13.4 Plt Count 233 MPV 10.6 H Immature Gran % (Auto) 0.9 H Neut % (Auto) 75.9 H Lymph % (Auto) 14.9 L [place] % (Auto) 4.3 Eos % (Auto) 3.2 Baso % (Auto) 0.8 Lymph # (Auto) 1.94 [place] # (Auto) 0.6 Eos # (Auto) 0.4 H Baso # (Auto) 0.1 Abs Immat Gran (auto) 0.12 H Absolute Neuts (auto) 9.9 H Absolute Nucleated RBC 0.000 Nucleated RBC % 0.0 ASA Classification/Sedation ASA Classification/Sedation ASA Class: IV Emergent: Yes Risks: Risks, benefits and alternatives explained and patient/family accepted plan for sedation. Patient re-evaluated immediately prior to sedation.
[2025-03-07 10:52] LABS: INR 1.0; Prothrombin Time 12.7 Seconds (11.1-14.7)
[2025-03-07 10:54] LABS: Partial Thromboplastin Time 63.2 Seconds (22.3-36.8)
[2025-03-07 10:55] LABS: Alanine Aminotransferase 15 U/L (6-35); Albumin Level 4.4 g/dL (3.5-5.1); Alkaline Phosphatase 137 U/L (38-126); Anion Gap 14 mmol/L (4-12); Aspartate Amino Transferase 21 U/L (14-36); Bilirubin,Total 0.4 mg/dL (0.2-1.3); Blood Urea Nitrogen 16 mg/dL (7-17); Calcium 9.5 mg/dL (8.4-10.2); Carbon Dioxide 16 mmol/L (22-30); Chloride 107 mmol/L (98-107); Cholesterol 221 mg/dL (0-200); Estimated CRCL calculation 119 ml/min; Estimated Glomerular Filt Rate > 60; Glucose 266 mg/dL (65-110); HDL Direct 42 mg/dL; Potassium 4.1 mmol/L (3.4-5.0); Sodium 137 mmol/L (137-145); Total Protein 7.9 g/dL (6.3-8.2); Triglycerides 214 mg/dL (<150)
[2025-03-07 11:37] LABS: Troponin I 0.304 ng/mL (0.000-0.034)
--- NOTE | 2025-03-07 12:11 | WPDCNINT ---
Assessment and Plan Assessment and plan (1) ST elevation (STEMI) myocardial infarction: Qualifiers: Involved coronary artery: unspecified coronary artery Qualified Code(s): I21.3 - ST elevation (STEMI) myocardial infarction of unspecified site Code(s): I21.3 - ST elevation (STEMI) myocardial infarction of unspecified site Status: Acute Assessment and Plan: STEMI status post PCI and stent placement as above Admit to ICU and ICU telemetry monitoring Check echocardiogram Dual antiplatelet therapy, statin, beta-ed, losartan Pain control Check echocardiogram (2) Hyperlipidemia: Code(s): E78.5 - Hyperlipidemia, unspecified Status: Acute Assessment and Plan: Continue Lipitor (3) Diabetes mellitus: Code(s): E11.9 - Type 2 diabetes mellitus without complications Status: Acute Assessment and Plan: Sliding scale insulin Resume glipizide (4) Paraplegia: Code(s): G82.20 - Paraplegia, unspecified Status: Chronic Assessment and Plan: Chronic paraplegia Patient self catheterizes at home. Will place Marcos catheter this time (5) Hypertension: Code(s): I10 - Essential (primary) hypertension Status: Acute Assessment and Plan: Blood pressure is elevated you partly can be secondary to pain. Patient has been started on Coreg and I will add losartan. Monitor and adjust accordingly Plan DVT prophylaxis -will start Lovenox from tomorrow patient has received heparin today Nutrition -diet or Code Status - Full Code Total Critical Care Time - 30 minutes Due to a high probability of clinically significant, life threatening deterioration, the patient required my highest level of preparedness to intervene emergently and I personally spent this critical care time directly and personally managing the patient. This critical care time included obtaining a history; examining the patient; pulse oximetry; ordering and review of studies; arranging urgent treatment with development of a management plan; evaluation of patient's response to treatment; frequent reassessment; and discussions with other providers. It was exclusive of separately billable procedures and treating other patients and teaching time. 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 Patient was diagnosed with ST segment elevation NE and transferred to [facility] [place] ER from where patient was taken to cardiac catheterization lab. Cardiac catheterization was done through right radial artery and patient was given significant amount of fentanyl for pain and Versed for sedation. She had LVEDP of 48. She had 2 stents placed in circumflex and 1 in LAD. At this time patient states her pain is better but not fully resolved she states pain is 8 out 10. She states the pain started around 3:00 a.m. she woke up. It was 10 out 10 severe, located center of chest, radiated to both arms and neck, dull achy in quality, associated with nausea but no vomiting. No shortness of breath palpitation loss of consciousness dizziness or lightheadedness.. She stays his pain now is better and slightly dissimilar. She denies any radiation at this time. No palpitation shortness of breath or nausea at this time. Review of system is positive for constipation. Also positive for inability to move both legs for the most part. She can move her legs slightly at the hips when she is s laying on her side, she had a decubitus wound which he states has healed and only scab left now. All other systems were reviewed and were negative PMFSH Past Medical History Medical History Ischemic colitis Intractable nausea and vomiting Abnormality of rectum Paraplegia Clostridium difficile diarrhea Neurogenic bladder Hyperlipidemia Deep venous thrombosis Aortic thrombus Diabetic peripheral neuropathy Type 1 diabetes mellitus Spinal cord stroke Surgical History Surgical History History of partial amputation of toe 4th and 5th toe bilaterally History of aorto-femoral bypass [facility] Family History Family History Mother Acute myocardial infarction Diabetes mellitus Hypertension Father History of blood clots Social History Social History Social History: Surrogate medical decision maker: Ml Aguilar, mother. Code status: Full code. Smoking packs per day: 1 Smoking cigarettes per day: 20.0 Years smoked: 30 Smoking pack-years: 30.00 Smoking status: Current every day smoker Tobacco type: cigarettes Second hand tobacco smoke exposure: Yes Alcohol intake: never Substance use: current Substance use type: marijuana Other substance usage details: DAILY Do You Feel Safe in your Home?: Yes Lack of Transportation: No Lack of Food: Never True Current Housing: I Have Housing Concerned About Future Housing: No Difficulty Paying Gas/Electric Bills: No Difficulty Paying for Meds: No Currently Unemployed: No Education: Associate Degree Difficulty w/ Childcare or Family Care: No Living arrangements: with family Additional living arrangements comments: Lives with spouse and children in [place]. Spiritual care concerns: Yes Meds Home Medications and Allergies Home Medications ?Medication ?Instructions ?Recorded ?Confirmed ?Type aspirin 81 mg tablet 81 mg PO DAILY 02/10/24 03/07/25 History polyethylene glycol 3350 17 gram 17 g PO QAM #30 ea 05/21/24 03/07/25 Rx oral powder packet (Miralax) atorvastatin 40 mg tablet 40 mg PO QPM 11/30/24 03/07/25 History clonazepam 0.5 mg tablet (Klonopin) 1 mg PO BID PRN anxiety 03/07/25 03/07/25 History glipizide 5 mg tablet, extended 5 mg PO DAILY 03/07/25 03/07/25 History release 24 hr Allergies Allergy/AdvReac Type Severity Reaction Status Date / Time azithromycin Allergy Unknown Hives Verified 03/07/25 13:44 amoxicillin AdvReac Intermediate Hives Verified 03/07/25 13:44 Vital Signs Vital Signs - 24 hr 03/07/25 10:20 03/07/25 10:33 Temperature 36.7 C Pulse Rate 109 H Respiratory Rate 12 Blood Pressure 158/87 H Pulse Oximetry 100 99 Oxygen Delivery Room Air Room Air Exam Narrative: General: Pt is alert awake and in NAD Lungs/Chest: Trachea central Clear BS B/L, No crackles or wheezing. Cardiac: RRR. Normal S1 S2. No murmurs Circulation: Pedal pulses are intact and symmetrical. Abdomen: Normal bowel sounds.. Soft. NT. ND. Extremities: No edema. TR band on right wrist, right radial pulse is palpable distal to TR band. Both hands are cold. : Marcos in place with clear urine output Neurologic: Follows commands. AO x3 PERRL, she is able to move both her hands but not the legs. She does have a sensation to touch intact in both feet Skin: No Rash, several tattoos Results Labs 03/07/25 10:34 03/07/25 10:34 Labs: Short CBC 03/07/25 Range/Units 10:34 WBC 13.0 H (4.5-10.0) K/mm3 Hgb 13.6 D (12.0-15.0) g/dL Hct 41.5 (37.0-47.0) % Plt Count 233 (150-375) k/mm3 BMP 03/07/25 10:34 Sodium 137 Potassium 4.1 Chloride 107 Carbon Dioxide 16 L BUN 16 Creatinine 0.67 L Glucose 266 H Calcium 9.5 Cardiac Enzymes 03/07/25 Range/Units 10:34 Troponin I 0.304 H* D (0.000-0.034) ng/mL Liver Function 03/07/25 Range/Units 10:34 Total Bilirubin 0.4 (0.2-1.3) mg/dL AST 21 (14-36) U/L ALT 15 (6-35) U/L Alkaline Phosphatase 137 H (38-126) U/L Albumin 4.4 (3.5-5.1) g/dL Imaging Radiologist's impression: Chest x-ray were negative for any acute cardiopulmonary process Quality VTE Prophylaxis VTE prophylaxis: pharmacologic ordered Hospitalist MIPS Advance Care Plan I have confirmed that the patient's Advanced Care Plan is present, code status is documented, or surrogate decision maker is listed in patient medical record.: Yes Medication Reconciliation I have utilized all available resources to obtain, update and review the patients current medications (includes all prescriptions, OTC, herbals, cannabis, and nutritional supplements).: Yes
--- NOTE | 2025-03-07 12:39 | WPDCARDPROC ---
Cardiac Cath Procedure Note Date of procedure:: 03/07/25 Performing physician:: CATHETERIZATION LABORATORY REPORT Procedure Date: 03/07/2025 Referring Physician: Dr. Calero Anesthesia: Versed and Fentanyl were ordered and given in my presence at 1053, procedure ended at 1231. Supervision of nurse, Ender Mccray monitored moderate sedation with 4mg Versed and 500mcg Fentanyl was provided for 98 minutes. Pre-op Diagnosis: Acute coronary syndrome Post-op Diagnosis: NSTEMI Procedure(s): Left heart catheterization with coronary angiography Percutaneous coronary intervention, initial vessel Percutaneous coronary intervention, subsequent vessel PTCA to branch vessel Intravascular ultrasound, initial vessel Intravascular ultrasound, subsequent vessel Moderate sedation Access Site: Right radial artery Brief History and Clinical Indications: 44-year-old woman with aortic pathology status post aorto bi-iliac bypass surgery complicated by T10 nerve ischemia who has recently started working physical therapy to regain function of her legs, history of stroke, strong family history of cardiac conditions, and diabetes presents with chest pain whose clinical presentation was concerning for high risk acute coronary syndrome for which cardiac catheterization with possible PCI was emergently recommended All risks, benefits and alternatives to left heart catheterization with or without percutaneous coronary intervention was discussed at length with the patient. Risk of complications including but not limited to bleeding, infection, arrhythmia, stroke, worsening kidney function, blood loss, groin hematoma, limb loss, emergency coronary artery bypass grafting, and even were discussed with the patient and all questions were answered. The patient understood and wished to proceed. Time out called, patient name, date of , medical record number, allergies, procedure performed, identify Market Research Interviewer, patient and staff member concurred with accurate data, procedure carried on. Findings: LEFT HEART CATHETERIZATION FINDINGS: 1. Left main: The left main coronary artery is widely patent without any significant obstructive disease. 2. Left anterior descending: The LAD is a large caliber vessel. The proximal LAD has luminal irregularities. The mid LAD has 70% stenosis that continues on to become a 90% stenosis right after a diagonal branch. The ostium of the diagonal branch has 50% stenosis. 3. Left circumflex: The left circumflex artery is a large caliber nondominant vessel that provides 1 OM branch. The OM1 branch distally has 20-30% stenosis. The ostial and proximal left circumflex has 10-20% stenosis. The left circumflex after the takeoff of the 1st OM branch has an area of 90% stenosis followed shortly by a long segment of 80-90% stenosis. The remainder of the left circumflex provides a moderate size territory. 4. Right coronary artery: The RCA is a moderate caliber size vessel that is dominant with 20-30% distal stenosis. The right posterior lateral branch is small caliber vessel with diffuse 60% stenosis. The right PDA has diffuse 50% stenosis distally. 5. Left ventricle: A. End-diastolic pressure 48 mmHg. B. LV gram deferred. C. No significant gradient across aortic valve on catheter pullback. 6. Opening AO pressure 128/73 and closing AO pressure 196/99 Description of Procedure: Informed consent signed and placed in the chart. Patient transferred to labor relations analyst room. Prepped and draped in usual sterile fashion. 2% lidocaine injected subcutaneously in right wrist area. 22-gauge venipuncture catheter used to access the right radial artery with the Seldinger technique. 6-FR slender sheath placed in right radial artery. Nitroglycerin 200mcg, Verapamil 2.5mg, and Heparin 5000U was given intraarterial through the sheath. J wire advanced under fluoroscopy. 5F JL3.5 diagnostic catheter engaged Left Main Coronary Artery. 5F JR4 diagnostic catheter engaged Right Coronary Artery. Multiple orthogonal angiogram obtained and reviewed. Procedure Description for PCI: Heparin was used for anticoagulation (ACT maintained above 250) Patient loaded with heparin at 70 units/kg. 6F EBU 3.5 guide catheter was used to engage the LMCA. 0.014 Runthrough coronary wire was passed in to the distal LAD. IVUS was used to assess the vessel and no dissection were seen. IVUS measurements were made. The lesion was pre-dilated serially from distal to proximal with a 2.5 x 15mm balloon inflated to high DANNY. A 3.5 x 30mm [place] SOWMYA was then deployed into the mid LAD with an area of underexpansion. The diagonal branch ostium appeared worsened. The Runthrough wire was pulled back and negotiated into the diagonal branch. A second Runthrough wire was negotiated into the distal LAD. The diagonal branch ostium was treated with a 2.0 x 15mm NC balloon with good results. The remainder of the LAD was post dilated with a 4.0 x 15mm NC. Attempt was made for KBI however, the catheter size would not accommodate both balloons. IC nitroglycerin was given. Coronary wires were retrieved into the left main coronary artery and angiography demonstrated good angiographic results of the LAD. At this point, the run-through was then negotiated into the distal left circumflex. An IVUS was attempted to be negotiated into the distal left circumflex however could not traverse the final lesion. Measurements were made. The lesion was serially pre-dilated with a 3.0 x 20mm balloon followed by deployment of overlapping 3.5 x 38mm Robert [place] and 3.5 x 18mm [place] SOWMYA; post dilated with 4.0 x 20mm NC. The proximal stent had a small area of underexpansion which was further post dilated with a 4.0 x 8mm NC. Intracoronary nitroglycerin was given. Given her hypertension, she also received isosorbide mononitrate 60 mg oral. Coronary wires were retrieved into the left main coronary artery and final angiography demonstrated good results for both the LAD and left circumflex. 5F Pigtail catheter crossed aortic valve to obtain LVEDP, LV angiogram deferred. Pre-procedure - DIANA 3 flow Post-procedure - DIANA 3 flow No angiographic complications identified. Hemostasis was achieved by application of TR band. Assessment: Successful PCI to the mid LAD with 3.5 x 30mm [place] SOWMYA; post dilated with 4.0 x 15mm NC and 4.0 x 8mm NC with good angiographic results. Successful PTCA of the ostial diagonal branch. Successful PCI to the left circumflex with overlapping 3.5 x 38mm and 3.5 x 18mm [place] SOWMYA with good angiographic results. Post Operative Condition: Stable No significant blood loss Disposition: ICU Plan: Aspirin 80 mg p.o. daily indefinitely. Ticagrelor 90 mg p.o. b.i.d. for minimum of 1 year if not more given total length of stents. Continue aggressive medical therapy and risk factor modification. Transthoracic echocardiogram. Jovi Kay Interventional Cardiology
[2025-03-07 13:19] LABS: Hemoglobin A1C 8.3 % (<5.7)
[2025-03-07] MEDS: MORPHINE SULFATE (*CRX) 2 MG/ML INJ IV PUSH ×7 (13:23→20:02)
[2025-03-07] MEDS: SODIUM CHLORIDE 0.9% IV 1,000 ML 125 ML IV CONT (13:27)
--- NOTE | 2025-03-07 14:18 | ADMGEN ---
This patient, Jill Villa, was admitted to Intensive Care Unit-2. Patient/family oriented to hospital policies and general routines including ID bracelet, bed and alarms, visiting hours, pain management, procedures, bathroom and other care routines, personal items, smoking policy, room service/diet, and visiting hours. Information on how to activate the Rapid Response Team has been discussed. Patient/Family are encouraged to report perceived risks to care and to ask questions if they do not understand what they are told or what they should do. Patient is resting in bed with family at bedside. Voiced complaints of pain and PRN medication given per order. Voiced no other complaints or concerns at this time. Admission assessment completed and documented. TR Band in-place and assessed Personal items and call light in reach. Bed alarm on. Will continue to monitor. Anthony De Jesus RN
[2025-03-07 14:21] LABS: Add Urine Microscopic? YES; Appearance Urine Cloudy (Clear); Glucose Urine UA 2+ mg/dL (Negative); Leukocyte Esterase Ur 2+ LEU/UL (Negative); Nitrate Urine Negative (Negative); Non Pathogenic Casts 0-2; Specific Grav Ur 1.045 (1.001-1.035)
[2025-03-07 16:54] LABS: MRSA (PCR) NOT DETECTED (NOT DETECTE)
--- NOTE | 2025-03-07 17:23 | ECG_ITS ---
Test Date: 2025-03-07 17:35:23 Measurements Intervals [place] Rate: 82 P: 58 [place]: 178 QRS: -1 QRSD: 93 T: 77 QT: 400 QTc: 468 Interpretive Statements SINUS RHYTHM ANTERIOR MYOCARDIAL INFARCTION [40+ ms Q WAVE AND/OR ST/T ABNORMALITY IN V3/V4], PROBABLY RECENT INFERIOR MYOCARDIAL INFARCTION [40+ ms Q WAVE AND/OR ST/T ABNORMALITY IN II/aVF], OF INDETERMINATE AGE ACUTE VA Compared to ECG 03/07/2025 10:32:14 No significant changes Electronically Signed On 03-08-2025 14:17:33 CDT by Jovi Kay M.D.
--- NOTE | 2025-03-07 17:28 | PC.NURSE ---
Patient complains of Chest pain 10/10 Morphine 2mg given per order X5. Dr. Kay called and informed of patient's complaints and no new order given. Repeat EGK obtained and placed in chart for Dr. Kay's review. Patient continues to rest in bed with family at bedside. Anthony De Jesus RN.
[2025-03-07] MEDS: ONDANSETRON INJ 4 MG/2 ML VIAL IV PUSH ×2 (18:24→22:28)
[2025-03-07 18:53] LABS: CRP 1.2 mg/dL (<1.0)
[2025-03-07 19:11] LABS: Troponin I 3.660 ng/mL (0.000-0.034)
[2025-03-07] MEDS: TICAGRELOR 90 MG TABLET PO (20:02)
[2025-03-07] MEDS: ATORVASTATIN 40 MG TABLET 80 MG PO (20:02)
[2025-03-07] MEDS: IBUPROFEN 400 MG TABLET 800 MG PO (21:37)
[2025-03-07] MEDS: COLCHICINE 0.6 MG TABLET PO (21:37)
[2025-03-08] VITALS (17 sets, daily range): BP systolic 87–141; BP diastolic 50–78; PULSE 71–94; RESP 15–20; TEMP 36.6–37.2; O2SAT 94–99; BMI 30.1
--- NOTE | 2025-03-08 | ECHO_ITS ---
Patient Info Name: Jill Villa Age: 44 years : 1980 Gender: Female Ht: 75 in Wt: 220 lbs BSA: 2.31 m2 HR: 79 bpm BP: 123 / 68 mmHg Technical Quality: Fair Exam Date: 03/08/2025 9:04 AM Patient Status: I Admit Date: 03/07/2025 Exam Type: CA echo dop color flow w con Complete two-dimensional, color flow and Doppler transthoracic echocardiogram is performed with contrast to opacify the left ventricle and to improve the deliniation of the left ventricle endocardial borders. Staff Referring Physician: John Salcedo MD Composing Room Supervisor: Adolfo De Jesus III Attending Provider: Angel Bloom Contrast/Agitated Saline Contrast/Ag. Saline: Definity Amount: 2.00 ml Administered By: Adolfo De Jesus III Existing IV Access: Yes IV Access Condition: patent with no signs of infiltration Summary 1. There is normal biventricular size and systolic function. 2. There are no significant valvular abnormalities. 3. There is a small size pericardial effusion. Left Ventricle The left ventricle is normal in size and systolic function. The left ventricular ejection fraction is visually estimated to be 65-70%. Right Ventricle The right ventricle is normal in size and systolic function. Left Atria The left atrium is normal size. Right Atria The right atrium is normal size. Atrial Septum The atrial septum is visually intact. Aortic Valve The aortic valve is not well visualized. There is no aortic stenosis or regurgitation. Pulmonic Valve The pulmonic valve is not well visualized. There is no pulmonic valve regurgitation. Mitral Valve The mitral valve is normal. There is no mitral regurgitation. Tricuspid Valve The tricuspid valve is grossly normal. There is no tricuspid regurgitation. Pericardium/Pleural There is a small size pericardial effusion. Inferior Vena Cava Normal inferior vena cava with >50% collapse upon inspiration consistent with normal right atrial pressure, 3 mmHg. Aorta The aortic root at the level of the sinus of Valsalva measures 2.6 cm in diameter. Left Ventricular Outflow Tract Name Value Normal LVOT 2D LVOT Diameter 2.3 cm LVOT Doppler LVOT Peak Velocity 110 cm/s LVOT Peak Gradient 5 mmHg LVOT Mean Gradient 3 mmHg LVOT VTI 21 cm LVOT VTI/AV VTI Ratio 0.8 LVOT Stroke Volume 86 ml LVOT CO 19.7 l/min LVOT CI 8.5 l/min/m2 Pulmonic Valve Name Value Normal PV Doppler PV Peak Velocity 123 cm/s PV Peak Gradient 6 mmHg PV Mean Gradient 3 mmHg Mitral Valve Name Value Normal MV Doppler MV Peak Gradient 5 mmHg MV Mean Gradient 2 mmHg MV Area (Cont Eq VTI) 3.2 cm2 MV Diastolic Function MV E Peak Velocity 109 cm/s MV A Peak Velocity 102 cm/s MV E/A 1.1 MV Decel Time (PW) 216 ms MV Annular TDI MV E/e' (Septal) 12.2 MV E/e' (Lateral) 12.2 MV E/e' (Average) 12.2 Tricuspid Valve Name Value Normal TV Regurgitation Doppler TR Peak Velocity 123 cm/s TR Peak Gradient 6 mmHg Estimated PAP/RSVP RA Pressure 3 mmHg <=5 PA Systolic Pressure 9 mmHg <36 RV Systolic Pressure 9 mmHg <36 TV Annular TDI TV Lateral Cristin s' Velocity 19.0 cm/s >=9.5 Aortic Valve Name Value Normal AV Doppler AV Peak Velocity 127 cm/s AV Peak Gradient 6 mmHg AV Mean Gradient 4 mmHg AV VTI 25 cm AV Area (Cont Eq VTI) 3.4 cm2 >=3.0 AV Area (Cont Eq Rylan) 3.5 cm2 AV DI (Rylan) 0.87 AV Regurgitation 2D LVOT Area 4.1 cm2 Ventricles Name Value Normal LV Dimensions 2D/MM LVOT Diameter 2.3 cm Atria Name Value Normal LA Dimensions LA Volume (4C A-L) 42 ml LA Volume (BP A-L) 47 ml RA Dimensions RA Systolic Major Emmet Length (4C) 5.5 cm 2.2-2.8 RA Area (4C) 18.4 cm2 <=18.0 Report Signatures
[2025-03-08 01:10] LABS: Troponin I 6.070 ng/mL (0.000-0.034)
[2025-03-08 05:21] LABS: Hematocrit 36.9 % (37.0-47.0); Hemoglobin 11.3 g/dL (12.0-15.0); Immature Granulocyte Percent A 0.9 % (0-0.5); Lymphocytes Absolute Auto 1.82 K/mm3 (0.9-3.2); Mean Corpuscular HGB Conc 30.6 g/dl (32-36); Mean Corpuscular Hemoglobin 29.6 pg (26-34); Mean Corpuscular Volume 96.6 fl (80-100); Nucleated Red Blood Cells Absolute Auto 0.000 K/mm3 (0.0-0.012); Nucleated Red Blood Cells Perc 0.0 % (0.0-0.2); Platelet Count Result 191 k/mm3 (150-375); Red Blood Count 3.82 M/mm3 (4.2-5.4); White Blood Count 10.2 K/mm3 (4.5-10.0)
[2025-03-08] MEDS: IBUPROFEN 400 MG TABLET 800 MG PO ×3 (05:24→22:41)
[2025-03-08 05:42] LABS: Alanine Aminotransferase 13 U/L (6-35); Albumin Level 3.6 g/dL (3.5-5.1); Alkaline Phosphatase 91 U/L (38-126); Anion Gap 8 mmol/L (4-12); Aspartate Amino Transferase 40 U/L (14-36); Bilirubin,Total 0.7 mg/dL (0.2-1.3); Blood Urea Nitrogen 14 mg/dL (7-17); Calcium 8.7 mg/dL (8.4-10.2); Carbon Dioxide 21 mmol/L (22-30); Chloride 106 mmol/L (98-107); Estimated CRCL calculation 140 ml/min; Estimated Glomerular Filt Rate > 60; Glucose 158 mg/dL (65-110); Magnesium 1.8 mg/dL (1.6-2.3); Potassium 4.2 mmol/L (3.4-5.0); Sodium 135 mmol/L (137-145); Total Protein 6.5 g/dL (6.3-8.2)
[2025-03-08 05:50] LABS: Troponin I 6.680 ng/mL (0.000-0.034)
--- NOTE | 2025-03-08 08:17 | P.PNINT_ITS ---
Progress Note: A&P Assessment and Plan (1) ST elevation (STEMI) myocardial infarction: Qualifiers: Involved coronary artery: unspecified coronary artery Qualified Code(s): I21.3 - ST elevation (STEMI) myocardial infarction of unspecified site Code(s): I21.3 - ST elevation (STEMI) myocardial infarction of unspecified site Status: Inactive Assessment and Plan: STEMI status post PCI and stent placement as above Continue telemetry monitoring Check echocardiogram which is pending Dual antiplatelet therapy, statin, beta-ed, losartan, Imdur (2) Hyperlipidemia: Code(s): E78.5 - Hyperlipidemia, unspecified Status: Acute Assessment and Plan: Continue Lipitor (3) Diabetes mellitus: Code(s): E11.9 - Type 2 diabetes mellitus without complications Status: Acute Assessment and Plan: Sliding scale insulin Continue glipizide HbA1c 8.3 Consult personal development educator and dietitian Discussed with patient regarding discuss sitting with her primary care physician regarding adjustment of diabetic medication. Also recommended the patient monitor her blood sugars at home which she has not done in a year. (4) Paraplegia: Code(s): G82.20 - Paraplegia, unspecified Status: Chronic Assessment and Plan: Chronic paraplegia Patient self catheterizes at home. Marcos placed (5) Hypertension: Code(s): I10 - Essential (primary) hypertension Status: Acute Assessment and Plan: Blood pressure is elevated you partly can be secondary to pain. Patient has been started on Coreg, losartan and Imdur Monitor (6) UTI (urinary tract infection): Code(s): N39.0 - Urinary tract infection, site not specified Status: Acute Assessment and Plan: UA suggestive UTI. Patient presented with slightly elevated WBC count which again can be secondary to UT She is afebrile and denies any specific symptoms. Culture has been sent Add nitrofurantoin p.o. Plan DVT prophylaxis -Lovenox Nutrition -diet ordered Code Status - Full Code Incentive spirometry Transfer out of ICU today Subjective Date/time seen: 03/08/25 She feels better this morning. She states she has no pain this morning. Her pain is completely resolved after she received Motrin. She did had 1 episode of nausea after she received morphine. She denies any other complaints. Patient denies fever, chest pain, shortness of breath, cough, nausea vomiting, abdominal pain,, diarrhea, headache or constipation. All other systems were reviewed and were negative. Patient is on room air. Sinus rhythm on the monitor. Blood pressure stable. She is tolerating p.o. diet. Afebrile. Review of Systems Review of Systems: All systems reviewed & are unremarkable except as noted in HPI and below (HPI) Exam Narrative: General: Pt is alert awake and in NAD Lungs/Chest: Trachea central Clear BS B/L, No crackles or wheezing. Cardiac: RRR. Normal S1 S2. No murmurs Circulation: Pedal pulses are intact and symmetrical. Abdomen: Normal bowel sounds.. Soft. NT. ND. Extremities: No edema. right radial pulse is palpable the right hand is warm with good cap refill. : Marcos in place with clear urine output Neurologic: Follows commands. AO x3 PERRL, she is able to move both her hands but not the legs. She does have a sensation to touch intact in both feet Skin: No Rash, several tattoos Objective Data Vital Signs Vital Signs: Vital Signs - 24 hr 03/07/25 10:20 03/07/25 10:33 03/07/25 13:00 Temperature 36.7 C 36.4 C L Pulse Rate 109 H 82 Pulse Rate [Right Radial Palpation] Respiratory Rate 12 13 Blood Pressure 158/87 H 171/95 H Pulse Oximetry 100 99 100 Oxygen Delivery Room Air Room Air 03/07/25 13:15 03/07/25 13:30 03/07/25 13:30 Temperature 36.4 C L 36.4 C L Pulse Rate 85 82 Pulse Rate [Right Radial Palpation] Respiratory Rate 14 13 Blood Pressure 181/100 H 160/84 H Pulse Oximetry 100 100 100 Oxygen Delivery Room Air 03/07/25 13:45 03/07/25 14:00 03/07/25 14:00 Temperature 36.5 C 36.6 C Pulse Rate 74 77 77 Pulse Rate [Right Radial Palpation] Respiratory Rate 17 14 Blood Pressure 146/87 H 146/77 H Pulse Oximetry 100 100 Oxygen Delivery 03/07/25 14:15 03/07/25 14:35 03/07/25 14:55 Temperature 36.6 C 36.7 C 36.7 C Pulse Rate 79 83 84 Pulse Rate [Right Radial Palpation] Respiratory Rate 13 20 11 L Blood Pressure 145/88 H 159/92 H 160/94 H Pulse Oximetry 100 100 100 Oxygen Delivery 03/07/25 15:20 03/07/25 15:40 03/07/25 16:00 Temperature 36.7 C 36.8 C 36.8 C Pulse Rate 89 82 88 Pulse Rate [Right Radial Palpation] Respiratory Rate 15 21 H 15 Blood Pressure 163/91 H 166/97 H 145/89 H Pulse Oximetry 100 98 98 Oxygen Delivery 03/07/25 16:00 03/07/25 16:00 03/07/25 16:00 Temperature 36.8 C Pulse Rate 88 82 Pulse Rate [Right Radial Palpation] Respiratory Rate 15 Blood Pressure 145/89 H Pulse Oximetry 98 98 Oxygen Delivery Room Air 03/07/25 16:20 03/07/25 16:40 03/07/25 17:00 Temperature 36.8 C 36.8 C 36.8 C Pulse Rate 87 85 92 Pulse Rate [Right Radial Palpation] Respiratory Rate 15 13 14 Blood Pressure 165/86 H 164/91 H 158/138 H Pulse Oximetry 100 98 100 Oxygen Delivery 03/07/25 17:20 03/07/25 18:00 03/07/25 18:00 Temperature 36.8 C 36.9 C Pulse Rate 93 84 84 Pulse Rate [Right Radial Palpation] Respiratory Rate 10 L 17 Blood Pressure 166/83 H 150/82 H Pulse Oximetry 99 99 Oxygen Delivery 03/07/25 18:20 03/07/25 20:00 03/07/25 20:00 Temperature 36.8 C 36.9 C Pulse Rate 91 87 Pulse Rate [Right Radial Palpation] Respiratory Rate 18 19 Blood Pressure 164/89 H 151/73 H Pulse Oximetry 100 96 97 Oxygen Delivery Room Air 03/07/25 20:00 03/07/25 20:02 03/07/25 20:41 Temperature Pulse Rate 87 89 Pulse Rate [Right Radial Palpation] 87 Respiratory Rate Blood Pressure Pulse Oximetry Oxygen Delivery 03/07/25 22:00 03/07/25 23:42 03/07/25 23:48 Temperature 36.9 C Pulse Rate 87 85 Pulse Rate [Right Radial Palpation] Respiratory Rate 20 14 Blood Pressure 142/75 H 126/66 Pulse Oximetry 96 97 95 Oxygen Delivery Room Air 03/08/25 00:00 03/08/25 02:00 03/08/25 03:35 Temperature Pulse Rate 80 71 Pulse Rate [Right Radial Palpation] Respiratory Rate 20 Blood Pressure 87/50 L Pulse Oximetry 96 97 Oxygen Delivery Room Air 03/08/25 04:00 03/08/25 04:00 03/08/25 05:47 Temperature 36.6 C Pulse Rate 80 80 79 Pulse Rate [Right Radial Palpation] Respiratory Rate 20 Blood Pressure 116/54 L Pulse Oximetry 99 Oxygen Delivery 03/08/25 05:47 Temperature Pulse Rate 79 Pulse Rate [Right Radial Palpation] Respiratory Rate 16 Blood Pressure 123/68 Pulse Oximetry 97 Oxygen Delivery Intake/Output Intake/Output: Intake & Output 03/05/25 03/06/25 03/07/25 03/08/25 23:59 23:59 23:59 23:59 Intake Total 1545 240 Output Total 1825 500 Balance -280 -260 Meds/Results Medications: Active Medications Generic Name Dose Route Start Last Admin Trade Name Freq PRN Reason Stop Dose Admin Aspirin 81 mg 03/08/25 09:00 Aspirin 81 Mg Enteric Tablet PO QAM SUSANNE Atorvastatin Calcium 80 mg 03/07/25 21:00 03/07/25 20:02 Atorvastatin 40 Mg Tablet PO 80 mg QHS SUSANNE Administration Bisacodyl 10 mg 03/07/25 13:12 Bisacodyl 10 Mg Suppository RECTAL QAM PRN Constipation Carvedilol 12.5 mg 03/08/25 09:00 Carvedilol 12.5 Mg Tablet PO Q12HR SUSANNE Colchicine 0.6 mg 03/07/25 21:00 03/07/25 21:37 Colchicine 0.6 Mg Tablet PO 0.6 mg Q12HR SUSANNE Administration Dextrose 12.5 gm 03/07/25 13:01 Dextrose 50% 25 Gm/50 Ml Syringe IV PUSH PRN PRN Hypoglycemia Protocol Enoxaparin Sodium 40 mg 03/08/25 09:00 Enoxaparin 40 Mg/0.4 Ml Syringe SUB-Q DAILY SUSANNE Glipizide 5 mg 03/08/25 06:30 Glipizide 5 Mg Tablet PO DAILY@0630 SUSANNE Glucagon 1 mg 03/07/25 13:01 Glucagon For Inj 1 Mg Vial IM PRN PRN Hypoglycemia Protocol Glucose 15 gm 03/07/25 13:01 Glucose Oral Gel 15 Gm Of Glucse In 37.5 Gm Tube PO PRN PRN Hypoglycemia Protocol Dextrose 1,000 mls @ 100 mls/hr 03/07/25 13:01 Dextrose 5% 1,000 Ml IVPB PRN PRN Hypoglycemia Protocol Ibuprofen 800 mg 03/07/25 20:56 03/08/25 05:24 Ibuprofen 400 Mg Tablet PO 800 mg Q8H PRN Administration pain first line 1-3 Insulin Aspart 3 - 6 units 03/07/25 17:00 03/07/25 16:37 Insulin Aspart (*Bkc) 100 Units/Ml SUB-Q Not Given TIDWM [facility] Protocol Insulin Aspart 1 - 3 units 03/07/25 21:00 03/07/25 19:53 Insulin Aspart (*Bkc) 100 Units/Ml SUB-Q Not Given HS [facility] Protocol Isosorbide Mononitrate 60 mg 03/08/25 09:00 Isosorbide Mononitrate 60 Mg Tab.Er.24h PO QAM [facility] Labetalol HCl 20 mg 03/07/25 13:17 Labetalol Hcl Inj 100 Mg/20 Ml Vial IV PUSH Q4H PRN SBP > 160 and HR> 60 -1st choice Losartan Potassium 25 mg 03/08/25 09:00 Losartan Potassium 25 Mg Tablet PO DAILY [facility] Morphine Sulfate 2 mg 03/07/25 14:00 03/07/25 20:02 Morphine Sulfate (*Crx) 2 Mg/Ml Inj IV PUSH 2 mg Q1H PRN Administration Pain Rated 7-10 Nitrofurantoin Macrocrystals 100 mg 03/08/25 09:00 Nitrofurantoin Monohyd Macrocr 100 Mg Cap PO Q12HR [facility] Nitroglycerin 0.4 mg 03/07/25 19:21 Nitroglycerin Sl 0.4 Mg Tablet SUBLINGUAL Q5MIN PRN Chest Pain Ondansetron HCl 4 mg 03/07/25 18:18 03/07/25 22:28 Ondansetron Inj 4 Mg/2 Ml Vial IV PUSH 4 mg Q4H PRN Administration Nausea And Vomiting Perflutren Lipid Microsphere 0 ml 03/07/25 12:34 Perflutren Lipid Microspheres 1.5 Ml Vial Diluted To 10 Ml Total Volume IV PUSH 03/10/25 12:35 ONCE PRN adequate visualization Protocol Polyethylene Glycol 17 gm 03/08/25 09:00 Polyethylene Glycol 3350 17 Gm Powd.Pack PO QAM [facility] Ticagrelor 90 mg 03/07/25 21:00 03/07/25 20:02 Ticagrelor 90 Mg Tablet PO 90 mg Q12HR SUSANNE Administration Labs Labs: Laboratory Results - last 24 hr 03/07/25 03/07/25 03/07/25 10:34 12:10 14:07 WBC 13.0 H RBC 4.65 Hgb 13.6 D Hct 41.5 MCV 89.2 MCH 29.2 MCHC 32.8 RDW 13.4 Plt Count 233 MPV 10.6 H Immature Gran % (Auto) 0.9 H Neut % (Auto) 75.9 H Lymph % (Auto) 14.9 L [place] % (Auto) 4.3 Eos % (Auto) 3.2 Baso % (Auto) 0.8 Lymph # (Auto) 1.94 [place] # (Auto) 0.6 Eos # (Auto) 0.4 H Baso # (Auto) 0.1 Abs Immat Gran (auto) 0.12 H Absolute Neuts (auto) 9.9 H Absolute Nucleated RBC 0.000 Nucleated RBC % 0.0 ESR PT 12.7 INR 1.0 APTT 63.2 H Activ Coag Time Kaolin 245 H Sodium 137 Potassium 4.1 Chloride 107 Carbon Dioxide 16 L Anion Gap 14 H BUN 16 Creatinine 0.67 L Estim Creat Clear Calc 119 Estimated GFR > 60 Glucose 266 H POC Capillary Glucose Hemoglobin A1c 8.3 H Calcium 9.5 Phosphorus Magnesium Total Bilirubin 0.4 AST 21 ALT 15 Alkaline Phosphatase 137 H Troponin I 0.304 H* D C-Reactive Protein Total Protein 7.9 Albumin 4.4 Triglycerides 214 H Cholesterol 221 H LDL Cholesterol Direct 131 HDL Direct 42 Urine Color Yellow Urine Appearance Cloudy H Urine pH 5.5 Ur Specific [place] 1.045 H Urine Protein Negative Urine Glucose (UA) 2+ H Urine Ketones Negative Ur Blood (Man) Trace Urine Nitrate Negative Urine Bilirubin Negative Urine Urobilinogen 0.2 Leukocyte Esterase Rfl 2+ H Urine RBC 0-2 Urine WBC 21-50 H Ur Squamous Epith Cells None seen Urine Bacteria 4+ H Urine Casts 0-2 Nasal MRSA (PCR) Blood Type A Positive Antibody Screen Negative 03/07/25 03/07/25 03/07/25 15:29 16:17 18:29 WBC RBC Hgb Hct MCV MCH MCHC RDW Plt Count MPV Immature Gran % (Auto) Neut % (Auto) Lymph % (Auto) [place] % (Auto) Eos % (Auto) Baso % (Auto) Lymph # (Auto) [place] # (Auto) Eos # (Auto) Baso # (Auto) Abs Immat Gran (auto) Absolute Neuts (auto) Absolute Nucleated RBC Nucleated RBC % ESR 55 H PT INR APTT Activ Coag Time Kaolin Sodium Potassium Chloride Carbon Dioxide Anion Gap BUN Creatinine Estim Creat Clear Calc Estimated GFR Glucose POC Capillary Glucose 175 H Hemoglobin A1c Calcium Phosphorus Magnesium Total Bilirubin AST ALT Alkaline Phosphatase Troponin I 3.660 H* D C-Reactive Protein 1.2 H Total Protein Albumin Triglycerides Cholesterol LDL Cholesterol Direct HDL Direct Urine Color Urine Appearance Urine pH Ur Specific [place] Urine Protein Urine Glucose (UA) Urine Ketones Ur Blood (Man) Urine Nitrate Urine Bilirubin Urine Urobilinogen Leukocyte Esterase Rfl Urine RBC Urine WBC Ur Squamous Epith Cells Urine Bacteria Urine Casts Nasal MRSA (PCR) Not detected Blood Type Antibody Screen 03/07/25 03/08/25 03/08/25 19:47 00:24 05:04 WBC 10.2 H RBC 3.82 L Hgb 11.3 L Hct 36.9 L MCV 96.6 D MCH 29.6 MCHC 30.6 L RDW 13.7 Plt Count 191 MPV 10.7 H Immature Gran % (Auto) 0.9 H Neut % (Auto) 71.8 Lymph % (Auto) 17.9 L [place] % (Auto) 5.6 Eos % (Auto) 2.9 Baso % (Auto) 0.9 Lymph # (Auto) 1.82 [place] # (Auto) 0.6 Eos # (Auto) 0.3 Baso # (Auto) 0.1 Abs Immat Gran (auto) 0.09 H Absolute Neuts (auto) 7.3 H Absolute Nucleated RBC 0.000 Nucleated RBC % 0.0 ESR PT INR APTT Activ Coag Time Kaolin Sodium 135 L Potassium 4.2 Chloride 106 Carbon Dioxide 21 L Anion Gap 8 BUN 14 Creatinine 0.65 L Estim Creat Clear Calc 140 Estimated GFR > 60 Glucose 158 H POC Capillary Glucose 176 H Hemoglobin A1c Calcium 8.7 Phosphorus 3.2 Magnesium 1.8 Total Bilirubin 0.7 AST 40 H ALT 13 Alkaline Phosphatase 91 Troponin I 6.070 H* D 6.680 H* C-Reactive Protein Total Protein 6.5 Albumin 3.6 Triglycerides Cholesterol LDL Cholesterol Direct HDL Direct Urine Color Urine Appearance Urine pH Ur Specific [place] Urine Protein Urine Glucose (UA) Urine Ketones Ur Blood (Man) Urine Nitrate Urine Bilirubin Urine Urobilinogen Leukocyte Esterase Rfl Urine RBC Urine WBC Ur Squamous Epith Cells Urine Bacteria Urine Casts Nasal MRSA (PCR) Blood Type Antibody Screen Quality VTE Prophylaxis VTE prophylaxis: pharmacologic ordered
--- NOTE | 2025-03-08 08:39 | ECG_ITS ---
Test Date: 2025-03-08 09:52:49 Measurements Intervals [place] Rate: 79 P: 54 PA: 183 QRS: 1 QRSD: 90 T: 105 QT: 400 QTc: 460 Interpretive Statements SINUS RHYTHM ANTERIOR MYOCARDIAL INFARCTION , PROBABLY RECENT [40+ ms Q WAVE AND/OR ST/T ABNORMALITY IN V3/V4] Compared to ECG 03/07/2025 17:35:23 No significant changes Electronically Signed On 03-08-2025 14:35:43 CDT by Jovi Kay M.D.
[2025-03-08] MEDS: ASPIRIN 81 MG ENTERIC TABLET PO (09:04)
[2025-03-08] MEDS: ISOSORBIDE MONONITRATE 60 MG TAB.ER.24H PO (09:04)
[2025-03-08] MEDS: LOSARTAN POTASSIUM 25 MG TABLET PO (09:04)
[2025-03-08] MEDS: NITROFURANTOIN MONOHYD MACROCR 100 MG CAP PO ×2 (09:05→20:41)
[2025-03-08] MEDS: COLCHICINE 0.6 MG TABLET PO ×2 (09:05→20:41)
[2025-03-08] MEDS: TICAGRELOR 90 MG TABLET PO ×2 (09:06→20:41)
[2025-03-08] MEDS: ENOXAPARIN 40 MG/0.4 ML SYRINGE SUB-Q (09:07)
[2025-03-08] MEDS: HYDROcodone/acetaminophen (*CRX) 5-325 MG TABLET 1 TAB PO ×3 (10:21→20:40)
[2025-03-08] MEDS: PERFLUTREN LIPID MICROSPHERES 1.5 ML VIAL DILUTED TO 10 ML TOTAL VOLUME IV PUSH (10:26)
--- NOTE | 2025-03-08 10:27 | IVDEFINITY ---
Prior to administration of IV Definity the patient was educated on the risks and benefits of the imaging enhancing agent including potential adverse side effects. The patient verbalized understanding. Allergies were verified. No exclusion criteria were identified and at least one of the following inclusion criteria were met: 1) physician request, 2) patient technically difficult to image (per the [place] [employer] guidelines of two or more segments not discernable within the apical view), or 3) questionable left ventricular function. ?
--- NOTE | 2025-03-08 11:21 | PM.PNCARD ---
Progress Note: A&P Assessment and Plan (1) NSTEMI (non-ST elevated myocardial infarction): Code(s): I21.4 - Non-ST elevation (NSTEMI) myocardial infarction Status: Acute (2) Pericarditis: Code(s): I31.9 - Disease of pericardium, unspecified Status: Acute (3) Hyperlipidemia: Code(s): E78.5 - Hyperlipidemia, unspecified Status: Acute Plan 44-year-old woman with aortic pathology status post aorto bi-iliac bypass surgery complicated by T10 nerve ischemia who has recently started working physical therapy to regain function of her legs, history of stroke, strong family history of cardiac conditions, and diabetes presents with chest pain whose clinical presentation was concerning for high risk NSTEMI NSTEMI -status post PCI -continue aspirin 81 mg p.o. daily indefinitely -continue Brilinta 90 mg p.o. b.i.d. for minimum of 1 year if not more given length of stents -continue carvedilol 12.5 mg p.o. b.i.d. and isosorbide mononitrate 60 mg p.o. daily -trend troponin to peak Pericarditis -start colchicine 0.6 mg p.o. b.i.d. for 2 months -ibuprofen 100 mg p.o. t.i.d. for 2 days -echocardiogram and check ROSI Hyperlipidemia -atorvastatin 80 mg every evening Likely discharge tomorrow. Okay to transfer to IMU Subjective Date/time seen: 03/08/25 11:21 Interval history: Chest pain is improving. No shortness of breath. Review of Systems Cardiovascular: Cardiovascular: Reports as per HPI Respiratory: Respiratory: Reports as per HPI Exam Const: General: comfortable HENMT: Mouth: Yes moist mucous membranes Eyes: EOM: EOMs intact bilaterally Neck: Neck: no JVD Resp: Effort & Inspection: normal respiratory effort Auscultation: clear to auscultation bilaterally Cardio: Rate: regular rate Rhythm: regular rhythm Extrem: General: no pedal edema Objective Data Vital Signs Vital Signs: Vital Signs - 24 hr 03/07/25 13:00 03/07/25 13:15 03/07/25 13:30 Temperature 36.4 C L 36.4 C L 36.4 C L Pulse Rate 82 85 82 Pulse Rate [Right Radial Palpation] Respiratory Rate 13 14 13 Blood Pressure 171/95 H 181/100 H 160/84 H Pulse Oximetry 100 100 100 Oxygen Delivery 03/07/25 13:30 03/07/25 13:45 03/07/25 14:00 Temperature 36.5 C Pulse Rate 74 77 Pulse Rate [Right Radial Palpation] Respiratory Rate 17 Blood Pressure 146/87 H Pulse Oximetry 100 100 Oxygen Delivery Room Air 03/07/25 14:00 03/07/25 14:15 03/07/25 14:35 Temperature 36.6 C 36.6 C 36.7 C Pulse Rate 77 79 83 Pulse Rate [Right Radial Palpation] Respiratory Rate 14 13 20 Blood Pressure 146/77 H 145/88 H 159/92 H Pulse Oximetry 100 100 100 Oxygen Delivery 03/07/25 14:55 03/07/25 15:20 03/07/25 15:40 Temperature 36.7 C 36.7 C 36.8 C Pulse Rate 84 89 82 Pulse Rate [Right Radial Palpation] Respiratory Rate 11 L 15 21 H Blood Pressure 160/94 H 163/91 H 166/97 H Pulse Oximetry 100 100 98 Oxygen Delivery 03/07/25 16:00 03/07/25 16:00 03/07/25 16:00 Temperature 36.8 C 36.8 C Pulse Rate 88 88 Pulse Rate [Right Radial Palpation] Respiratory Rate 15 15 Blood Pressure 145/89 H 145/89 H Pulse Oximetry 98 98 98 Oxygen Delivery Room Air 03/07/25 16:00 03/07/25 16:20 03/07/25 16:40 Temperature 36.8 C 36.8 C Pulse Rate 82 87 85 Pulse Rate [Right Radial Palpation] Respiratory Rate 15 13 Blood Pressure 165/86 H 164/91 H Pulse Oximetry 100 98 Oxygen Delivery 03/07/25 17:00 03/07/25 17:20 03/07/25 18:00 Temperature 36.8 C 36.8 C Pulse Rate 92 93 84 Pulse Rate [Right Radial Palpation] Respiratory Rate 14 10 L Blood Pressure 158/138 H 166/83 H Pulse Oximetry 100 99 Oxygen Delivery 03/07/25 18:00 03/07/25 18:20 03/07/25 20:00 Temperature 36.9 C 36.8 C Pulse Rate 84 91 Pulse Rate [Right Radial Palpation] Respiratory Rate 17 18 Blood Pressure 150/82 H 164/89 H Pulse Oximetry 99 100 96 Oxygen Delivery Room Air 03/07/25 20:00 03/07/25 20:00 03/07/25 20:02 Temperature 36.9 C Pulse Rate 87 87 89 Pulse Rate [Right Radial Palpation] Respiratory Rate 19 Blood Pressure 151/73 H Pulse Oximetry 97 Oxygen Delivery 03/07/25 20:41 03/07/25 22:00 03/07/25 23:42 Temperature Pulse Rate 87 Pulse Rate [Right Radial Palpation] 87 Respiratory Rate 20 Blood Pressure 142/75 H Pulse Oximetry 96 97 Oxygen Delivery Room Air 03/07/25 23:48 03/08/25 00:00 03/08/25 02:00 Temperature 36.9 C Pulse Rate 85 80 71 Pulse Rate [Right Radial Palpation] Respiratory Rate 14 20 Blood Pressure 126/66 87/50 L Pulse Oximetry 95 96 Oxygen Delivery 03/08/25 03:35 03/08/25 04:00 03/08/25 04:00 Temperature 36.6 C Pulse Rate 80 80 Pulse Rate [Right Radial Palpation] Respiratory Rate 20 Blood Pressure 116/54 L Pulse Oximetry 97 99 Oxygen Delivery Room Air 03/08/25 05:47 03/08/25 05:47 03/08/25 08:00 Temperature Pulse Rate 79 79 Pulse Rate [Right Radial Palpation] Respiratory Rate 16 Blood Pressure 123/68 Pulse Oximetry 97 98 Oxygen Delivery Room Air 03/08/25 08:00 03/08/25 08:00 03/08/25 09:04 Temperature 36.8 C Pulse Rate 94 84 87 Pulse Rate [Right Radial Palpation] Respiratory Rate 16 Blood Pressure 128/73 Pulse Oximetry 98 Oxygen Delivery 03/08/25 10:00 03/08/25 10:00 Temperature 36.8 C Pulse Rate 87 80 Pulse Rate [Right Radial Palpation] Respiratory Rate 16 Blood Pressure 141/69 H Pulse Oximetry 99 Oxygen Delivery Intake/Output Intake/Output: Intake & Output 03/05/25 03/06/25 03/07/25 03/08/25 23:59 23:59 23:59 23:59 Intake Total 1545 480 Output Total 1825 500 Balance -280 -20 Meds/Results Medications: Active Medications Generic Name Dose Route Start Last Admin Trade Name Freq PRN Reason Stop Dose Admin Hydrocodone Bitart/Acetaminophen 1 tab 03/08/25 09:56 03/08/25 10:21 Hydrocodone/Acetaminophen (*Crx) 5-325 Mg Tablet PO 1 tab Q4H PRN Administration Pain Rated 4-6 Aspirin 81 mg 03/08/25 09:00 03/08/25 09:04 Aspirin 81 Mg Enteric Tablet PO 81 mg QAM SUSANNE Administration Atorvastatin Calcium 80 mg 03/07/25 21:00 03/07/25 20:02 Atorvastatin 40 Mg Tablet PO 80 mg QHS SUSANNE Administration Bisacodyl 10 mg 03/07/25 13:12 Bisacodyl 10 Mg Suppository RECTAL QAM PRN Constipation Carvedilol 12.5 mg 03/08/25 09:00 03/08/25 09:04 Carvedilol 12.5 Mg Tablet PO 12.5 mg Q12HR SUSANNE Administration Colchicine 0.6 mg 03/07/25 21:00 03/08/25 09:05 Colchicine 0.6 Mg Tablet PO 0.6 mg Q12HR SUSANNE Administration Dextrose 12.5 gm 03/07/25 13:01 Dextrose 50% 25 Gm/50 Ml Syringe IV PUSH PRN PRN Hypoglycemia Protocol Enoxaparin Sodium 40 mg 03/08/25 09:00 03/08/25 09:07 Enoxaparin 40 Mg/0.4 Ml Syringe SUB-Q 40 mg DAILY SUSANNE Administration Glipizide 5 mg 03/08/25 06:30 03/08/25 09:03 Glipizide 5 Mg Tablet PO 5 mg DAILY@0630 SUSANNE Administration Glucagon 1 mg 03/07/25 13:01 Glucagon For Inj 1 Mg Vial IM PRN PRN Hypoglycemia Protocol Glucose 15 gm 03/07/25 13:01 Glucose Oral Gel 15 Gm Of Glucse In 37.5 Gm Tube PO PRN PRN Hypoglycemia Protocol Dextrose 1,000 mls @ 100 mls/hr 03/07/25 13:01 Dextrose 5% 1,000 Ml IVPB PRN PRN Hypoglycemia Protocol Ibuprofen 800 mg 03/07/25 20:56 03/08/25 05:24 Ibuprofen 400 Mg Tablet PO 800 mg Q8H PRN Administration pain first line 1-3 Insulin Aspart 3 - 6 units 03/07/25 17:00 03/08/25 09:05 Insulin Aspart (*Bkc) 100 Units/Ml SUB-Q Not Given TIDWM SUSANNE Protocol Insulin Aspart 1 - 3 units 03/07/25 21:00 03/07/25 19:53 Insulin Aspart (*Bkc) 100 Units/Ml SUB-Q Not Given HS [facility] Protocol Isosorbide Mononitrate 60 mg 03/08/25 09:00 03/08/25 09:04 Isosorbide Mononitrate 60 Mg Tab.Er.24h PO 60 mg QAM SUSANNE Administration Labetalol HCl 20 mg 03/07/25 13:17 Labetalol Hcl Inj 100 Mg/20 Ml Vial IV PUSH Q4H PRN SBP > 160 and HR> 60 -1st choice Losartan Potassium 25 mg 03/08/25 09:00 03/08/25 09:04 Losartan Potassium 25 Mg Tablet PO 25 mg DAILY [facility] Administration Morphine Sulfate 2 mg 03/08/25 10:31 Morphine Sulfate (*Crx) 4 Mg/Ml Inj IV PUSH Q1H PRN Pain Rated 7-10 Nitrofurantoin Macrocrystals 100 mg 03/08/25 09:00 03/08/25 09:05 Nitrofurantoin Monohyd Macrocr 100 Mg Cap PO 100 mg Q12HR SUSANNE Administration Nitroglycerin 0.4 mg 03/07/25 19:21 Nitroglycerin Sl 0.4 Mg Tablet SUBLINGUAL Q5MIN PRN Chest Pain Ondansetron HCl 4 mg 03/07/25 18:18 03/07/25 22:28 Ondansetron Inj 4 Mg/2 Ml Vial IV PUSH 4 mg Q4H PRN Administration Nausea And Vomiting Polyethylene Glycol 17 gm 03/08/25 09:00 03/08/25 09:06 Polyethylene Glycol 3350 17 Gm Powd.Pack PO 17 gm QAM [facility] Administration Ticagrelor 90 mg 03/07/25 21:00 03/08/25 09:06 Ticagrelor 90 Mg Tablet PO 90 mg Q12HR SUSANNE Administration Labs Labs: Laboratory Results - last 24 hr 03/07/25 03/07/25 03/07/25 10:34 12:10 14:07 WBC RBC Hgb Hct MCV MCH MCHC RDW Plt Count MPV Immature Gran % (Auto) Neut % (Auto) Lymph % (Auto) [place] % (Auto) Eos % (Auto) Baso % (Auto) Lymph # (Auto) [place] # (Auto) Eos # (Auto) Baso # (Auto) Abs Immat Gran (auto) Absolute Neuts (auto) Absolute Nucleated RBC Nucleated RBC % ESR Activ Coag Time Kaolin 245 H Sodium Potassium Chloride Carbon Dioxide Anion Gap BUN Creatinine Estim Creat Clear Calc Estimated GFR Glucose POC Capillary Glucose Hemoglobin A1c 8.3 H Calcium Phosphorus Magnesium Total Bilirubin AST ALT Alkaline Phosphatase Troponin I 0.304 H* D C-Reactive Protein Total Protein Albumin Urine Color Yellow Urine Appearance Cloudy H Urine pH 5.5 Ur Specific [place] 1.045 H Urine Protein Negative Urine Glucose (UA) 2+ H Urine Ketones Negative Ur Blood (Man) Trace Urine Nitrate Negative Urine Bilirubin Negative Urine Urobilinogen 0.2 Leukocyte Esterase Rfl 2+ H Urine RBC 0-2 Urine WBC 21-50 H Ur Squamous Epith Cells None seen Urine Bacteria 4+ H Urine Casts 0-2 Nasal MRSA (PCR) Blood Type A Positive Antibody Screen Negative 03/07/25 03/07/25 03/07/25 15:29 16:17 18:29 WBC RBC Hgb Hct MCV MCH MCHC RDW Plt Count MPV Immature Gran % (Auto) Neut % (Auto) Lymph % (Auto) [place] % (Auto) Eos % (Auto) Baso % (Auto) Lymph # (Auto) [place] # (Auto) Eos # (Auto) Baso # (Auto) Abs Immat Gran (auto) Absolute Neuts (auto) Absolute Nucleated RBC Nucleated RBC % ESR 55 H Activ Coag Time Kaolin Sodium Potassium Chloride Carbon Dioxide Anion Gap BUN Creatinine Estim Creat Clear Calc Estimated GFR Glucose POC Capillary Glucose 175 H Hemoglobin A1c Calcium Phosphorus Magnesium Total Bilirubin AST ALT Alkaline Phosphatase Troponin I 3.660 H* D C-Reactive Protein 1.2 H Total Protein Albumin Urine Color Urine Appearance Urine pH Ur Specific [place] Urine Protein Urine Glucose (UA) Urine Ketones Ur Blood (Man) Urine Nitrate Urine Bilirubin Urine Urobilinogen Leukocyte Esterase Rfl Urine RBC Urine WBC Ur Squamous Epith Cells Urine Bacteria Urine Casts Nasal MRSA (PCR) Not detected Blood Type Antibody Screen 03/07/25 03/08/25 03/08/25 19:47 00:24 05:04 WBC 10.2 H RBC 3.82 L Hgb 11.3 L Hct 36.9 L MCV 96.6 D MCH 29.6 MCHC 30.6 L RDW 13.7 Plt Count 191 MPV 10.7 H Immature Gran % (Auto) 0.9 H Neut % (Auto) 71.8 Lymph % (Auto) 17.9 L [place] % (Auto) 5.6 Eos % (Auto) 2.9 Baso % (Auto) 0.9 Lymph # (Auto) 1.82 [place] # (Auto) 0.6 Eos # (Auto) 0.3 Baso # (Auto) 0.1 Abs Immat Gran (auto) 0.09 H Absolute Neuts (auto) 7.3 H Absolute Nucleated RBC 0.000 Nucleated RBC % 0.0 ESR Activ Coag Time Kaolin Sodium 135 L Potassium 4.2 Chloride 106 Carbon Dioxide 21 L Anion Gap 8 BUN 14 Creatinine 0.65 L Estim Creat Clear Calc 140 Estimated GFR > 60 Glucose 158 H POC Capillary Glucose 176 H Hemoglobin A1c Calcium 8.7 Phosphorus 3.2 Magnesium 1.8 Total Bilirubin 0.7 AST 40 H ALT 13 Alkaline Phosphatase 91 Troponin I 6.070 H* D 6.680 H* C-Reactive Protein Total Protein 6.5 Albumin 3.6 Urine Color Urine Appearance Urine pH Ur Specific [place] Urine Protein Urine Glucose (UA) Urine Ketones Ur Blood (Man) Urine Nitrate Urine Bilirubin Urine Urobilinogen Leukocyte Esterase Rfl Urine RBC Urine WBC Ur Squamous Epith Cells Urine Bacteria Urine Casts Nasal MRSA (PCR) Blood Type Antibody Screen
[2025-03-08] MEDS: INSULIN ASPART (*BKC) 100 UNITS/ML SUB-Q (12:01)
[2025-03-08 12:50] LABS: Troponin I 5.370 ng/mL (0.000-0.034)
--- NOTE | 2025-03-08 14:18 | PM.IMPN ---
Progress Note: A&P Assessment and Plan (1) Hypertension: Code(s): I10 - Essential (primary) hypertension Status: Acute (2) Chest pain: Code(s): R07.9 - Chest pain, unspecified Status: Acute (3) NSTEMI (non-ST elevated myocardial infarction): Code(s): I21.4 - Non-ST elevation (NSTEMI) myocardial infarction Status: Acute (4) Pericarditis: Code(s): I31.9 - Disease of pericardium, unspecified Status: Acute (5) Hyperlipidemia: Code(s): E78.5 - Hyperlipidemia, unspecified Status: Acute Plan 44-year-old woman with aortic pathology status post aorto bi-iliac bypass surgery complicated by T10 nerve ischemia who has recently started working physical therapy to regain function of her legs, history of stroke, strong family history of cardiac conditions, and diabetes presents with chest pain whose clinical presentation was concerning for high risk NSTEMI 1. NSTEMI: Continue tele monitoring Status post PCI continue aspirin 81 mg p.o. daily indefinitely continue Brilinta 90 mg p.o. b.i.d. for minimum of 1 year if not more given length of stents continue carvedilol 12.5 mg p.o. b.i.d. and isosorbide mononitrate 60 mg p.o. daily trend troponin to peak Pericarditis start colchicine 0.6 mg p.o. b.i.d. for 2 months ibuprofen 100 mg p.o. t.i.d. for 2 days Await echocardiogram, ROSI 2. Diabetes mellitus: Sliding scale insulin Continue glipizide HbA1c 8.3 Consult life skills educator and dietitian Discussed with patient regarding discuss sitting with her primary care physician regarding adjustment of diabetic medication. Also recommended the patient monitor her blood sugars at home which she has not done in a year. 3. Chronic paraplegia: Patient has a Marcos catheter Patient does self catheterization at home 4. Possible UTI: Has been started on nitrofurantoin Monitor leukocytosis 5. DVT prophylaxis: Lovenox 6. Code status: Full 7. Disposition: Pending improvement, can be transferred out of ICU Time Spent With Patient Time: 39 minutes Subjective Date/time seen: 03/08/25 14:18 Interval history: S/p PCI c/o chest discomfort Review of Systems Review of Systems: All systems reviewed & are unremarkable except as noted in HPI and below Exam Narrative: General: NAD Lungs/Chest: Bilateral clear to auscultation Cardiac: RRR. Normal S1 S2. No murmurs. Abdomen: Normal bowel sounds.. Soft. NT. ND. Extremities: No edema. right radial pulse is palpable the right hand is warm with good cap refill. : Marcos in place with clear urine output Neurologic: Follows commands. AO x3 PERRL, she is able to move both her hands but not the legs. She does have a sensation to touch intact in both feet Skin: No Rash, several tattoos Objective Data Vital Signs Vital Signs: Vital Signs - 24 hr 03/07/25 14:35 03/07/25 14:55 03/07/25 15:20 Temperature 98.0 F 98.0 F 98.1 F Pulse Rate 83 84 89 Pulse Rate [Right Radial Palpation] Respiratory Rate 20 11 L 15 Blood Pressure 159/92 H 160/94 H 163/91 H Pulse Oximetry 100 100 100 Oxygen Delivery 03/07/25 15:40 03/07/25 16:00 03/07/25 16:00 Temperature 98.2 F 98.2 F 98.2 F Pulse Rate 82 88 88 Pulse Rate [Right Radial Palpation] Respiratory Rate 21 H 15 15 Blood Pressure 166/97 H 145/89 H 145/89 H Pulse Oximetry 98 98 98 Oxygen Delivery 03/07/25 16:00 03/07/25 16:00 03/07/25 16:20 Temperature 98.2 F Pulse Rate 82 87 Pulse Rate [Right Radial Palpation] Respiratory Rate 15 Blood Pressure 165/86 H Pulse Oximetry 98 100 Oxygen Delivery Room Air 03/07/25 16:40 03/07/25 17:00 03/07/25 17:20 Temperature 98.3 F 98.2 F 98.3 F Pulse Rate 85 92 93 Pulse Rate [Right Radial Palpation] Respiratory Rate 13 14 10 L Blood Pressure 164/91 H 158/138 H 166/83 H Pulse Oximetry 98 100 99 Oxygen Delivery 03/07/25 18:00 03/07/25 18:00 03/07/25 18:20 Temperature 98.4 F 98.2 F Pulse Rate 84 84 91 Pulse Rate [Right Radial Palpation] Respiratory Rate 17 18 Blood Pressure 150/82 H 164/89 H Pulse Oximetry 99 100 Oxygen Delivery 03/07/25 20:00 03/07/25 20:00 03/07/25 20:00 Temperature 98.4 F Pulse Rate 87 87 Pulse Rate [Right Radial Palpation] Respiratory Rate 19 Blood Pressure 151/73 H Pulse Oximetry 96 97 Oxygen Delivery Room Air 03/07/25 20:02 03/07/25 20:41 03/07/25 22:00 Temperature Pulse Rate 89 87 Pulse Rate [Right Radial Palpation] 87 Respiratory Rate 20 Blood Pressure 142/75 H Pulse Oximetry 96 Oxygen Delivery 03/07/25 23:42 03/07/25 23:48 03/08/25 00:00 Temperature 98.5 F Pulse Rate 85 80 Pulse Rate [Right Radial Palpation] Respiratory Rate 14 Blood Pressure 126/66 Pulse Oximetry 97 95 Oxygen Delivery Room Air 03/08/25 02:00 03/08/25 03:35 03/08/25 04:00 Temperature Pulse Rate 71 80 Pulse Rate [Right Radial Palpation] Respiratory Rate 20 Blood Pressure 87/50 L Pulse Oximetry 96 97 Oxygen Delivery Room Air 03/08/25 04:00 03/08/25 05:47 03/08/25 05:47 Temperature 97.9 F Pulse Rate 80 79 79 Pulse Rate [Right Radial Palpation] Respiratory Rate 20 16 Blood Pressure 116/54 L 123/68 Pulse Oximetry 99 97 Oxygen Delivery 03/08/25 08:00 03/08/25 08:00 03/08/25 08:00 Temperature 98.2 F Pulse Rate 94 84 Pulse Rate [Right Radial Palpation] Respiratory Rate 16 Blood Pressure 128/73 Pulse Oximetry 98 98 Oxygen Delivery Room Air 03/08/25 09:04 03/08/25 10:00 03/08/25 10:00 Temperature 98.2 F Pulse Rate 87 87 80 Pulse Rate [Right Radial Palpation] Respiratory Rate 16 Blood Pressure 141/69 H Pulse Oximetry 99 Oxygen Delivery Intake/Output Intake/Output: Intake & Output 03/05/25 03/06/25 03/07/25 03/08/25 23:59 23:59 23:59 23:59 Intake Total 1545 480 Output Total 1825 500 Balance -280 -20 Meds/Results Medications: Active Medications Generic Name Dose Route Start Last Admin Trade Name Freq PRN Reason Stop Dose Admin Hydrocodone Bitart/Acetaminophen 1 tab 03/08/25 09:56 03/08/25 10:21 Hydrocodone/Acetaminophen (*Crx) 5-325 Mg Tablet PO 1 tab Q4H PRN Administration Pain Rated 4-6 Aspirin 81 mg 03/08/25 09:00 03/08/25 09:04 Aspirin 81 Mg Enteric Tablet PO 81 mg QAM SUSANNE Administration Atorvastatin Calcium 80 mg 03/07/25 21:00 03/07/25 20:02 Atorvastatin 40 Mg Tablet PO 80 mg QHS SUSANNE Administration Bisacodyl 10 mg 03/07/25 13:12 Bisacodyl 10 Mg Suppository RECTAL QAM PRN Constipation Carvedilol 12.5 mg 03/08/25 09:00 03/08/25 09:04 Carvedilol 12.5 Mg Tablet PO 12.5 mg Q12HR SUSANNE Administration Colchicine 0.6 mg 03/07/25 21:00 03/08/25 09:05 Colchicine 0.6 Mg Tablet PO 0.6 mg Q12HR SUSANNE Administration Dextrose 12.5 gm 03/07/25 13:01 Dextrose 50% 25 Gm/50 Ml Syringe IV PUSH PRN PRN Hypoglycemia Protocol Enoxaparin Sodium 40 mg 03/08/25 09:00 03/08/25 09:07 Enoxaparin 40 Mg/0.4 Ml Syringe SUB-Q 40 mg DAILY SUSANNE Administration Glipizide 5 mg 03/08/25 06:30 03/08/25 09:03 Glipizide 5 Mg Tablet PO 5 mg DAILY@0630 SUSANNE Administration Glucagon 1 mg 03/07/25 13:01 Glucagon For Inj 1 Mg Vial IM PRN PRN Hypoglycemia Protocol Glucose 15 gm 03/07/25 13:01 Glucose Oral Gel 15 Gm Of Glucse In 37.5 Gm Tube PO PRN PRN Hypoglycemia Protocol Dextrose 1,000 mls @ 100 mls/hr 03/07/25 13:01 Dextrose 5% 1,000 Ml IVPB PRN PRN Hypoglycemia Protocol Ibuprofen 800 mg 03/08/25 14:00 03/08/25 13:07 Ibuprofen 400 Mg Tablet PO 800 mg Q8H SUSANNE Administration Insulin Aspart 3 - 6 units 03/07/25 17:00 03/08/25 12:01 Insulin Aspart (*Bkc) 100 Units/Ml SUB-Q 3 units TIDWM SUSANNE Administration Protocol Insulin Aspart 1 - 3 units 03/07/25 21:00 03/07/25 19:53 Insulin Aspart (*Bkc) 100 Units/Ml SUB-Q Not Given HS [facility] Protocol Isosorbide Mononitrate 60 mg 03/08/25 09:00 03/08/25 09:04 Isosorbide Mononitrate 60 Mg Tab.Er.24h PO 60 mg QAM SUSANNE Administration Labetalol HCl 20 mg 03/07/25 13:17 Labetalol Hcl Inj 100 Mg/20 Ml Vial IV PUSH Q4H PRN SBP > 160 and HR> 60 -1st choice Losartan Potassium 25 mg 03/08/25 09:00 03/08/25 09:04 Losartan Potassium 25 Mg Tablet PO 25 mg DAILY SUSANNE Administration Nitrofurantoin Macrocrystals 100 mg 03/08/25 09:00 03/08/25 09:05 Nitrofurantoin Monohyd Macrocr 100 Mg Cap PO 100 mg Q12HR SUSANNE Administration Nitroglycerin 0.4 mg 03/07/25 19:21 Nitroglycerin Sl 0.4 Mg Tablet SUBLINGUAL Q5MIN PRN Chest Pain Ondansetron HCl 4 mg 03/07/25 18:18 03/07/25 22:28 Ondansetron Inj 4 Mg/2 Ml Vial IV PUSH 4 mg Q4H PRN Administration Nausea And Vomiting Polyethylene Glycol 17 gm 03/08/25 09:00 03/08/25 09:06 Polyethylene Glycol 3350 17 Gm Powd.Pack PO 17 gm QAM SUSANNE Administration Ticagrelor 90 mg 03/07/25 21:00 03/08/25 09:06 Ticagrelor 90 Mg Tablet PO 90 mg Q12HR SUSANNE Administration Labs Labs: Laboratory Results - last 24 hr 03/07/25 03/07/25 03/07/25 14:07 15:29 16:17 WBC RBC Hgb Hct MCV MCH MCHC RDW Plt Count MPV Immature Gran % (Auto) Neut % (Auto) Lymph % (Auto) [place] % (Auto) Eos % (Auto) Baso % (Auto) Lymph # (Auto) [place] # (Auto) Eos # (Auto) Baso # (Auto) Abs Immat Gran (auto) Absolute Neuts (auto) Absolute Nucleated RBC Nucleated RBC % ESR Sodium Potassium Chloride Carbon Dioxide Anion Gap BUN Creatinine Estim Creat Clear Calc Estimated GFR Glucose POC Capillary Glucose 175 H Calcium Phosphorus Magnesium Total Bilirubin AST ALT Alkaline Phosphatase Troponin I C-Reactive Protein Total Protein Albumin Urine Color Yellow Urine Appearance Cloudy H Urine pH 5.5 Ur Specific [place] 1.045 H Urine Protein Negative Urine Glucose (UA) 2+ H Urine Ketones Negative Ur Blood (Man) Trace Urine Nitrate Negative Urine Bilirubin Negative Urine Urobilinogen 0.2 Leukocyte Esterase Rfl 2+ H Urine RBC 0-2 Urine WBC 21-50 H Ur Squamous Epith Cells None seen Urine Bacteria 4+ H Urine Casts 0-2 Nasal MRSA (PCR) Not detected 03/07/25 03/07/25 03/08/25 18:29 19:47 00:24 WBC RBC Hgb Hct MCV MCH MCHC RDW Plt Count MPV Immature Gran % (Auto) Neut % (Auto) Lymph % (Auto) [place] % (Auto) Eos % (Auto) Baso % (Auto) Lymph # (Auto) [place] # (Auto) Eos # (Auto) Baso # (Auto) Abs Immat Gran (auto) Absolute Neuts (auto) Absolute Nucleated RBC Nucleated RBC % ESR 55 H Sodium Potassium Chloride Carbon Dioxide Anion Gap BUN Creatinine Estim Creat Clear Calc Estimated GFR Glucose POC Capillary Glucose 176 H Calcium Phosphorus Magnesium Total Bilirubin AST ALT Alkaline Phosphatase Troponin I 3.660 H* D 6.070 H* D C-Reactive Protein 1.2 H Total Protein Albumin Urine Color Urine Appearance Urine pH Ur Specific [place] Urine Protein Urine Glucose (UA) Urine Ketones Ur Blood (Man) Urine Nitrate Urine Bilirubin Urine Urobilinogen Leukocyte Esterase Rfl Urine RBC Urine WBC Ur Squamous Epith Cells Urine Bacteria Urine Casts Nasal MRSA (PCR) 03/08/25 03/08/25 03/08/25 05:04 11:38 12:19 WBC 10.2 H RBC 3.82 L Hgb 11.3 L Hct 36.9 L MCV 96.6 D MCH 29.6 MCHC 30.6 L RDW 13.7 Plt Count 191 MPV 10.7 H Immature Gran % (Auto) 0.9 H Neut % (Auto) 71.8 Lymph % (Auto) 17.9 L [place] % (Auto) 5.6 Eos % (Auto) 2.9 Baso % (Auto) 0.9 Lymph # (Auto) 1.82 [place] # (Auto) 0.6 Eos # (Auto) 0.3 Baso # (Auto) 0.1 Abs Immat Gran (auto) 0.09 H Absolute Neuts (auto) 7.3 H Absolute Nucleated RBC 0.000 Nucleated RBC % 0.0 ESR Sodium 135 L Potassium 4.2 Chloride 106 Carbon Dioxide 21 L Anion Gap 8 BUN 14 Creatinine 0.65 L Estim Creat Clear Calc 140 Estimated GFR > 60 Glucose 158 H POC Capillary Glucose 219 H Calcium 8.7 Phosphorus 3.2 Magnesium 1.8 Total Bilirubin 0.7 AST 40 H ALT 13 Alkaline Phosphatase 91 Troponin I 6.680 H* 5.370 H* C-Reactive Protein Total Protein 6.5 Albumin 3.6 Urine Color Urine Appearance Urine pH Ur Specific [place] Urine Protein Urine Glucose (UA) Urine Ketones Ur Blood (Man) Urine Nitrate Urine Bilirubin Urine Urobilinogen Leukocyte Esterase Rfl Urine RBC Urine WBC Ur Squamous Epith Cells Urine Bacteria Urine Casts Nasal MRSA (PCR) Quality VTE Prophylaxis VTE prophylaxis: pharmacologic ordered
[2025-03-08] MEDS: ATORVASTATIN 40 MG TABLET 80 MG PO (20:41)
[2025-03-09] VITALS (9 sets, daily range): BP systolic 91–108; BP diastolic 49–56; PULSE 60–76; RESP 15–20; TEMP 36.3–36.8; O2SAT 97–100
[2025-03-09 04:30] LABS: Hematocrit 33.2 % (37.0-47.0); Hemoglobin 10.6 g/dL (12.0-15.0); Immature Granulocyte Percent A 0.7 % (0-0.5); Lymphocytes Absolute Auto 1.98 K/mm3 (0.9-3.2); Mean Corpuscular HGB Conc 31.9 g/dl (32-36); Mean Corpuscular Hemoglobin 29.8 pg (26-34); Mean Corpuscular Volume 93.3 fl (80-100); Nucleated Red Blood Cells Absolute Auto 0.000 K/mm3 (0.0-0.012); Nucleated Red Blood Cells Perc 0.0 % (0.0-0.2); Platelet Count Result 183 k/mm3 (150-375); Red Blood Count 3.56 M/mm3 (4.2-5.4); White Blood Count 8.6 K/mm3 (4.5-10.0)
[2025-03-09 04:57] LABS: Alanine Aminotransferase 11 U/L (6-35); Albumin Level 3.4 g/dL (3.5-5.1); Alkaline Phosphatase 86 U/L (38-126); Anion Gap 6 mmol/L (4-12); Aspartate Amino Transferase 27 U/L (14-36); Bilirubin,Total 0.5 mg/dL (0.2-1.3); Blood Urea Nitrogen 18 mg/dL (7-17); Calcium 9.1 mg/dL (8.4-10.2); Carbon Dioxide 25 mmol/L (22-30); Chloride 103 mmol/L (98-107); Estimated CRCL calculation 105 ml/min; Estimated Glomerular Filt Rate > 60; Glucose 179 mg/dL (65-110); Magnesium 2.0 mg/dL (1.6-2.3); Potassium 4.0 mmol/L (3.4-5.0); Sodium 134 mmol/L (137-145); Total Protein 6.1 g/dL (6.3-8.2)
[2025-03-09] MEDS: IBUPROFEN 400 MG TABLET 800 MG PO (05:04)
[2025-03-09] MEDS: LOSARTAN POTASSIUM 25 MG TABLET PO (08:25)
[2025-03-09] MEDS: COLCHICINE 0.6 MG TABLET PO (08:25)
[2025-03-09] MEDS: ASPIRIN 81 MG ENTERIC TABLET PO (08:25)
[2025-03-09] MEDS: ENOXAPARIN 40 MG/0.4 ML SYRINGE SUB-Q (08:26)
[2025-03-09] MEDS: NITROFURANTOIN MONOHYD MACROCR 100 MG CAP PO (08:26)
[2025-03-09] MEDS: ISOSORBIDE MONONITRATE 60 MG TAB.ER.24H PO (08:26)
[2025-03-09] MEDS: TICAGRELOR 90 MG TABLET PO (08:26)
--- NOTE | 2025-03-09 08:51 | PM.PNCARD ---
Progress Note: A&P Assessment and Plan (1) NSTEMI (non-ST elevated myocardial infarction): Code(s): I21.4 - Non-ST elevation (NSTEMI) myocardial infarction Status: Acute (2) Pericarditis: Code(s): I31.9 - Disease of pericardium, unspecified Status: Acute (3) Hyperlipidemia: Code(s): E78.5 - Hyperlipidemia, unspecified Status: Acute Plan 44-year-old woman with aortic pathology status post aorto bi-iliac bypass surgery complicated by T10 nerve ischemia who has recently started working physical therapy to regain function of her legs, history of stroke, strong family history of cardiac conditions, and diabetes presents with chest pain whose clinical presentation was concerning for high risk NSTEMI NSTEMI -status post PCI - Successful PCI to the mid LAD with 3.5 x 30mm [place] SOWMYA; post dilated with 4.0 x 15mm NC and 4.0 x 8mm NC with good angiographic results. Successful PTCA of the ostial diagonal branch. Successful PCI to the left circumflex with overlapping 3.5 x 38mm and 3.5 x 18mm [place] SOWMYA with good angiographic results. -continue aspirin 81 mg p.o. daily indefinitely -continue Brilinta 90 mg p.o. b.i.d. for minimum of 1 year if not more given length of stents -Decrease carvedilol to 6.25 mg p.o. b.i.d. and isosorbide mononitrate 30 mg p.o. daily given hypotension overnight and after medication administration this morning Pericarditis -start colchicine 0.6 mg p.o. b.i.d. for 2 months -ibuprofen 100 mg p.o. t.i.d. for 2 days -echocardiogram showed normal LV function with no significant valvular abnormalities and small pericardial effusion Hyperlipidemia -atorvastatin 80 mg every evening Can discharge today if blood pressure improves (88/38 mmHg currently). Needs to be transferred OOB today as well. Subjective Date/time seen: 03/09/25 08:51 Interval history: Chest pain is improving. No shortness of breath. Cardiology follow up visit Date of service 03/09/2025: No chest pain or shortness of breath. Does occassionally feel a sensation of a skipped heartbeat. Review of Systems Cardiovascular: Cardiovascular: Reports as per HPI Respiratory: Respiratory: Reports as per HPI Exam Const: General: comfortable HENMT: Mouth: Yes moist mucous membranes Eyes: EOM: EOMs intact bilaterally Neck: Neck: no JVD Resp: Effort & Inspection: normal respiratory effort Auscultation: clear to auscultation bilaterally Cardio: Rate: regular rate Rhythm: regular rhythm Extrem: General: no pedal edema Objective Data Vital Signs Vital Signs: Vital Signs - 24 hr 03/08/25 09:04 03/08/25 10:00 03/08/25 10:00 Temperature 36.8 C Pulse Rate 87 87 80 Respiratory Rate 16 Blood Pressure 141/69 H Pulse Oximetry 99 Oxygen Delivery Fraction of Inspired Oxygen 03/08/25 12:00 03/08/25 12:00 03/08/25 12:00 Temperature 37.2 C Pulse Rate 88 81 Respiratory Rate 18 Blood Pressure 134/66 Pulse Oximetry 98 99 Oxygen Delivery Room Air Fraction of Inspired Oxygen 03/08/25 14:00 03/08/25 14:00 03/08/25 16:00 Temperature 37.2 C Pulse Rate 90 79 Respiratory Rate 18 Blood Pressure 122/78 Pulse Oximetry 99 97 Oxygen Delivery Room Air Fraction of Inspired Oxygen 03/08/25 16:00 03/08/25 16:00 03/08/25 18:00 Temperature 36.8 C Pulse Rate 83 83 76 Respiratory Rate 17 Blood Pressure 130/77 Pulse Oximetry 97 Oxygen Delivery Fraction of Inspired Oxygen 03/08/25 18:00 03/08/25 19:51 03/08/25 19:52 Temperature 37.0 C Pulse Rate 77 74 Respiratory Rate 19 20 Blood Pressure 106/58 L Pulse Oximetry 97 97 97 Oxygen Delivery Room Air Fraction of Inspired Oxygen 03/08/25 20:00 03/08/25 20:00 03/08/25 20:00 Temperature 36.9 C Pulse Rate 75 74 Respiratory Rate 18 Blood Pressure 108/58 L Pulse Oximetry 97 Oxygen Delivery Room Air Fraction of Inspired Oxygen 03/08/25 20:40 03/08/25 22:00 03/08/25 22:00 Temperature 36.7 C Pulse Rate 82 75 75 Respiratory Rate 15 Blood Pressure 113/61 Pulse Oximetry 94 Oxygen Delivery Fraction of Inspired Oxygen 03/09/25 00:00 03/09/25 00:00 03/09/25 00:00 Temperature 36.8 C Pulse Rate 75 63 Respiratory Rate 19 Blood Pressure 91/55 L Pulse Oximetry 97 Oxygen Delivery Room Air Fraction of Inspired Oxygen 03/09/25 02:00 03/09/25 04:00 03/09/25 04:00 Temperature 36.6 C Pulse Rate 63 76 Respiratory Rate 15 Blood Pressure 106/49 L Pulse Oximetry 98 Oxygen Delivery Room Air Fraction of Inspired Oxygen 03/09/25 04:00 03/09/25 06:00 03/09/25 08:25 Temperature Pulse Rate 67 73 67 Respiratory Rate Blood Pressure Pulse Oximetry Oxygen Delivery Fraction of Inspired Oxygen Intake/Output Intake/Output: Intake & Output 03/06/25 03/07/25 03/08/25 03/09/25 23:59 23:59 23:59 23:59 Intake Total 1545 1440 400 Output Total 1825 1200 700 Balance -280 240 -300 Meds/Results Medications: Active Medications Generic Name Dose Route Start Last Admin Trade Name Freq PRN Reason Stop Dose Admin Hydrocodone Bitart/Acetaminophen 1 tab 03/08/25 09:56 03/08/25 20:40 Hydrocodone/Acetaminophen (*Crx) 5-325 Mg Tablet PO 1 tab Q4H PRN Administration Pain Rated 4-6 Aspirin 81 mg 03/08/25 09:00 03/09/25 08:25 Aspirin 81 Mg Enteric Tablet PO 81 mg QAM SUSANNE Administration Atorvastatin Calcium 80 mg 03/07/25 21:00 03/08/25 20:41 Atorvastatin 40 Mg Tablet PO 80 mg QHS SUSANNE Administration Bisacodyl 10 mg 03/07/25 13:12 Bisacodyl 10 Mg Suppository RECTAL QAM PRN Constipation Carvedilol 12.5 mg 03/08/25 09:00 03/09/25 08:25 Carvedilol 12.5 Mg Tablet PO 12.5 mg Q12HR SUSANNE Administration Colchicine 0.6 mg 03/07/25 21:00 03/09/25 08:25 Colchicine 0.6 Mg Tablet PO 0.6 mg Q12HR SUSANNE Administration Dextrose 12.5 gm 03/07/25 13:01 Dextrose 50% 25 Gm/50 Ml Syringe IV PUSH PRN PRN Hypoglycemia Protocol Enoxaparin Sodium 40 mg 03/08/25 09:00 03/09/25 08:26 Enoxaparin 40 Mg/0.4 Ml Syringe SUB-Q 40 mg DAILY SUSANNE Administration Glipizide 5 mg 03/09/25 08:00 03/09/25 08:26 Glipizide 5 Mg Tablet PO 5 mg DAILY@0800 SUSANNE Administration Glucagon 1 mg 03/07/25 13:01 Glucagon For Inj 1 Mg Vial IM PRN PRN Hypoglycemia Protocol Glucose 15 gm 03/07/25 13:01 Glucose Oral Gel 15 Gm Of Glucse In 37.5 Gm Tube PO PRN PRN Hypoglycemia Protocol Dextrose 1,000 mls @ 100 mls/hr 03/07/25 13:01 Dextrose 5% 1,000 Ml IVPB PRN PRN Hypoglycemia Protocol Ibuprofen 800 mg 03/08/25 14:00 03/09/25 05:04 Ibuprofen 400 Mg Tablet PO 800 mg Q8H SUSANNE Administration Insulin Aspart 3 - 6 units 03/07/25 17:00 03/09/25 08:26 Insulin Aspart (*Bkc) 100 Units/Ml SUB-Q Not Given TIDWM [facility] Protocol Insulin Aspart 1 - 3 units 03/07/25 21:00 03/08/25 20:43 Insulin Aspart (*Bkc) 100 Units/Ml SUB-Q Not Given HS [facility] Protocol Isosorbide Mononitrate 60 mg 03/08/25 09:00 03/09/25 08:26 Isosorbide Mononitrate 60 Mg Tab.Er.24h PO 60 mg QAM SUSANNE Administration Labetalol HCl 20 mg 03/07/25 13:17 Labetalol Hcl Inj 100 Mg/20 Ml Vial IV PUSH Q4H PRN SBP > 160 and HR> 60 -1st choice Losartan Potassium 25 mg 03/08/25 09:00 03/09/25 08:25 Losartan Potassium 25 Mg Tablet PO 25 mg DAILY SUSANNE Administration Nitrofurantoin Macrocrystals 100 mg 03/08/25 09:00 03/09/25 08:26 Nitrofurantoin Monohyd Macrocr 100 Mg Cap PO 100 mg Q12HR SUSANNE Administration Nitroglycerin 0.4 mg 03/07/25 19:21 Nitroglycerin Sl 0.4 Mg Tablet SUBLINGUAL Q5MIN PRN Chest Pain Ondansetron HCl 4 mg 03/07/25 18:18 03/07/25 22:28 Ondansetron Inj 4 Mg/2 Ml Vial IV PUSH 4 mg Q4H PRN Administration Nausea And Vomiting Polyethylene Glycol 17 gm 03/08/25 09:00 03/09/25 08:26 Polyethylene Glycol 3350 17 Gm Powd.Pack PO 17 gm QAM SUSANNE Administration Ticagrelor 90 mg 03/07/25 21:00 03/09/25 08:26 Ticagrelor 90 Mg Tablet PO 90 mg Q12HR SUSANNE Administration Labs Labs: Laboratory Results - last 24 hr 03/08/25 03/08/25 03/08/25 11:38 12:19 16:49 WBC RBC Hgb Hct MCV MCH MCHC RDW Plt Count MPV Immature Gran % (Auto) Neut % (Auto) Lymph % (Auto) [place] % (Auto) Eos % (Auto) Baso % (Auto) Lymph # (Auto) [place] # (Auto) Eos # (Auto) Baso # (Auto) Abs Immat Gran (auto) Absolute Neuts (auto) Absolute Nucleated RBC Nucleated RBC % Sodium Potassium Chloride Carbon Dioxide Anion Gap BUN Creatinine Estim Creat Clear Calc Estimated GFR Glucose POC Capillary Glucose 219 H 155 H Calcium Phosphorus Magnesium Total Bilirubin AST ALT Alkaline Phosphatase Troponin I 5.370 H* Total Protein Albumin 03/08/25 03/09/25 03/09/25 20:43 04:16 08:23 WBC 8.6 RBC 3.56 L Hgb 10.6 L Hct 33.2 L MCV 93.3 MCH 29.8 MCHC 31.9 L RDW 13.5 Plt Count 183 MPV 10.5 H Immature Gran % (Auto) 0.7 H Neut % (Auto) 65.6 Lymph % (Auto) 23.2 [place] % (Auto) 7.0 Eos % (Auto) 2.9 Baso % (Auto) 0.6 Lymph # (Auto) 1.98 [place] # (Auto) 0.6 Eos # (Auto) 0.3 Baso # (Auto) 0.1 Abs Immat Gran (auto) 0.06 H Absolute Neuts (auto) 5.6 Absolute Nucleated RBC 0.000 Nucleated RBC % 0.0 Sodium 134 L Potassium 4.0 Chloride 103 Carbon Dioxide 25 Anion Gap 6 BUN 18 H Creatinine 0.89 Estim Creat Clear Calc 105 Estimated GFR > 60 Glucose 179 H POC Capillary Glucose 190 H 165 H Calcium 9.1 Phosphorus 3.9 Magnesium 2.0 Total Bilirubin 0.5 AST 27 ALT 11 Alkaline Phosphatase 86 Troponin I Total Protein 6.1 L Albumin 3.4 L Quality VTE Prophylaxis VTE prophylaxis: pharmacologic ordered
--- NOTE | 2025-03-09 11:35 | PC.NURSE ---
Pt. hypotensive this AM, Per Fatmata Jimenez would like pt up to her wheelchair and for improved BP so that she may discharge. Med dose adjustments were made to coreg and imdur (see orders) however patient stated last time i was put on something for my blood pressure it did this and made it too low. I don't like how it makes me feel dizzy, I don't want to take it again Unwilling to elaborate on which med(s) she would be refusing to take. BP 99/49 and otherwise asymptomatic. She is willing to get up to wheelchair later
--- NOTE | 2025-03-09 12:01 | PC.NURSE ---
[facility] notified of likely discharge today and despite all patients prescriptions being transmitted to them, the only script needing filled and delivered from [facility] is the [id number].
--- NOTE | 2025-03-09 13:17 | P.DS_ITS ---
DS: Admitting Diagnosis Discharge Date 03/09/2025 Admitting Diagnosis NSTEMI DS: Discharge Diagnosis Discharge Diagnosis (1) NSTEMI (non-ST elevated myocardial infarction): Code(s): I21.4 - Non-ST elevation (NSTEMI) myocardial infarction Status: Acute (2) Pericarditis: Code(s): I31.9 - Disease of pericardium, unspecified Status: Acute (3) Hyperlipidemia: Code(s): E78.5 - Hyperlipidemia, unspecified Status: Acute Plan 44-year-old woman with aortic pathology status post aorto bi-iliac bypass surgery complicated by T10 nerve ischemia who has recently started working physical therapy to regain function of her legs, history of stroke, strong family history of cardiac conditions, and diabetes presents with chest pain whose clinical presentation was concerning for high risk NSTEMI NSTEMI -status post PCI - Successful PCI to the mid LAD with 3.5 x 30mm [place] SOWMYA; post dilated with 4.0 x 15mm NC and 4.0 x 8mm NC with good angiographic results. Successful PTCA of the ostial diagonal branch. Successful PCI to the left circumflex with overlapping 3.5 x 38mm and 3.5 x 18mm [place] SOWMYA with good angiographic results. -continue aspirin 81 mg p.o. daily indefinitely -continue Brilinta 90 mg p.o. b.i.d. for minimum of 1 year if not more given length of stents -Decrease carvedilol to 6.25 mg p.o. b.i.d. and isosorbide mononitrate 30 mg p.o. daily given hypotension overnight and after medication administration this morning Pericarditis -start colchicine 0.6 mg p.o. b.i.d. for 2 months -ibuprofen 100 mg p.o. t.i.d. for 2 days -echocardiogram showed normal LV function with no significant valvular abnormalities and small pericardial effusion Hyperlipidemia -atorvastatin 80 mg every evening Can discharge today if blood pressure improves (88/38 mmHg currently). Needs to be transferred OOB today as well. DS: Summary Hospital Course Hospital Course: 03/07/2025: 44-year-old woman with aortic pathology status post aorto bi-iliac bypass surgery complicated by T10 nerve ischemia who has recently started work ing physical therapy to regain function of her legs, history of stroke, strong family history of cardiac conditions, and diabetes presents with chest pain. Chest pain woke her up around 3:00 a.m. this morning and is pressure-like in sensation radiation to both arms and neck. She continued to have pain prompting emergency room visit. Previously did not have this type of pain while working with physical therapy. At [place] [facility] she was found to have an ischemic EKG and was transferred for anterior STEMI. S/p Successful PCI to the mid LAD with 3.5 x 30mm [place] SOWMYA; post dilated with 4.0 x 15mm NC and 4.0 x 8mm NC with good angiographic results. Successful PTCA of the ostial diagonal branch. Successful PCI to the left circumflex with overlapping 3.5 x 38mm and 3.5 x 18mm [place] SOWMYA with good angiographic results. 03/08/2025: Started on chochicine and ibuprofen for pericarditis 03/09/2025: Stable, no further chest pain. Blood pressure improved throughout day. Stable and appropriate for discharge today. Time Spent with Patient Time attestation: Total time spent providing and/or coordinating discharge services: Exam Const: General: comfortable HENMT: Mouth: Yes moist mucous membranes Eyes: EOM: EOMs intact bilaterally Neck: Neck: no JVD Resp: Effort & Inspection: normal respiratory effort Auscultation: clear to auscultation bilaterally Cardio: Rate: regular rate and tachycardic Rhythm: regular rhythm Extrem: General: no pedal edema DS: Data Data Completed and Pending Labs on day of discharge: Labs from last 24 hours 03/09/25 03/09/25 03/08/25 08:23 04:16 20:43 WBC 8.6 RBC 3.56 L Hgb 10.6 L Hct 33.2 L MCV 93.3 MCH 29.8 MCHC 31.9 L RDW 13.5 Plt Count 183 MPV 10.5 H Immature Gran % (Auto) 0.7 H Neut % (Auto) 65.6 Lymph % (Auto) 23.2 [place] % (Auto) 7.0 Eos % (Auto) 2.9 Baso % (Auto) 0.6 Lymph # (Auto) 1.98 [place] # (Auto) 0.6 Eos # (Auto) 0.3 Baso # (Auto) 0.1 Abs Immat Gran (auto) 0.06 H Absolute Neuts (auto) 5.6 Absolute Nucleated RBC 0.000 Nucleated RBC % 0.0 Sodium 134 L Potassium 4.0 Chloride 103 Carbon Dioxide 25 Anion Gap 6 BUN 18 H Creatinine 0.89 Estim Creat Clear Calc 105 Estimated GFR > 60 Glucose 179 H POC Capillary Glucose 165 H 190 H Calcium 9.1 Phosphorus 3.9 Magnesium 2.0 Total Bilirubin 0.5 AST 27 ALT 11 Alkaline Phosphatase 86 Total Protein 6.1 L Albumin 3.4 L 03/08/25 16:49 WBC RBC Hgb Hct MCV MCH MCHC RDW Plt Count MPV Immature Gran % (Auto) Neut % (Auto) Lymph % (Auto) [place] % (Auto) Eos % (Auto) Baso % (Auto) Lymph # (Auto) [place] # (Auto) Eos # (Auto) Baso # (Auto) Abs Immat Gran (auto) Absolute Neuts (auto) Absolute Nucleated RBC Nucleated RBC % Sodium Potassium Chloride Carbon Dioxide Anion Gap BUN Creatinine Estim Creat Clear Calc Estimated GFR Glucose POC Capillary Glucose 155 H Calcium Phosphorus Magnesium Total Bilirubin AST ALT Alkaline Phosphatase Total Protein Albumin Discharge Plan Discharge Attending physician on discharge: Cynthia Valverde Consulting providers: Rojelio Wilson Discharging Clinician: Fatmata Sahni Patient Disposition: Home Activity: other - see discharge instructions Diet: heart healthy Wound Care Instructions: other - see discharge instructions Discharge Instructions: [facility] [address] [place] [address] DISCHARGE INSTRUCTIONS - POST PCI Activity 1. No driving x 48hrs. 2. No lifting, pushing or pulling more than 10 pounds for 1 week. 3. No strenuous exercise or activity (including sexual activity) until you are released to do so. 4. May shower but no tub baths or swimming pool for 1 week. Medications DO NOT STOP YOUR MEDICATIONS ONLY YOUR PILE DRIVING TECHNICIAN CAN STOP THE FOLLOWING MEDICATIONS - PLEASE CALL THE OFFICE WITH QUESTIONS. *Aspirin *Ticagrelor (Brilinta) *Atorvastatin *Losartan *Coreg Important Reminders 1. Keep your stent card in your wallet at all times 2. Follow a heart healthy diet paying extra attention to cholesterol and fats. 3. Stay hydrated. 4. If you have chest pain unrelieved by rest or nitroglycerin (if prescribed) call 911 immediately. 5. If you miss one dose of Brilinta (if prescribed) take a tablet at the next time due. If you miss 2 doses take a tablet when you remember and resume at the next time due. *For any other questions please call the office at [phone]. Office hours are 8AM 4:30PM Saturday through Saturday. Patient Instructions: Antibiotic Form, How to Stop Smoking (GEN), Heart Healthy Diet (DC), Basic Carbohydrate Counting (DC) Patient Language: Armenian Stand Alone Forms: General Discharge Information Follow-up/Referrals: Fatmata Sahni APN-C [Advanced Practice Nurse, Cardiology] Discharge Medications: New losartan 25 mg Tablet 25 mg PO DAILY Qty: 90 0RF nitrofurantoin monohyd/m-cryst [Macrobid] 100 mg Capsule 100 mg PO Q12HR Qty: 7 0RF ticagrelor [Brilinta] 90 mg Tablet 90 mg PO Q12HR Qty: 180 0RF atorvastatin [Lipitor] 80 mg tablet 80 mg PO HS Qty: 90 0RF ibuprofen 800 mg tablet 800 mg PO TID Qty: 7 0RF colchicine 0.6 mg tablet 0.6 mg PO BID Qty: 120 0RF carvedilol [Coreg] 6.25 mg Tablet 6.25 mg PO Q12HR 30 Days Qty: 60 1RF isosorbide mononitrate 30 mg Tablet Extended Release 24 Hr 30 mg PO QAM 30 Days Qty: 30 1RF atorvastatin [Lipitor] 80 mg tablet 80 mg PO HS Qty: 90 0RF carvedilol [Coreg] 12.5 mg Tablet 12.5 mg PO Q12HR Qty: 180 0RF ibuprofen 800 mg tablet 800 mg PO TID Qty: 7 0RF Continued polyethylene glycol 3350 [Miralax] 17 gram Powder In Packet 17 g PO QAM Qty: 30 0RF clonazepam [Klonopin] 0.5 mg tablet 1 mg PO BID PRN (Reason: anxiety) Patient Comments: 1mg bid prn Rx Instructions: administer 30 minutes before bedtime glipizide 5 mg tablet extended release 24hr 5 mg PO DAILY aspirin 81 mg Tablet 81 mg PO DAILY Qty: 90 0RF Discontinued atorvastatin 40 mg tablet 40 mg PO QPM Date of admission: 03/07/25 11:40 Primary Care Provider: SamsonKorey Admitting Provider: Angel Bloom Attending physician on admission: Angel Bloom Condition: Stable Quality VTE Prophylaxis VTE prophylaxis: pharmacologic ordered
--- OUTSIDE RECORDS SUMMARY | 2025-03-10 09:23 | XMS_ITS | Clinical Summary ---
Author Organization [facility] Address [address] [place] [address] Phone Care Team Providers Care Feed Crusher Operator Name Role Phone Anjum Araiza MD Primary Care Provider [phone] Allergies No known active allergies Medications citalopram [...] mg by mouth every 6 hours. rx [id number] Active pantoprazole (PROTONIX) 40 MG Tablet Delayed Response Take 40 mg by mouth daily. [id number] Active Probiotic Product (Daily Probiotic) Capsule Take 1 Tablet by mouth daily. Active metoclopramide (REGLAN) 10 MG Tablet Take 10 mg by mouth 2 times daily. 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
--- OUTSIDE RECORDS SUMMARY | 2025-03-10 09:23 | XMS_ITS | Encounter Summary ---
Author Organization [facility] Address [address] 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
--- OUTSIDE RECORDS SUMMARY | 2025-03-10 09:23 | XMS_ITS | Clinical Summary ---
Author Organization [facility] Address [address] [place] [phone] Phone Care Team Providers Care Unit Aide Tech Name Role Phone Anjum Araiza MD Primary [...] Encounters Date Type Department Care Team Description 03/02/2025 External Device Data STL ABSTRACTION Provider, Abstract 02/16/2025 External Device Data ST[facility] ABSTRACTION Provider, Abstract 02/16/2025 External Device Data [facility] ABSTRACTION Provider, Abstract 02/10/2025 External Device Data ST[facility] ABSTRACTION Provider, Abstract 02/02/2025 External Device Data STL ABSTRACTION Provider, Abstract 02/02/2025 External Device Data STL ABSTRACTION Provider, Abstract 01/05/2025 External Device Data STL ABSTRACTION Provider, Abstract [...] (1 of 3 - 19+ 3-dose series) 04/17 HPV/Cotest (21-29) 2003 HPV VACCINES (1 - 3-dose SCDM series) 2009 CERVICAL CANCER SCREENING 2012 HPV/Cotest (30-65) 2012 PAP SMEAR 2012 BREAST CANCER SCREENING 2022 INFLUENZA VACCINE (#1) 2025 Insurance [place] [id number] RX [employer] RX Member Subscriber Plan / Payer ( fective 2024-Present) Name:Bryan Del Real Relation to Subscriber:Self Name:Bryan Del Real Subscriber ID:Not on file Payer ID:Not on file Group ID:[id number] Type:RX Commercial Address: [address] Advance Directives For more information, please contact: [phone] * Full Code (Latest Code Status on File) Date Activated Date Inactivated Comments 03/04/2024 4:49 PM 03/07/2024 9:32 PM Care Teams Unit Aide Tech Relationship Specialty Start Date End Date Anjum Araiza MD [address] [place] [id number] PCP - General Family Practice 03/07/24
[2025-03-10 14:08] LABS: ANA by IFA Rfx Titer/Pattern Negative (.)
--- NOTE | 2025-03-19 16:00 | PCCDE ---
03/19/25: DM educator courtesy follow up call completed. Pt denies questions, concerns re: DM Has PCP appt scheduled for the end of the month and states to talking with them since DC re: DM Medications.
== END 2025-03-09 14:32 | disposition home or self-care (01) | DRG 322 ==
LOC: ANHED 10:38 → ANHICU 15:05
PROVIDERS: Internal Medicine; Admitting Provider Internal Medicine; Emergency Provider Emergency Medicine; PCP Physician Assistant; Visit Provider Nurse Practitioner
PROC: 4A023N7 Measurement of Cardiac Sampling and Pressure, Left Heart, Percutaneous Approach (ICD-10-PCS; CPT 93452; principal; 2025-03-07 10:30)
PROC: 027136Z Dilation of Coronary Artery, Two Arteries with Three Drug-eluting Intraluminal Devices, Percutaneous Approach (ICD-10-PCS; 2025-03-07 10:30)
PROC: 027136Z Dilation of Coronary Artery, Two Arteries with Three Drug-eluting Intraluminal Devices, Percutaneous Approach (ICD-10-PCS; 2025-03-07 10:30)
PROC: 027136Z Dilation of Coronary Artery, Two Arteries with Three Drug-eluting Intraluminal Devices, Percutaneous Approach (ICD-10-PCS; CPT 92979; 2025-03-07 10:30)
PROC: 027034Z Dilation of Coronary Artery, One Artery with Drug-eluting Intraluminal Device, Percutaneous Approach (ICD-10-PCS; CPT 92928; 2025-03-07 10:30)
DX: I21.4 Non-ST elevation (NSTEMI) myocardial infarction (principal); G82.20 Paraplegia, unspecified; G97.82 Other postprocedural complications and disorders of nervous system; I31.9 Disease of pericardium, unspecified; I25.10 Atherosclerotic heart disease of native coronary artery without angina pectoris; I10 Essential (primary) hypertension; F17.210 Nicotine dependence, cigarettes, uncomplicated; E78.5 Hyperlipidemia, unspecified; E10.42 Type 1 diabetes mellitus with diabetic polyneuropathy; F12.90 Cannabis use, unspecified, uncomplicated; Z79.84 Long term (current) use of oral hypoglycemic drugs; Z89.422 Acquired absence of other left toe(s); Z89.421 Acquired absence of other right toe(s); Z86.718 Personal history of other venous thrombosis and embolism; Z98.890 Other specified postprocedural states; Z79.82 Long term (current) use of aspirin; Z82.49 Family history of ischemic heart disease and other diseases of the circulatory system
CPT/HCPCS: 36415; 80053; 80061; 81001; 82948; 83036; 83735; 84100; 84484; 85025; 85610; 85652; 85730; 86038; 86140; 86850; 86900; 86901; 87086; 87186; 87641; 92978; 92979; 93005; 93458; 99285; A9270; C1725; C1753; C1769; C1874; C1887; C1894; C8929; C9600; J1644; J1650; J1815; J2003; J2250; J2270; J2305; J2405; J3010; J7030; J7040; Q9957